=== PATIENT | male | born 1970 | race African-American/Black ===

== ENCOUNTER 2016-07-21 18:52 | Emergency (ER) | payer SELFPAY ==
[~2016-07-21] VITALS: Ht 172.7 cm; Wt 73.5 kg
[~2016-07-21 18:52] MED LIST: AGM875T PO; ALBU8.5H2 IH; CPR500T PO; INSU100I16 SQ; LISI2.5T PO; METF-380 PO
[2016-07-21] MEDS ORDERED: SERT50TA9 PO (19:06)
[2016-07-21] MEDS ORDERED: KETOROLAC 60 MG/2 ML VIAL IM ONE (19:30)
[2016-07-21] MEDS ORDERED: ORPHENADRINE 60 MG/2 ML (NORFLEX) AMP IM ONE (19:30)
--- NOTE | 2016-07-21 20:04 | Diagnostic Imaging Report ---
INDICATION: Status post fall with tailbone pain AP and lateral views of the sacrum and coccyx are obtained. Sacral foramina appear unremarkable. The SI joints appear unremarkable. There is no fracture or acute bony abnormality seen. IMPRESSION: Negative sacrum and coccyx. Dictated by: Dictated on workstation # [id number]
--- NOTE | 2016-07-21 20:05 | Diagnostic Imaging Report ---
INDICATION: Status post fall from truck with back pain AP and lateral views of the lumbar spine are obtained. The lumbar vertebrae are normal in height and alignment. There is no fracture or subluxation. There is no significant disc space narrowing. IMPRESSION: Negative lumbar spine. Dictated by: Dictated on workstation # [id number]
[2016-07-21] MEDS ORDERED: CYCL10TA9 PO (20:28)
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
[2016-07-21 20:37] VITALS: BP 110/66
== END 2016-07-21 20:33 | disposition home or self-care (01) ==
LOC: EDUNIT# 18:52 → ER 18:57
DX: S39.92XA Unspecified injury of lower back, initial encounter (principal); S19.9XXA Unspecified injury of neck, initial encounter; I10 Essential (primary) hypertension; E11.9 Type 2 diabetes mellitus without complications; F17.210 Nicotine dependence, cigarettes, uncomplicated; Z79.84 Long term (current) use of oral hypoglycemic drugs; Z79.4 Long term (current) use of insulin; W20.8XXA Other cause of strike by thrown, projected or falling object, initial encounter; W17.89XA Other fall from one level to another, initial encounter; Y99.8 Other external cause status
CPT/HCPCS: 72100; 72220; 96372; 99281

== ENCOUNTER 2017-01-05 01:44 | Emergency (ER) | payer SELFPAY ==
[~2017-01-05] VITALS: Ht 172.7 cm; Wt 68.0 kg
[~2017-01-05 01:44] MED LIST changes: +CYCL10TA9 PO; +SERT50TA9 PO
--- OUTSIDE RECORDS SUMMARY | 2017-01-05 01:51 | XMS REPORT ---
Author Author NEY MARTINEZ Organization [facility] Address [address] [place] [address] Care Team Providers Care Car Filler Name Role Phone MARTINEZNEY Greenwood Unavailable PROBLEMS Type Condition ICD9-CM Code SCK08-QL Code Onset Dates Condition Status SNOMED Code Problem Hyperlipidemia E78.5 Active 51456241 Problem Plantar wart B07.0 Active 77131549 Problem Mixed hyperlipidemia E78.2 Active 711802420 Problem Anxiety F41.9 Active 49308994 Problem Porokeratosis Q82.8 Active 285870077 Problem Osteoarthritis, unspecified osteoarthritis type, unspecified site M19.90 Active 314899322 Problem Essential hypertension I10 Active 65123505 Problem Neuropathy G62.9 Active 986956234 Problem 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 Active Problem Shoulder pain, left M25.512 Active 07171696 Problem Non compliance with medical treatment Z91.19 Active 8027467 Problem Non compliance w medication regimen Z91.14 Active 548947264 Problem Impotence N52.9 Active 103507831 Problem Type 2 diabetes mellitus with diabetic neuropathy E11.40 Active 9693745513002 ALLERGIES Unknown Allergies SOCIAL HISTORY No smoking Hx information available PLAN OF CARE VITAL SIGNS MEDICATIONS Medication Instructions Dosage Frequency Start Date End Date Duration Status Viagra 25 MG Orally Once a day 1 tablet as needed 24h Mar,Apr 30 day(s) Active RESULTS No Results PROCEDURES No Known procedures IMMUNIZATIONS No Known Immunizations
--- OUTSIDE RECORDS SUMMARY | 2017-01-05 01:51 | XMS REPORT ---
Author Author ALFREDITO MCINTYRE [facility] Address [address] [place] [address] Care Team Providers Care Radial Saw Operator Name Role Phone ALFREDITO MCINTYRE Unavailable PROBLEMS Type Condition ICD9-CM Code BRA33-XY Code Onset Dates Condition Status SNOMED Code Problem Hyperlipidemia E78.5 Active 66380521 Problem Plantar wart B07.0 Active 76950006 Problem Mixed hyperlipidemia E78.2 Active 016178813 Problem Anxiety F41.9 Active 81106378 Problem Porokeratosis Q82.8 Active 997414869 Problem Osteoarthritis, unspecified osteoarthritis type, unspecified site M19.90 Active 293718546 Problem Essential hypertension I10 Active 80677819 Problem Neuropathy G62.9 Active 637962289 Problem 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 Active Problem Shoulder pain, left M25.512 Active 10393827 Problem Non compliance with medical treatment Z91.19 Active 1895486 Problem Non compliance w medication regimen Z91.14 Active 557222989 Problem Impotence N52.9 Active 819421437 Problem Type 2 diabetes mellitus with diabetic neuropathy E11.40 Active 6718476370483 ALLERGIES Substance Reaction Event Type Date Status Lisinopril hypotension Drug Allergy Mar, Active SOCIAL HISTORY No smoking Hx information available PLAN OF CARE Activity Details Follow Up 4 Weeks Reason: VITAL SIGNS Height 68 in 2016-04-07 Weight 165.4 lbs 2016-04-07 Temperature 98.1 degrees Fahrenheit 2016-04-07 Heart Rate 80 bpm 2016-04-07 Respiratory Rate 20 2016-04-07 BMI 25.15 kg/m2 2016-04-07 Blood pressure systolic 118 mmHg 2016-04-07 Blood pressure diastolic 78 mmHg 2016-04-07 MEDICATIONS Medication Instructions Dosage Frequency Start Date End Date Duration Status Simvastatin 20 mg Orally Once a day at bedtime 1 tablet by Oral route 1 time per day Jan, Active BusPIRone HCl 10 mg Orally Twice a day 1 tablet 12Mar, Active GlipiZIDE 10 MG Orally 2 times a day 1 tablets 12h 27 Jan, 2014 Active MetFORMIN HCl ER (MOD) 500 MG Orally 2 times a day with meal 2 tablets twice day with meals May, Active Reglan 10 MG Orally 3 times a day, ac 1 Mar, Active Cozaar 25 MG Orally Once a day 0.5 tablet 24h Jan, Active RESULTS Name Result Date Reference Range CMP 2016-04-07 Glucose, Serum 131 65-99 BUN 13 6-24 Creatinine, Serum 0.92 0.76-1.27 eGFR If NonAfricn Am 100 >59 eGFR If Africn Am 116 >59 BUN/Creatinine Ratio 14 9-20 Sodium, Serum 143 134-144 Potassium, Serum 4.7 3.5-5.2 Chloride, Serum 104 96-106 Carbon Dioxide, Total 23 18-29 Calcium, Serum 9.2 8.7-10.2 Protein, Total, Serum 6.8 6.0-8.5 Albumin, Serum 4.2 3.5-5.5 Globulin, Total 2.6 1.5-4.5 A/G Ratio 1.6 1.1-2.5 Bilirubin, Total 0.4 0.0-1.2 Alkaline Phosphatase, S 63 39-117 AST (SGOT) 17 0-40 ALT (SGPT) 18 0-44 CBC 2016-04-07 WBC 3.8 3.4-10.8 RBC 3.47 4.14-5.80 Hemoglobin 12.4 12.6-17.7 Hematocrit 35.0 37.5-51.0 MCV 101 79-97 MCH 35.7 26.6-33.0 MCHC 35.4 31.5-35.7 RDW 12.5 12.3-15.4 Platelets 202 150-379 Neutrophils 35 Lymphs 53 Monocytes 11 Eos 1 Basos 0 Neutrophils (Absolute) 1.3 1.4-7.0 Lymphs (Absolute) 2.1 0.7-3.1 Monocytes(Absolute) 0.4 0.1-0.9 Eos (Absolute) 0.0 0.0-0.4 Baso (Absolute) 0.0 0.0-0.2 Immature Granulocytes 0 Immature Grans (Abs) 0.0 0.0-0.1 LIPID PANEL 2016-04-07 Cholesterol, Total 138 100-199 Triglycerides 76 0-149 HDL Cholesterol 55 >39 VLDL Cholesterol Elie 15 5-40 LDL Cholesterol Calc 68 0-99 Comment: PROCEDURES Procedure Date Ordered Related Diagnosis Body Site LIPID PANEL Apr 07, 2016 COMPLETE CBC W/AUTO DIFF WBC Apr 07, 2016 VENIPUNCT, ROUTINE* Apr 07, 2016 COMPREHEN METABOLIC PANEL Apr 07, 2016 Office Visit, Est Pt., Level 4 Apr 07, 2016 IMMUNIZATIONS No Known Immunizations
--- OUTSIDE RECORDS SUMMARY | 2017-01-05 01:51 | XMS REPORT ---
Author Author ALFREDITO MCINTYRE [facility] Address [address] [place] [address] Care Team Providers Care Lap Grinder Name Role Phone ALFREDITO MCINTYRE Unavailable PROBLEMS Type Condition ICD9-CM Code WVL96-QD Code Onset Dates Condition Status SNOMED Code Problem Hyperlipidemia E78.5 Active 82761204 Problem Plantar wart B07.0 Active 98143686 Problem Mixed hyperlipidemia E78.2 Active 445462111 Problem Anxiety F41.9 Active 66609196 Problem Porokeratosis Q82.8 Active 353230208 Problem Osteoarthritis, unspecified osteoarthritis type, unspecified site M19.90 Active 358111148 Problem Essential hypertension I10 Active 69131716 Problem Neuropathy G62.9 Active 252753052 Problem 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 Active Problem Shoulder pain, left M25.512 Active 67694287 Problem Non compliance with medical treatment Z91.19 Active 2348735 Problem Non compliance w medication regimen Z91.14 Active 913074261 Problem Impotence N52.9 Active 263494368 Problem Type 2 diabetes mellitus with diabetic neuropathy E11.40 Active 1233721167124 ALLERGIES Substance Reaction Event Type Date Status Lisinopril hypotension Drug Allergy Mar, Active SOCIAL HISTORY No smoking Hx information available PLAN OF CARE Activity Details Follow Up 1 Week Reason: VITAL SIGNS Height 68 in 2016-04-03 Weight 160.3 lbs 2016-04-03 Temperature 98.2 degrees Fahrenheit 2016-04-03 Heart Rate 82 bpm 2016-04-03 Respiratory Rate 20 2016-04-03 BMI 24.37 kg/m2 2016-04-03 Blood pressure systolic 114 mmHg 2016-04-03 Blood pressure diastolic 78 mmHg 2016-04-03 MEDICATIONS Medication Instructions Dosage Frequency Start Date End Date Duration Status Pen [place] 31G X 6 MM 1 24h Active Test strips Test Strips Contour test strips 2 times a day test blood sugar 12h 22 Sep, 2015 Active Levemir Flexpen 100 UNIT/ML Subcutaneous--per insulin sliding scale protocol 2 times a day 40 units 12h Active MetFORMIN HCl ER (MOD) 500 MG Orally 2 times a day with meal 2 tablets twice day with meals May, Active Reglan 10 MG Orally 3 times a day, ac 1 Mar, Active Simvastatin 20 mg Orally Once a day at bedtime 1 tablet by Oral route 1 time per day Jan, Active Cozaar 25 MG Orally Once a day 0.5 tablet 24h Jan, Active GlipiZIDE 10 MG Orally 2 times a day 1 tablets 12h Jan, Active RESULTS Name Result Date Reference Range A1C (IN HOUSE) 2016-04-03 A1C IN HOUSE 9.1 4.3 - 5.6 % Previous A1c 6.9 Lot [id number] Exp date 01/2018 PROCEDURES Procedure Date Ordered Related Diagnosis Body Site GLYCATED HEMOGLOBIN TEST Apr 03, 2016 Office Visit, Est Pt., Level 4 Apr 03, 2016 IMMUNIZATIONS No Known Immunizations
--- OUTSIDE RECORDS SUMMARY | 2017-01-05 01:52 | XMS REPORT ---
Author Author NEY MARTINEZ Organization [facility] Address [address] [place] [address] Care Team Providers Care Stripping Shovel Operator Name Role Phone MARTINEZNEY Greenwood Unavailable PROBLEMS Type Condition ICD9-CM Code LVL53-NA Code Onset Dates Condition Status SNOMED Code Problem Hyperlipidemia E78.5 Active 09898499 Problem Osteoarthritis, unspecified osteoarthritis type, unspecified site M19.90 Active 063001000 Problem Mixed hyperlipidemia E78.2 Active 861093757 Problem Anxiety F41.9 Active 86246693 Problem Porokeratosis Q82.8 Active 371304859 Problem Plantar wart B07.0 Active 04110427 Problem Essential hypertension I10 Active 39698833 Problem 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 Active Problem Neuropathy G62.9 Active 900614847 Problem Impotence N52.9 Active 366118459 Problem Type 2 diabetes mellitus with diabetic neuropathy E11.40 Active 0536517820073 Problem Shoulder pain, left M25.512 Active 43509560 Problem Non compliance with medical treatment Z91.19 Active 8162998 Problem Non compliance w medication regimen Z91.14 Active 665213001 ALLERGIES Substance Reaction Event Type Date Status Lisinopril hypotension Drug Allergy May, Active SOCIAL HISTORY Never Assessed PLAN OF CARE Activity Details Follow Up 3 Months Reason:[facility] VITAL SIGNS Height 68 in 2016-05-15 Weight 166.0 lbs 2016-05-15 Temperature 98.0 degrees Fahrenheit 2016-05-15 BMI 25.24 kg/m2 2016-05-15 Blood pressure systolic 144 mmHg 2016-05-15 Blood pressure diastolic 92 mmHg 2016-05-15 MEDICATIONS Medication Instructions Dosage Frequency Start Date End Date Duration Status Cozaar 25 MG Orally Once a day 0.5 tablet 24h Jan, 90 days Active Pen [place] 32G X 4 MM 1 12h 120 days Active Cialis 5 mg Orally Once a day PRN 1 tablet Dec, Jun, 90 days Active Glucocard Expression Test 1 kit In Vitro 3 times a day test 3 times per day 8h May, 12 months Active Simvastatin 20 mg Orally Once a day at bedtime 1 tablet by Oral route 1 time per day Jan, 90 days Active Reglan 10 MG Orally 3 times a day, ac 1 Mar, Active BusPIRone HCl 10 mg Orally Twice a day 1 tablet 12h Mar, 90 days Active Levemir Flexpen 100 UNIT/ML Subcutaneous--per insulin sliding scale protocol 2 times a day 40 units 12h 120 days Active Sertraline HCl 50 mg Orally Once a day 1 tablet 24h May, 90 days Active Test strips Test Strips Contour test strips 2 times a day test blood sugar 12h Sep, Jul, 25 days Active MetFORMIN HCl ER (MOD) 500 MG Orally 2 times a day with meal 2 tablets twice day with meals May, 90 days Active GlipiZIDE 10 MG Orally 2 times a day 1 tablets 12h Jan, 90 days Active RESULTS No Results PROCEDURES No Known procedures IMMUNIZATIONS No Known Immunizations MEDICAL (GENERAL) HISTORY Type Description Date Medical History DM Medical History Depression Medical History Diabetic Neuropathy Medical History Allergies Hospitalization History [facility]- dx'd w/ DM 2008 Hospitalization History WENT TO ER FOR COLD S/S 09/07/14
--- OUTSIDE RECORDS SUMMARY | 2017-01-05 01:52 | XMS REPORT ---
Author Author NEY MARTINEZ Organization [facility] Address [address] [place] [address] Care Team Providers Care Physiognomist Name Role Phone MARTINEZJAIME GreenwoodELE Unavailable PROBLEMS Type Condition ICD9-CM Code MKL84-JC Code Onset Dates Condition Status SNOMED Code Problem Hyperlipidemia E78.5 Active 42872544 Problem Osteoarthritis, unspecified osteoarthritis type, unspecified site M19.90 Active 901331436 Problem Mixed hyperlipidemia E78.2 Active 794846094 Problem Anxiety F41.9 Active 67953836 Problem Porokeratosis Q82.8 Active 453541050 Problem Plantar wart B07.0 Active 47082224 Problem Essential hypertension I10 Active 45792015 Problem 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 Active Problem Neuropathy G62.9 Active 753359537 Problem Impotence N52.9 Active 628998592 Problem Type 2 diabetes mellitus with diabetic neuropathy E11.40 Active 9667417657362 Problem Shoulder pain, left M25.512 Active 73933755 Problem Non compliance with medical treatment Z91.19 Active 4979938 Problem Non compliance w medication regimen Z91.14 Active 121513341 ALLERGIES Unknown Allergies SOCIAL HISTORY No smoking Hx information available PLAN OF CARE VITAL SIGNS MEDICATIONS Unknown Medications RESULTS No Results PROCEDURES No Known procedures IMMUNIZATIONS No Known Immunizations
--- OUTSIDE RECORDS SUMMARY | 2017-01-05 01:52 | XMS REPORT ---
Author Author NEY MARTINEZ Organization [facility] Address [address] [place] [address] Care Team Providers Care Java J2Ee Software Engineer Name Role Phone MARTINEZNEY Greenwood Unavailable PROBLEMS Type Condition ICD9-CM Code HJR55-SU Code Onset Dates Condition Status SNOMED Code Problem Hyperlipidemia E78.5 Active 89800595 Problem Osteoarthritis, unspecified osteoarthritis type, unspecified site M19.90 Active 845801519 Problem Mixed hyperlipidemia E78.2 Active 865573571 Problem Anxiety F41.9 Active 58459646 Problem Porokeratosis Q82.8 Active 687031205 Problem Plantar wart B07.0 Active 56065511 Problem Essential hypertension I10 Active 14926522 Problem 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 Active Problem Neuropathy G62.9 Active 864411199 Problem Impotence N52.9 Active 835061710 Problem Type 2 diabetes mellitus with diabetic neuropathy E11.40 Active 2374840431377 Problem Shoulder pain, left M25.512 Active 50432468 Problem Non compliance with medical treatment Z91.19 Active 2927021 Problem Non compliance w medication regimen Z91.14 Active 482493753 ALLERGIES Substance Reaction Event Type Date Status Lisinopril hypotension Drug Allergy Apr, Active SOCIAL HISTORY No smoking Hx information available PLAN OF CARE Activity Details Follow Up 4 Weeks Reason:f/u anxiety VITAL SIGNS Height 68 in 2016-04-17 Weight 165.3 lbs 2016-04-17 Temperature 97.6 degrees Fahrenheit 2016-04-17 Heart Rate 80 bpm 2016-04-17 Respiratory Rate 20 2016-04-17 BMI 25.13 kg/m2 2016-04-17 Blood pressure systolic 128 mmHg 2016-04-17 Blood pressure diastolic 84 mmHg 2016-04-17 MEDICATIONS Medication Instructions Dosage Frequency Start Date End Date Duration Status Levemir Flexpen 100 UNIT/ML Subcutaneous--per insulin sliding scale protocol 2 times a day 40 units 12h 120 days Active Reglan 10 MG Orally 3 times a day, ac 1 Mar, Active GlipiZIDE 10 MG Orally 2 times a day 1 tablets 12h Jan, 90 days Active Cozaar 25 MG Orally Once a day 0.5 tablet 24h Jan, 90 days Active Simvastatin 20 mg Orally Once a day at bedtime 1 tablet by Oral route 1 time per day Jan, 90 days Active Viagra 25 MG Orally Once a day 1 tablet as needed 24h Mar,Apr 30 day(s) Active Cialis 5 mg Orally Once a day PRN 1 tablet Dec, Jun, 90 days Active Pen [place] 32G X 4 MM 1 12h 120 days Active MetFORMIN HCl ER (MOD) 500 MG Orally 2 times a day with meal 2 tablets twice day with meals May, 90 days Active BusPIRone HCl 10 mg Orally Twice a day 1 tablet 12h Mar, 90 days Active Sertraline HCl 25 MG Orally Once a day 1 tablet 24h Apr, 30 day (s) Active RESULTS No Results PROCEDURES Procedure Date Ordered Related Diagnosis Body Site Office Visit, Est Pt., Level 4 Apr 17, 2016 IMMUNIZATIONS No Known Immunizations
--- OUTSIDE RECORDS SUMMARY | 2017-01-05 01:52 | XMS REPORT ---
Author Author ALFREDITO MCINTYRE [facility] Address [address] [place] [address] Care Team Providers Care Certified Midwife Name Role Phone ALFREDITO MCINTYRE Unavailable PROBLEMS Type Condition ICD9-CM Code APE80-RQ Code Onset Dates Condition Status SNOMED Code Problem Hyperlipidemia E78.5 Active 06742779 Problem Plantar wart B07.0 Active 88447612 Problem Mixed hyperlipidemia E78.2 Active 871391826 Problem Anxiety F41.9 Active 52118493 Problem Porokeratosis Q82.8 Active 023926185 Problem Osteoarthritis, unspecified osteoarthritis type, unspecified site M19.90 Active 119151697 Problem Essential hypertension I10 Active 35086765 Problem Neuropathy G62.9 Active 318341557 Problem 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 Active Problem Shoulder pain, left M25.512 Active 67361030 Problem Non compliance with medical treatment Z91.19 Active 7002529 Problem Non compliance w medication regimen Z91.14 Active 717937213 Problem Impotence N52.9 Active 487859661 Problem Type 2 diabetes mellitus with diabetic neuropathy E11.40 Active [id number] ALLERGIES Unknown Allergies SOCIAL HISTORY No smoking Hx information available PLAN OF CARE VITAL SIGNS MEDICATIONS Unknown Medications RESULTS No Results PROCEDURES No Known procedures IMMUNIZATIONS No Known Immunizations
--- OUTSIDE RECORDS SUMMARY | 2017-01-05 01:52 | XMS REPORT ---
Author Author NEY MARTINEZ Organization [facility] Address [address] [place] [address] Care Team Providers Care Slide Forming Machine Tender Name Role Phone MARTINEZNEY Greenwood Unavailable PROBLEMS Type Condition ICD9-CM Code PEG81-SP Code Onset Dates Condition Status SNOMED Code Problem Hyperlipidemia E78.5 Active 25599396 Problem Osteoarthritis, unspecified osteoarthritis type, unspecified site M19.90 Active 481426729 Problem Mixed hyperlipidemia E78.2 Active 795435731 Problem Anxiety F41.9 Active 15398885 Problem Porokeratosis Q82.8 Active 551210098 Problem Plantar wart B07.0 Active 53365059 Problem Essential hypertension I10 Active 11483674 Problem 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 Active Problem Neuropathy G62.9 Active 379039188 Problem Impotence N52.9 Active 840940378 Problem Type 2 diabetes mellitus with diabetic neuropathy E11.40 Active 9520291198862 Problem Shoulder pain, left M25.512 Active 66524176 Problem Non compliance with medical treatment Z91.19 Active 5958797 Problem Non compliance w medication regimen Z91.14 Active 112140588 ALLERGIES Unknown Allergies SOCIAL HISTORY No smoking Hx information available PLAN OF CARE VITAL SIGNS MEDICATIONS Medication Instructions Dosage Frequency Start Date End Date Duration Status Test strips Test Strips Contour test strips 2 times a day test blood sugar 12h Sep, Jul, 25 days Active RESULTS No Results PROCEDURES No Known procedures IMMUNIZATIONS No Known Immunizations
--- OUTSIDE RECORDS SUMMARY | 2017-01-05 01:52 | XMS REPORT ---
Author Author MICHELLE NEY Organization [facility] Address [address] [place] [address] Care Team Providers Care Journeyman Electrician Pv Installer Name Role Phone MARTINEZNEY Greenwood Unavailable PROBLEMS Type Condition ICD9-CM Code RUF62-RU Code Onset Dates Condition Status SNOMED Code Problem Hyperlipidemia E78.5 Active 61707665 Problem Plantar wart B07.0 Active 02282867 Problem Mixed hyperlipidemia E78.2 Active 177240869 Problem Anxiety F41.9 Active 61187742 Problem Porokeratosis Q82.8 Active 448127640 Problem Osteoarthritis, unspecified osteoarthritis type, unspecified site M19.90 Active 400817025 Problem Essential hypertension I10 Active 26006209 Problem Neuropathy G62.9 Active 713923448 Problem 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 Active Problem Shoulder pain, left M25.512 Active 55335761 Problem Non compliance with medical treatment Z91.19 Active 0284388 Problem Non compliance w medication regimen Z91.14 Active 770566968 Problem Impotence N52.9 Active 318233292 Problem Type 2 diabetes mellitus with diabetic neuropathy E11.40 Active [id number] ALLERGIES Unknown Allergies SOCIAL HISTORY No smoking Hx information available PLAN OF CARE VITAL SIGNS MEDICATIONS Medication Instructions Dosage Frequency Start Date End Date Duration Status Levemir Flexpen 100 UNIT/ML Subcutaneous--per insulin sliding scale protocol 2 times a day 40 units 12h 120 days Active Cialis 5 mg Orally Once a day PRN 1 tablet Dec, Jun, 90 days Active Pen [place] 32G X 4 MM 1 12h 120 days Active RESULTS No Results PROCEDURES No Known procedures IMMUNIZATIONS No Known Immunizations
--- OUTSIDE RECORDS SUMMARY | 2017-01-05 01:52 | XMS REPORT ---
Author Author NEY MARTINEZ Organization [facility] [place] Address [address] [place] [address] Care Team Providers Care House Detective Name Role Phone MARTINEZJAIME GreenwoodELE Unavailable PROBLEMS Type Condition ICD9-CM Code SVF79-JH Code Onset Dates Condition Status SNOMED Code Problem Hyperlipidemia E78.5 Active 07323970 Problem Osteoarthritis, unspecified osteoarthritis type, unspecified site M19.90 Active 554628021 Problem Mixed hyperlipidemia E78.2 Active 496055520 Problem Anxiety F41.9 Active 99113596 Problem Porokeratosis Q82.8 Active 849099240 Problem Plantar wart B07.0 Active 43265776 Problem Essential hypertension I10 Active 40155823 Problem 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 Active Problem Neuropathy G62.9 Active 740198527 Problem Impotence N52.9 Active 344877739 Problem Type 2 diabetes mellitus with diabetic neuropathy E11.40 Active 4084552911125 Problem Shoulder pain, left M25.512 Active 43967410 Problem Non compliance with medical treatment Z91.19 Active 9043022 Problem Non compliance w medication regimen Z91.14 Active 972808376 ALLERGIES Unknown Allergies SOCIAL HISTORY No smoking Hx information available PLAN OF CARE VITAL SIGNS MEDICATIONS Unknown Medications RESULTS No Results PROCEDURES No Known procedures IMMUNIZATIONS No Known Immunizations
--- NOTE | 2017-01-05 02:46 | ED Lower Extremity ---
General Chief Complaint: Lower Extremity Stated Complaint: LEFT FOOT BLISTER-PAINFUL Nursing Triage Note: PT CO OF L BOTTOM OF FOOT PAIN Nursing Sepsis Screen: No Definite Risk Source: patient Exam Limitations: no limitations History of Present Illness Time seen by provider: 02:25 Initial Comments Patient presents to ER by private conveyance with a chief complaint of pain in his left foot on the bottom. He says he saw his primary care physician earlier and was told it was a plantar wart and he should go see wound care at the hospital but was not given any referral or appointment. Patient has not done anything else for it but it got worse tonight after standing on for 10 hours for his job where he can't stand the pain anymore. He is having no fevers or chills. No nausea vomiting or diarrhea. He's never had a plantar wart before. Allergies and Home Medications Allergies Coded Allergies: No Known Drug Allergies (Unverified , 02/04/13) Home Medications Albuterol 8.5 Gm Hfa.aer.ad, 2 PUFF IH RTQ4HR PRN for SHORTNESS OF BREATH, #1 Ref 0 1 PUFFS Prescribed by: JULES MARY on 09/07/142130 Cyclobenzaprine HCl 10 Mg Tablet, 10 MG PO TID PRN for SPASMS, #10 Prescribed by: BLANQUITA DALAL on 07/21/162027 Insulin Detemir 100 Unit/1 Ml Insuln.pen, 25 UNIT SQ, (Reported) Metformin Hcl 1,000 Mg Tablet, 2 EACH PO BID WITH MEALS, (Reported) Sertraline HCl 50 Mg Tablet, 1 TAB PO UD, #30 (Reported) Constitutional: No chills, No diaphoresis, No fever EENTM: No ear discharge, No ear pain Respiratory: No cough, No short of breath Cardiovascular: No chest pain, No Hx of Intervention Gastrointestinal: No abdominal pain, No constipation, No diarrhea Genitourinary: No discharge, No dysuria Musculoskeletal: No joint pain, No joint swelling Skin: No pruritus, No rash Psychiatric/Neurological: Denies Headache, Denies Numbness, Denies Paresthesia Past Jtmnfsa-Ufxuxe-Xbbdmc Hx Patient Social History Alcohol Use: Occasionally Uses Number of Drinks Today: AA Alcohol Beverage of Choice: Beer Recreational Drug Use: No Type Used: Cigarettes 2nd Hand Smoke Exposure: Yes Recent Foreign Travel: No Contact w/Someone Who Travel: No Recent Infectious Disease Expo: No Recent Hopitalizations: No Physical Abuse: No Sexual Abuse: No Immunizations Up To Date Tetanus Booster (TDap): Unknown Seasonal Allergies Seasonal Allergies: No Surgeries History of Surgeries: No Respiratory History of Respiratory Disorde: Yes Respiratory Disorders: Asthma Cardiovascular History of Cardiac Disorders: Yes Cardiac Disorders: High Cholesterol, Hypertension Neurological History of Neurological Disord: No Reproductive System Hx Reproductive Disorders: No Sexually Transmitted Disease: No HIV/AIDS: No Gastrointestinal History of Gastrointestinal Di: No Musculoskeletal History of Musculoskeletal Dis: No Endocrine History of Endocrine Disorders: Yes Endocrine Disorders: Diabetes, Insulin dep Cancer History of Cancer: No Psychosocial History of Psychiatric Problem: No Suicide Risk Score: 0 Integumentary History of Skin or Integumenta: No Blood Transfusions History of Blood Disorders: No Adverse Reaction to a Blood Tr: No Family Medical History Significant Family History: No Pertinent Family Hx Physical Exam Vital Signs Vital Sign - Last 12Hours 01/05/17 02:10 Temp 97.2 Pulse 98 Resp 18 B/P (MAP) 149/80 Pulse Ox 98 Capillary Refill : Less Than 3 Seconds General Appearance: WD/WN, mild distress HEENT: PERRL/EOMI, pharynx normal Neck: non-tender, supple, normal inspection Cardiovascular: normal peripheral pulses, regular rate, rhythm, no edema Respiratory: chest non-tender, lungs clear, normal breath sounds Legs: bilateral leg non-tender, bilateral leg normal inspection, bilateral leg normal range of motion, bilateral leg no evidence of injury Knees: bilateral knee non-tender, bilateral knee normal inspection, bilateral knee normal range of motion, bilateral knee no evidence of injury Ankles: bilateral ankle non-tender, bilateral ankle normal inspection, bilateral ankle normal range of motion, bilateral ankle no evidence of injury Feet: right foot non-tender, right foot normal inspection, right foot normal range of motion, right foot no evidence of injury, left foot soft tissue tenderness, left foot other (lateral plantar wart that upon ultrasound examination does not demonstrate any evidence of abscess or fluid collection underneath. Fairly tender to palpation. No drainage or open pore.) Neurologic/Tendon: normal sensation, normal motor functions, normal tendon functions, responds to pain Neurologic/Psychiatric: no motor/sensory deficits, alert, oriented x 3 Skin: normal color, warm/dry Progress/Results/Core Measures Results/Orders Vital Signs/I&O Vital Sign - Last 12Hours 01/05/17 02:10 Temp 97.2 Pulse 98 Resp 18 B/P (MAP) 149/80 Pulse Ox 98 Blood Pressure Mean: 103 Progress Note : Time: 03:06 Progress Note Discussed at length that he should pick up driver some salicylic acid as well as using duct tape to smother the wound. He can also use moleskin to help support the warts a does not have as much pain when he steps down on it. He should follow- up with someone who can do cryotherapy and or other therapy for plantar warts. Departure Impression Impression: Primary Impression: Plantar wart of left foot Disposition: HOME, SELF-CARE Condition: Stable Departure-Patient Inst. Decision time for Depature: 03:08 Referrals: [facility] (PCP/Family) Primary Care Physician Patient Instructions: Plantar Warts (DC) Add. Discharge Instructions: Please pick up driver and apply a thin layer of salicylic acid over the wart twice a day and keep duct tape over the wart at night. During the day when you have to be on your feet I would suggest something like moleskin cut out so that it surrounds the wart and give you some support when you step down on your foot. Please review the handouts on warts and follow up with your primary care physician for either treatment using cryotherapy or cantharidin or referral to a office that has these therapies available. All discharge instructions reviewed with patient and/or family. Voiced understanding. Work/School Note: Work Release Form Date Seen in the Emergency Department: Jan 05, 2017 Return to Work: Jan 06, 2017 Restrictions: Need Release from Doctor Other Restrictions Listed Below: Minimize time standing/walking on left foot. Copy Copies To 1: RAD CASTRO TITUS J Jan 05, 2017 02:46
[2017-01-05 03:18] VITALS: BP 149/80
== END 2017-01-05 03:18 | disposition home or self-care (01) ==
LOC: EDUNIT# 01:44 → ER 01:48
DX: B07.0 Plantar wart (principal); J45.909 Unspecified asthma, uncomplicated; E78.00 Pure hypercholesterolemia, unspecified; I10 Essential (primary) hypertension; E11.9 Type 2 diabetes mellitus without complications; Z79.84 Long term (current) use of oral hypoglycemic drugs; Z79.4 Long term (current) use of insulin; Z77.22 Contact with and (suspected) exposure to environmental tobacco smoke (acute) (chronic)
CPT/HCPCS: 99283

== ENCOUNTER 2017-05-18 14:04 | Emergency (ER) | payer SELFPAY ==
[~2017-05-18] VITALS: Ht 172.7 cm; Wt 73.5 kg
[2017-05-18] MEDS ORDERED: ONDANSETRON 4 MG/2 ML (SDV) Z0FRAN IVP ONE (14:30)
[2017-05-18] MEDS ORDERED: ASPIRIN 81 MG CHEW (CHILDREN'S ASA) PO ONE (14:30)
[2017-05-18] MEDS ORDERED: NITROGLYCERIN 2% OINT 1 GM UNIT DOSE PACKET TOP ONE (14:30)
[2017-05-18 14:54] LABS: BASOPHILS % (AUTO) 0 % (0-10); EOSINOPHILS % (AUTO) 1 % (0-10); HEMATOCRIT 35 % (40-54); HEMOGLOBIN 12.3 G/DL (13.3-17.7); LYMPHOCYTES # (AUTO) 1.7 X 10^3 (1.0-4.0); LYMPHOCYTES % (AUTO) 56 % (12-44); MEAN CORPUSCULAR HEMOGLOBIN 38 PG (25-34); MEAN CORPUSCULAR HGB CONC 36 G/DL (32-36); MEAN CORPUSCULAR VOLUME 105 FL (80-99); MEAN PLATELET VOLUME 10.7 FL (7.4-10.4); MONOCYTES # (AUTO) 0.3 X 10^3 (0.0-1.0); MONOCYTES % (AUTO) 10 % (0-12); NEUTROPHILS % (AUTO) 33 % (42-75); PLATELET COUNT 173 10^3/uL (130-400); RED BLOOD COUNT 3.28 10^6/uL (4.35-5.85); RED CELL DISTRIBUTION WIDTH 12.6 % (10.0-14.5)
--- NOTE | 2017-05-18 14:55 | Diagnostic Imaging Report ---
INDICATION: Chest pain. FINDINGS: The lungs are clear. The heart and vessels are normal. There is no effusion or pneumothorax. Hilar and mediastinal contour is normal. IMPRESSION: Normal frontal chest. Dictated by: Dictated on workstation # [id number]
--- NOTE | 2017-05-18 15:01 | ED Chest Pain ---
General Chief Complaint: Chest Pain Stated Complaint: CP LEFT SIDE Nursing Triage Note: PT REPORTS L SIDED CP STARTING AT 2129 LAST NIGHT WHILE AT WORK. 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 PT REPROTS CP RADIATES TO HIS L ARM AND IS INTERMITTENT. Nursing Sepsis Screen: No Definite Risk Source: patient History of Present Illness Date Seen by Provider: May 18, 2017 Time Seen by Provider: 14:14 Initial Comments PT ARRIVES VIA POV FROM HOME STATES HE HAS BEEN HAVING INTERMITTENT SHARP PAINS IN LEFT CHEST SINCE AROUND 2129 LAST NIGHT AT WORK--WORKS AT [employer] AND HAS BEEN LIFTING ALOT OF HEAVY THINGS, MORE THAN USUAL NOTHING WORSENS OR IMPROVES PAIN NO SHORTNESS OF BREATH OR PAIN WITH DEEP BREATHS NO SWEATS NO SWELLING IN LEGS/ FEET OR PAIN IN CALVES + NAUSEA, NO VOMITING NO HISTORY OF SIMILAR NO COUGH, FEVER, URI SYMPTOMS OR RECENT ILLNESS PT IS BLACK MALE WITH HISTORY OF HTN AND DIABETES--TAKES BOTH INSULIN AND ORAL DIABETIC MEDICATIONS. HAS BEEN DIABETIC FOR OVER 20 YEARS, WAS DIAGNOSED IN HIS 20'S. PT ADMITS TO OCCASIONALLY MISSING DOSES OF HIS MEDICATIONS, BUT STATES HE HAS NOT MISSED ANY IN THE LAST WEEK PT RARELY CHECKS HIS BLOOD SUGAR, BUT WAS 221 THIS AM. PT NEVER CHECKS HIS BLOOD PRESSURE AND HAS NO IDEA WHAT IT NORMALLY RUNS. 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 Gillian MARTINEZ--ROUTINE APPOINTMENT ON Wednesday05/21/17 AT 1300 Allergies and Home Medications Allergies Coded Allergies: No Known Drug Allergies (Unverified , 02/04/13) Home Medications Albuterol 8.5 Gm Hfa.aer.ad, 2 PUFF IH RTQ4HR PRN for SHORTNESS OF BREATH, #1 Ref 0 1 PUFFS Prescribed by: JULES MARY on 09/07/142130 Cyclobenzaprine HCl 10 Mg Tablet, 10 MG PO TID PRN for SPASMS, #10 Prescribed by: BLANQUITA DALAL on 07/21/162027 Insulin Detemir 100 Unit/1 Ml Insuln.pen, 25 UNIT SQ, (Reported) Metformin Hcl 1,000 Mg Tablet, 2 EACH PO BID WITH MEALS, (Reported) Sertraline HCl 50 Mg Tablet, 1 TAB PO UD, #30 (Reported) Review of Systems Constitutional: no symptoms reported EENTM: No Symptoms Reported Respiratory: No Symptoms Reported Cardiovascular: See HPI, Chest Pain, Denies Edema, Denies Irregular Heart Rate , Denies Lightheadedness, Denies Palpitations, Denies Syncope Gastrointestinal: See HPI, Denies Abdominal Pain, Nausea, Denies Vomiting Genitourinary: No Symptoms Reported Musculoskeletal: no symptoms reported Skin: no symptoms reported Psychiatric/Neurological: No Symptoms Reported Endocrine: No Symptoms Reported Hematologic/Lymphatic: No Symptoms Reported Past Ulyotfp-Lsrbdk-Tiwozu Hx Patient Social History Alcohol Use: Regular Use (DRINKS A PINT OF WHISKEY ON WEEKENDS) Number of Drinks Today: AA Alcohol Beverage of Choice: Beer, Whiskey Recreational Drug Use: No Smoking Status: Current Everyday Smoker (1 PPD, MORE WHEN HE IS DRINKING) Type Used: Cigarettes (1 PPD, MORE WHEN HE IS DRINKING) 2nd Hand Smoke Exposure: Yes Recent Foreign Travel: No Contact w/Someone Who Travel: No Recent Infectious Disease Expo: No Recent Hopitalizations: No Physical Abuse: No Sexual Abuse: No Mistreated: No Fear: No Immunizations Up To Date Tetanus Booster (TDap): Unknown Seasonal Allergies Seasonal Allergies: No Surgeries History of Surgeries: No Respiratory History of Respiratory Disorde: Yes Respiratory Disorders: Asthma Cardiovascular History of Cardiac Disorders: Yes Cardiac Disorders: High Cholesterol, Hypertension Neurological History of Neurological Disord: Yes (NEUROPATHY IN HANDS AND FEET) Neurological Disorders: Neuropathy Reproductive System Hx Reproductive Disorders: No Sexually Transmitted Disease: No HIV/AIDS: No Genitourinary History of Genitourinary Disor: No Gastrointestinal History of Gastrointestinal Di: No Musculoskeletal History of Musculoskeletal Dis: No Endocrine History of Endocrine Disorders: Yes Endocrine Disorders: Diabetes, Insulin dep HEENT History of HEENT Disorders: No Cancer History of Cancer: No Psychosocial History of Psychiatric Problem: No Suicide Risk Score: 0 Integumentary History of Skin or Integumenta: No Blood Transfusions History of Blood Disorders: No Adverse Reaction to a Blood Tr: No Family Medical History Significant Family History: No Pertinent Family Hx Physical Exam Vital Signs Vital Signs - First Documented 05/18/17 14:23 Temp 97.5 Pulse 74 Resp 10 B/P (MAP) 175/106 (129) Pulse Ox 100 O2 Delivery Room Air Capillary Refill : Less Than 3 Seconds General Appearance: No Apparent Distress, WD/WN HEENT: PERRL/EOMI Neck: Full Range of Motion, Normal Inspection, Non Tender, Supple, No Carotid Bruit, No JVD Respiratory: Chest Non Tender, Normal Breath Sounds, No Accessory Muscle Use, No Respiratory Distress Cardiovascular: Regular Rate, Rhythm, No Edema, No Gallop, No JVD, No Murmur, Normal Peripheral Pulses Gastrointestinal: Normal Bowel Sounds, No Organomegaly, No Pulsatile Mass, Non Tender, Soft Extremity: Normal Capillary Refill, Normal Inspection, Normal Range of Motion, Non Tender, No Calf Tenderness, No Pedal Edema Neurologic/Psychiatric: Alert, Oriented x3, No Motor/Sensory Deficits, Normal Mood/Affect, sewer tapper II-XII Norm as Tested Skin: Normal Color, Warm/Dry, Tattoos/Piercings Progress/Results/Core Measures Results/Orders Lab Results Laboratory Tests Test 05/18/17 14:47 05/18/17 15:07 Range/Units White Blood Count 3.0 L 4.3-11.0 10^3/uL Red Blood Count 3.28 L 4.35-5.85 10^6/uL Hemoglobin 12.3 L 13.3-17.7 G/DL Hematocrit 35 L 40-54 % Mean Corpuscular Volume 105 H 80-99 FL Mean Corpuscular Hemoglobin 38 H 25-34 PG Mean Corpuscular Hemoglobin Concent 36 32-36 G/DL Red Cell Distribution Width 12.6 10.0-14.5 % Platelet Count 173 130-400 10^3/uL Mean Platelet Volume 10.7 H 7.4-10.4 FL Neutrophils (%) (Auto) 33 L 42-75 % Lymphocytes (%) (Auto) 56 H 12-44 % Monocytes (%) (Auto) 10 0-12 % Eosinophils (%) (Auto) 1 0-10 % Basophils (%) (Auto) 0 0-10 % Neutrophils # (Auto) 1.0 L 1.8-7.8 X 10^3 Lymphocytes # (Auto) 1.7 1.0-4.0 X 10^3 Monocytes # (Auto) 0.3 0.0-1.0 X 10^3 Eosinophils # (Auto) 0.0 0.0-0.3 10^3/uL Basophils # (Auto) 0.0 0.0-0.1 10^3/uL Prothrombin Time 13.1 12.2-14.7 SEC INR Comment 1.0 0.8-1.4 Activated Partial Thromboplast Time 28 24-35 SEC Sodium Level 138 135-145 MMOL/L Potassium Level 4.0 3.6-5.0 MMOL/L Chloride Level 104 98-107 MMOL/L Carbon Dioxide Level 24 21-32 MMOL/L Anion Gap 10 5-14 MMOL/L Blood Urea Nitrogen 6 L 7-18 MG/DL Creatinine 0.77 0.60-1.30 MG/DL Estimat Glomerular Filtration Rate > 60 BUN/Creatinine Ratio 8 Glucose Level 200 H 70-105 MG/DL Calcium Level 9.7 8.5-10.1 MG/DL Magnesium Level 1.7 L 1.8-2.4 MG/DL Total Bilirubin 0.8 0.1-1.0 MG/DL Aspartate Amino Transf (AST/SGOT) 25 5-34 U/L Alanine Aminotransferase (ALT/SGPT) 21 0-55 U/L Alkaline Phosphatase 70 40-136 U/L Troponin I < 0.30 <0.30 NG/ML B-Type Natriuretic Peptide 351.8 H <100.0 PG/ML Total Protein 7.5 6.4-8.2 GM/DL Albumin 4.0 3.2-4.5 GM/DL Amylase Level 64 25-125 U/L Lipase 33 8-78 U/L TSH [place] Testing 1.21 0.35-4.94 UIU/ML Serum Alcohol < 10 <10 MG/DL Urine Color YELLOW Urine Clarity CLEAR Urine pH 8 5-9 Urine Specific [place] 1.010 L 1.016-1.022 Urine Protein 2+ H NEGATIVE Urine Glucose (UA) 3+ H NEGATIVE Urine Ketones NEGATIVE NEGATIVE Urine Nitrite NEGATIVE NEGATIVE Urine Bilirubin NEGATIVE NEGATIVE Urine Urobilinogen NORMAL NORMAL MG/DL Urine Leukocyte Esterase NEGATIVE NEGATIVE Urine RBC (Auto) NEGATIVE NEGATIVE Urine RBC NONE /HPF Urine WBC NONE /HPF Urine Squamous Epithelial Cells 0-2 /HPF Urine Crystals NONE /LPF Urine Bacteria NEGATIVE /HPF Urine Casts NONE /LPF Urine Mucus NEGATIVE /LPF Urine Culture Indicated NO Urine Opiates Screen NEGATIVE NEGATIVE Urine Oxycodone Screen NEGATIVE NEGATIVE Urine Methadone Screen NEGATIVE NEGATIVE Urine Propoxyphene Screen NEGATIVE NEGATIVE Urine Barbiturates Screen NEGATIVE NEGATIVE Ur Tricyclic Antidepressants Screen NEGATIVE NEGATIVE Urine Phencyclidine Screen NEGATIVE NEGATIVE Urine Amphetamines Screen NEGATIVE NEGATIVE Urine Methamphetamines Screen NEGATIVE NEGATIVE Urine Benzodiazepines Screen NEGATIVE NEGATIVE Urine Cocaine Screen NEGATIVE NEGATIVE Urine Cannabinoids Screen NEGATIVE NEGATIVE My Orders Orders - DAMION VALLES DO Ekg Tracing (05/18/17 14:09) Saline Lock/Iv-Start (05/18/17 14:28) Monitor-Rhythm Ecg Trace Only (05/18/17 14:28) Alcohol (05/18/17 14:28) Amylase (05/18/17 14:28) BNP (05/18/17 14:28) Cbc With Automated Diff (05/18/17 14:28) Comprehensive Metabolic Panel (05/18/17 14:28) Drug Screen Stat (Urine) (05/18/17 14:28) Lipase (05/18/17 14:28) Magnesium (05/18/17 14:28) Protime With Inr (05/18/17 14:28) Partial Thromboplastin Time (05/18/17 14:28) Thyroid Analyzer (05/18/17 14:28) Troponin I (05/18/17 14:28) Ua Culture If Indicated (05/18/17 14:28) Chest 1 View, Ap/Pa Only (05/18/17 14:28) Aspirin Chewable Tablet (Baby Aspirin Ch (05/18/17 14:30) Nitroglycerin Ointment (Nitrobid Ointme (05/18/17 14:30) Ondansetron Injection (Zofran Injectio (05/18/17 14:30) Labetalol Injection (Normodyne Injection (05/18/17 16:00) Medications Given in ED Current Medications Medications Dose Ordered Sig/Sherri Route Start Time Stop Time Status Last Admin Dose Admin Aspirin 324 mg ONCE ONCE PO 05/18/17 14:30 05/18/17 14:31 DC 05/18/17 14:39 324 MG Labetalol HCl 10 mg ONCE ONCE IV 05/18/17 16:00 05/18/17 16:01 DC 05/18/17 16:20 10 MG Nitroglycerin 1 inch ONCE ONCE TOP 05/18/17 14:30 05/18/17 14:31 DC 05/18/17 14:39 1 INCH Ondansetron HCl 4 mg ONCE ONCE IVP 05/18/17 14:30 05/18/17 14:31 DC 05/18/17 14:39 4 MG Vital Signs/I&O Vital Sign - Last 12Hours 2/6/18 2/6/18 2/6/18 14:23 14:23 17:19 Temp 97.5 Pulse 74 62 Resp 10 16 B/P (MAP) 175/106 (129) Pulse Ox 100 97 O2 Delivery Room Air Blood Pressure Mean: 129 Progress Note : Progress Note BP DOWN TO 148/95 PRIOR TO DISMISSAL PT IS SYMPTOM-FREE ECG Initial ECG Impression Time: 14:14 Initial ECG Rate: 82 Initial ECG Rhythm: Normal Sinus Initial ECG Impression: Nonspecific Changes Initial ECG Comparisson: No Previous ECG Available Diagnostic Imaging Comments CXR--NO ACUTE PROCESS, PER RADIOLOGIST REPORT @ 1504 Reviewed: Reviewed by Tx Departure Communication (PCP) 2842--ATTEMPTING TO CONTACT DR. Jaun SAGE, MESSAGE LEFT ON CELL 1611--SPOKE WITH DR. Juan SAGE. SHE WILL ARRANGE FOR OUTPATIENT STRESS TEST TOMORROW OR WEDNESDAY AND THEN PT CAN KEEP REGULAR APPOINTMENT ON WEDNESDAY TO REVIEW RESULTS. THEY WILL CONTACT PT IN THE MORNING REGARDING SCHEDULING THIS. Impression Impression: Primary Impression: Chest pain Additional Impressions: HTN (hypertension) IDDM (insulin dependent diabetes mellitus) Disposition: HOME, SELF-CARE Condition: Improved Departure-Patient Inst. Referrals: [facility] (PCP/Family) Primary Care Physician Patient Instructions: Chest Pain (DC), Controlling Your Blood Pressure Through Lifestyle, Heart Healthy Diet, High Blood Pressure (DC), High Blood Pressure Emergencies, Medicines for High Blood Pressure Add. Discharge Instructions: TAKE YOUR MEDICATIONS PRESCRIBED FOLLOW UP WITH [facility] FOR OUTPATIENT STRESS TEST--THEY WILL CALL YOU IN THE MORNING TO ARRANGE RETURN TO ER IF SYMPTOMS WORSEN All discharge instructions reviewed with patient and/or family. Voiced understanding. DAMION VALLES DO May 18, 2017 15:01
[2017-05-18 15:11] LABS: PROTHROMBIN TIME PATIENT 13.1 SEC (12.2-14.7)
[2017-05-18 15:18] LABS: BILIRUBIN,URINE NEGATIVE (NEGATIVE); CLARITY,URINE CLEAR; COLOR,URINE YELLOW; GLUCOSE, URINE (UA) 3+ (NEGATIVE); KETONES,URINE NEGATIVE (NEGATIVE); LEUKOCYTE ESTERASE ,URINE NEGATIVE (NEGATIVE); NITRITE,URINE NEGATIVE (NEGATIVE); PH,URINE 8 (5-9); PROTEIN,URINE 2+ (NEGATIVE); UROBILINOGEN,URINE NORMAL (NORMAL)
[2017-05-18 15:22] LABS: ALANINE AMINOTRANSFERASE 21 U/L (0-55); ALKALINE PHOSPHATASE 70 U/L (40-136); AMYLASE 64 U/L (25-125); BILIRUBIN,TOTAL 0.8 MG/DL (0.1-1.0); BUN/CREATININE RATIO 8; CALCIUM 9.7 MG/DL (8.5-10.1); CARBON DIOXIDE 24 MMOL/L (21-32); CHLORIDE 104 MMOL/L (98-107); CREATININE SERUM 0.77 MG/DL (0.60-1.30); GFR ESTIMATED > 60; GLUCOSE 200 MG/DL (70-105); LIPASE 33 U/L (8-78); MAGNESIUM 1.7 MG/DL (1.8-2.4); SODIUM 138 MMOL/L (135-145); TOTAL PROTEIN 7.5 GM/DL (6.4-8.2)
[2017-05-18 15:33] LABS: BACTERIA,URINE NEGATIVE /HPF; SQUAMOUS EPITHELIAL CELL,UR 0-2 /HPF
[2017-05-18 15:41] LABS: AMPHETAMINE SCREEN, URINE NEGATIVE (NEGATIVE); BARBITURATE SCREEN URINE NEGATIVE (NEGATIVE); BENZODIAZEPINES SCREEN URINE NEGATIVE (NEGATIVE); CANNABINOID SCREEN, URINE NEGATIVE (NEGATIVE); COCAINE SCREEN URINE NEGATIVE (NEGATIVE); METHADONE STAT NEGATIVE (NEGATIVE); METHAMPHETAMINE SCREEN URINE S NEGATIVE (NEGATIVE); OPIATE SCREEN URINE NEGATIVE (NEGATIVE); OXYCODONE STAT NEGATIVE (NEGATIVE); PROPOXYPHENE STAT NEGATIVE (NEGATIVE); TRICYCLIC ANTIDEPRESSANTS SCRE NEGATIVE (NEGATIVE)
[2017-05-18 15:41] LABS: TSH (THYROID ANALYZER) 1.21 UIU/ML (0.35-4.94)
[2017-05-18] MEDS ORDERED: LABETALOL HCL 20 MG/4 ML VIAL IV ONE (16:00)
[2017-05-18 17:19] VITALS: BP 140/92
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
== END 2017-05-18 17:19 | disposition home or self-care (01) ==
LOC: EDUNIT# 14:04 → ER 14:06
DX: R07.9 Chest pain, unspecified (principal); I10 Essential (primary) hypertension; E11.40 Type 2 diabetes mellitus with diabetic neuropathy, unspecified; J45.909 Unspecified asthma, uncomplicated; F17.210 Nicotine dependence, cigarettes, uncomplicated; Z79.4 Long term (current) use of insulin
CPT/HCPCS: 36415; 71045; 80053; 80306; 80320; 81000; 82150; 83690; 83735; 83880; 84443; 84484; 85025; 85610; 85730; 93005; 93041; 96374; 96375

== ENCOUNTER → 2017-05-27 | Outpatient (CLI) | payer SELFPAY ==
--- NOTE | 2017-05-28 09:09 | Cardiology Stress Test Report ---
Stress Test Report Date of Procedure/Referring: Date of Procedure: May 28, 2017 PCP Amrita Saini MD Admitting Physician [place] Indications: Chest pain Baseline EKG: Baseline EKG: sinus rhythm Summary: The patient was brought to the stress lab after informed consent was taken. Stress test was performed according to the Rajinder protocol. Baseline EKG showed sinus rhythm at 87 bpm. Blood pressure was 119/71 mmHg. Patient exercised for 9 minutes and 1 second. Metabolic equal lengths 10.5. Maximum heart rate was 149 bpm which is 86 percent of maximum predicted heart rate response. Blood pressure 171/80 mmHg. Patient did not have any chest pain, ST-T wave abnormalities or arrhythmias during the stress test. Conclusion: Exercise stress test is negative for ischemia. Above average functional capacity. Normotensive response to exercise. Adelaida DOMINGUEZ MD May 28, 2017 09:09
== END ==
LOC: CARD 11:42
PROVIDERS: ATTEND Pediatrics
DX: R07.9 Chest pain, unspecified (principal)
CPT/HCPCS: 93017

== ENCOUNTER 2017-06-12 00:22 | Emergency (ER) | payer SELFPAY ==
[~2017-06-12] VITALS: Ht 172.7 cm; Wt 68.0 kg
[2017-06-12] MEDS ORDERED: LACTATED RINGERS 1,000 ML IV ONE (00:36)
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
[2017-06-12] MEDS ORDERED: ONDANSETRON 4 MG/2 ML (SDV) Z0FRAN IVP ONE (00:45)
[2017-06-12 01:00] LABS: BASOPHILS % (AUTO) 0 % (0-10); EOSINOPHILS % (AUTO) 0 % (0-10); HEMATOCRIT 31 % (40-54); HEMOGLOBIN 11.2 G/DL (13.3-17.7); LYMPHOCYTES # (AUTO) 2.4 X 10^3 (1.0-4.0); LYMPHOCYTES % (AUTO) 40 % (12-44); MEAN CORPUSCULAR HEMOGLOBIN 38 PG (25-34); MEAN CORPUSCULAR HGB CONC 36 G/DL (32-36); MEAN CORPUSCULAR VOLUME 105 FL (80-99); MEAN PLATELET VOLUME 9.5 FL (7.4-10.4); MONOCYTES # (AUTO) 0.5 X 10^3 (0.0-1.0); MONOCYTES % (AUTO) 9 % (0-12); NEUTROPHILS # (AUTO) 3.1 X 10^3 (1.8-7.8); NEUTROPHILS % (AUTO) 51 % (42-75); PLATELET COUNT 190 10^3/uL (130-400); RED BLOOD COUNT 2.96 10^6/uL (4.35-5.85)
[2017-06-12 01:19] LABS: ALANINE AMINOTRANSFERASE 20 U/L (0-55); ALBUMIN 3.9 GM/DL (3.2-4.5); ALKALINE PHOSPHATASE 57 U/L (40-136); BILIRUBIN,TOTAL 0.3 MG/DL (0.1-1.0); BUN/CREATININE RATIO 12; CALCIUM 8.9 MG/DL (8.5-10.1); CARBON DIOXIDE 18 MMOL/L (21-32); CHLORIDE 107 MMOL/L (98-107); CREATININE SERUM 0.94 MG/DL (0.60-1.30); GFR ESTIMATED > 60; POTASSIUM 3.4 MMOL/L (3.6-5.0); SODIUM 140 MMOL/L (135-145); TOTAL PROTEIN 7.1 GM/DL (6.4-8.2)
[2017-06-12] MEDS ORDERED: DEXTROSE 50% 50 ML (IMS) SYR ONE (01:23)
[2017-06-12 01:24] LABS: GLUCOSE 59 MG/DL (70-105)
[2017-06-12] MEDS ORDERED: DEXTROSE 50% 50 ML (IMS) SYR IV ONE (01:30)
[2017-06-12] MEDS ORDERED: KETOROLAC 30 MG/ML VIAL IVP ONE (01:45)
[2017-06-12 02:25] VITALS: BP 134/88
[2017-06-12] MEDS ORDERED: ACETAMINOPHEN 500 MG TAB (TYLENOL) PO ONE (02:30)
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
== END 2017-06-12 02:25 | disposition home or self-care (01) ==
LOC: EDUNIT# 00:27 → ER 00:29
DX: T14.8XXA Other injury of unspecified body region, initial encounter (principal); R07.81 Pleurodynia; E11.65 Type 2 diabetes mellitus with hyperglycemia; E11.40 Type 2 diabetes mellitus with diabetic neuropathy, unspecified; E78.00 Pure hypercholesterolemia, unspecified; I10 Essential (primary) hypertension; F10.129 Alcohol abuse with intoxication, unspecified; J45.909 Unspecified asthma, uncomplicated; F17.210 Nicotine dependence, cigarettes, uncomplicated; Z79.84 Long term (current) use of oral hypoglycemic drugs; V53.5XXA Driver of pick-up truck or van injured in collision with car, pick-up truck or van in traffic accident, initial encounter
CPT/HCPCS: 36415; 70450; 71045; 72125; 73030; 73080; 73562; 80053; 80320; 82962; 84484; 85025

== ENCOUNTER 2018-01-12 15:57 | Inpatient (IN) | payer OTHER ==
[~2018-01-12] VITALS: Ht 172.7 cm; Wt 69.4 kg
[2018-01-12] VITALS (8 sets, daily range): BP systolic 92–106; BP diastolic 52–68
--- OUTSIDE RECORDS SUMMARY | 2018-01-12 16:03 | XMS REPORT ---
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 Active Problem Essential hypertension I10 Active 38150519 Problem Acute idiopathic gout involving toe of right foot M10.071 Active 17691839 Problem Major depressive disorder, single episode, unspecified F32.9 Active 12203560 Problem Anxiety F41.9 Active 31785201 Problem Neuropathy G62.9 Active 612793024 Problem terminal gauger (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) use of insulin Z79.4 Active 289656361 Problem Acute nonseasonal allergic rhinitis due to pollen J30.1 Active 44725312 Problem Non compliance w medication regimen Z91.14 Active 603158666 Problem Non compliance with medical treatment Z91.19 Active 3312893 Problem Abnormal CBC R79.89 Active 298407379 Problem Impotence N52.9 Active 895187731 Problem Type 2 diabetes mellitus with diabetic neuropathy E11.40 Active 3474491720402 Problem Mixed hyperlipidemia E78.2 Active 613584645 ALLERGIES No Known Allergies ENCOUNTERS Encounter Location Date Diagnosis [facility] [id number] [id number] Nov, Dental caries K02.9 [facility] [id number] [id number] Nov, Dental examination Z01.20 [facility] [id number] [id number] Oct, Acute oral pain K13.79 [facility] [id number] [id number] Oct, [facility] [id number] [place] [address]15- 8769 Oct, [facility] [id number] [place] [address] 56993- 4249 Oct, Epigastric abdominal pain R10.13 ; Type 2 diabetes mellitus with diabetic neuropathy E11.40 ; Mixed hyperlipidemia E78.2 ; Essential hypertension I10 ; Major depressive disorder, single episode, unspecified F32.9 ; Neuropathy G62.9 and Non compliance w medication regimen Z91.14 [facility] [id number] [place] [address]48 -6898 Oct, [facility] [address] [address] August, [place] [id number] [place] [address] 71446- 4539 August, Type 2 diabetes mellitus with diabetic neuropathy E11.40 ; Mixed hyperlipidemia E78.2 ; Essential hypertension I10 ; Acute idiopathic gout involving toe of right foot M10.071 ; Neuropathy G62.9 and Major depressive disorder, single episode, unspecified F32.9 [place] [id number] [place] [address] 40146- 7507 August, [place] [id number] [place] [address] 77248- 8813 Jul, Essential hypertension I10 ; Neuropathy G62.9 and Musculoskeletal pain M79.1 [place] [id number] [place] [address] 46785- 0521 14 May, 2017 [place] [id number] [place] [address] 70819- 5311 09 May, 2017 Type 2 diabetes mellitus with diabetic neuropathy E11.40 ; terminal gauger (current) use of insulin Z79.4 ; Essential hypertension I10 ; Mixed hyperlipidemia E78.2 ; Non compliance w medication regimen Z91.14 ; Non compliance with medical treatment Z91.19 ; Injury of right thumb, initial encounter S69.91XA and Major depressive disorder, single episode, unspecified F32.9 [place] [id number] [place] [address] 17214- 1284 08 May, 2017 [facility] [address] 38239- 5028 May, [facility] [id number] [place] [address] 43718- 4014 May, Chest pain, unspecified type R07.9 and Type 2 diabetes mellitus with diabetic neuropathy E11.40 [place] [id number] [place] [address] 52671- 6287 May, [place] [address] 9[address]36- 6904 Feb, Abnormal CBC R79.89 [place] [address] 44001- 6236 Feb, [place] [id number] [place] [address] 71971- 2155 Jan, Type 2 diabetes mellitus with diabetic neuropathy E11.40 ; Mixed hyperlipidemia E78.2 ; Neuropathy G62.9 ; Osteoarthritis, unspecified osteoarthritis type, unspecified site M19.90 ; Acute nonseasonal allergic rhinitis due to pollen J30.1 ; Impotence N52.9 ; Anxiety F41.9 ; Essential hypertension I10 and Non compliance w medication regimen Z91.14 [place] [id number] [place] [address] 14797- 3024 Oct, [facility] [id number] [place] [address] 56891 -8962 Sep, Type 2 diabetes mellitus with diabetic neuropathy E11.40 ; Non compliance w medication regimen Z91.14 ; Non compliance with medical treatment Z91.19 and Foot pain, left M79.672 [facility] [id number] [place] [address] 81723- 4055 Jul, [facility] [id number] [place] [address] 77756- 2675 Jul, [facility] [address] [address] 9[address] May, Anxiety F41.9 ; Type 2 diabetes mellitus with diabetic neuropathy E11.40 ; Non compliance w medication regimen Z91.14 ; Mixed hyperlipidemia E78.2 and Essential hypertension I10 [facility] [address] [place] [address] 13953- 7402 Apr, Osteoarthritis, unspecified osteoarthritis type, unspecified site M19.90 [facility] [id number] [place] [address] 90308- 4856 Apr, [place] [id number] [place] [address] 78082- 5009 Apr, Type 2 diabetes mellitus with diabetic neuropathy E11.40 ; Non compliance w medication regimen Z91.14 ; Mixed hyperlipidemia E78.2 ; Essential hypertension I10 ; Plantar wart B07.0 and Anxiety F41.9 [place] [address] [place] [address] 75548- 2548 Apr, [facility] [id number] [place] [address] 58126- 8717 Apr, [facility] [id number] [place] [address] 47851- 9131 Mar, Osteoarthritis, unspecified osteoarthritis type, unspecified site M19.90 and Impotence N52.9 [place] [address] [place] [address] 21737- 2790 Mar, [facility] [id number] [place] [address] 37245- 8785 Mar, Type 2 diabetes mellitus with diabetic neuropathy E11.40 ; Anxiety F41.9 and Intractable vomiting with nausea, unspecified vomiting type R11.2 [facility] [address] [place] [address] 62775- 6861 Mar, Type 2 diabetes mellitus with diabetic neuropathy E11.40 and Intractable vomiting with nausea, unspecified vomiting type R11.2 [place] [id number] [place] [address] 29984- 9379 Feb, Porokeratosis Q82.8 and Type 2 diabetes mellitus with diabetic neuropathy E11.40 [place] [id number] [place] [address] 44165- 5011 Jan, [place] [id number] [place] [address] 36884- 6895 Dec, [place] [id number] [place] [address] 60382- 0251 Dec, Type 2 diabetes mellitus with diabetic neuropathy E11.40 ; Non compliance w medication regimen Z91.14 ; Impotence N52.9 ; Essential hypertension I10 ; Hyperlipidemia E78.5 ; Neuropathy G62.9 ; 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 and Plantar wart B07.0 [place] [address] 11759- 4246 Dec, [place] [id number] [place] [address] 04323- 1637 Nov, Dental examination Z01.20 [place] [id number] [place] [address] 48997- 1216 Oct, Osteoarthritis, unspecified osteoarthritis type, unspecified site M19.90 ; Type 2 diabetes mellitus with diabetic neuropathy E11.40 ; Impotence N52.9 ; Mixed hyperlipidemia E78.2 ; Hyperlipidemia E78.5 ; Essential hypertension I10 and Plantar wart B07.0 [place] [id number] [place] [address] 66951- 8028 Sep, [place] [address] 58203- 9780 August, Abnormal thyroid blood test R94.6 [place] [id number] [place] [address] 82860- 2723 August, Dental examination Z01.20 [place] [address] [place] [address]- 9084 August, Type 2 diabetes mellitus with diabetic neuropathy E11.40 ; Non compliance w medication regimen Z91.14 ; Impotence N52.9 ; Mixed hyperlipidemia E78.2 ; Abscessed tooth K04.7 and Shoulder pain, left M25.512 [place] [id number] [place] [address] 73209- 1207 May, Type 2 diabetes mellitus with diabetic neuropathy E11.40 ; Non compliance w medication regimen Z91.14 ; Non compliance with medical treatment Z91.19 ; Shoulder pain, left M25.512 ; General medical exam Z00.00 ; Impotence N52.9 and Hyperlipidemia E78.5 [place] [address] 13669- 2997 Jan, Type 2 diabetes mellitus with diabetic neuropathy E11.40 ; Noncompliance w/medication treatment due to intermit use of medication Z91.14 and Impotence N52.9 [place] [address] 50919- 5125 Jan, [place] [address] 81576- 2479 Dec, [place] [id number] [place] [address] 41818- 2570 Nov, [place] [id number] [place] [address] 13890- 1815 Nov, [place] [address] 09584- 8677 Nov, [place] [id number] [place] [address] 07073- 4615 Nov, Diabetes with neurological manifestations, type II or unspecified type, not stated as uncontrolled 250.60 ; Hyperlipidemia 272.4 ; Allergic rhinitis, cause unspecified 477.9 and Depression [address] [id number] [place] [address] 03913- 9756 Sep, [place] [address] [id number] [place] [address]- 7756 Sep, [facility] [address] [id number] [place] [address]- 9555 Sep, [facility] [address] [id number] [place] [address]- 3125 Sep, Depression 311 and Diabetes type 2, uncontrolled 250.02 [facility] [address] [id number] [place] [address]- 2872 August, [facility] [address] [id number] [place] [address]- 4451 Jul, [facility] [address] [id number] [place] [address]- 0424 Jul, [facility] [address] [id number] [place] [address]- 3962 Apr, [facility] [address] [id number] [place] [address]- 9765 Apr, [facility] [address] [id number] [place] [address]- 3678 Apr, [facility] [address] [id number] [place] [address]- 6339 Apr, [facility] [address] [id number] [address]- 6453 Jan, [facility] [place] [facility] [address] [id number], [place] [address]- 4090 Jan, [facility] [place] [facility] [address] [id number] [place] [address]- 1409 Nov, [facility] [address] [id number] [place] [address]- 3663 Nov, [facility] [place] [facility] [address] [id number] [place] [address]- 4507 Nov, [facility] [address] [id number] [place] [address]- 1886 Nov, [facility] [place] [facility] [address] [id number] [place] [address]- 3468 Nov, [facility] [place] [facility] [address] [id number] [place] [address]- 2485 Nov, [facility] [place] [facility] [address] [id number] [place] [address]- 9556 Nov, [facility] [place] [facility] [address] [id number] [place] [address]- 1427 Nov, [facility] [place] [facility] [address] [id number] [place] [address]- 4487 August, [facility] [place] [facility] [address] [id number] [place] [address]- 7555 August, [facility] [place] [facility] [address] [id number] [place] [address]- 4969 August, [facility] [place] [facility] [address] [id number] [place] [address]- 6011 August, [facility] [place] [facility] [address] [id number] [place] [address]- 1161 August, [facility] [place] [facility] [address] [id number] [place] [address]- 3005 May, [facility] [place] [facility] [address] [id number] [place] [address]- 3439 May, [facility] [place] [facility] [address] [id number] [place] [address]- 6962 May, [facility] [place] [facility] [address] [id number] [place] [address]- 5519 May, [facility] [place] [facility] [address] [id number] [place] [address]- 1269 Apr, [facility] [place] [facility] [address] [id number] [place] [address]- 7016 Apr, [facility] [place] [facility] [address] [id number] [place] [address]- 4800 Jan, [facility] [place] [facility] [address] [id number] [place] [address]- 3915 Jan, [facility] [place] [facility] [address] [id number] [place] [address]- 5838 Jan, [facility] [place] [facility] [address] [id number] [place] [address]- 7300 Jan, [facility] [place] [facility] [address] [id number] [place] [address]- 6855 Jan, [facility] [place] [facility] [address] [id number] [place] [address]- 7106 30 Dec, 2012 [facility] [place] [facility] [address] [id number] [place] [address]- 8669 30 Dec, 2012 [facility] [place] [facility] [address] [id number] [place] [address]- 8948 Dec, [facility] [place] [facility] [address] [id number] [place] [address]- 2632 Dec, [facility] [place] [facility] [address] [id number], [place] [address]- 0862 Dec, [facility] [place] [facility] [address] [id number], [place] [address]- 5518 Nov, [facility] [place] [facility] [address] [id number], [place] [address]- 0005 Nov, [facility] [place] [facility] [address] [id number] [place] [address]- 1227 Nov, [facility] [place] [facility] [address] [id number], [place] [address]- 4676 Nov, [facility] [place] [facility] [address] [id number], [place] [address]- 3181 Nov, [facility] [place] [facility] [address] [id number], [place] [address]- 3826 Nov, IMMUNIZATIONS No Known Immunizations SOCIAL HISTORY Never Assessed REASON FOR VISIT Facial swelling PLAN OF CARE Activity Details Follow Up 1 Week Reason:#9-te VITAL SIGNS Height 68 in 2017-11-10 Blood pressure systolic 146 mmHg 2017-11-10 Blood pressure diastolic 107 mmHg 2017-11-10 MEDICATIONS Medication Instructions Dosage Frequency Start Date End Date Duration Status GlipiZIDE XL 10 mg Orally Once a day 1 tablet 24h Oct, 90 days Active Levemir Flexpen 100 UNIT/ML Subcutaneous--per insulin sliding scale protocol 2 times a day 30 units 12h Active Pen Lapaz 32G X 4 MM 1 12h 120 days Active Cozaar 25 MG Orally Once a day 0.5 tablet 24h Jan, 90 days Active Sertraline HCl 50 mg Orally Once a day 1 tablet 24h May, 30 days Active Ondansetron 4 MG Orally every 4 hrs 1 tablet on the tongue and allow to dissolve as needed 4h Oct, 07 days Active MetFORMIN HCl ER (MOD) 500 mg Orally 2 times a day with meal 2 tablets twice day with meals May, 30 days Active Simvastatin 20 mg Orally Once a day at bedtime 1 tablet by Oral route 1 time per day Jan, 90 days Active Gabapentin 300 MG Orally Once a day 1 capsule before bedtime 24h Jul, 90 days Active Amoxicillin 500 MG Orally every 8 hrs 1 capsule 8h Oct, Nov, 10 day(s) Active Glucocard Expression Test 1 kit subcutaneously 3 times a day test 3 times per day 8h May, 12 months Active [place] 5-325 MG Orally every 6 hrs 1 tablet as needed 6h 4 days Active Pantoprazole Sodium 40 mg Orally Once a day 1 tablet 24h Oct, 30 day(s) Active RESULTS No Results PROCEDURES Procedure Date Ordered Result Body Site LTD ORAL EVALUATION - PROBLEM FOCUS Nov 10, 2017 INTRAORL-PERIAPICAL 1 FILM [id number] Nov 10, 2017 INSTRUCTIONS MEDICATIONS ADMINISTERED No Known Medications MEDICAL (GENERAL) HISTORY Type Description Date Medical History DM Medical History Depression Medical History Diabetic Neuropathy Medical History Allergies Medical History Porokeratosis Medical History Plantar wart Medical History 05/2017- Negative exercise stress test Dr Perdomo Hospitalization History [facility]- dx'd w/ DM 2008 Hospitalization History WENT TO ER FOR COLD S/S 09/07/14 Hospitalization History HTN, went to ER May 18, 2017
--- OUTSIDE RECORDS SUMMARY | 2018-01-12 16:03 | XMS REPORT ---
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 Active Problem Essential hypertension I10 Active 23698670 Problem Acute idiopathic gout involving toe of right foot M10.071 Active 86679243 Problem Major depressive disorder, single episode, unspecified F32.9 Active 69763230 Problem Anxiety F41.9 Active 14023972 Problem Neuropathy G62.9 Active 305478872 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 Active 650676323 Problem Acute nonseasonal allergic rhinitis due to pollen J30.1 Active 45527918 Problem Non compliance w medication regimen Z91.14 Active 357382084 Problem Non compliance with medical treatment Z91.19 Active 3565530 Problem Abnormal CBC R79.89 Active 025389349 Problem Impotence N52.9 Active 144147038 Problem Type 2 diabetes mellitus with diabetic neuropathy E11.40 Active 1342293020152 Problem Mixed hyperlipidemia E78.2 Active 796624603 ALLERGIES No Known Allergies ENCOUNTERS Encounter Location Date Diagnosis [facility] [place] [facility] [address] [id number] [id number] Nov, Dental caries K02.9 [facility] [place] [facility] [address] [facility] [id number] [id number] Nov, Dental examination Z01.20 [facility] [place] [facility] [address] [id number] [id number] Oct, Acute oral pain K13.79 [facility] [address] [id number] [address] Oct, [facility] [id number] [place] [address] 06830- 6772 Oct, [facility] [id number] [place] [address] 94974- 2197 Oct, Epigastric abdominal pain R10.13 ; Type 2 diabetes mellitus with diabetic neuropathy E11.40 ; Mixed hyperlipidemia E78.2 ; Essential hypertension I10 ; Major depressive disorder, single episode, unspecified F32.9 ; Neuropathy G62.9 and Non compliance w medication regimen Z91.14 [facility] [id number] [place] [address] 21233 -5347 Oct, [facility] [address] [address] August, [id number] [place] [address] 51841- 0606 August, Type 2 diabetes mellitus with diabetic neuropathy E11.40 ; Mixed hyperlipidemia E78.2 ; Essential hypertension I10 ; Acute idiopathic gout involving toe of right foot M10.071 ; Neuropathy G62.9 and Major depressive disorder, single episode, unspecified F32.9 [place] [id number] [place] [address] 12523- 3915 August, [place] [id number] [place] [address] 52944- 3549 Jul, Essential hypertension I10 ; Neuropathy G62.9 and Musculoskeletal pain M79.1 [place] [id number] [place] [address] 49806- 8344 14 May, 2017 [place] [id number] [place] [address] 13280- 6055 09 May, 2017 Type 2 diabetes mellitus with diabetic neuropathy E11.40 ; 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 ; Essential hypertension I10 ; Mixed hyperlipidemia E78.2 ; Non compliance w medication regimen Z91.14 ; Non compliance with medical treatment Z91.19 ; Injury of right thumb, initial encounter S69.91XA and Major depressive disorder, single episode, unspecified F32.9 [id number] [place] [address] 75037- 1089 08 May, 2017 [facility] [address] 89062- 5623 May, [facility] [id number] [place] [address] 18163- 3413 May, Chest pain, unspecified type R07.9 and Type 2 diabetes mellitus with diabetic neuropathy E11.40 [place] [id number] [place] [address] 17033- 6171 May, [place] [address] 05303- 7125 Feb, Abnormal CBC R79.89 [place] [address] 13650- 6447 Feb, [place] [id number] [place] [address] 06081- 5180 Jan, Type 2 diabetes mellitus with diabetic neuropathy E11.40 ; Mixed hyperlipidemia E78.2 ; Neuropathy G62.9 ; Osteoarthritis, unspecified osteoarthritis type, unspecified site M19.90 ; Acute nonseasonal allergic rhinitis due to pollen J30.1 ; Impotence N52.9 ; Anxiety F41.9 ; Essential hypertension I10 and Non compliance w medication regimen Z91.14 [place] [id number] [place] [address] 36238- 5865 Oct, [facility] [id number] [place] [address] 42114 -8421 Sep, Type 2 diabetes mellitus with diabetic neuropathy E11.40 ; Non compliance w medication regimen Z91.14 ; Non compliance with medical treatment Z91.19 and Foot pain, left M79.672 [facility] [id number] [place] [address] 97029- 7980 Jul, [facility] [id number] [place] [address] 57637- 9104 Jul, [facility] [address] [address] May, Anxiety F41.9 ; Type 2 diabetes mellitus with diabetic neuropathy E11.40 ; Non compliance w medication regimen Z91.14 ; Mixed hyperlipidemia E78.2 and Essential hypertension I10 [facility] [address] [place] [address] 46241- 8819 Apr, Osteoarthritis, unspecified osteoarthritis type, unspecified site M19.90 [facility] [id number] [place] [address] 08941- 7178 Apr, [place] [id number] [place] [address] 33521- 0476 Apr, Type 2 diabetes mellitus with diabetic neuropathy E11.40 ; Non compliance w medication regimen Z91.14 ; Mixed hyperlipidemia E78.2 ; Essential hypertension I10 ; Plantar wart B07.0 and Anxiety F41.9 [place] [place] [address] 06586- 2483 Apr, [facility] [id number] [place] [address] 66745- 6097 Apr, [facility] [id number] [place] [address] 53375- 4326 Mar, Osteoarthritis, unspecified osteoarthritis type, unspecified site M19.90 and Impotence N52.9 [place] [place] [address] 07994- 1929 Mar, [facility] [id number] [place] [address] 51732- 3429 Mar, Type 2 diabetes mellitus with diabetic neuropathy E11.40 ; Anxiety F41.9 and Intractable vomiting with nausea, unspecified vomiting type R11.2 [facility] [address] [place] [address] 07399- 2680 Mar, Type 2 diabetes mellitus with diabetic neuropathy E11.40 and Intractable vomiting with nausea, unspecified vomiting type R11.2 [place] [id number] [place] [address] 27757- 0563 Feb, Porokeratosis Q82.8 and Type 2 diabetes mellitus with diabetic neuropathy E11.40 [place] [id number] [place] [address] 98313- 2751 Jan, [place] [id number] [place] [address] 90076- 0323 Dec, [place] [id number] [place] [address] 62855- 9593 Dec, Type 2 diabetes mellitus with diabetic neuropathy E11.40 ; Non compliance w medication regimen Z91.14 ; Impotence N52.9 ; Essential hypertension I10 ; Hyperlipidemia E78.5 ; Neuropathy G62.9 ; 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 and Plantar wart B07.0 [place] [address] 64982- 5520 Dec, [place] [id number] [place] [address] 35933- 8734 Nov, Dental examination Z01.20 [place] [id number] [place] [address] 71967- 9219 Oct, Osteoarthritis, unspecified osteoarthritis type, unspecified site M19.90 ; Type 2 diabetes mellitus with diabetic neuropathy E11.40 ; Impotence N52.9 ; Mixed hyperlipidemia E78.2 ; Hyperlipidemia E78.5 ; Essential hypertension I10 and Plantar wart B07.0 [place] [id number] [place] [address] 97734- 1556 Sep, [place] [address] 18031- 3131 August, Abnormal thyroid blood test R94.6 [place] [id number] [place] [address] 16613- 4984 August, Dental examination Z01.20 [place] [place] [address]- 7128 August, Type 2 diabetes mellitus with diabetic neuropathy E11.40 ; Non compliance w medication regimen Z91.14 ; Impotence N52.9 ; Mixed hyperlipidemia E78.2 ; Abscessed tooth K04.7 and Shoulder pain, left M25.512 [place] [id number] [place] [address] 73524- 9381 May, Type 2 diabetes mellitus with diabetic neuropathy E11.40 ; Non compliance w medication regimen Z91.14 ; Non compliance with medical treatment Z91.19 ; Shoulder pain, left M25.512 ; General medical exam Z00.00 ; Impotence N52.9 and Hyperlipidemia E78.5 [address] 89040- 2998 Jan, Type 2 diabetes mellitus with diabetic neuropathy E11.40 ; Noncompliance w/medication treatment due to intermit use of medication Z91.14 and Impotence N52.9 [place] [address] 73811- 2939 Jan, [place] [address] 79490- 9229 Dec, [place] [id number] [place] [address] 81467- 4028 Nov, [place] [id number] [place] [address] 39321- 9191 Nov, [place] [address] 56401- 2113 Nov, [place] [id number] [place] [address] 12316- 1732 Nov, Diabetes with neurological manifestations, type II or unspecified type, not stated as uncontrolled 250.60 ; Hyperlipidemia 272.4 ; Allergic rhinitis, cause unspecified 477.9 and Depression [id number] [place] [address] 40200- 5858 Sep, [address] [address] [id number] [place] [address]- 2738 Sep, [facility] [address] [id number] [place] [address]- 1977 Sep, [facility] [address] [id number] [place] [address]- 6107 Sep, Depression 311 and Diabetes type 2, uncontrolled 250.02 [facility] [address] [id number] [place] [address]- 2888 August, [facility] [address] [id number] [place] [address]- 6997 Jul, [facility] [address] [id number] [place] [address]- 8253 Jul, [facility] [address] [id number] [place] [address]- 2964 Apr, [facility] [address] [id number] [place] [address]- 8814 Apr, [facility] [address] [id number] [place] [address]- 2759 Apr, [facility] [address] [id number] [place] [address]- 9215 Apr, [facility] [address] [id number] [address]- 9751 Jan, [facility] [place] [facility] [address] [id number] [address]- 1173 Jan, [facility] [place] [facility] [address] [id number] [place] [address]- 2177 Nov, [facility] [address] [id number] [place] [address]- 5400 Nov, [facility] [place] [facility] [address] [id number] [place] [address]- 7075 Nov, [facility] [address] [id number] [place] [address]- 4475 Nov, [facility] [place] [facility] [address] [id number] [place] [address]- 6238 Nov, [facility] [place] [facility] [address] [id number] [place] [address]- 1897 Nov, [facility] [place] [facility] [address] [id number] [place] [address]- 2786 Nov, [facility] [place] [facility] [address] [id number] [place] [address]- 9553 Nov, [facility] [place] [facility] [address] [id number] [place] [address]- 9592 August, [facility] [place] [facility] [address] [id number] [place] [address]- 1778 August, [facility] [place] [facility] [address] [id number] [place] [address]- 9265 August, [facility] [place] [facility] [address] [id number] [place] [address]- 8707 August, [facility] [place] [facility] [address] [id number] [place] [address]- 8186 August, [facility] [place] [facility] [address] [id number] [place] [address]- 7477 May, [facility] [place] [facility] [address] [id number] [place] [address]- 4522 May, [facility] [place] [facility] [address] [id number] [place] [address]- 7942 May, [facility] [place] [facility] [address] [id number] [place] [address]- 1947 May, [facility] [place] [facility] [address] [id number] [place] [address]- 6510 Apr, [facility] [place] [facility] [address] [id number] [place] [address]- 8512 Apr, [facility] [place] [facility] [address] [id number] [place] [address]- 2656 Jan, [facility] [place] [facility] [address] [id number] [place] [address]- 1119 Jan, [facility] [place] [facility] [address] [id number] [place] [address]- 3132 Jan, [facility] [place] [facility] [address] [id number] [place] [address]- 7462 Jan, [facility] [place] [facility] [address] [id number] [place] [address]- 5266 Jan, [facility] [place] [facility] [address] [id number] [place] [address]- 6817 30 Dec, 2012 [facility] [place] [facility] [address] [id number] [place] [address]- 6834 30 Dec, 2012 [facility] [place] [facility] [address] [id number] [place] [address]- 7634 Dec, [facility] [place] [facility] [address] [id number] [place] [address]- 3612 Dec, [facility] [place] [facility] [address] [id number], [place] [address]- 0942 Dec, [facility] [place] [facility] [address] [id number], [place] [address]- 8405 Nov, [facility] [place] [facility] [address] [id number], [place] [address]- 9753 Nov, [facility] [place] [facility] [address] [id number] [place] [address]- 8844 Nov, [facility] [place] [facility] [address] [id number], [place] [address]- 0503 Nov, [facility] [place] [facility] [address] [id number], [place] [address]- 6598 Nov, [facility] [place] [facility] [address] [id number], [place] [address]- 2546 Nov, IMMUNIZATIONS No Known Immunizations SOCIAL HISTORY Never Assessed REASON FOR VISIT TE PLAN OF CARE Activity Details Follow Up prn Reason: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 flipper VITAL SIGNS Height 68 in 2017-11-16 Blood pressure systolic 118 mmHg 2017-11-16 Blood pressure diastolic 70 mmHg 2017-11-16 MEDICATIONS Medication Instructions Dosage Frequency Start Date End Date Duration Status Cozaar 25 MG Orally Once a day 0.5 tablet 24h Jan, 90 days Active Gabapentin 300 MG Orally Once a day 1 capsule before bedtime 24h Jul, 90 days Active GlipiZIDE XL 10 mg Orally Once a day 1 tablet 24h Oct, 90 days Active Pen [place] 32G X 4 MM 1 12h 120 days Active Amoxicillin 500 MG Orally every 8 hrs 1 capsule 8h Oct, Nov, 10 day(s) Active Glucocard Expression Test 1 kit subcutaneously 3 times a day test 3 times per day 8h May, 12 months Active MetFORMIN HCl ER (MOD) 500 mg Orally 2 times a day with meal 2 tablets twice day with meals May, 30 days Active Simvastatin 20 mg Orally Once a day at bedtime 1 tablet by Oral route 1 time per day Jan, 90 days Active Pantoprazole Sodium 40 mg Orally Once a day 1 tablet 24h Oct, 30 day(s) Active Levemir Flexpen 100 UNIT/ML Subcutaneous--per insulin sliding scale protocol 2 times a day 30 units 12h Active Sertraline HCl 50 mg Orally Once a day 1 tablet 24h May, 30 days Active Ondansetron 4 MG Orally every 4 hrs 1 tablet on the tongue and allow to dissolve as needed 4h Oct, 07 days Active RESULTS No Results PROCEDURES Procedure Date Ordered Result Body Site EXTRAC ERUPTED TOOTH/EXPOSED ROOT Nov 16, 2017 INSTRUCTIONS MEDICATIONS ADMINISTERED No Known Medications MEDICAL (GENERAL) HISTORY Type Description Date Medical History DM Medical History Depression Medical History Diabetic Neuropathy Medical History Allergies Medical History Porokeratosis Medical History Plantar wart Medical History 05/2017- Negative exercise stress test Dr Perdomo Hospitalization History [facility]- dx'd w/ DM 2008 Hospitalization History WENT TO ER FOR COLD S/S 09/07/14 Hospitalization History HTN, went to ER May 18, 2017
--- OUTSIDE RECORDS SUMMARY | 2018-01-12 16:04 | XMS REPORT ---
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 Active Problem Essential hypertension I10 Active 93611607 Problem Acute idiopathic gout involving toe of right foot M10.071 Active 89960448 Problem Major depressive disorder, single episode, unspecified F32.9 Active 27159774 Problem Anxiety F41.9 Active 82986111 Problem Neuropathy G62.9 Active 720002156 Problem 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 Active 784409723 Problem Acute nonseasonal allergic rhinitis due to pollen J30.1 Active 80970245 Problem Non compliance w medication regimen Z91.14 Active 264027245 Problem Non compliance with medical treatment Z91.19 Active 4489263 Problem Abnormal CBC R79.89 Active 906052665 Problem Impotence N52.9 Active 230959453 Problem Type 2 diabetes mellitus with diabetic neuropathy E11.40 Active 4199981566823 Problem Mixed hyperlipidemia E78.2 Active 413068597 ALLERGIES No Information ENCOUNTERS Encounter Location Date Diagnosis [facility] [id number] [place] [address] [id number] Nov, Dental caries K02.9 [facility] [id number] [place] [address] [id number] Nov, Dental examination Z01.20 [facility] [id number] [place] [address] [id number] Oct, Acute oral pain K13.79 [facility] [id number] [place] [address] 01920- 0439 Oct, [facility] [id number] [place] [address] 71852- 6866 Oct, [facility] [facility] [id number] [place] [address] 87116- 1050 Oct, Epigastric abdominal pain R10.13 ; Type 2 diabetes mellitus with diabetic neuropathy E11.40 ; Mixed hyperlipidemia E78.2 ; Essential hypertension I10 ; Major depressive disorder, single episode, unspecified F32.9 ; Neuropathy G62.9 and Non compliance w medication regimen Z91.14 [facility] [id number] [place] [address] 63625 -8987 Oct, [facility] [id number] [place] [address] 39820 -6856 August, [facility] [id number] [place] [address] 88782- 8795 August, Type 2 diabetes mellitus with diabetic neuropathy E11.40 ; Mixed hyperlipidemia E78.2 ; Essential hypertension I10 ; Acute idiopathic gout involving toe of right foot M10.071 ; Neuropathy G62.9 and Major depressive disorder, single episode, unspecified F32.9 [facility] [id number] [place] [address] 98451- 3049 August, [facility] [id number] [place] [address] 15538- 7676 Jul, Essential hypertension I10 ; Neuropathy G62.9 and Musculoskeletal pain M79.1 [facility] [id number] [place] [address] 29493- 2340 14 May, 2017 [facility] [id number] [place] [address] 83659- 0609 09 May, 2017 Type 2 diabetes mellitus with diabetic neuropathy E11.40 ; FPC (current) use of insulin Z79.4 ; Essential hypertension I10 ; Mixed hyperlipidemia E78.2 ; Non compliance w medication regimen Z91.14 ; Non compliance with medical treatment Z91.19 ; Injury of right thumb, initial encounter S69.91XA and Major depressive disorder, single episode, unspecified F32.9 [facility] [id number] [address] May, [facility] [id number] [place] [address] 11688- 8418 May, [facility] [id number] [place] [address] 72957- 3254 May, Chest pain, unspecified type R07.9 and Type 2 diabetes mellitus with diabetic neuropathy E11.40 [facility] [id number] [place] [address] 56228- 7819 May, [facility] [id number] [place] [address] 86060- 9902 Feb, Abnormal CBC R79.89 [facility] [id number] [place] [address] 32380- 8909 Feb, [facility] [id number] [place] [address] 52497- 2203 Jan, Type 2 diabetes mellitus with diabetic neuropathy E11.40 ; Mixed hyperlipidemia E78.2 ; Neuropathy G62.9 ; Osteoarthritis, unspecified osteoarthritis type, unspecified site M19.90 ; Acute nonseasonal allergic rhinitis due to pollen J30.1 ; Impotence N52.9 ; Anxiety F41.9 ; Essential hypertension I10 and Non compliance w medication regimen Z91.14 [facility] [id number] [place] [address] 29440- 5769 Oct, [facility] [address] [place] [address] 65795 -0274 Sep, Type 2 diabetes mellitus with diabetic neuropathy E11.40 ; Non compliance w medication regimen Z91.14 ; Non compliance with medical treatment Z91.19 and Foot pain, left M79.672 [facility] [address] [place] [address] 17736- 5029 Jul, [facility] [id number] [place] [address] 78920- 5242 Jul, [facility] [id number] [place] [address] 40676- 0262 May, Anxiety F41.9 ; Type 2 diabetes mellitus with diabetic neuropathy E11.40 ; Non compliance w medication regimen Z91.14 ; Mixed hyperlipidemia E78.2 and Essential hypertension I10 [facility] [id number] [place] [address] 44990- 5454 Apr, Osteoarthritis, unspecified osteoarthritis type, unspecified site M19.90 [facility] [id number] [place] [address] 21917- 6430 Apr, [facility] [id number] [place] [address] 32745- 0680 Apr, Type 2 diabetes mellitus with diabetic neuropathy E11.40 ; Non compliance w medication regimen Z91.14 ; Mixed hyperlipidemia E78.2 ; Essential hypertension I10 ; Plantar wart B07.0 and Anxiety F41.9 [facility] [id number] [place] [address] 38388- 9416 Apr, [facility] [facility] [id number] [place] [address] 46872- 4535 Apr, [facility] [id number] [place] [address] 01447- 8494 Mar, Osteoarthritis, unspecified osteoarthritis type, unspecified site M19.90 and Impotence N52.9 [facility] [id number] [place] [address] 70914- 3696 Mar, [facility] [id number] [place] [address] 13036- 1099 Mar, Type 2 diabetes mellitus with diabetic neuropathy E11.40 ; Anxiety F41.9 and Intractable vomiting with nausea, unspecified vomiting type R11.2 [facility] [id number] [place] [address] 68792- 8053 Mar, Type 2 diabetes mellitus with diabetic neuropathy E11.40 and Intractable vomiting with nausea, unspecified vomiting type R11.2 [facility] [id number] [place] [address] 24794- 5500 Feb, Porokeratosis Q82.8 and Type 2 diabetes mellitus with diabetic neuropathy E11.40 [facility] [id number] [place] [address] 35780- 7780 Jan, [facility] [facility] [id number] [place] [address] 95083- 8716 Dec, [facility] [facility] [id number] [place] [address] 13117- 9185 Dec, Type 2 diabetes mellitus with diabetic neuropathy E11.40 ; Non compliance w medication regimen Z91.14 ; Impotence N52.9 ; Essential hypertension I10 ; Hyperlipidemia E78.5 ; Neuropathy G62.9 ; 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 and Plantar wart B07.0 [facility] [id number] [place] [address] 35029- 3401 Dec, [facility] [id number] [place] [address] 22694- 2039 Nov, Dental examination Z01.20 [facility] [id number] [place] [address] 05502- 8207 Oct, Osteoarthritis, unspecified osteoarthritis type, unspecified site M19.90 ; Type 2 diabetes mellitus with diabetic neuropathy E11.40 ; Impotence N52.9 ; Mixed hyperlipidemia E78.2 ; Hyperlipidemia E78.5 ; Essential hypertension I10 and Plantar wart B07.0 [place] [id number] [place] [address] 62381- 6975 Sep, [place] [id number] [place] [address] 70877- 0810 August, Abnormal thyroid blood test R94.6 [facility] [facility] [id number] [place] [address] 53893- 9152 August, Dental examination Z01.20 [facility] [id number] [place] [address] 00186- 2584 August, Type 2 diabetes mellitus with diabetic neuropathy E11.40 ; Non compliance w medication regimen Z91.14 ; Impotence N52.9 ; Mixed hyperlipidemia E78.2 ; Abscessed tooth K04.7 and Shoulder pain, left M25.512 [place] [facility] [id number] [place] [address] 62307- 5364 May, Type 2 diabetes mellitus with diabetic neuropathy E11.40 ; Non compliance w medication regimen Z91.14 ; Non compliance with medical treatment Z91.19 ; Shoulder pain, left M25.512 ; General medical exam Z00.00 ; Impotence N52.9 and Hyperlipidemia E78.5 [place] [id number] [place] [address] 54635- 5136 Jan, Type 2 diabetes mellitus with diabetic neuropathy E11.40 ; Noncompliance w/medication treatment due to intermit use of medication Z91.14 and Impotence N52.9 [facility] [facility] [id number] [place] [address] 26682- 7842 Jan, [place] [address] 27586- 9359 Dec, [place] [id number] [place] [address] 59338- 8938 Nov, [place] [id number] [place] [address] 06418- 3355 Nov, [place] [id number] [place] [address] 16645- 2660 Nov, [place] [address] 95636- 7048 Nov, Diabetes with neurological manifestations, type II or unspecified type, not stated as uncontrolled 250.60 ; Hyperlipidemia 272.4 ; Allergic rhinitis, cause unspecified 477.9 and Depression 311 [place] [id number] [place] [address] 39927- 6262 Sep, [facility] [address] [id number] [place] [address]- 2782 Sep, [facility] [address] [id number] [place] [address]- 9144 Sep, [facility] [address] [facility] [id number] [place] [address]- 1896 Sep, Depression 311 and Diabetes type 2, uncontrolled 250.02 [facility] [address] [id number] [place] [address]- 5340 August, [facility] [address] [id number] [place] [address], [place] [address]- 7595 Jul, [facility] [address] [id number] [place] [address]- 9993 Jul, [facility] [address] [id number] [place] [address]- 7694 Apr, [facility] [address] [id number] [place] [address]- 5288 Apr, [facility] [address] [id number] [place] [address]- 9693 Apr, [facility] [address] [facility] [id number] [place] [address]- 3454 Apr, [facility] [address] [id number] [place] [address]- 4181 Jan, [facility] [address] [id number] [place] [address]- 4571 Jan, [facility] [address] [id number] [place] [address]- 4536 Nov, [facility] [address] [id number] [place] [address]- 3325 Nov, [facility] [address] [id number] [place] [address]- 0841 Nov, [facility] [place] [facility] [address] [id number] [place] [address]- 8171 Nov, [facility] [place] [facility] [address] [id number] [place] [address]- 3647 Nov, [facility] [place] [facility] [address] [id number] [place] [address]- 6981 Nov, [facility] [place] [facility] [address] [id number] [place] [address]- 5638 Nov, [facility] [place] [facility] [address] [id number] [place] [address]- 3849 Nov, [facility] [place] [facility] [address] [id number] [place] [address]- 6670 August, [facility] [place] [facility] [address] [id number] [place] [address]- 1903 August, [facility] [place] [facility] [address] [id number] [place] [address]- 6532 August, [facility] [place] [facility] [address] [id number] [place] [address]- 5823 August, [facility] [place] [facility] [address] [id number] [place] [address]- 7405 August, [facility] [place] [facility] [address] [id number] [place] [address]- 7019 May, [facility] [place] [facility] [address] [id number] [place] [address]- 8631 May, [facility] [place] [facility] [address] [id number] [place] [address]- 0478 May, [facility] [place] [facility] [address] [id number] [place] [address]- 9069 May, [facility] [place] [facility] [address] [id number] [place] [address]- 0837 Apr, [facility] [place] [facility] [address] [id number] [address]- 2796 Apr, [facility] [place] [facility] [address] [id number] [place] [address]- 7861 Jan, [facility] [place] [facility] [address] [id number] [place] [address]- 3887 Jan, [facility] [place] [facility] [address] [id number] [place] [address]- 6549 Jan, [facility] [place] [facility] [address] [id number] [place] [address]- 7882 Jan, [facility] [place] [facility] [address] [id number] [place] [address]- 0032 Jan, [facility] [place] [facility] [address] [id number] [place] [address]- 7915 30 Dec, 2012 [facility] [place] [facility] [address] [id number] [place] [address]- 1122 30 Dec, 2012 [facility] [place] [facility] [address] [id number] [place] [address]- 6062 25 Dec, 2012 [facility] [place] [facility] [address] [id number] [place] [address]- 4026 Dec, [facility] [place] [facility] [address] [facility] [id number] [place] [address]- 9727 Dec, [facility] [place] [facility] [address] [id number] [place] [address]- 4103 30 Nov, 2012 [facility] [place] [facility] [address] [id number], [place] [address]- 0571 Nov, [facility] [place] [facility] [address] [id number] [place] [address]- 3271 Nov, [facility] [place] [facility] [address] [facility] [id number] [place] [address]- 2540 Nov, [facility] [place] [facility] [address] [facility] [id number] [place] [address]- 4391 16 Nov, 2012 [facility] [place] [facility] [address] [facility] [id number] [place] [address]- 4207 Nov, IMMUNIZATIONS No Known Immunizations SOCIAL HISTORY Never Assessed REASON FOR VISIT Medication refill request PLAN OF CARE VITAL SIGNS MEDICATIONS Unknown Medications RESULTS No Results PROCEDURES No Known procedures INSTRUCTIONS MEDICATIONS ADMINISTERED No Known Medications MEDICAL (GENERAL) HISTORY Type Description Date Medical History DM Medical History Depression Medical History Diabetic Neuropathy Medical History Allergies Medical History Porokeratosis Medical History Plantar wart Medical History 05/2017- Negative exercise stress test Dr Perdomo Hospitalization History [facility]- dx'd w/ DM 2008 Hospitalization History WENT TO ER FOR COLD S/S 09/07/14 Hospitalization History HTN, went to ER May 18, 2017
--- OUTSIDE RECORDS SUMMARY | 2018-01-12 16:04 | XMS REPORT ---
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 Active Problem Essential hypertension I10 Active 53947981 Problem Acute idiopathic gout involving toe of right foot M10.071 Active 35953201 Problem Major depressive disorder, single episode, unspecified F32.9 Active 54379535 Problem Anxiety F41.9 Active 66160026 Problem Neuropathy G62.9 Active 914387929 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 [id number] [place] [address] [id number] Nov, Dental caries K02.9 [facility] [id number] [place] [address] [id number] Nov, Dental examination Z01.20 [facility] [id number] [place] [address] [id number] Oct, Acute oral pain K13.79 [facility] [id number] [place] [address] 21932- 0372 Oct, [place] [address] [address] Oct, [place] [address] [place] [address]6699- 4588 Oct, Epigastric abdominal pain R10.13 ; Type 2 diabetes mellitus with diabetic neuropathy E11.40 ; Mixed hyperlipidemia E78.2 ; Essential hypertension I10 ; Major depressive disorder, single episode, unspecified F32.9 ; Neuropathy G62.9 and Non compliance w medication regimen Z91.14 [facility] [id number] [place] [address] Oct, [facility] [id number] [place] [address]92 [address]1057 August, [place] [id number] [place] [address] 36863- 8255 August, Type 2 diabetes mellitus with diabetic neuropathy E11.40 ; Mixed hyperlipidemia E78.2 ; Essential hypertension I10 ; Acute idiopathic gout involving toe of right foot M10.071 ; Neuropathy G62.9 and Major depressive disorder, single episode, unspecified F32.9 [place] [address] [place] [address] 59913- 5349 August, [place] [address] [place] [address] 49080- 4095 Jul, Essential hypertension I10 ; Neuropathy G62.9 and Musculoskeletal pain M79.1 [place] [address], [place] [address] May, [place] [id number] [place] [address] 00693- 2812 09 May, 2017 Type 2 diabetes mellitus with diabetic neuropathy E11.40 ; longterm (current) use of insulin Z79.4 ; Essential hypertension I10 ; Mixed hyperlipidemia E78.2 ; Non compliance w medication regimen Z91.14 ; Non compliance with medical treatment Z91.19 ; Injury of right thumb, initial encounter S69.91XA and Major depressive disorder, single episode, unspecified F32.9 [place] [id number] [place] [address] 30154- 3336 May, [facility] [id number] [place] [address] 08184- 9746 May, [place] [address] [address] May, Chest pain, unspecified type R07.9 and Type 2 diabetes mellitus with diabetic neuropathy E11.40 [place] [address] [address]15- 3553 May, [place] [address] 75461- 8595 Feb, Abnormal CBC R79.89 [place] [address] 93975- 6260 Feb, [place] [address] 04871- 7615 Jan, Type 2 diabetes mellitus with diabetic neuropathy E11.40 ; Mixed hyperlipidemia E78.2 ; Neuropathy G62.9 ; Osteoarthritis, unspecified osteoarthritis type, unspecified site M19.90 ; Acute nonseasonal allergic rhinitis due to pollen J30.1 ; Impotence N52.9 ; Anxiety F41.9 ; Essential hypertension I10 and Non compliance w medication regimen Z91.14 [place] [id number] [place] [address] 58837- 9239 Oct, [facility] [id number] [place] [address] 96705 -4115 Sep, Type 2 diabetes mellitus with diabetic neuropathy E11.40 ; Non compliance w medication regimen Z91.14 ; Non compliance with medical treatment Z91.19 and Foot pain, left M79.672 [place] [id number] [place] [address] 08775- 3540 Jul, [place] [address], [place] [address] Jul, [facility] [id number] [place] [address] 54398- 0731 May, Anxiety F41.9 ; Type 2 diabetes mellitus with diabetic neuropathy E11.40 ; Non compliance w medication regimen Z91.14 ; Mixed hyperlipidemia E78.2 and Essential hypertension I10 [place] [id number] [place] [address] 57033- 5435 Apr, Osteoarthritis, unspecified osteoarthritis type, unspecified site M19.90 [place] [id number] [place] [address] 87126- 7849 Apr, [place] [id number] [place] [address] 70397- 1743 Apr, Type 2 diabetes mellitus with diabetic neuropathy E11.40 ; Non compliance w medication regimen Z91.14 ; Mixed hyperlipidemia E78.2 ; Essential hypertension I10 ; Plantar wart B07.0 and Anxiety F41.9 [place] [id number] [place] [address] 42696- 6868 Apr, [place] [id number] [place] [address] 44337- 5131 Apr, [place] [id number] [place] [address] 41783- 5984 Mar, Osteoarthritis, unspecified osteoarthritis type, unspecified site M19.90 and Impotence N52.9 [place] [address] [place] [address] 37466- 2880 Mar, [place] [id number] [place] [address] 74409- 9467 Mar, Type 2 diabetes mellitus with diabetic neuropathy E11.40 ; Anxiety F41.9 and Intractable vomiting with nausea, unspecified vomiting type R11.2 [place] [id number] [place] [address] 04142- 7543 Mar, Type 2 diabetes mellitus with diabetic neuropathy E11.40 and Intractable vomiting with nausea, unspecified vomiting type R11.2 [place] [id number] [place] [address] 41168- 8478 Feb, Porokeratosis Q82.8 and Type 2 diabetes mellitus with diabetic neuropathy E11.40 [place] [id number] [place] [address] 29375- 7118 Jan, [place] [address] 66364- 1761 Dec, [place] [id number] [place] [address] 95746- 5661 Dec, Type 2 diabetes mellitus with diabetic neuropathy E11.40 ; Non compliance w medication regimen Z91.14 ; Impotence N52.9 ; Essential hypertension I10 ; Hyperlipidemia E78.5 ; Neuropathy G62.9 ; 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 and Plantar wart B07.0 [place] [id number] [place] [address] 56915- 6345 Dec, [place] [id number] [place] [address] 96833- 2118 Nov, Dental examination Z01.20 [place] [id number] [place] [address] 85970- 4239 Oct, Osteoarthritis, unspecified osteoarthritis type, unspecified site M19.90 ; Type 2 diabetes mellitus with diabetic neuropathy E11.40 ; Impotence N52.9 ; Mixed hyperlipidemia E78.2 ; Hyperlipidemia E78.5 ; Essential hypertension I10 and Plantar wart B07.0 [place] [id number] [place] [address] 05780- 3130 Sep, [place] [id number] [place] [address] 58919- 8992 August, Abnormal thyroid blood test R94.6 [place] [id number] [place] [address] 03580- 1934 August, Dental examination Z01.20 [place] [id number] [place] [address] 15951- 3429 August, Type 2 diabetes mellitus with diabetic neuropathy E11.40 ; Non compliance w medication regimen Z91.14 ; Impotence N52.9 ; Mixed hyperlipidemia E78.2 ; Abscessed tooth K04.7 and Shoulder pain, left M25.512 [place] [address] [address]62- 5420 12 May, 2015 Type 2 diabetes mellitus with diabetic neuropathy E11.40 ; Non compliance w medication regimen Z91.14 ; Non compliance with medical treatment Z91.19 ; Shoulder pain, left M25.512 ; General medical exam Z00.00 ; Impotence N52.9 and Hyperlipidemia E78.5 [place] [id number] [place] [address] 13425- 2591 Jan, Type 2 diabetes mellitus with diabetic neuropathy E11.40 ; Noncompliance w/medication treatment due to intermit use of medication Z91.14 and Impotence N52.9 [place] [id number] [place] [address] 80093- 8819 Jan, [place] [address] 76721- 4892 Dec, [place] [id number] [place] [address] 19878- 0655 Nov, [place] [id number] [place] [address] 32755- 7653 Nov, [place] [id number] [place] [address] 63062- 5217 Nov, [place] [address] 20769- 1403 Nov, Diabetes with neurological manifestations, type II or unspecified type, not stated as uncontrolled 250.60 ; Hyperlipidemia 272.4 ; Allergic rhinitis, cause unspecified 477.9 and Depression 311 [place] [address] [place] [address] Sep, [facility] [address] [id number] [place] [address]- 4605 Sep, [facility] [address] [id number] [place] [address]- 1855 Sep, [facility] [address] [id number] [place] [address]- 2023 Sep, Depression 311 and Diabetes type 2, uncontrolled 250.02 [facility] [address] [id number] [place] [address]- 9000 August, [facility] [id number] [place] [address], [place] [address]- 9568 Jul, [facility] [address] [facility] [id number] [place] [address]- 5675 Jul, [facility] [address] [id number] [place] [address]- 4412 Apr, [facility] [address] [id number] [place] [address]- 2960 Apr, [facility] [address] [facility] [id number] [place] [address]- 3628 Apr, [facility] [address] [facility] [id number] [place] [address]- 6015 Apr, [facility] [address] [id number], [place] [address]- 7075 Jan, [facility] [address] [id number] [place] [address]- 7400 Jan, [facility] [address] [id number] [place] [address]- 7255 Nov, [facility] [address] [id number] [place] [address]- 2268 Nov, [facility] [address] [id number], [place] [address]- 4784 Nov, [facility] [place] [facility] [address] [id number] [place] [address]- 9670 Nov, [facility] [place] [facility] [address] [id number] [place] [address]- 9543 Nov, [facility] [place] [facility] [address] [id number] [place] [address]- 2998 Nov, [facility] [place] [facility] [address] [id number] [place] [address]- 4762 Nov, [facility] [place] [facility] [address] [id number] [place] [address]- 4882 Nov, [facility] [place] [facility] [address] [id number] [place] [address]- 7755 August, [facility] [place] [facility] [address] [id number] [place] [address]- 5704 August, [facility] [place] [facility] [address] [id number] [place] [address]- 9557 August, [facility] [place] [facility] [address] [id number] [place] [address]- 5805 August, [facility] [place] [facility] [address] [id number] [place] [address]- 8729 August, [facility] [place] [facility] [address] [id number] [place] [address]- 0182 May, [facility] [place] [facility] [address] [id number] [place] [address]- 7466 May, [facility] [place] [facility] [address] [id number] [place] [address]- 6890 May, [facility] [place] [facility] [address] [id number] [place] [address]- 7487 May, [facility] [place] [facility] [address] [id number] [place] [address]- 6527 Apr, [facility] [place] [facility] [address] [id number] [place] [address]- 5678 Apr, [facility] [place] [facility] [address] [id number] [place] [address]- 8837 Jan, [facility] [place] [facility] [address] [id number] [place] [address]- 6346 Jan, [facility] [place] [facility] [address] [id number] [place] [address]- 5526 Jan, [facility] [place] [facility] [address] [id number] [place] [address]- 6766 Jan, [facility] [place] [facility] [address] [id number] [place] [address]- 3552 Jan, [facility] [place] [facility] [address] [id number] [place] [address]- 7958 Dec, [facility] [place] [facility] [address] [id number] [place] [address]- 5910 30 Dec, 2012 [facility] [place] [facility] [address] [id number] [place] [address]- 0884 Dec, [facility] [place] [facility] [address] [id number] [place] [address]- 0608 Dec, [facility] [place] [facility] [address] [id number] [place] [address]- 8180 Dec, [facility] [place] [facility] [address] [id number] [place] [address]- 3221 Nov, [facility] [place] [facility] [address] [id number] [place] [address]- 2548 Nov, [facility] [place] [facility] [address] [id number] [place] [address]- 2288 Nov, [facility] [place] [facility] [address] [id number] [place] [address]- 2561 Nov, [facility] [place] [facility] [address] [id number] [place] [address]- 5557 Nov, [facility] [address] [facility] [id number] [place] [address]- 7126 Nov, IMMUNIZATIONS No Known Immunizations SOCIAL HISTORY Never Assessed REASON FOR VISIT Dental Pain and Swelling PLAN OF CARE VITAL SIGNS MEDICATIONS Medication Instructions Dosage Frequency Start Date End Date Duration Status Amoxicillin 500 MG Orally every 8 hrs 1 capsule 8h Oct, Nov, 10 day(s) Active RESULTS No Results PROCEDURES No Known procedures INSTRUCTIONS MEDICATIONS ADMINISTERED No Known Medications MEDICAL (GENERAL) HISTORY Type Description Date Medical History DM Medical History Depression Medical History Diabetic Neuropathy Medical History Allergies Medical History Porokeratosis Medical History Plantar wart Medical History 05/2017- Negative exercise stress test Dr Perdomo Hospitalization History [facility]- dx'd w/ DM 2008 Hospitalization History WENT TO ER FOR COLD S/S 09/07/14 Hospitalization History HTN, went to ER May 18, 2017
--- OUTSIDE RECORDS SUMMARY | 2018-01-12 16:04 | XMS REPORT ---
Author Author EVA SIMON [facility] Address [address] [place] [address] Phone Unavailable Care Team Providers Care Manager Gift Name Role Phone EVA SIMON Unavailable Unavailable PROBLEMS Type Condition ICD9-CM Code DUA68-WT Code Onset Dates Condition Status SNOMED Code Problem Osteoarthritis, unspecified osteoarthritis type, unspecified site M19.90 Active 777264373 Problem 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 Active Problem Essential hypertension I10 Active 71430273 Problem Acute idiopathic gout involving toe of right foot M10.071 Active 53354852 Problem Major depressive disorder, single episode, unspecified F32.9 Active 36043688 Problem Anxiety F41.9 Active 81399668 Problem Neuropathy G62.9 Active 127883637 Problem [employer]orer [employer] (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) use of insulin Z79.4 Active 729887167 Problem Acute nonseasonal allergic rhinitis due to pollen J30.1 Active 43915629 Problem Non compliance w medication regimen Z91.14 Active 891233636 Problem Non compliance with medical treatment Z91.19 Active 3024955 Problem Abnormal CBC R79.89 Active 359046389 Problem Impotence N52.9 Active 171194149 Problem Type 2 diabetes mellitus with diabetic neuropathy E11.40 Active 4369933098476 Problem Mixed hyperlipidemia E78.2 Active 280528618 ALLERGIES No Known Allergies ENCOUNTERS Encounter Location Date Diagnosis [facility] [id number] [id number] Nov, Dental caries K02.9 [facility] [id number] [id number] Nov, Dental examination Z01.20 [facility] [id number] [id number] Oct, Acute oral pain K13.79 [facility] [id number] [address] Oct, [facility] [id number] [place] [address] 97403- 1141 Oct, [place] [id number] [place] [address] 42799- 8590 Oct, Epigastric abdominal pain R10.13 ; Type 2 diabetes mellitus with diabetic neuropathy E11.40 ; Mixed hyperlipidemia E78.2 ; Essential hypertension I10 ; Major depressive disorder, single episode, unspecified F32.9 ; Neuropathy G62.9 and Non compliance w medication regimen Z91.14 [facility] [id number] [place] [address] 46533 -2548 Oct, [facility] [id number] [place] [address] 98768 -2431 August, [place] [id number] [place] [address] 84606- 1767 August, Type 2 diabetes mellitus with diabetic neuropathy E11.40 ; Mixed hyperlipidemia E78.2 ; Essential hypertension I10 ; Acute idiopathic gout involving toe of right foot M10.071 ; Neuropathy G62.9 and Major depressive disorder, single episode, unspecified F32.9 [place] [id number] [place] [address] 52767- 0993 August, [place] [id number] [place] [address] 28867- 1089 Jul, Essential hypertension I10 ; Neuropathy G62.9 and Musculoskeletal pain M79.1 [place] [id number] [place] [address] 43269- 7567 14 May, 2017 [place] [id number] [place] [address] 38377- 0874 09 May, 2017 Type 2 diabetes mellitus with diabetic neuropathy E11.40 ; [employer] (current) use of insulin Z79.4 ; Essential hypertension I10 ; Mixed hyperlipidemia E78.2 ; Non compliance w medication regimen Z91.14 ; Non compliance with medical treatment Z91.19 ; Injury of right thumb, initial encounter S69.91XA and Major depressive disorder, single episode, unspecified F32.9 [place] [id number] [place] [address] 66329- 9587 08 May, 2017 [facility] [id number] [place] [address] 03582- 7048 May, [facility] [id number] [place] [address] 49304- 1100 May, Chest pain, unspecified type R07.9 and Type 2 diabetes mellitus with diabetic neuropathy E11.40 [place] [id number] [place] [address] 10841- 9508 May, [place] [address] [address]71- 4151 Feb, Abnormal CBC R79.89 [place] [address] 17123- 3656 Feb, [place] [address] 46952- 5089 Jan, Type 2 diabetes mellitus with diabetic neuropathy E11.40 ; Mixed hyperlipidemia E78.2 ; Neuropathy G62.9 ; Osteoarthritis, unspecified osteoarthritis type, unspecified site M19.90 ; Acute nonseasonal allergic rhinitis due to pollen J30.1 ; Impotence N52.9 ; Anxiety F41.9 ; Essential hypertension I10 and Non compliance w medication regimen Z91.14 [place] [id number] [place] [address] 99176- 8456 Oct, [facility] [id number] [place] [address] 50036 -4850 Sep, Type 2 diabetes mellitus with diabetic neuropathy E11.40 ; Non compliance w medication regimen Z91.14 ; Non compliance with medical treatment Z91.19 and Foot pain, left M79.672 [facility] [id number] [place] [address] 09163- 5659 Jul, [facility] [id number] [place] [address] 67203- 8164 Jul, [facility] [address] [address] 6[address] May, Anxiety F41.9 ; Type 2 diabetes mellitus with diabetic neuropathy E11.40 ; Non compliance w medication regimen Z91.14 ; Mixed hyperlipidemia E78.2 and Essential hypertension I10 [facility] [id number] [place] [address] 93209- 9925 Apr, Osteoarthritis, unspecified osteoarthritis type, unspecified site M19.90 [facility] [id number] [place] [address] 28513- 5166 Apr, [place] [id number] [place] [address] 15638- 3878 Apr, Type 2 diabetes mellitus with diabetic neuropathy E11.40 ; Non compliance w medication regimen Z91.14 ; Mixed hyperlipidemia E78.2 ; Essential hypertension I10 ; Plantar wart B07.[address] [facility] [id number] [place] [address] 74865- 7775 Apr, [facility] [id number] [place] [address] 82771- 5001 Apr, [facility] [id number] [place] [address] 56805- 8093 Mar, Osteoarthritis, unspecified osteoarthritis type, unspecified site M19.[address] [facility] [address] [place] [address] 29347- 1348 Mar, [facility] [id number] [place] [address] 11163- 2944 Mar, Type 2 diabetes mellitus with diabetic neuropathy E11.40 ; Anxiety F41.9 and Intractable vomiting with nausea, unspecified vomiting type R11.2 [facility] [address] [place] [address] 37374- 4808 Mar, Type 2 diabetes mellitus with diabetic neuropathy E11.40 and Intractable vomiting with nausea, unspecified vomiting type R11.2 [place] [id number] [place] [address] 92544- 2428 Feb, Porokeratosis Q82.8 and Type 2 diabetes mellitus with diabetic neuropathy E11.40 [place] [id number] [place] [address] 36570- 0218 Jan, [place] [id number] [place] [address] 44728- 8860 Dec, [place] [id number] [place] [address] 42948- 3656 Dec, Type 2 diabetes mellitus with diabetic neuropathy E11.40 ; Non compliance w medication regimen Z91.14 ; Impotence N52.9 ; Essential hypertension I10 ; Hyperlipidemia E78.5 ; Neuropathy G62.9 ; 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 and Plantar wart B07.0 [place] [address] 11629- 8479 Dec, [place] [id number] [place] [address] 42865- 5839 Nov, Dental examination Z01.20 [place] [id number] [place] [address] 73170- 5215 Oct, Osteoarthritis, unspecified osteoarthritis type, unspecified site M19.90 ; Type 2 diabetes mellitus with diabetic neuropathy E11.40 ; Impotence N52.9 ; Mixed hyperlipidemia E78.2 ; Hyperlipidemia E78.5 ; Essential hypertension I10 and Plantar wart B07.0 [place] [id number] [place] [address] 59027- 3541 Sep, [place] [address] 31597- 1585 August, Abnormal thyroid blood test R94.6 [place] [id number] [place] [address] 65623- 1022 August, Dental examination Z01.20 [place] [address] 56196- 0347 August, Type 2 diabetes mellitus with diabetic neuropathy E11.40 ; Non compliance w medication regimen Z91.14 ; Impotence N52.9 ; Mixed hyperlipidemia E78.2 ; Abscessed tooth K04.7 and Shoulder pain, left M25.512 [place] [id number] [place] [address] 45723- 8991 May, Type 2 diabetes mellitus with diabetic neuropathy E11.40 ; Non compliance w medication regimen Z91.14 ; Non compliance with medical treatment Z91.19 ; Shoulder pain, left M25.512 ; General medical exam Z00.00 ; Impotence N52.9 and Hyperlipidemia E78.5 [place] [id number] [place] [address] 00645- 3468 Jan, Type 2 diabetes mellitus with diabetic neuropathy E11.40 ; Noncompliance w/medication treatment due to intermit use of medication Z91.14 and Impotence N52.9 [place] [id number] [place] [address] 00872- 8964 Jan, [place] [id number] [place] [address] 00725- 4296 Dec, [place] [id number] [place] [address] 20572- 9960 Nov, [place] [id number] [place] [address] 34377- 8695 Nov, [place] [address] 34952- 2899 Nov, [place] [id number] [place] [address] 37281- 2380 Nov, Diabetes with neurological manifestations, type II or unspecified type, not stated as uncontrolled 250.60 ; Hyperlipidemia 272.4 ; Allergic rhinitis, cause unspecified 477.9 and Depression 311 [address] [id number] [place] [address] 99081- 9595 Sep, [place] [address] [id number] [place] [address]- 7000 Sep, [facility] [address] [id number] [place] [address]- 0550 Sep, [facility] [address] [id number] [place] [address]- 9024 Sep, Depression 311 and Diabetes type 2, uncontrolled 250.02 [facility] [address] [id number] [place] [address]- 7567 August, [facility] [address] [id number] [place] [address]- 2904 Jul, [facility] [address] [id number] [place] [address]- 5305 Jul, [facility] [address] [facility] [id number] [place] [address]- 4010 Apr, [facility] [address] [id number] [address]- 4663 Apr, [facility] [address] [id number] [place] [address]- 6701 Apr, [facility] [address] [facility] [id number] [place] [address]- 4462 Apr, [facility] [address] [id number] [place] [address]- 8075 Jan, [facility] [place] [facility] [address] [id number] [place] [address]- 0478 Jan, [facility] [place] [facility] [address] [id number] [place] [address]- 2597 Nov, [facility] [place] [facility] [address] [id number] [place] [address]- 9258 Nov, [facility] [place] [facility] [address] [facility] [id number] [place] [address]- 6598 Nov, [facility] [address] [id number] [place] [address]- 2617 Nov, [facility] [place] [facility] [address] [id number] [place] [address]- 6461 Nov, [facility] [place] [facility] [address] [id number] [place] [address]- 0074 Nov, [facility] [place] [facility] [address] [id number] [place] [address]- 4238 Nov, [facility] [place] [facility] [address] [id number] [place] [address]- 7544 Nov, [facility] [place] [facility] [address] [id number] [place] [address]- 6499 August, [facility] [place] [facility] [address] [id number] [place] [address]- 8741 August, [facility] [place] [facility] [address] [id number] [place] [address]- 1610 August, [facility] [place] [facility] [address] [id number] [place] [address]- 9716 August, [facility] [place] [facility] [address] [id number] [place] [address]- 8575 August, [facility] [place] [facility] [address] [id number] [place] [address]- 0964 May, [facility] [place] [facility] [address] [id number] [place] [address]- 0175 May, [facility] [place] [facility] [address] [id number] [place] [address]- 8176 May, [facility] [place] [facility] [address] [id number] [place] [address]- 5544 May, [facility] [place] [facility] [address] [id number] [place] [address]- 0807 Apr, [facility] [place] [facility] [address] [id number] [place] [address]- 1502 Apr, [facility] [place] [facility] [address] [id number] [place] [address]- 5591 Jan, [facility] [place] [facility] [address] [id number] [place] [address]- 8522 Jan, [facility] [place] [facility] [address] [id number] [place] [address]- 6565 Jan, [facility] [place] [facility] [address] [id number] [place] [address]- 0435 Jan, [facility] [place] [facility] [address] [id number] [place] [address]- 4517 Jan, [facility] [place] [facility] [address] [id number] [place] [address]- 3185 30 Dec, 2012 [facility] [place] [facility] [address] [id number] [place] [address]- 6289 30 Dec, 2012 [facility] [place] [facility] [address] [id number] [place] [address]- 4505 Dec, [facility] [place] [facility] [address] [id number] [place] [address]- 2435 Dec, [facility] [place] [facility] [address] [id number] [place] [address]- 4029 Dec, [facility] [place] [facility] [address] [id number] [address]- 5616 Nov, [facility] [place] [facility] [address] [id number] [place] [address]- 3265 Nov, [facility] [place] [facility] [address] [id number] [place] [address]- 6733 Nov, [facility] [place] [facility] [address] [id number] [place] [address]- 0763 Nov, [facility] [place] [facility] [address] [id number] [place] [address]- 4604 Nov, [facility] [place] [facility] [address] [id number] [place] [address]90 Nov, IMMUNIZATIONS No Known Immunizations SOCIAL HISTORY Never Assessed REASON FOR VISIT swelling/tooth pain PLAN OF CARE Activity Details Follow Up donita Reason:dental assessment VITAL SIGNS MEDICATIONS Medication Instructions Dosage Frequency Start Date End Date Duration Status GlipiZIDE XL 10 mg Orally Once a day 1 tablet 24h Oct, 90 days Active Sertraline HCl 50 mg Orally Once a day 1 tablet 24h May, 30 days Active Ondansetron 4 MG Orally every 4 hrs 1 tablet on the tongue and allow to dissolve as needed 4h Oct, 07 days Active Gabapentin 300 MG Orally Once a day 1 capsule before bedtime 24h Jul, 90 days Active Glucocard Expression Test 1 kit subcutaneously 3 times a day test 3 times per day 8h May, 12 months Active Simvastatin 20 mg Orally Once a day at bedtime 1 tablet by Oral route 1 time per day Jan, 90 days Active Cozaar 25 MG Orally Once a day 0.5 tablet 24h Jan, 90 days Active Pantoprazole Sodium 40 mg Orally Once a day 1 tablet 24h Oct, 30 day(s) Active Levemir Flexpen 100 UNIT/ML Subcutaneous--per insulin sliding scale protocol 2 times a day 30 units 12h Active MetFORMIN HCl ER (MOD) 500 mg Orally 2 times a day with meal 2 tablets twice day with meals May, 30 days Active Pen [place] 32G X 4 MM 1 12h 120 days Active Amoxicillin 500 MG Orally every 8 hrs 1 capsule 8h Oct, Nov, 10 day(s) Active RESULTS No Results PROCEDURES Procedure Date Ordered Result Body Site SCREENING OF A PATIENT November 09, 2017 Billing Notes on claim November 09, 2017 INSTRUCTIONS MEDICATIONS ADMINISTERED No Known Medications MEDICAL (GENERAL) HISTORY Type Description Date Medical History DM Medical History Depression Medical History Diabetic Neuropathy Medical History Allergies Medical History Porokeratosis Medical History Plantar wart Medical History 05/2017- Negative exercise stress test Dr Perdomo Hospitalization History [facility]- dx'd w/ DM 2008 Hospitalization History WENT TO ER FOR COLD S/S 09/07/14 Hospitalization History HTN, went to ER May 18, 2017
--- OUTSIDE RECORDS SUMMARY | 2018-01-12 16:05 | XMS REPORT ---
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 Active Problem Essential hypertension I10 Active 33697173 Problem Acute idiopathic gout involving toe of right foot M10.071 Active 70826385 Problem Major depressive disorder, single episode, unspecified F32.9 Active 70520348 Problem Anxiety F41.9 Active 31312841 Problem Neuropathy G62.9 Active 018306404 Problem 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 Active 716417925 Problem Acute nonseasonal allergic rhinitis due to pollen J30.1 Active 55920028 Problem Non compliance w medication regimen Z91.14 Active 301634320 Problem Non compliance with medical treatment Z91.19 Active 1028513 Problem Abnormal CBC R79.89 Active 827448285 Problem Impotence N52.9 Active 974563739 Problem Type 2 diabetes mellitus with diabetic neuropathy E11.40 Active 2270633264897 Problem Mixed hyperlipidemia E78.2 Active 027299395 ALLERGIES No Information ENCOUNTERS Encounter Location Date Diagnosis [facility] [id number] [place] [address] [id number] Nov, Dental caries K02.9 [facility] [id number] [place] [address] [id number] Nov, Dental examination Z01.20 [facility] [id number] [place] [address] [id number] Oct, Acute oral pain K13.79 [facility] [id number] [place] [address] 29971- 2793 Oct, [place] [id number] [place] [address] 60852- 1164 Oct, [place] [id number] [place] [address] 23004- 3974 Oct, Epigastric abdominal pain R10.13 ; Type 2 diabetes mellitus with diabetic neuropathy E11.40 ; Mixed hyperlipidemia E78.2 ; Essential hypertension I10 ; Major depressive disorder, single episode, unspecified F32.9 ; Neuropathy G62.9 and Non compliance w medication regimen Z91.14 [facility] [id number] [place] [address] 03879 -7382 Oct, [facility] [id number] [place] [address] 40299 -2359 August, [facility] [facility] [id number] [place] [address] 57495- 0957 August, Type 2 diabetes mellitus with diabetic neuropathy E11.40 ; Mixed hyperlipidemia E78.2 ; Essential hypertension I10 ; Acute idiopathic gout involving toe of right foot M10.071 ; Neuropathy G62.9 and Major depressive disorder, single episode, unspecified F32.9 [place] [facility] [id number] [place] [address] 91968- 3782 August, [place] [facility] [id number] [place] [address] 80038- 5842 Jul, Essential hypertension I10 ; Neuropathy G62.9 and Musculoskeletal pain M79.1 [place] [facility] [id number] [place] [address] 53211- 6256 14 May, 2017 [place] [id number] [place] [address] 94914- 2559 09 May, 2017 Type 2 diabetes mellitus with diabetic neuropathy E11.40 ; halfway (current) use of insulin Z79.4 ; Essential hypertension I10 ; Mixed hyperlipidemia E78.2 ; Non compliance w medication regimen Z91.14 ; Non compliance with medical treatment Z91.19 ; Injury of right thumb, initial encounter S69.91XA and Major depressive disorder, single episode, unspecified F32.9 [facility] [id number] [address] May, [facility] [id number] [place] [address] 48123- 8884 May, [facility] [id number] [place] [address] 68224- 4299 May, Chest pain, unspecified type R07.9 and Type 2 diabetes mellitus with diabetic neuropathy E11.40 [place] [facility] [id number] [place] [address] 85459- 1412 May, [facility] [facility] [id number] [place] [address] 73486- 6014 Feb, Abnormal CBC R79.89 [facility] [facility] [id number] [place] [address] 29558- 5704 Feb, [facility] [facility] [id number] [place] [address] 26238- 1525 Jan, Type 2 diabetes mellitus with diabetic neuropathy E11.40 ; Mixed hyperlipidemia E78.2 ; Neuropathy G62.9 ; Osteoarthritis, unspecified osteoarthritis type, unspecified site M19.90 ; Acute nonseasonal allergic rhinitis due to pollen J30.1 ; Impotence N52.9 ; Anxiety F41.9 ; Essential hypertension I10 and Non compliance w medication regimen Z91.14 [facility] [id number] [place] [address] 60787- 2124 Oct, [facility] [address] [place] [address] 75154 -4992 Sep, Type 2 diabetes mellitus with diabetic neuropathy E11.40 ; Non compliance w medication regimen Z91.14 ; Non compliance with medical treatment Z91.19 and Foot pain, left M79.672 [facility] [address] [place] [address] 14623- 8476 Jul, [facility] [id number] [place] [address] 48235- 5712 Jul, [facility] [id number] [place] [address] 01874- 9780 May, Anxiety F41.9 ; Type 2 diabetes mellitus with diabetic neuropathy E11.40 ; Non compliance w medication regimen Z91.14 ; Mixed hyperlipidemia E78.2 and Essential hypertension I10 [place] [id number] [place] [address] 26904- 0519 Apr, Osteoarthritis, unspecified osteoarthritis type, unspecified site M19.90 [place] [id number] [place] [address] 41082- 3575 Apr, [place] [id number] [place] [address] 75212- 1647 Apr, Type 2 diabetes mellitus with diabetic neuropathy E11.40 ; Non compliance w medication regimen Z91.14 ; Mixed hyperlipidemia E78.2 ; Essential hypertension I10 ; Plantar wart B07.0 and Anxiety F41.9 [place] [id number] [place] [address] 19551- 9079 Apr, [place] [id number] [place] [address] 60440- 7648 Apr, [facility] [id number] [place] [address] 72923- 6665 Mar, Osteoarthritis, unspecified osteoarthritis type, unspecified site M19.90 and Impotence N52.9 [facility] [id number] [place] [address] 85742- 6206 Mar, [facility] [id number] [place] [address] 17563- 0101 Mar, Type 2 diabetes mellitus with diabetic neuropathy E11.40 ; Anxiety F41.9 and Intractable vomiting with nausea, unspecified vomiting type R11.2 [facility] [id number] [place] [address] 41840- 7898 Mar, Type 2 diabetes mellitus with diabetic neuropathy E11.40 and Intractable vomiting with nausea, unspecified vomiting type R11.2 [facility] [facility] [id number] [place] [address] 57049- 2334 Feb, Porokeratosis Q82.8 and Type 2 diabetes mellitus with diabetic neuropathy E11.40 [place] [id number] [place] [address] 88161- 6747 Jan, [place] [id number] [place] [address] 07659- 7454 Dec, [place] [id number] [place] [address] 58956- 8577 Dec, Type 2 diabetes mellitus with diabetic neuropathy E11.40 ; Non compliance w medication regimen Z91.14 ; Impotence N52.9 ; Essential hypertension I10 ; Hyperlipidemia E78.5 ; Neuropathy G62.9 ; 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 and Plantar wart B07.0 [place] [id number] [place] [address] 92386- 4142 Dec, [place] [id number] [place] [address] 00064- 5238 Nov, Dental examination Z01.20 [facility] [facility] [id number] [place] [address] 01969- 1316 Oct, Osteoarthritis, unspecified osteoarthritis type, unspecified site M19.90 ; Type 2 diabetes mellitus with diabetic neuropathy E11.40 ; Impotence N52.9 ; Mixed hyperlipidemia E78.2 ; Hyperlipidemia E78.5 ; Essential hypertension I10 and Plantar wart B07.0 [place] [id number] [place] [address] 79302- 4626 Sep, [place] [id number] [place] [address] 24062- 5364 August, Abnormal thyroid blood test R94.6 [place] [facility] [id number] [place] [address] 35134- 9914 August, Dental examination Z01.20 [place] [id number] [place] [address] 69080- 4723 August, Type 2 diabetes mellitus with diabetic neuropathy E11.40 ; Non compliance w medication regimen Z91.14 ; Impotence N52.9 ; Mixed hyperlipidemia E78.2 ; Abscessed tooth K04.7 and Shoulder pain, left M25.512 [place] [id number] [place] [address] 98386- 1235 May, Type 2 diabetes mellitus with diabetic neuropathy E11.40 ; Non compliance w medication regimen Z91.14 ; Non compliance with medical treatment Z91.19 ; Shoulder pain, left M25.512 ; General medical exam Z00.00 ; Impotence N52.9 and Hyperlipidemia E78.5 [place] [id number] [place] [address] 43741- 3274 Jan, Type 2 diabetes mellitus with diabetic neuropathy E11.40 ; Noncompliance w/medication treatment due to intermit use of medication Z91.14 and Impotence N52.9 [place] [id number] [place] [address] 76476- 3394 Jan, [place] [address] 77824- 2334 Dec, [place] [id number] [place] [address] 72383- 4364 Nov, [place] [id number] [place] [address] 44847- 9065 Nov, [place] [id number] [place] [address] 93442- 6858 Nov, [place] [address] 36127- 0015 Nov, Diabetes with neurological manifestations, type II or unspecified type, not stated as uncontrolled 250.60 ; Hyperlipidemia 272.4 ; Allergic rhinitis, cause unspecified 477.9 and Depression 311 [place] [id number] [place] [address] 55843- 5594 Sep, [facility] [address] [id number] [place] [address]- 3591 Sep, [facility] [address] [id number] [place] [address]- 8895 Sep, [facility] [address] [facility] [id number] [place] [address]- 2440 Sep, Depression 311 and Diabetes type 2, uncontrolled 250.02 [facility] [address] [id number] [place] [address]- 1942 August, [facility] [address] [id number] [place] [address], [place] [address]- 5043 Jul, [facility] [address] [id number] [place] [address]- 8597 Jul, [facility] [address] [id number] [place] [address]- 1122 Apr, [facility] [address] [id number] [place] [address]- 1728 Apr, [facility] [address] [id number] [place] [address]- 5309 Apr, [facility] [address] [facility] [id number] [place] [address]- 0143 Apr, [facility] [address] [id number] [place] [address]- 3142 Jan, [facility] [address] [id number] [place] [address]- 0716 Jan, [facility] [address] [id number] [place] [address]- 5507 Nov, [facility] [address] [id number] [place] [address]- 7539 Nov, [facility] [address] [id number] [place] [address]- 5310 Nov, [facility] [place] [facility] [address] [id number] [place] [address]- 2037 Nov, [facility] [place] [facility] [address] [id number] [place] [address]- 2346 Nov, [facility] [place] [facility] [address] [id number] [place] [address]- 0231 Nov, [facility] [place] [facility] [address] [id number] [place] [address]- 9879 Nov, [facility] [place] [facility] [address] [id number] [place] [address]- 7904 Nov, [facility] [place] [facility] [address] [id number] [place] [address]- 5534 August, [facility] [place] [facility] [address] [id number] [place] [address]- 0647 August, [facility] [place] [facility] [address] [id number] [place] [address]- 2241 August, [facility] [place] [facility] [address] [id number] [place] [address]- 3242 August, [facility] [place] [facility] [address] [id number] [place] [address]- 2919 August, [facility] [place] [facility] [address] [id number] [place] [address]- 1477 May, [facility] [place] [facility] [address] [id number] [place] [address]- 5315 May, [facility] [place] [facility] [address] [id number] [place] [address]- 1182 May, [facility] [place] [facility] [address] [id number] [place] [address]- 6896 May, [facility] [place] [facility] [address] [id number] [place] [address]- 9467 Apr, [facility] [place] [facility] [address] [id number] [address]- 5020 Apr, [facility] [place] [facility] [address] [id number] [place] [address]- 1192 Jan, [facility] [place] [facility] [address] [id number] [place] [address]- 6750 Jan, [facility] [place] [facility] [address] [id number] [place] [address]- 0641 Jan, [facility] [place] [facility] [address] [id number] [place] [address]- 9054 Jan, [facility] [place] [facility] [address] [id number] [place] [address]- 3190 Jan, [facility] [place] [facility] [address] [id number] [place] [address]- 6124 30 Dec, 2012 [facility] [place] [facility] [address] [id number] [place] [address]- 8281 30 Dec, 2012 [facility] [place] [facility] [address] [id number] [place] [address]- 2678 25 Dec, 2012 [facility] [place] [facility] [address] [id number] [place] [address]- 0739 Dec, [facility] [place] [facility] [address] [facility] [id number] [place] [address]- 3090 Dec, [facility] [place] [facility] [address] [id number] [place] [address]- 8266 30 Nov, 2012 [facility] [place] [facility] [address] [id number] [address]- 3804 Nov, [facility] [place] [facility] [address] [id number] [place] [address]- 5552 Nov, [facility] [place] [facility] [address] [facility] [id number] [place] [address]- 3661 Nov, [facility] [place] [facility] [address] [facility] [id number] [place] [address]- 6050 16 Nov, 2012 [facility] [place] [facility] [address] [facility] [id number] [place] [address]- 6539 Nov, IMMUNIZATIONS No Known Immunizations SOCIAL HISTORY Never Assessed REASON FOR VISIT pt here for N/V. has appt with ney sancehz on ...wants to keep that appt, but needs a note for work today. reports N/V started this am. encouraged pt to keep appt with Jojo, stay hydrated with wate or gatorade, advance diet as tolerated to BRAT diet. pt verbalized understanding. yassine PLAN OF CARE VITAL SIGNS Height 68 in 2017-10-12 Weight 141.2 lbs 2017-10-12 Temperature 97.6 degrees Fahrenheit 2017-10-12 Heart Rate 90 bpm 2017-10-12 Respiratory Rate 20 2017-10-12 BMI 21.47 kg/m2 2017-10-12 Blood pressure systolic 114 mmHg 2017-10-12 Blood pressure diastolic 70 mmHg 2017-10-12 MEDICATIONS Medication Instructions Dosage Frequency Start Date End Date Duration Status Gabapentin 300 MG Orally Once a day 1 capsule before bedtime 24h Jul, 90 days Active Simvastatin 20 mg Orally Once a day at bedtime 1 tablet by Oral route 1 time per day Jan, 90 days Active Sertraline HCl 50 mg Orally Once a day 1 tablet 24h May, 90 days Active GlipiZIDE 10 mg Orally 2 times a day 1 tablets 12h Jan, 90 days Active Cozaar 25 MG Orally Once a day 0.5 tablet 24h Jan, 90 days Active Levemir Flexpen 100 UNIT/ML Subcutaneous--per insulin sliding scale protocol 2 times a day 30 units 12h Active Pen [place] 32G X 4 MM 1 12h 120 days Active MetFORMIN HCl ER (MOD) 500 mg Orally 2 times a day with meal 2 tablets twice day with meals May, 8 weeks Active Glucocard Expression Test 1 kit subcutaneously 3 times a day test 3 times per day 8h May, 12 months Active RESULTS No Results PROCEDURES No Known procedures INSTRUCTIONS MEDICATIONS ADMINISTERED No Known Medications MEDICAL (GENERAL) HISTORY Type Description Date Medical History DM Medical History Depression Medical History Diabetic Neuropathy Medical History Allergies Medical History Porokeratosis Medical History Plantar wart Medical History 05/2017- Negative exercise stress test Dr Perdomo Hospitalization History [facility]- dx'd w/ DM 2008 Hospitalization History WENT TO ER FOR COLD S/S 09/07/14 Hospitalization History HTN, went to ER May 18, 2017
--- OUTSIDE RECORDS SUMMARY | 2018-01-12 16:05 | XMS REPORT ---
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 Active Problem Essential hypertension I10 Active 73841916 Problem Acute idiopathic gout involving toe of right foot M10.071 Active 65162024 Problem Major depressive disorder, single episode, unspecified F32.9 Active 40526213 Problem Anxiety F41.9 Active 38520426 Problem Neuropathy G62.9 Active 758142829 Problem 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 [id number] [place] [address] [id number] Nov, Dental caries K02.9 [facility] [id number] [place] [address] [id number] Nov, Dental examination Z01.20 [facility] [id number] [place] [address] [id number] Oct, Acute oral pain K13.79 [facility] [address] [place] [address] 74994- 5443 Oct, [place] [id number] [place] [address] 19411- 9916 Oct, [place] [id number] [place] [address] 01616- 6909 Oct, Epigastric abdominal pain R10.13 ; Type 2 diabetes mellitus with diabetic neuropathy E11.40 ; Mixed hyperlipidemia E78.2 ; Essential hypertension I10 ; Major depressive disorder, single episode, unspecified F32.9 ; Neuropathy G62.9 and Non compliance w medication regimen Z91.14 [facility] [id number] [place] [address] 56762 -0786 Oct, [facility] [id number] [place] [address] 22500 -4763 August, [place] [id number] [place] [address] 02000- 6154 August, Type 2 diabetes mellitus with diabetic neuropathy E11.40 ; Mixed hyperlipidemia E78.2 ; Essential hypertension I10 ; Acute idiopathic gout involving toe of right foot M10.071 ; Neuropathy G62.9 and Major depressive disorder, single episode, unspecified F32.9 [facility] [facility] [id number] [place] [address] 83296- 5635 August, [facility] [id number] [place] [address] 49080- 5047 Jul, Essential hypertension I10 ; Neuropathy G62.9 and Musculoskeletal pain M79.1 [facility] [id number] [place] [address] 29229- 5248 14 May, 2017 [facility] [id number] [place] [address] 61890- 2461 09 May, 2017 Type 2 diabetes mellitus with diabetic neuropathy E11.40 ; 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 ; Essential hypertension I10 ; Mixed hyperlipidemia E78.2 ; Non compliance w medication regimen Z91.14 ; Non compliance with medical treatment Z91.19 ; Injury of right thumb, initial encounter S69.91XA and Major depressive disorder, single episode, unspecified F32.9 [facility] [id number] [address] May, [facility] [id number] [place] [address] 61336- 1846 May, [facility] [id number] [place] [address] 16882- 8959 May, Chest pain, unspecified type R07.9 and Type 2 diabetes mellitus with diabetic neuropathy E11.40 [facility] [id number] [place] [address] 28139- 4122 May, [facility] [id number] [place] [address] 04880- 1505 Feb, Abnormal CBC R79.89 [facility] [facility] [address] [address]- [address] Feb, [facility] [facility] [id number] [place] [address] 11274- 9392 Jan, Type 2 diabetes mellitus with diabetic neuropathy E11.40 ; Mixed hyperlipidemia E78.2 ; Neuropathy G62.9 ; Osteoarthritis, unspecified osteoarthritis type, unspecified site M19.90 ; Acute nonseasonal allergic rhinitis due to pollen J30.1 ; Impotence N52.9 ; Anxiety F41.9 ; Essential hypertension I10 and Non compliance w medication regimen Z91.14 [facility] [id number] [place] [address] 74329- 1920 Oct, [facility] [id number] [place] [address] 08526 -0207 Sep, Type 2 diabetes mellitus with diabetic neuropathy E11.40 ; Non compliance w medication regimen Z91.14 ; Non compliance with medical treatment Z91.19 and Foot pain, left M79.672 [facility] [id number] [place] [address] 33742- 2447 Jul, [facility] [address] [place] [address]- 95[address] Jul, [facility] [id number] [place] [address] 59759- 9658 May, Anxiety F41.9 ; Type 2 diabetes mellitus with diabetic neuropathy E11.40 ; Non compliance w medication regimen Z91.14 ; Mixed hyperlipidemia E78.2 and Essential hypertension I10 [facility] [id number] [place] [address] 31281- 9074 Apr, Osteoarthritis, unspecified osteoarthritis type, unspecified site M19.90 [facility] [id number] [place] [address] 16811- 4214 Apr, [facility] [facility] [id number] [place] [address] 83487- 3853 Apr, Type 2 diabetes mellitus with diabetic neuropathy E11.40 ; Non compliance w medication regimen Z91.14 ; Mixed hyperlipidemia E78.2 ; Essential hypertension I10 ; Plantar wart B07.0 and Anxiety F41.9 [facility] [id number] [place] [address] 50196- 9188 Apr, [place] [id number] [place] [address] 86441- 4900 Apr, [facility] [id number] [place] [address] 89795- 6744 Mar, Osteoarthritis, unspecified osteoarthritis type, unspecified site M19.90 and Impotence N52.9 [facility] [id number] [place] [address] 51231- 9086 Mar, [facility] [id number] [place] [address] 87178- 5303 Mar, Type 2 diabetes mellitus with diabetic neuropathy E11.40 ; Anxiety F41.9 and Intractable vomiting with nausea, unspecified vomiting type R11.2 [facility] [id number] [place] [address] 70740- 4520 Mar, Type 2 diabetes mellitus with diabetic neuropathy E11.40 and Intractable vomiting with nausea, unspecified vomiting type R11.2 [facility] [facility] [id number] [place] [address] 88870- 7174 Feb, Porokeratosis Q82.8 and Type 2 diabetes mellitus with diabetic neuropathy E11.40 [facility] [facility] [id number] [place] [address] 15507- 4290 Jan, [place] [id number] [place] [address] 72184- 4814 Dec, [place] [id number] [place] [address] 48464- 8938 Dec, Type 2 diabetes mellitus with diabetic neuropathy E11.40 ; Non compliance w medication regimen Z91.14 ; Impotence N52.9 ; Essential hypertension I10 ; Hyperlipidemia E78.5 ; Neuropathy G62.9 ; 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 and Plantar wart B07.0 [facility] [facility] [id number] [place] [address] 55115- 8155 Dec, [facility] [facility] [id number] [place] [address] 53890- 1265 Nov, Dental examination Z01.20 [facility] [id number] [place] [address] 85050- 6580 Oct, Osteoarthritis, unspecified osteoarthritis type, unspecified site M19.90 ; Type 2 diabetes mellitus with diabetic neuropathy E11.40 ; Impotence N52.9 ; Mixed hyperlipidemia E78.2 ; Hyperlipidemia E78.5 ; Essential hypertension I10 and Plantar wart B07.0 [facility] [id number] [place] [address] 36306- 0016 Sep, [place] [id number] [place] [address] 05739- 8606 August, Abnormal thyroid blood test R94.6 [facility] [facility] [id number] [place] [address] 29276- 2361 August, Dental examination Z01.20 [facility] [id number] [place] [address] 28767- 9511 August, Type 2 diabetes mellitus with diabetic neuropathy E11.40 ; Non compliance w medication regimen Z91.14 ; Impotence N52.9 ; Mixed hyperlipidemia E78.2 ; Abscessed tooth K04.7 and Shoulder pain, left M25.512 [facility] [id number] [place] [address] 28082- 0850 May, Type 2 diabetes mellitus with diabetic neuropathy E11.40 ; Non compliance w medication regimen Z91.14 ; Non compliance with medical treatment Z91.19 ; Shoulder pain, left M25.512 ; General medical exam Z00.00 ; Impotence N52.9 and Hyperlipidemia E78.5 [place] [id number] [place] [address] 38387- 0264 Jan, Type 2 diabetes mellitus with diabetic neuropathy E11.40 ; Noncompliance w/medication treatment due to intermit use of medication Z91.14 and Impotence N52.9 [facility] [id number] [place] [address] 22646- 1360 Jan, [place] [address] 88005- 4927 Dec, [place] [id number] [place] [address] 31999- 7028 Nov, [place] [id number] [place] [address] 87845- 3141 Nov, [place] [id number] [place] [address] 63418- 5448 Nov, [place] [address] 75063- 1743 Nov, Diabetes with neurological manifestations, type II or unspecified type, not stated as uncontrolled 250.60 ; Hyperlipidemia 272.4 ; Allergic rhinitis, cause unspecified 477.9 and Depression 311 [place] [address] 97652- 4318 Sep, [facility] [address] [id number] [place] [address]- 4201 Sep, [facility] [address] [id number] [place] [address]- 3471 Sep, [facility] [address] [id number] [place] [address]- 2455 Sep, Depression 311 and Diabetes type 2, uncontrolled 250.02 [facility] [address] [id number] [place] [address]- 2953 August, [facility] [address] [id number] [place] [address], [place] [address]- 2797 Jul, [facility] [address] [id number] [place] [address]- 8810 Jul, [facility] [address] [id number] [place] [address]- 8122 Apr, [facility] [address] [id number] [place] [address]- 5736 Apr, [facility] [address] [id number] [place] [address]- 0366 Apr, [facility] [address] [facility] [id number] [place] [address]- 7810 Apr, [facility] [address] [id number] [place] [address]- 6211 Jan, [facility] [address] [id number] [place] [address]- 3018 Jan, [facility] [address] [id number] [place] [address]- 4010 Nov, [facility] [address] [id number] [place] [address]- 8159 Nov, [facility] [address] [id number] [place] [address]- 4815 Nov, [facility] [place] [facility] [address] [id number] [place] [address]- 6592 Nov, [facility] [place] [facility] [address] [id number] [place] [address]- 4262 Nov, [facility] [place] [facility] [address] [id number] [place] [address]- 6136 Nov, [facility] [place] [facility] [address] [id number] [place] [address]- 6061 Nov, [facility] [place] [facility] [address] [id number] [place] [address]- 4850 Nov, [facility] [place] [facility] [address] [id number] [place] [address]- 5434 August, [facility] [place] [facility] [address] [id number] [place] [address]- 6140 August, [facility] [place] [facility] [address] [id number] [place] [address]- 3302 August, [facility] [place] [facility] [address] [id number] [place] [address]- 9181 August, [facility] [place] [facility] [address] [id number] [place] [address]- 8448 August, [facility] [place] [facility] [address] [id number] [place] [address]- 0369 May, [facility] [place] [facility] [address] [id number] [place] [address]- 8272 May, [facility] [place] [facility] [address] [id number] [place] [address]- 4158 May, [facility] [place] [facility] [address] [id number] [place] [address]- 7683 May, [facility] [place] [facility] [address] [id number] [place] [address]- 7300 Apr, [facility] [place] [facility] [address] [id number] [place] [address]- 2599 Apr, [facility] [place] [facility] [address] [id number] [place] [address]- 0249 Jan, [facility] [place] [facility] [address] [id number] [place] [address]- 9960 Jan, [facility] [place] [facility] [address] [id number] [place] [address]- 3354 Jan, [facility] [place] [facility] [address] [id number] [place] [address]- 4079 Jan, [facility] [place] [facility] [address] [id number] [place] [address]- 9043 Jan, [facility] [place] [facility] [address] [id number] [place] [address]- 0350 30 Dec, 2012 [facility] [place] [facility] [address] [id number] [place] [address]- 4353 30 Dec, 2012 [facility] [place] [facility] [address] [id number] [place] [address]- 2506 25 Dec, 2012 [facility] [place] [facility] [address] [id number] [place] [address]- 4997 Dec, [facility] [place] [facility] [address] [id number] [place] [address]- 8268 Dec, [facility] [place] [facility] [address] [id number] [place] [address]- 5373 30 Nov, 2012 [facility] [place] [facility] [address] [id number] [place] [address]- 2548 Nov, [facility] [place] [facility] [address] [id number] [place] [address]- 9125 Nov, [facility] [place] [facility] [address] [id number] [place] [address]- 0560 Nov, [facility] [place] [facility] [address] [id number] [place] [address]- 3644 16 Nov, 2012 [facility] [place] [facility] [address] [facility] [id number] [place] [address]- 8058 Nov, IMMUNIZATIONS No Known Immunizations SOCIAL HISTORY Never Assessed REASON FOR VISIT Abdominal pain, epigastric. BATSHEVA Mcnamara PLAN OF CARE Activity Details Follow Up 3 Months, prn Reason:CHM/DM/HTN VITAL SIGNS Height 68 in 2017-10-14 Weight 145.3 lbs 2017-10-14 Temperature 98.7 degrees Fahrenheit 2017-10-14 Heart Rate 90 bpm 2017-10-14 Respiratory Rate 18 2017-10-14 BMI 22.09 kg/m2 2017-10-14 Blood pressure systolic 126 mmHg 2017-10-14 Blood pressure diastolic 78 mmHg 2017-10-14 MEDICATIONS Medication Instructions Dosage Frequency Start Date End Date Duration Status Gabapentin 300 MG Orally Once a day 1 capsule before bedtime 24h Jul, 90 days Active MetFORMIN HCl ER (MOD) 500 mg Orally 2 times a day with meal 2 tablets twice day with meals May, 30 days Active Pen [place] 32G X 4 MM 1 12h 120 days Active Pantoprazole Sodium 40 mg Orally Once a day 1 tablet 24h Oct, 30 day(s) Active Glucocard Expression Test 1 kit subcutaneously 3 times a day test 3 times per day 8h May, 12 months Active Ondansetron 4 MG Orally every 4 hrs 1 tablet on the tongue and allow to dissolve as needed 4h Oct, 07 days Active Cozaar 25 MG Orally Once a day 0.5 tablet 24h Jan, 90 days Active GlipiZIDE XL 10 mg Orally Once a day 1 tablet 24h Oct, 90 days Active Sertraline HCl 50 mg Orally Once a day 1 tablet 24h May, 30 days Active Levemir Flexpen 100 UNIT/ML Subcutaneous--per insulin sliding scale protocol 2 times a day 30 units 12h Active Simvastatin 20 mg Orally Once a day at bedtime 1 tablet by Oral route 1 time per day Jan, 90 days Active RESULTS Name Result Date Reference Range H PYLORI (IN HOUSE) 2017-10-14 H. PYLORI Negative Control + Lot # [id number] Exp date 06/11/2018 PROCEDURES Procedure Date Ordered Result Body Site IMMUNOASSAY,INFECTIOUS AGENT October 14, 2017 INSTRUCTIONS MEDICATIONS ADMINISTERED No Known Medications MEDICAL (GENERAL) HISTORY Type Description Date Medical History DM Medical History Depression Medical History Diabetic Neuropathy Medical History Allergies Medical History Porokeratosis Medical History Plantar wart Medical History 05/2017- Negative exercise stress test Dr Perdomo Hospitalization History [facility]- dx'd w/ DM 2008 Hospitalization History WENT TO ER FOR COLD S/S 09/07/14 Hospitalization History HTN, went to ER May 18, 2017
--- OUTSIDE RECORDS SUMMARY | 2018-01-12 16:06 | XMS REPORT ---
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 Active Problem Essential hypertension I10 Active 26185133 Problem Acute idiopathic gout involving toe of right foot M10.071 Active 80053064 Problem Major depressive disorder, single episode, unspecified F32.9 Active 07972313 Problem Anxiety F41.9 Active 95393373 Problem Neuropathy G62.9 Active 476708913 Problem 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 Active 872740014 Problem Acute nonseasonal allergic rhinitis due to pollen J30.1 Active 61640182 Problem Non compliance w medication regimen Z91.14 Active 376565542 Problem Non compliance with medical treatment Z91.19 Active 7240673 Problem Abnormal CBC R79.89 Active 531688667 Problem Impotence N52.9 Active 024726347 Problem Type 2 diabetes mellitus with diabetic neuropathy E11.40 Active 8782934519404 Problem Mixed hyperlipidemia E78.2 Active 085589451 ALLERGIES No Information ENCOUNTERS Encounter Location Date Diagnosis [facility] [id number] [place] [address] [id number] Nov, Dental caries K02.9 [facility] [id number] [address] [id number] Nov, Dental examination Z01.20 [facility] [id number] [place] [address] [id number] Oct, Acute oral pain K13.79 [facility] [id number] [address] 20897- 4781 Oct, [place] [id number] [address] 53075- 6279 Oct, [place] [id number] [place] [address] 89442- 4328 Oct, Epigastric abdominal pain R10.13 ; Type 2 diabetes mellitus with diabetic neuropathy E11.40 ; Mixed hyperlipidemia E78.2 ; Essential hypertension I10 ; Major depressive disorder, single episode, unspecified F32.9 ; Neuropathy G62.9 and Non compliance w medication regimen Z91.14 [facility] [id number] [address] 97294 -1182 Oct, [facility] [id number] [place] [address] 20374 -2358 August, [place] [id number] [place] [address] 57273- 2935 August, Type 2 diabetes mellitus with diabetic neuropathy E11.40 ; Mixed hyperlipidemia E78.2 ; Essential hypertension I10 ; Acute idiopathic gout involving toe of right foot M10.071 ; Neuropathy G62.9 and Major depressive disorder, single episode, unspecified F32.9 [place] [id number] [address] 50937- 4284 August, [place] [id number] [place] [address] 03849- 9266 Jul, Essential hypertension I10 ; Neuropathy G62.9 and Musculoskeletal pain M79.1 [place] [id number] [address] 63213- 4384 14 May, 2017 [place] [id number] [place] [address] 82699- 8576 09 May, 2017 Type 2 diabetes mellitus with diabetic neuropathy E11.40 ; custodial (current) use of insulin Z79.4 ; Essential hypertension I10 ; Mixed hyperlipidemia E78.2 ; Non compliance w medication regimen Z91.14 ; Non compliance with medical treatment Z91.19 ; Injury of right thumb, initial encounter S69.91XA and Major depressive disorder, single episode, unspecified F32.9 [facility] [id number] [address] May, [facility] [id number] [address] 78351- 3329 May, [facility] [id number] [place] [address] 65068- 6342 May, Chest pain, unspecified type R07.9 and Type 2 diabetes mellitus with diabetic neuropathy E11.40 [place] [id number] [place] [address] 86062- 8273 May, [place] [id number] [place] [address] 77431- 7397 Feb, Abnormal CBC R79.89 [place] [id number] [place] [address] 74267- 8445 Feb, [place] [id number] [place] [address] 12372- 7994 Jan, Type 2 diabetes mellitus with diabetic neuropathy E11.40 ; Mixed hyperlipidemia E78.2 ; Neuropathy G62.9 ; Osteoarthritis, unspecified osteoarthritis type, unspecified site M19.90 ; Acute nonseasonal allergic rhinitis due to pollen J30.1 ; Impotence N52.9 ; Anxiety F41.9 ; Essential hypertension I10 and Non compliance w medication regimen Z91.14 [facility] [id number] [place] [address] 97027- 8072 Oct, [facility] [address] [address] 77205 -3112 Sep, Type 2 diabetes mellitus with diabetic neuropathy E11.40 ; Non compliance w medication regimen Z91.14 ; Non compliance with medical treatment Z91.19 and Foot pain, left M79.672 [facility] [id number] [address] 36506- 4628 Jul, [facility] [id number] [place] [address] 10916- 4733 Jul, [facility] [id number] [place] [address] 31334- 8914 May, Anxiety F41.9 ; Type 2 diabetes mellitus with diabetic neuropathy E11.40 ; Non compliance w medication regimen Z91.14 ; Mixed hyperlipidemia E78.2 and Essential hypertension I10 [place] [id number] [place] [address] 38101- 0844 Apr, Osteoarthritis, unspecified osteoarthritis type, unspecified site M19.90 [place] [id number] [place] [address] 20974- 4126 Apr, [place] [id number] [place] [address] 83155- 1584 Apr, Type 2 diabetes mellitus with diabetic neuropathy E11.40 ; Non compliance w medication regimen Z91.14 ; Mixed hyperlipidemia E78.2 ; Essential hypertension I10 ; Plantar wart B07.0 and Anxiety F41.9 [place] [id number] [address] 03189- 2235 Apr, [place] [id number] [address] 09016- 1427 Apr, [facility] [id number] [place] [address] 05888- 6200 Mar, Osteoarthritis, unspecified osteoarthritis type, unspecified site M19.90 and Impotence N52.9 [facility] [id number] [address] 89496- 7570 Mar, [facility] [id number] [address] 44559- 0027 Mar, Type 2 diabetes mellitus with diabetic neuropathy E11.40 ; Anxiety F41.9 and Intractable vomiting with nausea, unspecified vomiting type R11.2 [facility] [id number] [address] 32718- 7219 Mar, Type 2 diabetes mellitus with diabetic neuropathy E11.40 and Intractable vomiting with nausea, unspecified vomiting type R11.2 [place] [id number] [address] 97163- 5540 Feb, Porokeratosis Q82.8 and Type 2 diabetes mellitus with diabetic neuropathy E11.40 [place] [id number] [place] [address] 39150- 7206 Jan, [place] [id number] [place] [address] 55900- 0895 Dec, [place] [id number] [place] [address] 70985- 2091 Dec, Type 2 diabetes mellitus with diabetic neuropathy E11.40 ; Non compliance w medication regimen Z91.14 ; Impotence N52.9 ; Essential hypertension I10 ; Hyperlipidemia E78.5 ; Neuropathy G62.9 ; 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 and Plantar wart B07.0 [place] [id number] [address] 71653- 7802 Dec, [place] [id number] [place] [address] 73378- 1585 Nov, Dental examination Z01.20 [place] [id number] [address] 44816- 3535 Oct, Osteoarthritis, unspecified osteoarthritis type, unspecified site M19.90 ; Type 2 diabetes mellitus with diabetic neuropathy E11.40 ; Impotence N52.9 ; Mixed hyperlipidemia E78.2 ; Hyperlipidemia E78.5 ; Essential hypertension I10 and Plantar wart B07.0 [place] [id number] [address] 93947- 2914 Sep, [place] [id number] [place] [address] 80470- 1057 August, Abnormal thyroid blood test R94.6 [place] [id number] [place] [address] 42488- 3699 August, Dental examination Z01.20 [place] [id number] [address] 02566- 7364 August, Type 2 diabetes mellitus with diabetic neuropathy E11.40 ; Non compliance w medication regimen Z91.14 ; Impotence N52.9 ; Mixed hyperlipidemia E78.2 ; Abscessed tooth K04.7 and Shoulder pain, left M25.512 [place] [id number] [address] 18507- 0956 May, Type 2 diabetes mellitus with diabetic neuropathy E11.40 ; Non compliance w medication regimen Z91.14 ; Non compliance with medical treatment Z91.19 ; Shoulder pain, left M25.512 ; General medical exam Z00.00 ; Impotence N52.9 and Hyperlipidemia E78.5 [place] [id number] [address] 28811- 8426 Jan, Type 2 diabetes mellitus with diabetic neuropathy E11.40 ; Noncompliance w/medication treatment due to intermit use of medication Z91.14 and Impotence N52.9 [place] [id number] [address] 96970- 1667 Jan, [place] [address] 34783- 0624 Dec, [place] [id number] [place] [address] 42901- 0458 Nov, [place] [id number] [place] [address] 03034- 4691 Nov, [place] [id number] [place] [address] 35775- 2849 Nov, [place] [address] 21447- 8344 Nov, Diabetes with neurological manifestations, type II or unspecified type, not stated as uncontrolled 250.60 ; Hyperlipidemia 272.4 ; Allergic rhinitis, cause unspecified 477.9 and Depression 311 [place] [id number] [place] [address] 61906- 3067 Sep, [facility] [address] [id number] [place] [address]- 3763 Sep, [facility] [address] [id number] [place] [address]- 4026 Sep, [facility] [address] [facility] [id number] [place] [address]- 6998 Sep, Depression 311 and Diabetes type 2, uncontrolled 250.02 [facility] [address] [id number] [place] [address]- 9788 August, [facility] [id number] [place] [address], [place] [address]- 2584 Jul, [facility] [address] [id number] [place] [address]- 2231 Jul, [facility] [address] [id number] [place] [address]- 4630 Apr, [facility] [address] [id number] [place] [address]- 9859 Apr, [facility] [address] [id number] [place] [address]- 1321 Apr, [facility] [address] [facility] [id number] [place] [address]- 1525 Apr, [facility] [address] [id number] [place] [address]- 2712 Jan, [facility] [address] [id number] [place] [address]- 1412 Jan, [facility] [address] [id number] [place] [address]- 0926 Nov, [facility] [address] [id number] [place] [address]- 8139 Nov, [facility] [address] [id number] [place] [address]- 4963 Nov, [facility] [place] [facility] [address] [id number] [place] [address]- 7078 Nov, [facility] [place] [facility] [address] [id number] [place] [address]- 6551 Nov, [facility] [place] [facility] [address] [id number] [place] [address]- 0889 Nov, [facility] [place] [facility] [address] [id number] [place] [address]- 7925 Nov, [facility] [place] [facility] [address] [id number] [place] [address]- 0792 Nov, [facility] [place] [facility] [address] [id number] [place] [address]- 8896 August, [facility] [place] [facility] [address] [id number] [place] [address]- 5498 August, [facility] [place] [facility] [address] [id number] [place] [address]- 0928 August, [facility] [place] [facility] [address] [id number] [place] [address]- 0623 August, [facility] [place] [facility] [address] [id number] [place] [address]- 1849 August, [facility] [place] [facility] [address] [id number] [place] [address]- 4778 May, [facility] [place] [facility] [address] [id number] [place] [address]- 7141 May, [facility] [place] [facility] [address] [id number] [place] [address]- 4475 May, [facility] [place] [facility] [address] [id number] [place] [address]- 0205 May, [facility] [place] [facility] [address] [id number] [place] [address]- 6502 Apr, [facility] [place] [facility] [address] [id number], [place] [address]- 4706 Apr, [facility] [place] [facility] [address] [id number] [place] [address]- 0278 Jan, [facility] [place] [facility] [address] [id number] [place] [address]- 9870 Jan, [facility] [place] [facility] [address] [id number] [place] [address]- 2509 Jan, [facility] [place] [facility] [address] [id number] [place] [address]- 6341 Jan, [facility] [place] [facility] [address] [id number] [place] [address]- 7821 Jan, [facility] [place] [facility] [address] [id number] [place] [address]- 6648 30 Dec, 2012 [facility] [place] [facility] [address] [id number] [place] [address]- 0074 30 Dec, 2012 [facility] [place] [facility] [address] [id number] [place] [address]- 5117 25 Dec, 2012 [facility] [place] [facility] [address] [id number] [place] [address]- 6513 Dec, [facility] [place] [facility] [address] [facility] [id number] [place] [address]- 7087 Dec, [facility] [place] [facility] [address] [id number] [place] [address]- 4586 30 Nov, 2012 [facility] [place] [facility] [address] [id number], [place] [address]- 8917 Nov, [facility] [place] [facility] [address] [id number] [place] [address]- 4033 Nov, [facility] [place] [facility] [address] [facility] [id number] [place] [address]- 5191 Nov, [facility] [place] [facility] [address] [facility] [id number] [place] [address]- 0355 16 Nov, 2012 [facility] [place] [facility] [address] [facility] [id number] [place] [address]- 3182 Nov, IMMUNIZATIONS No Known Immunizations SOCIAL HISTORY Never Assessed REASON FOR VISIT triage JStrasserRPauly PLAN OF CARE VITAL SIGNS Height 68 in 2017-09-07 Weight 142.0 lbs 2017-09-07 Temperature 98.1 degrees Fahrenheit 2017-09-07 Heart Rate 92 bpm 2017-09-07 Respiratory Rate 20 2017-09-07 BMI 21.59 kg/m2 2017-09-07 Blood pressure systolic 110 mmHg 2017-09-07 Blood pressure diastolic 72 mmHg 2017-09-07 MEDICATIONS Unknown Medications RESULTS No Results PROCEDURES No Known procedures INSTRUCTIONS MEDICATIONS ADMINISTERED No Known Medications MEDICAL (GENERAL) HISTORY Type Description Date Medical History DM Medical History Depression Medical History Diabetic Neuropathy Medical History Allergies Medical History Porokeratosis Medical History Plantar wart Medical History 05/2017- Negative exercise stress test Dr Perdomo Hospitalization [facility]- [facility]'d w/ DM 2008 Hospitalization History WENT TO ER FOR COLD S/S 09/07/14 Hospitalization History HTN, went to ER May 18, 2017
--- OUTSIDE RECORDS SUMMARY | 2018-01-12 16:06 | XMS REPORT ---
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 Active Problem Essential hypertension I10 Active 24515292 Problem Acute idiopathic gout involving toe of right foot M10.071 Active 18471999 Problem Major depressive disorder, single episode, unspecified F32.9 Active 41450851 Problem Anxiety F41.9 Active 47360432 Problem Neuropathy G62.9 Active 243429642 Problem 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 076490275 Problem Acute nonseasonal allergic rhinitis due to pollen J30.1 Active 97855471 Problem Non compliance w medication regimen Z91.14 Active 794490509 Problem Non compliance with medical treatment Z91.19 Active 3200321 Problem Abnormal CBC R79.89 Active 655672867 Problem Impotence N52.9 Active 664771532 Problem Type 2 diabetes mellitus with diabetic neuropathy E11.40 Active 6548035375762 Problem Mixed hyperlipidemia E78.2 Active 390198005 ALLERGIES No Known Allergies ENCOUNTERS Encounter Location Date Diagnosis [facility] [id number] [place] [address] [id number] Nov, Dental caries K02.9 [facility] [id number] [place] [address] [id number] Nov, Dental examination Z01.20 [facility] [id number] [place] [address] [id number] Oct, Acute oral pain K13.79 [facility] [id number] [place] [address] 05041- 4212 Oct, [facility] [id number] [place] [address] 42827- 2976 Oct, [facility] [id number] [place] [address] 47736- 2896 Oct, Epigastric abdominal pain R10.13 ; Type 2 diabetes mellitus with diabetic neuropathy E11.40 ; Mixed hyperlipidemia E78.2 ; Essential hypertension I10 ; Major depressive disorder, single episode, unspecified F32.9 ; Neuropathy G62.9 and Non compliance w medication regimen Z91.14 [facility] [id number] [place] [address] 68219 -4558 Oct, [facility] [id number] [place] [address] 78926 -5723 August, [facility] [id number] [place] [address] 88318- 7667 August, Type 2 diabetes mellitus with diabetic neuropathy E11.40 ; Mixed hyperlipidemia E78.2 ; Essential hypertension I10 ; Acute idiopathic gout involving toe of right foot M10.071 ; Neuropathy G62.9 and Major depressive disorder, single episode, unspecified F32.9 [facility] [id number] [place] [address] 77566- 2835 August, [facility] [id number] [place] [address] 64293- 9300 Jul, Essential hypertension I10 ; Neuropathy G62.9 and Musculoskeletal pain M79.1 [facility] [id number] [place] [address] 99316- 4066 14 May, 2017 [facility] [id number] [place] [address] 82972- 4950 09 May, 2017 Type 2 diabetes mellitus with diabetic neuropathy E11.40 ; 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 ; Essential hypertension I10 ; Mixed hyperlipidemia E78.2 ; Non compliance w medication regimen Z91.14 ; Non compliance with medical treatment Z91.19 ; Injury of right thumb, initial encounter S69.91XA and Major depressive disorder, single episode, unspecified F32.9 [facility] [id number] [address] May, [facility] [id number] [place] [address] 09338- 6404 May, [facility] [id number] [place] [address] 35555- 2735 May, Chest pain, unspecified type R07.9 and Type 2 diabetes mellitus with diabetic neuropathy E11.40 [facility] [id number] [place] [address] 55934- 5923 May, [facility] [id number] [place] [address] 67353- 2774 Feb, Abnormal CBC R79.89 [facility] [address] 71841- 0942 Feb, [facility] [id number] [place] [address] 16075- 7184 Jan, Type 2 diabetes mellitus with diabetic neuropathy E11.40 ; Mixed hyperlipidemia E78.2 ; Neuropathy G62.9 ; Osteoarthritis, unspecified osteoarthritis type, unspecified site M19.90 ; Acute nonseasonal allergic rhinitis due to pollen J30.1 ; Impotence N52.9 ; Anxiety F41.9 ; Essential hypertension I10 and Non compliance w medication regimen Z91.14 [facility] [id number] [place] [address] 16956- 4853 Oct, [facility] [id number] [place] [address] 61313 -7867 Sep, Type 2 diabetes mellitus with diabetic neuropathy E11.40 ; Non compliance w medication regimen Z91.14 ; Non compliance with medical treatment Z91.19 and Foot pain, left M79.672 [facility] [id number] [place] [address] 18321- 0827 Jul, [facility] [address] [place] [address]- 8068 Jul, [facility] [id number] [place] [address] 02299- 2871 May, Anxiety F41.9 ; Type 2 diabetes mellitus with diabetic neuropathy E11.40 ; Non compliance w medication regimen Z91.14 ; Mixed hyperlipidemia E78.2 and Essential hypertension I10 [facility] [id number] [place] [address] 18342- 3077 Apr, Osteoarthritis, unspecified osteoarthritis type, unspecified site M19.90 [facility] [id number] [place] [address] 53731- 5499 Apr, [facility] [id number] [place] [address] 94967- 4947 Apr, Type 2 diabetes mellitus with diabetic neuropathy E11.40 ; Non compliance w medication regimen Z91.14 ; Mixed hyperlipidemia E78.2 ; Essential hypertension I10 ; Plantar wart B07.0 and Anxiety F41.9 [facility] [id number] [place] [address] 36544- 4567 Apr, [facility] [id number] [place] [address] 02842- 0134 Apr, [facility] [id number] [place] [address] 22217- 4022 Mar, Osteoarthritis, unspecified osteoarthritis type, unspecified site M19.90 and Impotence N52.9 [facility] [id number] [place] [address] 24383- 3525 Mar, [facility] [id number] [place] [address] 22611- 4266 Mar, Type 2 diabetes mellitus with diabetic neuropathy E11.40 ; Anxiety F41.9 and Intractable vomiting with nausea, unspecified vomiting type R11.2 [facility] [id number] [place] [address] 05340- 3644 Mar, Type 2 diabetes mellitus with diabetic neuropathy E11.40 and Intractable vomiting with nausea, unspecified vomiting type R11.2 [facility] [id number] [place] [address] 69201- 5115 Feb, Porokeratosis Q82.8 and Type 2 diabetes mellitus with diabetic neuropathy E11.40 [facility] [id number] [place] [address] 06201- 4037 Jan, [facility] [id number] [place] [address] 62406- 0019 Dec, [facility] [id number] [place] [address] 16732- 9885 Dec, Type 2 diabetes mellitus with diabetic neuropathy E11.40 ; Non compliance w medication regimen Z91.14 ; Impotence N52.9 ; Essential hypertension I10 ; Hyperlipidemia E78.5 ; Neuropathy G62.9 ; 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 and Plantar wart B07.0 [facility] [id number] [place] [address] 01203- 5975 Dec, [facility] [id number] [place] [address] 66351- 4675 Nov, Dental examination Z01.20 [facility] [id number] [place] [address] 59882- 0834 Oct, Osteoarthritis, unspecified osteoarthritis type, unspecified site M19.90 ; Type 2 diabetes mellitus with diabetic neuropathy E11.40 ; Impotence N52.9 ; Mixed hyperlipidemia E78.2 ; Hyperlipidemia E78.5 ; Essential hypertension I10 and Plantar wart B07.0 [facility] [id number] [place] [address] 73245- 4846 Sep, [facility] [id number] [place] [address] 20991- 9822 August, Abnormal thyroid blood test R94.6 [facility] [id number] [place] [address] 62668- 6549 August, Dental examination Z01.20 [facility] [id number] [place] [address] 13961- 6772 August, Type 2 diabetes mellitus with diabetic neuropathy E11.40 ; Non compliance w medication regimen Z91.14 ; Impotence N52.9 ; Mixed hyperlipidemia E78.2 ; Abscessed tooth K04.7 and Shoulder pain, left M25.512 [facility] [id number] [place] [address] 92634- 8934 May, Type 2 diabetes mellitus with diabetic neuropathy E11.40 ; Non compliance w medication regimen Z91.14 ; Non compliance with medical treatment Z91.19 ; Shoulder pain, left M25.512 ; General medical exam Z00.00 ; Impotence N52.9 and Hyperlipidemia E78.5 [facility] [id number] [place] [address] 01910- 4742 Jan, Type 2 diabetes mellitus with diabetic neuropathy E11.40 ; Noncompliance w/medication treatment due to intermit use of medication Z91.14 and Impotence N52.9 [facility] [id number] [place] [address] 02565- 3478 Jan, [facility] [address] 43503- 1270 Dec, [facility] [id number] [place] [address] 85867- 5585 Nov, [facility] [id number] [place] [address] 07860- 7749 Nov, [facility] [id number] [place] [address] 29550- 6354 Nov, [facility] [address] 12050- 4273 Nov, Diabetes with neurological manifestations, type II or unspecified type, not stated as uncontrolled 250.60 ; Hyperlipidemia 272.4 ; Allergic rhinitis, cause unspecified 477.9 and Depression 311 [facility] [address] 73199- 6747 Sep, [facility] [address] [id number] [place] [address]- 2400 Sep, [facility] [address] [id number] [place] [address]- 8604 Sep, [facility] [address] [id number] [place] [address]- 5701 Sep, Depression 311 and Diabetes type 2, uncontrolled 250.02 [facility] [address] [id number] [place] [address]- 0788 August, [facility] [id number] [place] [address], [place] [address]- 1488 Jul, [facility] [address] [id number] [place] [address]- 7222 Jul, [facility] [address] [id number] [place] [address]- 4354 Apr, [facility] [address] [id number] [place] [address]- 6715 Apr, [facility] [address] [id number] [place] [address]- 8392 Apr, [facility] [address] [facility] [id number] [place] [address]- 6452 Apr, [facility] [address] [id number] [place] [address]- 6033 Jan, [facility] [address] [id number] [place] [address]- 0558 Jan, [facility] [address] [id number] [place] [address]- 1815 Nov, [facility] [address] [id number] [place] [address]- 6645 Nov, [facility] [address] [id number] [place] [address]- 0214 Nov, [facility] [place] [facility] [address] [id number] [place] [address]- 8152 Nov, [facility] [place] [facility] [address] [id number] [place] [address]- 0109 Nov, [facility] [place] [facility] [address] [id number] [place] [address]- 3409 Nov, [facility] [place] [facility] [address] [id number] [place] [address]- 2218 Nov, [facility] [place] [facility] [address] [id number] [place] [address]- 0235 Nov, [facility] [place] [facility] [address] [id number] [place] [address]- 3437 August, [facility] [place] [facility] [address] [id number] [place] [address]- 8826 August, [facility] [place] [facility] [address] [id number] [place] [address]- 3440 August, [facility] [place] [facility] [address] [id number] [place] [address]- 2564 August, [facility] [place] [facility] [address] [id number] [place] [address]- 5225 August, [facility] [place] [facility] [address] [id number] [place] [address]- 2584 May, [facility] [place] [facility] [address] [id number] [place] [address]- 0029 May, [facility] [place] [facility] [address] [id number] [place] [address]- 7428 May, [facility] [place] [facility] [address] [id number] [place] [address]- 4889 May, [facility] [place] [facility] [address] [id number] [place] [address]- 2681 Apr, [facility] [place] [facility] [address] [id number] [place] [address]- 7186 Apr, [facility] [place] [facility] [address] [id number] [place] [address]- 6019 Jan, [facility] [place] [facility] [address] [id number] [place] [address]- 5444 Jan, [facility] [place] [facility] [address] [id number] [place] [address]- 8251 Jan, [facility] [place] [facility] [address] [id number] [place] [address]- 4929 Jan, [facility] [place] [facility] [address] [id number] [place] [address]- 7610 Jan, [facility] [place] [facility] [address] [id number] [place] [address]- 3193 30 Dec, 2012 [facility] [place] [facility] [address] [id number] [place] [address]- 4216 30 Dec, 2012 [facility] [place] [facility] [address] [id number] [place] [address]- 9482 25 Dec, 2012 [facility] [place] [facility] [address] [id number] [place] [address]- 5148 Dec, [facility] [place] [facility] [address] [id number] [place] [address]- 9794 Dec, [facility] [place] [facility] [address] [id number] [place] [address]- 7276 30 Nov, 2012 [facility] [place] [facility] [address] [id number] [place] [address]- 2548 Nov, [facility] [place] [facility] [address] [id number] [place] [address]- 1085 Nov, [facility] [place] [facility] [address] [id number] [place] [address]- 1123 Nov, [facility] [place] [facility] [address] [id number] [place] [address]- 2167 16 Nov, 2012 [facility] [place] [facility] [address] [facility] [id number] [place] [address]- 6093 Nov, IMMUNIZATIONS No Known Immunizations SOCIAL HISTORY Never Assessed REASON FOR VISIT Pain (acute)foot-wilmaroden SOPHIA, no energy, feel weak, toe on right foot is swollen , congestion PLAN OF CARE Activity Details Follow Up 3 Months, prn Reason:CHM/DM VITAL SIGNS Height 68 in 2017-08-24 Weight 146.8 lbs 2017-08-24 Temperature 98.4 degrees Fahrenheit 2017-08-24 Heart Rate 68 bpm 2017-08-24 Respiratory Rate 20 2017-08-24 BMI 22.32 kg/m2 2017-08-24 Blood pressure systolic 160 mmHg 2017-08-24 Blood pressure diastolic 98 mmHg 2017-08-24 MEDICATIONS Medication Instructions Dosage Frequency Start Date End Date Duration Status PredniSONE 20 mg Orally Once a day 1 tablet 24h August, August, 07 days Active Indomethacin 50 MG Orally Twice a day 1 capsule with food or milk 12h August, Sep, 30 day(s) Active Gabapentin 300 MG Orally Once a day 1 capsule before bedtime 24h Jul, 90 days Active Simvastatin 20 mg Orally Once a day at bedtime 1 tablet by Oral route 1 time per day Jan, 90 days Active Sertraline HCl 50 mg Orally Once a day 1 tablet 24h May, 90 days Active MetFORMIN HCl ER (MOD) 500 mg Orally 2 times a day with meal 2 tablets twice day with meals May, 8 weeks Active Glucocard Expression Test 1 kit subcutaneously 3 times a day test 3 times per day 8h May, 12 months Active GlipiZIDE 10 mg Orally 2 times a day 1 tablets 12h Jan, 90 days Active Levemir Flexpen 100 UNIT/ML Subcutaneous--per insulin sliding scale protocol 2 times a day 30 units 12h Active Cozaar 25 MG Orally Once a day 0.5 tablet 24h Jan, 90 days Active Pen Monument 32G X 4 MM 1 12h 120 days Active RESULTS No Results PROCEDURES Procedure Date Ordered Result Body Site ASSAY OF BLOOD/URIC ACID August 24, 2017 GLYCATED HEMOGLOBIN TEST August 24, 2017 MICROALBUMIN, SEMIQUANT August 24, 2017 X-RAY EXAM OF FOOT August 24, 2017 VENIPUNCT, ROUTINE* August 24, 2017 INSTRUCTIONS MEDICATIONS ADMINISTERED No Known Medications MEDICAL (GENERAL) HISTORY Type Description Date Medical History DM Medical History Depression Medical History Diabetic Neuropathy Medical History Allergies Medical History Porokeratosis Medical History Plantar wart Medical History 05/2017- Negative exercise stress test Dr Perdomo Hospitalization History [facility]- dx'd w/ DM 2008 Hospitalization History WENT TO ER FOR COLD S/S 09/07/14 Hospitalization History HTN, went to ER May 18, 2017
--- OUTSIDE RECORDS SUMMARY | 2018-01-12 16:06 | XMS REPORT ---
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 Active Problem Essential hypertension I10 Active 88672707 Problem Acute idiopathic gout involving toe of right foot M10.071 Active 97615615 Problem Major depressive disorder, single episode, unspecified F32.9 Active 62918536 Problem Anxiety F41.9 Active 51041207 Problem Neuropathy G62.9 Active 463284988 Problem 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 915746425 Problem Acute nonseasonal allergic rhinitis due to pollen J30.1 Active 14094287 Problem Non compliance w medication regimen Z91.14 Active 476581568 Problem Non compliance with medical treatment Z91.19 Active 8305946 Problem Abnormal CBC R79.89 Active 472811609 Problem Impotence N52.9 Active 492315292 Problem Type 2 diabetes mellitus with diabetic neuropathy E11.40 Active 5676311938412 Problem Mixed hyperlipidemia E78.2 Active 974985558 ALLERGIES No Information ENCOUNTERS Encounter Location Date Diagnosis [facility] [id number] [place] [address] 312406- [address] Nov, [facility] [address] [place] [address] [id number] Nov, [facility] [id number] [place] [address] [id number] Nov, Dental examination Z01.20 [facility] [address] [place] [address] [id number] Oct, Acute oral pain K13.79 [facility] [address] [address] Oct, [facility] [id number] [place] [address] 60446- 1514 Oct, [facility] [id number] [place] [address] 48206- 1726 Oct, Epigastric abdominal pain R10.13 ; Type 2 diabetes mellitus with diabetic neuropathy E11.40 ; Mixed hyperlipidemia E78.2 ; Essential hypertension I10 ; Major depressive disorder, single episode, unspecified F32.9 ; Neuropathy G62.9 and Non compliance w medication regimen Z91.14 [facility] [id number] [place] [address]07 -9406 Oct, [facility] [id number] [place] [address] 72417 -1104 August, [place] [id number] [place] [address] 99826- 4892 August, Type 2 diabetes mellitus with diabetic neuropathy E11.40 ; Mixed hyperlipidemia E78.2 ; Essential hypertension I10 ; Acute idiopathic gout involving toe of right foot M10.071 ; Neuropathy G62.9 and Major depressive disorder, single episode, unspecified F32.9 [place] [address] [address] August, [place] [id number] [place] [address] 91062- 0560 Jul, Essential hypertension I10 ; Neuropathy G62.9 and Musculoskeletal pain M79.1 [place] [address] [place] [address] 12410- 2222 May, [place] [id number] [place] [address] 05453- 3795 09 May, 2017 Type 2 diabetes mellitus with diabetic neuropathy E11.40 ; 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 ; Essential hypertension I10 ; Mixed hyperlipidemia E78.2 ; Non compliance w medication regimen Z91.14 ; Non compliance with medical treatment Z91.19 ; Injury of right thumb, initial encounter S69.91XA and Major depressive disorder, single episode, unspecified F32.9 [place] [address] [address]33- 4467 08 May, 2017 [place] [address] 87971- 1697 May, [place] [address] 09365- 2522 May, Chest pain, unspecified type R07.9 and Type 2 diabetes mellitus with diabetic neuropathy E11.40 [place] [address] 72488- 1589 May, [place] [address] 36988- 1669 Feb, Abnormal CBC R79.89 [place] [address] 30868- 4353 Feb, [place] [address] 67659- 0779 Jan, Type 2 diabetes mellitus with diabetic neuropathy E11.40 ; Mixed hyperlipidemia E78.2 ; Neuropathy G62.9 ; Osteoarthritis, unspecified osteoarthritis type, unspecified site M19.90 ; Acute nonseasonal allergic rhinitis due to pollen J30.1 ; Impotence N52.9 ; Anxiety F41.9 ; Essential hypertension I10 and Non compliance w medication regimen Z91.14 [place] [id number] [place] [address] 57226- 1859 Oct, [facility] [address] 56[address] -3160 Sep, Type 2 diabetes mellitus with diabetic neuropathy E11.40 ; Non compliance w medication regimen Z91.14 ; Non compliance with medical treatment Z91.19 and Foot pain, left M79.672 [place] [address] 91694- 9322 Jul, [place] [id number] [place] [address] 44969- 9379 Jul, [place] [address] 60037- 7254 May, Anxiety F41.9 ; Type 2 diabetes mellitus with diabetic neuropathy E11.40 ; Non compliance w medication regimen Z91.14 ; Mixed hyperlipidemia E78.2 and Essential hypertension I10 [place] [id number] [place] [address] 30248- 4365 Apr, Osteoarthritis, unspecified osteoarthritis type, unspecified site M19.90 [place] [address] 48540- 4759 Apr, [place] [address] 75156- 8048 Apr, Type 2 diabetes mellitus with diabetic neuropathy E11.40 ; Non compliance w medication regimen Z91.14 ; Mixed hyperlipidemia E78.2 ; Essential hypertension I10 ; Plantar wart B07.0 and Anxiety F41.9 [place] [id number] [place] [address] 13407- 7580 Apr, [place] [id number] [place] [address] 38895- 5785 Apr, [place] [id number] [place] [address] 93350- 2584 Mar, Osteoarthritis, unspecified osteoarthritis type, unspecified site M19.90 and Impotence N52.9 [place] [id number] [place] [address] 15922- 2749 Mar, [place] [address] 33936- 6377 Mar, Type 2 diabetes mellitus with diabetic neuropathy E11.40 ; Anxiety F41.9 and Intractable vomiting with nausea, unspecified vomiting type R11.2 [place] [id number] [place] [address] 92777- 0856 Mar, Type 2 diabetes mellitus with diabetic neuropathy E11.40 and Intractable vomiting with nausea, unspecified vomiting type R11.2 [place] [id number] [place] [address] 39053- 0338 Feb, Porokeratosis Q82.8 and Type 2 diabetes mellitus with diabetic neuropathy E11.40 [place] [address] 27327- 3684 Jan, [place] [id number] [place] [address] 84261- 4627 Dec, [place] [address] 87380- 8672 Dec, Type 2 diabetes mellitus with diabetic neuropathy E11.40 ; Non compliance w medication regimen Z91.14 ; Impotence N52.9 ; Essential hypertension I10 ; Hyperlipidemia E78.5 ; Neuropathy G62.9 ; 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 and Plantar wart B07.0 [place] [id number] [place] [address] 97682- 1730 Dec, [place] [id number] [place] [address] 38365- 3521 Nov, Dental examination Z01.20 [place] [address] 36757- 5154 Oct, Osteoarthritis, unspecified osteoarthritis type, unspecified site M19.90 ; Type 2 diabetes mellitus with diabetic neuropathy E11.40 ; Impotence N52.9 ; Mixed hyperlipidemia E78.2 ; Hyperlipidemia E78.5 ; Essential hypertension I10 and Plantar wart B07.0 [place] [id number] [place] [address] 24123- 8755 Sep, [place] [id number] [place] [address] 96916- 2361 August, Abnormal thyroid blood test R94.6 [place] [address] [place] [address]- 3269 August, Dental examination Z01.20 [place] [address] 71441- 6461 17 Aug, 2015 Type 2 diabetes mellitus with diabetic neuropathy E11.40 ; Non compliance w medication regimen Z91.14 ; Impotence N52.9 ; Mixed hyperlipidemia E78.2 ; Abscessed tooth K04.7 and Shoulder pain, left M25.512 [place] [address] 76282- 1360 12 May, 2015 Type 2 diabetes mellitus with diabetic neuropathy E11.40 ; Non compliance w medication regimen Z91.14 ; Non compliance with medical treatment Z91.19 ; Shoulder pain, left M25.512 ; General medical exam Z00.00 ; Impotence N52.9 and Hyperlipidemia E78.5 [place] [address] 62077- 8811 Jan, Type 2 diabetes mellitus with diabetic neuropathy E11.40 ; Noncompliance w/medication treatment due to intermit use of medication Z91.14 and Impotence N52.9 [place] [address] 17733- 9558 Jan, [place] [id number] [place] [address] 44517- 2980 Dec, [place] [id number] [place] [address] 32329- 4343 Nov, [place] [id number] [place] [address] 21274- 4276 Nov, [place] [address] 49537- 3824 Nov, [place] [address] 19117- 5049 Nov, Diabetes with neurological manifestations, type II or unspecified type, not stated as uncontrolled 250.60 ; Hyperlipidemia 272.4 ; Allergic rhinitis, cause unspecified 477.9 and Depression 311 [facility] [address] [id number] [place] [address]- 0015 Sep, [facility] [address] [id number] [place] [address]- 8433 Sep, [facility] [address] [id number] [place] [address]- 8034 Sep, [facility] [address] [id number] [place] [address], [place] [address]- 1879 Sep, Depression 311 and Diabetes type 2, uncontrolled 250.02 [facility] [address] [id number] [place] [address], [place] [address]- 6310 August, [facility] [address] [facility] [id number] [place] [address]- 3479 Jul, [facility] [address] [place] [address], [place] [address]- 5160 Jul, [facility] [address] [id number] [place] [address]- 6342 Apr, [facility] [address] [id number] [place] [address]- 7771 Apr, [facility] [id number] [place] [address]- 2785 Apr, [facility] [id number] [address]- 9734 Apr, [facility] [address] [facility] [id number] [place] [address]- 5979 Jan, [facility] [address] [id number] [place] [address]- 0736 Jan, [facility] [address] [facility] [id number] [place] [address]- 7849 Nov, [facility] [id number] [place] [address]- 0398 Nov, [facility] [place] [facility] [address] [id number] [place] [address]- 4281 Nov, [facility] [place] [facility] [address] [id number] [place] [address]- 8464 Nov, [facility] [place] [facility] [address] [id number] [place] [address]- 1311 Nov, [facility] [place] [facility] [address] [id number] [place] [address]- 4195 Nov, [facility] [place] [facility] [address] [id number] [place] [address]- 6908 Nov, [facility] [place] [facility] [address] [id number] [place] [address]- 1677 Nov, [facility] [place] [facility] [address] [id number] [place] [address]- 3494 August, [facility] [place] [facility] [address] [id number] [place] [address]- 3750 August, [facility] [place] [facility] [address] [id number] [place] [address]- 8667 August, [facility] [place] [facility] [address] [id number] [place] [address]- 8341 August, [facility] [place] [facility] [address] [id number] [place] [address]- 3912 August, [facility] [place] [facility] [address] [id number] [place] [address]- 3151 May, [facility] [place] [facility] [address] [id number] [place] [address]- 7017 May, [facility] [place] [facility] [address] [id number] [place] [address]- 2797 May, [facility] [place] [facility] [address] [id number] [place] [address]- 6164 May, [facility] [place] [facility] [address] [id number] [place] [address]- 0105 Apr, [facility] [place] [facility] [address] [id number] [place] [address]- 7822 Apr, [facility] [place] [facility] [address] [id number] [place] [address]- 1994 Jan, [facility] [place] [facility] [address] [id number] [place] [address]- 5826 Jan, [facility] [place] [facility] [address] [id number] [place] [address]- 3377 Jan, [facility] [place] [facility] [address] [id number] [place] [address]- 7973 Jan, [facility] [place] [facility] [address] [id number] [place] [address]- 6317 Jan, [facility] [place] [facility] [address] [id number] [place] [address]- 0436 Dec, [facility] [place] [facility] [address] [id number] [place] [address]- 2333 30 Dec, 2012 [facility] [place] [facility] [address] [id number] [place] [address]- 4298 Dec, [facility] [place] [facility] [address] [id number] [place] [address]- 1192 Dec, [facility] [place] [facility] [address] [id number] [place] [address]- 5596 Dec, [facility] [place] [facility] [address] [id number], [place] [address]- 6716 Nov, [facility] [place] [facility] [address] [id number] [place] [address]- 6455 Nov, [facility] [place] [facility] [address] [id number] [place] [address]- 9604 Nov, [facility] [place] [facility] [address] [id number] [place] [address]- 2809 Nov, [facility] [place] [facility] [address] [facility] [id number] [place] [address]- 9471 Nov, [facility] [address] [facility] [id number] [place] [address]- 9066 Nov, IMMUNIZATIONS No Known Immunizations SOCIAL HISTORY Never Assessed REASON FOR VISIT Requests return call PLAN OF CARE VITAL SIGNS MEDICATIONS Unknown Medications RESULTS No Results PROCEDURES No Known procedures INSTRUCTIONS MEDICATIONS ADMINISTERED No Known Medications MEDICAL (GENERAL) HISTORY Type Description Date Medical History DM Medical History Depression Medical History Diabetic Neuropathy Medical History Allergies Medical History Porokeratosis Medical History Plantar wart Medical History 05/2017- Negative exercise stress test Dr Perdomo Hospitalization History [facility]- dx'd w/ DM 2008 Hospitalization History WENT TO ER FOR COLD S/S 09/07/14 Hospitalization History HTN, went to ER May 18, 2017
--- OUTSIDE RECORDS SUMMARY | 2018-01-12 16:07 | XMS REPORT ---
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 Active Problem Essential hypertension I10 Active 77518218 Problem Acute idiopathic gout involving toe of right foot M10.071 Active 89002814 Problem Major depressive disorder, single episode, unspecified F32.9 Active 04564455 Problem Anxiety F41.9 Active 63358311 Problem Neuropathy G62.9 Active 773437874 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 Active 700907500 Problem Acute nonseasonal allergic rhinitis due to pollen J30.1 Active 08816995 Problem Non compliance w medication regimen Z91.14 Active 991916402 Problem Non compliance with medical treatment Z91.19 Active 3689882 Problem Abnormal CBC R79.89 Active 580692409 Problem Impotence N52.9 Active 583371937 Problem Type 2 diabetes mellitus with diabetic neuropathy E11.40 Active 5026312870449 Problem Mixed hyperlipidemia E78.2 Active 173381806 ALLERGIES Substance Reaction Event Type Date Status Lisinopril hypotension Drug Allergy Jan, Active ENCOUNTERS Encounter Location Date Diagnosis [facility] [address] [facility] [id number], [place] [address] Sep, [facility] [address] [facility] [id number], [place] [address] August, [facility] [address] [facility] [id number], [place] [address] August, Type 2 diabetes mellitus with diabetic neuropathy E11.40 ; Mixed hyperlipidemia E78.2 ; Essential hypertension I10 ; Acute idiopathic gout involving toe of right foot M10.071 ; Neuropathy G62.9 and Major depressive disorder, single episode, unspecified F32.9 [place] [id number] [place] [address] 64208- 2116 August, [place] [id number] [place] [address] 01575- 9132 Jul, Essential hypertension I10 ; Neuropathy G62.9 and Musculoskeletal pain M79.1 [place] [address] [address] 14 May, 2017 [place] [address] [address] 09 May, 2017 Type 2 diabetes mellitus with diabetic neuropathy E11.40 ; 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 ; Essential hypertension I10 ; Mixed hyperlipidemia E78.2 ; Non compliance w medication regimen Z91.14 ; Non compliance with medical treatment Z91.19 ; Injury of right thumb, initial encounter S69.91XA and Major depressive disorder, single episode, unspecified F32.9 [place] [id number] [place] [address] 69456- 6341 08 May, 2017 [place] [id number] [place] [address] 30173- 7697 May, [place] [id number] [place] [address] 36091- 6676 May, Chest pain, unspecified type R07.9 and Type 2 diabetes mellitus with diabetic neuropathy E11.40 [place] [id number] [place] [address] 64605- 1276 May, [place] [address] [address]- 295[address] Feb, Abnormal CBC R79.89 [place] [address] 8[address]19- 8648 08 Feb, 2017 [place] [address] [address]- [address] Jan, Type 2 diabetes mellitus with diabetic neuropathy E11.40 ; Mixed hyperlipidemia E78.2 ; Neuropathy G62.9 ; Osteoarthritis, unspecified osteoarthritis type, unspecified site M19.90 ; Acute nonseasonal allergic rhinitis due to pollen J30.1 ; Impotence N52.9 ; Anxiety F41.9 ; Essential hypertension I10 and Non compliance w medication regimen Z91.14 [facility] [id number] [place] [address] 51087- 4360 Oct, [facility] [id number] [place] [address] 64182 -8889 Sep, Type 2 diabetes mellitus with diabetic neuropathy E11.40 ; Non compliance w medication regimen Z91.14 ; Non compliance with medical treatment Z91.19 and Foot pain, left M79.672 [place] [id number] [place] [address] 96995- 0101 Jul, [facility] [id number] [place] [address]- 1972 Jul, [place] [id number] [place] [address] 87798- 0243 May, Anxiety F41.9 ; Type 2 diabetes mellitus with diabetic neuropathy E11.40 ; Non compliance w medication regimen Z91.14 ; Mixed hyperlipidemia E78.2 and Essential hypertension I10 [facility] [id number] [place] [address] 88064- 7373 Apr, Osteoarthritis, unspecified osteoarthritis type, unspecified site M19.90 [place] [id number] [place] [address] 28474- 0291 Apr, [place] [id number] [place] [address] 02724- 0916 Apr, Type 2 diabetes mellitus with diabetic neuropathy E11.40 ; Non compliance w medication regimen Z91.14 ; Mixed hyperlipidemia E78.2 ; Essential hypertension I10 ; Plantar wart B07.0 and Anxiety F41.9 [place] [id number] [place] [address] 64448- 8478 Apr, [place] [address] 07755- 5569 Apr, [facility] [id number] [place] [address] 90086- 4795 Mar, Osteoarthritis, unspecified osteoarthritis type, unspecified site M19.90 and Impotence N52.9 [place] [address] 72171- 8073 Mar, [place] [address] 44657- 1585 Mar, Type 2 diabetes mellitus with diabetic neuropathy E11.40 ; Anxiety F41.9 and Intractable vomiting with nausea, unspecified vomiting type R11.2 [place] [id number] [place] [address] 59454- 6760 Mar, Type 2 diabetes mellitus with diabetic neuropathy E11.40 and Intractable vomiting with nausea, unspecified vomiting type R11.2 [place] [id number] [place] [address] 05434- 5550 Feb, Porokeratosis Q82.8 and Type 2 diabetes mellitus with diabetic neuropathy E11.40 [place] [id number] [place] [address] 84138- 9542 Jan, [place] [id number] [place] [address] 38095- 5435 Dec, [place] [id number] [place] [address] 56058- 7773 Dec, Type 2 diabetes mellitus with diabetic neuropathy E11.40 ; Non compliance w medication regimen Z91.14 ; Impotence N52.9 ; Essential hypertension I10 ; Hyperlipidemia E78.5 ; Neuropathy G62.9 ; 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 and Plantar wart B07.0 [place] [id number] [place] [address] 60142- 9913 Dec, [place] [id number] [place] [address] 33812- 2967 Nov, Dental examination Z01.20 [place] [id number] [place] [address] 20048- 9004 Oct, Osteoarthritis, unspecified osteoarthritis type, unspecified site M19.90 ; Type 2 diabetes mellitus with diabetic neuropathy E11.40 ; Impotence N52.9 ; Mixed hyperlipidemia E78.2 ; Hyperlipidemia E78.5 ; Essential hypertension I10 and Plantar wart B07.[address] [address]- [address]26 Sep, [address] [address]- [address] August, Abnormal thyroid blood test R94.[address] 30661- 4561 August, Dental examination Z01.20 [place] [id number] [place] [address] 58710- 1041 August, Type 2 diabetes mellitus with diabetic neuropathy E11.40 ; Non compliance w medication regimen Z91.14 ; Impotence N52.9 ; Mixed hyperlipidemia E78.2 ; Abscessed tooth K04.7 and Shoulder pain, left M25.512 [place] [id number] [place] [address] 07345- 3845 May, Type 2 diabetes mellitus with diabetic neuropathy E11.40 ; Non compliance w medication regimen Z91.14 ; Non compliance with medical treatment Z91.19 ; Shoulder pain, left M25.512 ; General medical exam Z00.00 ; Impotence N52.9 and Hyperlipidemia E78.5 [place] [id number] [place] [address] 14377- 7004 Jan, Type 2 diabetes mellitus with diabetic neuropathy E11.40 ; Noncompliance w/medication treatment due to intermit use of medication Z91.14 and Impotence N52.[address] [id number], [place] [address] Jan, [facility] [address], [place] [address] Dec, [facility] [address], [place] [address] 4816 Nov, [facility] [id number] [place] [address] 92607- 7188 Nov, [facility] [address], [place] [address] 3063 Nov, [facility] [id number] [place] [address] 95192- 8886 Nov, Diabetes with neurological manifestations, type II or unspecified type, not stated as uncontrolled 250.60 ; Hyperlipidemia 272.4 ; Allergic rhinitis, cause unspecified 477.9 and Depression 311 [facility] [id number] [place] [address] 52153- 5753 Sep, [facility] [address], [place] [address] 6[address] Sep, [facility] [address], [place] [address]- 2476 Sep, [facility] [address], [place] [address]- 1878 Sep, Depression 311 and Diabetes type 2, uncontrolled 250.02 [facility] [address], [place] [address] 4[address] August, [facility] [address], [place] [address]- 7809 Jul, [facility] [address], [place] [address]- 1216 Jul, [facility] [address], [place] [address]- 4055 Apr, [facility] [address] [place] [address] 4266 Apr, [facility] [address] [id number] [place] [address]- 4798 Apr, [facility] [place] [facility] [address] [id number] [place] [address]- 9597 Apr, [facility] [address] [id number] [place] [address]- 6184 Jan, [facility] [place] [facility] [address] [id number] [place] [address]- 4969 Jan, [facility] [place] [facility] [address] [id number] [place] [address]- 9952 Nov, [facility] [place] [facility] [address] [id number] [place] [address]- 3908 Nov, [facility] [place] [facility] [address] [id number] [place] [address]- 6315 Nov, [facility] [address] [id number] [place] [address]- 6132 Nov, [facility] [place] [facility] [address] [id number] [place] [address]- 2746 Nov, [facility] [place] [facility] [address] [id number] [place] [address]- 2579 Nov, [facility] [place] [facility] [address] [id number] [place] [address]- 7602 Nov, [facility] [place] [facility] [address] [id number] [place] [address]- 5675 Nov, [facility] [place] [facility] [address] [id number] [place] [address]- 2307 August, [facility] [place] [facility] [address] [id number] [place] [address]- 8151 August, [facility] [place] [facility] [address] [id number] [place] [address]- 4191 August, [facility] [address] [id number] [place] [address]- 4447 August, [facility] [place] [facility] [address] [id number] [place] [address]- 0793 August, [facility] [place] [facility] [address] [id number] [place] [address]- 6975 May, [facility] [place] [facility] [address] [id number] [place] [address]- 5449 May, [facility] [place] [facility] [address] [id number] [place] [address]- 5551 May, [facility] [place] [facility] [address] [id number] [place] [address]- 8608 May, [facility] [place] [facility] [address] [id number] [place] [address]- 9593 Apr, [facility] [place] [facility] [address] [id number] [place] [address]- 7067 Apr, [facility] [place] [facility] [address] [id number] [place] [address]- 6548 Jan, [facility] [place] [facility] [address] [id number] [place] [address]- 6164 Jan, [facility] [place] [facility] [address] [id number], [place] [address]- 8750 Jan, [facility] [place] [facility] [address] [id number], [place] [address]- 6920 Jan, [facility] [place] [facility] [address] [id number] [place] [address] Jan, [facility] [place] [facility] [address] [id number] [place] [address] Dec, [facility] [place] [facility] [address] [id number] [place] [address]- 8192 Dec, [facility] [place] [facility] [address] [id number], [place] [address]- 8828 Dec, [facility] [address] [address] Dec, [facility] [address], [place] [address]- 7512 Dec, [facility] [address], [place] [address]- 4809 Nov, [facility] [address], [place] [address]- 3502 Nov, [facility] [address], [place] [address]- 5486 Nov, [facility] [address], [place] [address]- 2147 Nov, [facility] [address], [place] [address]- 8135 Nov, [facility] [address] [id number], [place] [address]- 1114 Nov, IMMUNIZATIONS No Known Immunizations SOCIAL HISTORY Never Assessed REASON FOR VISIT wart bottom left foot---FADUMO Rubio, went to ED and was told it was a plantar wart and states he went [facility] and bought some medication to freeze PLAN OF CARE Activity Details Follow Up 3 Months Reason:chm/dm VITAL SIGNS Height 68 in 2017-02-04 Weight 153.4 lbs 2017-02-04 Temperature 97.8 degrees Fahrenheit 2017-02-04 Heart Rate 66 bpm 2017-02-04 Respiratory Rate 18 2017-02-04 BMI 23.32 kg/m2 2017-02-04 Blood pressure systolic 133 mmHg 2017-02-04 Blood pressure diastolic 86 mmHg 2017-02-04 MEDICATIONS Medication Instructions Dosage Frequency Start Date End Date Duration Status Simvastatin 20 mg Orally Once a day at bedtime 1 tablet by Oral route 1 time per day Jan, 90 days Active Sertraline HCl 50 mg Orally Once a day 1 tablet 24h May, 90 days Active Cozaar 25 MG Orally Once a day 0.5 tablet 24h Jan, 90 days Active Levemir Flexpen 100 UNIT/ML Subcutaneous--per insulin sliding scale protocol 2 times a day 40 units 12h 120 days Active BusPIRone HCl 10 mg Orally Twice a day 1 tablet 12h Mar, 90 days Active MetFORMIN HCl ER (MOD) 500 MG Orally 2 times a day with meal 2 tablets twice day with meals May, 90 days Active Glucocard Expression Test 1 kit In Vitro 3 times a day test 3 times per day 8h May, 12 months Active Reglan 10 MG Orally 3 times a day, ac 1 Mar, Active Gabapentin 100 mg Orally Once a day at bedtime as directed May, Active GlipiZIDE 10 MG Orally 2 times a day 1 tablets 12h Jan, 90 days Active Cetirizine HCl 10 mg Orally Once a day 1 tablet 24h Jan, Apr, 90 days Active Pen [place] 32G X 4 MM 1 12h 120 days Active RESULTS Name Result Date Reference Range LIPID PANEL 2017-02-04 Cholesterol, Total 118 100-199 Triglycerides 73 0-149 HDL Cholesterol 70 >39 VLDL Cholesterol Elie 15 5-40 LDL Cholesterol Calc 33 0-99 CMP 2017-02-04 Glucose, Serum 299 65-99 BUN 10 6-24 Creatinine, Serum 0.69 0.76-1.27 eGFR If NonAfricn Am 114 >59 eGFR If Africn Am 132 >59 BUN/Creatinine Ratio 14 9-20 Sodium, Serum 143 134-144 Potassium, Serum 4.5 3.5-5.2 Chloride, Serum 101 96-106 Carbon Dioxide, Total 27 18-29 Calcium, Serum 9.2 8.7-10.2 Protein, Total, Serum 6.7 6.0-8.5 Albumin, Serum 4.0 3.5-5.5 Globulin, Total 2.7 1.5-4.5 A/G Ratio 1.5 1.2-2.2 Bilirubin, Total 0.5 0.0-1.2 Alkaline Phosphatase, S 84 39-117 AST (SGOT) 24 0-40 ALT (SGPT) 22 0-44 CBC 2017-02-04 WBC 3.2 3.4-10.8 RBC 3.24 4.14-5.80 Hemoglobin 11.4 12.6-17.7 Hematocrit 34.0 37.5-51.0 MCV 105 79-97 MCH 35.2 26.6-33.0 MCHC 33.5 31.5-35.7 RDW 13.0 12.3-15.4 Platelets 211 150-379 Neutrophils 48 Not Estab. Lymphs 39 Not Estab. Monocytes 11 Not Estab. Eos 2 Not Estab. Basos 0 Not Estab. Neutrophils (Absolute) 1.5 1.4-7.0 Lymphs (Absolute) 1.3 0.7-3.1 Monocytes(Absolute) 0.4 0.1-0.9 Eos (Absolute) 0.1 0.0-0.4 Baso (Absolute) 0.0 0.0-0.2 Immature Granulocytes 0 Not Estab. Immature Grans (Abs) 0.0 0.0-0.1 THYROID ANALYZER 2017-02-04 TSH 1.470 0.450-4.500 A1C 2017-02-04 Hemoglobin A1c 7.2 4.8-5.6 PROCEDURES Procedure Date Ordered Result Body Site Hemoglobin Test Send Out 0 dollar Feb 04, 2017 COMPLETE CBC W/AUTO DIFF WBC Feb 04, 2017 VENIPUNCT, ROUTINE* Feb 04, 2017 LIPID PANEL Feb 04, 2017 COMPREHEN METABOLIC PANEL Feb 04, 2017 ASSAY THYROID STIM HORMONE Feb 04, 2017 INSTRUCTIONS MEDICATIONS ADMINISTERED No Known Medications MEDICAL (GENERAL) HISTORY Type Description Date Medical History DM Medical History Depression Medical History Diabetic Neuropathy Medical History Allergies Medical History Porokeratosis Medical History Plantar wart Medical History 05/2017- Negative exercise stress test Dr Perdomo Hospitalization History [facility]- dx'd w/ DM 2008 Hospitalization History WENT TO ER FOR COLD S/S 09/07/14 Hospitalization History HTN, went to ER May 18, 2017
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
--- OUTSIDE RECORDS SUMMARY | 2018-01-12 16:08 | XMS REPORT ---
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19 Active 0270233 Problem Abnormal CBC R79.89 Active 419049551 Problem Impotence N52.9 Active 742798116 Problem Type 2 diabetes mellitus with diabetic neuropathy E11.40 Active 3895858720135 Problem Mixed hyperlipidemia E78.2 Active 042990382 ALLERGIES No Information ENCOUNTERS Encounter Location Date Diagnosis [facility], [place] [address] [address] Nov, [facility], [place] [address] [address] Oct, [facility] [address] [address] Oct, [facility] [address] [address] August, [facility], [place] [id number] [place] [address]338- [address]33 15 Aug, 2017 Type 2 diabetes mellitus with diabetic neuropathy E11.40 ; Mixed hyperlipidemia E78.2 ; Essential hypertension I10 ; Acute idiopathic gout involving toe of right foot M10.071 ; Neuropathy G62.9 and Major depressive disorder, single episode, unspecified F32.9 [place] [id number] [place] [address]69- [address]226 August, [place] [address] [address] 10 Jul, 2017 Essential hypertension I10 ; Neuropathy G62.9 and Musculoskeletal pain M79.1 [place] [address] [address]- [address] 14 May, 2017 [place] [id number] [place] [address] 20900- 8292 09 May, 2017 Type 2 diabetes mellitus with diabetic neuropathy E11.40 ; [facility] (current) use of insulin Z79.4 ; Essential hypertension I10 ; Mixed hyperlipidemia E78.2 ; Non compliance w medication regimen Z91.14 ; Non compliance with medical treatment Z91.19 ; Injury of right thumb, initial encounter S69.91XA and Major depressive disorder, single episode, unspecified F32.9 [place] [id number] [place] [address] 83963- 7023 08 May, 2017 [place] [id number] [place] [address] 96046- 6216 May, [place] [id number] [place] [address] 24916- 2557 May, Chest pain, unspecified type R07.9 and Type 2 diabetes mellitus with diabetic neuropathy E11.40 [place] [id number] [place] [address] 36391- 3066 May, [place] [id number] [place] [address] 18562- 7751 Feb, Abnormal CBC R79.89 [facility], [place] [address] [address] Feb, [facility] [place] [id number] [place] [address] 90857- 6367 Jan, Type 2 diabetes mellitus with diabetic neuropathy E11.40 ; Mixed hyperlipidemia E78.2 ; Neuropathy G62.9 ; Osteoarthritis, unspecified osteoarthritis type, unspecified site M19.90 ; Acute nonseasonal allergic rhinitis due to pollen J30.1 ; Impotence N52.9 ; Anxiety F41.9 ; Essential hypertension I10 and Non compliance w medication regimen Z91.14 [facility], [place] [id number] [place] [address] 03694- 0962 Oct, [facility] [id number] [place] [address] 62862 -6845 Sep, Type 2 diabetes mellitus with diabetic neuropathy E11.40 ; Non compliance w medication regimen Z91.14 ; Non compliance with medical treatment Z91.19 and Foot pain, left M79.672 [facility], [place] [id number] [place] [address] 18103- 5681 Jul, [facility], [place] [id number] [place] [address] 53664- 3379 Jul, [facility], [place] [id number] [place] [address] 42165- 5130 May, Anxiety F41.9 ; Type 2 diabetes mellitus with diabetic neuropathy E11.40 ; Non compliance w medication regimen Z91.14 ; Mixed hyperlipidemia E78.2 and Essential hypertension I10 [facility], [place] [address] [address] Apr, Osteoarthritis, unspecified osteoarthritis type, unspecified site M19.90 [facility], [place] [id number] [place] [address] 15855- 5476 Apr, [facility], [place] [id number] [place] [address] 46003- 1906 Apr, Type 2 diabetes mellitus with diabetic neuropathy E11.40 ; Non compliance w medication regimen Z91.14 ; Mixed hyperlipidemia E78.2 ; Essential hypertension I10 ; Plantar wart B07.0 and Anxiety F41.9 [place] [id number] [place] [address] 79443- 4576 Apr, [place] [id number] [place] [address] 96443- 7723 Apr, [place] [id number] [place] [address] 35842- 1962 Mar, Osteoarthritis, unspecified osteoarthritis type, unspecified site M19.90 and Impotence N52.9 [place] [id number] [place] [address] 98492- 1929 Mar, [place] [id number] [place] [address] 01927- 7979 Mar, Type 2 diabetes mellitus with diabetic neuropathy E11.40 ; Anxiety F41.9 and Intractable vomiting with nausea, unspecified vomiting type R11.2 [place] [id number] [place] [address] 35442- 0669 Mar, Type 2 diabetes mellitus with diabetic neuropathy E11.40 and Intractable vomiting with nausea, unspecified vomiting type R11.2 [place] [id number] [place] [address] 06966- 1634 Feb, Porokeratosis Q82.8 and Type 2 diabetes mellitus with diabetic neuropathy E11.40 [place] [id number] [place] [address] 36383- 0908 Jan, [place] [id number] [place] [address] 60449- 4030 Dec, [place] [id number] [place] [address] 31072- 3384 Dec, Type 2 diabetes mellitus with diabetic neuropathy E11.40 ; Non compliance w medication regimen Z91.14 ; Impotence N52.9 ; Essential hypertension I10 ; Hyperlipidemia E78.5 ; Neuropathy G62.9 ; 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 and Plantar wart B07.0 [place] [id number] [place] [address] 61833- 4179 Dec, [place] [id number] [place] [address] 73149- 8544 Nov, Dental examination Z01.20 [place] [address] 7[address]- 1456 Oct, Osteoarthritis, unspecified osteoarthritis type, unspecified site M19.90 ; Type 2 diabetes mellitus with diabetic neuropathy E11.40 ; Impotence N52.9 ; Mixed hyperlipidemia E78.2 ; Hyperlipidemia E78.5 ; Essential hypertension I10 and Plantar wart B07.0 [place] [address] 79356- 6042 Sep, [place] [address] 44566- 1533 August, Abnormal thyroid blood test R94.6 [place] [id number] [place] [address] 81546- 4345 August, Dental examination Z01.20 [place] [address] [address]76- 1308 17 Aug, 2015 Type 2 diabetes mellitus with diabetic neuropathy E11.40 ; Non compliance w medication regimen Z91.14 ; Impotence N52.9 ; Mixed hyperlipidemia E78.2 ; Abscessed tooth K04.7 and Shoulder pain, left M25.512 [place] [id number] [place] [address] 76236- 4729 12 May, 2015 Type 2 diabetes mellitus with diabetic neuropathy E11.40 ; Non compliance w medication regimen Z91.14 ; Non compliance with medical treatment Z91.19 ; Shoulder pain, left M25.512 ; General medical exam Z00.00 ; Impotence N52.9 and Hyperlipidemia E78.5 [place] [id number] [place] [address] 31270- 0497 Jan, Type 2 diabetes mellitus with diabetic neuropathy E11.40 ; Noncompliance w/medication treatment due to intermit use of medication Z91.14 and Impotence N52.9 [facility], [place] [id number] [place] [address] 90935- 4050 Jan, [facility], [place] [id number] [place] [address] 42651- 9455 Dec, [facility], [place] [id number] [place] [address] 68608- 7345 Nov, [facility], [place] [id number] [place] [address] 95383- 3395 Nov, [facility], [place] [id number] [place] [address] 78408- 3053 Nov, [facility] [place] [id number] [place] [address] 47441- 6677 Nov, Diabetes with neurological manifestations, type II or unspecified type, not stated as uncontrolled 250.60 ; Hyperlipidemia 272.4 ; Allergic rhinitis, cause unspecified 477.9 and Depression [address] [place] [id number] [place] [address] 09893- 2306 Sep, [facility] [place] [id number] [place] [address] 08360- 6205 Sep, [facility] [place] [id number] [place] [address] 72907- 1288 Sep, [facility] [place] [id number] [place] [address] 88393- 5834 Sep, Depression 311 and Diabetes type 2, uncontrolled 250.02 [facility], [place] [id number] [place] [address] 61034- 9931 August, [facility], [place] [id number] [place] [address] 60135- 2094 Jul, [facility], [place] [id number] [place] [address] 23147- 7643 Jul, [facility] [place] [facility] [address] [id number] [place] [address]- 9762 Apr, [facility] [place] [facility] [address] [id number] [place] [address]- 2078 Apr, [facility] [place] [facility] [address] [id number] [place] [address]- 7807 Apr, [facility] [place] [facility] [address] [id number] [place] [address]- 6003 Apr, [facility] [place] [facility] [address] [id number] [place] [address]- 3252 Jan, [facility] [place] [facility] [address] [id number] [place] [address]- 6364 Jan, [facility] [place] [facility] [address] [id number] [place] [address]- 3020 Nov, [facility] [place] [facility] [address] [id number] [place] [address]- 8861 Nov, [facility] [place] [facility] [address] [id number] [place] [address]- 3576 Nov, [facility] [place] [facility] [address] [id number] [place] [address]- 9291 Nov, [facility] [place] [facility] [address] [id number] [place] [address]- 3286 Nov, [facility] [place] [facility] [address] [id number] [address]- 7086 Nov, [facility] [place] [facility] [address] [id number] [place] [address]- 6898 Nov, [facility] [place] [facility] [address] [id number] [place] [address]- 4581 Nov, [facility] [place] [facility] [address] [id number] [place] [address]- 8550 August, [facility] [place] [facility] [address] [id number] [place] [address]- 3726 August, [facility] [place] [facility] [address] [id number] [place] August, [facility] [place] [facility] [address] [id number] [place] 8116 August, [facility] [place] [facility] [address] [id number] [place] [address]- 5092 August, [facility] [place] [facility] [address] [id number] [place] [address]- 6422 May, [facility] [place] [facility] [address] [id number] [place] [address]- 2012 May, [facility] [place] [facility] [address] [id number] [place] [address]- 0111 May, [facility] [place] [facility] [address] [id number] [place] [address]- 9307 May, [facility] [place] [facility] [address] [id number] [place] [address]- 8251 Apr, [facility] [place] [facility] [address] [id number] [place] [address]- 4254 Apr, [facility] [place] [facility] [address] [id number] [place] [address]21 Jan, [facility] [place] [facility] [address] [id number] [place] [address]- 9688 Jan, [facility] [place] [facility] [address] [id number] [place] [address]- 7581 Jan, [facility] [place] [facility] [address] [id number] [place] [address]- 4939 Jan, [facility] [place] [facility] [address] [id number] [place] [address]- 2546 Jan, [facility] [place] [facility] [address] [id number] [place] [address]- 2709 Dec, [facility] [place] [address] [facility] [id number] [address]- 5343 Dec, 2012 [facility] [place] [address] [facility] [id number] [place] [address]- 9007 Dec, [facility] [place] [address] [facility] [id number] [address]- 7875 Dec, [facility] [place] [address] [facility] [id number] [address]- 2039 Dec, [facility] [place] [address] [facility] [id number] [place] [address]- 3215 Nov, [facility] [place] [address] [facility] [id number] [place] [address]- 7310 Nov, [facility] [place] [address] [address]- 8992 Nov, [facility] [place] [address] [address]- 1006 Nov, [facility] [place] [address] [address]- 9446 Nov, [facility] [place] [id number] [address]- 1713 Nov, IMMUNIZATIONS No Known Immunizations SOCIAL HISTORY Never Assessed REASON FOR VISIT Disability Paperwork PLAN OF CARE VITAL SIGNS MEDICATIONS Unknown [...]
--- OUTSIDE RECORDS SUMMARY | 2018-01-12 16:09 | XMS REPORT ---
Author Author SARAH SAGE Organization [facility] Address [address] 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 Active Problem Essential hypertension I10 Active 43096375 Problem Acute idiopathic gout involving toe of right foot M10.071 Active 54382725 Problem Major depressive disorder, single episode, unspecified F32.9 Active 71904804 Problem Anxiety F41.9 Active 53710433 Problem Neuropathy G62.9 Active 224388001 Problem [facility]FP (current) use of insulin Z79.4 Active 884383793 Problem Acute nonseasonal allergic rhinitis due to pollen J30.1 Active 74938933 Problem Non compliance w medication regimen Z91.14 Active 565204442 Problem Non compliance with medical treatment Z91.19 Active 3417971 Problem Abnormal CBC R79.89 Active 059194531 Problem Impotence N52.9 Active 315678234 Problem Type 2 diabetes mellitus with diabetic neuropathy E11.40 Active 5895065411296 Problem Mixed hyperlipidemia E78.2 Active 061053175 ALLERGIES No Information ENCOUNTERS Encounter Location Date Diagnosis [facility] [id number] [address] Nov, [facility] [id number], [place] [address] August, [facility] [id number] [place] [address]67- [address] August, Type 2 diabetes mellitus with diabetic neuropathy E11.40 ; Mixed hyperlipidemia E78.2 ; Essential hypertension I10 ; Acute idiopathic gout involving toe of right foot M10.071 ; Neuropathy G62.9 and Major depressive disorder, single episode, unspecified F32.9 [address] [id number] [place] [address]45- 0971 August, [place] [id number] [place] [address] 10931- 8274 Jul, Essential hypertension I10 ; Neuropathy G62.9 and Musculoskeletal pain M79.1 [address] [address] [address]- [address] 14 May, 2017 [place] [id number] [place] [address] 77414- 0072 09 May, 2017 Type 2 diabetes mellitus with diabetic neuropathy E11.40 ; 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 ; Essential hypertension I10 ; Mixed hyperlipidemia E78.2 ; Non compliance w medication regimen Z91.14 ; Non compliance with medical treatment Z91.19 ; Injury of right thumb, initial encounter S69.91XA and Major depressive disorder, single episode, unspecified F32.9 [place] [id number] [place] [address]30- 3967 08 May, 2017 [address] [address] [address]- [address]65 May, [place] [id number] [place] [address] 79379- 0295 May, Chest pain, unspecified type R07.9 and Type 2 diabetes mellitus with diabetic neuropathy E11.40 [place] [id number] [place] [address] 15224- 4101 May, [place] [id number] [place] [address] 85109- 6615 Feb, Abnormal CBC R79.89 [address] [address] 96673- 3142 Feb, [place] [id number] [place] [address] 50596- 5768 Jan, Type 2 diabetes mellitus with diabetic neuropathy E11.40 ; Mixed hyperlipidemia E78.2 ; Neuropathy G62.9 ; Osteoarthritis, unspecified osteoarthritis type, unspecified site M19.90 ; Acute nonseasonal allergic rhinitis due to pollen J30.1 ; Impotence N52.9 ; Anxiety F41.9 ; Essential hypertension I10 and Non compliance w medication regimen Z91.14 [facility] [id number] [place] [address]10- 3604 Oct, [facility] [id number] [place] [address]70 [address] Sep, Type 2 diabetes mellitus with diabetic neuropathy E11.40 ; Non compliance w medication regimen Z91.14 ; Non compliance with medical treatment Z91.19 and Foot pain, left M79.672 [facility] [id number] [place] [address] 13004- 2306 Jul, [facility] [address] [address]- [address]605 Jul, [place] [id number] [place] [address] 54018- 3579 May, Anxiety F41.9 ; Type 2 diabetes mellitus with diabetic neuropathy E11.40 ; Non compliance w medication regimen Z91.14 ; Mixed hyperlipidemia E78.2 and Essential hypertension I10 [facility] [id number] [place] [address] 31595- 3515 Apr, Osteoarthritis, unspecified osteoarthritis type, unspecified site M19.90 [facility] [id number] [place] [address] 43188- 9890 Apr, [facility] [id number] [place] [address] 90141- 3931 Apr, Type 2 diabetes mellitus with diabetic neuropathy E11.40 ; Non compliance w medication regimen Z91.14 ; Mixed hyperlipidemia E78.2 ; Essential hypertension I10 ; Plantar wart B07.0 and Anxiety F41.9 [facility] [id number] [place] [address] 29820- 7832 Apr, [facility] [id number] [place] [address] 53675- 0390 Apr, [place] [id number] [place] [address] 69246- 4919 Mar, Osteoarthritis, unspecified osteoarthritis type, unspecified site M19.90 and Impotence N52.9 [place] [address] 36554- 0686 Mar, [place] [address] 7[address]34- 8847 Mar, Type 2 diabetes mellitus with diabetic neuropathy E11.40 ; Anxiety F41.9 and Intractable vomiting with nausea, unspecified vomiting type R11.2 [place] [id number] [place] [address] 12150- 3825 Mar, Type 2 diabetes mellitus with diabetic neuropathy E11.40 and Intractable vomiting with nausea, unspecified vomiting type R11.2 [place] [address] 33409- 4862 Feb, Porokeratosis Q82.8 and Type 2 diabetes mellitus with diabetic neuropathy E11.40 [place] [id number] [place] [address] 62467- 5807 Jan, [place] [id number] [place] [address] 65898- 4432 Dec, [place] [address] 70416- 7569 Dec, Type 2 diabetes mellitus with diabetic neuropathy E11.40 ; Non compliance w medication regimen Z91.14 ; Impotence N52.9 ; Essential hypertension I10 ; Hyperlipidemia E78.5 ; Neuropathy G62.9 ; 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 and Plantar wart B07.0 [place] [id number] [place] [address] 18178- 0118 Dec, [place] [id number] [place] [address] Nov, Dental examination Z01.20 [place] [address] 7[address]52- 4937 Oct, Osteoarthritis, unspecified osteoarthritis type, unspecified site M19.90 ; Type 2 diabetes mellitus with diabetic neuropathy E11.40 ; Impotence N52.9 ; Mixed hyperlipidemia E78.2 ; Hyperlipidemia E78.5 ; Essential hypertension I10 and Plantar wart B07.0 [place] [address] [address]- [address] Sep, [place] [address] 02912- [address]254 August, Abnormal thyroid blood test R94.[address] 9[address]68- [address] August, Dental examination Z01.20 [place] [address] 64105- 5528 August, Type 2 diabetes mellitus with diabetic neuropathy E11.40 ; Non compliance w medication regimen Z91.14 ; Impotence N52.9 ; Mixed hyperlipidemia E78.2 ; Abscessed tooth K04.7 and Shoulder pain, left M25.[address] 32516- 4424 May, Type 2 diabetes mellitus with diabetic neuropathy E11.40 ; Non compliance w medication regimen Z91.14 ; Non compliance with medical treatment Z91.19 ; Shoulder pain, left M25.512 ; General medical exam Z00.00 ; Impotence N52.9 and Hyperlipidemia E78.5 [place] [address] 07140- 0647 Jan, Type 2 diabetes mellitus with diabetic neuropathy E11.40 ; Noncompliance w/medication treatment due to intermit use of medication Z91.14 and Impotence N52.9 [place] [address] 10928- 4193 Jan, [facility] [address], [place] [address] Dec, [facility] [id number] [place] [address] 97656- 1825 Nov, [facility] [address], [place] [address] Nov, [facility] [id number] [place] [address] 504343- 2373 Nov, [facility] [id number] [place] [address] 09190- 6546 Nov, Diabetes with neurological manifestations, type II or unspecified type, not stated as uncontrolled 250.60 ; Hyperlipidemia 272.4 ; Allergic rhinitis, cause unspecified 477.9 and Depression 311 [facility] [id number] [place] [address] 21922- 7662 Sep, [facility] [address], [place] [address] 0659 Sep, [facility] [address] [place] [address] 74666- 9715 Sep, [facility] [address], [place] [address] 3573 Sep, Depression 311 and Diabetes type 2, uncontrolled 250.02 [facility] [address], [place] [address] August, [facility] [address], [place] [address] 5[address] Jul, [facility] [id number] [address] 3971 Jul, [facility] [address], [place] [address] 1896 Apr, [facility] [id number] [place] [address] 32367- 9693 Apr, [facility] [place] [facility] [address] [id number] [place] [address]- 5051 Apr, [facility] [place] [facility] [address] [id number] [place] [address]- 3843 Apr, [facility] [place] [facility] [address] [id number] [place] [address]- 1033 Jan, [facility] [place] [facility] [address] [id number] [place] [address]- 9300 Jan, [facility] [place] [facility] [address] [id number] [place] [address]- 0267 Nov, [facility] [place] [facility] [address] [id number] [place] [address]- 7580 Nov, [facility] [place] [facility] [address] [id number] [place] [address]- 2820 Nov, [facility] [place] [facility] [address] [id number] [place] [address]- 2923 Nov, [facility] [place] [facility] [address] [id number] [place] [address]- 2277 Nov, [facility] [place] [facility] [address] [id number] [place] [address]- 3151 Nov, [facility] [place] [facility] [address] [id number] [place] [address]- 2879 Nov, [facility] [place] [facility] [address] [id number] [place] [address]- 0354 Nov, [facility] [place] [facility] [address] [id number] [place] [address] August, [facility] [place] [facility] [address] [id number] [place] [address]- 7066 August, [facility] [place] [facility] [address] [id number] [place] [address]- 2186 August, [facility] [place] [facility] [address] [id number] [place] [address]- 3958 August, [facility] [address] [id number] [place] [address]- 6325 August, [facility] [place] [facility] [address] [id number] [place] [address] May, [facility] [place] [facility] [address] [id number] [place] [address]- 5296 May, [facility] [place] [facility] [address] [id number] [place] [address] 2542 May, [facility] [place] [facility] [address] [id number] [place] [address]- 1735 May, [facility] [place] [facility] [address] [id number] [place] [address]- 8013 Apr, [facility] [place] [facility] [address] [id number] [place] [address]- 0309 Apr, [facility] [place] [facility] [address] [id number] [place] [address]- 1317 Jan, [facility] [place] [facility] [address] [facility] [id number] [place] [address]- 6958 Jan, [facility] [place] [facility] [address] [facility] [id number] [place] [address]- 1570 Jan, [facility] [place] [facility] [address] [id number] [place] [address] 2540 Jan, [facility] [place] [facility] [address] [id number] [place] [address]- 4894 Jan, [facility] [place] [facility] [address] [id number] [place] [address]- 7466 Dec, [facility] [place] [facility] [address] [id number] [place] [address] 2546 30 Dec, 2012 [facility] [place] [facility] [address] [id number] [place] [address] Dec, [facility] [address] [facility] [id number] [address]- [address] Dec, [facility] [address] [facility] [id number] [address]- 4227 Dec, [facility] [address] [facility] [id number] [address]- [address] Nov, [facility] [address] [facility] [id number] [address]- 0058 Nov, [facility] [address] [facility] [id number] [address]- 5270 Nov, [facility] [address] [facility] [id number] [address]- 5294 Nov, [facility] [address], [place] [address]- 7039 Nov, [facility] [id number], [place] [address]- 7627 Nov, IMMUNIZATIONS No Known Immunizations SOCIAL HISTORY Never Assessed REASON FOR VISIT Chest Pain ER Visit PLAN OF CARE VITAL SIGNS MEDICATIONS Unknown Medications RESULTS Name Result Date Reference Range Exercise Treadmill Stress Test (TMST) 2017-05-27 PROCEDURES No Known procedures INSTRUCTIONS MEDICATIONS ADMINISTERED [...]
--- OUTSIDE RECORDS SUMMARY | 2018-01-12 16:09 | XMS REPORT ---
Author Author SARAH SAGE Organization [facility] Address [address] 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 Active Problem Essential hypertension I10 Active 38423971 Problem Acute idiopathic gout involving toe of right foot M10.071 Active 67565026 Problem Major depressive disorder, single episode, unspecified F32.9 Active 74183325 Problem Anxiety F41.9 Active 51790915 Problem Neuropathy G62.9 Active 032261119 Problem FPC (current) use of insulin Z79.4 Active 537433384 Problem Acute nonseasonal allergic rhinitis due to pollen J30.1 Active 59363421 Problem Non compliance w medication regimen Z91.14 Active 602760644 Problem Non compliance with medical treatment Z91.19 Active 4334182 Problem Abnormal CBC R79.89 Active 620259482 Problem Impotence N52.9 Active 404408146 Problem Type 2 diabetes mellitus with diabetic neuropathy E11.40 Active 0035993722319 Problem Mixed hyperlipidemia E78.2 Active 542946440 ALLERGIES No Information ENCOUNTERS Encounter Location Date Diagnosis [facility] [id number], [place] [address] Nov, [facility] [id number], [place] [address] August, [facility] [id number] [place] [address]348- 1553 August, Type 2 diabetes mellitus with diabetic neuropathy E11.40 ; Mixed hyperlipidemia E78.2 ; Essential hypertension I10 ; Acute idiopathic gout involving toe of right foot M10.071 ; Neuropathy G62.9 and Major depressive disorder, single episode, unspecified F32.9 [address] [facility] [id number] [place] [address] 14617- 8082 August, [facility] [id number] [place] [address] 29294- 3736 Jul, Essential hypertension I10 ; Neuropathy G62.9 and Musculoskeletal pain M79.1 [place] [address] [address]- [address]60 14 May, 2017 [facility] [id number] [place] [address] 56000- 7558 09 May, 2017 Type 2 diabetes mellitus with diabetic neuropathy E11.40 ; 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 ; Essential hypertension I10 ; Mixed hyperlipidemia E78.2 ; Non compliance w medication regimen Z91.14 ; Non compliance with medical treatment Z91.19 ; Injury of right thumb, initial encounter S69.91XA and Major depressive disorder, single episode, unspecified F32.9 [place] [facility] [id number] [place] [address] 45891- 2254 08 May, 2017 [place] [address] 7[address]67- 2175 May, [place] [facility] [id number] [place] [address] 97463- 6169 May, Chest pain, unspecified type R07.9 and Type 2 diabetes mellitus with diabetic neuropathy E11.40 [place] [facility] [id number] [place] [address] 17992- 5068 May, [facility] [facility] [id number] [place] [address] 94837- 5070 Feb, Abnormal CBC R79.89 [place] [address] 39777- 2426 Feb, [facility] [id number] [place] [address] 15256- 4565 Jan, Type 2 diabetes mellitus with diabetic neuropathy E11.40 ; Mixed hyperlipidemia E78.2 ; Neuropathy G62.9 ; Osteoarthritis, unspecified osteoarthritis type, unspecified site M19.90 ; Acute nonseasonal allergic rhinitis due to pollen J30.1 ; Impotence N52.9 ; Anxiety F41.9 ; Essential hypertension I10 and Non compliance w medication regimen Z91.14 [facility] [id number] [place] [address] 08756- 1711 Oct, [facility] [id number] [place] [address] 94357 -9967 Sep, Type 2 diabetes mellitus with diabetic neuropathy E11.40 ; Non compliance w medication regimen Z91.14 ; Non compliance with medical treatment Z91.19 and Foot pain, left M79.672 [facility] [id number] [place] [address] 48468- 4776 Jul, [facility] [address] 87392- 9955 Jul, [facility] [facility] [id number] [place] [address] 40526- 8853 May, Anxiety F41.9 ; Type 2 diabetes mellitus with diabetic neuropathy E11.40 ; Non compliance w medication regimen Z91.14 ; Mixed hyperlipidemia E78.2 and Essential hypertension I10 [facility] [id number] [place] [address] 43186- 1392 Apr, Osteoarthritis, unspecified osteoarthritis type, unspecified site M19.90 [facility] [id number] [place] [address] 95466- 6979 Apr, [facility] [id number] [place] [address] 32706- 4471 Apr, Type 2 diabetes mellitus with diabetic neuropathy E11.40 ; Non compliance w medication regimen Z91.14 ; Mixed hyperlipidemia E78.2 ; Essential hypertension I10 ; Plantar wart B07.0 and Anxiety F41.9 [facility] [id number] [place] [address] 97766- 7982 Apr, [facility] [id number] [place] [address] 57691- 4603 Apr, [place] [facility] [id number] [place] [address] 86647- 7966 Mar, Osteoarthritis, unspecified osteoarthritis type, unspecified site M19.90 and Impotence N52.9 [place] [address] 99027- 9655 Mar, [place] [address] 16364- 5499 Mar, Type 2 diabetes mellitus with diabetic neuropathy E11.40 ; Anxiety F41.9 and Intractable vomiting with nausea, unspecified vomiting type R11.2 [facility] [id number] [place] [address] 66260- 1550 Mar, Type 2 diabetes mellitus with diabetic neuropathy E11.40 and Intractable vomiting with nausea, unspecified vomiting type R11.2 [place] [address] 54888- 6782 Feb, Porokeratosis Q82.8 and Type 2 diabetes mellitus with diabetic neuropathy E11.40 [place] [facility] [id number] [place] [address] 94855- 9992 Jan, [place] [facility] [id number] [place] [address] 78324- 8957 Dec, [place] [address] 44820- 4804 Dec, Type 2 diabetes mellitus with diabetic neuropathy E11.40 ; Non compliance w medication regimen Z91.14 ; Impotence N52.9 ; Essential hypertension I10 ; Hyperlipidemia E78.5 ; Neuropathy G62.9 ; 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 and Plantar wart B07.0 [place] [facility] [id number] [place] [address] 92882- 5304 Dec, [facility] [facility] [id number] [place] [address] Nov, Dental examination Z01.20 [place] [facility] [address] 12035- 7607 Oct, Osteoarthritis, unspecified osteoarthritis type, unspecified site M19.90 ; Type 2 diabetes mellitus with diabetic neuropathy E11.40 ; Impotence N52.9 ; Mixed hyperlipidemia E78.2 ; Hyperlipidemia E78.5 ; Essential hypertension I10 and Plantar wart B07.0 [place] [address] 51683- 5720 Sep, [place] [address] 62164- 2858 August, Abnormal thyroid blood test R94.[address] 6[address]56- [address] August, Dental examination Z01.20 [place] [address] 43955- 7645 August, Type 2 diabetes mellitus with diabetic neuropathy E11.40 ; Non compliance w medication regimen Z91.14 ; Impotence N52.9 ; Mixed hyperlipidemia E78.2 ; Abscessed tooth K04.7 and Shoulder pain, left M25.[address] 91401- 5797 May, Type 2 diabetes mellitus with diabetic neuropathy E11.40 ; Non compliance w medication regimen Z91.14 ; Non compliance with medical treatment Z91.19 ; Shoulder pain, left M25.512 ; General medical exam Z00.00 ; Impotence N52.9 and Hyperlipidemia E78.5 [place] [address] 12051- 4183 Jan, Type 2 diabetes mellitus with diabetic neuropathy E11.40 ; Noncompliance w/medication treatment due to intermit use of medication Z91.14 and Impotence N52.9 [place] [address] 82023- 9893 Jan, [facility] [address] [address] Dec, [facility] [id number] [place] [address] 55655- 3798 Nov, [facility] [address], [place] [address] Nov, [facility] [id number] [place] [address] 245948- 3688 Nov, [facility] [id number] [place] [address] 33470- 9687 Nov, Diabetes with neurological manifestations, type II or unspecified type, not stated as uncontrolled 250.60 ; Hyperlipidemia 272.4 ; Allergic rhinitis, cause unspecified 477.9 and Depression 311 [facility] [id number] [place] [address] 87674- 6177 Sep, [facility] [address], [place] [address] 1341 Sep, [facility] [id number] [place] [address] 60947- 3139 Sep, [facility] [address], [place] [address] Sep, Depression 311 and Diabetes type 2, uncontrolled 250.02 [facility] [address], [place] [address] 8[address] August, [facility] [address], [place] [address] 64[address] Jul, [facility] [id number] [address] 4867 Jul, [facility] [address] [address]- 3834 Apr, [facility] [id number] [place] [address] 87524- 3316 Apr, [facility] [place] [facility] [address] [id number] [place] [address]- 7690 Apr, [facility] [place] [facility] [address] [id number] [place] [address]- 5946 Apr, [facility] [place] [facility] [address] [id number] [place] [address]- 1036 Jan, [facility] [place] [facility] [address] [id number] [place] [address]- 8164 Jan, [facility] [place] [facility] [address] [id number] [place] [address]- 3449 Nov, [facility] [place] [facility] [address] [id number] [place] [address]- 2743 Nov, [facility] [place] [facility] [address] [id number] [place] [address]- 5204 Nov, [facility] [place] [facility] [address] [id number] [place] [address]- 3225 Nov, [facility] [place] [facility] [address] [id number] [place] [address]- 9442 Nov, [facility] [place] [facility] [address] [id number] [place] [address]- 4893 Nov, [facility] [place] [facility] [address] [id number] [place] [address]- 9334 Nov, [facility] [place] [facility] [address] [id number] [place] [address]- 5987 Nov, [facility] [place] [facility] [address] [id number] [place] [address]- 9216 August, [facility] [place] [facility] [address] [id number] [place] [address]- 2653 August, [facility] [place] [facility] [address] [id number] [place] [address]- 3685 August, [facility] [place] [facility] [address] [id number] [place] [address]- 7940 August, [facility] [address] [id number] [place] [address]- 3270 August, [facility] [place] [facility] [address] [id number] [place] [address] May, [facility] [place] [facility] [address] [id number] [place] [address]- 2606 May, [facility] [place] [facility] [address] [id number] [place] [address] 2540 May, [facility] [place] [facility] [address] [id number] [place] [address]- 2773 May, [facility] [place] [facility] [address] [id number] [place] [address]- 9543 Apr, [facility] [place] [facility] [address] [id number] [place] [address]- 1055 Apr, [facility] [place] [facility] [address] [id number] [place] [address]- 2984 Jan, [facility] [place] [facility] [address] [facility] [id number] [place] [address]- 3296 Jan, [facility] [place] [facility] [address] [facility] [id number] [place] [address]- 5258 Jan, [facility] [place] [facility] [address] [id number] [place] [address] 2547 Jan, [facility] [place] [facility] [address] [id number] [place] [address]- 8841 Jan, [facility] [place] [facility] [address] [id number] [place] [address]- 3796 Dec, [facility] [place] [facility] [address] [id number] [place] [address] 2546 30 Dec, 2012 [facility] [place] [facility] [address] [id number] [place] [address]16 Dec, [facility] [id number], [place] [address]- 7121 Dec, [facility] [id number], [place] [address]- 1697 Dec, [facility] [id number], [place] [address]- 5486 Nov, [facility] [address], [place] [address]- 4887 Nov, [facility] [address], [place] [address]- 8638 Nov, [facility] [address], [place] [address]- 8318 Nov, [facility] [address], [place] [address]- 4796 Nov, [facility] [id number], [place] [address]- 5911 Nov, IMMUNIZATIONS No Known Immunizations SOCIAL HISTORY Never Assessed REASON FOR VISIT PLAN OF CARE VITAL SIGNS MEDICATIONS Unknown Medications RESULTS No Results PROCEDURES No Known procedures INSTRUCTIONS MEDICATIONS ADMINISTERED No Known Medications MEDICAL (GENERAL) HISTORY Type Description Date Medical History DM Medical History Depression Medical History Diabetic Neuropathy Medical History Allergies Medical History Porokeratosis Medical History Plantar wart Medical History 05/2017- Negative exercise stress test Dr Perdomo Hospitalization History [facility]- dx'd w/ DM 2008 Hospitalization History WENT TO ER FOR COLD S/S 09/07/14 Hospitalization History HTN, went to ER May 18, 2017
--- OUTSIDE RECORDS SUMMARY | 2018-01-12 16:09 | XMS REPORT ---
Author Author SARAH SAGE Organization [facility] Address [address] 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 Active Problem Essential hypertension I10 Active 76892686 Problem Acute idiopathic gout involving toe of right foot M10.071 Active 22426517 Problem Major depressive disorder, single episode, unspecified F32.9 Active 85124971 Problem Anxiety F41.9 Active 09159200 Problem Neuropathy G62.9 Active 456130046 Problem alf (current) use of insulin Z79.4 Active 334298909 Problem Acute nonseasonal allergic rhinitis due to pollen J30.1 Active 11540519 Problem Non compliance w medication regimen Z91.14 Active 764187020 Problem Non compliance with medical treatment Z91.19 Active 6322000 Problem Abnormal CBC R79.89 Active 396267149 Problem Impotence N52.9 Active 407108382 Problem Type 2 diabetes mellitus with diabetic neuropathy E11.40 Active 0147114226446 Problem Mixed hyperlipidemia E78.2 Active 871017750 ALLERGIES No Information ENCOUNTERS Encounter Location Date Diagnosis [facility] [id number] [address] Nov, [facility] [id number] [address] August, [facility] [id number] [place] [address]- [address] August, Type 2 diabetes mellitus with diabetic neuropathy E11.40 ; Mixed hyperlipidemia E78.2 ; Essential hypertension I10 ; Acute idiopathic gout involving toe of right foot M10.071 ; Neuropathy G62.9 and Major depressive disorder, single episode, unspecified F32.9 [id number] [place] [address] 81774- 8222 August, [address] [place] [id number] [place] [address] 17701- 0385 Jul, Essential hypertension I10 ; Neuropathy G62.9 and Musculoskeletal pain M79.1 [address] [address] 14 May, 2017 [address] [place] [id number] [place] [address] 87468- 1014 09 May, 2017 Type 2 diabetes mellitus with diabetic neuropathy E11.40 ; 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 ; Essential hypertension I10 ; Mixed hyperlipidemia E78.2 ; Non compliance w medication regimen Z91.14 ; Non compliance with medical treatment Z91.19 ; Injury of right thumb, initial encounter S69.91XA and Major depressive disorder, single episode, unspecified F32.9 [address] [place] [id number] [place] [address] 89881- 9918 08 May, 2017 [address] [address] [address] May, [address] [id number] [place] [address] 23321- 9042 May, Chest pain, unspecified type R07.9 and Type 2 diabetes mellitus with diabetic neuropathy E11.40 [address] [place] [id number] [place] [address] 37284- 0347 May, [address] [place] [id number] [place] [address] 79565- 7014 Feb, Abnormal CBC R79.89 [address] 10245- 7548 Feb, [address] [id number] [place] [address] 84390- 7486 Jan, Type 2 diabetes mellitus with diabetic neuropathy E11.40 ; Mixed hyperlipidemia E78.2 ; Neuropathy G62.9 ; Osteoarthritis, unspecified osteoarthritis type, unspecified site M19.90 ; Acute nonseasonal allergic rhinitis due to pollen J30.1 ; Impotence N52.9 ; Anxiety F41.9 ; Essential hypertension I10 and Non compliance w medication regimen Z91.14 [facility] [id number] [place] [address] 70818- 9388 Oct, [facility] [id number] [place] [address]144 [address]8990 Sep, Type 2 diabetes mellitus with diabetic neuropathy E11.40 ; Non compliance w medication regimen Z91.14 ; Non compliance with medical treatment Z91.19 and Foot pain, left M79.672 [facility] [id number] [place] [address] 25562- 4398 Jul, [facility] [address] 23970- [address] Jul, [address] [id number] [place] [address] 15461- 2517 May, Anxiety F41.9 ; Type 2 diabetes mellitus with diabetic neuropathy E11.40 ; Non compliance w medication regimen Z91.14 ; Mixed hyperlipidemia E78.2 and Essential hypertension I10 [facility] [id number] [place] [address] 55822- 0628 Apr, Osteoarthritis, unspecified osteoarthritis type, unspecified site M19.90 [facility] [id number] [place] [address] 33608- 6076 Apr, [facility] [id number] [place] [address] 81508- 0373 Apr, Type 2 diabetes mellitus with diabetic neuropathy E11.40 ; Non compliance w medication regimen Z91.14 ; Mixed hyperlipidemia E78.2 ; Essential hypertension I10 ; Plantar wart B07.[address] [facility] [id number] [place] [address] 79891- 1708 Apr, [facility] [id number] [place] [address] 73419- 2442 Apr, [address] [id number] [place] [address] 80954- 3202 Mar, Osteoarthritis, unspecified osteoarthritis type, unspecified site M19.90 and Impotence N52.9 [address] 46792- 6362 Mar, [address] [address] 66111- 5685 Mar, Type 2 diabetes mellitus with diabetic neuropathy E11.40 ; Anxiety F41.9 and Intractable vomiting with nausea, unspecified vomiting type R11.2 [address] [place] [id number] [place] [address] 04809- 3723 Mar, Type 2 diabetes mellitus with diabetic neuropathy E11.40 and Intractable vomiting with nausea, unspecified vomiting type R11.2 [address] [place] [address] 97611- 6819 Feb, Porokeratosis Q82.8 and Type 2 diabetes mellitus with diabetic neuropathy E11.40 [address] [id number] [place] [address] 81085- 6144 Jan, [address] [place] [id number] [place] [address] 70769- 8952 Dec, [address] 16283- 0587 Dec, Type 2 diabetes mellitus with diabetic neuropathy E11.40 ; Non compliance w medication regimen Z91.14 ; Impotence N52.9 ; Essential hypertension I10 ; Hyperlipidemia E78.5 ; Neuropathy G62.9 ; 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 and Plantar wart B07.0 [id number] [place] [address] 68089- 9146 Dec, [id number] [place] [address] Nov, Dental examination Z01.20 [address] 57181- 4[address] Oct, Osteoarthritis, unspecified osteoarthritis type, unspecified site M19.90 ; Type 2 diabetes mellitus with diabetic neuropathy E11.40 ; Impotence N52.9 ; Mixed hyperlipidemia E78.2 ; Hyperlipidemia E78.5 ; Essential hypertension I10 and Plantar wart B07.0 [address] 85225- 6065 Sep, [address] [address] 48383- 9531 August, Abnormal thyroid blood test R94.[address] 52193- [address] August, Dental examination Z01.20 [address] 92497- 5677 August, Type 2 diabetes mellitus with diabetic neuropathy E11.40 ; Non compliance w medication regimen Z91.14 ; Impotence N52.9 ; Mixed hyperlipidemia E78.2 ; Abscessed tooth K04.7 and Shoulder pain, left M25.[address] 27429- 1195 May, Type 2 diabetes mellitus with diabetic neuropathy E11.40 ; Non compliance w medication regimen Z91.14 ; Non compliance with medical treatment Z91.19 ; Shoulder pain, left M25.512 ; General medical exam Z00.00 ; Impotence N52.9 and Hyperlipidemia E78.5 [address] [address] 18266- 1828 Jan, Type 2 diabetes mellitus with diabetic neuropathy E11.40 ; Noncompliance w/medication treatment due to intermit use of medication Z91.14 and Impotence N52.9 [address] [address] 33999- [address]709 Jan, [facility] [address] [address] Dec, [facility] [id number] [place] [address] 63114- 0531 Nov, [facility] [address] [address] Nov, [facility] [id number] [place] [address] 247687- 6135 Nov, [facility] [id number] [place] [address] 40147- 8231 Nov, Diabetes with neurological manifestations, type II or unspecified type, not stated as uncontrolled 250.60 ; Hyperlipidemia 272.4 ; Allergic rhinitis, cause unspecified 477.[address] [facility] [id number] [place] [address] 24932- 2776 Sep, [facility] [address] [address]- 7881 Sep, [facility] [id number] [place] [address] 43038- 4722 Sep, [facility] [address] [address]- 56[address] Sep, Depression 311 and Diabetes type [address], [address] [facility] [address] [address] August, [facility] [address] [address]- 3778 Jul, [facility] [id number] [address]- 7683 Jul, [facility] [address] [address]31 Apr, [facility] [id number] [place] [address] 61538- 4986 Apr, [facility] [place] [facility] [address] [id number] [place] [address]- 0405 Apr, [facility] [place] [facility] [address] [id number] [place] [address]- 3018 Apr, [facility] [place] [facility] [address] [id number] [place] [address]- 2223 Jan, [facility] [place] [facility] [address] [id number] [place] [address]- 4368 Jan, [facility] [place] [facility] [address] [id number] [place] [address]- 4157 Nov, [facility] [place] [facility] [address] [id number] [place] [address]- 7120 Nov, [facility] [place] [facility] [address] [id number] [place] [address]- 4922 Nov, [facility] [place] [facility] [address] [id number] [place] [address]- 0638 Nov, [facility] [place] [facility] [address] [id number] [place] [address]- 5845 Nov, [facility] [place] [facility] [address] [id number] [place] [address]- 7734 Nov, [facility] [place] [facility] [address] [id number] [place] [address]- 2618 Nov, [facility] [place] [facility] [address] [id number] [place] [address]- 0327 Nov, [facility] [place] [facility] [address] [id number] [place] [address]- 4466 August, [facility] [place] [facility] [address] [id number] [place] [address]- 1615 August, [facility] [place] [facility] [address] [id number] [place] [address]- 7001 August, [facility] [place] [facility] [address] [id number] [place] [address]- 9309 August, [facility] [address] [id number] [place] [address]- 1598 August, [facility] [place] [facility] [address] [id number] [place] [address] May, [facility] [place] [facility] [address] [id number] [place] [address]- 3206 May, [facility] [place] [facility] [address] [id number] [place] [address] 2544 May, [facility] [place] [facility] [address] [id number] [place] [address]- 6945 May, [facility] [place] [facility] [address] [id number] [place] [address]- 4833 Apr, [facility] [place] [facility] [address] [id number] [place] [address]- 1058 Apr, [facility] [place] [facility] [address] [id number] [place] [address]- 6138 Jan, [facility] [place] [facility] [address] [facility] [id number] [place] [address]- 0629 Jan, [facility] [place] [facility] [address] [facility] [id number] [place] [address]- 3880 Jan, [facility] [place] [facility] [address] [id number] [place] [address] 2545 Jan, [facility] [place] [facility] [address] [id number] [place] [address]- 2783 Jan, [facility] [place] [facility] [address] [id number] [place] [address]- 4746 Dec, [facility] [place] [facility] [address] [id number] [place] [address] 2546 30 Dec, 2012 [facility] [place] [facility] [address] [id number] [place] [address] Dec, [facility] [id number] [address] Dec, [facility] [id number] [address]- 7717 Dec, [facility] [id number] [address]- 9863 Nov, [facility] [address] [address]- [address]85 Nov, [facility] [id number] [address]- 3540 Nov, [facility] [address] [address]- 3726 Nov, [facility] [address] [address] Nov, [facility] [id number] [address]- [address]26 Nov, IMMUNIZATIONS No Known Immunizations SOCIAL HISTORY [...] exercise stress test Dr Perdomo Hospitalization History [facility]- dx'd w/ DM 2008 Hospitalization History WENT TO ER FOR COLD S/S 09/07/14 Hospitalization History HTN, went to ER May 18, 2017
--- OUTSIDE RECORDS SUMMARY | 2018-01-12 16:10 | XMS REPORT ---
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 Active Problem Essential hypertension I10 Active 86217502 Problem Acute idiopathic gout involving toe of right foot M10.071 Active 91414739 Problem Major depressive disorder, single episode, unspecified F32.9 Active 90489307 Problem Anxiety F41.9 Active 15670932 Problem Neuropathy G62.9 Active 918828694 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 [id number] [address] Sep, [facility] [address] [id number] [address] August, [facility] [id number] [place] [address] 48968- 9627 August, Type 2 diabetes mellitus with diabetic neuropathy E11.40 ; Mixed hyperlipidemia E78.2 ; Essential hypertension I10 ; Acute idiopathic gout involving toe of right foot M10.071 ; Neuropathy G62.9 and Major depressive disorder, single episode, unspecified F32.9 [place] [id number] [place] [address] 35909- 8768 August, [place] [id number] [place] [address] 15072- 6019 Jul, Essential hypertension I10 ; Neuropathy G62.9 and Musculoskeletal pain M79.1 [place] [address] [address]- [address]50 14 May, 2017 [place] [id number] [place] [address] 28231- 1955 09 May, 2017 Type 2 diabetes mellitus with diabetic neuropathy E11.40 ; snf (current) use of insulin Z79.4 ; Essential hypertension I10 ; Mixed hyperlipidemia E78.2 ; Non compliance w medication regimen Z91.14 ; Non compliance with medical treatment Z91.19 ; Injury of right thumb, initial encounter S69.91XA and Major depressive disorder, single episode, unspecified F32.9 [place] [id number] [place] [address] 00155- 3660 08 May, 2017 [place] [address] [address]- [address] May, [place] [id number] [place] [address] 34736- 1560 May, Chest pain, unspecified type R07.9 and Type 2 diabetes mellitus with diabetic neuropathy E11.40 [place] [id number] [place] [address] 31601- 2409 May, [place] [id number] [place] [address] 33456- 6093 Feb, Abnormal CBC R79.89 [place] [address] [address]- [address]199 Feb, [place] [id number] [place] [address] 43473- 8036 Jan, Type 2 diabetes mellitus with diabetic neuropathy E11.40 ; Mixed hyperlipidemia E78.2 ; Neuropathy G62.9 ; Osteoarthritis, unspecified osteoarthritis type, unspecified site M19.90 ; Acute nonseasonal allergic rhinitis due to pollen J30.1 ; Impotence N52.9 ; Anxiety F41.9 ; Essential hypertension I10 and Non compliance w medication regimen Z91.14 [facility] [id number] [place] [address] 66594- 0029 Oct, [facility] [id number] [place] [address] 57676 -2956 Sep, Type 2 diabetes mellitus with diabetic neuropathy E11.40 ; Non compliance w medication regimen Z91.14 ; Non compliance with medical treatment Z91.19 and Foot pain, left M79.672 [facility] [id number] [place] [address] 75197- 4195 Jul, [facility] [address] [address]- 7904 Jul, [place] [id number] [place] [address] 01881- 7023 May, Anxiety F41.9 ; Type 2 diabetes mellitus with diabetic neuropathy E11.40 ; Non compliance w medication regimen Z91.14 ; Mixed hyperlipidemia E78.2 and Essential hypertension I10 [facility] [id number] [place] [address] 34991- 5877 Apr, Osteoarthritis, unspecified osteoarthritis type, unspecified site M19.90 [facility] [id number] [place] [address] 87652- 8007 Apr, [facility] [id number] [place] [address] 42073- 1597 Apr, Type 2 diabetes mellitus with diabetic neuropathy E11.40 ; Non compliance w medication regimen Z91.14 ; Mixed hyperlipidemia E78.2 ; Essential hypertension I10 ; Plantar wart B07.0 and Anxiety F41.9 [facility] [id number] [place] [address] 58937- 3902 Apr, [facility] [id number] [place] [address] 27307- 3420 Apr, [place] [id number] [place] [address] 99191- 5280 Mar, Osteoarthritis, unspecified osteoarthritis type, unspecified site M19.90 and Impotence N52.9 [place] [address] 32389- 6317 Mar, [place] [address] 04992- 0255 Mar, Type 2 diabetes mellitus with diabetic neuropathy E11.40 ; Anxiety F41.9 and Intractable vomiting with nausea, unspecified vomiting type R11.2 [place] [id number] [place] [address] 13493- 5556 Mar, Type 2 diabetes mellitus with diabetic neuropathy E11.40 and Intractable vomiting with nausea, unspecified vomiting type R11.2 [place] [address] 26592- 9532 Feb, Porokeratosis Q82.8 and Type 2 diabetes mellitus with diabetic neuropathy E11.40 [place] [id number] [place] [address] 07520- 3571 Jan, [place] [id number] [place] [address] 72633- 5215 Dec, [place] [address] 24572- 7115 Dec, Type 2 diabetes mellitus with diabetic neuropathy E11.40 ; Non compliance w medication regimen Z91.14 ; Impotence N52.9 ; Essential hypertension I10 ; Hyperlipidemia E78.5 ; Neuropathy G62.9 ; 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 and Plantar wart B07.0 [place] [id number] [place] [address] 15375- 0015 Dec, [place] [id number] [address]47 Nov, Dental examination Z01.20 [place] [address] 65602- 7270 Oct, Osteoarthritis, unspecified osteoarthritis type, unspecified site M19.90 ; Type 2 diabetes mellitus with diabetic neuropathy E11.40 ; Impotence N52.9 ; Mixed hyperlipidemia E78.2 ; Hyperlipidemia E78.5 ; Essential hypertension I10 and Plantar wart B07.0 [place] [address] 34204- 5739 Sep, [place] [address] 31822- 2267 August, Abnormal thyroid blood test R94.[address] 15669- 0051 August, Dental examination Z01.20 [place] [address] 20939- 6601 August, Type 2 diabetes mellitus with diabetic neuropathy E11.40 ; Non compliance w medication regimen Z91.14 ; Impotence N52.9 ; Mixed hyperlipidemia E78.2 ; Abscessed tooth K04.7 and Shoulder pain, left M25.[address] 9[address]19- 8695 May, Type 2 diabetes mellitus with diabetic neuropathy E11.40 ; Non compliance w medication regimen Z91.14 ; Non compliance with medical treatment Z91.19 ; Shoulder pain, left M25.512 ; General medical exam Z00.00 ; Impotence N52.9 and Hyperlipidemia E78.5 [place] [address] 15651- 5264 Jan, Type 2 diabetes mellitus with diabetic neuropathy E11.40 ; Noncompliance w/medication treatment due to intermit use of medication Z91.14 and Impotence N52.9 [place] [address] 68770- 1858 Jan, [facility] [address] [address] 2574 Dec, [facility] [id number] [place] [address] 59533- 4785 Nov, [facility] [address] [address] 9338 Nov, [facility] [id number] [place] [address] 708309- 2986 Nov, [facility] [address] [place] [address] 89433- 1749 Nov, Diabetes with neurological manifestations, type II or unspecified type, not stated as uncontrolled 250.60 ; Hyperlipidemia 272.4 ; Allergic rhinitis, cause unspecified 477.9 and Depression 311 [facility] [id number] [place] [address] 74289- 0545 Sep, [facility] [address] [address] 1181 Sep, [facility] [address] [place] [address] 33227- 4139 Sep, [facility] [address] [address]- 7966 Sep, Depression 311 and Diabetes type 2, uncontrolled 250.02 [facility] [address] [address]- 3630 August, [facility] [address] [address]- 5301 Jul, [facility] [address] [id number] [address]- 4871 Jul, [facility] [address] [address]- 8099 Apr, [facility] [address] [place] [address] 29017- 0324 Apr, [facility] [place] [facility] [address] [id number] [place] [address]- 4130 Apr, [facility] [place] [facility] [address] [id number] [place] [address]- 6905 Apr, [facility] [place] [facility] [address] [id number] [place] [address]- 8997 Jan, [facility] [place] [facility] [address] [id number] [place] [address]- 8407 Jan, [facility] [place] [facility] [address] [id number] [place] [address]- 3556 Nov, [facility] [place] [facility] [address] [id number] [place] [address]- 3487 Nov, [facility] [place] [facility] [address] [id number] [place] [address]- 2032 Nov, [facility] [place] [facility] [address] [id number] [place] [address]- 0374 Nov, [facility] [place] [facility] [address] [id number] [place] [address]- 8119 Nov, [facility] [place] [facility] [address] [id number] [place] [address]- 1440 Nov, [facility] [place] [facility] [address] [id number] [place] [address]- 1510 Nov, [facility] [place] [facility] [address] [id number] [place] [address]- 8656 Nov, [facility] [place] [facility] [address] [id number] [place] [address]- 5712 August, [facility] [place] [facility] [address] [id number] [place] [address]- 6216 August, [facility] [place] [facility] [address] [id number] [place] [address]- 0946 August, [facility] [place] [facility] [address] [id number] [place] [address]- 9724 August, [facility] [address] [id number] [place] [address]- 7879 August, [facility] [place] [facility] [address] [id number] [place] [address] May, [facility] [place] [facility] [address] [id number] [place] [address]- 4636 May, [facility] [place] [facility] [address] [id number] [place] [address] 2541 May, [facility] [place] [facility] [address] [id number] [place] [address]- 5158 May, [facility] [place] [facility] [address] [id number] [place] [address]- 6915 Apr, [facility] [place] [facility] [address] [id number] [place] [address]- 0892 Apr, [facility] [place] [facility] [address] [id number] [place] [address]- 8806 Jan, [facility] [place] [facility] [address] [facility] [id number] [place] [address]- 2384 Jan, [facility] [place] [facility] [address] [facility] [id number] [place] [address]- 5628 Jan, [facility] [place] [facility] [address] [id number] [place] [address] 2541 Jan, [facility] [place] [facility] [address] [id number] [place] [address]- 8171 Jan, [facility] [place] [facility] [address] [id number] [place] [address]- 7516 Dec, [facility] [place] [facility] [address] [id number] [place] [address] 2546 30 Dec, 2012 [facility] [place] [facility] [address] [id number] [place] [address] Dec, [facility] [id number] [address]- 4700 Dec, [facility] [address] [address]- 9876 Dec, [facility] [id number] [address]- 0913 Nov, [facility] [address] [address]- 3747 Nov, [facility] [address] [address]- 9007 Nov, [facility] [address] [address]- 7978 Nov, [facility] [address] [address]- 8246 Nov, [facility] [id number] [address]- 5793 Nov, IMMUNIZATIONS No Known Immunizations SOCIAL HISTORY Never Assessed REASON FOR VISIT PALS IN-[place] PLAN OF CARE VITAL SIGNS MEDICATIONS Unknown Medications RESULTS No Results PROCEDURES No Known procedures INSTRUCTIONS MEDICATIONS ADMINISTERED No Known Medications MEDICAL (GENERAL) HISTORY Type Description Date Medical History DM Medical History Depression Medical History Diabetic Neuropathy Medical History Allergies Medical History Porokeratosis Medical History Plantar wart Medical History 05/2017- Negative exercise stress test Dr Perdomo Hospitalization History [facility]- dx'd w/ DM 2008 Hospitalization History WENT TO ER FOR COLD S/S 09/07/14 Hospitalization History HTN, went to ER May 18, 2017
--- OUTSIDE RECORDS SUMMARY | 2018-01-12 16:11 | XMS REPORT ---
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 Name Role Phone NEY MARTINEZ Unavailable PROBLEMS Type Condition ICD9-CM Code RCZ02-PW Code Onset Dates Condition Status SNOMED Code Problem Mixed hyperlipidemia E78.2 Active 465283828 Problem Essential hypertension I10 Active 10734058 Problem Osteoarthritis, unspecified osteoarthritis type, unspecified site M19.90 Active 328801651 Problem Major depressive disorder, single episode, unspecified F32.9 Active 76621367 Problem FDC (current) use of insulin Z79.4 Active 870084837 Problem Neuropathy G62.9 Active 344380035 Problem 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 Active Problem Acute nonseasonal allergic rhinitis due to pollen J30.1 Active 34678811 Problem Anxiety F41.9 Active 49481592 Problem Type 2 diabetes mellitus with diabetic neuropathy E11.40 Active 5292341509573 Problem Non compliance w medication regimen Z91.14 Active 023121100 Problem Non compliance with medical treatment Z91.19 Active 5363265 Problem Abnormal CBC R79.89 Active 328685048 Problem Impotence N52.9 Active 632632357 ALLERGIES Substance Reaction Event Type Date Status Lisinopril hypotension Drug Allergy Sep, Active ENCOUNTERS Encounter Location Date Diagnosis [facility] [address] [facility] [id number] [address] May, [facility] [address] [facility] [id number] [address] May, Type 2 diabetes mellitus with diabetic neuropathy E11.40 ; 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 ; Essential hypertension I10 ; Mixed hyperlipidemia E78.2 ; Non compliance w medication regimen Z91.14 ; Non compliance with medical treatment Z91.19 ; Injury of right thumb, initial encounter S69.91XA and Major depressive disorder, single episode, unspecified F32.9 [place] [address] [place] [address]807 May, [facility] [address] [place] [id number] [place] [address] 23906- 3117 May, [facility] [address] [place] [id number] [place] [address] 20502- 0975 May, Chest pain, unspecified type R07.9 and Type 2 diabetes mellitus with diabetic neuropathy E11.40 [place] [address] [place] [id number] [place] [address] 82328- 6724 May, [place] [address] [place] [id number] [place] [address] 35619- 9833 Feb, Abnormal CBC R79.89 [place] [address] [place] [id number] [place] [address] 53297- 3670 Feb, [place] [address] [place] [id number] [place] [address] 33601- 6009 Jan, Type 2 diabetes mellitus with diabetic neuropathy E11.40 ; Mixed hyperlipidemia E78.2 ; Neuropathy G62.9 ; Osteoarthritis, unspecified osteoarthritis type, unspecified site M19.90 ; Acute nonseasonal allergic rhinitis due to pollen J30.1 ; Impotence N52.9 ; Anxiety F41.9 ; Essential hypertension I10 and Non compliance w medication regimen Z91.14 [facility] [address] [place] [id number] [place] [address] 18584- 2156 Oct, [facility] [address] [place] [address]10 [address]347 Sep, Type 2 diabetes mellitus with diabetic neuropathy E11.40 ; Non compliance w medication regimen Z91.14 ; Non compliance with medical treatment Z91.19 and Foot pain, left M79.672 [place] [address] [place] [id number] [place] [address] 41898- 6237 Jul, [facility] [address] [place] [id number] [place] [address] 24905- 9272 Jul, [facility] [address] [address] May, Anxiety F41.9 ; Type 2 diabetes mellitus with diabetic neuropathy E11.40 ; Non compliance w medication regimen Z91.14 ; Mixed hyperlipidemia E78.2 and Essential hypertension I10 [facility] [address] [place] [address] 35539- 6918 Apr, Osteoarthritis, unspecified osteoarthritis type, unspecified site M19.90 [facility] [address] [place] [address] 92596- 9604 Apr, [place] [address] [place] [id number] [place] [address] 96629- 3592 Apr, Type 2 diabetes mellitus with diabetic neuropathy E11.40 ; Non compliance w medication regimen Z91.14 ; Mixed hyperlipidemia E78.2 ; Essential hypertension I10 ; Plantar wart B07.0 and Anxiety F41.9 [place] [address] [address]698 Apr, [place] [address] [place] [id number] [place] [address] 56411- 2495 Apr, [facility] [address] [place] [address] 83437- 4019 Mar, Osteoarthritis, unspecified osteoarthritis type, unspecified site M19.90 and Impotence N52.9 [facility] [address] [address] Mar, [facility] [address] [address] Mar, Type 2 diabetes mellitus with diabetic neuropathy E11.40 ; Anxiety F41.9 and Intractable vomiting with nausea, unspecified vomiting type R11.2 [facility] [address] [address] Mar, Type 2 diabetes mellitus with diabetic neuropathy E11.40 and Intractable vomiting with nausea, unspecified vomiting type R11.2 [place] [address] [place] [id number] [place] [address] 91598- 4639 Feb, Porokeratosis Q82.8 and Type 2 diabetes mellitus with diabetic neuropathy E11.40 [place] [address] [place] [id number] [place] [address] 65698- 2523 Jan, [place] [address] [address]- [address]551 Dec, [place] [address] 31652- 6986 Dec, Type 2 diabetes mellitus with diabetic neuropathy E11.40 ; Non compliance w medication regimen Z91.14 ; Impotence N52.9 ; Essential hypertension I10 ; Hyperlipidemia E78.5 ; Neuropathy G62.9 ; 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 and Plantar wart B07.0 [place] [address] 63220- 4092 Dec, [place] [address] [place] [id number] [place] [address] 40972- 3671 Nov, Dental examination Z01.20 [place] [address] [place] [id number] [place] [address] 81884- 4022 Oct, Osteoarthritis, unspecified osteoarthritis type, unspecified site M19.90 ; Type 2 diabetes mellitus with diabetic neuropathy E11.40 ; Impotence N52.9 ; Mixed hyperlipidemia E78.2 ; Hyperlipidemia E78.5 ; Essential hypertension I10 and Plantar wart B07.0 [place] [address] [place] [id number] [place] [address] 52944- 1553 Sep, [place] [address] 44576- 9124 August, Abnormal thyroid blood test R94.6 [place] [address] [place] [id number] [place] [address] 39758- 3292 August, Dental examination Z01.20 [place] [address] [place] [id number] [place] [address] 01886- 4044 August, Type 2 diabetes mellitus with diabetic neuropathy E11.40 ; Non compliance w medication regimen Z91.14 ; Impotence N52.9 ; Mixed hyperlipidemia E78.2 ; Abscessed tooth K04.7 and Shoulder pain, left M25.512 [place] [address] [place] [id number] [place] [address] 66311- 4908 May, Type 2 diabetes mellitus with diabetic neuropathy E11.40 ; Non compliance w medication regimen Z91.14 ; Non compliance with medical treatment Z91.19 ; Shoulder pain, left M25.512 ; General medical exam Z00.00 ; Impotence N52.9 and Hyperlipidemia E78.5 [place] [address] [place] [id number] [place] [address] 19596- 7210 Jan, Type 2 diabetes mellitus with diabetic neuropathy E11.40 ; Noncompliance w/medication treatment due to intermit use of medication Z91.14 and Impotence N52.9 [place] [address] [place] [id number] [place] [address] 65746- 6875 Jan, [place] [address] 57015- 0226 Dec, [place] [address] [place] [id number] [place] [address] 08534- 9361 Nov, [place] [address] [place] [id number] [place] [address] 95566- 9357 Nov, [place] [address] [place] [id number] [place] [address] 63549- 7873 Nov, [place] [address] 33746- 0326 Nov, Diabetes with neurological manifestations, type II or unspecified type, not stated as uncontrolled 250.60 ; Hyperlipidemia 272.4 ; Allergic rhinitis, cause unspecified 477.9 and Depression 311 [place] [address] 69425- 3630 Sep, [facility] [address] [id number] [place] [address] 3[address] Sep, [facility] [address] [id number] [place] [address]- 5137 Sep, [facility] [address] [id number] [place] [address]- 7586 Sep, Depression 311 and Diabetes type 2, uncontrolled 250.02 [facility] [address] [id number] [place] [address]- 0342 August, [facility] [address] [id number] [place] [address], [place] [address]- 0459 Jul, [facility] [address] [id number] [place] [address]- 7859 Jul, [facility] [address] [id number] [place] [address]- 1809 Apr, [facility] [address] [id number] [place] [address]- 5609 Apr, [facility] [address] [id number] [place] [address]- 6571 Apr, [facility] [address] [facility] [id number] [place] [address]- 8871 Apr, [facility] [address] [id number] [place] [address]- 4120 Jan, [facility] [address] [id number] [place] [address]- 3665 Jan, [facility] [address] [id number] [place] [address]- 2151 Nov, [facility] [address] [id number] [place] [address]- 1141 Nov, [facility] [address] [facility] [id number] [place] [address]- 9326 Nov, [facility] [place] [facility] [address] [id number] [place] [address]- 3495 Nov, [facility] [place] [facility] [address] [id number] [place] [address]- 3323 Nov, [facility] [place] [facility] [address] [id number] [place] [address]- 5384 Nov, [facility] [place] [facility] [address] [id number] [place] [address]- 7799 Nov, [facility] [place] [facility] [address] [id number] [place] [address]- 1093 Nov, [facility] [place] [facility] [address] [id number] [place] [address]- 2624 August, [facility] [place] [facility] [address] [id number] [place] [address]- 3874 August, [facility] [place] [facility] [address] [id number] [place] [address]- 5968 August, [facility] [place] [facility] [address] [id number] [place] [address]- 0766 August, [facility] [place] [facility] [address] [id number] [place] [address]- 3678 August, [facility] [place] [facility] [address] [id number] [place] [address]- 5769 May, [facility] [place] [facility] [address] [id number] [place] [address]- 8743 May, [facility] [place] [facility] [address] [id number] [place] [address]- 5549 May, [facility] [place] [facility] [address] [id number] [place] [address]- 0588 May, [facility] [place] [facility] [address] [id number] [place] [address]- 4636 Apr, [facility] [place] [facility] [address] [id number] [place] [address]- 9773 Apr, [facility] [place] [facility] [address] [id number] [place] [address]- 1761 Jan, [facility] [place] [facility] [address] [id number] [place] [address]- 8995 Jan, [facility] [place] [facility] [address] [id number] [place] [address]- 2738 Jan, [facility] [place] [facility] [address] [id number] [place] [address]- 5560 Jan, [facility] [place] [facility] [address] [id number] [place] [address]- 3400 Jan, [facility] [place] [facility] [address] [id number] [place] [address]- 8596 Dec, [facility] [place] [facility] [address] [id number] [place] [address]- 3050 Dec, [facility] [place] [facility] [address] [id number] [place] [address]- 7064 Dec, [facility] [place] [facility] [address] [id number] [place] [address]- 6958 Dec, [facility] [place] [facility] [address] [id number] [place] [address]- 6611 Dec, [facility] [place] [facility] [address] [id number] [place] [address]- 1744 Nov, [facility] [place] [facility] [address] [id number] [place] [address]- 1879 Nov, [facility] [place] [facility] [address] [id number] [place] [address]- 4244 Nov, [facility] [place] [facility] [address] [id number] [place] [address]- 4934 Nov, [facility] [place] [facility] [address] [id number] [place] [address]- 9649 Nov, [facility] [place] [facility] [address] [facility] [id number] [place] [address]30 Nov, IMMUNIZATIONS No Known Immunizations SOCIAL HISTORY Never Assessed REASON FOR VISIT wart on bottom of left foot for possibly 6 months MALINAtraRosalia PLAN OF CARE Activity Details Follow Up 2 Weeks Reason:DM follow up VITAL SIGNS Height 68 in 2016-09-26 Weight 153.2 lbs 2016-09-26 Temperature 98.0 degrees Fahrenheit 2016-09-26 Heart Rate 66 bpm 2016-09-26 Respiratory Rate 20 2016-09-26 BMI 23.29 kg/m2 2016-09-26 Blood pressure systolic 100 mmHg 2016-09-26 Blood pressure diastolic 66 mmHg 2016-09-26 MEDICATIONS Medication Instructions Dosage Frequency Start Date End Date Duration Status Glucocard Expression Test 1 kit In Vitro 3 times a day test 3 times per day 8h May, 12 months Active Levemir Flexpen 100 UNIT/ML Subcutaneous--per insulin sliding scale protocol 2 times a day 40 units 12h 120 days Active BusPIRone HCl 10 mg Orally Twice a day 1 tablet 12h Mar, 90 days Active Simvastatin 20 mg Orally Once a day at bedtime 1 tablet by Oral route 1 time per day Jan, 90 days Active Reglan 10 MG Orally 3 times a day, ac 1 Mar, Active MetFORMIN HCl ER (MOD) 500 MG Orally 2 times a day with meal 2 tablets twice day with meals May, 90 days Active GlipiZIDE 10 MG Orally 2 times a day 1 tablets 12h Jan, 90 days Active Sertraline HCl 50 mg Orally Once a day 1 tablet 24h May, 90 days Active Pen Halifax 32G X 4 MM 1 12h 120 days Active Cozaar 25 MG Orally Once a day 0.5 tablet 24h Jan, 90 days Active RESULTS No Results PROCEDURES No Known procedures INSTRUCTIONS MEDICATIONS ADMINISTERED No Known Medications MEDICAL (GENERAL) HISTORY Type Description Date Medical History DM Medical History Depression Medical History Diabetic Neuropathy Medical History Allergies Medical History Porokeratosis Medical History Plantar wart Hospitalization History [facility]- dx'd w/ DM 2008 Hospitalization History WENT TO ER FOR COLD S/S 09/07/14 Hospitalization History HTN, went to ER May 18, 2017
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
--- NOTE | 2018-01-12 16:28 | ED General ---
General Stated Complaint: BODY ACHES, RUNNY NOSE, COUGH Source of Information: Patient Exam Limitations: No Limitations History of Present Illness Date Seen by Provider: Jan 12, 2018 Time Seen by Provider: 16:15 Initial Comments The patient presents to the ER by private conveyance with a chief complaint that he has been feeling poorly since Wednesday, 3 days ago. He's had a cough sometimes productive of sputum. Body aches, fatigue, off-again on-again nausea without vomiting and chills. He has not measured himself to have a fever. His most recent use of ibuprofen was about 2 hours ago for the body aches. He took yesterday off work and went to the urgent care and said that they did a swab up his nose and told him he had a cold to go home and get some rest. He is diabetic uses about 30 units of Levemir in the evening when he gets up to go work. He does not use a short acting insulin. He's been admitted for about 30 years. He does take some medicines for mood and other medications that is not sure what the name of or what they do. He does smoke about half pack per day but does not have a history of asthma or COPD. Allergies and Home Medications Allergies Coded Allergies: No Known Drug Allergies (Unverified , 02/04/13) Home Medications Albuterol 8.5 Gm Hfa.aer.ad, 2 PUFF IH RTQ4HR PRN for SHORTNESS OF BREATH 1 PUFFS Prescribed by: JULES MARY on 09/07/142130 Cyclobenzaprine HCl 10 Mg Tablet, 10 MG PO TID PRN for SPASMS Prescribed by: BLANQUITA DALAL on 07/21/162027 Metformin Hcl 1,000 Mg Tablet, 2 EACH PO BID WITH MEALS, (Reported) Sertraline HCl 50 Mg Tablet, 1 TAB PO UD, (Reported) Patient Home Medication List Home Medication List Reviewed: Yes Review of Systems Review of Systems Constitutional: chills, fever, malaise, weakness EENTM: No ear discharge, No hearing loss, No ear pain, No blurred vision Respiratory: cough, phlegm; No short of breath; wheezing Cardiovascular: No chest pain, No palpitations Gastrointestinal: No abdominal pain, No constipation Genitourinary: No discharge, No dysuria Musculoskeletal: No back pain, No joint pain Skin: No pruritus, No rash Psychiatric/Neurological: Headache; Denies Numbness Past Jutgbfh-Sbhtfz-Vadsve Hx Patient Social History Alcohol Use: Past History Alcohol Beverage of Choice: Beer, Whiskey Recreational Drug Use: No Smoking Status: Current Everyday Smoker Type Used: Cigarettes (0.5 ppd) 2nd Hand Smoke Exposure: Yes Recent Foreign Travel: No Contact w/Someone Who Travel: No Recent Hopitalizations: No Immunizations Up To Date Tetanus Booster (TDap): Unknown Seasonal Allergies Seasonal Allergies: No Past Medical History Surgeries: No Respiratory: Yes Asthma Cardiac: Yes High Cholesterol, Hypertension Neurological: Yes (NEUROPATHY IN HANDS AND FEET) Neuropathy Reproductive Disorders: No Sexually Transmitted Disease: No HIV/AIDS: No Genitourinary: No Gastrointestinal: No Musculoskeletal: No Endocrine: Yes Diabetes, Insulin dep HEENT: No Cancer: No Psychosocial: No Integumentary: No Blood Disorders: No Adverse Reaction/Blood Tranf: No Family Medical History No Pertinent Family Hx Physical Exam-Suspected Sepsis Physical Exam Vital Signs Vital Signs - First Documented 01/12/18 01/12/18 16:15 16:41 Temp 99.1 Pulse 105 Resp 18 B/P (MAP) 85/43 (57) Pulse Ox 100 O2 Delivery Room Air Capillary Refill : Height, Weight, BMI Height: 5'8.00" Weight: 150lbs. oz. 68.184680zc; BMI Method:Stated General Appearance: WD/WN, Moderate Distress Eyes: Bilateral Eye Normal Inspection, Bilateral Eye PERRL, Bilateral Eye EOMI HEENT: PERRL/EOMI, Normal ENT Inspection, Pharynx Normal; No Moist Mucous Membranes Neck: Full Range of Motion, Normal Inspection, Supple (mild bilateral), Tender Lateral Respiratory: Chest Non Tender, No Accessory Muscle Use, No Respiratory Distress , Rales (tristian) Cardiovascular: Regular Rate, Rhythm, Normal Peripheral Pulses Gastrointestinal: Normal Bowel Sounds, Non Tender, Soft Extremity: Normal Capillary Refill, No Pedal Edema Neurologic/Psychiatric: Alert, Oriented x3 Skin: normal color, warm/dry Focused Exam Sepsis Stage: Septic Shock Possible Source: Pulmonary Lactate Level 01/12/18 16:25: Lactic Acid Level 2.69*H Time of Focused Exam: 18:15 Respiratory: Chest Non Tender, No Accessory Muscle Use, No Respiratory Distress , Rales (Left) Cardiovascular: Regular Rate, Rhythm, No Edema, Normal Peripheral Pulses Capillary Refill: Less Than 3 Seconds Peripheral Pulses: 2+ Radial Pulses (R), 2+ Radial Pulses (L) Skin: normal color, warm/dry Lactic Acid Level Laboratory Tests Test 01/12/18 16:25 Lactic Acid Level 2.69 MMOL/L (0.50-2.00) *H Within 3hrs of presentation: Admin fluids, Admin 30ml/kg IBW due to BMI>30, Admin ABX, Blood cultures prior to ABX's, Focus exam, Lactate level Progress/Results/Core Measures Suspected Sepsis SIRS Temperature: Pulse: Respiratory Rate: Laboratory Tests 01/12/18 16:25: White Blood Count 12.2H Blood Pressure / Mean: 01/12/18 16:25: Lactic Acid Level 2.69*H Laboratory Tests 01/12/18 16:25: Creatinine 1.41H, INR Comment 1.4, Platelet Count 170, Total Bilirubin 0.9 Results/Orders Lab Results Laboratory Tests Test 01/12/18 16:19 01/12/18 16:25 Range/Units Glucometer 209 H 70-110 MG/DL White Blood Count 12.2 H 4.3-11.0 10^3/uL Red Blood Count 2.80 L 4.35-5.85 10^6/uL Hemoglobin 10.4 L 13.3-17.7 G/DL Hematocrit 29 L 40-54 % Mean Corpuscular Volume 105 H 80-99 FL Mean Corpuscular Hemoglobin 37 H 25-34 PG Mean Corpuscular Hemoglobin Concent 36 32-36 G/DL Red Cell Distribution Width 12.2 10.0-14.5 % Platelet Count 170 130-400 10^3/uL Mean Platelet Volume 9.6 7.4-10.4 FL Neutrophils (%) (Auto) 91 H 42-75 % Lymphocytes (%) (Auto) 7 L 12-44 % Monocytes (%) (Auto) 2 0-12 % Eosinophils (%) (Auto) 0 0-10 % Basophils (%) (Auto) 0 0-10 % Neutrophils # (Auto) 11.1 H 1.8-7.8 X 10^3 Lymphocytes # (Auto) 0.8 L 1.0-4.0 X 10^3 Monocytes # (Auto) 0.3 0.0-1.0 X 10^3 Eosinophils # (Auto) 0.0 0.0-0.3 10^3/uL Basophils # (Auto) 0.0 0.0-0.1 10^3/uL Neutrophils % (Manual) 74 % Lymphocytes % (Manual) 3 % Monocytes % (Manual) 1 % Eosinophils % (Manual) 0 % Basophils % (Manual) 0 % Metamyelocytes % 2 % Band Neutrophils 20 % Dohle Bodies SLIGHT Macrocytosis MODERATE Prothrombin Time 16.7 H 12.2-14.7 SEC INR Comment 1.4 0.8-1.4 Activated Partial Thromboplast Time 41 H 24-35 SEC Sodium Level 136 135-145 MMOL/L Potassium Level 3.7 3.6-5.0 MMOL/L Chloride Level 103 98-107 MMOL/L Carbon Dioxide Level 22 21-32 MMOL/L Anion Gap 11 5-14 MMOL/L Blood Urea Nitrogen 12 7-18 MG/DL Creatinine 1.41 H 0.60-1.30 MG/DL Estimat Glomerular Filtration Rate > 60 BUN/Creatinine Ratio 9 Glucose Level 189 H 70-105 MG/DL Lactic Acid Level 2.69 *H 0.50-2.00 MMOL/L Calcium Level 9.2 8.5-10.1 MG/DL Corrected Calcium 9.5 8.5-10.1 MG/DL Total Bilirubin 0.9 0.1-1.0 MG/DL Aspartate Amino Transf (AST/SGOT) 31 5-34 U/L Alanine Aminotransferase (ALT/SGPT) 28 0-55 U/L Alkaline Phosphatase 60 40-136 U/L Total Protein 7.3 6.4-8.2 GM/DL Albumin 3.6 3.2-4.5 GM/DL Micro Results Microbiology 01/12/18 Influenza Types A,B Antigen (MIGUEL) - Final, Complete My Orders Orders - MICHEL CHAVEZ Cbc With Automated Diff (01/12/18 16:20) Comprehensive Metabolic Panel (01/12/18 16:20) Blood Culture (01/12/18 16:20) Sputum Culture (01/12/18 16:20) Urinalysis (01/12/18 16:20) Urine Culture (01/12/18 16:20) Protime With Inr (01/12/18 16:20) Partial Thromboplastin Time (01/12/18 16:20) Chest 1 View, Ap/Pa Only (01/12/18 16:20) Acetaminophen Tablet (Tylenol Tablet) (01/12/18 16:30) Saline Lock/Iv-Start (01/12/18 16:20) Saline Lock/Iv-Start (01/12/18 16:20) Vital Signs Adult Sepsis Patie Q15M (01/12/18 16:20) Ondansetron Injection (Zofran Injectio (01/12/18 16:30) O2 (01/12/18 16:20) Remove Rings In Anticipation O (01/12/18 16:20) Lactic Acid Analyzer (01/12/18 16:20) Ns Iv 1000 Ml (Sodium Chloride 0.9%) (01/12/18 16:30) Ceftriaxone For Iv Use (Rocephin For I (01/12/18 16:30) Accucheck Stat ONCE (01/12/18 16:22) Albuterol/Ipra Inhalation Soln (Duoneb I (01/12/18 16:30) Svn Small Volume Nebulizer (01/12/18 16:28) Azithromycin Tablet (Zithromax Tablet) (01/12/18 17:00) Manual Differential (01/12/18 16:25) Ketorolac Injection (Toradol Injection) (01/12/18 17:15) Ns W/Kcl 20 Meq 1000 Ml (01/12/18 18:00) Medications Given in ED Current Medications Medications Dose Ordered Sig/Sherri Route Start Time Stop Time Status Last Admin Dose Admin Acetaminophen 1,000 mg ONCE PRN PO 01/12/18 16:30 01/12/18 16:38 DC 01/12/18 16:37 1,000 MG Albuterol/ Ipratropium 3 ml ONCE ONCE INH 01/12/18 16:30 01/12/18 16:31 DC 01/12/18 16:40 3 ML Azithromycin 500 mg ONCE ONCE PO 01/12/18 17:00 01/12/18 17:01 DC 01/12/18 17:06 500 MG Ceftriaxone Sodium 1000 mg/ Sodium Chloride 60 ml @ 100 mls/hr ONCE ONCE IV 01/12/18 16:30 01/12/18 17:05 DC 01/12/18 17:06 100 MLS/HR Ketorolac Tromethamine 15 mg ONCE ONCE IVP 01/12/18 17:15 01/12/18 17:16 DC 01/12/18 17:14 15 MG Ondansetron HCl 4 mg PRN PRN IV 01/12/18 16:30 01/12/18 16:38 DC 01/12/18 16:37 4 MG Sodium Chloride 2,000 ml @ 2,000 mls/hr ONCE ONCE IV 01/12/18 16:30 01/12/18 17:29 DC 01/12/18 16:38 2,000 MLS/HR Vital Signs/I&O 01/12/18 01/12/18 16:15 16:41 Temp 99.1 Pulse 105 Resp 18 B/P (MAP) 85/43 (57) Pulse Ox 100 96 O2 Delivery Room Air Capillary Refill : Progress Note : Time: 16:46 Progress Note 30 mL/kg bolus of fluids, suspect pneumonia versus influenza, repeat influenza swab and give Rocephin 1 g IV. We'll also give azithromycin. Breathing treatment and reassess. Blood sugar is 209 right now we'll get a urine but I doubt he is in ketoacidosis. Diagnostic Imaging Diagonstic Imaging: Xray (1v) Plain Films/CT/US/NM/MRI: chest Comments VIA [facility]. [place], [place] NAME: KEN SWANSON [facility] REC#: [id number] PT STATUS: REG ER : 1970 PHYSICIAN: MICHEL CHAVEZ MD ADMIT DATE: 01/12/18/ER Draft Date of Exam:01/12/18 CHEST 1 VIEW, AP/PA ONLY INDICATION: Cough and fever. EXAMINATION: Portable chest at 4:33 PM. FINDINGS: There appears to be infiltrate at the left lung base. The right lung is clear. There is no effusion or pneumothorax. IMPRESSION: Left basilar infiltrate, suspicious for pneumonia. Dictated on workstation # [id number] Dict: 01/12/18 1639 Trans: 01/12/18 1641 [id number] Interpreted by: JENNIFER WHITE MD Electronically signed by: Reviewed: Reviewed by Me Departure Communication (Admissions) Time/Spoke to Admitting Phy: 18:[address] Gandhi and she accepts the patient to the ICU continue fluid therapy, antibiotics. Impression Primary Impression: Pneumonia Qualified Codes: J18.1 - Lobar pneumonia, unspecified organism Additional Impression: Septic shock Disposition: ADMITTED INPATIENT Condition: Critical Admissions Decision to Admit Reason: Admit from ER (General) Decision to Admit/Date: Jan 12, 2018 Time/Decision to Admit Time: 18:09 Departure-Patient Inst. Referrals: [facility] (PCP/Family) Primary Care Physician Copy Copies To 1: RAD CASTRO TITUS J Jan 12, 2018 16:28
[2018-01-12] MEDS ORDERED: RT-ALBUTEROL/IPRATROPIUM 3 ML (DUONEB) VIAL INH ONE (16:30)
[2018-01-12] MEDS ORDERED: cefTRIAXone FOR IV USE 1,000 MG in NS (IVPB) 50 ML IV ONE (16:30)
[2018-01-12] MEDS ORDERED: NS IV 1000 ML 2,000 ML IV ONE (16:30)
[2018-01-12] MEDS ORDERED: ACETAMINOPHEN 500 MG TAB (TYLENOL) PO PRN (16:30)
[2018-01-12] MEDS ORDERED: ONDANSETRON 4 MG/2 ML (SDV) Z0FRAN IV PRN (16:30)
[2018-01-12 16:39] LABS: BASOPHILS % (AUTO) 0 % (0-10); EOSINOPHILS % (AUTO) 0 % (0-10); HEMATOCRIT 29 % (40-54); HEMOGLOBIN 10.4 G/DL (13.3-17.7); LYMPHOCYTES # (AUTO) 0.8 X 10^3 (1.0-4.0); LYMPHOCYTES % (AUTO) 7 % (12-44); MEAN CORPUSCULAR HEMOGLOBIN 37 PG (25-34); MEAN CORPUSCULAR HGB CONC 36 G/DL (32-36); MEAN CORPUSCULAR VOLUME 105 FL (80-99); MEAN PLATELET VOLUME 9.6 FL (7.4-10.4); MONOCYTES # (AUTO) 0.3 X 10^3 (0.0-1.0); MONOCYTES % (AUTO) 2 % (0-12); NEUTROPHILS # (AUTO) 11.1 X 10^3 (1.8-7.8); NEUTROPHILS % (AUTO) 91 % (42-75); PLATELET COUNT 170 10^3/uL (130-400); RED CELL DISTRIBUTION WIDTH 12.2 % (10.0-14.5); WHITE BLOOD COUNT 12.2 10^3/uL (4.3-11.0)
--- NOTE | 2018-01-12 16:41 | Diagnostic Imaging Report ---
INDICATION: Cough and fever. EXAMINATION: Portable chest at 4:33 PM. FINDINGS: There appears to be infiltrate at the left lung base. The right lung is clear. There is no effusion or pneumothorax. IMPRESSION: Left basilar infiltrate, suspicious for pneumonia. Dictated by: Dictated on workstation # [id number]
[2018-01-12 16:56] LABS: INR 1.4 (0.8-1.4); PROTHROMBIN TIME PATIENT 16.7 SEC (12.2-14.7)
[2018-01-12 16:58] LABS: ALANINE AMINOTRANSFERASE 28 U/L (0-55); ALBUMIN 3.6 GM/DL (3.2-4.5); ALKALINE PHOSPHATASE 60 U/L (40-136); BILIRUBIN,TOTAL 0.9 MG/DL (0.1-1.0); BUN/CREATININE RATIO 9; CALCIUM 9.2 MG/DL (8.5-10.1); CARBON DIOXIDE 22 MMOL/L (21-32); CHLORIDE 103 MMOL/L (98-107); CREATININE SERUM 1.41 MG/DL (0.60-1.30); GFR ESTIMATED > 60; GLUCOSE 189 MG/DL (70-105); POTASSIUM 3.7 MMOL/L (3.6-5.0); SODIUM 136 MMOL/L (135-145); TOTAL PROTEIN 7.3 GM/DL (6.4-8.2)
[2018-01-12] MEDS ORDERED: AZITHROMYCIN 250 MG TAB (ZITHROMAX) PO ONE (17:00)
[2018-01-12] MEDS ORDERED: KETOROLAC 30 MG/ML VIAL IVP ONE (17:15)
[2018-01-12 17:32] LABS: BAND NEUTROPHILS 20 %; BASOPHILS % (MANUAL) 0 %; EOSINOPHILS % (MANUAL) 0 %; LYMPHOCYTES % (MANUAL) 3 %; METAMYELOCYTES % 2 %; MONOCYTES % (MANUAL) 1 %; NEUTROPHILS % (MANUAL) 74 %
[2018-01-12] MEDS: NS W/KCL 20 MEQ/L 1,000 ML IV SCH ×2 (18:15→20:15)
[2018-01-12] MEDS ORDERED: RT-ALBUTEROL/IPRATROPIUM 3 ML (DUONEB) VIAL INH PRN (20:45)
[2018-01-12] MEDS: inSUlin ASPART (NovoLOG) 1 UNIT/0.01 ML (CHARGE PER UNIT) SC SCH (21:19)
[2018-01-13] VITALS (18 sets, daily range): BP systolic 91–132; BP diastolic 45–89
[2018-01-13 00:45] LABS: CLARITY,URINE CLEAR; COLOR,URINE YELLOW; GLUCOSE, URINE (UA) 3+ (NEGATIVE); KETONES,URINE 1+ (NEGATIVE); LEUKOCYTE ESTERASE ,URINE 1+ (NEGATIVE); NITRITE,URINE NEGATIVE (NEGATIVE); PH,URINE 5 (5-9); PROTEIN,URINE 3+ (NEGATIVE); UROBILINOGEN,URINE 4 MG/DL (NORMAL)
[2018-01-13 00:53] LABS: BILIRUBIN,URINE 1+ (NEGATIVE)
[2018-01-13 00:54] LABS: BACTERIA,URINE MODERATE /HPF
[2018-01-13 02:38] LABS: BASOPHILS % (AUTO) 0 % (0-10); EOSINOPHILS % (AUTO) 1 % (0-10); HEMATOCRIT 25 % (40-54); HEMOGLOBIN 8.9 G/DL (13.3-17.7); LYMPHOCYTES # (AUTO) 0.9 X 10^3 (1.0-4.0); LYMPHOCYTES % (AUTO) 11 % (12-44); MEAN CORPUSCULAR HEMOGLOBIN 38 PG (25-34); MEAN CORPUSCULAR HGB CONC 36 G/DL (32-36); MEAN CORPUSCULAR VOLUME 106 FL (80-99); MEAN PLATELET VOLUME 10.3 FL (7.4-10.4); MONOCYTES # (AUTO) 0.2 X 10^3 (0.0-1.0); MONOCYTES % (AUTO) 2 % (0-12); NEUTROPHILS # (AUTO) 7.3 X 10^3 (1.8-7.8); NEUTROPHILS % (AUTO) 87 % (42-75); PLATELET COUNT 130 10^3/uL (130-400); RED BLOOD COUNT 2.34 10^6/uL (4.35-5.85); RED CELL DISTRIBUTION WIDTH 12.1 % (10.0-14.5); WHITE BLOOD COUNT 8.4 10^3/uL (4.3-11.0)
[2018-01-13 02:56] LABS: BUN/CREATININE RATIO 18; CALCIUM 7.9 MG/DL (8.5-10.1); CARBON DIOXIDE 17 MMOL/L (21-32); CHLORIDE 113 MMOL/L (98-107); CREATININE SERUM 0.92 MG/DL (0.60-1.30); GFR ESTIMATED > 60; GLUCOSE 177 MG/DL (70-105); MAGNESIUM 1.8 MG/DL (1.8-2.4); PHOSPHORUS 1.9 MG/DL (2.3-4.7); POTASSIUM 3.9 MMOL/L (3.6-5.0); SODIUM 139 MMOL/L (135-145)
[2018-01-13] MEDS ORDERED: ACETAMINOPHEN 325 MG TABLET ONE (05:31)
[2018-01-13] MEDS ORDERED: KCL 20 MEQ TAB (K-DUR) PO SCH (06:00)
[2018-01-13] MEDS ORDERED: ACETAMINOPHEN 325 MG TABLET PO PRN (06:00)
[2018-01-13] MEDS ORDERED: MAGNESIUM 1 GM/100 ML IVPB 100 ML IV SCH (06:00)
[2018-01-13] MEDS ORDERED: POTASSIUM CL 10MEQ/50ML IVPB 50 ML IV SCH (06:00)
[2018-01-13] MEDS ORDERED: FLU QUADRIvalent (5+ YOA) 2018-2019 (AFLURIA) 0.5 ML IM ONE (06:45)
[2018-01-13] MEDS: inSUlin ASPART (NovoLOG) 1 UNIT/0.01 ML (CHARGE PER UNIT) SC SCH ×4 (06:58→21:55)
[2018-01-13] MEDS: RT-ALBUTEROL/IPRATROPIUM 3 ML (DUONEB) VIAL INH SCH ×4 (07:26→19:03)
[2018-01-13] MEDS ORDERED: ONDANSETRON 4 MG/2 ML (SDV) Z0FRAN IV PRN (07:45)
[2018-01-13] MEDS ORDERED: KETOROLAC 15 MG/ML VIAL IV PRN (07:45)
--- NOTE | 2018-01-13 07:52 | Diagnostic Imaging Report ---
INDICATION: Pneumonia, sepsis FINDINGS: Left lower lobed infiltrate presumed pneumonia. It is slightly more dense than on prior. The right lung and the upper lobes clear. No new abnormality. IMPRESSION: Left lower lobed pneumonia radiographically is likely at least mildly progressed in density. Dictated by: Dictated on workstation # [id number]
[2018-01-13] MEDS ORDERED: AZITHROMYCIN 500 MG/NS 250 ML IVPB IV SCH ×2 (08:00)
[2018-01-13] MEDS: NS W/KCL 20 MEQ/L 1,000 ML IV SCH ×4 (08:10→21:55)
[2018-01-13] MEDS: CEFEPIME 2 GM/NS 50 ML IVPB IV SCH ×6 (08:11→21:55)
--- NOTE | 2018-01-13 08:29 | History & Physicial (CHS) ---
HPI History of Present Illness: Patient presented to the ED yesterday with complaint of malaise, cough, shortness, of breath, fatigue. He was found to have PNA per CXR, low blood pressure, tachypnea and tachycardia. He was given a fluid bolus with improvement in his blood pressure, and he was admitted to the ICU with severe sepsis. The patient reports that he has been unwell since ~01/09 with no improvement in symptoms. He was seen at the walk in clinic on 01/11 with complaint of cough, sneezing, runny nose x3 days. He presented to the ED on the night of 01/12 after he had no improvement in his symptoms. Source: patient, RN/MD, RN notes reviewed, old records Exam Limitations: no limitations Date seen by provider: Jan 13, 2018 Time Seen by Provider: 14:23 Attending Physician Ana Choi DO [facility] [place] Consult Date of Admission Jan 12, 2018 at 18:28 Home Medications Home Medications Reviewed patient Home Medication Reconciliation performed by pharmacy medication reconciliations graphics edit technician and/or nursing. Patients Allergies have been reviewed. Allergies Coded Allergies: No Known Drug Allergies (Unverified , 02/04/13) RVA-Zdvtvf-Rqyokf Hx Patient Social History Marrital Status: single, cohabiting Number of Children: 0 Number of living children: 0 Living Status: lives with girlfriend Employed/Student: employed (works at [employer]) Alcohol Use: Past History Recreational Drug Use: No Smoking Status: Current Everyday Smoker Type Used: Cigarettes 2nd Hand Smoke Exposure: Yes Recent Foreign Travel: No Contact w/other who traveled: No Recent Hopitalizations: No Recent Infectious Disease Expo: No Physical Abuse Screen: No Sexual Abuse: No Immunizations Up To Date Tetanus Booster (TDap): Unknown Past Medical History Type II Diabetes with Neuropathy Medical Non-compliance Erectile Dysfunction Mixex Hyperlipidemia Osteoarthritis Hypertension Anxiety and Depression Gout Seasonal Allergies Tobacco Abuse Porokeratosis Past Surgical History: None Family Medical History Significant Family History: No Pertinent Family Hx Review of Systems (CHC) Constitutional: see HPI EENTM: nose congestion, throat pain Respiratory: cough, dyspnea on exertion, short of breath Cardiovascular: no symptoms reported Gastrointestinal: no symptoms reported Genitourinary: no symptoms reported Musculoskeletal: no symptoms reported Skin: no symptoms reported Psychiatric/Neurological: No Symptoms Reported Reviewed Test Results Reviewed Test Results Radiology Date of Exam: 01/12/18 CHEST 1 VIEW, AP/PA ONLY INDICATION: Cough and fever. EXAMINATION: Portable chest at 4:33 PM. FINDINGS: There appears to be infiltrate at the left lung base. The right lung is clear. There is no effusion or pneumothorax. Date of Exam: 01/13/18 CHEST 1 VIEW, AP/PA ONLY INDICATION: Pneumonia, sepsis FINDINGS: Left lower lobed infiltrate presumed pneumonia. It is slightly more dense than on prior. The right lung and the upper lobes clear. No new abnormality. IMPRESSION: Left lower lobed pneumonia radiographically is likely at least mildly progressed in density. IMPRESSION: Left basilar infiltrate, suspicious for pneumonia. Physical Exam-([facility]) Physical Exam Vital Signs Capillary Refill : Less Than 3 Seconds General Appearance: WD/WN, mild distress Eyes: Bilateral Eye Normal Inspection, Bilateral Eye EOMI HEENT: PERRL/EOMI, normal ENT inspection; No scleral icterus (R), No scleral icterus (L), No photophobia Neck: non-tender, full range of motion, supple, normal inspection Respiratory: chest non-tender, no respiratory distress, no accessory muscle use , decreased breath sounds, wheezing Cardiovascular: normal peripheral pulses, regular rate, rhythm, no edema, no gallop; No bradycardia Peripheral Pulses: 2+ Radial Pulses (R), 2+ Radial Pulses (L) Gastrointestinal: normal bowel sounds, non tender, soft, no organomegaly, no pulsatile mass; No guarding, No rebound Rectal: deferred Back: normal inspection, no CVA tenderness, no vertebral tenderness, muscle spasm Extremities: normal range of motion, non-tender, normal inspection, no pedal edema, no calf tenderness, normal capillary refill Neurologic/Psychiatric: aerial lineman II-XII nml as tested, no motor/sensory deficits, alert, normal mood/affect, oriented x 3 Skin: normal color, warm/dry Assessment/Plan Assessment/Plan Admission Dx Severe Sepsis Bilateral PNA Acute Renal Insufficiency Type II Diabetes Tobacco Abuse Medical Non-Compliance Admission Status: Inpatient Order (span 2 midnights) Reason for Inpatient Admission: antibiotics, fluid resuscitation (1) Severe sepsis Status: Acute Assessment & Plan: 01/13 -WBC 12.2 --> 8.4 -LLL PNA -hypotensive in ED, improved after fluid bolus -Cr elevated on admission -lactic acidosis on admission, now resolved (2) Type 2 diabetes mellitus Status: Chronic Qualifiers: (3) Medical non-compliance Status: Chronic (4) Tobacco abuse Status: Chronic Assessment & Plan: -cessation encouraged (5) Anxiety and depression Status: Chronic Assessment & Plan: 01/13 -resume home Zoloft (6) DVT prophylaxis Status: Acute Assessment & Plan: Lovenox daily (7) Anemia Status: Chronic Assessment & Plan: 01/13 -baseline Hgb 11.4 per clinic records -10.4 --> 8.9 Qualifiers: Qualified Codes: D64.9 - Anemia, unspecified (8) Acute renal insufficiency Status: Resolved Assessment & Plan: 01/13 -Cr 1.41 on admission --> 0.92 -RESOLVED (9) Lactic acidosis Status: Resolved Assessment & Plan: 2.69 --> 2.35 --> 2.3 --> 1.66 --> 1.73 --> 1.46 --> 0.92 -- > 0.89 (10) Hypophosphatemia Status: Acute Assessment & Plan: 01/13 -1.9, replace per protocol (11) Left lower lobe pneumonia Status: Acute Assessment & Plan: 01/13 -s/p rocephin x1 in ED -Azithromycin Day 2 -Cefepime Day 1 -start prednisone 40 mg PO daily x5 days Qualifiers: Qualified Codes: J18.1 - Lobar pneumonia, unspecified organism Clinical Quality Measures DVT/VTE Risk/Contraindication: Risk Factor Score Per Nursin RFS Level Per Nursing on Admit: 4+=Very High Copy Copies To 1: [facility]/ANA PALACIOS DO Jan 13, 2018 08:29
[2018-01-13] MEDS ORDERED: SERT50TA2 PO (10:19)
[2018-01-13] MEDS ORDERED: LOSA25TA6 PO (10:19)
[2018-01-13] MEDS ORDERED: INSU100I29 SQ (10:30)
[2018-01-13] MEDS ORDERED: METF500T8 PO (10:30)
[2018-01-13] MEDS ORDERED: PANT40TA2 PO (10:30)
[2018-01-13] MEDS ORDERED: SIMV20TA3 PO (10:40)
[2018-01-13] MEDS ORDERED: GABA-488 PO (10:40)
[2018-01-13] MEDS ORDERED: GLIP-173 PO (10:40)
[2018-01-13] MEDS ORDERED: CYCLOBENZAPRINE 10 MG (FLEXERIL) TAB PO PRN (14:45)
[2018-01-13] MEDS ORDERED: predniSONE 20 MG TAB PO NR (14:45)
[2018-01-13] MEDS ORDERED: RAMELTEON 8 MG (ROZEREM) TAB PO PRN (15:00)
[2018-01-13] MEDS ORDERED: ENOXAPARIN 40 MG/0.4 ML (LOVENOX) SYR SC SCH (15:00)
[2018-01-13] MEDS: HYDROcodone/APAP 5 MG/325 MG (LORTAB) TAB PO PRN (17:35)
[2018-01-13] MEDS ORDERED: GABAPENTIN 300 MG (NEURONTIN) CAP PO SCH (21:00)
[2018-01-13] MEDS ORDERED: inSUlin DETERMIR 1 UNIT/0.01 ML (LEVEMIR) CHARGE PER UNIT SQ SCH (21:00)
[2018-01-13] MEDS ORDERED: SIMvastatin 20 MG (ZOCOR) TAB PO SCH (21:00)
[2018-01-14] VITALS: BP 128/66
[2018-01-14] MEDS: HYDROcodone/APAP 5 MG/325 MG (LORTAB) TAB PO PRN (02:07)
[2018-01-14 04:00] VITALS: BP 136/78
[2018-01-14 04:39] LABS: BASOPHILS % (AUTO) 0 % (0-10); EOSINOPHILS % (AUTO) 0 % (0-10); HEMATOCRIT 25 % (40-54); HEMOGLOBIN 8.6 G/DL (13.3-17.7); LYMPHOCYTES # (AUTO) 0.6 X 10^3 (1.0-4.0); LYMPHOCYTES % (AUTO) 9 % (12-44); MEAN CORPUSCULAR HEMOGLOBIN 37 PG (25-34); MEAN CORPUSCULAR HGB CONC 35 G/DL (32-36); MEAN CORPUSCULAR VOLUME 107 FL (80-99); MEAN PLATELET VOLUME 9.9 FL (7.4-10.4); MONOCYTES # (AUTO) 0.3 X 10^3 (0.0-1.0); MONOCYTES % (AUTO) 4 % (0-12); NEUTROPHILS # (AUTO) 5.6 X 10^3 (1.8-7.8); NEUTROPHILS % (AUTO) 87 % (42-75); PLATELET COUNT 130 10^3/uL (130-400); RED BLOOD COUNT 2.31 10^6/uL (4.35-5.85); RED CELL DISTRIBUTION WIDTH 12.4 % (10.0-14.5); WHITE BLOOD COUNT 6.5 10^3/uL (4.3-11.0)
[2018-01-14 04:57] LABS: BUN/CREATININE RATIO 17; CALCIUM 8.5 MG/DL (8.5-10.1); CARBON DIOXIDE 16 MMOL/L (21-32); CHLORIDE 112 MMOL/L (98-107); CREATININE SERUM 0.82 MG/DL (0.60-1.30); GFR ESTIMATED > 60; GLUCOSE 307 MG/DL (70-105); MAGNESIUM 1.7 MG/DL (1.8-2.4); POTASSIUM 4.7 MMOL/L (3.6-5.0); SODIUM 136 MMOL/L (135-145)
[2018-01-14] MEDS: inSUlin ASPART (NovoLOG) 1 UNIT/0.01 ML (CHARGE PER UNIT) SC SCH ×2 (06:04→12:47)
[2018-01-14] MEDS: NS W/KCL 20 MEQ/L 1,000 ML IV SCH (06:04)
--- NOTE | 2018-01-14 06:58 | Diagnostic Imaging Report ---
INDICATION: Pneumonia. Followup COMPARISON: 01/13/2018 FINDINGS: Single frontal radiographic view of the chest was obtained and continues to show consolidative opacity within left lung base. Overall, aeration may be slightly improved. Right lung remains clear. There is no large effusion or pneumothorax on either side. Cardiac silhouette and pulmonary vasculature within normal limits. Bony structures show no gross acute abnormalities. IMPRESSION: 1. Persistent infiltrate within the left lung base, but with perhaps some slight interval improved aeration. Dictated by: Dictated on workstation # [id number]
[2018-01-14] MEDS ORDERED: predniSONE 20 MG TAB PO SCH (07:00)
[2018-01-14] MEDS: RT-ALBUTEROL/IPRATROPIUM 3 ML (DUONEB) VIAL INH SCH ×3 (07:20→15:13)
[2018-01-14 08:00] VITALS: BP 151/83
[2018-01-14] MEDS: CEFEPIME 2 GM/NS 50 ML IVPB IV SCH ×2 (08:54)
[2018-01-14] MEDS ORDERED: SERTRALINE 50 MG (ZOLOFT) TABLET PO SCH (09:00)
[2018-01-14] MEDS ORDERED: AZITHROMYCIN 250 MG TAB (ZITHROMAX) PO SCH (09:00)
[2018-01-14] MEDS: MAGNESIUM 1 GM/100 ML IVPB 100 ML IV SCH ×2 (09:34→10:47)
[2018-01-14 12:00] VITALS: BP 149/86
[2018-01-14] MEDS ORDERED: FLU QUADRIvalent (5+ YOA) 2018-2019 (AFLURIA) 0.5 ML IM ONE (13:50)
--- NOTE | 2018-01-14 14:59 | Discharge Summary ---
Diagnosis/Chief Complaint Date of Admission Jan 12, 2018 at 18:28 Date of Discharge 01/14/18 Admission Diagnosis Admission Diagnosis Severe Sepsis Bilateral PNA Acute Renal Insufficiency Type II Diabetes Tobacco Abuse Medical Non-Compliance Discharge Diagnosis (1) Severe sepsis Status: Acute Assessment & Plan: 01/13 -WBC 12.2 --> 8.4 -LLL PNA -hypotensive in ED, improved after fluid bolus -Cr elevated on admission -lactic acidosis on admission, now resolved 01/14 -WBC 12.2 --> 8.4 --> 6.5 -CXR with improvement -blood pressure maintained without further intervention (2) Type 2 diabetes mellitus Status: Chronic Qualifiers: -last HgbA1C in August 5.7 -pt noncompliant with home medications -resume home medications on discharge and follow up with PCP. (3) Medical non-compliance Status: Chronic (4) Tobacco abuse Status: Chronic Assessment & Plan: -cessation encouraged (5) Anxiety and depression Status: Chronic Assessment & Plan: 01/13 -resume home Zoloft (6) DVT prophylaxis Status: Acute Assessment & Plan: Lovenox daily (7) Anemia Status: Chronic Assessment & Plan: 01/13 -baseline Hgb 11.4 per clinic records -10.4 --> 8.9 01/14 -10.4 --> 8.9 --8.6 -asymptomatic Qualifiers: Qualified Codes: D64.9 - Anemia, unspecified (8) Acute renal insufficiency Status: Resolved Assessment & Plan: 01/13 -Cr 1.41 on admission --> 0.92 -RESOLVED (9) Lactic acidosis Status: Resolved Assessment & Plan: 2.69 --> 2.35 --> 2.3 --> 1.66 --> 1.73 --> 1.46 --> 0.92 -- > 0.89 (10) Hypophosphatemia Status: Acute Assessment & Plan: 01/13 -1.9, replace per protocol (11) Left lower lobe pneumonia Status: Acute Assessment & Plan: 01/13 -s/p rocephin x1 in ED -Azithromycin Day 2 -Cefepime Day 1 -start prednisone 40 mg PO daily x5 days 01/14 -Azithromycin Day 3 -Cefepime Day 2 -Prednisone Day 2 -CXR with improvement -blood cultures with NGTD -pt requesting discharge, tolerating PO, afebrile and VSS -will discharge on PO abx and remainder of prednisone burst, follow up in clinic as scheduled Qualifiers: Qualified Codes: J18.1 - Lobar pneumonia, unspecified organism (12) Back Pain Status: Acute Assessment & Plan: -Yeaddiss PRN -will discharge with short supply -2 doses in 22 hours -likely secondary to coughing (13) Hypomagnesemia Status: Acute Assessment & Plan: -replaced Chief Complaint/HPI Chief Complaint/HPI Patient presented to the ED yesterday with complaint of malaise, cough, shortness, of breath, fatigue. He was found to have PNA per CXR, low blood pressure, tachypnea and tachycardia. He was given a fluid bolus with improvement in his blood pressure, and he was admitted to the ICU with severe sepsis. The patient reports that he has been unwell since ~01/09 with no improvement in symptoms. He was seen at the walk in clinic on 01/11 with complaint of cough, sneezing, runny nose x3 days. He presented to the ED on the night of 01/12 after he had no improvement in his symptoms. Discharge Summary-Simple/Stand Consultations Discharge Physical Examination Allergies: Coded Allergies: No Known Drug Allergies (Unverified , 02/04/13) Vitals & I&Os Vital Sign - Last 12Hours Date Time Temp Pulse Resp B/P (MAP) Pulse Ox O2 Delivery O2 Flow Rate FiO2 01/14/18 10:29 97 Room Air 01/14/18 08:00 97.7 91 16 151/83 (105) 01/12/18 20:15 21 Intake and Output 01/14/18 00:00 Intake Total 1590 ml Output Total 400 ml Balance 1190 ml General Appearance: Alert, Oriented X3, Cooperative, No Acute Distress HEENT: Atraumatic, EOMI, Mucous Memb Moist/Lamar Respiratory: Other (diminished in bases, L>R) Cardiovascular: Regular Rate, Normal S1, Normal S2 Abdominal: Normal Bowel Sounds, Soft, No Tenderness Extremities: No Cyanosis, Normal Pulses, No Tenderness/Swelling Neuro: Normal Speech, Normal Tone, Sensation Intact, Cranial Nerves 3-12 NL Psych/Mental Status: Mental Status NL, Mood NL Hospital Course See final discharge diagnosis. Labs Microbiology 01/12/18 Blood Culture - Preliminary, Resulted No growth 01/12/18 Blood Culture - Preliminary, Resulted No growth 01/12/18 MRSA Screen - Final, Complete MRSA not isolated 01/12/18 Influenza Types A,B Antigen (MIGUEL) - Final, Complete 01/13/18 Urine Culture - Final, Complete NO GROWTH Laboratory Tests Test 01/12/18 16:19 01/12/18 16:25 01/12/18 18:40 01/12/18 20:51 Range/Units Glucometer 209 H 70-110 MG/DL White Blood Count 12.2 H 4.3-11.0 10^3/uL Red Blood Count 2.80 L 4.35-5.85 10^6/uL Hemoglobin 10.4 L 13.3-17.7 G/DL Hematocrit 29 L 40-54 % Mean Corpuscular Volume 105 H 80-99 FL Mean Corpuscular Hemoglobin 37 H 25-34 PG Mean Corpuscular Hemoglobin Concent 36 32-36 G/DL Red Cell Distribution Width 12.2 10.0-14.5 % Platelet Count 170 130-400 10^3/uL Mean Platelet Volume 9.6 7.4-10.4 FL Neutrophils (%) (Auto) 91 H 42-75 % Lymphocytes (%) (Auto) 7 L 12-44 % Monocytes (%) (Auto) 2 0-12 % Eosinophils (%) (Auto) 0 0-10 % Basophils (%) (Auto) 0 0-10 % Neutrophils # (Auto) 11.1 H 1.8-7.8 X 10^3 Lymphocytes # (Auto) 0.8 L 1.0-4.0 X 10^3 Monocytes # (Auto) 0.3 0.0-1.0 X 10^3 Eosinophils # (Auto) 0.0 0.0-0.3 10^3/uL Basophils # (Auto) 0.0 0.0-0.1 10^3/uL Neutrophils % (Manual) 74 % Lymphocytes % (Manual) 3 % Monocytes % (Manual) 1 % Eosinophils % (Manual) 0 % Basophils % (Manual) 0 % Metamyelocytes % 2 % Band Neutrophils 20 % Dohle Bodies SLIGHT Macrocytosis MODERATE Prothrombin Time 16.7 H 12.2-14.7 SEC INR Comment 1.4 0.8-1.4 Activated Partial Thromboplast Time 41 H 24-35 SEC Sodium Level 136 135-145 MMOL/L Potassium Level 3.7 3.6-5.0 MMOL/L Chloride Level 103 98-107 MMOL/L Carbon Dioxide Level 22 21-32 MMOL/L Anion Gap 11 5-14 MMOL/L Blood Urea Nitrogen 12 7-18 MG/DL Creatinine 1.41 H 0.60-1.30 MG/DL Estimat Glomerular Filtration Rate > 60 BUN/Creatinine Ratio 9 Glucose Level 189 H 70-105 MG/DL Lactic Acid Level 2.69 *H 2.35 *H 2.30 *H 0.50-2.00 MMOL/L Calcium Level 9.2 8.5-10.1 MG/DL Corrected Calcium 9.5 8.5-10.1 MG/DL Total Bilirubin 0.9 0.1-1.0 MG/DL Aspartate Amino Transf (AST/SGOT) 31 5-34 U/L Alanine Aminotransferase (ALT/SGPT) 28 0-55 U/L Alkaline Phosphatase 60 40-136 U/L Total Protein 7.3 6.4-8.2 GM/DL Albumin 3.6 3.2-4.5 GM/DL Test 01/12/18 21:15 01/12/18 22:40 01/13/18 00:35 01/13/18 02:30 Range/Units Glucometer 196 H 70-110 MG/DL Lactic Acid Level 1.66 1.73 1.46 0.50-2.00 MMOL/L Urine Color YELLOW Urine Clarity CLEAR Urine pH 5 5-9 Urine Specific [place] 1.030 H 1.016-1.022 Urine Protein 3+ H NEGATIVE Urine Glucose (UA) 3+ H NEGATIVE Urine Ketones 1+ H NEGATIVE Urine Nitrite NEGATIVE NEGATIVE Urine Bilirubin 1+ H NEGATIVE Urine Urobilinogen 4 H NORMAL MG/DL Urine Leukocyte Esterase 1+ H NEGATIVE Urine RBC (Auto) NEGATIVE NEGATIVE Urine RBC NONE /HPF Urine WBC 5-10 H /HPF Urine Squamous Epithelial Cells 2-5 /HPF Urine Crystals NONE /LPF Urine Bacteria MODERATE H /HPF Urine Casts PRESENT /LPF Urine Hyaline Casts 5-10 H /LPF Urine Mucus MODERATE H /LPF Urine Culture Indicated NO White Blood Count 8.4 4.3-11.0 10^3/uL Red Blood Count 2.34 L 4.35-5.85 10^6/uL Hemoglobin 8.9 L 13.3-17.7 G/DL Hematocrit 25 L 40-54 % Mean Corpuscular Volume 106 H 80-99 FL Mean Corpuscular Hemoglobin 38 H 25-34 PG Mean Corpuscular Hemoglobin Concent 36 32-36 G/DL Red Cell Distribution Width 12.1 10.0-14.5 % Platelet Count 130 130-400 10^3/uL Mean Platelet Volume 10.3 7.4-10.4 FL Neutrophils (%) (Auto) 87 H 42-75 % Lymphocytes (%) (Auto) 11 L 12-44 % Monocytes (%) (Auto) 2 0-12 % Eosinophils (%) (Auto) 1 0-10 % Basophils (%) (Auto) 0 0-10 % Neutrophils # (Auto) 7.3 1.8-7.8 X 10^3 Lymphocytes # (Auto) 0.9 L 1.0-4.0 X 10^3 Monocytes # (Auto) 0.2 0.0-1.0 X 10^3 Eosinophils # (Auto) 0.0 0.0-0.3 10^3/uL Basophils # (Auto) 0.0 0.0-0.1 10^3/uL Sodium Level 139 135-145 MMOL/L Potassium Level 3.9 3.6-5.0 MMOL/L Chloride Level 113 #H 98-107 MMOL/L Carbon Dioxide Level 17 L 21-32 MMOL/L Anion Gap 9 5-14 MMOL/L Blood Urea Nitrogen 17 7-18 MG/DL Creatinine 0.92 0.60-1.30 MG/DL Estimat Glomerular Filtration Rate > 60 BUN/Creatinine Ratio 18 Glucose Level 177 H 70-105 MG/DL Calcium Level 7.9 L 8.5-10.1 MG/DL Phosphorus Level 1.9 L 2.3-4.7 MG/DL Magnesium Level 1.8 1.8-2.4 MG/DL Test 01/13/18 04:39 01/13/18 07:15 01/13/18 11:40 01/13/18 15:31 Range/Units Lactic Acid Level 0.92 0.89 0.50-2.00 MMOL/L Glucometer 281 H 122 H 70-110 MG/DL Test 01/13/18 21:39 01/14/18 04:05 01/14/18 05:50 01/14/18 11:55 Range/Units Glucometer 340 H 297 H 461 *H 70-110 MG/DL White Blood Count 6.5 4.3-11.0 10^3/uL Red Blood Count 2.31 L 4.35-5.85 10^6/uL Hemoglobin 8.6 L 13.3-17.7 G/DL Hematocrit 25 L 40-54 % Mean Corpuscular Volume 107 H 80-99 FL Mean Corpuscular Hemoglobin 37 H 25-34 PG Mean Corpuscular Hemoglobin Concent 35 32-36 G/DL Red Cell Distribution Width 12.4 10.0-14.5 % Platelet Count 130 130-400 10^3/uL Mean Platelet Volume 9.9 7.4-10.4 FL Neutrophils (%) (Auto) 87 H 42-75 % Lymphocytes (%) (Auto) 9 L 12-44 % Monocytes (%) (Auto) 4 0-12 % Eosinophils (%) (Auto) 0 0-10 % Basophils (%) (Auto) 0 0-10 % Neutrophils # (Auto) 5.6 1.8-7.8 X 10^3 Lymphocytes # (Auto) 0.6 L 1.0-4.0 X 10^3 Monocytes # (Auto) 0.3 0.0-1.0 X 10^3 Eosinophils # (Auto) 0.0 0.0-0.3 10^3/uL Basophils # (Auto) 0.0 0.0-0.1 10^3/uL Sodium Level 136 135-145 MMOL/L Potassium Level 4.7 3.6-5.0 MMOL/L Chloride Level 112 H 98-107 MMOL/L Carbon Dioxide Level 16 L 21-32 MMOL/L Anion Gap 8 5-14 MMOL/L Blood Urea Nitrogen 14 7-18 MG/DL Creatinine 0.82 0.60-1.30 MG/DL Estimat Glomerular Filtration Rate > 60 BUN/Creatinine Ratio 17 Glucose Level 307 H 70-105 MG/DL Calcium Level 8.5 8.5-10.1 MG/DL Magnesium Level 1.7 L 1.8-2.4 MG/DL Radiology Reviewed Date of Exam: 01/12/18 CHEST 1 VIEW, AP/PA ONLY INDICATION: Cough and fever. EXAMINATION: Portable chest at 4:33 PM. FINDINGS: There appears to be infiltrate at the left lung base. The right lung is clear. There is no effusion or pneumothorax. Date of Exam: 01/13/18 CHEST 1 VIEW, AP/PA ONLY INDICATION: Pneumonia, sepsis FINDINGS: Left lower lobed infiltrate presumed pneumonia. It is slightly more dense than on prior. The right lung and the upper lobes clear. No new abnormality. IMPRESSION: Left lower lobed pneumonia radiographically is likely at least mildly progressed in density. Date of Exam: 01/14/18 CHEST 1 VIEW, AP/PA ONLY INDICATION: Pneumonia. Followup COMPARISON: 01/13/2018 FINDINGS: Single frontal radiographic view of the chest was obtained and continues to show consolidative opacity within left lung base. Overall, aeration may be slightly improved. Right lung remains clear. There is no large effusion or pneumothorax on either side. Cardiac silhouette and pulmonary vasculature within normal limits. Bony structures show no gross acute abnormalities. IMPRESSION: 1. Persistent infiltrate within the left lung base, but with perhaps some slight interval improved aeration. Discharge Instructions to patient/family Please see electronic discharge instructions given to patient. Discharge Medications Reviewed and agree with Discharge Medication list on patient's Discharge Instruction sheet Clinical Quality Measures DVT/VTE Risk/Contraindication: Risk Factor Score Per Nursin RFS Level Per Nursing on Admit: 4+=Very High Copy Copies To 1: [facility]/RAQUEL PALACIOS DO Jan 14, 2018 14:58
[2018-01-14] MEDS ORDERED: PRD20T PO (15:03)
[2018-01-14] MEDS ORDERED: RT-ALBUINH IH (15:03)
[2018-01-14] MEDS ORDERED: ACHD5005 PO (15:03)
[2018-01-14] MEDS ORDERED: CYCL10TA9 PO (15:03)
[2018-01-14] MEDS ORDERED: LEVO750T9 PO (15:12)
[2018-01-14] MEDS ORDERED: AZIT250T12 PO (15:12)
[2018-01-14] MEDS ORDERED: CODE118S4 PO (15:12)
[2018-01-14] MEDS ORDERED: BENZ100C18 PO (15:12)
--- NOTE | 2018-01-14 15:12 | Discharge Instructions ---
Discharge [facility] Discharge Medications New, Converted or Re-Newed RX: Transmitted to Pharmacy (Hydrocodone rx on chart ) New Medications: Albuterol Sulfate (Proair Hfa) 1 Puff Puff 2 PUFF IH Q4H PRN for SHORTNESS OF BREATH for 30 Days, #1 INHALER 0 Refills 1 PUFF = 90 MCG Azithromycin (Azithromycin) 250 Mg Tablet 500 MG PO DAILY for 3 Days, #6 TAB Benzonatate (Tessalon Perles) 100 Mg Capsule 100 MG PO TID PRN for cough for 10 Days, #30 CAP 0 Refills Levofloxacin (Levaquin) 750 Mg Tablet 750 MG PO DAILY for 5 Days, #5 TAB Promethazine HCl/Codeine (Promethazine-Codeine Syrup) 118 Ml Syrup 5 ML PO Q6H PRN for cough for 10 Days, #200 ML 0 Refills Cyclobenzaprine HCl (Cyclobenzaprine HCl) 10 Mg Tablet 10 MG PO TID PRN for MUSCLE SPASM OR BACK PAIN for 10 Days, #30 TAB Hydrocodone Bit/Acetaminophen (Hydrocodone/Acetaminophen 5/325mg Tablet) 1 Tab Tab 1-2 TAB PO Q6HR PRN for PAIN-MODERATE for 5 Days, #30 TAB Prednisone (Prednisone) 20 Mg Tab 40 MG PO DAILY@0700 for 3 Days, #6 TAB Continued Medications: Gabapentin (Gabapentin) 300 Mg Capsule 300 MG PO HS, CAP Glipizide (Glipizide Xl) 10 Mg Tab.er.24 10 MG PO DAILY, TAB Insulin Detemir (Levemir Flextouch) 100 Unit/1 Ml Insuln.pen 30 UNIT SQ DAILY PRN for BLOOD SUGAR, EA Losartan Potassium (Losartan Potassium) 25 Mg Tablet 12.5 MG PO DAILY, TAB TAKES 1/2 (25MG) TABLET Metformin HCl (Metformin HCl ER) 500 Mg Tab.er.24h 500 MG PO DAILY, TAB Pantoprazole Sodium (Protonix) 40 Mg Tablet.dr 40 MG PO DAILY PRN for HEARTBURN, TAB Sertraline HCl (Zoloft) 50 Mg Tablet 50 MG PO DAILY, TAB Simvastatin (Simvastatin) 20 Mg Tablet 20 MG PO DAILY, TAB Patient Instructions Patient Instructions -take medications as prescribed -FINISH ALL ANTIBIOTICS -keep follow up appointment as scheduled -avoid tobacco or exposure to second hand smoke Goal/Follow Up Appt: Dr. Mcintyre 01/21 at 1:20 pm Return to The Hospital For: chest pain or pressure, shortness of breath unrelieved by medications, nausea or vomiting that makes you unable to keep down medications or clear liquids for more than 12-24 hours, severe pain uncontrolled by medication, if directed by director of laboratory operations provider, or with any other emergent complaints or concerns Activity & Diet Discharge Diet: Low Sodium Diet, ADA Diet Activity as Tolerated: Yes Orders-Post D/C & Referrals Pneu Vac Indicated: Yes Copy Copies To 1: ALFREDITO MCINTYRE MD, MARGARET E DO Jan 14, 2018 15:08
--- NOTE | 2018-01-19 11:44 | Physician Query-Final Dx ---
JIMI GEORGES 01/19/18 1144: Final Diagnosis Give Final Diagnosis Please give Final Diagnosis RAQUEL LARSEN DO 01/23/18 1509: Final Diagnosis Give Final Diagnosis (1) Severe sepsis Status: Acute Assessment & Plan: 01/13 -WBC 12.2 --> 8.4 -LLL PNA -hypotensive in ED, improved after fluid bolus -Cr elevated on admission -lactic acidosis on admission, now resolved 01/14 -WBC 12.2 --> 8.4 --> 6.5 -CXR with improvement -blood pressure maintained without further intervention (2) Type 2 diabetes mellitus Status: Chronic Qualifiers: -last HgbA1C in August 5.7 -pt noncompliant with home medications -resume home medications on discharge and follow up with PCP. (3) Medical non-compliance Status: Chronic (4) Tobacco abuse Status: Chronic Assessment & Plan: -cessation encouraged (5) Anxiety and depression Status: Chronic Assessment & Plan: 01/13 -resume home Zoloft (6) DVT prophylaxis Status: Acute Assessment & Plan: Lovenox daily (7) Anemia Status: Chronic Assessment & Plan: 01/13 -baseline Hgb 11.4 per clinic records -10.4 --> 8.9 01/14 -10.4 --> 8.9 --8.6 -asymptomatic Qualifiers: Qualified Codes: D64.9 - Anemia, unspecified (8) Acute renal insufficiency Status: Resolved Assessment & Plan: 01/13 -Cr 1.41 on admission --> 0.92 -RESOLVED (9) Lactic acidosis Status: Resolved Assessment & Plan: 2.69 --> 2.35 --> 2.3 --> 1.66 --> 1.73 --> 1.46 --> 0.92 -- > 0.89 (10) Hypophosphatemia Status: Acute Assessment & Plan: 01/13 -1.9, replace per protocol (11) Left lower lobe pneumonia Status: Acute Assessment & Plan: 01/13 -s/p rocephin x1 in ED -Azithromycin Day 2 -Cefepime Day 1 -start prednisone 40 mg PO daily x5 days 01/14 -Azithromycin Day 3 -Cefepime Day 2 -Prednisone Day 2 -CXR with improvement -blood cultures with NGTD -pt requesting discharge, tolerating PO, afebrile and VSS -will discharge on PO abx and remainder of prednisone burst, follow up in clinic as scheduled Qualifiers: Qualified Codes: J18.1 - Lobar pneumonia, unspecified organism (12) Back Pain Status: Acute Assessment & Plan: -Enigma PRN -will discharge with short supply -2 doses in 22 hours -likely secondary to coughing (13) Hypomagnesemia Status: Acute Assessment & Plan: -JIMI Almeida Jan 19, 2018 11:44 RAQUEL LARSEN DO Jan 23, 2018 15:09
== END 2018-01-14 15:40 | disposition home or self-care (01) | DRG 871 ==
LOC: EDUNIT# 15:57 → ER 15:58 → ICU 18:28 → 4TH 01-13 15:08
PROVIDERS: ADMIT Family Medicine; ATTEND Family Medicine
DX: A41.9 Sepsis, unspecified organism (principal); R65.21 Severe sepsis with septic shock; J18.1 Lobar pneumonia, unspecified organism; E87.2 Acidosis; J45.909 Unspecified asthma, uncomplicated; F17.210 Nicotine dependence, cigarettes, uncomplicated; I10 Essential (primary) hypertension; E11.42 Type 2 diabetes mellitus with diabetic polyneuropathy; E78.00 Pure hypercholesterolemia, unspecified; F41.9 Anxiety disorder, unspecified; F32.9 Major depressive disorder, single episode, unspecified; D64.9 Anemia, unspecified; N28.9 Disorder of kidney and ureter, unspecified; E83.39 Other disorders of phosphorus metabolism; E83.42 Hypomagnesemia; Z91.19 Patient's noncompliance with other medical treatment and regimen; Z23 Encounter for immunization
CPT/HCPCS: 36415; 71045; 80048; 80053; 81000; 82962; 83605; 83735; 84100; 85007; 85025; 85027; 85610; 85730; 87040; 87081; 87088; 87804; 90686; 94640; 94760; 96361; 96374; 96375

== ENCOUNTER 2019-01-15 20:12 | Emergency (ER) | payer BC, OTHER ==
[~2019-01-15] VITALS: Ht 172.2 cm; Wt 65.9 kg
[~2019-01-15 20:12] MED LIST changes: +ACHD5005 PO; +AZIT250T12 PO; +BENZ100C18 PO; +CODE118S4 PO; +GABA-488 PO; +GLIP-173 PO; +INSU100I29 SQ; +LEVO750T9 PO; +LOSA25TA41 PO; +METF500T8 PO; +PANT40TA2 PO; +PRD20T PO; +RT-ALBUINH IH; +SERT50TA2 PO; +SIMV20TA3 PO
--- NOTE | 2019-01-15 20:57 | ED Cough/URI ---
General Chief Complaint: Cough/Cold/Flu Symptoms Stated Complaint: CONGESTION Nursing Triage Note: PT AMB TO TRIAGE WITH COMPLAINT OF COUGH AND CONGESTION FOR THE LAST FEW WEEKS. Sepsis Screen: No Definite Risk History of Present Illness Date Seen by Provider: Jan 15, 2019 Time Seen by Provider: 20:30 Initial Comments 48-year-old -[place] male reports approximately 2 week history of cough and congestion. He believes it started with allergy symptoms and has progressed. He has not been taking any [id number] medications. He denies any fevers. Timing/Duration: intermittent Severity/Quality: productive cough Prior Episodes/Possible Cause: occasional episodes Associated Symptoms: cough Allergies and Home Medications Allergies Coded Allergies: No Known Drug Allergies (Unverified , 02/04/13) Home Medications Albuterol Sulfate 1 Puff Puff, 2 PUFF IH Q4H PRN for SHORTNESS OF BREATH 1 PUFF = 90 MCG Prescribed by: RAQUEL LARSEN on 01/14/18 150 Azithromycin 250 Mg Tablet, 500 MG PO DAILY Prescribed by: RAQUEL LARSEN on 01/14/18 151 Benzonatate 100 Mg Capsule, 100 MG PO TID PRN for cough Prescribed by: RAQUEL LARSEN on 01/14/18 151 Cyclobenzaprine HCl 10 Mg Tablet, 10 MG PO TID PRN for MUSCLE SPASM OR BACK PAIN Prescribed by: RAQUEL LARSEN on 01/14/18 150 Gabapentin 300 Mg Capsule, 300 MG PO HS, (Reported) Glipizide 10 Mg Tab.er.24, 10 MG PO DAILY, (Reported) Hydrocodone Bit/Acetaminophen 1 Tab Tab, 1-2 TAB PO Q6HR PRN for PAIN-MODERATE Prescribed by: RAQUEL LARSEN on 01/14/18 150 Insulin Detemir 100 Unit/1 Ml Insuln.pen, 30 UNIT SQ DAILY PRN for BLOOD SUGAR, (Reported) Levofloxacin 750 Mg Tablet, 750 MG PO DAILY Prescribed by: RAQUEL LARSEN on 01/14/181511 Losartan Potassium 25 Mg Tablet, 12.5 MG PO DAILY, (Reported) TAKES 1/2 (25MG) TABLET Metformin HCl 500 Mg Tab.er.24h, 500 MG PO DAILY, (Reported) Pantoprazole Sodium 40 Mg Tablet.dr, 40 MG PO DAILY PRN for HEARTBURN, (Reported) Prednisone 20 Mg Tab, 40 MG PO DAILY@0700 Prescribed by: RAQUEL LARSEN on 01/14/18 1503 Promethazine HCl/Codeine 118 Ml Syrup, 5 ML PO Q6H PRN for cough Prescribed by: RAQUEL LARSEN on 01/14/18 1512 Sertraline HCl 50 Mg Tablet, 50 MG PO DAILY, (Reported) Simvastatin 20 Mg Tablet, 20 MG PO DAILY, (Reported) Patient Home Medication List Home Medication List Reviewed: Yes Review of Systems Review of Systems Constitutional: no symptoms reported, see HPI Respiratory: see HPI, cough All Other Systems Reviewed Negative Unless Noted: Yes Past Ttempif-Rqwmjc-Deanhx Hx Past Med/Social Hx: Reviewed Nursing Past Med/Soc Hx Patient Social History Alcohol Use: Occasionally Uses Number of Drinks Today: GG Alcohol Beverage of Choice: Beer, Whiskey Recreational Drug Use: No Smoking Status: Current Everyday Smoker Type Used: Cigarettes 2nd Hand Smoke Exposure: Yes Recent Foreign Travel: No Contact w/Someone Who Travel: No Recent Infectious Disease Expo: No Recent Hopitalizations: No Physical Abuse: No Sexual Abuse: No Mistreated: No Fear: No Immunizations Up To Date Tetanus Booster (TDap): Unknown Seasonal Allergies Seasonal Allergies: No Past Medical History Surgeries: No Respiratory: Yes Asthma Cardiac: No High Cholesterol, Hypertension Neurological: Yes (NEUROPATHY IN HANDS AND FEET) Neuropathy Reproductive Disorders: No Sexually Transmitted Disease: No HIV/AIDS: No Genitourinary: No Gastrointestinal: No Musculoskeletal: No Endocrine: Yes Diabetes, Insulin dep HEENT: No Cancer: No Psychosocial: No Integumentary: No Blood Disorders: No Adverse Reaction/Blood Tranf: No Family Medical History No Pertinent Family Hx Physical Exam Vital Signs - First Documented 01/15/19 20:18 Temp 37.2 Pulse 81 Resp 20 B/P (MAP) 139/83 (101) Pulse Ox 100 O2 Delivery Room Air Capillary Refill : Less Than 3 Seconds Height: 5'8.00" Weight: 153lbs. 1.0oz. [id number]; 22.00 BMI Method:Stated General Appearance: WD/WN, no apparent distress HEENT: PERRL/EOMI, normal ENT inspection, TMs normal, pharynx normal, other (clear postnasal drainage) Neck: non-tender, full range of motion, supple, normal inspection Respiratory: chest non-tender, lungs clear, normal breath sounds Cardiovascular: normal peripheral pulses, regular rate, rhythm Gastrointestinal: normal bowel sounds, non tender, soft Neurologic/Psychiatric: no motor/sensory deficits, alert, normal mood/affect, oriented x 3 Skin: normal color, warm/dry Progress/Results/Core Measures Suspected Sepsis Recent Fever Within 48 Hours: No Infection Criteria Present: None New/Unexplained Altered Menta: No Sepsis Screen: No Definite Risk SIRS Temperature: Pulse: 81 Respiratory Rate: 20 Blood Pressure 139 /83 Mean: 101 Results/Orders Vital Signs/I&O 01/15/19 01/15/19 20:18 21:03 Temp 37.2 37.2 Pulse 81 81 Resp 20 20 B/P (MAP) 139/83 (101) 139/83 (101) Pulse Ox 100 100 O2 Delivery Room Air Capillary Refill : Less Than 3 Seconds Blood Pressure Mean: 101 Departure Impression Primary Impression: Upper respiratory infection Qualified Codes: J06.9 - Acute upper respiratory infection, unspecified Disposition: HOME, SELF-CARE Condition: Improved Departure-Patient Inst. Decision time for Depature: 20:50 Referrals: [facility] (PCP/Family) Primary Care Physician Patient Instructions: Cough, Adult (DC), Viral Upper Respiratory Infection, Adult (DC) Add. Discharge Instructions: Take Mucinex one tablet twice daily with full glass of water. If your symptoms are not improving or worsen over the next 2-3 days she may begin taking the Z-Moisés per the prescription. Follow-up with your primary care provider if symptoms are not improving or worsen. You may alternate between Tylenol 650 mg and ibuprofen 600 mg for pain or fever. Return to the emergency department for fever greater than 101, difficulty breathing, or new complaints. All discharge instructions reviewed with patient and/or family. Voiced understanding. WES[address] L[address] Jan 15, 2019 20:57
[2019-01-15 21:03] VITALS: BP 139/83
== END 2019-01-15 21:03 | disposition home or self-care (01) ==
LOC: EDUNIT# 20:12 → ER 20:15
DX: J06.9 Acute upper respiratory infection, unspecified (principal); J45.909 Unspecified asthma, uncomplicated; I10 Essential (primary) hypertension; E78.00 Pure hypercholesterolemia, unspecified; F17.210 Nicotine dependence, cigarettes, uncomplicated; Z79.4 Long term (current) use of insulin; Z79.52 Long term (current) use of systemic steroids
CPT/HCPCS: 99282

== ENCOUNTER 2019-03-29 11:48 | Emergency (ER) | payer BC ==
[~2019-03-29] VITALS: Ht 172.7 cm; Wt 66.2 kg
--- NOTE | 2019-03-29 12:14 | ED Lower Extremity ---
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 Pt reports unloading glass from a machine for ten hours last night and then the hip pain began. Pt denies prior injury or surgery to R hip. Pt denies numbness/tingling. Pt reports IBU has done nothing for the pain. Nursing Sepsis Screen: No Definite Risk ([place]) Source: patient Exam Limitations: no limitations (ALISIA BINGHAM) History of Present Illness Date Seen by Provider: Mar 29, 2019 Initial Comments Patient seen and evaluated by [facility], re-assessed by this provider. Pain/Injury Location: right hip (DOMING[place] LEES) Time Seen by Provider: 12:32 Initial Comments This is a 48 y/o male who presents to the ED w/ R hip pain which onset last night following unloading glass from a machine for 8 hrs. The pain was described as a constant deep ache, w/ no radiation, which exacerbates w/ movement. States he too Ibuprofen last night w/ minimal relief but states he has "ran out of it now". Denies any trauma or fall that may have caused the pain. Denies any prior surgeries or injuries to R hip or lower back. Denies any other sx including neurologic sx, bowel or bladder incontinence. Onset: yesterday Method of Injury: other (heavy lifting) Modifying Factors: Improves With Immobilization; Worse With Movement; Improves With Pain Medication (ALISIA BINGHAM STUDEN) Allergies and Home Medications Allergies Coded Allergies: No Known Drug Allergies (Unverified , 02/04/13) Home Medications Albuterol Sulfate 1 Puff Puff, 2 PUFF IH Q4H PRN for SHORTNESS OF BREATH 1 PUFF = 90 MCG Prescribed by: RAQUEL LARSEN on 01/14/18 1503 Azithromycin 250 Mg Tablet, 500 MG PO DAILY Prescribed by: RAQUEL LARSEN on 01/14/18 1512 Benzonatate 100 Mg Capsule, 100 MG PO TID PRN for cough Prescribed by: RAQUEL LARSEN on 01/14/18 151 Cyclobenzaprine HCl 10 Mg Tablet, 10 MG PO TID PRN for MUSCLE SPASM OR BACK PAIN Prescribed by: RAQUEL LARSEN on 01/14/18 1503 Gabapentin 300 Mg Capsule, 300 MG PO HS, (Reported) Glipizide 10 Mg Tab.er.24, 10 MG PO DAILY, (Reported) Hydrocodone Bit/Acetaminophen 1 Tab Tab, 1-2 TAB PO Q6HR PRN for PAIN-MODERATE Prescribed by: RAQUEL LARSEN on 01/14/18 1503 Insulin Detemir 100 Unit/1 Ml Insuln.pen, 30 UNIT SQ DAILY PRN for BLOOD SUGAR, (Reported) Levofloxacin 750 Mg Tablet, 750 MG PO DAILY Prescribed by: RAQUEL LARSEN on 01/14/18 1512 Losartan Potassium 25 Mg Tablet, 12.5 MG PO DAILY, (Reported) TAKES 1/2 (25MG) TABLET Metformin HCl 500 Mg Tab.er.24h, 500 MG PO DAILY, (Reported) Pantoprazole Sodium 40 Mg Tablet.dr, 40 MG PO DAILY PRN for HEARTBURN, (Reported) Prednisone 20 Mg Tab, 40 MG PO DAILY@0700 Prescribed by: RAQUEL LARSEN on 01/14/18 1503 Promethazine HCl/Codeine 118 Ml Syrup, 5 ML PO Q6H PRN for cough Prescribed by: RAQUEL LARSEN on 01/14/18 1512 Sertraline HCl 50 Mg Tablet, 50 MG PO DAILY, (Reported) Simvastatin 20 Mg Tablet, 20 MG PO DAILY, (Reported) Patient Home Medication List Home Medication List Reviewed: Yes ([facility] [address]) Review of Systems Constitutional: no symptoms reported Cardiovascular: no symptoms reported Genitourinary: no symptoms reported Musculoskeletal: No back pain; other (R hip pain) Skin: No pruritus, No rash (ALISIA BINGHAM) Past Muqddjc-Sagwag-Msobsb Hx Past Med/Social Hx: Reviewed Nursing Past Med/Soc Hx ([facility]) Patient Social History Alcohol Use: Denies Use Number of Drinks Today: GG Alcohol Beverage of Choice: Beer, Whiskey Recreational Drug Use: No Smoking Status: Current Everyday Smoker Type Used: Cigarettes 2nd Hand Smoke Exposure: Yes Recent Foreign Travel: No Contact w/Someone Who Travel: No Recent Infectious Disease Expo: No Recent Hopitalizations: No ([facility] [address]) Immunizations Up To Date Tetanus Booster (TDap): Unknown ([address]) Seasonal Allergies Seasonal Allergies: No ([facility] [address]) Past Medical History Surgeries: No Respiratory: Yes Asthma Cardiac: No High Cholesterol, Hypertension Neurological: Yes (NEUROPATHY IN HANDS AND FEET) Neuropathy Reproductive Disorders: No Sexually Transmitted Disease: No HIV/AIDS: No Genitourinary: No Gastrointestinal: No Musculoskeletal: Yes (R knee) Arthritis Endocrine: Yes Diabetes, Insulin dep HEENT: No Cancer: No Psychosocial: No Integumentary: No Blood Disorders: No Adverse Reaction/Blood Tranf: No ([facility] [address]) Family Medical History No Pertinent Family Hx ([facility]) Physical Exam Vital Signs Vital Signs - First Documented 03/29/19 11:55 Temp 37.0 Pulse 82 Resp 14 B/P (MAP) 132/79 (96) Pulse Ox 100 O2 Delivery Room Air ([email or web address]) Vital Signs Capillary Refill : Less Than 3 Seconds ([address]) Height, Weight, BMI Height: 5'8.00" Weight: 153lbs. 1.0oz. [id number]; 22.00 BMI Method:Stated Tender over the right greater trochanter. LOM right hip secondary to pain. Resisted flex/ext V/V. ([address]) General Appearance: WD/WN, no apparent distress Cardiovascular: normal peripheral pulses, regular rate, rhythm, no edema, no gallop, no JVD, no murmur Respiratory: chest non-tender, lungs clear, normal breath sounds, no respirato ry distress, no accessory muscle use Back: normal inspection, no vertebral tenderness Hips: bilateral hip no evidence of injury; right hip limited range of motion (due to pain), right hip pain, right hip soft tissue tenderness Legs: bilateral leg non-tender, bilateral leg normal inspection, bilateral leg normal range of motion Reflexes: 2+ knee (R), 2+ knee (L) Neurologic/Tendon: normal sensation, normal motor functions, normal tendon functions, responds to pain, other (Mildly Antalgic gait) Neurologic/Psychiatric: alert, normal mood/affect, oriented x 3 Skin: normal color, warm/dry ([email or web address]) Progress/Results/Core Measures Results/Orders Vital Signs/I&O 03/29/19 11:55 Temp 37.0 Pulse 82 Resp 14 B/P (MAP) 132/79 (96) Pulse Ox 100 O2 Delivery Room Air (ALISIA BINGHAM [employer]) Blood Pressure Mean: 96 Progress Progress Note : Time: 12:32 Progress Note Seen and Evaluated. Ddx includes strain, sprain, trochanteric bursitis, and Fracture. Will order XR of R hip. Pt states his shift will start in a few hours and asks if he could have a work note. (ALISIA BINGHAM [employer] [facility]) Diagnostic Imaging Diagonstic Imaging: Xray Plain Films/CT/US/NM/MRI: pelvis, hip Comments NAME: KEN SWANSON [facility] REC#: [id number] PT STATUS: REG ER : 1970 PHYSICIAN: [address] ADMIT DATE: 03/29/19/ER Draft Date of Exam:03/29/19 PELVIS WITH RIGHT HIP 2-3VIEWS INDICATION: Right hip pain AP view pelvis and 2 views the right hip were obtained. Joint spaces are well-maintained in both hips. There is no fracture or dislocation. There is calcific arteriosclerosis. IMPRESSION: Negative pelvis and right hip. Dictated on workstation # [id number] Dict: 03/29/19 1244 Trans: 03/29/19 1246 CVB [id number] Interpreted by: JENNIFER WHITE MD Electronically signed by: Reviewed: Reviewed by Me ([facility] [address]) Departure Impression Primary Impression: Bursitis of right hip Qualified Codes: M70.61 - Trochanteric bursitis, right hip Disposition: 01 HOME, SELF-CARE Condition: Improved Departure-Patient Inst. Decision time for Depature: 13:10 (WESLY LNAE) Referrals: [facility] (PCP/Family) Primary Care Physician Patient Instructions: Hip Bursitis (DC) Add. Discharge Instructions: Ice to right hand 20 minutes every 2 hours while awake. Alternate between ibuprofen 600 mg and Tylenol 650 mg every 4 hours for pain. Advance activity as tolerated. Follow-up with your primary care provider if symptoms are not improving or worsen. Return to the emergency department for new, emergent health care problems. All discharge instructions reviewed with patient and/or family. Voiced understanding. Work/School Note: Work Release Form Date Seen in the Emergency Department: Mar 29, 2019 Return to Work: Mar 31, 2019 Restrictions: No Restrictions Patient evaluated by this provider and medical student, reviewed documentation and made additional remarks ([address]ANE) [address] Mar 29, 2019 12:14 ALISIA BINGHAM [facility] Mar 29, 2019 13:07
--- NOTE | 2019-03-29 12:46 | Diagnostic Imaging Report ---
INDICATION: Right hip pain AP view pelvis and 2 views the right hip were obtained. Joint spaces are well-maintained in both hips. There is no fracture or dislocation. There is calcific arteriosclerosis. IMPRESSION: Negative pelvis and right hip. Dictated by: Dictated on workstation # [id number]
[2019-03-29] MEDS ORDERED: IBUPROFEN 600 MG (MOTRIN) TAB PO ONE (13:00)
[2019-03-29 13:38] VITALS: BP 132/79
== END 2019-03-29 13:38 | disposition home or self-care (01) ==
LOC: EDUNIT# 11:48 → ER 11:50
DX: M70.61 Trochanteric bursitis, right hip (principal); J45.909 Unspecified asthma, uncomplicated; I10 Essential (primary) hypertension; E78.00 Pure hypercholesterolemia, unspecified; E11.40 Type 2 diabetes mellitus with diabetic neuropathy, unspecified; F17.210 Nicotine dependence, cigarettes, uncomplicated; Z79.4 Long term (current) use of insulin; Z79.52 Long term (current) use of systemic steroids; X50.0XXA Overexertion from strenuous movement or load, initial encounter

== ENCOUNTER 2019-09-16 14:57 | Emergency (ER) | payer SELFPAY ==
[~2019-09-16] VITALS: Ht 172 cm; Wt 65.0 kg
[~2019-09-16 14:57] MED LIST changes: +METF-865 PO; -METF500T8 PO; +SIMV20TA26 PO; -SIMV20TA3 PO
--- OUTSIDE RECORDS SUMMARY | 2019-09-16 15:02 | XMS REPORT ---
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 g/dL (L) 12.1 - 17.2 g/dL Via [facility] (d) [facility] () serum or plasma urea nitrogen/creatin ine mass ratio on 2018-01-14 Urea 17 mg/mg (no code) 6 - 22 mg/mg Via [facility] nitrogen/Creatin Hospital ine mass ratio [place] () serum or plasma urea nitrogen measurement (mass/volume) on 2018-01-14 Urea nitrogen 14 mg/dL (no code) 7 - 20 mg/dL Via [facility] () serum or plasma sodium measurement (moles/volume) on 2018-01-14 Sodium molar 136 mmol/L (no code) 135 - 145 mmol/L Via [facility] () serum or plasma potassium measurement (moles/volume) on 2018-01-14 Potassium molar 4.7 mmol/L (no code) 3.7 - 5.2 mmol/L Via [facility] () serum or plasma glucose measurement (mass/volume) on 2018-01-14 Glucose mass 307 mg/dL (H) 60 - 125 mg/dL Via [facility] () serum or plasma creatinine measurement with calculation of estimated glomerular filtration rate on 2018-01-14 GFR/1.73 sq M no information (no code) Via [facility] non-blacks [facility] vol rate/area () (S/P/Bld) serum or plasma creatinine measurement (mass/volume) on 2018-01-14 Creatinine mass 0.82 mg/dL (no code) Via [facility] () serum or plasma chloride measurement (moles/volume) on 2018-01-14 Chloride molar 112 mmol/L (H) 95 - 106 mmol/L [facility] (59578) serum or plasma calcium measurement (mass/volume) on 2018-01-14 Calcium mass 8.5 mg/dL (no code) 8.5 - 10.2 mg/dL Via [facility] () serum or plasma anion gap determination (moles/volume) on 2018-01-14 Anion gap 3 8 mmol/L (no code) 3 - 11 mmol/L Via [facility] [address] () magnesium on 2018-01-14 Magnesium mass 1.7 mg/dL (L) 1.7 - 2.2 mg/dL [facility] (86136) carbon dioxide on 2018-01-14 CO2 molar conc 16 mmol/L (L) 23 - 29 mmol/L Via [facility] () capillary blood glucose measurement by glucometer (mass/volume) on 2018-01-14 Glucose mass 461 mg/dL () 60 - 125 mg/dL Via [facility] (15220) blood neutrophils automated count (number/volume) on 2018-01-14 Neutrophils Auto 5.6 10*3/uL (no code) 1.7 - 7 10*3/uL Via [facility] #/vol (Bld) [facility] (42461) blood monocytes/100 leukocytes on 2018-01-14 Monocytes/100 4 % (no code) 2 - 8 % Via [facility] WBC Auto (Bld) [facility] (74518) blood monocytes automated count (number/volume) on 2018-01-14 Monocytes Auto 0.3 10*3/uL (no code) 0.3 - 0.9 Via [facility] #/vol (Bld) 10*3/uL [facility] (56005) blood lymphocytes automated count (number/volume) on 2018-01-14 Lymphocytes Auto 0.6 10*3/uL (L) 0.9 - 2.9 Via [facility] #/vol (Bld) 10*3/uL [facility] (43416) blood leukocytes automated count (number/volume) on 2018-01-14 WBC Auto #/vol 6.5 10*3/uL (no code) 3.5 - 10.5 Via [facility] (Bld) 10*3/uL [facility] (29918) blood hematocrit (volume fraction) on 2018-01-14 Hematocrit Auto 25 % (L) 36.1 - 50.3 % Via [facility] ([facility] (26013) blood erythrocytes automated count (number/volume) on 2018-01-14 RBC Auto #/vol 2.31 10*6/uL (L) 4.2 - 6.1 Via [facility] i (Bld) 10*6/uL [facility] (11787) automated erythrocyte mean corpuscular volume on 2018-01-14 MCV Auto Entitic 107 fL (H) 80 - 100 fL Via Chri sti volume (RBC) [facility] (09622) automated erythrocyte mean corpuscular hemoglobin concentration measurement (mass/volume) on 2018-01-14 MCHC Auto mass 35 g/dL (no code) 32 - 36 g/dL Via [facility] conc (RBC) [facility] (73653) automated erythrocyte mean corpuscular hemoglobin (mass per erythrocyte) on 2018-01-14 MCH Auto Entitic 37 pg (H) 27 - 31 pg Via [facility] mass (RBC) [facility] (75498) automated erythrocyte distribution width ratio on 2018-01-14 Erythrocyte 12.4 % (no code) 11.6 - 14.6 % Via [facility] distribution Hospital width Auto Ratio [place] (RBC) () automated eosinophil count on 2018-01-14 Eosinophils Auto 0.0 10*3/uL (no code) 0.05 - 0.5 Via [facility] #/vol (Bld) 10*3/uL [facility] (58773) automated blood platelet mean volume measurement on 2018-01-14 Platelet mean 9.9 fL (no code) 7.2 - 11.7 fL Via [facility] ti volume Auto Hospital Entitic volume [place] (Bld) (43704) automated blood platelet count (count/volume) on 2018-01-14 Platelets Auto 130 10*3/uL (no code) 150 - 450 Via [facility] #/vol (Bld) 10*3/uL [facility] (74361) automated blood neutrophils/100 leukocytes on 2018-01-14 Neutrophils/100 87 % (H) 40 - 60 % Via [facility] i WBC Auto (Bld) [facility] (36241) automated blood lymphocytes/100 leukocytes on 2018-01-14 Lymphocytes/100 9 % (L) 20 - 40 % Via [facility] i WBC Auto (Bld) [facility] (61365) automated blood eosinophils/100 leukocytes on 2018-01-14 Eosinophils/100 0 % (no code) 1 - 4 % Via [facility] i WBC Auto (Bld) [facility] (07523) automated blood basophils/100 leukocytes on 2018-01-14 Basophils/100 0 % (no code) 0.5 - 1 % Via [facility] WBC Auto (Bld) [facility] (92833) automated blood basophil count (count/volume) on 2018-01-14 Basophils Auto 0.0 10*3/uL (no code) 0 - 0.3 10*3/uL Via risti #/vol (Bld) [facility] () urine urobilinogen measurement by automated test strip (mass/volume) on 2018-01-13 Urobilinogen 4 (*) Via [facility] Test strip Qn [facility] ([facility] () urine total bilirubin detection by test strip on 2018-01-13 Bilirubin Ql (U) 1+ (*) Via [facility] () urine protein assay by test strip, semi-quantitativ e on 2018-01-13 Protein Test 3+ (*) Via [facility] strip ([facility] () urine ph measurement by test strip on 2018-01-13 pH Test strip 5 [pH] (no code) 4.6 - 8 [pH] Via [facility] i ([facility] () urine nitrite detection by test strip on 2018-01-13 Nitrite Test Negative (no code) Via [facility] strip () [facility] () urine ketones detection by automated test strip on 2018-01-13 Ketones 1+ (*) Via [facility] Automated test Hospital strip Ql () [place] () urine glucose detection by automated test strip on 2018-01-13 Glucose 3+ (*) Via [facility] Automated test Hospital strip Ql () [place] () urine color determination on 2018-01-13 Color Nom (U) YELLOW (no code) Via [facility] (94678) urine clarity determination on 2018-01-13 Clarity Nom (U) CLEAR (no code) Via [facility] (79317) squamous epithelial cells detection in urine sediment by light microscopy on 2018-01-13 Epithelial no information (no code) Via [facility] cells.squamous [facility] LM Ql (Urine [place] sed) () specific gravity of urine by test strip on 2018-01-13 Specific gravity 1.030 (*) Via [facility] Relative Density [facility] ([facility] () serum or plasma phosphate measurement (mass/volume) on 2018-01-13 Phosphate mass 1.9 mg/dL (L) 2.4 - 4.1 mg/dL Via [facility] () mucus detection in urine sediment by light microscopy on 2018-01-13 Mucus LM Ql MODERATE (*) Via [facility] (Urine sed) [facility] (56407) leukocyte esterase on 2018-01-13 Leukocyte 1+ (*) Via [facility] esterase Test Hospital strip Ql (U) [place] (73190) hyaline casts detection in urine sediment by light microscopy on 2018-01-13 Hyaline casts LM no information (*) Via [facility] (Urine sed) [facility] (15332) erythrocytes detection in urine sediment by light microscopy on 2018-01-13 RBC LM Ql (Urine Negative (no code) Via [facility]) [facility] () crystals detection in urine sediment by light microscopy on 2018-01-13 Crystals LM Ql NONE (no code) Via [facility] (Urine sed) [facility] (40601) complete urinalysis with reflex to culture on 2018-01-13 Urinalysis NO (no code) Via [facility] Reflex Culture [place] panel - Urine () casts detection in urine sediment by light microscopy on 2018-01-13 Casts LM Ql PRESENT (no code) Via [facility] (Urine sed) [facility] (70351) blood lactic acid measurement (moles/volume) on 2018-01-13 Lactate molar 0.89 mmol/L (no code) 0.5 - 2.2 mmol/L Via [facility] () bacterial urine culture on 2018-01-13 Bacteria NO GROWTH (no code) Via [facility] Nom (U) [place] () bacteria detection in urine sediment by light microscopy on 2018-01-13 Bacteria LM Ql MODERATE (*) Via [facility] (Urine sed) [facility] (02778) automated urine sediment leukocyte count by microscopy (number/high power field) on 2018-01-13 WBC LM.HPF no information (*) Via [facility] #/area (Urine Hospital sed) [place] () automated urine sediment erythrocyte count by microscopy (number/high power field) on 2018-01-13 RBC LM.HPF NONE (no code) Via [facility] #/area (Urine Hospital sed) [place] (08443) serum or plasma total bilirubin measurement (mass/volume) on 2018-01-12 Bilirubin mass 0.9 mg/dL (no code) 0.1 - 1.2 mg/dL Via [facility] (76723) serum or plasma protein measurement (mass/volume) on 2018-01-12 Protein mass 7.3 g/dL (no code) 6.4 - 8.3 g/dL Via [facility] (49391) serum or plasma lactate measurement (moles/volume) on 2018-01-12 Lactate molar 2.35 mmol/L () 0.5 - 2.2 mmol/L Via [facility] (33128) serum or plasma aspartate aminotransferase measurement (enzymatic activity/volume) on 2018-01-12 AST enzyme 31 U/L (no code) 10 - 34 U/L Via [facility] (01370) serum or plasma alkaline phosphatase measurement (enzymatic activity/volume) on 2018-01-12 ALP enzyme 60 U/L (no code) 44 - 147 U/L Via [facility] (48045) serum or plasma albumin measurement (mass/volume) on 2018-01-12 Albumin mass 3.6 g/dL (no code) 3.4 - 5.4 g/dL Via [facility] (67996) serum or plasma alanine aminotransferase measurement (enzymatic activity/volume) on 2018-01-12 ALT enzyme 28 U/L (no code) 4 - 40 U/L Via [facility] (67690) prothrombin time (pt) in platelet poor plasma by coagulation assay on 2018-01-12 Prothrombin time 16.7 s (H) 9.4 - 12.5 s Via [facility] is (PT) Coag time [facility] ([facility]) [place] (86119) methicillin resistant staphylococcus aureus (mrsa) screening culture on 2018-01-12 MRSA DNA MRSA not (no code) Via [facility] JIGNA+probe Ql isolated [facility] (Unsp spec) [place] (29668) manual eosinophils/100 leukocytes in nose on 2018-01-12 Eosinophils/100 0 (no code) Via [facility] WBC Manual [facility] (Nose) [place] (66208) manual blood segmented neutrophils/100 leukocytes on 2018-01-12 Segmented 74 % (no code) 35 - 80 % Via [facility] neutrophils/100 Hospital WBC Manual [facility] (Bld) (19489) manual blood metamyelocytes/1 00 leukocytes on 2018-01-12 Metamyelocytes/1 2 % (no code) 0 - 0 % Via [facility] 00 WBC Manual Hospital cnt (d) [place] (44691) manual blood lymphocytes/100 leukocytes on 2018-01-12 Lymphocytes/100 3 % (no code) 20 - 40 % Via [facility] i WBC Auto (Bld) [facility] (74388) manual blood basophils/100 leukocytes on 2018-01-12 Basophils/100 0 % (no code) 0.5 - 1 % Via [facility] WBC Auto (Bld) [facility] (95374) inr in platelet poor plasma or blood by coagulation assay on 2018-01-12 INR Coag RelTime 1.4 (no code) Via [facility] (Platelet poor Hospital plasma or blood) [place] (45878) calcium measurement corrected for albumin on 2018-01-12 Calcium mass 9.5 mg/dL (no code) 8.5 - 10.2 mg/dL Via [facility] isti conc [facility] (90315) blood monocytes/100 leukocytes on 2018-01-12 Monocytes/100 1 % (no code) 2 - 8 % Via [facility] WBC Auto (Bld) [facility] (17080) blood macrocytes detection by light microscopy on 2018-01-12 Macrocytes Auto MODERATE (no code) Via [facility] Ql (d) [facility] (97983) blood dohle body detection by light microscopy on 2018-01-12 Dohle body LM Ql SLIGHT (no code) Via [facility] (Bld) [facility] (10634) blood band neutrophils/100 leukocytes on 2018-01-12 Band form 20 % (no code) 0 - 3 % Via [facility] neutrophils/100 Hospital WBC Manual cnt [place] ([facility]) (11218) bacterial blood culture on 2018-01-12 Bacteria No growth (no code) Via [facility] identified Cx Hospital Nom (Bld) [place] (34580) activated partial thromboplastin time (aptt) in platelet poor plasma bycoagulation assay on 2018-01-12 aPTT Coag time 41 s (H) 25 - 35 s Via [facility] (Bld) [facility] (79719) other on 2017-10-14 Control Negative (no code) no information Exp date 06/11/2018 (no code) no information Lot # [id number] (no code) no information other on 2017-08-24 A:C (IN HOUSE) yellow~clear~80 (no code) [facility] mg/L~50 [facility] mg/dL~>300 mg/g [facility] (26122) Exp date 05/2019 (no code) no information Lot 5.7~6.8~[id number] (no code) no information MICROALBUMIN High Abnormal (no code) [facility] (40302) Urate mass conc 2.1 mg/dL (L) 3.5 - 7.2 mg/dL [facility] (80291) other on 2017-05-21 Exp date 03/09 (no code) [facility] (58723) Lot 6.8~7.2~0797 (no code) [facility] (79389) Vital Signs Vital Sign Value Interpretation Reference Date Time Care [facility] (Normalized) (Normalized) Range BMI (Body Mass 23.67 kg/m2 (no code) 15 - 25 kg/m2 01-21-2018 [facility] Community Index) 14:20-[address] [place] [address] (75836) BMI (Body Mass 22.09 kg/m2 (no code) 15 - 25 kg/m2 10-14-2017 [facility] Community Index) 10:40-[address] [place] [address] (44378) BMI (Body Mass 21.47 kg/m2 (no code) 15 - 25 kg/m2 10-12-2017 [facility] Community Index) 15:25-[address] [place] [address] ([id number]) BMI (Body Mass 21.59 kg/m2 (no code) 15 - 25 kg/m2 09-07-2017 [facility] Community Index) 19:00-[address] [place] [address] (36452) BMI (Body Mass 22.32 kg/m2 (no code) 15 - 25 kg/m2 08-24-2017 [facility] Community Index) 15:40-[address] [place] [address] (13005) Body 98 [degF] (no code) 97.8 - 99.0 01-21-2018 ALFREDITO HADLEY Community Temperature [degF] 14:20-0400 70288 [facility] (18830) Body 98.7 [degF] (no code) 97.8 - 99.0 10-14-2017 [facility] Temperature [degF] 10:40-0400 46904 [facility] (04279) Body 97.6 [degF] (no code) 97.8 - 99.0 10-12-2017 [facility] Temperature [degF] 15:25-0400 28109 [facility] (52870) Body 98.1 [degF] (no code) 97.8 - 99.0 09-07-2017 [facility] Temperature [degF] 19:00-[address] [facility] (01926) Body 98.4 [degF] (no code) 97.8 - 99.0 08-24-2017 [facility] Temperature [degF] 15:40-[address] [facility] (43251) Body 97.6 [degF] (no code) 97.8 - 99.0 05-04-2014 Doctor [facility] Temperature [degF] 10:16-0500 [facility] (15695) Body 97.9 [degF] (no code) 97.8 - 99.0 02-05-2014 Doctor Community Temperature [degF] 12:44-0400 [facility] (30299) Body 97.1 [degF] (no code) 97.8 - 99.0 12-05-2013 Doctor Community Temperature [degF] 15:33-0400 [facility] (23449) Body weight 73.03 kg (no code) kg 05-04-2014 Doctor Com munity 10:16-0500 [facility] (07972) Body weight 72.98 kg (no code) kg 02-05-2014 Doctor Com munity 12:44-0400 [facility] (46450) Body weight 70.77 kg (no code) kg 12-05-2013 Doctor Com [facility]unity 15:33-0400 [facility] (15521) Height 172.72 cm (no code) cm 01-21-2018 ALFREDITO MCINTYRE [facility] 14:20-[address] [place] [address] ([id number]) Height 172.72 cm (no code) cm 11-16-2017 [facility] 15:00-0400 [facility] (93539) Height 172.72 cm (no code) cm 11-10-2017 [facility] 09:30-0400 [facility] (44626) Height 172.72 cm (no code) cm 10-14-2017 [facility] 10:40-[address] [place] [address] (43099) Height 172.72 cm (no code) cm 10-12-2017 [facility] 15:25-[address] [place] [address] (08978) Height 172.72 cm (no code) cm 09-07-2017 [facility] 19:00-[address] [place] [address] (26729) Height 172.72 cm (no code) cm 08-24-2017 [facility] 15:40-[address] [place] [address] (03500) Height 172.72 cm (no code) cm 05-04-2014 Doctor Commu nity 10:16-0500 [facility] (96038) Height 172.72 cm (no code) cm 02-05-2014 Doctor Commu nity 12:44-0400 [facility] (89544) Height 172.72 cm (no code) cm 12-05-2013 Doctor Commu nity 15:33-0400 [facility] ([id number]) Weight 70.63 kg (no code) kg 01-21-2018 ALFREDITO Nunez [facility] 14:200400 [address] [place] [address] (42238) Weight 65.91 kg (no code) kg 10-14-2017 WOOD KLINEY Mayra [facility] 10:40-[address] [place] [address] ([id number]) Weight 64.05 kg (no code) kg 10-12-2017 [facility] 15:25-0400 41082 [facility] (58379) Weight 64.41 kg (no code) kg 09-07-2017 WO[facility] 19:00-0400 34166 [facility] (70102) Weight 66.59 kg (no code) kg 08-24-2017 WOOD Nune[facility] 15:40-0400 48299 [facility] (56762) Interventions No Information Plan of Treatment Normalized Care Care Detail Care Activity Date Care Provider F acility Activity (CHM) Chronic Health [facility] 03-21-2018 RAD CASTRO [id number] [phone] [facility] ([id number]) Patient Education no information no information [facility] [place] Via [id number] [place] [address] ([id number]) Patient referral no information no information [facility] [place] Via [address] [place] [address] ([id number]) Goals Patient Goal Desired Goal no information no information Social History Normalized Code Original Code Date Value Tobacco smoking status Tobacco smoking status 01-15-2019 - Smokes tobacco daily NHIS NHIS (finding) no information no information 09-23-2014 Denies Use no information no information 09-23-2014 No no information no information 01-15-2019 Denies no information no information 01-15-2019 Current Everyda y Smoker no information no information 01-15-2019 Cigarettes Sex Assigned At Sex Assigned At 1970 - Male Functional Status The data below is from unstructured sources Query Response Date Teo rded Comprehension Ability Understands Co ncepts January 13, 2018 9:00pm Mental Status The data below is from unstructured sourcesNo Mental Status Information AvailableNo Mental Status Information AvailableNo Mental Status Information Available Encounters Encounter Normalized Encounter Encounter Diagnosis Care Provi jennifer Organization Date Type 03-29-2019 Emergency department no information (no phone) [facility] [place] patient visit Hospital (no phone) 03-29-2019 Emergency department no information no name no organization name - patient visit 03-29-2019 01-15-2019 Emergency department no information (no phone) [facility] - patient visit Hospital (no phone) 01-16-2019 01-15-2019 Emergency department no information no name no organization name - patient visit 01-15-2019 01-15-2019 Emergency department no information no name no organization name - patient visit 01-15-2019 01-12-2018 Emergency department no information no name no organization name patient visit 06-11-2017 Emergency department no information no name no organization name - patient visit 06-11-2017 05-18-2017 Emergency department no information no name no organization name - patient visit 05-18-2017 01-05-2017 Emergency department no information no name no organization name - patient visit 01-05-2017 01-04-2017 Emergency department no information no name no organization name - patient visit 01-04-2017 07-21-2016 Emergency department no information no name no organization name - patient visit 07-21-2016 07-21-2016 Emergency department no information no name no organization name - patient visit 07-21-2016 09-23-2014 Emergency department no information no name no organization name - patient visit 09-23-2014 09-07-2014 Emergency department no information no name no organization name - patient visit 09-07-2014 01-12-2018 Evaluation and Septic shock RAQUELRowdy LARSEN no organization name - management of Work Phone: 01-14-2018 inpatient 01-12-2018 Evaluation and no information no name no organ ization name - management of 01-14-2018 inpatient 11-10-2017 Limit oral eval problm no information no name no organization name focus 01-12-2018 Patient encounter no information no name no or ganization name - 01-14-2018 11-16-2017 Patient encounter no information no name no or ganization name 11-10-2017 Patient encounter no information no name no or ganization name 11-09-2017 Patient encounter no information no name no or ganization name 10-14-2017 Patient encounter no information no name no or ganization name 10-12-2017 Patient encounter no information no name no or ganization name 09-07-2017 Patient encounter no information no name no or ganization name 08-24-2017 Patient encounter no information no name no or ganization name 07-20-2017 Patient encounter no information no name no or ganization name NEGATED Patient encounter no information no name no or ganization name 06-12-2017 05-21-2017 Patient encounter no information no name no or ganization name 05-18-2017 Patient encounter no information no name no or ganization name 05-18-2017 Patient encounter no information no name no or ganization name Patient encounter no information no name no organizat ion name 09-05-2019 Patient encounter no information (no phone) [facility] procedure [facility] (no phone) 09-01-2019 Patient encounter no information ALFREDITO MCINTYRE (n o [facility] procedure phone) (no phone) [facility] (no phone) 05-17-2019 Patient encounter no information no name no or ganization name procedure 03-31-2019 Patient encounter no information no name no or ganization name procedure 02-10-2019 Patient encounter no information no name no or ganization name procedure 01-15-2019 Patient encounter no information no name no or ganization name procedure 10-21-2018 Patient encounter no information no name no or ganization name procedure 06-27-2018 Patient encounter no information no name no or ganization name procedure 05-27-2017 Patient encounter no information no name no or ganization name procedure no information Encounter for dental no name no organi zation name examination and cleaning without abnormal findings Medical Equipment Equipment Code (if Equipment Original Equipment Identifier P rocedure Code (if Dates provided) Text (if provided) (if provided) provided) no information 1 no information (no no information n o information named assigning authority) Payers Normalized Payer Value [facility] no information ([id number]) Evaluation note Note Type Note Facility Evaluation No Assessments Information Available [facility] note [facility] ([id number]) Summary Purpose eClinicalWorks SubmissioneClinicalWorks SubmissioneClinicalWorks SubmissioneClinicalWorks SubmissioneClinicalWorks SubmissioneClinicalWorks SubmissioneClinicalWorks Submission Advance Directives Directive Response Recor ded Date/Time Advance Directives No 8:29pm Resuscitation Status Full Code 04/06/16 8:29pm Directive Response Recor ded Date/Time Advance Directives No 8:34pm Resuscitation Status Full Code 09/23/14 8:34pm Directive Response Recor ded Date/Time Advance Directives No 7:58pm Resuscitation Status Full Code 09/07/14 7:58pm Directive Response Recor ded Date Advance Directives N 10:52pm Directive Response Recor ded Date/Time Advance Directives No 2:23pm Resuscitation Status Full Code 05/18/17 2:23pm Directive Response Recor ded Date/Time Advance Directives No 12:22am Resuscitation Status Full Code 06/12/17 12:22am Directive Response Recor ded Date/Time Advance Directives No 7:18pm Organ Donor Yes 01/12/18 7:18pm Resuscitation Status Full Code 01/12/18 7:18pm Advance Directive Response Recorded Date/Time Advance Directives No Oc er 2018 8:18pm Organ Donor Yes January 15, 2019 8:18pm Resuscitation Status Full Code January 15, 2019 8:18pm Advance Directive Response Recorded Date/Time Advance Directives No De cember 2018 11:55am Organ Donor Yes March 29, 2019 11:55am Resuscitation Status Full Code March 29, 2019 11:55am Discharge Instructions No hospital discharge instructions.No hospital discharge instructions.No hospital discharge instructions.No hospital discharge instruction information available.No hospital discharge instruction information available.No hospital discharge instruction information available. Chief Complaint and Reason for Visit Chief Complaint PNA, SEPTIC SHOCK Reason for Visit Septic shock Pneumonia Severe sepsis Type 2 diabetes mellitus Medical non-compliance Tobacco abuse Anxiety and depression DVT prophylaxis Anemia Acute renal insufficiency Lactic acidosis Hypophosphatemia Left lower lobe pneumonia Chief Complaint Cough/Cold/Flu Sympt oms Reason for Visit [id number] Chief Complaint Lower Extremity Reason for Visit [id number] Assessments No Assessments Information Available Additional Source Comments This clinical document has been generated using [employer] software that has been certified by the Office of the National Coordinator for Health Information Technology (ONC 15.99.04.3023.Diam.[id number]) and the National Committee for Signal Maintainer (NCQA, as an eMeasure certified technology). FOR RECORDS PERTAINING TO PATIENTS WHO ARE OR HAVE BEEN ENROLLED IN A CHEMICAL D EPENDENCY/SUBSTANCE ABUSE PROGRAM, SOME INFORMATION MAY BE OMITTED. This clinica l summary was aggregated from multiple sources. Caution should be exercised in using it in the provision of clinical care. This summary normalizes information from multiple sources, and as a consequence, information in this document may ma terially change the coding, format and clinical context of patient data. In ines tion, data may be omitted in some cases. CLINICAL DECISIONS SHOULD BE BASED ON T HE PRIMARY CLINICAL RECORDS. [facility] [employer] provides no warranty or guara ntee of the accuracy or completeness of information in this document.The followi ng information is based on time limited clinical information UNRECOGNIZED CONTENT PROVIDED BELOW FOR UNRECOGNIZED SECTION MEDICAL (GENERAL) HISTORY Type Description Date Medical History DM Medical History Depression Medical History Diabetic Neuropathy Medical History Allergies Hospitalization History General acute hospital- dx'd w/ DM 2008 Hospital[facility] History [facility] 09/07/14 Type Description Date Medical History DM Medical History Depression Medical History Diabetic Neuropathy Medical History Allergies Medical History Porokeratosis Medical History Plantar wart Medical History 05/2017- Negative exe rcise stress test Dr Perdomo Hospitalization History General acute hospital- dx'd w/ DM 2008 Hospitalization History [facility] 09/07/14 Hospitalization History HTN, [facility], 2017 Type Description Date Medical History DM Medical History Depression Medical History Diabetic Neuropathy Medical History Allergies Medical History Porokeratosis Medical History Plantar wart Medical History 05/2017- Negative exe rcise stress test Dr Perdomo Medical History pneumonia/sepsis Surgical History No Surgical history information Hospitalization History General acute hospital- dx'd w/ DM 2008 Hospitalization History [facility] 09/07/14 Hospitalization History HTN, [facility], 2017 Hospitalization History pneumonia/sepsis Type Description Date Medical History DM Medical History Depression Medical History Diabetic Neuropathy Medical History Allergies Medical History Porokeratosis Medical History Plantar wart Medical History 05/2017- Negative exe rcise stress test Dr Perdomo Medical History pneumonia/sepsis Surgical History No know Surgical history Hospitalization History General acute hospital- dx'd w/ DM 2008 Hospitalization History [facility] 09/07/14 Hospitalization History HTN, [facility], 2017 Hospitalization History pneumonia/sepsis 01/11-08/2017 UNRECOGNIZED CONTENT PROVIDED BELOW FOR UNRECOGNIZED SECTION REASON FOR VISIT Medication refill requestpt here for N/V. has appt with wood martinez on thursda y...wants to keep that appt, but needs a note for work today. reports N/V starte d this am. encouraged pt to keep appt with Jojo, stay hydrated with wate or ga torade, advance diet as tolerated to BRAT diet. pt verbalized understanding. kbu llardrnAbdominal pain, epigastric. KLaird, RNFacial swellingDental Pain and Swel lingswelling/tooth painTEHospital f/u, was in ICU for pneumonia and septic shock . Still has some chest congestion. Ran out of cough syrup. CBrumbackRNWork relea seMedication refill requestMedication refill requestEMR-David
--- OUTSIDE RECORDS SUMMARY | 2019-09-16 15:03 | XMS REPORT ---
Author Author Tony Roblero Doctor Organization [facility] Address Unknown Phone Unavailable Care Team Providers Care Police Judge Name Role Phone Migration, Doctor Unavailable Unavailable PROBLEMS Type Condition ICD9-CM Code BUI06-MN Code Onset Dates Condition S tatus SNOMED Code Problem Type 2 diabetes mellitus with diabetic neuropathy E11.40 Active 0499865965040 Problem Abnormal CBC R79.89 Active 1948746 06 Problem Mixed hyperlipidemia E78.2 Active 047428512 Problem Osteoarthritis, unspecified osteoarthritis type, unspecified site M19.90 Active 236966871 Problem Essential hypertension I10 Active 67119003 Problem Acute idiopathic gout involving toe of right foot M10.071 Active 14552991 Problem Impotence N52.9 Active 819437763 Problem Type 2 diabetes mellitus wit h diabetic neuropathy, without long-term current use of insulin E11.40 Active 79301 006 Problem Non compliance with medical treatment Z91.19 Active 9817750 Problem Neuropathy G62.9 Active 575458211 Problem Anxiety F41.9 Active 61001363 Problem Acute nonseasonal allergic rhinitis due to pollen J30.1 Active 74769493 Problem Major depressive disorder, single episode, unspecified F32.9 Active 50335670 ALLERGIES No Information ENCOUNTERS Encounter Location Date Diagnosis [place] [id number] [facility] [id number] [address] [place] [phone] 07 Jul, 2019 [facility] [address] [facility] [id number] [address] [place] [phone] Jul, [facility] [address] [facility] [id number] [address] [place] [phone] Jun, Type 2 diabetes mellitus wit h diabetic neuropathy, without long- term current use of insulin E11.40 [facility] [address] [facility] [id number] [address] [place] [phone] 30 Jun, 2019 [facility] [address] [facility] [id number] [address] [place] [phone] Jun, [facility] [address] [facility] [id number] [address] [place] [phone] May, [facility] [address] [facility] [id number] [address] [place] [phone] May, Type 2 diabetes mellitus wit h diabetic neuropathy E11.40 [facility] [address] [facility] [id number] [address] [place] [phone] May, Bronchitis J40 [address] [id number] [address] May, [facility] [address] [facility] [id number] [address] [place] [phone] May, Increased urinary frequency R35.0 and Type 2 diabetes mellitus with diabetic neuropathy E11.40 [facility] [address] [facility] [id number] [address] [place] [phone] Apr, [facility] [address] [facility] [id number] [address] [place] [phone] Mar, Trochanteric bursitis of rig ht hip M70.61 and Type 2 diabetes mellitus with diabetic neuropathy E11.40 [facility] [address] [facility] [id number] [address] [place] [phone] Feb, Right knee pain, unspecified chronicity M25.561 [facility] [address] [facility] [id number] [address] [place] [phone] Jan, Bronchitis J40 [facility] [address] [facility] [id number] [address] [place] [phone] Oct, Type 2 diabetes mellitus wit h diabetic neuropathy E11.40 ; Essential hypertension I10 and Major depressive disorder, single episode, unspecified F32.9 [facility] [address] [facility] [id number] [address] [place] [phone] Sep, Type 2 diabetes mellitus wit h diabetic neuropathy E11.40 [facility] [address] [facility] [id number] [address] [place] [phone] August, Essential hypertension I10 [facility] [address] [facility] [id number] [address] [place] [phone] Jul, Major depressive disorder, s kobe episode, unspecified F32.9 [facility] [address] [id number] [address] [place] [phone] Jun, Bronchitis J40 [facility] [address] [facility] [id number] [address] [place] [phone] May, Mixed hyperlipidemia E78.2 [facility] [address] [facility] [id number] [address] [place] [phone] Feb, Major depressive disorder, s kobe episode, unspecified F32.9 [facility] [address] [facility] [id number] [address] [place] [phone] Feb, Major depressive disorder, s kobe episode, unspecified F32.9 [facility] [address] [facility] [id number] [address] [place] [phone] Jan, History of pneumonia Z87.01 and Type 2 diabetes mellitus with hyperglycemia E11.65 [facility] [address] [facility] [id number] [address] [place] [phone] Jan, [facility] [address] [facility] [id number] [address] [place] [phone] Jan, Congestion of respiratory tr act J98.8 [facility] [address] [id number] [address] [place] [address] [id number] Nov, Dental caries K02.9 [facility] [address] [id number] [address] [place] [address] [id number] Nov, Dental examination Z01.20 [facility] [address] [id number] [address] [place] [address] [id number] Oct, Acute oral pain K13.79 [facility] [address] [facility] [id number] [address] [place] [phone] Oct, [facility] [address] [place] [id number] [place] [phone] Oct, [facility] [address] [address] Oct, Epigastric abdominal pain R1 0.13 ; Type 2 diabetes mellitus with diabetic neuropathy E11.40 ; Mixed hyperlipidemia E78.2 ; Essential hypertension I10 ; Major depressive disorder, single episode, unspecified F32.9 ; Neuropathy G62.9 and Non compliance w medication regimen Z91.14 [facility] [address] [address] Oct, [facility] [address] [address] August, [place] [address] [address] August, Type 2 diabetes mellitus wit h diabetic neuropathy E11.40 ; Mixed hyperlipidemia E78.2 ; Essential hypertension I10 ; Acute idiopathic gout involving toe of right foot M10.071 ; Neuropathy G62.9 and Major depressive disorder, single episode, unspecified F32.9 [place] [address] [address] August, [place] [address] [address] Jul, Essential hypertension I10 ; Neuropathy G62.9 and Musculoskeletal pain M79.1 [place] [address] [address] 14 May, 2017 [place] [address] [address] 09 May, 2017 Type 2 diabetes mellitus wit h diabetic neuropathy E11.40 ; [employer] (current) use of insulin Z79.4 ; Essential hypertension I10 ; Mixed hyperlipidemia E78.2 ; Non compliance w medication regimen Z91.14 ; Non compliance with medical treatment Z91.19 ; Injury of right thumb, initial encounter S69.91XA and Major depressive disorder, single episode, unspecified F32.9 [facility] [address] [facility] [id number] [address] [place] [phone] 08 May, 2017 [facility] [address] [address] May, [facility] [address] [place] [id number] [address] [place] [phone] May, Chest pain, unspecified type R07.9 and Type 2 diabetes mellitus with diabetic neuropathy E11.40 [facility] [address] [address] May, [place] [address] [address] Feb, Abnormal CBC R79.89 [place] [address] [address] Feb, [place] [address] [address] Jan, Type 2 diabetes mellitus wit h diabetic neuropathy E11.40 ; Mixed hyperlipidemia E78.2 ; Neuropathy G62.9 ; Osteoarthritis, unspecified osteoarthritis type, unspecified site M19.90 ; Acute nonseasonal allergic rhinitis due to pollen J30.1 ; Impotence N52.9 ; Anxiety F41.9 ; Essential hypertension I10 and Non compliance w medication regimen Z91.14 [facility] [address] [place] [id number] [address] [place] [phone] Oct, [facility] [address] [place] [id number] [address] [place] [phone] Sep, Type 2 diabetes mellitus wit h diabetic neuropathy E11.40 ; Non compliance w medication regimen Z91.14 ; Non compliance with medical treatment Z91.19 and Foot pain, left M79.672 [facility] [address] [place] [id number] [address] [place] [phone] Jul, [facility] [address] [id number] Jul, [facility] [address] [facility] [id number] [address] [place] [phone] May, Anxiety F41.9 ; Type 2 diabe kang mellitus with diabetic neuropathy E11.40 ; Non compliance w medication regimen Z91.14 ; Mixed hyperlipidemia E78.2 and Essential hypertension I10 [facility] [address] [facility] [id number] [address] [place] [phone] Apr, Osteoarthritis, unspecified osteoarthritis type, unspecified site M19.90 [facility] [address] [facility] [id number] [address] [place] [phone] Apr, [place] [address] [place] [id number] [address] [place] [phone] Apr, Type 2 diabetes mellitus wit h diabetic neuropathy E11.40 ; Non compliance w medication regimen Z91.14 ; Mixed hyperlipidemia E78.2 ; Essential hypertension I10 ; Plantar wart B07.0 and Anxiety F41.9 [facility] [address] [facility] [id number] [address] [place] [phone] Apr, [facility] [address] [facility] [id number] [address] [place] [phone] Apr, [facility] [address] [facility] [id number] [address] [place] [phone] Mar, Osteoarthritis, unspecified osteoarthritis type, unspecified site M19.90 and Impotence N52.9 [facility] [address] [facility] [id number] [address] [place] [phone] Mar, [facility] [address] [facility] [id number] [address] [place] [address] Mar, Type 2 diabetes mellitus wit h diabetic neuropathy E11.40 ; Anxiety F41.9 and Intractable vomiting with nausea, unspecified vomiting type R11.2 [facility] [address] [facility] [id number] [address] [place] [phone] Mar, Type 2 diabetes mellitus wit h diabetic neuropathy E11.40 and Intractable vomiting with nausea, unspecified vomiting type R11.2 [place] [address] [address] Feb, Porokeratosis Q82.8 and Type 2 diabetes mellitus with diabetic neuropathy E11.40 [place] [address] [address] Jan, [place] [address] [address] Dec, [place] [address] [address] Dec, Type 2 diabetes mellitus wit h diabetic neuropathy E11.40 ; Non compliance w medication regimen Z91.14 ; Impotence N52.9 ; Essential hypertension I10 ; Hyperlipidemia E78.5 ; Neuropathy G62.9 ; 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 and Plantar wart B07.0 [place] [address] [address] Dec, [place] [address] [address] Nov, Dental examination Z01.20 [place] [address] [address] Oct, Osteoarthritis, unspecified osteoarthritis type, unspecified site M19.90 ; Type 2 diabetes mellitus with diabetic neuropathy E11.40 ; Impotence N52.9 ; Mixed hyperlipidemia E78.2 ; Hyperlipidemia E78.5 ; Essential hypertension I10 and Plantar wart B07.0 [place] [address] [place] [id number] [address] [place] [phone] Sep, [place] [address] [address] August, Abnormal thyroid blood test R94.6 [place] [address] [address] August, Dental examination Z01.20 [place] [address] [place] [id number] [address] [place] [phone] August, Type 2 diabetes mellitus wit h diabetic neuropathy E11.40 ; Non compliance w medication regimen Z91.14 ; Impotence N52.9 ; Mixed hyperlipidemia E78.2 ; Abscessed tooth K04.7 and Shoulder pain, left M25.512 [place] [address] [place] [id number] [address] [place] [address] May, Type 2 diabetes mellitus wit h diabetic neuropathy E11.40 ; Non compliance w medication regimen Z91.14 ; Non compliance with medical treatment Z91.19 ; Shoulder pain, left M25.512 ; General medical exam Z00.00 ; Impotence N52.9 and Hyperlipidemia E78.5 [place] [address] [place] [id number] [address] [place] [phone] Jan, Type 2 diabetes mellitus wit h diabetic neuropathy E11.40 ; Noncompliance w/medication treatment due to intermit use of medication Z91.14 and Impotence N52.9 [place] [id number] [place] [phone] Jan, [place] [address] [place] [id number] [address] [place] [phone] Dec, [place] [address] [place] [id number] [address] [place] [phone] Nov, [place] [address] [place] [id number] [address] [place] [phone] Nov, [place] [address] [place] [id number] [address] [place] [phone] Nov, [place] [address] [place] [id number] [address] [place] [phone] Nov, Diabetes with neurological m anifestations, type II or unspecified type, not stated as uncontrolled 250.60 ; Hyperlipidemia 272.4 ; Allergic rhinitis, cause unspecified 477.9 and Depression 311 [place] [address] [place] [id number] [address] [place] [phone] Sep, [facility] [address] [id number] [address] [place] [address], [place] [address] Sep, [facility] [address] [id number] [address] [place] [address], [place] [address] Sep, [facility] [address] [id number] [address] [place] [address], [place] [address] Sep, Depression 311 and Diabetes type 2, uncontrolled 250.02 [facility] [address] [id number] [address] [place] [address], [place] [address] August, [facility] [address] [id number] [address] [place] [address], [place] [address] Jul, [facility] [address] [id number] [address] [place] [address], [place] [address] Jul, [facility] [address] [id number] [address] [place] [address], [place] [address] Apr, [facility] [address] [id number] [address] [place] [address], [place] [address] Apr, [facility] [address] [id number] [address] [place] [address], [place] [address] Apr, [facility] [address] [id number] [address] [place] [address], [place] [address] Apr, [facility] [address] [id number] [address] [place] [address], [place] [address] Jan, [facility] [address] [id number] [address] [place] [address], [place] [address] Jan, [facility] [address] [id number] [address] [place] [address], [place] [address] Nov, [facility] [address] [id number] [address] [place] [address], [place] [address] Nov, [facility] [address] [id number] [address] [place] [address], [place] [address] Nov, [facility] [address] [id number] [facility] [place] [address] Nov, [facility] [address] [id number] [address] [place] [address], [place] [address] Nov, [facility] [address] [id number] [facility] [place] [address] Nov, [facility] [address] [id number] [address] [place] [address], [place] [address] Nov, [facility] [address] [id number] [address] [place] [address], [place] [address] Nov, [facility] [address] [id number] [address] [place] [address], [place] [address] August, [facility] [address] [id number] [address] [place] [address], [place] [address] August, [facility] [address] [id number] [address] [place] [address], [place] [address] August, [facility] [address] [id number] [address] [place] [address], [place] [address] August, [facility] [address] [id number] [address] [place] [address], [place] [address] August, [facility] [address] [id number] [address] [place] [address], [place] [address] May, [facility] [address] [id number] [address] [place] [address], [place] [address] May, [facility] [address] [id number] [address] [place] [address], [place] [address] May, [facility] [address] [id number] [address] [place] [address], [place] [address] May, [facility] [address] [id number] [address] [place] [address], [place] [address] Apr, [facility] [address] [id number] [address] [place] [address], [place] [address] Apr, [facility] [address] [id number] [address] [place] [address], [place] [address] Jan, [facility] [address] [id number] [address] [place] [address], [place] [address] Jan, [facility] [address] [id number] [address] [place] [address], [place] [address] Jan, [facility] [address] [id number] [address] [place] [address], [place] [address] Jan, [facility] [address] [id number] [address] [place] [address], [place] [address] Jan, [facility] [address] [id number] [address] [place] [address], [place] [address] 30 Dec, 2012 [facility] [address] [id number] [address] [place] [address], [place] [address] 30 Dec, 2012 [facility] [address] [id number] [address] [place] [address], [place] [address] 25 Dec, 2012 [facility] [address] [id number] [address] [place] [address], [place] [address] Dec, [facility] [address] [id number] [address] [place] [address], [place] [address] Dec, [facility] [address] [id number] [address] [place] [address], [place] [address] 30 Nov, 2012 [facility] [address] [id number] [address] [place] [address], [place] [address] Nov, [facility] [address] [id number] [address] [place] [address], [place] [address] Nov, [facility] [address] [id number] [address] [place] [address], [place] [address] Nov, [facility] [address] [id number] [address] [place] [address], [place] [address] Nov, [facility] [address] [facility] [id number] [address] [place] [address] Nov, IMMUNIZATIONS No Known Immunizations SOCIAL HISTORY [...] 05/2017- Negative exercise stress test Dr Perdomo Medical History pneumonia/sepsis Surgical History No Surgical history information Hospitalization History [facility]- dx'd w/ D M 2008 Hospitalization History WENT TO ER FOR COLD S/S 09/07/14 Hospitalization History HTN, went to ER May 18, 2017 Hospitalization History pneumonia/sepsis 01/11-08/2017
--- OUTSIDE RECORDS SUMMARY | 2019-09-16 15:03 | XMS REPORT ---
Author Author Tony Roblero Doctor Organization [facility] Address Unknown Phone Unavailable Care Team Providers Care Banking Officer Name Role Phone Migration, Doctor Unavailable Unavailable PROBLEMS Type Condition ICD9-CM Code ONE79-CX Code Onset Dates Condition S tatus SNOMED Code Problem Type 2 diabetes mellitus with diabetic neuropathy E11.40 Active 2346374930474 Problem Abnormal CBC R79.89 Active 8065268 06 Problem Mixed hyperlipidemia E78.2 Active 773249955 Problem Osteoarthritis, unspecified osteoarthritis type, unspecified site M19.90 Active 085602490 Problem Essential hypertension I10 Active 87465882 Problem Acute idiopathic gout involving toe of right foot M10.071 Active 50845173 Problem Impotence N52.9 Active 053241321 Problem Type 2 diabetes mellitus wit h diabetic neuropathy, without long-term current use of insulin E11.40 Active 18711 006 Problem Non compliance with medical treatment Z91.19 Active 4218617 Problem Neuropathy G62.9 Active 569623848 Problem Anxiety F41.9 Active 68625002 Problem Acute nonseasonal allergic rhinitis due to pollen J30.1 Active 35728664 Problem Major depressive disorder, single episode, unspecified F32.9 Active 31903838 ALLERGIES No Information ENCOUNTERS Encounter Location Date Diagnosis [place] [id number] [facility] [place] [id number] [address] [place] [address] Nov, [place] [address] [address] [facility] [place] [id number] [address] [place] [address] August, [facility] [address] [facility] [place] [id number] [address] [place] [address] August, Major depressive disorder, s kobe episode, unspecified F32.9 [facility] [address] [facility] [place] [id number] [address] [place] [address] August, Type 2 diabetes mellitus wit h diabetic neuropathy, without long- term current use of insulin E11.40 and Major depressive disorder, single episode, unspecified F32.9 [facility] [address] [facility] [place] [id number] [address] [place] [address] August, Hematemesis, presence of francisco sea not specified K92.0 [facility] [address] [facility] [place] [id number] [address] [place] [address] August, [facility] [address] [facility] [place] [id number] [address] [place] [address] August, Exercise counseling Z71.82 [facility] [address] [facility] [place] [id number] [address] [place] [address] Jul, [facility] [address] [facility] [place] [id number] [address] [place] [phone] Jul, [facility] [address] [facility] [place] [id number] [address] [place] [address] Jun, Type 2 diabetes mellitus wit h diabetic neuropathy, without long- term current use of insulin E11.40 [facility] [address] [facility] [place] [id number] [address] [place] [address] Jun, [facility] [address] [facility] [place] [id number] [address] [place] [address] Jun, [facility] [address] [facility] [place] [id number] [address] [place] [address] May, [facility] [address] [facility] [place] [id number] [address] [place] [address] May, Type 2 diabetes mellitus wit h diabetic neuropathy E11.40 [facility] [address] [facility] [place] [id number] [address] [place] [address] 17 May, 2019 [address] [place] [address] [id number] [address] May, [facility] [address] [facility] [place] [id number] [address] [place] [address] 05 May, 2019 Increased urinary frequency R35.0 and Type 2 diabetes mellitus with diabetic neuropathy E11.40 [facility] [address] [facility] [place] [id number] [address] [place] [address] Apr, [facility] [address] [facility] [place] [id number] [address] [place] [address] Mar, Trochanteric bursitis of rig ht hip M70.61 and Type 2 diabetes mellitus with diabetic neuropathy E11.40 [facility] [address] [facility] [place] [id number] [address] [place] [address] Feb, Right knee pain, unspecified chronicity M25.561 [facility] [address] [facility] [place] [id number] [address] [place] [address] Jan, Bronchitis J40 [facility] [address] [facility] [place] [id number] [address] [place] [address] Oct, Type 2 diabetes mellitus wit h diabetic neuropathy E11.40 ; Essential hypertension I10 and Major depressive disorder, single episode, unspecified F32.9 [place] [address] [address] [place] [id number] [address] [place] [address] Sep, Type 2 diabetes mellitus wit h diabetic neuropathy E11.40 [facility] [address] [facility] [place] [id number] [address] [place] [address] August, Essential hypertension I10 [facility] [address] [facility] [place] [id number] [address] [place] [address] Jul, Major depressive disorder, s kobe episode, unspecified F32.9 [facility] [address] [facility] [place] [id number] [address] [place] [address] Jun, Bronchitis J40 [facility] [address] [facility] [place] [id number] [address] [place] [address] May, Mixed hyperlipidemia E78.2 [facility] [address] [facility] [place] [id number] [address] [place] [address] Feb, Major depressive disorder, s kobe episode, unspecified F32.9 [facility] [address] [facility] [place] [id number] [address] [place] [address] Feb, Major depressive disorder, s kobe episode, unspecified F32.9 [facility] [address] [id number] [address] [place] [address] Jan, History of pneumonia Z87.01 and Type 2 diabetes mellitus with hyperglycemia E11.65 [facility] [address] [id number] [address] [place] [address] Jan, [facility] [address] [facility] [place] [id number] [address] [place] [address] Jan, Congestion of respiratory tr act J98.8 [facility] [address] [id number] [place] [id number] Nov, Dental caries K02.9 [facility] [address] [id number] [place] [id number] Nov, Dental examination Z01.20 [facility] [address] [id number] Oct, Acute oral pain K13.79 [facility] [address] [facility] [place] [id number] [address] [place] [address] Oct, [facility] [address] [facility] [place] [id number] [address] [place] [address] Oct, [facility] [address] [facility] [place] [id number] [address] [place] [address] Oct, Epigastric abdominal pain R1 0.13 ; Type 2 diabetes mellitus with diabetic neuropathy E11.40 ; Mixed hyperlipidemia E78.2 ; Essential hypertension I10 ; Major depressive disorder, single episode, unspecified F32.9 ; Neuropathy G62.9 and Non compliance w medication regimen Z91.14 [facility] [address] [facility] [place] [id number] [address] [place] [address] Oct, [facility] [address] [facility] [place] [id number] [address] [place] [address] August, [facility] [address] [facility] [place] [id number] [address] [place] [address] August, Type 2 diabetes mellitus wit h diabetic neuropathy E11.40 ; Mixed hyperlipidemia E78.2 ; Essential hypertension I10 ; Acute idiopathic gout involving toe of right foot M10.071 ; Neuropathy G62.9 and Major depressive disorder, single episode, unspecified F32.9 [place] [address] [address] August, [place] [address] [address] Jul, Essential hypertension I10 ; Neuropathy G62.9 and Musculoskeletal pain M79.1 [place] [address] [address] 14 May, 2017 [place] [address] [address] 09 May, 2017 Type 2 diabetes mellitus wit h diabetic neuropathy E11.40 ; [facility] (current) use of insulin Z79.4 ; Essential hypertension I10 ; Mixed hyperlipidemia E78.2 ; Non compliance w medication regimen Z91.14 ; Non compliance with medical treatment Z91.19 ; Injury of right thumb, initial encounter S69.91XA and Major depressive disorder, single episode, unspecified F32.9 [place] [address] [address] 08 May, 2017 [place] [address] [address] May, [place] [address] [address] May, Chest pain, unspecified type R07.9 and Type 2 diabetes mellitus with diabetic neuropathy E11.40 [place] [address] [address] May, [place] [address] [address] Feb, Abnormal CBC R79.89 [place] [address] [place] [address] Feb, [facility] [address] [facility] [place] [id number] [address] [place] [address] Jan, Type 2 diabetes mellitus wit h diabetic neuropathy E11.40 ; Mixed hyperlipidemia E78.2 ; Neuropathy G62.9 ; Osteoarthritis, unspecified osteoarthritis type, unspecified site M19.90 ; Acute nonseasonal allergic rhinitis due to pollen J30.1 ; Impotence N52.9 ; Anxiety F41.9 ; Essential hypertension I10 and Non compliance w medication regimen Z91.14 [facility] [address] [facility] [id number] [address] [place] [address] Oct, [facility] [address] [facility] [id number] [address] [place] [address] Sep, Type 2 diabetes mellitus wit h diabetic neuropathy E11.40 ; Non compliance w medication regimen Z91.14 ; Non compliance with medical treatment Z91.19 and Foot pain, left M79.672 [facility] [address] [place] [id number] [address] [place] [address] Jul, [facility] [address] [place] [id number] [place] [address] Jul, [facility] [address] [place] [id number] [address] [place] [address] May, Anxiety F41.9 ; Type 2 diabe kang mellitus with diabetic neuropathy E11.40 ; Non compliance w medication regimen Z91.14 ; Mixed hyperlipidemia E78.2 and Essential hypertension I10 [facility] [address] [facility] [id number] [address] [place] [address] Apr, Osteoarthritis, unspecified osteoarthritis type, unspecified site M19.90 [facility] [address] [place] [id number] [address] [place] [address] Apr, [facility] [address] [place] [id number] [address] [place] [address] Apr, Type 2 diabetes mellitus wit h diabetic neuropathy E11.40 ; Non compliance w medication regimen Z91.14 ; Mixed hyperlipidemia E78.2 ; Essential hypertension I10 ; Plantar wart B07.0 and Anxiety F41.9 [place] [address] [place] [id number] [address] [place] [address] Apr, [facility] [address] [place] [id number] [address] [place] [address] Apr, [place] [address] [address] Mar, Osteoarthritis, unspecified osteoarthritis type, unspecified site M19.90 and Impotence N52.9 [place] [address] [place] [id number] [address] [place] [address] Mar, [place] [address] [place] [id number] [address] [place] [address] Mar, Type 2 diabetes mellitus wit h diabetic neuropathy E11.40 ; Anxiety F41.9 and Intractable vomiting with nausea, unspecified vomiting type R11.2 [place] [address] [place] [id number] [address] [place] [address] Mar, Type 2 diabetes mellitus wit h diabetic neuropathy E11.40 and Intractable vomiting with nausea, unspecified vomiting type R11.2 [place] [address] [place] [id number] [address] [place] [address] Feb, Porokeratosis Q82.8 and Type 2 diabetes mellitus with diabetic neuropathy E11.40 [place] [address] [place] [id number] [address] [place] [address] Jan, [place] [address] [place] [id number] [address] [place] [address] Dec, [place] [address] [place] [id number] [address] [place] [address] Dec, Type 2 diabetes mellitus wit h diabetic neuropathy E11.40 ; Non compliance w medication regimen Z91.14 ; Impotence N52.9 ; Essential hypertension I10 ; Hyperlipidemia E78.5 ; Neuropathy G62.9 ; 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 and Plantar wart B07.0 [place] [address] [address] Dec, [place] [address] [address] Nov, Dental examination Z01.20 [place] [address] [address] Oct, Osteoarthritis, unspecified osteoarthritis type, unspecified site M19.90 ; Type 2 diabetes mellitus with diabetic neuropathy E11.40 ; Impotence N52.9 ; Mixed hyperlipidemia E78.2 ; Hyperlipidemia E78.5 ; Essential hypertension I10 and Plantar wart B07.0 [place] [address] [address] Sep, [place] [address] [address] August, Abnormal thyroid blood test R94.6 [place] [address] [address] August, Dental examination Z01.20 [place] [address] [address] 17 Aug, 2015 Type 2 diabetes mellitus wit h diabetic neuropathy E11.40 ; Non compliance w medication regimen Z91.14 ; Impotence N52.9 ; Mixed hyperlipidemia E78.2 ; Abscessed tooth K04.7 and Shoulder pain, left M25.512 [place] [address] [address] 12 May, 2015 Type 2 diabetes mellitus wit h diabetic neuropathy E11.40 ; Non compliance w medication regimen Z91.14 ; Non compliance with medical treatment Z91.19 ; Shoulder pain, left M25.512 ; General medical exam Z00.00 ; Impotence N52.9 and Hyperlipidemia E78.5 [place] [address] [address] Jan, Type 2 diabetes mellitus wit h diabetic neuropathy E11.40 ; Noncompliance w/medication treatment due to intermit use of medication Z91.14 and Impotence N52.9 [facility] [address] [address] Jan, [facility] [address] [address] Dec, [facility] [address] [address] Nov, [facility] [address] [address] Nov, [facility] [address] [address] Nov, [facility] [address] [address] Nov, Diabetes with neurological m anifestations, type II or unspecified type, not stated as uncontrolled 250.60 ; Hyperlipidemia 272.4 ; Allergic rhinitis, cause unspecified 477.9 and Depression 311 [facility] [address] [address] Sep, [facility] [address] [address] Sep, [facility] [address] [address] Sep, [facility] [address] [address] Sep, Depression 311 and Diabetes type 2, uncontrolled 250.02 [facility] [address] [place] [id number] [place] [address] August, [facility] [address] [place] [id number] [address] [place] [address] Jul, [facility] [address] [address] Jul, [facility] [address] [id number] [address] [place] [address], [place] [address] Apr, [facility] [address] [id number] [address] [place] [address], [place] [address] Apr, [facility] [address] [id number] [address] [place] [address], [place] [address] Apr, [facility] [address] [id number] [address] [place] [address], [place] [address] Apr, [facility] [address] [id number] [address] [place] [address], [place] [address] Jan, [facility] [address] [id number] [address] [place] [address], [place] [address] Jan, [facility] [address] [id number] [address] [place] [address], [place] [address] Nov, [facility] [address] [id number] [address] [place] [address], [place] [address] Nov, [facility] [address] [id number] [address] [place] [address], [place] [address] Nov, [facility] [address] [id number] [address] [place] [address], [place] [address] Nov, [facility] [address] [id number] [address] [place] [address], [place] [address] Nov, [facility] [address] [id number] [address] [place] [address], [place] [address] Nov, [facility] [address] [id number] [address] [place] [address], [place] [address] Nov, [facility] [address] [id number] [address] [place] [address], [place] [address] Nov, [facility] [address] [id number] [address] [place] [address], [place] [address] August, [facility] [address] [id number] [address] [place] [address], [place] [address] August, [facility] [address] [id number] [address] [place] [address], [place] [address] August, [facility] [address] [id number] [address] [place] [address], [place] [address] August, [facility] [address] [id number] [address] [place] [address], [place] [address] August, [facility] [address] [id number] [address] [place] [address], [place] [address] May, [facility] [address] [id number] [address] [place] [address], [place] [address] May, [facility] [address] [id number] [address] [place] [address], [place] [address] May, [facility] [address] [id number] [address] [place] [address], [place] [address] May, [facility] [address] [id number] [address] [place] [address], [place] [address] Apr, [facility] [address] [id number] [address] [place] [address], [place] [address] Apr, [facility] [address] [id number] [address] [place] [address], [place] [address] Jan, [facility] [address] [id number] [address] [place] [address], [place] [address] Jan, [facility] [address] [id number] [address] [place] [address], [place] [address] Jan, [facility] [address] [id number] [address] [place] [address], [place] [address] Jan, [facility] [address] [id number] [address] [place] [address], [place] [address] Jan, [facility] [address] [id number] [address] [place] [address], [place] [address] Dec, [facility] [address] [id number] [address] [place] [address] Dec, [facility] [address] [id number] [address] [place] [address] Dec, [facility] [address] [id number] [address] [place] [address] Dec, [facility] [address] [id number] [address] [place] [address] Dec, [facility] [address] [id number] [address] [place] [address] Nov, [facility] [address] [id number] [address] [place] [address] Nov, [facility] [address] [id number] [address] [place] [address] Nov, [facility] [address] [id number] [address] [place] [address] Nov, [facility] [address] [id number] [address] [place] [address] Nov, [facility] [address] [id number] [address] [place] [address] Nov, IMMUNIZATIONS No Known Immunizations SOCIAL HISTORY Never Assessed REASON FOR VISIT PLAN OF CARE VITAL SIGNS Height 68 in 2012-12-08 Weight 165.74 lbs 2012-12-08 Temperature 97.7 degrees Fahrenheit 2012-12-08 Heart Rate 76 bpm 2012-12-08 Respiratory Rate 18 2012-12-08 Blood pressure systolic 98 mmHg 2012-12-08 Blood pressure diastolic 60 mmHg 2012-12-08 MEDICATIONS Unknown Medications RESULTS No Results PROCEDURES Procedure Date Ordered Result Body Site LIPID PANEL Dec 08, 2012 VENIPUNCT, ROUTINE* Dec 08, 2012 INSTRUCTIONS MEDICATIONS ADMINISTERED No Known Medications MEDICAL (GENERAL) HISTORY Type Description Date Medical History DM Medical History Depression Medical History Diabetic Neuropathy Medical History Allergies Medical History Porokeratosis Medical History Plantar wart Medical History 05/2017- Negative exercise stress test Dr Khalid Medical History pneumonia/sepsis Surgical History No Surgical history information Hospitalization History [facility]- dx'd w/ D M 2008 Hospitalization History WENT TO ER FOR COLD S/S 09/07/14 Hospitalization History HTN, went to ER May 18, 2017 Hospitalization History pneumonia/sepsis 01/11-08/2017
--- OUTSIDE RECORDS SUMMARY | 2019-09-16 15:03 | XMS REPORT ---
Author Author Tony Roblero Doctor Organization [facility] Address Unknown Phone Unavailable Care Team Providers Care Nurse School Name Role Phone Migration, Doctor Unavailable Unavailable PROBLEMS Type Condition ICD9-CM Code ENG43-XP Code Onset Dates Condition S tatus SNOMED Code Problem Type 2 diabetes mellitus with diabetic neuropathy E11.40 Active [id number] Problem Abnormal CBC R79.89 Active 0626708 06 Problem Mixed hyperlipidemia E78.2 Active 959443223 Problem Osteoarthritis, unspecified osteoarthritis type, unspecified site M19.90 Active 351098437 Problem Essential hypertension I10 Active 33024992 Problem Acute idiopathic gout involving toe of right foot M10.071 Active 23917400 Problem Impotence N52.9 Active 253471468 Problem Type 2 diabetes mellitus wit h diabetic neuropathy, without long-term current use of insulin E11.40 Active 34168 006 Problem Non compliance with medical treatment Z91.19 Active 8761440 Problem Neuropathy G62.9 Active 464576968 Problem Anxiety F41.9 Active 29881005 Problem Acute nonseasonal allergic rhinitis due to pollen J30.1 Active 16922555 Problem Major depressive disorder, single episode, unspecified F32.9 Active 53148889 ALLERGIES No Information ENCOUNTERS Encounter Location Date Diagnosis [facility] [address] [facility] [id number] [address] [place] [address] August, [facility] [address] [facility] [id number] [address] [place] [address] August, Hematemesis, presence of francisco sea not specified K92.0 [facility] [address] [facility] [id number] [address] [place] [address] August, [facility] [address] [place] [id number] [address] [place] [address] August, Exercise counseling Z71.82 [facility] [address] [place] [id number] [address] [place] [address] Jul, [facility] [address] [facility] [id number] [address] [place] [id number] Jul, [facility] [address] [facility] [id number] [address] [place] [address] Jun, Type 2 diabetes mellitus wit h diabetic neuropathy, without long- term current use of insulin E11.40 [facility] [address] [facility] [id number] [address] [place] [address] Jun, [facility] [address] [facility] [id number] [address] [place] [address] Jun, [facility] [address] [facility] [id number] [address] [place] [address] May, [facility] [address] [facility] [id number] [address] [place] [address] May, Type 2 diabetes mellitus wit h diabetic neuropathy E11.40 [facility] [address] [facility] [id number] [address] [place] [address] May, Bronchitis J40 [address] [id number] [address] May, [facility] [address] [facility] [id number] [address] [place] [address] May, Increased urinary frequency R35.0 and Type 2 diabetes mellitus with diabetic neuropathy E11.40 [facility] [address] [facility] [id number] [address] [place] [address] Apr, [facility] [address] [facility] [id number] [address] [place] [address] Mar, Trochanteric bursitis of rig ht hip M70.61 and Type 2 diabetes mellitus with diabetic neuropathy E11.40 [facility] [address] [facility] [id number] [address] [place] [address] Feb, Right knee pain, unspecified chronicity M25.561 [facility] [address] [facility] [id number] [address] [place] [address] Jan, Bronchitis J40 [facility] [address] [id number] [address] [place] [address] Oct, Type 2 diabetes mellitus wit h diabetic neuropathy E11.40 ; Essential hypertension I10 and Major depressive disorder, single episode, unspecified F32.9 [facility] [address] [facility] [id number] [address] [place] [address] Sep, Type 2 diabetes mellitus wit h diabetic neuropathy E11.40 [facility] [address] [id number] [address] [place] [address] August, Essential hypertension I10 [place] [address] [facility] [id number] [address] [place] [address] Jul, Major depressive disorder, s kobe episode, unspecified F32.9 [facility] [address] [facility] [id number] [address] [place] [address] Jun, Bronchitis J40 [facility] [address] [facility] [id number] [address] [place] [address] May, Mixed hyperlipidemia E78.2 [facility] [address] [facility] [id number] [address] [place] [address] Feb, Major depressive disorder, s kobe episode, unspecified F32.9 [facility] [address] [facility] [id number] [address] [place] [address] Feb, Major depressive disorder, s kobe episode, unspecified F32.9 [facility] [address] [facility] [id number] [address] [place] [address] Jan, History of pneumonia Z87.01 and Type 2 diabetes mellitus with hyperglycemia E11.65 [facility] [address] [facility] [id number] [address] [place] [address] Jan, [facility] [address] [facility] [id number] [address] [place] [address] Jan, Congestion of respiratory tr act J98.8 [facility] [address] [id number] [address] [place] [id number] Nov, Dental caries K02.9 [facility] [address] [id number] [address] [place] [address] [id number] Nov, Dental examination Z01.20 [facility] [address] [id number] [address] [place] [id number] Oct, Acute oral pain K13.79 [facility] [address] [facility] [id number] [address] [place] [address] Oct, [facility] [address] [facility] [id number] [address] [place] [address] Oct, [facility] [address] [place] [id number] [address] [place] [address] Oct, Epigastric abdominal pain R1 0.13 ; Type 2 diabetes mellitus with diabetic neuropathy E11.40 ; Mixed hyperlipidemia E78.2 ; Essential hypertension I10 ; Major depressive disorder, single episode, unspecified F32.9 ; Neuropathy G62.9 and Non compliance w medication regimen Z91.14 [facility] [id number] [place] [address] Oct, [facility] [address] [place] [id number] [address] [place] [address] August, [facility] [address] [place] [id number] [address] [place] [address] August, Type 2 diabetes mellitus wit h diabetic neuropathy E11.40 ; Mixed hyperlipidemia E78.2 ; Essential hypertension I10 ; Acute idiopathic gout involving toe of right foot M10.071 ; Neuropathy G62.9 and Major depressive disorder, single episode, unspecified F32.9 [facility] [address] [place] [id number] [address] [place] [address] August, [facility] [address] [place] [id number] [address] [place] [phone] Jul, Essential hypertension I10 ; Neuropathy G62.9 and Musculoskeletal pain M79.1 [place] [address] [place] [id number] [address] [place] [id number] 14 May, 2017 [place] [address] [address] 09 May, 2017 Type 2 diabetes mellitus wit h diabetic neuropathy E11.40 ; prison (current) use of insulin Z79.4 ; Essential hypertension I10 ; Mixed hyperlipidemia E78.2 ; Non compliance w medication regimen Z91.14 ; Non compliance with medical treatment Z91.19 ; Injury of right thumb, initial encounter S69.91XA and Major depressive disorder, single episode, unspecified F32.9 [place] [address] [id number] 08 May, 2017 [place] [address] [id number] 07 May, 2017 [place] [address] [address] May, Chest pain, unspecified type R07.9 and Type 2 diabetes mellitus with diabetic neuropathy E11.40 [place] [address] [address] May, [place] [address] [address] Feb, Abnormal CBC R79.[address] [address] Feb, [place] [address] [address] Jan, Type 2 diabetes mellitus wit h diabetic neuropathy E11.40 ; Mixed hyperlipidemia E78.2 ; Neuropathy G62.9 ; Osteoarthritis, unspecified osteoarthritis type, unspecified site M19.90 ; Acute nonseasonal allergic rhinitis due to pollen J30.1 ; Impotence N52.9 ; Anxiety F41.9 ; Essential hypertension I10 and Non compliance w medication regimen Z91.14 [place] [address] [place] [address] Oct, [facility] [address] [facility] [id number] [address] [place] [address] Sep, Type 2 diabetes mellitus wit h diabetic neuropathy E11.40 ; Non compliance w medication regimen Z91.14 ; Non compliance with medical treatment Z91.19 and Foot pain, left M79.672 [facility] [address] [place] [id number] [address] [place] [address] Jul, [facility] [address] [facility] [id number] [address] [place] [address] Jul, [facility] [address] [place] [id number] [address] [place] [address] May, Anxiety F41.9 ; Type 2 diabe kang mellitus with diabetic neuropathy E11.40 ; Non compliance w medication regimen Z91.14 ; Mixed hyperlipidemia E78.2 and Essential hypertension I10 [facility] [address] [place] [id number] [address] [place] [address] Apr, Osteoarthritis, unspecified osteoarthritis type, unspecified site M19.90 [facility] [address] [place] [id number] [address] [place] [address] Apr, [facility] [address] [place] [id number] [address] [place] [address] Apr, Type 2 diabetes mellitus wit h diabetic neuropathy E11.40 ; Non compliance w medication regimen Z91.14 ; Mixed hyperlipidemia E78.2 ; Essential hypertension I10 ; Plantar wart B07.[address] [facility] [address] [facility] [id number] [address] [place] [address] Apr, [facility] [address] [place] [id number] [address] [place] [address] Apr, [facility] [address] [place] [id number] [address] [place] [address] Mar, Osteoarthritis, unspecified osteoarthritis type, unspecified site M19.90 and Impotence N52.9 [place] [address] [address] Mar, [place] [address] [address] Mar, Type 2 diabetes mellitus wit h diabetic neuropathy E11.40 ; Anxiety F41.9 and Intractable vomiting with nausea, unspecified vomiting type R11.2 [place] [address] [address] Mar, Type 2 diabetes mellitus wit h diabetic neuropathy E11.40 and Intractable vomiting with nausea, unspecified vomiting type R11.2 [place] [address] [address] Feb, Porokeratosis Q82.8 and Type 2 diabetes mellitus with diabetic neuropathy E11.40 [place] [address] [address] Jan, [place] [address] [address] Dec, [place] [address] [address] Dec, Type 2 diabetes mellitus wit h diabetic neuropathy E11.40 ; Non compliance w medication regimen Z91.14 ; Impotence N52.9 ; Essential hypertension I10 ; Hyperlipidemia E78.5 ; Neuropathy G62.9 ; 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 and Plantar wart B07.0 [place] [address] [place] [id number] [address] [place] [address] Dec, [place] [address] [address] Nov, Dental examination Z01.20 [place] [address] [place] [id number] [address] [place] [address] Oct, Osteoarthritis, unspecified osteoarthritis type, unspecified site M19.90 ; Type 2 diabetes mellitus with diabetic neuropathy E11.40 ; Impotence N52.9 ; Mixed hyperlipidemia E78.2 ; Hyperlipidemia E78.5 ; Essential hypertension I10 and Plantar wart B07.0 [place] [address] [address] Sep, [place] [address] [address] August, Abnormal thyroid blood test R94.[address] [address] 18 Aug, 2015 Dental examination Z01.[address] [address] 17 Aug, 2015 Type 2 diabetes mellitus wit h diabetic neuropathy E11.40 ; Non compliance w medication regimen Z91.14 ; Impotence N52.9 ; Mixed hyperlipidemia E78.2 ; Abscessed tooth K04.7 and Shoulder pain, left M25.[address] [address] 12 May, 2015 Type 2 diabetes mellitus wit h diabetic neuropathy E11.40 ; Non compliance w medication regimen Z91.14 ; Non compliance with medical treatment Z91.19 ; Shoulder pain, left M25.512 ; General medical exam Z00.00 ; Impotence N52.9 and Hyperlipidemia E78.[address] [address] Jan, Type 2 diabetes mellitus wit h diabetic neuropathy E11.40 ; Noncompliance w/medication treatment due to intermit use of medication Z91.14 and Impotence N52.[address] [address] Jan, [address] [address] Dec, [address] [address] Nov, [place] [id number] [address] [place] [address] Nov, [facility] [address] [id number] [address] [place] [address] Nov, [facility] [address] [id number] [address] [place] [id number] Nov, Diabetes with neurological m anifestations, type II or unspecified type, not stated as uncontrolled 250.60 ; Hyperlipidemia 272.4 ; Allergic rhinitis, cause unspecified 477.[address] [facility] [address] [id number] [address] [place] [address] Sep, [facility] [address] [id number] [address] [place] [address] Sep, [facility] [address] [facility] [id number] [address] [place] [address] Sep, [facility] [address] [facility] [id number] [address] [place] [address] Sep, Depression 311 and Diabetes type 2, uncontrolled 250.02 [facility] [address] [id number] [address] [place] [id number] August, [facility] [address] [facility] [id number] [address] [place] [address] Jul, [facility] [address] [facility] [id number] [address] [place] [address] Jul, [facility] [address] [id number] [address] [place] [address] Apr, [facility] [address] [id number] [address] [place] [address] Apr, [facility] [address] [facility] [id number] [address] [place] [address] Apr, [facility] [address] [facility] [id number] [address] [place] [address] Apr, [facility] [place] [facility] [address] [id number] [facility] [place] [address] Jan, [facility] [address] [id number] [facility] [place] [address] Jan, [facility] [address] [id number] [facility] [place] [address] Nov, [facility] [address] [id number] [address] [place] [address], [place] [address] Nov, [facility] [address] [id number] [address] [place] [address], [place] [address] Nov, [facility] [address] [id number] [address] [place] [address], [place] [address] Nov, [facility] [address] [id number] [address] [place] [address], [place] [address] Nov, [facility] [address] [id number] [address] [place] [address], [place] [address] Nov, [facility] [address] [id number] [address] [place] [address], [place] [address] Nov, [facility] [address] [id number] [address] [place] [address], [place] [address] Nov, [facility] [address] [id number] [address] [place] [address], [place] [address] August, [facility] [address] [id number] [address] [place] [address], [place] [address] August, [facility] [address] [id number] [address] [place] [address], [place] [address] August, [facility] [address] [id number] [address] [place] [address], [place] [address] August, [facility] [address] [id number] [address] [place] [address], [place] [address] August, [facility] [address] [id number] [address] [place] [address], [place] [address] May, [facility] [address] [id number] [address] [place] [address], [place] [address] May, [facility] [place] [facility] [address] [id number] [address] [place] [address], [place] [address] May, [facility] [place] [facility] [address] [id number] [address] [place] [address], [place] [address] May, [facility] [place] [facility] [address] [id number] [address] [place] [address], [place] [address] Apr, [facility] [address] [id number] [address] [place] [address], [place] [address] Apr, [facility] [address] [id number] [address] [place] [address], [place] [address] Jan, [facility] [address] [id number] [address] [place] [address], [place] [address] Jan, [facility] [place] [facility] [address] [id number] [address] [place] [address], [place] [address] Jan, [facility] [address] [id number] [address] [place] [address], [place] [address] Jan, [facility] [place] [facility] [address] [id number] [address] [place] [address], [place] [address] Jan, [facility] [address] [id number] [address] [place] [address], [place] [address] 30 Dec, 2012 [facility] [place] [facility] [address] [id number] [address] [place] [address], [place] [address] 30 Dec, 2012 [facility] [place] [facility] [address] [id number] [address] [place] [address], [place] [address] 25 Dec, 2012 [facility] [place] [facility] [address] [id number] [address] [place] [address], [place] [address] Dec, 2012 [facility] [place] [facility] [address] [id number] [address] [place] [address], [place] [address] Dec, 2012 [facility] [place] [facility] [address] [id number] [address] [place] [id number] Nov, [facility] [address] [id number] [address] [place] [address] Nov, [facility] [address] [id number] [address] [place] [address] Nov, [facility] [address] [id number] [address] [place] [address] Nov, [facility] [address] [id number] [address] [place] [address] Nov, [facility] [address] [facility] [id number] [address] [place] [id number] Nov, IMMUNIZATIONS No Known Immunizations SOCIAL HISTORY Never Assessed REASON FOR VISIT PLAN OF CARE VITAL SIGNS Height 68 in 2013-02-06 Weight 163.56 lbs 2013-02-06 Temperature 97.5 degrees Fahrenheit 2013-02-06 Heart Rate 76 bpm 2013-02-06 Respiratory Rate 16 2013-02-06 Blood pressure systolic 114 mmHg 2013-02-06 Blood pressure diastolic 80 mmHg 2013-02-06 MEDICATIONS Unknown Medications RESULTS No Results PROCEDURES No Known procedures INSTRUCTIONS MEDICATIONS ADMINISTERED No Known Medications MEDICAL (GENERAL) HISTORY Type Description Date Medical History DM Medical History Depression Medical History Diabetic Neuropathy Medical History Allergies Medical History Porokeratosis Medical History Plantar wart Medical History 05/2017- Negative exercise stress test Dr Perdomo Medical History pneumonia/sepsis Surgical History No Surgical history information Hospitalization History [facility]- dx'd w/ D M 2008 Hospitalization History WENT TO ER FOR COLD S/S 09/07/14 Hospitalization History HTN, went to ER May 18, 2017 Hospitalization History pneumonia/sepsis 01/11-08/2017
--- OUTSIDE RECORDS SUMMARY | 2019-09-16 15:03 | XMS REPORT ---
Author Author Tony Roblero Doctor Organization [facility] Address Unknown Phone Unavailable Care Team Providers Care Systems Test Engineer Name Role Phone Migration, Doctor Unavailable Unavailable PROBLEMS Type Condition ICD9-CM Code [id number] Code Onset Dates Condition S tatus SNOMED Code Problem Type 2 diabetes mellitus with diabetic neuropathy E11.40 Active 8516872851057 Problem Abnormal CBC R79.89 Active 5002583 06 Problem Mixed hyperlipidemia E78.2 Active 165545915 Problem Osteoarthritis, unspecified osteoarthritis type, unspecified site M19.90 Active 822871343 Problem Essential hypertension I10 Active 07701282 Problem Acute idiopathic gout involving toe of right foot M10.071 Active 45603377 Problem Impotence N52.9 Active 171932074 Problem Type 2 diabetes mellitus wit h diabetic neuropathy, without long-term current use of insulin E11.40 Active 63174 006 Problem Non compliance with medical treatment Z91.19 Active 2686977 Problem Neuropathy G62.9 Active 091650633 Problem Anxiety F41.9 Active 59043941 Problem Acute nonseasonal allergic rhinitis due to pollen J30.1 Active 51271350 Problem Major depressive disorder, single episode, unspecified F32.9 Active 86533983 ALLERGIES No Information ENCOUNTERS Encounter Location Date Diagnosis [place] [address] [facility] [id number] [address] [place] [address] August, Exercise counseling Z71.82 [place] [address] [facility] [id number] [address] [place] [address] Jul, [place] [address] [facility] [id number] [address] [place] [address] Jul, [place] [address] [facility] [id number] [address] [place] [address] Jun, Type 2 diabetes mellitus wit h diabetic neuropathy, without long- term current use of insulin E11.40 [place] [address] [facility] [id number] [address] [place] [address] Jun, [facility] [address] [facility] [id number] [address] [place] [address] Jun, [facility] [address] [facility] [id number] [address] [place] [address] May, [facility] [address] [facility] [id number] [address] [place] [address] May, Type 2 diabetes mellitus wit h diabetic neuropathy E11.40 [facility] [address] [facility] [id number] [address] [place] [address] May, Bronchitis J40 [id number] [place] [address] May, [facility] [address] [facility] [id number] [address] [place] [address] May, Increased urinary frequency R35.0 and Type 2 diabetes mellitus with diabetic neuropathy E11.40 [facility] [address] [facility] [id number] [address] [place] [id number] Apr, [facility] [address] [facility] [id number] [address] [place] [address] Mar, Trochanteric bursitis of rig ht hip M70.61 and Type 2 diabetes mellitus with diabetic neuropathy E11.40 [facility] [address] [facility] [id number] [address] [place] [address] Feb, Right knee pain, unspecified chronicity M25.561 [facility] [address] [facility] [id number] [address] [place] [address] Jan, Bronchitis J40 [facility] [address] [facility] [id number] [address] [place] [address] Oct, Type 2 diabetes mellitus wit h diabetic neuropathy E11.40 ; Essential hypertension I10 and Major depressive disorder, single episode, unspecified F32.9 [facility] [address] [facility] [id number] [address] [place] [id number] Sep, Type 2 diabetes mellitus wit h diabetic neuropathy E11.40 [facility] [address] [facility] [id number] [address] [place] [address] August, Essential hypertension I10 [facility] [address] [facility] [id number] [address] [place] [phone] Jul, Major depressive disorder, s kobe episode, unspecified F32.9 [facility] [address] [facility] [id number] [address] [place] [id number] Jun, Bronchitis J40 [facility] [address] [facility] [id number] [address] [place] [address] May, Mixed hyperlipidemia E78.2 [facility] [address] [facility] [id number] [address] [place] [id number] Feb, Major depressive disorder, s kobe episode, unspecified F32.9 [facility] [address] [facility] [id number] [address] [place] [phone] Feb, Major depressive disorder, s kobe episode, unspecified F32.9 [facility] [address] [facility] [id number] [address] [place] [address] Jan, History of pneumonia Z87.01 and Type 2 diabetes mellitus with hyperglycemia E11.65 [facility] [address] [facility] [id number] [address] [place] [phone] 08 Jan, 2018 [facility] [address] [facility] [id number] [address] [place] [address] Jan, Congestion of respiratory tr act J98.8 [facility] [address] [id number] [address] [place] [id number] Nov, Dental caries K02.9 [facility] [address] [id number] [address] [place] [id number] Nov, Dental examination Z01.20 [facility] [address] [id number] [address] [place] [id number] Oct, Acute oral pain K13.79 [facility] [address] [facility] [id number] [address] [place] [address] Oct, [facility] [address] [facility] [id number] [address] [place] [address] Oct, [facility] [address] [facility] [id number] [address] [place] [address] Oct, Epigastric abdominal pain R1 0.13 ; Type 2 diabetes mellitus with diabetic neuropathy E11.40 ; Mixed hyperlipidemia E78.2 ; Essential hypertension I10 ; Major depressive disorder, single episode, unspecified F32.9 ; Neuropathy G62.9 and Non compliance w medication regimen Z91.14 [facility] [address] [phone] Oct, [facility] [address] [place] [id number] [address] [place] [address] August, [place] [address] [address] August, Type 2 diabetes mellitus wit h diabetic neuropathy E11.40 ; Mixed hyperlipidemia E78.2 ; Essential hypertension I10 ; Acute idiopathic gout involving toe of right foot M10.071 ; Neuropathy G62.9 and Major depressive disorder, single episode, unspecified F32.9 [place] [address] [place] [id number] [address] [place] [address] August, [place] [address] [place] [id number] [address] [place] [id number] Jul, Essential hypertension I10 ; Neuropathy G62.9 and Musculoskeletal pain M79.1 [place] [address] [facility] [id number] [address] [place] [address] May, [place] [address] [place] [id number] [address] [place] [id number] 09 May, 2017 Type 2 diabetes mellitus wit h diabetic neuropathy E11.40 ; 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 ; Essential hypertension I10 ; Mixed hyperlipidemia E78.2 ; Non compliance w medication regimen Z91.14 ; Non compliance with medical treatment Z91.19 ; Injury of right thumb, initial encounter S69.91XA and Major depressive disorder, single episode, unspecified F32.9 [place] [address] [id number] 08 May, 2017 [facility] [address] [address] May, [place] [address] [address] May, Chest pain, unspecified type R07.9 and Type 2 diabetes mellitus with diabetic neuropathy E11.40 [place] [address] [address] May, [place] [address] [address] Feb, Abnormal CBC R79.89 [place] [address] [address] Feb, [place] [address] [address] Jan, Type 2 diabetes mellitus wit h diabetic neuropathy E11.40 ; Mixed hyperlipidemia E78.2 ; Neuropathy G62.9 ; Osteoarthritis, unspecified osteoarthritis type, unspecified site M19.90 ; Acute nonseasonal allergic rhinitis due to pollen J30.1 ; Impotence N52.9 ; Anxiety F41.9 ; Essential hypertension I10 and Non compliance w medication regimen Z91.14 [place] [address] [place] [id number] [address] [place] [address] Oct, [facility] [address] [address] Sep, Type 2 diabetes mellitus wit h diabetic neuropathy E11.40 ; Non compliance w medication regimen Z91.14 ; Non compliance with medical treatment Z91.19 and Foot pain, left M79.672 [place] [address] [place] [id number] [place] [address] Jul, [facility] [address] [facility] [id number] [address] [place] [address] Jul, [facility] [address] [place] [id number] [address] [place] [address] May, Anxiety F41.9 ; Type 2 diabe kang mellitus with diabetic neuropathy E11.40 ; Non compliance w medication regimen Z91.14 ; Mixed hyperlipidemia E78.2 and Essential hypertension I10 [facility] [address] [place] [id number] [address] [place] [address] Apr, Osteoarthritis, unspecified osteoarthritis type, unspecified site M19.90 [place] [address] [place] [id number] [address] [place] [address] Apr, [place] [address] [place] [id number] [place] [address] Apr, Type 2 diabetes mellitus wit h diabetic neuropathy E11.40 ; Non compliance w medication regimen Z91.14 ; Mixed hyperlipidemia E78.2 ; Essential hypertension I10 ; Plantar wart B07.0 and Anxiety F41.9 [place] [address] [place] [id number] [address] [place] [address] Apr, [facility] [address] [place] [id number] [address] [place] [address] Apr, [facility] [address] [place] [id number] [address] [place] [id number] Mar, Osteoarthritis, unspecified osteoarthritis type, unspecified site M19.90 and Impotence N52.9 [facility] [address] [facility] [id number] [address] [place] [address] Mar, [place] [address] [place] [id number] [address] [place] [phone] Mar, Type 2 diabetes mellitus wit h diabetic neuropathy E11.40 ; Anxiety F41.9 and Intractable vomiting with nausea, unspecified vomiting type R11.2 [place] [address] [address] Mar, Type 2 diabetes mellitus wit h diabetic neuropathy E11.40 and Intractable vomiting with nausea, unspecified vomiting type R11.2 [place] [address] [address] Feb, Porokeratosis Q82.8 and Type 2 diabetes mellitus with diabetic neuropathy E11.40 [place] [address] [address] Jan, [place] [address] [address] Dec, [place] [address] [address] Dec, Type 2 diabetes mellitus wit h diabetic neuropathy E11.40 ; Non compliance w medication regimen Z91.14 ; Impotence N52.9 ; Essential hypertension I10 ; Hyperlipidemia E78.5 ; Neuropathy G62.9 ; 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 and Plantar wart B07.0 [place] [address] [address] Dec, [place] [address] [address] Nov, Dental examination Z01.20 [place] [address] [address] Oct, Osteoarthritis, unspecified osteoarthritis type, unspecified site M19.90 ; Type 2 diabetes mellitus with diabetic neuropathy E11.40 ; Impotence N52.9 ; Mixed hyperlipidemia E78.2 ; Hyperlipidemia E78.5 ; Essential hypertension I10 and Plantar wart B07.0 [place] [address] [address] Sep, [place] [address] [address] August, Abnormal thyroid blood test R94.6 [place] [address] [place] [id number] [address] [place] [address] 18 Aug, 2015 Dental examination Z01.20 [place] [address] [address] 17 Aug, 2015 Type 2 diabetes mellitus wit h diabetic neuropathy E11.40 ; Non compliance w medication regimen Z91.14 ; Impotence N52.9 ; Mixed hyperlipidemia E78.2 ; Abscessed tooth K04.7 and Shoulder pain, left M25.512 [place] [address] [place] [id number] [address] [place] [address] 12 May, 2015 Type 2 diabetes mellitus wit h diabetic neuropathy E11.40 ; Non compliance w medication regimen Z91.14 ; Non compliance with medical treatment Z91.19 ; Shoulder pain, left M25.512 ; General medical exam Z00.00 ; Impotence N52.9 and Hyperlipidemia E78.5 [place] [address] [address] Jan, Type 2 diabetes mellitus wit h diabetic neuropathy E11.40 ; Noncompliance w/medication treatment due to intermit use of medication Z91.14 and Impotence N52.9 [place] [address] [place] [id number] [address] [place] [id number] Jan, [place] [address] [place] [id number] [address] [place] [phone] Dec, [place] [id number] [place] [address] Nov, [place] [address] [place] [id number] [address] [place] [address] Nov, [place] [address] [address] Nov, [place] [address] [place] [id number] [address] [place] [address] Nov, Diabetes with neurological m anifestations, type II or unspecified type, not stated as uncontrolled 250.60 ; Hyperlipidemia 272.4 ; Allergic rhinitis, cause unspecified 477.9 and Depression 311 [facility] [address] [id number] [address] [place] [id number] Sep, [facility] [address] [id number] [address] [place] [address] Sep, [facility] [address] [id number] [address] [place] [id number] Sep, [facility] [address] [id number] [address] [place] [address] Sep, Depression 311 and Diabetes type 2, uncontrolled 250.02 [facility] [address] [id number] [address] [place] [address] August, [facility] [address] [id number] [address] [place] [phone] Jul, [facility] [address] [id number] [address] [place] [address] Jul, [facility] [address] [id number] [address] [place] [address] Apr, [facility] [address] [id number] [address] [place] [address] Apr, [facility] [address] [id number] [address] [place] [phone] Apr, [facility] [address] [id number] [address] [place] [id number] Apr, [facility] [address] [id number] [address] [place] [phone] Jan, [facility] [address] [id number] [address] [place] [id number] Jan, [facility] [address] [id number] [address] [place] [address] Nov, [facility] [address] [id number] [address] [place] [address] Nov, [facility] [address] [id number] [facility] [place] [address] Nov, [facility] [address] [id number] [address] [place] [address], [place] [address] Nov, [facility] [address] [id number] [address] [place] [address], [place] [address] Nov, [facility] [address] [id number] [address] [place] [address], [place] [address] Nov, [facility] [address] [id number] [address] [place] [address], [place] [address] Nov, [facility] [address] [id number] [address] [place] [address], [place] [address] Nov, [facility] [address] [id number] [address] [place] [address], [place] [address] August, [facility] [address] [id number] [address] [place] [address], [place] [address] August, [facility] [address] [id number] [address] [place] [address], [place] [address] August, [facility] [address] [id number] [address] [place] [address], [place] [address] August, [facility] [address] [id number] [address] [place] [address], [place] [address] August, [facility] [address] [id number] [address] [place] [address], [place] [address] May, [facility] [address] [id number] [address] [place] [address], [place] [address] May, [facility] [address] [id number] [address] [place] [address], [place] [address] May, [facility] [address] [id number] [address] [place] [address], [place] [address] May, [facility] [address] [id number] [address] [place] [address], [place] [address] Apr, [facility] [address] [id number] [address] [place] [address], [place] [address] Apr, [facility] [address] [id number] [address] [place] [address], [place] [address] Jan, [facility] [address] [id number] [address] [place] [address], [place] [address] Jan, [facility] [address] [id number] [address] [place] [address], [place] [address] Jan, [facility] [address] [id number] [address] [place] [address], [place] [address] Jan, [facility] [address] [id number] [address] [place] [address], [place] [address] Jan, [facility] [address] [id number] [address] [place] [address], [place] [address] Dec, [facility] [address] [id number] [address] [place] [address], [place] [address] Dec, [facility] [address] [id number] [address] [place] [address], [place] [address] Dec, [facility] [address] [id number] [address] [place] [address], [place] [address] Dec, [facility] [address] [id number] [address] [place] [address], [place] [address] Dec, [facility] [address] [id number] [address] [place] [address], [place] [address] Nov, [facility] [address] [id number] [address] [place] [address], [place] [address] Nov, [facility] [address] [id number] [address] [place] [address], [place] [address] Nov, [facility] [address] [id number] [address] [place] [address], [place] [address] Nov, [facility] [address] [facility] [id number] [address] [place] [address] Nov, [facility] [address] [facility] [id number] [address] [place] [address] Nov, IMMUNIZATIONS No Known Immunizations SOCIAL HISTORY [...] History No Surgical history information Hospitalization History [facility]- dx'd w/ D M 2008 Hospitalization History WENT TO ER FOR COLD S/S 09/07/14 Hospitalization History HTN, went to ER May 18, 2017 Hospitalization History pneumonia/sepsis 01/11-08/2017
--- OUTSIDE RECORDS SUMMARY | 2019-09-16 15:04 | XMS REPORT ---
Author Author Tony Roblero Doctor Organization [facility] Address Unknown Phone Unavailable Care Team Providers Care Lathe Scalper Operator Name Role Phone Migration, Doctor Unavailable Unavailable PROBLEMS Type Condition ICD9-CM Code [id number] Code Onset Dates Condition S tatus SNOMED Code Problem Impotence N52.9 Active 198266143 Problem Mixed hyperlipidemia E78.2 Active 703886320 Problem Osteoarthritis, unspecified osteoarthritis type, unspecified site M19.90 Active 214130166 Problem Abnormal CBC R79.89 Active 7376475 06 Problem Major depressive disorder, single episode, unspecified F32.9 Active 73709945 Problem Non compliance with medical treatment Z91.19 Active 8214463 Problem Acute idiopathic gout involving toe of right foot M10.071 Active 88589004 Problem Type 2 diabetes mellitus with diabetic neuropathy E11.40 Active 4740455923484 Problem Essential hypertension I10 Active 79456408 Problem Neuropathy G62.9 Active 001230770 Problem Anxiety F41.9 Active 41193483 Problem Acute nonseasonal allergic rhinitis due to pollen J30.1 Active 42738087 ALLERGIES No Information ENCOUNTERS Encounter Location Date Diagnosis [place] [id number] [place] [address] May, [facility] [address] [address] May, Type 2 diabetes mellitus with diabetic n europathy E11.40 [facility] [id number] [place] [address] May, Bronchitis [address] [place] [address] [place] [address] May, [facility] [address] [address] May, Increased urinary frequency R35.0 and Ty pe 2 diabetes mellitus with diabetic neuropathy E11.40 [place] [address] [place] [address] Apr, [facility] [address] [address] Mar, Trochanteric bursitis of right hip M70.6 1 and Type 2 diabetes mellitus with diabetic neuropathy E11.40 [facility] [address] [facility] [id number] [place] [address] Feb, Right knee pain, unspecified chronicity M25.561 [facility] [address] [address] Jan, Bronchitis J40 [facility] [address] [address] Oct, Type 2 diabetes mellitus with diabetic n europathy E11.40 ; Essential hypertension I10 and Major depressive disorder, single episode, unspecified F32.9 [place] [address] [address] Sep, Type 2 diabetes mellitus with diabetic n europathy E11.40 [facility] [address] [address] August, Essential hypertension I10 [facility] [address] [address] Jul, Major depressive disorder, single episod e, unspecified F32.9 [facility] [address] [address] Jun, Bronchitis J40 [facility] [address] [address] May, Mixed hyperlipidemia E78.2 [facility] [address] [address] Feb, Major depressive disorder, single episod e, unspecified F32.9 [facility] [address] [address] Feb, Major depressive disorder, single episod e, unspecified F32.9 [facility] [address] [address] 12 Jan, 2018 History of pneumonia Z87.01 and Type 2 d iabetes mellitus with hyperglycemia E11.65 [place] [address] [address] 08 Jan, 2018 [facility] [place] [id number] [place] [address] 02 Jan, 2018 Congestion of respiratory tr act J98.8 [facility] [address] [id number] Nov, Dental caries K02.9 [facility] [address] [place] [id number] Nov, Dental examination Z01.20 [facility] [address] [place] [id number] Oct, Acute oral pain K13.[address] [address] Oct, [place] [address] [address] Oct, [address] [address] Oct, Epigastric abdominal pain R10.13 ; Type 2 diabetes mellitus with diabetic neuropathy E11.40 ; Mixed hyperlipidemia E78.2 ; Essential hypertension I10 ; Major depressive disorder, single episode, unspecified F32.9 ; Neuropathy G62.9 and Non compliance w medication regimen Z91.14 [facility] [address] [place] [id number] [address] [place] [address] Oct, [facility] [address] [address] August, [address] [address] August, Type 2 diabetes mellitus with diabetic n europathy E11.40 ; Mixed hyperlipidemia E78.2 ; Essential hypertension I10 ; Acute idiopathic gout involving toe of right foot M10.071 ; Neuropathy G62.9 and Major depressive disorder, single episode, unspecified F32.9 [place] [address] [address] August, [place] [address] [address] Jul, Essential hypertension I10 ; Neuropathy G62.9 and Musculoskeletal pain M79.1 [place] [address] [address] 14 May, 2017 [place] [address] [address] 09 May, 2017 Type 2 diabetes mellitus with diabetic n europathy E11.40 ; retirement (current) use of insulin Z79.4 ; Essential hypertension I10 ; Mixed hyperlipidemia E78.2 ; Non compliance w medication regimen Z91.14 ; Non compliance with medical treatment Z91.19 ; Injury of right thumb, initial encounter S69.91XA and Major depressive disorder, single episode, unspecified F32.9 [place] [address] [address] 08 May, 2017 [place] [address] [address] May, [place] [address] [address] 06 May, 2017 Chest pain, unspecified type R07.9 and T ype 2 diabetes mellitus with diabetic neuropathy E11.40 [place] [address] [address] May, [place] [address] [address] Feb, Abnormal CBC R79.89 [place] [address] [address] Feb, [place] [address] [address] Jan, Type 2 diabetes mellitus with diabetic n europathy E11.40 ; Mixed hyperlipidemia E78.2 ; Neuropathy G62.9 ; Osteoarthritis, unspecified osteoarthritis type, unspecified site M19.90 ; Acute nonseasonal allergic rhinitis due to pollen J30.1 ; Impotence N52.9 ; Anxiety F41.9 ; Essential hypertension I10 and Non compliance w medication regimen Z91.14 [facility] [address] [address] Oct, [facility] [address] [facility] [id number] [address] [place] [address] Sep, Type 2 diabetes mellitus wit h diabetic neuropathy E11.40 ; Non compliance w medication regimen Z91.14 ; Non compliance with medical treatment Z91.19 and Foot pain, left M79.672 [place] [address] [address] Jul, [place] [address] [address] Jul, [place] [address] [address] May, Anxiety F41.9 ; Type 2 diabetes mellitus with diabetic neuropathy E11.40 ; Non compliance w medication regimen Z91.14 ; Mixed hyperlipidemia E78.2 and Essential hypertension I10 [place] [address] [address] Apr, Osteoarthritis, unspecified osteoarthrit is type, unspecified site M19.90 [place] [address] [address] Apr, [place] [address] [address] Apr, Type 2 diabetes mellitus with diabetic n europathy E11.40 ; Non compliance w medication regimen Z91.14 ; Mixed hyperlipidemia E78.2 ; Essential hypertension I10 ; Plantar wart B07.0 and Anxiety F41.9 [place] [address] [address] Apr, [place] [address] [address] Apr, [place] [address] [address] Mar, Osteoarthritis, unspecified osteoarthrit is type, unspecified site M19.90 and Impotence N52.9 [place] [address] [address] Mar, [place] [address] [address] Mar, Type 2 diabetes mellitus with diabetic n europathy E11.40 ; Anxiety F41.9 and Intractable vomiting with nausea, unspecified vomiting type R11.2 [place] [address] [address] Mar, Type 2 diabetes mellitus with diabetic n europathy E11.40 and Intractable vomiting with nausea, unspecified vomiting type R11.2 [place] [address] [address] Feb, Porokeratosis Q82.8 and Type 2 diabetes mellitus with diabetic neuropathy E11.40 [place] [address] [address] Jan, [place] [address] [address] Dec, [place] [address] [address] Dec, Type 2 diabetes mellitus with diabetic n europathy E11.40 ; Non compliance w medication regimen Z91.14 ; Impotence N52.9 ; Essential hypertension I10 ; Hyperlipidemia E78.5 ; Neuropathy G62.9 ; 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 and Plantar wart B07.0 [place] [address] [address] Dec, [place] [address] [address] Nov, Dental examination Z01.[address] [address] Oct, Osteoarthritis, unspecified osteoarthrit is type, unspecified site M19.90 ; Type 2 diabetes mellitus with diabetic neuropathy E11.40 ; Impotence N52.9 ; Mixed hyperlipidemia E78.2 ; Hyperlipidemia E78.5 ; Essential hypertension I10 and Plantar wart B07.[address] [address] Sep, [address] [address] August, Abnormal thyroid blood test R94.[address] [address] August, Dental examination Z01.[address] [address] 17 Aug, 2015 Type 2 diabetes mellitus with diabetic n europathy E11.40 ; Non compliance w medication regimen Z91.14 ; Impotence N52.9 ; Mixed hyperlipidemia E78.2 ; Abscessed tooth K04.7 and Shoulder pain, left M25.[address] [address] May, Type 2 diabetes mellitus with diabetic n europathy E11.40 ; Non compliance w medication regimen Z91.14 ; Non compliance with medical treatment Z91.19 ; Shoulder pain, left M25.512 ; General medical exam Z00.00 ; Impotence N52.9 and Hyperlipidemia E78.[address] [address] Jan, Type 2 diabetes mellitus with diabetic n europathy E11.40 ; Noncompliance w/medication treatment due to intermit use of medication Z91.14 and Impotence N52.[address] [address] Jan, [address] [address] Dec, [facility] [address] [address] Nov, [facility] [address] [address] Nov, [facility] [address] [address] Nov, [facility] [address] [address] Nov, Diabetes with neurological manifestation s, type II or unspecified type, not stated as uncontrolled 250.60 ; Hyperlipidemia 272.4 ; Allergic rhinitis, cause unspecified 477.9 and Depression 311 [facility] [address] [address] Sep, [facility] [address] [address] Sep, [facility] [address] [address] Sep, [facility] [address] [address] Sep, Depression 311 and Diabetes type 2, unco ntrolled 250.02 [facility] [address] [address] August, [facility] [address] [address] Jul, [facility] [address] [address] Jul, [facility] [address] [address] Apr, [facility] [address] [address] Apr, [facility] [address] [address] Apr, [facility] [address] [address] Apr, [facility] [address] [facility] [id number] [place] [address] Jan, [facility] [address] [facility] [id number] [place] [address] Jan, [facility] [address] [id number] [place] [address] Nov, [facility] [address] [id number] [place] [address] Nov, [facility] [address] [facility] [id number] [place] [address] Nov, [facility] [address] [id number] [place] [address] Nov, [facility] [address] [id number] [place] [address] Nov, [facility] [address] [id number] [place] [address] Nov, [facility] [address] [id number] [place] [address] Nov, [facility] [address] [id number] [place] [address] Nov, [facility] [address] [id number] [place] [address] August, [facility] [address] [id number] [place] [address] August, [facility] [address] [id number] [place] [address] August, [facility] [address] [id number] [place] [address] August, [facility] [address] [id number] [place] [address] August, [facility] [address] [id number] [place] [address] May, [facility] [address] [id number] [place] [address] May, [facility] [address] [id number] [place] [address] May, [facility] [address] [id number] [place] [address] May, [facility] [address] [id number] [place] [address] Apr, [facility] [address] [id number] [place] [address] Apr, [facility] [address] [id number] [place] [address] Jan, [facility] [address] [id number] [place] [address] Jan, [facility] [address] [id number] [place] [address] Jan, [facility] [address] [id number] [place] [address] Jan, [facility] [address] [id number] [place] [address] Jan, [facility] [address] [id number] [place] [address] Dec, [facility] [address] [id number] [place] [address] Dec, [facility] [address] [id number] [place] [address] Dec, [facility] [address] [id number] [place] [address] Dec, 2012 [facility] [address] [id number] [place] [address] Dec, 2012 [facility] [address] [id number] [place] [address] Nov, [facility] [address] [id number] [place] [address] Nov, [facility] [address] [id number] [place] [address] Nov, [facility] [address] [id number] [place] [address] Nov, [facility] [address] [id number] [place] [address] Nov, [facility] [address] [id number] [place] [address] Nov, IMMUNIZATIONS No Known Immunizations SOCIAL HISTORY [...] History No Surgical history information Hospitalization History [facility]- dx'd w/ D M 2008 Hospitalization History WENT TO ER FOR COLD S/S 09/07/14 Hospitalization History HTN, went to ER May 18, 2017 Hospitalization History pneumonia/sepsis 01/11-08/2017
--- OUTSIDE RECORDS SUMMARY | 2019-09-16 15:04 | XMS REPORT ---
Author Author Tony Roblero Doctor Organization [facility] Address Unknown Phone Unavailable Care Team Providers Care Senior Nurse Manager Name Role Phone Migration, Doctor Unavailable Unavailable PROBLEMS Type Condition ICD9-CM Code [id number] Code Onset Dates Condition S tatus SNOMED Code Problem Impotence N52.9 Active 043548590 Problem Mixed hyperlipidemia E78.2 Active 333711000 Problem Osteoarthritis, unspecified osteoarthritis type, unspecified site M19.90 Active 624517968 Problem Abnormal CBC R79.89 Active 8689820 06 Problem Major depressive disorder, single episode, unspecified F32.9 Active 72496335 Problem Non compliance with medical treatment Z91.19 Active 2599582 Problem Acute idiopathic gout involving toe of right foot M10.071 Active 70161388 Problem Type 2 diabetes mellitus with diabetic neuropathy E11.40 Active 7895643836141 Problem Essential hypertension I10 Active 78627166 Problem Neuropathy G62.9 Active 750729103 Problem Anxiety F41.9 Active 27184620 Problem Acute nonseasonal allergic rhinitis due to pollen J30.1 Active 98209818 ALLERGIES No Information ENCOUNTERS Encounter Location Date Diagnosis [place] [id number] [place] [address] Jun, [place] [address] [address] May, [place] [address] [address] May, Type 2 diabetes mellitus with diabetic n europathy E11.40 [place] [address] [address] May, Bronchitis J40 [address] [address] [place] [address] May, [facility] [id number] [place] [address] May, Increased urinary frequency R35.0 and Ty pe 2 diabetes mellitus with diabetic neuropathy E11.40 [facility] [address] [address] Apr, [place] [address] [address] Mar, Trochanteric bursitis of right hip M70.6 1 and Type 2 diabetes mellitus with diabetic neuropathy E11.40 [facility] [address] [facility] [id number] [place] [address] Feb, Right knee pain, unspecified chronicity M25.561 [place] [address] [address] Jan, Bronchitis J40 [place] [address] [address] Oct, Type 2 diabetes mellitus with diabetic n europathy E11.40 ; Essential hypertension I10 and Major depressive disorder, single episode, unspecified F32.9 [place] [address] [address] Sep, Type 2 diabetes mellitus with diabetic n europathy E11.40 [place] [address] [address] August, Essential hypertension I10 [place] [address] [address] Jul, Major depressive disorder, single episod e, unspecified F32.9 [place] [address] [address] Jun, Bronchitis J40 [place] [address] [address] May, Mixed hyperlipidemia E78.2 [place] [address] [address] Feb, Major depressive disorder, single episod e, unspecified F32.9 [place] [address] [address] Feb, Major depressive disorder, single episod e, unspecified F32.9 [facility] [address] [address] Jan, History of pneumonia Z87.01 and Type 2 d iabetes mellitus with hyperglycemia E11.65 [place] [address] [address] Jan, [facility] [address] [place] [address] Jan, Congestion of respiratory tr act J98.8 [facility] [address] [id number] Nov, Dental caries K02.9 [facility] [address] [id number] Nov, Dental examination Z01.20 [facility] [address] [id number] Oct, Acute oral pain K13.79 [place] [address] [address] Oct, [place] [address] [address] Oct, [place] [address] [address] Oct, Epigastric abdominal pain R10.13 ; Type 2 diabetes mellitus with diabetic neuropathy E11.40 ; Mixed hyperlipidemia E78.2 ; Essential hypertension I10 ; Major depressive disorder, single episode, unspecified F32.9 ; Neuropathy G62.9 and Non compliance w medication regimen Z91.14 [facility] [address] [place] [id number] [place] [address] Oct, [facility] [address] [place] [id number] [place] [address] August, [place] [address] [address] August, Type 2 diabetes mellitus with diabetic n europathy E11.40 ; Mixed hyperlipidemia E78.2 ; Essential hypertension I10 ; Acute idiopathic gout involving toe of right foot M10.071 ; Neuropathy G62.9 and Major depressive disorder, single episode, unspecified F32.9 [place] [address] [address] August, [place] [address] [address] Jul, Essential hypertension I10 ; Neuropathy G62.9 and Musculoskeletal pain M79.1 [place] [address] [address] 14 May, 2017 [place] [address] [address] 09 May, 2017 Type 2 diabetes mellitus with diabetic n europathy E11.40 ; [facility] (current) use of insulin Z79.4 ; Essential hypertension I10 ; Mixed hyperlipidemia E78.2 ; Non compliance w medication regimen Z91.14 ; Non compliance with medical treatment Z91.19 ; Injury of right thumb, initial encounter S69.91XA and Major depressive disorder, single episode, unspecified F32.9 [place] [address] [address] 08 May, 2017 [place] [address] [address] 07 May, 2017 [place] [address] [address] May, Chest pain, unspecified type R07.9 and T ype 2 diabetes mellitus with diabetic neuropathy E11.40 [place] [address] [address] May, [place] [address] [address] Feb, Abnormal CBC R79.89 [place] [address] [address] Feb, [place] [address] [address] Jan, Type 2 diabetes mellitus with diabetic n europathy E11.40 ; Mixed hyperlipidemia E78.2 ; Neuropathy G62.9 ; Osteoarthritis, unspecified osteoarthritis type, unspecified site M19.90 ; Acute nonseasonal allergic rhinitis due to pollen J30.1 ; Impotence N52.9 ; Anxiety F41.9 ; Essential hypertension I10 and Non compliance w medication regimen Z91.14 [facility] [address] [address] Oct, [facility] [address] [facility] [id number] [address] [place] [address] Sep, Type 2 diabetes mellitus wit h diabetic neuropathy E11.40 ; Non compliance w medication regimen Z91.14 ; Non compliance with medical treatment Z91.19 and Foot pain, left M79.672 [place] [address] [address] Jul, [facility] [address] [address] Jul, [place] [address] [address] May, Anxiety F41.9 ; Type 2 diabetes mellitus with diabetic neuropathy E11.40 ; Non compliance w medication regimen Z91.14 ; Mixed hyperlipidemia E78.2 and Essential hypertension I10 [facility] [address] [address] Apr, Osteoarthritis, unspecified osteoarthrit is type, unspecified site M19.90 [place] [address] [address] Apr, [place] [address] [address] Apr, Type 2 diabetes mellitus with diabetic n europathy E11.40 ; Non compliance w medication regimen Z91.14 ; Mixed hyperlipidemia E78.2 ; Essential hypertension I10 ; Plantar wart B07.0 and Anxiety F41.9 [place] [address] [address] Apr, [place] [address] [address] Apr, [place] [address] [address] Mar, Osteoarthritis, unspecified osteoarthrit is type, unspecified site M19.90 and Impotence N52.9 [place] [address] [address] Mar, [place] [address] [address] Mar, Type 2 diabetes mellitus with diabetic n europathy E11.40 ; Anxiety F41.9 and Intractable vomiting with nausea, unspecified vomiting type R11.2 [place] [address] [address] Mar, Type 2 diabetes mellitus with diabetic n europathy E11.40 and Intractable vomiting with nausea, unspecified vomiting type R11.2 [place] [address] [address] Feb, Porokeratosis Q82.8 and Type 2 diabetes mellitus with diabetic neuropathy E11.40 [place] [address] [address] Jan, [place] [address] [address] Dec, [place] [address] [address] Dec, Type 2 diabetes mellitus with diabetic n europathy E11.40 ; Non compliance w medication regimen Z91.14 ; Impotence N52.9 ; Essential hypertension I10 ; Hyperlipidemia E78.5 ; Neuropathy G62.9 ; 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 and Plantar wart B07.0 [place] [address] [address] Dec, [place] [address] [address] Nov, Dental examination Z01.20 [place] [address] [address] Oct, Osteoarthritis, unspecified osteoarthrit is type, unspecified site M19.90 ; Type 2 diabetes mellitus with diabetic neuropathy E11.40 ; Impotence N52.9 ; Mixed hyperlipidemia E78.2 ; Hyperlipidemia E78.5 ; Essential hypertension I10 and Plantar wart B07.0 [place] [address] [address] Sep, [address] [address] August, Abnormal thyroid blood test R94.[address] [address] August, Dental examination Z01.20 [place] [address] [address] August, Type 2 diabetes mellitus with diabetic n europathy E11.40 ; Non compliance w medication regimen Z91.14 ; Impotence N52.9 ; Mixed hyperlipidemia E78.2 ; Abscessed tooth K04.7 and Shoulder pain, left M25.[address] [address] May, Type 2 diabetes mellitus with diabetic n europathy E11.40 ; Non compliance w medication regimen Z91.14 ; Non compliance with medical treatment Z91.19 ; Shoulder pain, left M25.512 ; General medical exam Z00.00 ; Impotence N52.9 and Hyperlipidemia E78.[address] [address] Jan, Type 2 diabetes mellitus with diabetic n europathy E11.40 ; Noncompliance w/medication treatment due to intermit use of medication Z91.14 and Impotence N52.[address] [address] Jan, [facility] [id number] [place] [address] Dec, [facility] [address] [address] Nov, [facility] [address] [address] Nov, [facility] [address] [address] Nov, [facility] [address] [address] Nov, Diabetes with neurological manifestation s, type II or unspecified type, not stated as uncontrolled 250.60 ; Hyperlipidemia 272.4 ; Allergic rhinitis, cause unspecified 477.9 and Depression 311 [facility] [address] [address] Sep, [facility] [address] [address] Sep, [facility] [address] [address] Sep, [facility] [address] [address] Sep, Depression 311 and Diabetes type 2, unco ntrolled 250.02 [facility] [address] [address] August, [facility] [address] [address] Jul, [facility] [address] [address] Jul, [facility] [address] [address] Apr, [facility] [address] [address] Apr, [facility] [address] [address] Apr, [facility] [address] [facility] [id number] [place] [address] Apr, [facility] [address] [facility] [id number] [place] [address] Jan, [facility] [address] [facility] [id number] [place] [address] Jan, [facility] [address] [id number] [place] [address] Nov, [facility] [address] [facility] [id number] [place] [address] Nov, [facility] [address] [id number] [place] [address] Nov, [facility] [address] [id number] [place] [address] Nov, [facility] [address] [id number] [place] [address] Nov, [facility] [address] [id number] [place] [address] Nov, [facility] [address] [id number] [place] [address] Nov, [facility] [address] [id number] [place] [address] Nov, [facility] [address] [id number] [place] [address] August, [facility] [address] [facility] [id number] [place] [address] August, [facility] [address] [id number] [place] [address] August, [facility] [address] [id number] [place] [address] August, [facility] [address] [id number] [place] [address] August, [facility] [address] [id number] [place] [address] May, [facility] [address] [id number] [place] [address] May, [facility] [address] [id number] [place] [address] May, [facility] [address] [id number] [place] [address] May, [facility] [address] [id number] [place] [address] Apr, [facility] [address] [id number] [place] [address] Apr, [facility] [address] [id number] [place] [address] Jan, [facility] [address] [id number] [place] [address] Jan, [facility] [address] [id number] [place] [address] Jan, [facility] [address] [id number] [place] [address] Jan, [facility] [address] [id number] [place] [address] Jan, [facility] [address] [id number] [place] [address] Dec, [facility] [address] [id number] [place] [address] 30 Dec, 2012 [facility] [address] [id number] [place] [address] Dec, 2012 [facility] [id number] [place] [address] Dec, 2012 [facility] [address] [id number] [place] [address] Dec, 2012 [facility] [address] [id number] [place] [address] Nov, [facility] [address] [id number] [place] [address] Nov, [facility] [address] [id number] [place] [address] Nov, [facility] [address] [id number] [place] [address] Nov, [facility] [address] [id number] [place] [address] Nov, [facility] [address] [id number] [place] [address] Nov, IMMUNIZATIONS No Known Immunizations SOCIAL HISTORY [...] History No Surgical history information Hospitalization History [facility]- dx'd w/ D M 2008 Hospitalization History WENT TO ER FOR COLD S/S 09/07/14 Hospitalization History HTN, went to ER May 18, 2017 Hospitalization History pneumonia/sepsis 01/11-08/2017
--- OUTSIDE RECORDS SUMMARY | 2019-09-16 15:04 | XMS REPORT ---
Author Author Tony Roblero Doctor Organization [facility] Address Unknown Phone Unavailable Care Team Providers Care Platform Man Name Role Phone Migration, Doctor Unavailable Unavailable PROBLEMS Type Condition ICD9-CM Code LHM12-KC Code Onset Dates Condition S tatus SNOMED Code Problem Impotence N52.9 Active 727981709 Problem Mixed hyperlipidemia E78.2 Active 152654952 Problem Osteoarthritis, unspecified osteoarthritis type, unspecified site M19.90 Active 681110254 Problem Abnormal CBC R79.89 Active 0733549 06 Problem Major depressive disorder, single episode, unspecified F32.9 Active 48346063 Problem Non compliance with medical treatment Z91.19 Active 0795673 Problem Acute idiopathic gout involving toe of right foot M10.071 Active 28277367 Problem Type 2 diabetes mellitus with diabetic neuropathy E11.40 Active 1885398374587 Problem Essential hypertension I10 Active 70398948 Problem Neuropathy G62.9 Active 663528865 Problem Anxiety F41.9 Active 94215401 Problem Acute nonseasonal allergic rhinitis due to pollen J30.1 Active 86282116 ALLERGIES No Information ENCOUNTERS Encounter Location Date Diagnosis [facility] [address] [address] Apr, [facility] [address] [address] Mar, Trochanteric bursitis of right hip M70.6 1 and Type 2 diabetes mellitus with diabetic neuropathy E11.40 [facility] [address] [facility] [id number] [address] [place] [address] Feb, Right knee pain, unspecified chronicity M25.561 [facility] [address] [id number] [place] [address] Jan, Bronchitis J40 [facility] [address] [address] Oct, Type 2 diabetes mellitus with diabetic n europathy E11.40 ; Essential hypertension I10 and Major depressive disorder, single episode, unspecified F32.9 [facility] [address] [address] Sep, Type 2 diabetes mellitus with diabetic n europathy E11.40 [facility] [address] [address] August, Essential hypertension I10 [facility] [address] [address] Jul, Major depressive disorder, single episod e, unspecified F32.9 [facility] [address] [address] Jun, Bronchitis J40 [facility] [address] [address] May, Mixed hyperlipidemia E78.2 [facility] [address] [address] Feb, Major depressive disorder, single episod e, unspecified F32.9 [facility] [address] [address] Feb, Major depressive disorder, single episod e, unspecified F32.9 [facility] [address] [address] Jan, History of pneumonia Z87.01 and Type 2 d iabetes mellitus with hyperglycemia E11.65 [facility] [id number] [place] [address] Jan, [facility] [address] [facility] [id number] [address] [place] [address] Jan, Congestion of respiratory tr act J98.8 [facility] [address] [id number] [place] [id number] Nov, Dental caries K02.9 [facility] [id number] [place] [id number] Nov, Dental examination Z01.20 [facility] [id number] [place] [id number] Oct, Acute oral pain K13.79 [place] [id number] [place] [address] Oct, [place] [address] [address] Oct, [place] [address] [address] Oct, Epigastric abdominal pain R10.13 ; Type 2 diabetes mellitus with diabetic neuropathy E11.40 ; Mixed hyperlipidemia E78.2 ; Essential hypertension I10 ; Major depressive disorder, single episode, unspecified F32.9 ; Neuropathy G62.9 and Non compliance w medication regimen Z91.14 [facility] [address] [place] [id number] [place] [address] Oct, [facility] [address] [address] August, [place] [address] [address] August, Type 2 diabetes mellitus with diabetic n europathy E11.40 ; Mixed hyperlipidemia E78.2 ; Essential hypertension I10 ; Acute idiopathic gout involving toe of right foot M10.071 ; Neuropathy G62.9 and Major depressive disorder, single episode, unspecified F32.9 [place] [address] [address] August, [place] [address] [address] Jul, Essential hypertension I10 ; Neuropathy G62.9 and Musculoskeletal pain M79.1 [place] [address] [address] May, [place] [address] [address] 09 May, 2017 Type 2 diabetes mellitus with diabetic n europathy E11.40 ; 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 ; Essential hypertension I10 ; Mixed hyperlipidemia E78.2 ; Non compliance w medication regimen Z91.14 ; Non compliance with medical treatment Z91.19 ; Injury of right thumb, initial encounter S69.91XA and Major depressive disorder, single episode, unspecified F32.9 [facility] [address] [address] 08 May, 2017 [place] [address] [address] May, [place] [address] [address] May, Chest pain, unspecified type R07.9 and T ype 2 diabetes mellitus with diabetic neuropathy E11.40 [place] [address] [address] May, [place] [address] [address] Feb, Abnormal CBC R79.89 [place] [address] [address] Feb, [place] [address] [address] Jan, Type 2 diabetes mellitus with diabetic n europathy E11.40 ; Mixed hyperlipidemia E78.2 ; Neuropathy G62.9 ; Osteoarthritis, unspecified osteoarthritis type, unspecified site M19.90 ; Acute nonseasonal allergic rhinitis due to pollen J30.1 ; Impotence N52.9 ; Anxiety F41.9 ; Essential hypertension I10 and Non compliance w medication regimen Z91.14 [place] [address] [address] Oct, [facility] [address] [facility] [id number] [address] [place] [address] Sep, Type 2 diabetes mellitus wit h diabetic neuropathy E11.40 ; Non compliance w medication regimen Z91.14 ; Non compliance with medical treatment Z91.19 and Foot pain, left M79.672 [place] [address] [address] Jul, [place] [address] [address] Jul, [place] [address] [address] May, Anxiety F41.9 ; Type 2 diabetes mellitus with diabetic neuropathy E11.40 ; Non compliance w medication regimen Z91.14 ; Mixed hyperlipidemia E78.2 and Essential hypertension I10 [place] [address] [address] Apr, Osteoarthritis, unspecified osteoarthrit is type, unspecified site M19.90 [place] [address] [address] Apr, [place] [address] [address] Apr, Type 2 diabetes mellitus with diabetic n europathy E11.40 ; Non compliance w medication regimen Z91.14 ; Mixed hyperlipidemia E78.2 ; Essential hypertension I10 ; Plantar wart B07.0 and Anxiety F41.9 [place] [address] [address] Apr, [place] [address] [address] Apr, [place] [address] [address] Mar, Osteoarthritis, unspecified osteoarthrit is type, unspecified site M19.90 and Impotence N52.9 [place] [address] [address] Mar, [place] [address] [address] Mar, Type 2 diabetes mellitus with diabetic n europathy E11.40 ; Anxiety F41.9 and Intractable vomiting with nausea, unspecified vomiting type R11.2 [place] [address] [address] Mar, Type 2 diabetes mellitus with diabetic n europathy E11.40 and Intractable vomiting with nausea, unspecified vomiting type R11.2 [place] [address] [address] Feb, Porokeratosis Q82.8 and Type 2 diabetes mellitus with diabetic neuropathy E11.40 [place] [address] [address] Jan, [place] [address] [address] Dec, [place] [address] [address] Dec, Type 2 diabetes mellitus with diabetic n europathy E11.40 ; Non compliance w medication regimen Z91.14 ; Impotence N52.9 ; Essential hypertension I10 ; Hyperlipidemia E78.5 ; Neuropathy G62.9 ; 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 and Plantar wart B07.0 [place] [address] [address] Dec, [place] [address] [address] Nov, Dental examination Z01.20 [place] [address] [address] Oct, Osteoarthritis, unspecified osteoarthrit is type, unspecified site M19.90 ; Type 2 diabetes mellitus with diabetic neuropathy E11.40 ; Impotence N52.9 ; Mixed hyperlipidemia E78.2 ; Hyperlipidemia E78.5 ; Essential hypertension I10 and Plantar wart B07.0 [place] [address] [address] Sep, [address] [address] August, Abnormal thyroid blood test R94.[address] [address] August, Dental examination Z01.20 [place] [address] [address] 17 Aug, 2015 Type 2 diabetes mellitus with diabetic n europathy E11.40 ; Non compliance w medication regimen Z91.14 ; Impotence N52.9 ; Mixed hyperlipidemia E78.2 ; Abscessed tooth K04.7 and Shoulder pain, left M25.512 [place] [address] [address] 12 May, 2015 Type 2 diabetes mellitus with diabetic n europathy E11.40 ; Non compliance w medication regimen Z91.14 ; Non compliance with medical treatment Z91.19 ; Shoulder pain, left M25.512 ; General medical exam Z00.00 ; Impotence N52.9 and Hyperlipidemia E78.5 [place] [address] [address] 22 Jan, 2015 Type 2 diabetes mellitus with diabetic n europathy E11.40 ; Noncompliance w/medication treatment due to intermit use of medication Z91.14 and Impotence N52.9 [place] [address] [address] Jan, [place] [address] [address] Dec, [place] [address] [address] Nov, [place] [address] [address] Nov, [place] [address] [address] Nov, [place] [address] [address] Nov, Diabetes with neurological manifestation s, type II or unspecified type, not stated as uncontrolled 250.60 ; Hyperlipidemia 272.4 ; Allergic rhinitis, cause unspecified 477.9 and Depression 311 [place] [address] [address] Sep, [facility] [address] [id number] [place] [address] Sep, [facility] [address] [id number] [place] [address] Sep, [facility] [address] [id number] [place] [address] Sep, Depression 311 and Diabetes type 2, unco ntrolled 250.02 [facility] [address] [id number] [place] [address] August, [facility] [address] [id number] [place] [address] Jul, [facility] [address] [id number] [place] [address] Jul, [facility] [address] [id number] [place] [address] Apr, [facility] [address] [id number] [place] [address] Apr, [facility] [address] [id number] [place] [address] Apr, [facility] [address] [id number] [place] [address] Apr, [facility] [address] [id number] [place] [address] Jan, [facility] [address] [id number] [place] [id number] Jan, [facility] [address] [id number] [place] [address] Nov, [facility] [address] [id number] [place] [address] Nov, [facility] [address] [id number] [place] [address] Nov, [facility] [address] [id number] [place] [address] Nov, [facility] [address] [id number] [place] [address] Nov, [facility] [address] [id number] [place] [address] Nov, [facility] [address] [id number] [place] [address] Nov, [facility] [address] [id number] [place] [address] Nov, [facility] [address] [id number] [place] [address] August, [facility] [address] [id number] [place] [address] August, [facility] [address] [id number] [place] [address] August, [facility] [address] [id number] [place] [id number] August, [facility] [address] [id number] [place] [address] August, [facility] [address] [id number] [place] [address] May, [facility] [address] [id number] [place] [address] May, [facility] [address] [id number] [place] [address] May, [facility] [address] [id number] [place] [address] May, [facility] [address] [id number] [place] [address] Apr, [facility] [address] [id number] [place] [address] Apr, [facility] [address] [id number] [place] [address] Jan, [facility] [address] [id number] [place] [address] Jan, [facility] [id number] [place] [address] Jan, [facility] [id number] [place] [address] Jan, [facility] [id number] [place] [address] Jan, [facility] [id number] [place] [address] Dec, [facility] [id number] [place] [address] Dec, [facility] [id number] [place] [address] Dec, [facility] [id number] [place] [address] Dec, [facility] [id number] [place] [address] Dec, [facility] [id number] [place] [address] Nov, [facility] [id number] [place] [address] Nov, [facility] [id number] [place] [address] Nov, [facility] [id number] [place] [address] Nov, [facility] [id number] [place] [address] Nov, [facility] [id number] [place] [address] Nov, IMMUNIZATIONS No Known Immunizations SOCIAL HISTORY [...] History No Surgical history information Hospitalization History [facility]- dx'd w/ D M 2008 Hospitalization History WENT TO ER FOR COLD S/S 09/07/14 Hospitalization History HTN, went to ER May 18, 2017 Hospitalization History pneumonia/sepsis 01/11-08/2017
--- OUTSIDE RECORDS SUMMARY | 2019-09-16 15:04 | XMS REPORT ---
Author Author Tony Roblero Doctor Organization [facility] Address Unknown Phone Unavailable Care Team Providers Care Vehicle Glass Technician Name Role Phone Migration, Doctor Unavailable Unavailable PROBLEMS Type Condition ICD9-CM Code XGM12-GP Code Onset Dates Condition S tatus SNOMED Code Problem Impotence N52.9 Active 920379855 Problem Mixed hyperlipidemia E78.2 Active 266606735 Problem Osteoarthritis, unspecified osteoarthritis type, unspecified site M19.90 Active 104069812 Problem Abnormal CBC R79.89 Active 0801374 06 Problem Major depressive disorder, single episode, unspecified F32.9 Active 60632004 Problem Non compliance with medical treatment Z91.19 Active 4515828 Problem Acute idiopathic gout involving toe of right foot M10.071 Active 89618512 Problem Type 2 diabetes mellitus with diabetic neuropathy E11.40 Active 0012082019875 Problem Essential hypertension I10 Active 21885605 Problem Neuropathy G62.9 Active 978180692 Problem Anxiety F41.9 Active 55837200 Problem Acute nonseasonal allergic rhinitis due to pollen J30.1 Active 78913070 ALLERGIES No Information ENCOUNTERS Encounter Location Date Diagnosis [facility] [id number] [place] [address] May, [facility] [id number] [place] [address] Apr, [facility] [id number] [place] [address] Mar, Trochanteric bursitis of right hip M70.6 1 and Type 2 diabetes mellitus with diabetic neuropathy E11.40 [facility] [address] [facility] [id number] [place] [address] Feb, Right knee pain, unspecified chronicity M25.561 [facility] [id number] [place] [address] Jan, Bronchitis J40 [facility] [address] [address] Oct, Type 2 diabetes mellitus with diabetic n europathy E11.40 ; Essential hypertension I10 and Major depressive disorder, single episode, unspecified F32.9 [place] [address] [address] Sep, Type 2 diabetes mellitus with diabetic n europathy E11.40 [place] [address] [address] August, Essential hypertension I10 [place] [address] [address] Jul, Major depressive disorder, single episod e, unspecified F32.9 [place] [address] [address] Jun, Bronchitis J40 [place] [address] [address] May, Mixed hyperlipidemia E78.2 [place] [address] [address] Feb, Major depressive disorder, single episod e, unspecified F32.9 [place] [address] [address] Feb, Major depressive disorder, single episod e, unspecified F32.9 [place] [address] [address] Jan, History of pneumonia Z87.01 and Type 2 d iabetes mellitus with hyperglycemia E11.65 [place] [address] [address] Jan, [facility] [address] [facility] [id number] [address] [place] [address] Jan, Congestion of respiratory tr act J98.8 [facility] [address] [id number] [place] [id number] Nov, Dental caries K02.9 [facility] [address] , [place] [id number] Nov, Dental examination Z01.20 [facility] [address] [id number] Oct, Acute oral pain K13.79 [facility] [address] [address] Oct, [facility] [address] [address] Oct, [place] [address] [address] Oct, Epigastric abdominal pain R10.13 ; Type 2 diabetes mellitus with diabetic neuropathy E11.40 ; Mixed hyperlipidemia E78.2 ; Essential hypertension I10 ; Major depressive disorder, single episode, unspecified F32.9 ; Neuropathy G62.9 and Non compliance w medication regimen Z91.14 [facility] [id number] [place] [address] Oct, [facility] [id number] [place] [address] August, [place] [address] [address] August, Type 2 diabetes mellitus with diabetic n europathy E11.40 ; Mixed hyperlipidemia E78.2 ; Essential hypertension I10 ; Acute idiopathic gout involving toe of right foot M10.071 ; Neuropathy G62.9 and Major depressive disorder, single episode, unspecified F32.9 [place] [address] [address] August, [place] [address] [address] Jul, Essential hypertension I10 ; Neuropathy G62.9 and Musculoskeletal pain M79.1 [facility] [address] [address] May, [place] [address] [address] May, Type 2 diabetes mellitus with diabetic n europathy E11.40 ; skilled nursing (current) use of insulin Z79.4 ; Essential hypertension I10 ; Mixed hyperlipidemia E78.2 ; Non compliance w medication regimen Z91.14 ; Non compliance with medical treatment Z91.19 ; Injury of right thumb, initial encounter S69.91XA and Major depressive disorder, single episode, unspecified F32.9 [place] [address] [address] May, [facility] [address] [address] May, [place] [address] [address] May, Chest pain, unspecified type R07.9 and T ype 2 diabetes mellitus with diabetic neuropathy E11.40 [place] [address] [address] May, [facility] [address] [address] Feb, Abnormal CBC R79.89 [place] [address] [address] Feb, [place] [address] [address] Jan, Type 2 diabetes mellitus with diabetic n europathy E11.40 ; Mixed hyperlipidemia E78.2 ; Neuropathy G62.9 ; Osteoarthritis, unspecified osteoarthritis type, unspecified site M19.90 ; Acute nonseasonal allergic rhinitis due to pollen J30.1 ; Impotence N52.9 ; Anxiety F41.9 ; Essential hypertension I10 and Non compliance w medication regimen Z91.14 [facility] [address] [address] Oct, [facility] [address] [facility] [id number] [address] [place] [address] Sep, Type 2 diabetes mellitus wit h diabetic neuropathy E11.40 ; Non compliance w medication regimen Z91.14 ; Non compliance with medical treatment Z91.19 and Foot pain, left M79.672 [place] [address] [address] Jul, [place] [address] [address] Jul, [place] [address] [address] May, Anxiety F41.9 ; Type 2 diabetes mellitus with diabetic neuropathy E11.40 ; Non compliance w medication regimen Z91.14 ; Mixed hyperlipidemia E78.2 and Essential hypertension I10 [place] [address] [address] Apr, Osteoarthritis, unspecified osteoarthrit is type, unspecified site M19.90 [place] [address] [address] Apr, [place] [address] [address] Apr, Type 2 diabetes mellitus with diabetic n europathy E11.40 ; Non compliance w medication regimen Z91.14 ; Mixed hyperlipidemia E78.2 ; Essential hypertension I10 ; Plantar wart B07.0 and Anxiety F41.9 [place] [address] [address] Apr, [place] [address] [address] Apr, [place] [address] [address] Mar, Osteoarthritis, unspecified osteoarthrit is type, unspecified site M19.90 and Impotence N52.9 [place] [address] [address] Mar, [place] [address] [address] Mar, Type 2 diabetes mellitus with diabetic n europathy E11.40 ; Anxiety F41.9 and Intractable vomiting with nausea, unspecified vomiting type R11.2 [place] [address] [address] Mar, Type 2 diabetes mellitus with diabetic n europathy E11.40 and Intractable vomiting with nausea, unspecified vomiting type R11.2 [place] [address] [address] Feb, Porokeratosis Q82.8 and Type 2 diabetes mellitus with diabetic neuropathy E11.40 [place] [address] [address] Jan, [place] [address] [address] Dec, [place] [address] [address] Dec, Type 2 diabetes mellitus with diabetic n europathy E11.40 ; Non compliance w medication regimen Z91.14 ; Impotence N52.9 ; Essential hypertension I10 ; Hyperlipidemia E78.5 ; Neuropathy G62.9 ; 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6 [place] [address] [address] 18 Aug, 2015 Dental examination Z01.20 [place] [address] [address] 17 Aug, 2015 Type 2 diabetes mellitus with diabetic n europathy E11.40 ; Non compliance w medication regimen Z91.14 ; Impotence N52.9 ; Mixed hyperlipidemia E78.2 ; Abscessed tooth K04.7 and Shoulder pain, left M25.512 [place] [address] [address] 12 May, 2015 Type 2 diabetes mellitus with diabetic n europathy E11.40 ; Non compliance w medication regimen Z91.14 ; Non compliance with medical treatment Z91.19 ; Shoulder pain, left M25.512 ; General medical exam Z00.00 ; Impotence N52.9 and Hyperlipidemia E78.[address] [address] Jan, Type 2 diabetes mellitus with diabetic n europathy E11.40 ; Noncompliance w/medication treatment due to intermit use of medication Z91.14 and Impotence N52.9 [place] [address] [address] Jan, [address] [address] Dec, [place] [address] [address] Nov, [place] [address] [address] Nov, [place] [address] [address] Nov, [address] [address] Nov, Diabetes with neurological manifestation s, type II or unspecified type, not stated as uncontrolled 250.60 ; Hyperlipidemia 272.4 ; Allergic rhinitis, cause unspecified 477.9 and Depression 311 [facility] [id number] [place] [address] Sep, [facility] [id number] [place] [address] Sep, [facility] [address] [id number] [place] [address] Sep, [facility] [id number] [place] [address] Sep, Depression 311 and Diabetes type 2, unco ntrolled 250.02 [facility] [id number] [place] [address] August, [facility] [id number] [place] [address] Jul, [facility] [id number] [place] [address] Jul, [facility] [id number] [place] [address] Apr, [facility] [id number] [place] [address] Apr, [facility] [id number] [place] [address] Apr, [facility] [id number] [place] [address] Apr, [facility] [id number] [place] [address] Jan, [facility] [id number] [place] [address] Jan, [facility] [id number] [place] [address] Nov, [facility] [id number] [place] [address] Nov, [facility] [id number] [place] [address] Nov, [facility] [address] [id number] [place] [address] Nov, [facility] [address] [id number] [place] [address] Nov, [facility] [address] [id number] [place] [address] Nov, [facility] [address] [id number] [place] [address] Nov, [facility] [address] [id number] [place] [address] Nov, [facility] [address] [id number] [place] [address] August, [facility] [address] [id number] [place] [address] August, [facility] [address] [id number] [place] [address] August, [facility] [address] [id number] [place] [address] August, [facility] [address] [id number] [place] [address] August, [facility] [address] [id number] [place] [address] May, [facility] [address] [id number] [place] [address] May, [facility] [address] [id number] [place] [address] May, [facility] [address] [id number] [place] [address] May, [facility] [address] [id number] [place] [address] Apr, [facility] [address] [id number] [place] [address] Apr, [facility] [address] [id number] [place] [address] Jan, [facility] [address] [id number] [place] [address] Jan, [facility] [address] [id number] [place] [address] Jan, [facility] [address] [id number] [place] [address] Jan, [facility] [id number] [place] [address] Jan, [facility] [address] [id number] [place] [address] Dec, [facility] [id number] [place] [address] Dec, [facility] [id number] [place] [address] Dec, [facility] [id number] [place] [address] Dec, [facility] [id number] [place] [address] Dec, [facility] [id number] [place] [address] Nov, [facility] [id number] [place] [address] Nov, [facility] [id number] [place] [address] Nov, [facility] [id number] [place] [address] Nov, [facility] [id number] [place] [address] Nov, [facility] [id number] [place] [address] Nov, IMMUNIZATIONS No Known Immunizations SOCIAL HISTORY Never Assessed REASON FOR VISIT PLAN OF CARE VITAL SIGNS Height 68 in 2013-08-28 Weight 156.5 lbs 2013-08-28 Temperature 98.6 degrees Fahrenheit 2013-08-28 Heart Rate 84 bpm 2013-08-28 Respiratory Rate 16 2013-08-28 Blood pressure systolic 118 mmHg 2013-08-28 Blood pressure diastolic 82 mmHg 2013-08-28 MEDICATIONS Unknown Medications RESULTS No Results PROCEDURES Procedure Date Ordered Result Body Site FOOT EXAM PERFORMED August 28, 2013 GLYCATED HEMOGLOBIN TEST August 28, 2013 INSTRUCTIONS MEDICATIONS ADMINISTERED No Known Medications MEDICAL (GENERAL) HISTORY Type Description Date Medical History DM Medical History Depression Medical History Diabetic Neuropathy Medical History Allergies Medical History Porokeratosis Medical History Plantar wart Medical History 05/2017- Negative exercise stress test Dr Perdomo Medical History pneumonia/sepsis Surgical History No Surgical history information Hospitalization History [facility]- dx'd w/ D M 2008 Hospitalization History WENT TO ER FOR COLD S/S 09/07/14 Hospitalization History HTN, went to ER May 18, 2017 Hospitalization History pneumonia/sepsis 01/11-08/2017
--- OUTSIDE RECORDS SUMMARY | 2019-09-16 15:04 | XMS REPORT ---
Author Author Tony Roblero Doctor Organization [facility] Address Unknown Phone Unavailable Care Team Providers Care Hammersmith Helper Name Role Phone Migration, Doctor Unavailable Unavailable PROBLEMS Type Condition ICD9-CM Code QGB86-AG Code Onset Dates Condition S tatus SNOMED Code Problem Impotence N52.9 Active 252546494 Problem Mixed hyperlipidemia E78.2 Active 147826498 Problem Osteoarthritis, unspecified osteoarthritis type, unspecified site M19.90 Active 307638283 Problem Abnormal CBC R79.89 Active 5650488 06 Problem Major depressive disorder, single episode, unspecified F32.9 Active 83890121 Problem Non compliance with medical treatment Z91.19 Active 9854483 Problem Acute idiopathic gout involving toe of right foot M10.071 Active 66244235 Problem Type 2 diabetes mellitus with diabetic neuropathy E11.40 Active 6727927876202 Problem Essential hypertension I10 Active 55969760 Problem Neuropathy G62.9 Active 413628521 Problem Anxiety F41.9 Active 69448737 Problem Acute nonseasonal allergic rhinitis due to pollen J30.1 Active 14462673 ALLERGIES No Information ENCOUNTERS Encounter Location Date Diagnosis [place] [id number] [place] [address] Jun, [place] [address] [address] May, [place] [address] [address] May, Type 2 diabetes mellitus with diabetic n europathy E11.40 [place] [address] [address] May, Bronchitis [address] [address] [place] [address] May, [facility] [id number] [place] [address] May, Increased urinary frequency R35.0 and Ty pe 2 diabetes mellitus with diabetic neuropathy E11.40 [facility] [address] [address] Apr, [place] [address] [address] Mar, Trochanteric bursitis of right hip M70.6 1 and Type 2 diabetes mellitus with diabetic neuropathy E11.40 [facility] [address] [facility] [id number] [address] [place] [address] Feb, Right knee pain, unspecified chronicity M25.561 [place] [address] [address] Jan, Bronchitis J40 [place] [address] [address] Oct, Type 2 diabetes mellitus with diabetic n europathy E11.40 ; Essential hypertension I10 and Major depressive disorder, single episode, unspecified F32.9 [place] [address] [address] Sep, Type 2 diabetes mellitus with diabetic n europathy E11.40 [place] [address] [address] August, Essential hypertension I10 [place] [address] [address] Jul, Major depressive disorder, single episod e, unspecified F32.9 [place] [address] [address] Jun, Bronchitis J40 [place] [address] [address] May, Mixed hyperlipidemia E78.2 [place] [address] [address] Feb, Major depressive disorder, single episod e, unspecified F32.9 [place] [address] [address] Feb, Major depressive disorder, single episod e, unspecified F32.9 [facility] [address] [address] Jan, History of pneumonia Z87.01 and Type 2 d iabetes mellitus with hyperglycemia E11.65 [place] [address] [address] Jan, [facility] [address] [place] [address] Jan, Congestion of respiratory tr act J98.8 [facility] [address] [id number] Nov, Dental caries K02.9 [facility] [address] [id number] Nov, Dental examination Z01.20 [facility] [address] [id number] Oct, Acute oral pain K13.79 [place] [address] [address] Oct, [place] [address] [address] Oct, [place] [address] [address] Oct, Epigastric abdominal pain R10.13 ; Type 2 diabetes mellitus with diabetic neuropathy E11.40 ; Mixed hyperlipidemia E78.2 ; Essential hypertension I10 ; Major depressive disorder, single episode, unspecified F32.9 ; Neuropathy G62.9 and Non compliance w medication regimen Z91.14 [facility] [id number] [place] [address] Oct, [facility] [id number] [place] [address] August, [place] [address] [address] August, Type 2 diabetes mellitus with diabetic n europathy E11.40 ; Mixed hyperlipidemia E78.2 ; Essential hypertension I10 ; Acute idiopathic gout involving toe of right foot M10.071 ; Neuropathy G62.9 and Major depressive disorder, single episode, unspecified F32.9 [place] [address] [address] August, [place] [address] [address] Jul, Essential hypertension I10 ; Neuropathy G62.9 and Musculoskeletal pain M79.1 [place] [address] [address] 14 May, 2017 [place] [address] [address] 09 May, 2017 Type 2 diabetes mellitus with diabetic n europathy E11.40 ; alf (current) use of insulin Z79.4 ; Essential hypertension I10 ; Mixed hyperlipidemia E78.2 ; Non compliance w medication regimen Z91.14 ; Non compliance with medical treatment Z91.19 ; Injury of right thumb, initial encounter S69.91XA and Major depressive disorder, single episode, unspecified F32.9 [place] [address] [address] 08 May, 2017 [place] [address] [address] 07 May, 2017 [place] [address] [address] May, Chest pain, unspecified type R07.9 and T ype 2 diabetes mellitus with diabetic neuropathy E11.40 [place] [address] [address] May, [place] [address] [address] Feb, Abnormal CBC R79.89 [place] [address] [address] Feb, [place] [address] [address] Jan, Type 2 diabetes mellitus with diabetic n europathy E11.40 ; Mixed hyperlipidemia E78.2 ; Neuropathy G62.9 ; Osteoarthritis, unspecified osteoarthritis type, unspecified site M19.90 ; Acute nonseasonal allergic rhinitis due to pollen J30.1 ; Impotence N52.9 ; Anxiety F41.9 ; Essential hypertension I10 and Non compliance w medication regimen Z91.14 [facility] [address] [address] Oct, [facility] [address] [facility] [id number] [address] [place] [address] Sep, Type 2 diabetes mellitus wit h diabetic neuropathy E11.40 ; Non compliance w medication regimen Z91.14 ; Non compliance with medical treatment Z91.19 and Foot pain, left M79.672 [place] [address] [address] Jul, [facility] [address] [address] Jul, [place] [address] [address] May, Anxiety F41.9 ; Type 2 diabetes mellitus with diabetic neuropathy E11.40 ; Non compliance w medication regimen Z91.14 ; Mixed hyperlipidemia E78.2 and Essential hypertension I10 [facility] [address] [address] Apr, Osteoarthritis, unspecified osteoarthrit is type, unspecified site M19.90 [place] [address] [address] Apr, [place] [address] [address] Apr, Type 2 diabetes mellitus with diabetic n europathy E11.40 ; Non compliance w medication regimen Z91.14 ; Mixed hyperlipidemia E78.2 ; Essential hypertension I10 ; Plantar wart B07.0 and Anxiety F41.9 [place] [address] [address] Apr, [place] [address] [address] Apr, [place] [address] [address] Mar, Osteoarthritis, unspecified osteoarthrit is type, unspecified site M19.90 and Impotence N52.9 [place] [address] [address] Mar, [place] [address] [address] Mar, Type 2 diabetes mellitus with diabetic n europathy E11.40 ; Anxiety F41.9 and Intractable vomiting with nausea, unspecified vomiting type R11.2 [place] [address] [address] Mar, Type 2 diabetes mellitus with diabetic n europathy E11.40 and Intractable vomiting with nausea, unspecified vomiting type R11.2 [place] [address] [address] Feb, Porokeratosis Q82.8 and Type 2 diabetes mellitus with diabetic neuropathy E11.40 [place] [address] [address] Jan, [place] [address] [address] Dec, [place] [address] [address] Dec, Type 2 diabetes mellitus with diabetic n europathy E11.40 ; Non compliance w medication regimen Z91.14 ; Impotence N52.9 ; Essential hypertension I10 ; Hyperlipidemia E78.5 ; Neuropathy G62.9 ; 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 and Plantar wart B07.0 [place] [address] [address] Dec, [place] [address] [address] Nov, Dental examination Z01.20 [place] [address] [address] Oct, Osteoarthritis, unspecified osteoarthrit is type, unspecified site M19.90 ; Type 2 diabetes mellitus with diabetic neuropathy E11.40 ; Impotence N52.9 ; Mixed hyperlipidemia E78.2 ; Hyperlipidemia E78.5 ; Essential hypertension I10 and Plantar wart B07.0 [place] [address] [address] Sep, [address] [address] August, Abnormal thyroid blood test R94.[address] [address] August, Dental examination Z01.20 [place] [address] [address] August, Type 2 diabetes mellitus with diabetic n europathy E11.40 ; Non compliance w medication regimen Z91.14 ; Impotence N52.9 ; Mixed hyperlipidemia E78.2 ; Abscessed tooth K04.7 and Shoulder pain, left M25.[address] [address] May, Type 2 diabetes mellitus with diabetic n europathy E11.40 ; Non compliance w medication regimen Z91.14 ; Non compliance with medical treatment Z91.19 ; Shoulder pain, left M25.512 ; General medical exam Z00.00 ; Impotence N52.9 and Hyperlipidemia E78.[address] [address] Jan, Type 2 diabetes mellitus with diabetic n europathy E11.40 ; Noncompliance w/medication treatment due to intermit use of medication Z91.14 and Impotence N52.[address] [address] Jan, [facility] [id number] [place] [address] Dec, [facility] [address] [address] Nov, [facility] [address] [address] Nov, [facility] [address] [address] Nov, [facility] [address] [address] Nov, Diabetes with neurological manifestation s, type II or unspecified type, not stated as uncontrolled 250.60 ; Hyperlipidemia 272.4 ; Allergic rhinitis, cause unspecified 477.9 and Depression 311 [facility] [address] [address] Sep, [facility] [address] [address] Sep, [facility] [address] [address] Sep, [facility] [address] [address] Sep, Depression 311 and Diabetes type 2, unco ntrolled 250.02 [facility] [address] [address] August, [facility] [address] [address] Jul, [facility] [address] [address] Jul, [facility] [address] [address] Apr, [facility] [address] [address] Apr, [facility] [address] [address] Apr, [facility] [address] [facility] [id number] [place] [address] Apr, [facility] [address] [facility] [id number] [place] [address] Jan, [facility] [address] [facility] [id number] [place] [address] Jan, [facility] [address] [id number] [place] [address] Nov, [facility] [address] [facility] [id number] [place] [address] Nov, [facility] [address] [id number] [place] [address] Nov, [facility] [address] [id number] [place] [address] Nov, [facility] [address] [id number] [place] [address] Nov, [facility] [address] [id number] [place] [address] Nov, [facility] [address] [id number] [place] [address] Nov, [facility] [address] [id number] [place] [address] Nov, [facility] [address] [id number] [place] [address] August, [facility] [address] [facility] [id number] [place] [address] August, [facility] [address] [id number] [place] [address] August, [facility] [address] [id number] [place] [address] August, [facility] [address] [id number] [place] [address] August, [facility] [address] [id number] [place] [address] May, [facility] [address] [id number] [place] [address] May, [facility] [address] [id number] [place] [address] May, [facility] [address] [id number] [place] [address] May, [facility] [address] [id number] [place] [address] Apr, [facility] [address] [id number] [place] [address] Apr, [facility] [address] [id number] [place] [address] Jan, [facility] [address] [id number] [place] [address] Jan, [facility] [address] [id number] [place] [address] Jan, [facility] [address] [id number] [place] [address] Jan, [facility] [address] [id number] [place] [address] Jan, [facility] [address] [id number] [place] [address] Dec, [facility] [address] [id number] [place] [address] 30 Dec, 2012 [facility] [address] [id number] [place] [address] Dec, 2012 [facility] [id number] [place] [address] Dec, 2012 [facility] [address] [id number] [place] [address] Dec, 2012 [facility] [address] [id number] [place] [address] Nov, [facility] [address] [id number] [place] [address] Nov, [facility] [address] [id number] [place] [address] Nov, [facility] [address] [id number] [place] [address] Nov, [facility] [address] [id number] [place] [address] Nov, [facility] [address] [id number] [place] [address] Nov, IMMUNIZATIONS No Known Immunizations SOCIAL HISTORY [...] History No Surgical history information Hospitalization History [facility]- dx'd w/ D M 2008 Hospitalization History WENT TO ER FOR COLD S/S 09/07/14 Hospitalization History HTN, went to ER May 18, 2017 Hospitalization History pneumonia/sepsis 01/11-08/2017
--- OUTSIDE RECORDS SUMMARY | 2019-09-16 15:08 | XMS REPORT | Continuity of Care Document ---
Author Organization Unknown Address Unknown Phone Unavailable Allergies Active Description Code Type Severity Reaction Onset Reported/Identified Relationship to Patient Clinical Status Yes lisinopril 5 mg tablet Drug Allergy N/A N/A 01/09/2013 Yes No Known Drug Allergies [id number] Drug Allergy Unknown N/A 02/04/2013 Medications There is no data. Problems Date Dx Coded Attending Type Code Diagnosis Diagnosed By 11/23/2012 250.02 FRAN BETES MELLITUS WITHOUT MENTION OF COMPLICATION TYPE II OR UNSPECIFIED TYPE UNCONTROLLED 11/23/2012 719.41 OLVIN N IN JOINT INVOLVING SHOULDER REGION 11/23/2012 RAD [...] PAIN IN JOINT INVOLVING SHOULDER REGION 11/23/2012 ELA COLESJULI 250.02 DIABETES MELLITUS WITHOUT MENTION OF COM PLICATION TYPE II OR UNSPECIFIED TYPE UNCONTROLLED 11/23/2012 [...] INVOLVING SHOULDER REGION 02/04/2013 GUSTAVO SUAREZ, ANABEL Perales Ot 787. 02 NAUSEA ALONE 02/04/2013 GUSTAVO SUAREZ, ANABEL Perales Ot 789. 00 ABDOMINAL PAIN, UNSPECIFIED SITE 02/06/2013 CASTRO DO, [...] 787.01 NAUSEA WITH VOMITING 02/06/2013 CASTRO DO, RDA K 787.91 DIARRHEA 02/06/2013 CASTRO DO, RAD [...] DDS, JULI D 250.60 DIABETES WITH NEUROLOGICAL MANIFESTATION S TYPE II OR UNSPECIFIED TYPE NOT STATED UNCONTROLLED 08/28/2013 WHITE DDS, JULI D 36 8.8 OTHER SPECIFIED VISUAL DISTURBANCES 08/28/2013 WHITE DDS, JULI D 47 7.9 RHINITIS 08/28/2013 WHITE DDS, JULI D 783.21 LOSS OF WEIGHT 08/28/2013 CASTRO DO, RAD K 250.60 DIABETES WITH NEUROLOGICAL MANIFESTATIONS TYPE II OR UNSPECIFIED TYPE NOT STATED UNCONTROLLED 08/28/2013 CASTRO DO, RAD K 368.8 OTHER SPECIFIED VISUAL DISTURBANCES 08/28/2013 CASTRO DO, RAD K 477.9 RHINITIS 08/28/2013 CASTRO DO, RAD K 783.21 LOSS OF WEIGHT 08/28/2013 ACSTRO DO, RAD K 250.60 DIABETES WITH NEUROLOGICAL [...] RAD K 477.9 RHINITIS 08/28/2013 CASTRO DO, RDA K 783.21 LOSS OF WEIGHT 08/28/2013 CASTRO DO, RAD K 250.60 DIABETES WITH NEUROLOGICAL MANIFESTATIONS TYPE II OR UNSPECIFIED TYPE NOT STATED UNCONTROLLED 08/28/2013 CASTRO DO, RAD K 368.8 OTHER SPECIFIED VISUAL DISTURBANCES 08/28/2013 CASTRO DO, RAD K 477.9 RHINITIS 08/28/2013 CASTRO DO, RAD K 783.21 LOSS OF WEIGHT 12/05/2013 RAD CASTRO DO V58.69 HIGH RISK MEDICATION 12/05/2013 CASTRO RAD GUERIN V58.69 HIGH RISK MEDICATION 12/05/2013 CASTRO RAD GUERIN V58.69 HIGH RISK MEDICATION 12/05/2013 CASTRO RAD GUERIN V58.69 HIGH RISK MEDICATION 02/05/2014 RAD CASTRO DO 709.9 UNSPECIFIED DISORDER OF SKIN AND SUBCUTANEOUS TISSUE 02/05/2014 RAD CASTRO DO V15.81 PERSONAL HISTORY OF NONCOMPLIANCE WITH MEDICAL TREATMENT PRESENTING HAZARDS TO HEALTH 02/05/2014 RAD CASTRO DO 709.9 UNSPECIFIED DISORDER OF SKIN AND SUBCUTANEOUS TISSUE 02/05/2014 RAD CASTRO DO V15.81 PERSONAL HISTORY OF NONCOMPLIANCE WITH MEDICAL TREATMENT PRESENTING HAZARDS TO HEALTH 02/05/2014 RAD CASTRO DO 709.9 UNSPECIFIED DISORDER OF SKIN AND SUBCUTANEOUS TISSUE 02/05/2014 RAD CASTRO DO V15.81 PERSONAL HISTORY OF NONCOMPLIANCE WITH MEDICAL TREATMENT PRESENTING HAZARDS TO HEALTH 05/04/2014 RAD CASTRO DO 007.0 BALANTIDIASIS 05/04/2014 RAD CASTRO DO 007.0 BALANTIDIASIS 09/07/2014 JULES TORRES Ot 250.02 DIAB MIRACLE WO COMPL, TYPE II OR UNSPEC TY 09/07/2014 JULES TORRES Ot 4 62 ACUTE PHARYNGITIS 09/07/2014 JULES TORRES Ot 465.9 ACUTE URI NOS 09/23/2014 KATHY CRAIN APRN Ot 250.00 DIAB MIRACLE WO COMPL, TYPE II OR UNSPEC TY 09/23/2014 KATHY CRAIN APRN Ot 272 .0 PURE HYPERCHOLESTEROLEM 09/23/2014 KATHY CRAIN APRN Ot 401 .9 HYPERTENSION NOS 09/23/2014 KATHY CRAIN APRN Ot 883 .0 OPEN WOUND OF FINGER 09/23/2014 KATHY CRAIN APRN Ot E000.8 OTHER EXTERNAL CAUSE STATUS 09/23/2014 KATHY CRAIN APRN Ot E906.0 DOG BITE 09/23/2014 KATHY CRAIN APRN Ot V06 .1 [id number], COMBINED [ 09/23/2014 KATHY CRAIN APRN Ot V58.67 LONG-TERM (CURRENT) USE OF INSULIN 04/06/2016 JENNIFER GRAJEDA MD Ot E11.65 TYPE 2 DIABETES MELLITUS WITH HYPERGLYCE 04/06/2016 JENNIFER GRAJEDA MD, Ot F17.210 NICOTINE DEPENDENCE, CIGARETTES, UNCOMPL 04/06/2016 JENNIFER GRAJEDA MD Ot I10 ESSENTIAL (PRIMARY) HYPERTENSION 04/06/2016 JENNIFER GRAJEDA MD Ot R10.12 LEFT UPPER QUADRANT PAIN 04/06/2016 JENNIFER GRAJEDA MD, Ot Z79.4 POWDER BLENDER AND POURER (CURRENT) USE OF INSULIN 04/06/2016 JENNIFER GRAJEDA MD, Ot Z79.84 POWDER BLENDER AND POURER (CURRENT) USE OF ORAL HYPOGLYC 04/06/2016 JENNIFER GRAJEDA MD, Ot Z79.899 OTHER POWDER BLENDER AND POURER (CURRENT) DRUG THERAPY 07/21/2016 BLANQUITA HEMPHILL MD Ot E11.9 TYPE 2 DIABETES MELLITUS WITHOUT COMPLIC 07/21/2016 BLANQUITA HEMPHILL MD Ot F17.210 NICOTINE DEPENDENCE, CIGARETTES, UNCOMPL 07/21/2016 [...] STATUS 07/21/2016 BLANQUITA HEMPHILL MD Ot Z79.4 FPC (CURRENT) USE OF INSULIN 07/21/2016 BLANQUITA HEMPHILL MD Ot Z79.84 FPC (CURRENT) USE OF ORAL HYPOGLYC 07/22/2016 BLANQUITA HEMPHILL MD Ot E11.9 TYPE 2 DIABETES MELLITUS WITHOUT COMPLIC 07/22/2016 BLANQUITA HEMPHILL MD Ot F17.210 NICOTINE DEPENDENCE, CIGARETTES, UNCOMPL 07/22/2016 BLANQUITA HEMPHILL MD Ot I10 ESSENTIAL (PRIMARY) HYPERTENSION 07/22/2016 BLANQUITA HEMPHILL MD Ot S19.9XXA UNSPECIFIED INJURY OF NECK, INITIAL ENCO 07/22/2016 BLANQUITA HEMPHILL MD Ot S39.92XA UNSPECIFIED INJURY OF LOWER BACK, INITIA 07/22/2016 BLANQUITA HEMPHILL MD Ot W17.89XA OTHER FALL FROM ONE LEVEL TO ANOTHER, IN 07/22/2016 BLANQUITA HEMPHILL MD, Ot W20.8XXA OTH CAUSE OF STRIKE BY THROWN, PROJECTED 07/22/2016 BLANQUITA HEMPHILL MD Ot Y99.8 OTHER EXTERNAL CAUSE STATUS 07/22/2016 BLANQUITA HEMPHILL MD Ot Z79.4 POWDER BLENDER AND POURER (CURRENT) USE OF INSULIN 07/22/2016 BLANQUITA HEMPHILL MD Ot Z79.84 FPC (CURRENT) USE OF ORAL HYPOGLYC 01/05/2017 MICHEL CHAVEZ MD Ot B07. 0 PLANTAR WART 01/05/2017 MICHEL CHAVEZ MD Ot E11. 9 TYPE 2 DIABETES MELLITUS WITHOUT COMPLIC 01/05/2017 MICHEL CHAVEZ MD Ot E78. 00 PURE HYPERCHOLESTEROLEMIA, UNSPECIFIED 01/05/2017 MICHEL CHAVEZ MD Ot I10 ESSENTIAL (PRIMARY) HYPERTENSION 01/05/2017 MICHEL CHAVEZ MD Ot J45.909 UNSPECIFIED ASTHMA, UNCOMPLICATED 01/05/2017 MICHEL CHAVEZ MD Ot M79.672 PAIN IN LEFT FOOT 01/05/2017 MICHEL CHAVEZ MD Ot Z77. 22 CNTCT W AND EXPSR TO ENVIRON TOBACCO SMO 01/05/2017 MICHEL CHAVEZ MD Ot Z79. 4 POWDER BLENDER AND POURER (CURRENT) USE OF INSULIN 01/05/2017 MICHEL CHAVEZ MD Ot Z79. 84 FPC (CURRENT) USE OF ORAL HYPOGLYC 05/18/2017 REENA GUERIN DAMION K Ot E11.40 TYPE 2 DIABETES MELLITUS WITH DIABETIC N 05/18/2017 LANIE VALLES DOA K Ot F17.210 NICOTINE DEPENDENCE, CIGARETTES, UNCOMPL 05/18/2017 REENA DO, DAMION K Ot I10 ESSENTIAL (PRIMARY) HYPERTENSION 05/18/2017 REENA DO, DAMION K Ot J45.909 UNSPECIFIED ASTHMA, UNCOMPLICATED 05/18/2017 REENA DO, DAMION K Ot R07.9 CHEST PAIN, UNSPECIFIED 05/18/2017 REENA DO, DAMION K Ot Z79.4 FPC (CURRENT) USE OF INSULIN 05/20/2017 REENA DO, [...] 05/20/2017 REENA DO, DAMION K Ot Z79.4 FPC (CURRENT) USE OF INSULIN 05/28/2017 PATSY SUAREZ, SARAH Perales Ot R07 .9 CHEST PAIN, UNSPECIFIED 06/12/2017 SARAH GARNER MD Ot R07 .9 CHEST PAIN, UNSPECIFIED 06/12/2017 SCOTT SUAREZ, MICHEL Solis Ot E11. 40 TYPE 2 DIABETES MELLITUS WITH DIABETIC N 06/12/2017 MICHEL CHAVEZ MD Ot E11. 65 TYPE 2 DIABETES MELLITUS WITH HYPERGLYCE 06/12/2017 SCOTT SUAREZ, MICHEL Solis Ot E78. 00 PURE HYPERCHOLESTEROLEMIA, UNSPECIFIED 06/12/2017 SCOTT SUAREZ, MICHEL Solis Ot F10.129 ALCOHOL ABUSE WITH INTOXICATION, UNSPECI 06/12/2017 SCOTT SUAREZ, MICHEL Solis Ot F17.210 NICOTINE DEPENDENCE, CIGARETTES, UNCOMPL 06/12/2017 SCOTT SUAREZ, MICHEL Solis Ot I10 ESSENTIAL (PRIMARY) HYPERTENSION 06/12/2017 SCOTT SUAREZ, MICHEL Solis Ot J45.909 UNSPECIFIED ASTHMA, UNCOMPLICATED 06/12/2017 SCOTT SUAREZ, MICHEL Solis Ot M25.512 PAIN IN LEFT SHOULDER 06/12/2017 MICHEL CHAVEZ MD Ot R07. 81 PLEURODYNIA 06/12/2017 MICHEL CHAVEZ MD Ot T14.8XXA OTHER INJURY OF UNSPECIFIED BODY REGION, 06/12/2017 MICHEL CHAVEZ MD Ot V53.5XXA MERCHANDISE PRESENTATION MANAGER OF PK-UP/VAN INJ PK-UP TRUCK, PK- 06/12/2017 MICHEL CHAVEZ MD Ot Z79. 84 FPC (CURRENT) USE OF ORAL HYPOGLYC 06/12/2017 SARAH GARNER MD Ot R07 .9 CHEST PAIN, UNSPECIFIED 06/14/2017 MICHEL CHAVEZ MD Ot E11. 40 TYPE 2 DIABETES MELLITUS WITH DIABETIC N 06/14/2017 MICHEL CHAVEZ MD Ot E11. 65 TYPE 2 DIABETES MELLITUS WITH HYPERGLYCE 06/14/2017 MICHEL CHAVEZ MD Ot E78. 00 PURE HYPERCHOLESTEROLEMIA, UNSPECIFIED 06/14/2017 MICHEL CHAVEZ MD Ot F10.129 ALCOHOL ABUSE WITH INTOXICATION, UNSPECI 06/14/2017 MICHEL CHAVEZ MD Ot F17.210 NICOTINE DEPENDENCE, CIGARETTES, UNCOMPL 06/14/2017 MICHEL CHAVEZ MD Ot I10 ESSENTIAL (PRIMARY) HYPERTENSION 06/14/2017 MICHEL CHAVEZ MD Ot J45.909 UNSPECIFIED ASTHMA, UNCOMPLICATED 06/14/2017 MICHEL CHAVEZ MD Ot M25.512 PAIN IN LEFT SHOULDER 06/14/2017 MICHEL CHAVEZ MD Ot R07. 81 PLEURODYNIA 06/14/2017 MICHEL CHAVEZ MD Ot T14.8XXA OTHER INJURY OF UNSPECIFIED BODY REGION, 06/14/2017 MICHEL CHAVEZ MD Ot V53.5XXA MERCHANDISE PRESENTATION MANAGER OF PK-UP/VAN INJ PK-UP TRUCK, PK- 06/14/2017 MICHEL CHAVEZ MD Ot Z79. 84 POWDER BLENDER AND POURER (CURRENT) USE OF ORAL HYPOGLYC 06/19/2017 MICHEL CHAVEZ MD Ot E11. 40 TYPE 2 DIABETES MELLITUS WITH DIABETIC N 06/19/2017 MICHEL CHAVEZ MD Ot E11. 65 TYPE 2 DIABETES MELLITUS WITH HYPERGLYCE 06/19/2017 MICHEL CHAVEZ MD Ot E78. 00 PURE HYPERCHOLESTEROLEMIA, UNSPECIFIED 06/19/2017 MICHEL CHAVEZ MD Ot F10.129 ALCOHOL ABUSE WITH INTOXICATION, UNSPECI 06/19/2017 MICHEL CHAVEZ MD Ot F17.210 NICOTINE DEPENDENCE, CIGARETTES, UNCOMPL 06/19/2017 MICHEL CHAVEZ MD Ot I10 ESSENTIAL (PRIMARY) HYPERTENSION 06/19/2017 SCOTT SUAREZ, MICHEL Solis Ot J45.909 UNSPECIFIED ASTHMA, UNCOMPLICATED 06/19/2017 SCOTT SUAREZ, MICHEL Solis Ot M25.512 PAIN IN LEFT SHOULDER 06/19/2017 SCOTT SUAREZ, MICHEL Solis Ot R07. 81 PLEURODYNIA 06/19/2017 SCOTT SUAREZ, MICHEL Solis Ot T14.8XXA OTHER INJURY OF UNSPECIFIED BODY REGION, 06/19/2017 SCOTT SUAREZ, MICHEL Solis Ot V53.5XXA MERCHANDISE PRESENTATION MANAGER OF PK-UP/VAN INJ PK-UP TRUCK, PK- 06/19/2017 SCOTT SUAREZ, MICHEL Solis Ot Z79. 84 FPC (CURRENT) USE OF ORAL HYPOGLYC 01/14/2018 RAQUEL LARSEN DO Ot A41.9 SEPSIS, UNSPECIFIED ORGANISM 01/14/2018 RAQUEL LARSEN DO Ot E11.42 TYPE 2 DIABETES MELLITUS WITH DIABETIC P 01/14/2018 RAQUEL LARSEN DO Ot E78.00 PURE HYPERCHOLESTEROLEMIA, UNSPECIFIED 01/14/2018 RAQUEL LARSEN DO Ot F17.210 NICOTINE DEPENDENCE, CIGARETTES, UNCOMPL 01/14/2018 RAQUEL LARSEN DO Ot I10 ESSENTIAL (PRIMARY) HYPERTENSION 01/14/2018 RAQUEL LARSEN DO Ot J18.9 PNEUMONIA, UNSPECIFIED ORGANISM 01/14/2018 RAQUEL LARSEN DO Ot J45.909 UNSPECIFIED ASTHMA, UNCOMPLICATED 01/14/2018 RAQUEL LARSEN DO Ot R65.21 SEVERE SEPSIS WITH SEPTIC SHOCK 01/14/2018 RAQUEL LARSEN DO Ot A41.9 SEPSIS, UNSPECIFIED ORGANISM 01/14/2018 RAQUEL LARSEN DO Ot D64.9 ANEMIA, UNSPECIFIED 01/14/2018 RAQUEL LARSEN DO Ot E11.42 TYPE 2 DIABETES MELLITUS WITH DIABETIC P 01/14/2018 RAQUEL LARSEN DO Ot E78.00 PURE HYPERCHOLESTEROLEMIA, UNSPECIFIED 01/14/2018 RAQUEL LARSEN DO Ot E83.39 OTHER DISORDERS OF PHOSPHORUS METABOLISM 01/14/2018 RAQUEL LARSEN DO Ot E83.42 HYPOMAGNESEMIA 01/14/2018 [facility] DO RAQUEL E Ot E87.2 ACIDOSIS 01/14/2018 [facility] [place] [facility] Ot F17.210 NICOTINE DEPENDENCE, CIGARETTES, UNCOMPL 01/14/2018 [facility] GUERIN RAQUEL E Ot F32.9 MAJOR DEPRESSIVE DISORDER, SINGLE EPISOD 01/14/2018 TGOmar GUERINRAQUEL Ot F41.9 ANXIETY DISORDER, UNSPECIFIED 01/14/2018 [facility] RAQUEL E Ot I10 ESSENTIAL (PRIMARY) HYPERTENSION 01/14/2018 [facility] RAQUEL E Ot J18.1 LOBAR PNEUMONIA, UNSPECIFIED ORGANISM 01/14/2018 [facility] DO RAQUEL E Ot J45.909 UNSPECIFIED ASTHMA, UNCOMPLICATED 01/14/2018 [facility] RAQUEL E Ot N28.9 DISORDER OF KIDNEY AND URETER, UNSPECIFI 01/14/2018 TGOmar GUERIN RAQUEL E Ot R65.21 SEVERE SEPSIS WITH SEPTIC SHOCK 01/14/2018 [facility] RAQUEL E Ot Z23 ENCOUNTER FOR IMMUNIZATION 01/14/2018 TGOmar GUERIN RAQUEL E Ot Z91.19 PATIENT'S NONCOMPLIANCE W OT MEDICAL TR 01/31/2018 PATSY SUAREZ, SARAH Perales Ot R07 .9 CHEST PAIN, UNSPECIFIED 01/31/2018 PATSY SUAREZ, SARAH Perales Ot R07 .9 CHEST PAIN, UNSPECIFIED 01/15/[address] Ot E78.00 PURE HYPERCHOLESTEROLEMIA, UNSPECIFIED 01/15/2019 [facility] ALNE Ot F17.210 NICOTINE DEPENDENCE, CIGARETTES, UNCOMPL 01/15/2019 [facility] LANEP Ot I10 ESSENTIAL (PRIMARY) HYPERTENSION 01/15/2019 [facility] LNAE Ot J06.9 ACUTE UPPER RESPIRATORY INFECTION, UNSPE 01/15/[address] Ot J45.909 UNSPECIFIED ASTHMA, UNCOMPLICATED 01/15/[address] Ot R09.89 [facility] SYMPTOMS AND SIGNS INVOLVING THE CIR 01/15/[address] Ot Z79.4 POWDER BLENDER AND POURER (CURRENT) USE OF INSULIN 01/15/2019 DOMINGO, WESLY AUTOMOTIVE MANAGER Ot Z79.52 POWDER BLENDER AND POURER (CURRENT) USE OF SYSTEMIC STER 01/16/2019 PATSY SUAREZ, SARAH Perales Ot R07 .9 CHEST PAIN, UNSPECIFIED 01/20/2019 DOMINGO, WESLY AUTOMOTIVE MANAGER Ot E78.00 PURE HYPERCHOLESTEROLEMIA, UNSPECIFIED 01/20/2019 DOMINGO, WESLY AUTOMOTIVE MANAGER Ot F17.210 NICOTINE DEPENDENCE, CIGARETTES, UNCOMPL 01/20/2019 DOMINGO, WESLY AUTOMOTIVE MANAGER Ot I10 ESSENTIAL (PRIMARY) HYPERTENSION 01/20/2019 DOMINGO, WESLY AUTOMOTIVE MANAGER Ot J06.9 ACUTE UPPER RESPIRATORY INFECTION, UNSPE 01/20/2019 DOMINGO, WESLY AUTOMOTIVE MANAGER Ot J45.909 UNSPECIFIED ASTHMA, UNCOMPLICATED 01/20/2019 DOMINGO, WESLY AUTOMOTIVE MANAGER Ot R09.89 OTH SYMPTOMS AND SIGNS INVOLVING THE CIR 01/20/2019 DOMINGO, WESLY AUTOMOTIVE MANAGER Ot Z79.4 POWDER BLENDER AND POURER (CURRENT) USE OF INSULIN 01/20/2019 DOMINGO, WESLY AUTOMOTIVE MANAGER Ot Z79.52 FPC (CURRENT) USE OF SYSTEMIC STER 01/21/2019 SARAH GARNER MD Ot R07 .9 CHEST PAIN, UNSPECIFIED 03/29/2019 DOMINGO, WESLY AUTOMOTIVE MANAGER Ot E11.40 TYPE 2 DIABETES MELLITUS WITH DIABETIC N 03/29/2019 DOMINGO, WESLY AUTOMOTIVE MANAGER Ot E78.00 PURE HYPERCHOLESTEROLEMIA, UNSPECIFIED 03/29/2019 DOMINGO, WESLY AUTOMOTIVE MANAGER Ot F17.210 NICOTINE DEPENDENCE, CIGARETTES, UNCOMPL 03/29/2019 DOMINGO, WESLY AUTOMOTIVE MANAGER Ot I10 ESSENTIAL (PRIMARY) HYPERTENSION 03/29/2019 DOMINGO, WESLY AUTOMOTIVE MANAGER Ot J45.909 UNSPECIFIED ASTHMA, UNCOMPLICATED 03/29/2019 DOMINGO, WESLY AUTOMOTIVE MANAGER Ot M25.551 PAIN IN RIGHT HIP 03/29/2019 DOMINGO, WESLY AUTOMOTIVE MANAGER Ot M70.61 TROCHANTERIC BURSITIS, RIGHT HIP 03/29/2019 DOMINGO, WESLY AUTOMOTIVE MANAGER Ot X50.0XXA OVEREXERTION FROM STRENUOUS MOVEMENT OR 03/29/2019 DOMINGO, WESLY AUTOMOTIVE MANAGER Ot Z79.4 FPC (CURRENT) USE OF INSULIN 03/29/2019 DOMINGO, WESLY AUTOMOTIVE MANAGER Ot Z79.52 POWDER BLENDER AND POURER (CURRENT) USE OF SYSTEMIC STER Procedures Code Description [place] [address] ROUT INE VENIPUNCTURE 11/23/2012 87756 A1C (IN-HOUSE) 11/23/2012 62156 CMP 11/23/[id number] GF R CALC (RESULT ONLY) 11/23/2012 79204 ROUT INE VENIPUNCTURE 12/08/2012 74052 LIPI D PANEL 12/08/201223126 JOIN T INJECTION- LARGE JOINT (SPECIFY MEDCIN DESCRIPTION) 01/09 OPHTHALMDANIELLE ROSENBERG 01/09/2013 90690 MICR O ALBUMIN-IN HOUSE 01/09/2013 33412 MICR OALBUMIN 01/09/2013 ORTHOPEDI TAMMI CABRERA 02/06/2013 18905 EYE EXAM PERFORMED 08/28/2013 37520 A1C (IN-HOUSE) 08/28/2013 FOOT EXAM PERFORMED 08/31/2013 01725 A1C (IN-HOUSE) 12/05/2013 55309 WART DESTRUCT 1-14 (CRYO) 02/05/2014 FOOT EXAM PERFORMED 02/05/2014 OPHTHALMDANIELLE ROSENBERG 07/26/2014 76159 A1C (IN-HOUSE) 07/26/2014 65852 MICR O ALBUMIN-IN HOUSE 07/26/2014 02343 MICR OALBUMIN 07/26/2014 Results Test Result Range Complete blood count (CBC) with automate d white blood cell (WBC) differential - 04/06/16 20:22 Blood leukocytes automated count (number/volume) 5.2 10*3/uL 4.3-11.0 Blood erythrocytes automated count (number/volume) 3.63 10*6/uL 4.35-5.85 Venous blood hemoglobin measurement (mass/volume) 13.3 g/dL 13.3-17.7 Blood hematocrit (volume fraction) 37 % 40-54 Automated erythrocyte mean corpuscular volume 102 [foz_us] 80-99 Automated erythrocyte mean corpuscular h emoglobin (mass per erythrocyte) 37 pg 25-34 Automated erythrocyte mean corpuscular h emoglobin concentration measurement (mass/volume) 36 g/dL 32-36 Automated erythrocyte distribution width ratio 11. 5 % 10.0- 14.5 Automated blood platelet count (count/volume) 199 10*3/uL [...] 10*3 1.0-4.0 Blood monocytes automated count (number/volume) 0. 4 10*3 0.0-1.0 Automated eosinophil count 0.0 10*3/uL 0 .0-0.3 Automated blood basophil count (count/volume) 0.0 10*3/uL 0.0-0.1 Comprehensive metabolic panel - 04/06/16 20:22 Serum or plasma sodium measurement (moles/volume) 134 mmol/L 135-145 Serum or plasma potassium measurement (moles/volume) 4.0 mmol/L 3.6-5.0 Serum or plasma chloride measurement (moles/volume) 97 mmol/L 98-107 Carbon dioxide 19 mmol/L 21-32 Serum or plasma anion gap determination (moles/volume) 18 mmol/L 5-14 Serum or plasma urea nitrogen measurement (mass/volume ) 21 mg/dL 7-18 Serum or plasma creatinine measurement (mass/volume) 1.51 mg/dL 0.60-1.30 Serum or plasma urea nitrogen/creatinine mass ratio 14 NRG Serum or plasma creatinine measurement w ith calculation of estimated glomerular filtration rate > NRG Serum or plasma glucose measurement (mass/volume) 314 mg/dL 70-105 Serum or plasma calcium measurement (mass/volume) 9.5 mg/dL 8.5-10.1 Serum or plasma total bilirubin measurement (mass/volu me) 0.4 mg/dL 0.1-1.0 Serum or plasma alkaline phosphatase kaylah surement (enzymatic activity/volume) 84 U/L 40-136 Serum or plasma aspartate aminotransfera se measurement (enzymatic activity/volume) 18 U/L 5-34 Serum or plasma alanine aminotransferase measurement (enzymatic activity/volume) 25 U/L 0-55 Serum or plasma protein measurement (mass/volume) 7.4 g/dL 6.4-8.2 Serum or plasma albumin measurement (mass/volume) 4.2 g/dL 3.2-4.5 Magnesium - 04/06/16 20:22 Magnesium 2.1 mg/dL 1.8-2.4 Lipase - 04/06/16 20:22 Lipase 78 U/L 8-78 Capillary blood glucose measurement by g lucometer (mass/volume) - 04/06/16 22:05 Capillary blood glucose measurement by glucometer (mas s/volume) 282 mg/dL 70-110 CBC With Differential/Platelet - 6 17:28 WBC 3.8 x10E3/uL 3.4-10.8 RBC 3.47 x10E6/uL 4.14-5.80 Hemoglobin 12.4 g/dL 12.6-17.7 Hematocrit 35.0 % 37.5-51.0 MCV 101 fL 79-97 MCH 35.7 pg 26.6-33.0 MCHC 35.4 g/dL 31.5-35.7 RDW 12.5 % 12.3-15.4 Platelets 202 x10E3/uL 150-379 Neutrophils 35 % Lymphs 53 % Monocytes 11 % Eos 1 % Basos 0 % Neutrophils (Absolute) 1.3 x10E3/uL 1.4- 7.0 Lymphs (Absolute) 2.1 x10E3/uL 0.7-3.1 Monocytes(Absolute) 0.4 x10E3/uL 0.1-0.9 Eos (Absolute) 0.0 x10E3/uL 0.0-0.4 Baso (Absolute) 0.0 x10E3/uL 0.0-0.2 Immature Granulocytes 0 % Immature Grans (Abs) 0.0 x10E3/uL 0.0-0. 1 Comp. Metabolic Panel (14) - 04/07/16 17 :28 Glucose, Serum 131 mg/dL 65-99 BUN 13 mg/dL 6-24 Creatinine, Serum 0.92 mg/dL 0.76-1.27 eGFR If NonAfricn Am 100 mL/min/1.73 >59 eGFR If Africn Am 116 mL/min/1.73 >5 9 BUN/Creatinine Ratio 14 9-20 Sodium, Serum 143 [...] 7.2 % 4.8-5.6 CBC With Differential/Platelet - 7 11:29 WBC 3.2 x10E3/uL 3.4-10.8 RBC 3.24 [...] % Not Estab. Neutrophils (Absolute) 1.5 x10E3/uL 1.4- 7.0 Lymphs (Absolute) 1.3 x10E3/uL 0.7-3.1 Monocytes(Absolute) 0.4 x10E3/uL 0.1-0.9 Eos (Absolute) 0.1 x10E3/uL 0.0-0.4 Baso (Absolute) 0.0 x10E3/uL 0.0-0.2 Immature Granulocytes 0 % Not Esta b. Immature Grans (Abs) 0.0 x10E3/uL 0.0-0. 1 Comp. Metabolic Panel (14) - 02/04/17 11 :29 Glucose, Serum 299 mg/dL 65-99 BUN 10 mg/dL 6-24 Creatinine, Serum 0.69 mg/dL 0.76-1.27 eGFR If NonAfricn Am 114 mL/min/1.73 >59 eGFR If Africn Am 132 mL/min/1.73 >5 9 BUN/Creatinine Ratio 14 9-20 Sodium, Serum 143 [...] 11:29 Hemoglobin A1c 7.2 % 4.8-5.6 Thyroid [place] Profile - 02/04/17 11:29 TSH 1.470 uIU/mL 0.450-4.500 Complete blood count (CBC) with automate d white blood cell (WBC) differential - 05/18/17 14:47 Blood leukocytes automated count (number/volume) 3.0 10*3/uL 4.3-11.0 Blood erythrocytes automated count (number/volume) 3.28 10*6/uL 4.35-5.85 Venous blood hemoglobin measurement (mass/volume) 12.3 g/dL 13.3-17.7 Blood hematocrit (volume fraction) 35 % 40-54 Automated erythrocyte mean corpuscular volume 105 [foz_us] 80-99 Automated erythrocyte mean corpuscular h emoglobin (mass per erythrocyte) 38 pg 25-34 Automated erythrocyte mean corpuscular h emoglobin concentration measurement (mass/volume) 36 g/dL 32-36 Automated erythrocyte distribution width ratio 12. 6 % 10.0- 14.5 Automated blood platelet count (count/volume) 173 10*3/uL 130-400 Automated blood platelet mean volume measurement 10.7 [chi [facility]] 7.4-10.4 Automated blood neutrophils/100 leukocytes 33 % 42-75 Automated blood lymphocytes/100 leukocytes 56 % 12-44 Blood monocytes/100 leukocytes 10 % 0-12 Automated blood eosinophils/100 leukocytes 1 % 0-10 Automated blood basophils/100 leukocytes 0 % 0-10 Blood neutrophils automated count (number/volume) 1.0 10*3 1.8-7.8 Blood lymphocytes automated count (number/volume) 1.7 10*3 1.0-4.0 Blood monocytes automated count (number/volume) 0. 3 10*3 0.0-1.0 Automated eosinophil count 0.0 10*3/uL 0 .0-0.3 Automated blood basophil count (count/volume) 0.0 10*3/uL 0.0-0.1 PT panel in platelet poor plasma by coag ulation assay - 05/18/17 14:47 Prothrombin time (PT) in platelet poor plasma by coagu lation assay 13.1 s 12.2-14.7 INR in platelet poor plasma or blood by coagulation as say 1.0 0.8-1.4 Activated partial thromboplastin time (a PTT) in platelet poor plasma bycoagulation assay - 05/18/17 14:47 Activated partial thromboplastin time (a PTT) in platelet poor plasma bycoagulation assay 28 s 24-35 Comprehensive metabolic panel - 05/18/17 14:47 Serum or plasma sodium measurement (moles/volume) 138 mmol/L 135-145 Serum or plasma potassium measurement (moles/volume) 4.0 mmol/L 3.6-5.0 Serum or plasma chloride measurement (moles/volume) 104 mmol/L 98-107 Carbon dioxide 24 mmol/L 21-32 Serum or plasma anion gap determination (moles/volume) 10 mmol/L 5-14 Serum or plasma urea nitrogen measurement (mass/volume ) 6 mg/dL 7-18 Serum or plasma creatinine measurement (mass/volume) 0.77 mg/dL 0.60-1.30 Serum or plasma urea nitrogen/creatinine mass ratio 8 NRG Serum or plasma creatinine measurement w ith calculation of estimated glomerular filtration rate > NRG Serum or plasma glucose measurement (mass/volume) 200 mg/dL 70-105 Serum or plasma calcium measurement (mass/volume) 9.7 mg/dL 8.5-10.1 Serum or plasma total bilirubin measurement (mass/volu me) 0.8 mg/dL 0.1-1.0 Serum or plasma alkaline phosphatase kaylah surement (enzymatic activity/volume) 70 U/L 40-136 Serum or plasma aspartate aminotransfera se measurement (enzymatic activity/volume) 25 U/L 5-34 Serum or plasma alanine aminotransferase measurement (enzymatic activity/volume) 21 U/L 0-55 Serum or plasma protein measurement (mass/volume) 7.5 g/dL 6.4-8.2 Serum or plasma albumin measurement (mass/volume) 4.0 g/dL 3.2-4.5 Magnesium - 05/18/17 14:47 Magnesium 1.7 mg/dL 1.8-2.4 Serum or plasma troponin i.cardiac measu rement (mass/volume) - 05/18/17 14:47 Serum or plasma troponin i.cardiac measurement (mass/v olume) < ng/mL <0.30 Serum or plasma amylase measurement (enz ymatic activity/volume) - 05/18/17 14:47 Serum or plasma amylase measurement (enzymatic activit y/volume) 64 U/L 25-125 Lipase - 05/18/17 14:47 Lipase 33 U/L 8-78 Serum or plasma lithium measurement (mol es/volume) - 05/18/17 14:47 BNP level 351.8 pg/mL <100.0 Serum or plasma thyrotropin measurement by detection limit <=0.05 miu/l (units/volume) - 05/18/17 14:47 Serum or plasma thyrotropin measurement by detection limit <=0.05 miu/l (units/volume) 1.21 u[iU]/mL 0.35-4.94 Serum or plasma ethanol measurement (mas s/volume) - 05/18/17 14:47 Serum or plasma ethanol measurement (mass/volume) < mg/dL <10 Complete urinalysis with reflex to cultu re - 05/18/17 15:07 Urine color determination YELLOW NRG Urine clarity determination CLEAR NR G Urine pH measurement by test strip 8 5-9 Specific gravity of urine by test strip 1.010 1.016-1.022 Urine protein assay by test strip, semi-quantitative 2+ NEGATIVE Urine glucose detection by automated test strip 3+ NEGATIVE Erythrocytes detection in urine sediment by light micr oscopy NEGATIVE NEGATIVE Urine ketones detection by automated test strip NE GATIVE NEGATIVE Urine nitrite detection by test strip NEGATIVE NEGATIVE Urine total bilirubin detection by test strip NEGA TIVE NEGATIVE Urine urobilinogen measurement by automated test strip (mass/volume) NORMAL NORMAL Urine leukocyte esterase detection by dipstick NEG ATIVE NEGATIVE Automated urine sediment erythrocyte cou nt by microscopy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
[2019-09-16] MEDS ORDERED: fentaNYL INJECTION 100 MCG/2 ML AMP IVP ONE (16:15)
[2019-09-16 16:18] LABS: BASOPHILS % (AUTO) 0 % (0-10); EOSINOPHILS % (AUTO) 0 % (0-10); HEMATOCRIT 34 % (40-54); HEMOGLOBIN 11.9 G/DL (13.3-17.7); LYMPHOCYTES # (AUTO) 1.5 X 10^3 (1.0-4.0); LYMPHOCYTES % (AUTO) 30 % (12-44); MEAN CORPUSCULAR HEMOGLOBIN 38 PG (25-34); MEAN CORPUSCULAR HGB CONC 35 G/DL (32-36); MEAN CORPUSCULAR VOLUME 108 FL (80-99); MEAN PLATELET VOLUME 9.4 FL (7.4-10.4); MONOCYTES # (AUTO) 0.5 X 10^3 (0.0-1.0); MONOCYTES % (AUTO) 10 % (0-12); NEUTROPHILS # (AUTO) 3.1 X 10^3 (1.8-7.8); NEUTROPHILS % (AUTO) 60 % (42-75); PLATELET COUNT 189 10^3/uL (130-400); RED CELL DISTRIBUTION WIDTH 12.9 % (10.0-14.5); WHITE BLOOD COUNT 5.1 10^3/uL (4.3-11.0)
[2019-09-16 16:27] LABS: CHLORIDE 104 MMOL/L (98-107); POTASSIUM 5.7 MMOL/L (3.6-5.0); SODIUM 135 MMOL/L (135-145)
[2019-09-16 16:28] LABS: CALCIUM 9.6 MG/DL (8.5-10.1)
[2019-09-16 16:29] LABS: GLUCOSE 248 MG/DL (70-105)
[2019-09-16 16:30] LABS: CARBON DIOXIDE 20 MMOL/L (21-32)
[2019-09-16 16:33] LABS: BUN/CREATININE RATIO 21; CREATININE SERUM 1.17 MG/DL (0.60-1.30); GFR ESTIMATED > 60
[2019-09-16] MEDS ORDERED: IOHEXOL 350 MG/ML 100 ML (OMNIPAQUE 350) VIAL IV ONE (17:00)
[2019-09-16] MEDS ORDERED: NS 100 ML (IVPB) BAG IV ONE (17:00)
[2019-09-16] MEDS ORDERED: HOLD METFORMIN - RECEIVED CONTRAST 20 ML VIAL IV SCH (17:00)
[2019-09-16] MEDS ORDERED: CATHETER FLUSH 10 ML SYR IV PRN (17:00)
--- NOTE | 2019-09-16 17:01 | ED Chest Pain ---
General Chief Complaint: Chest Wall Stated Complaint: FALL - RIB PAIN Nursing Triage Note: PT CO OF L RIB PAIN, PT STATES FELL LAST NITE BETWEEN 1-2. PT STATES WAS INTOXICATED, STATES ALSO HIT L SIDE OF HEAD. DENIES LOC Nursing Sepsis Screen: No Definite Risk Source: patient Exam Limitations: no limitations History of Present Illness Date Seen by Provider: Sep 16, 2019 Time Seen by Provider: 16:00 Initial Comments To ER with reports of fall last night at about 1 AM and subsequent left upper quadrant abdominal and left lower chest wall pain worsened by movement and deep breathing and palpation. He also hit the back of his head on the left side. Timing/Duration: 1-2 days Severity/Quality: moderate Location: other Radiation: no radiation Activities at Onset: none Prior CP/Workup: no prior chest pain ASA po CHEMICAL MAKER: No NTG SL CHEMICAL MAKER: No Allergies and Home Medications Allergies Coded Allergies: No Known Drug Allergies (Unverified , 02/04/13) Home Medications Albuterol Sulfate 1 Puff Puff, 2 PUFF IH Q4H PRN for SHORTNESS OF BREATH 1 PUFF = 90 MCG Prescribed by: RAQUEL LARSEN on 01/14/18 1503 Azithromycin 250 Mg Tablet, 500 MG PO DAILY Prescribed by: RAQUEL LARSEN on 01/14/18 151 Benzonatate 100 Mg Capsule, 100 MG PO TID PRN for cough Prescribed by: RAQUEL LARSEN on 01/14/18 151 Cyclobenzaprine HCl 10 Mg Tablet, 10 MG PO TID PRN for MUSCLE SPASM OR BACK PAIN Prescribed by: RAQUEL LARSEN on 01/14/18 1503 Gabapentin 300 Mg Capsule, 300 MG PO HS, (Reported) Glipizide 10 Mg Tab.er.24, 10 MG PO DAILY, (Reported) Hydrocodone Bit/Acetaminophen 1 Tab Tab, 1-2 TAB PO Q6HR PRN for PAIN-MODERATE Prescribed by: RAQUEL LARSEN on 01/14/18 1503 Insulin Detemir 100 Unit/1 Ml Insuln.pen, 30 UNIT SQ DAILY PRN for BLOOD SUGAR, (Reported) Levofloxacin 750 Mg Tablet, 750 MG PO DAILY Prescribed by: RAQUEL LARSEN on 01/14/18 151 Losartan Potassium 25 Mg Tablet, 12.5 MG PO DAILY, (Reported) TAKES 1/2 (25MG) TABLET Metformin HCl 500 Mg Tab.er.24h, 500 MG PO DAILY, (Reported) Pantoprazole Sodium 40 Mg Tablet.dr, 40 MG PO DAILY PRN for HEARTBURN, (Reported) Prednisone 20 Mg Tab, 40 MG PO DAILY@0700 Prescribed by: RAQUEL LARSEN on 01/14/18 1503 Promethazine HCl/Codeine 118 Ml Syrup, 5 ML PO Q6H PRN for cough Prescribed by: RAQUEL LARSEN on 01/14/18 1512 Sertraline HCl 50 Mg Tablet, 50 MG PO DAILY, (Reported) Simvastatin 20 Mg Tablet, 20 MG PO DAILY, (Reported) Patient Home Medication List Home Medication List Reviewed: Yes Review of Systems Review of Systems Constitutional: see HPI EENTM: No Symptoms Reported Respiratory: No Symptoms Reported Cardiovascular: No Symptoms Reported Gastrointestinal: See HPI Genitourinary: No Symptoms Reported Musculoskeletal: no symptoms reported Skin: no symptoms reported Psychiatric/Neurological: No Symptoms Reported Endocrine: No Symptoms Reported Hematologic/Lymphatic: No Symptoms Reported Past Daiquzh-Idetij-Qnohjm Hx Patient Social History Alcohol Use: Regular Use Number of Drinks Today: 2 Alcohol Beverage of Choice: Beer Recreational Drug Use: No Smoking Status: Current Everyday Smoker Type Used: Cigarettes 2nd Hand Smoke Exposure: Yes Recent Foreign Travel: No Contact w/Someone Who Travel: No Recent Infectious Disease Expo: No Recent Hopitalizations: No Physical Abuse: No Sexual Abuse: No Immunizations Up To Date Tetanus Booster (TDap): Unknown Seasonal Allergies Seasonal Allergies: No Past Medical History Surgeries: No Respiratory: Yes Asthma Cardiac: No High Cholesterol, Hypertension Neurological: Yes (NEUROPATHY IN HANDS AND FEET) Neuropathy Reproductive Disorders: No Sexually Transmitted Disease: No HIV/AIDS: No Genitourinary: No Gastrointestinal: No Musculoskeletal: Yes (R knee) Arthritis Endocrine: Yes Diabetes, Insulin dep HEENT: No Cancer: No Psychosocial: No Integumentary: No Blood Disorders: No Adverse Reaction/Blood Tranf: No Family Medical History No Pertinent Family Hx Physical Exam Vital Signs Vital Signs - First Documented 09/16/19 15:55 Temp 36.7 Pulse 76 Resp 18 B/P (MAP) 145/90 (108) Pulse Ox 100 Capillary Refill : Less Than 3 Seconds Height, Weight, BMI Height: 5'8.00" Weight: 153lbs. 1.0oz. [id number]; 21.00 BMI Method:Stated General Appearance: No Apparent Distress, WD/WN Respiratory: No Accessory Muscle Use, No Respiratory Distress, Other (left [address] wall is tender to palpation) Cardiovascular: Regular Rate, Rhythm, Normal Peripheral Pulses Gastrointestinal: Normal Bowel Sounds, Non Tender, Soft Extremity: Normal Capillary Refill, Normal Inspection Neurologic/Psychiatric: Alert, Oriented x3 Skin: Normal Color, Warm/Dry Progress/Results/Core Measures Results/Orders Lab Results Laboratory Tests Test 09/16/19 16:09 Range/Units White Blood Count 5.1 4.3-11.0 10^3/uL Red Blood Count 3.13 L 4.35-5.85 10^6/uL Hemoglobin 11.9 L 13.3-17.7 G/DL Hematocrit 34 L 40-54 % Mean Corpuscular Volume 108 H 80-99 FL Mean Corpuscular Hemoglobin 38 H 25-34 PG Mean Corpuscular Hemoglobin Concent 35 32-36 G/DL Red Cell Distribution Width 12.9 10.0-14.5 % Platelet Count 189 130-400 10^3/uL Mean Platelet Volume 9.4 7.4-10.4 FL Neutrophils (%) (Auto) 60 42-75 % Lymphocytes (%) (Auto) 30 12-44 % Monocytes (%) (Auto) 10 0-12 % Eosinophils (%) (Auto) 0 0-10 % Basophils (%) (Auto) 0 0-10 % Neutrophils # (Auto) 3.1 1.8-7.8 X 10^3 Lymphocytes # (Auto) 1.5 1.0-4.0 X 10^3 Monocytes # (Auto) 0.5 0.0-1.0 X 10^3 Eosinophils # (Auto) 0.0 0.0-0.3 10^3/uL Basophils # (Auto) 0.0 0.0-0.1 10^3/uL Sodium Level 135 135-145 MMOL/L Potassium Level 5.7 H 3.6-5.0 MMOL/L Chloride Level 104 98-107 MMOL/L Carbon Dioxide Level 20 L 21-32 MMOL/L Anion Gap 11 5-14 MMOL/L Blood Urea Nitrogen 24 H 7-18 MG/DL Creatinine 1.17 0.60-1.30 MG/DL Estimat Glomerular Filtration Rate > 60 BUN/Creatinine Ratio 21 Glucose Level 248 H 70-105 MG/DL Calcium Level 9.6 8.5-10.1 MG/DL Serum Alcohol < 10 <10 MG/DL My Orders Orders - KATHY CRAIN TYPING OFFICE WORKER Cbc With Automated Diff (09/16/19 16:11) Basic Metabolic Panel (09/16/19 16:11) Ct Abdomen/Pelvis W (09/16/19 16:11) Alcohol (09/16/19 16:11) Ed Iv/Invasive Line Start (09/16/19 16:11) Fentanyl Injection (Sublimaze Injection (09/16/19 16:15) Ct Head Wo (09/16/19 16:26) Iohexol Injection (Omnipaque 350 Mg/Ml 1 (09/16/19 17:00) Received Contrast (Hold Metformin- Contr (09/16/19 17:00) Sodium Chloride Flush (Catheter Flush Sy (09/16/19 17:00) Ns (Ivpb) (Sodium Chloride 0.9% Ivpb Bag (09/16/19 17:00) Medications Given in ED Current Medications Medications Dose Ordered Sig/Sherri Route Start Time Stop Time Status Last Admin Dose Admin Fentanyl Citrate 50 mcg ONCE ONCE IVP 09/16/19 16:15 09/16/19 16:16 DC 09/16/19 16:56 50 MCG Iohexol 100 ml ONCE ONCE IV 09/16/19 17:00 09/16/19 17:01 DC 09/16/19 17:29 82 ML Sodium Chloride 10 ml NEEDED PRN IV 09/16/19 17:00 09/16/19 17:30 10 ML Sodium Chloride 100 ml ONCE ONCE IV 09/16/19 17:00 09/16/19 17:01 DC 09/16/19 17:30 80 ML Vital Signs/I&O 09/16/19 15:55 Temp 36.7 Pulse 76 Resp 18 B/P (MAP) 145/90 (108) Pulse Ox 100 Blood Pressure Mean: 108 Departure Impression Primary Impression: Rib pain Disposition: 01 HOME, SELF-CARE Condition: Stable Departure-Patient Inst. Decision time for Depature: 17:32 Referrals: [facility] (PCP/Family) Primary Care Physician Patient Instructions: Bruised Rib (DC) KATHY CRAIN TYPING OFFICE WORKER Sep 16, 2019 17:00
--- NOTE | 2019-09-16 17:36 | Diagnostic Imaging Report ---
PROCEDURE: CT head without contrast. TECHNIQUE: Multiple contiguous axial images were obtained through the brain without the use of intravenous contrast. Auto Exposure Controls were utilized during the CT exam to meet ALARA standards for radiation dose reduction. INDICATION: Hit left side of head. FINDINGS: The ventricles are normal in size, shape and position. There is no acute parenchymal hemorrhage, edema or mass. There is no extra-axial mass or hemorrhage. There is no skull fracture. IMPRESSION: Normal CT of the head. Dictated by: Dictated on workstation # [id number]
--- NOTE | 2019-09-16 17:40 | Diagnostic Imaging Report ---
PROCEDURE: CT abdomen and pelvis with contrast. TECHNIQUE: Multiple contiguous axial images were obtained through the abdomen and pelvis after administration of intravenous contrast. Auto Exposure Controls were utilized during the CT exam to meet ALARA standards for radiation dose reduction. INDICATION: Fall. Left-sided pain. FINDINGS: The lung bases are clear. The lower ribs appear normal. There is no effusion. The liver, gallbladder and bile ducts are normal. There are granulomatous calcifications in the spleen. Pancreas and adrenals are normal. Kidneys, ureters and bladder are normal. No acute bowel abnormality is seen. No hemorrhage is evident. There is no bony abnormality. IMPRESSION: No acute abnormality is seen. Dictated by: Dictated on workstation # [id number]
[2019-09-16] MEDS ORDERED: RX-HYDROCODONE/APAP 5/325 MG #4 TAB PK PO PRN (17:45)
[2019-09-16 18:01] VITALS: BP 140/88
== END 2019-09-16 18:04 | disposition home or self-care (01) ==
LOC: EDUNIT# 14:57 → ER 14:58
DX: R07.81 Pleurodynia (principal); I10 Essential (primary) hypertension; J45.909 Unspecified asthma, uncomplicated; E78.00 Pure hypercholesterolemia, unspecified; E11.40 Type 2 diabetes mellitus with diabetic neuropathy, unspecified; F17.210 Nicotine dependence, cigarettes, uncomplicated; Z79.4 Long term (current) use of insulin; Z79.52 Long term (current) use of systemic steroids; W19.XXXA Unspecified fall, initial encounter
CPT/HCPCS: 36415; 70450; 74177; 80048; 80320; 85025

== ENCOUNTER 2020-04-13 16:18 | Emergency (ER) | payer SELFPAY ==
[~2020-04-13] VITALS: Ht 172 cm; Wt 72.5 kg
--- NOTE | 2020-04-13 18:09 | ED Upper Extremity ---
General Chief Complaint: Upper Extremity Stated Complaint: L HAND NUMBNESS Nursing Triage Note: pt presents to ed via pov from home with complaints of l arm numbness/weakness and feeling cold x 2 weeks. pt also reports blurred vision x 2 weeks. pt states he has seen his dr for the stated complaints and has an appointment with [facility] in May. Pt reports his Dr. [place] investigate his arm weakness. Nursing Sepsis Screen: No Definite Risk Source: patient Exam Limitations: no limitations History of Present Illness Date Seen by Provider: Apr 13, 2020 Time Seen by Provider: 18:07 Initial Comments To ER with a 3 to 4-week history of left arm weakness, a cool sensation and blurred vision. He is a diabetic but does not check his blood sugars. Onset: other Severity: moderate Pain/Injury Location: left arm Method of Injury: unknown Modifying Factors: Worse With Movement Allergies and Home Medications Allergies Coded Allergies: No Known Drug Allergies (Unverified , 02/04/13) Home Medications Albuterol Sulfate 1 Puff Puff, 2 PUFF IH Q4H PRN for SHORTNESS OF BREATH 1 PUFF = 90 MCG Prescribed by: RAQUEL LARSEN on 01/14/18 1503 Azithromycin 250 Mg Tablet, 500 MG PO DAILY Prescribed by: RAQUEL LARSEN on 01/14/18 151 Benzonatate 100 Mg Capsule, 100 MG PO TID PRN for cough Prescribed by: RAQUEL LARSEN on 01/14/18 151 Cyclobenzaprine HCl 10 Mg Tablet, 10 MG PO TID PRN for MUSCLE SPASM OR BACK PAIN Prescribed by: RAQUEL LARSEN on 01/14/18 1503 Gabapentin 300 Mg Capsule, 300 MG PO HS, (Reported) Glipizide 10 Mg Tab.er.24, 10 MG PO DAILY, (Reported) Hydrocodone Bit/Acetaminophen 1 Tab Tab, 1-2 TAB PO Q6HR PRN for PAIN-MODERATE Prescribed by: RAQUEL LARSEN on 01/14/18 1503 Insulin Detemir 100 Unit/1 Ml Insuln.pen, 30 UNIT SQ DAILY PRN for BLOOD SUGAR, (Reported) Levofloxacin 750 Mg Tablet, 750 MG PO DAILY Prescribed by: RAQUEL LARSEN on 01/14/18 1512 Losartan Potassium 25 Mg Tablet, 12.5 MG PO DAILY, (Reported) TAKES 1/2 (25MG) TABLET Metformin HCl 500 Mg Tab.er.24h, 500 MG PO DAILY, (Reported) Pantoprazole Sodium 40 Mg Tablet.dr, 40 MG PO DAILY PRN for HEARTBURN, (Reported) Prednisone 20 Mg Tab, 40 MG PO DAILY@0700 Prescribed by: RAQUEL LARSEN on 01/14/18 1503 Promethazine HCl/Codeine 118 Ml Syrup, 5 ML PO Q6H PRN for cough Prescribed by: RAQUEL LARSEN on 01/14/18 1512 Sertraline HCl 50 Mg Tablet, 50 MG PO DAILY, (Reported) Simvastatin 20 Mg Tablet, 20 MG PO DAILY, (Reported) Patient Home Medication List Home Medication List Reviewed: Yes Review of Systems Constitutional: see HPI EENTM: see HPI Respiratory: no symptoms reported Cardiovascular: no symptoms reported Genitourinary: no symptoms reported Musculoskeletal: no symptoms reported Skin: no symptoms reported Psychiatric/Neurological: No Symptoms Reported Past Xhyenwo-Rcztbl-Hqkttg Hx Patient Social History Alcohol Use: Occasionally Uses Number of Drinks Today: AA Alcohol Beverage of Choice: Beer Recreational Drug Use: No Smoking Status: Current Everyday Smoker Type Used: Cigarettes 2nd Hand Smoke Exposure: Yes Recent Foreign Travel: No Contact w/Someone Who Travel: No Recent Infectious Disease Expo: No Recent Hopitalizations: No Physical Abuse: No Sexual Abuse: No Mistreated: No Fear: No Immunizations Up To Date Tetanus Booster (TDap): Unknown Seasonal Allergies Seasonal Allergies: No Past Medical History Surgeries: No Respiratory: Yes Asthma Cardiac: No High Cholesterol, Hypertension Neurological: Yes (NEUROPATHY IN HANDS AND FEET) Neuropathy Reproductive Disorders: No Sexually Transmitted Disease: No HIV/AIDS: No Genitourinary: No Gastrointestinal: No Musculoskeletal: Yes (R knee) Arthritis Endocrine: Yes Diabetes, Insulin dep HEENT: No Cancer: No Psychosocial: No Integumentary: No Blood Disorders: No Adverse Reaction/Blood Tranf: No Family Medical History No Pertinent Family Hx Physical Exam Vital Signs Vital Signs - First Documented 04/13/20 16:39 Temp 36.7 Pulse 92 Resp 18 B/P (MAP) 121/83 (96) Pulse Ox 93 Capillary Refill : Less Than 3 Seconds Height, Weight, BMI Height: 5'8.00" Weight: 153lbs. 1.0oz. [id number]; 24.00 BMI Method:Stated General Appearance: WD/WN, no apparent distress Neck: non-tender, full range of motion Respiratory: lungs clear, normal breath sounds, no respiratory distress, no accessory muscle use Shoulder: normal inspection, non-tender Elbow/Forearm: normal inspection, non-tender Wrist: Yes normal inspection, Yes non-tender Hand: normal inspection, non-tender Neurologic/Tendon: normal sensation, normal motor functions, normal tendon functions Neurologic/Psychiatric: alert, normal mood/affect, oriented x 3 Skin: normal color, warm/dry The radial pulse is bilaterally 1+ and equal. Strength is 5 out of 5 flexion and extension of the forearms. Strength is 5 out of 5 lower extremities. Progress/Results/Core Measures Results/Orders Lab Results Laboratory Tests Test 04/13/20 18:05 04/13/20 19:18 Range/Units White Blood Count 4.7 4.3-11.0 10^3/uL Red Blood Count 3.01 L 4.30-5.52 10^6/uL Hemoglobin 11.0 L 13.3-17.7 g/dL Hematocrit 32 L 40-54 % Mean Corpuscular Volume 107 H 80-99 fL Mean Corpuscular Hemoglobin 37 H 25-34 pg Mean Corpuscular Hemoglobin Concent 34 32-36 g/dL Red Cell Distribution Width 12.9 10.0-14.5 % Platelet Count 182 130-400 10^3/uL Mean Platelet Volume 9.9 9.0-12.2 fL Immature Granulocyte % (Auto) 0 % Neutrophils (%) (Auto) 59 42-75 % Lymphocytes (%) (Auto) 32 12-44 % Monocytes (%) (Auto) 8 0-12 % Eosinophils (%) (Auto) 0 0-10 % Basophils (%) (Auto) 0 0-10 % Neutrophils # (Auto) 2.8 1.8-7.8 10^3/uL Lymphocytes # (Auto) 1.5 1.0-4.0 10^3/uL Monocytes # (Auto) 0.4 0.0-1.0 10^3/uL Eosinophils # (Auto) 0.0 0.0-0.3 10^3/uL Basophils # (Auto) 0.0 0.0-0.1 10^3/uL Immature Granulocyte # (Auto) 0.0 0.0-0.1 10^3/uL Erythrocyte Sedimentation Rate 53 H 0-15 MM/HR Sodium Level 128 L 135-145 MMOL/L Potassium Level 6.2 H 3.6-5.0 MMOL/L Chloride Level 96 L 98-107 MMOL/L Carbon Dioxide Level 20 L 21-32 MMOL/L Anion Gap 12 5-14 MMOL/L Blood Urea Nitrogen 23 H 7-18 MG/DL Creatinine 1.79 H 0.60-1.30 MG/DL Estimat Glomerular Filtration Rate 49 BUN/Creatinine Ratio 13 Glucose Level 633 *H 70-105 MG/DL Calcium Level 8.9 8.5-10.1 MG/DL Corrected Calcium 8.7 8.5-10.1 MG/DL Total Bilirubin 0.4 0.1-1.0 MG/DL Aspartate Amino Transf (AST/SGOT) 26 5-34 U/L Alanine Aminotransferase (ALT/SGPT) 48 0-55 U/L Alkaline Phosphatase 147 H 40-136 U/L Total Protein 7.8 6.4-8.2 GM/DL Albumin 4.3 3.2-4.5 GM/DL Beta-Hydroxybutyrate (Chem panel) 0.74 H 0.00-0.27 MMOL/L Glucometer 348 H 70-110 MG/DL My Orders Orders - KATHY CRAIN APRN Cbc With Automated Diff (04/13/20 17:53) Comprehensive Metabolic Panel (04/13/20 17:53) Hemoglobin A1c (04/13/20 17:53) Beta Hydroxybutyrate (04/13/20 17:53) Ct Head Wo (04/13/20 17:53) Erythrocyte Sedimentation Rate (04/13/20 17:53) Ns Iv 1000 Ml (Sodium Chloride 0.9%) (04/13/20 18:15) Insulin (Regular) Human (Novolin R (Per (04/13/20 18:45) Ekg Tracing (04/13/20 18:54) Insulin Determir (Per Unit) (Levemir (Pe (04/13/20 19:30) Medications Given in ED Current Medications Medications Dose Ordered Sig/Sherri Route Start Time Stop Time Status Last Admin Dose Admin Insulin Human Regular 10 unit ONCE ONCE IV 04/13/20 18:45 04/13/20 18:46 DC 04/13/20 18:39 10 UNIT Vital Signs/I&O 04/13/20 16:39 Temp 36.7 Pulse 92 Resp 18 B/P (MAP) 121/83 (96) Pulse Ox 93 Blood Pressure Mean: 96 Departure Impression Primary Impression: Type 2 diabetes mellitus Disposition: ADMITTED INPATIENT Condition: Stable Departure-Patient Inst. Decision time for Depature: 19:30 Referrals: ALFREDITO MCINTYRE MD (PCP/Family) Primary Care Physician Patient Instructions: Hyperglycemia, Adult Add. Discharge Instructions: 1. Please call [facility] on Wednesday to make an appointment to be seen for follow-up. Getting your blood sugar under better control will help improve your symptoms. Emergency department focuses on treating and ruling out life-threatening diseases. Whenever possible, a diagnosis is given. However, most patients are given an impression based on their history, physical exam, and workup during your brief time in the ER. Information about probable diagnosis and other educational material has been provided. Please take the time to read and understand this information. It is very important that you follow up with a physician as discussed during the visit today. Failure to adhere to your follow-up instructions may lead to severe disability, injury, or so please make sure to keep your appointments or obtain one as requested. All discharge instructions reviewed with patient and/or family. Voiced understanding. KATHY CRAIN APRN Apr 13, 2020 18:09
[2020-04-13 18:12] LABS: BASOPHILS % (AUTO) 0 % (0-10); EOSINOPHILS % (AUTO) 0 % (0-10); HEMATOCRIT 32 % (40-54); LYMPHOCYTES # (AUTO) 1.5 10^3/uL (1.0-4.0); LYMPHOCYTES % (AUTO) 32 % (12-44); MEAN CORPUSCULAR HEMOGLOBIN 37 pg (25-34); MEAN CORPUSCULAR HGB CONC 34 g/dL (32-36); MEAN CORPUSCULAR VOLUME 107 fL (80-99); MEAN PLATELET VOLUME 9.9 fL (9.0-12.2); MONOCYTES # (AUTO) 0.4 10^3/uL (0.0-1.0); MONOCYTES % (AUTO) 8 % (0-12); NEUTROPHILS # (AUTO) 2.8 10^3/uL (1.8-7.8); NEUTROPHILS % (AUTO) 59 % (42-75); PLATELET COUNT 182 10^3/uL (130-400); WHITE BLOOD COUNT 4.7 10^3/uL (4.3-11.0)
[2020-04-13] MEDS ORDERED: NS IV 1000 ML 1,000 ML IV SCH (18:15)
--- NOTE | 2020-04-13 18:20 | Diagnostic Imaging Report ---
PROCEDURE: CT head without contrast. TECHNIQUE: Multiple contiguous axial images were obtained through the brain without the use of intravenous contrast. Auto Exposure Controls were utilized during the CT exam to meet ALARA standards for radiation dose reduction. INDICATION: Left arm weakness and blurred vision. COMPARISON: CT head from 09/16/2019 FINDINGS: No hyperdense hemorrhage or space-occupying mass. No hydrocephalus or midline shift. The basilar cisterns are normal. Soliz-white matter differentiation is well preserved. The mastoid air cells are clear. Paranasal sinuses are normal. No focal osseous abnormality of the calvarium. IMPRESSION: 1. No acute intracranial process. Dictated by: Dictated on workstation # [id number]
[2020-04-13 18:22] LABS: ALBUMIN 4.3 GM/DL (3.2-4.5)
[2020-04-13 18:24] LABS: CALCIUM 8.9 MG/DL (8.5-10.1)
[2020-04-13 18:25] LABS: TOTAL PROTEIN 7.8 GM/DL (6.4-8.2)
[2020-04-13 18:27] LABS: BILIRUBIN,TOTAL 0.4 MG/DL (0.1-1.0)
[2020-04-13 18:29] LABS: CREATININE SERUM 1.79 MG/DL (0.60-1.30)
[2020-04-13 18:33] LABS: ERYTHROCYTE SEDIMENTATION RATE 53 MM/HR (0-15)
[2020-04-13 18:39] LABS: POTASSIUM 6.2 MMOL/L (3.6-5.0)
[2020-04-13] MEDS ORDERED: inSUlin (REGULAR) HUMAN 1 UNIT/0.01 ML (CHARGE PER UNIT) IV ONE (18:45)
[2020-04-13 19:35] VITALS: BP 132/80
== END 2020-04-13 19:35 | disposition other institution (70) ==
LOC: EDUNIT# 16:18 → ER 16:20
DX: E11.9 Type 2 diabetes mellitus without complications (principal); I10 Essential (primary) hypertension; E78.00 Pure hypercholesterolemia, unspecified; F17.210 Nicotine dependence, cigarettes, uncomplicated; Z79.4 Long term (current) use of insulin; Z79.52 Long term (current) use of systemic steroids
CPT/HCPCS: 36415; 70450; 80053; 82010; 82962; 83036; 85025; 85652; 93005

== ENCOUNTER → 2020-09-06 | Outpatient (CLI) | payer SELFPAY ==
[~2020-09-06] MED LIST changes: +SERT-413 PO; -SERT50TA9 PO
== END ==
LOC: CARD 13:30
PROVIDERS: ATTEND Internal Medicine Cardiovascular Disease
DX: I51.7 Cardiomegaly (principal)
CPT/HCPCS: 93306

== ENCOUNTER 2020-12-06 18:37 | Inpatient (IN) | payer MEDICAID, OTHER ==
[~2020-12-06] VITALS: Ht 172.7 cm; Wt 73.5 kg
--- NOTE | 2020-12-06 19:08 | ED General ---
General Stated Complaint: VOMITING, SOB Source of Information: Patient Exam Limitations: No Limitations History of Present Illness Date Seen by Provider: Dec 06, 2020 Time Seen by Provider: 20:56 Initial Comments To ER with vomiting and shortness of breath as well as cough and general weakness for 2 days. He has not taken his insulin in a couple of days. Timing/Duration: 1-2 Days Severity: Moderate Associated Systoms: Cough, Nausea/Vomiting Allergies and Home Medications Allergies Coded Allergies: No Known Drug Allergies (Unverified , 02/04/13) Home Medications Albuterol Sulfate 1 Puff Puff, 2 PUFF IH Q4H PRN for SHORTNESS OF BREATH 1 PUFF = 90 MCG Prescribed by: RAQUEL LARSEN on 01/14/18 150 Azithromycin 250 Mg Tablet, 500 MG PO DAILY Prescribed by: RAQUEL LARSEN on 01/14/18 151 Benzonatate 100 Mg Capsule, 100 MG PO TID PRN for cough Prescribed by: RAQUEL LARSEN on 01/14/18 151 Cyclobenzaprine HCl 10 Mg Tablet, 10 MG PO TID PRN for MUSCLE SPASM OR BACK PAIN Prescribed by: RAQUEL LARSEN on 01/14/18 150 Gabapentin 300 Mg Capsule, 300 MG PO HS, (Reported) Glipizide 10 Mg Tab.er.24, 10 MG PO DAILY, (Reported) Hydrocodone Bit/Acetaminophen 1 Tab Tab, 1-2 TAB PO Q6HR PRN for PAIN-MODERATE Prescribed by: RAQUEL LARSEN on 01/14/18 150 Insulin Detemir 100 Unit/1 Ml Insuln.pen, 30 UNIT SQ DAILY PRN for BLOOD SUGAR, (Reported) Levofloxacin 750 Mg Tablet, 750 MG PO DAILY Prescribed by: RAQUEL LARSEN on 01/14/18 151 Losartan Potassium 25 Mg Tablet, 12.5 MG PO DAILY, (Reported) TAKES 1/2 (25MG) TABLET Metformin HCl 500 Mg Tab.er.24h, 500 MG PO DAILY, (Reported) Pantoprazole Sodium 40 Mg Tablet.dr, 40 MG PO DAILY PRN for HEARTBURN, (Reported) Prednisone 20 Mg Tab, 40 MG PO DAILY@0700 Prescribed by: RAQUEL LARSEN on 01/14/18 150 Promethazine HCl/Codeine 118 Ml Syrup, 5 ML PO Q6H PRN for cough Prescribed by: RAQUEL LARSEN on 01/14/18 1512 Sertraline HCl 50 Mg Tablet, 50 MG PO DAILY, (Reported) Simvastatin 20 Mg Tablet, 20 MG PO DAILY, (Reported) Patient Home Medication List Home Medication List Reviewed: Yes Review of Systems Review of Systems Constitutional: see HPI, malaise, weakness EENTM: see HPI Respiratory: see HPI, cough Cardiovascular: no symptoms reported Genitourinary: no symptoms reported Musculoskeletal: no symptoms reported Skin: no symptoms reported Psychiatric/Neurological: No Symptoms Reported Hematologic/Lymphatic: No Symptoms Reported Immunological/Allergic: no symptoms reported Past Hnuevkm-Yxsrcr-Iiszjl Hx Immunizations Up To Date Tetanus Booster (TDap): Unknown Seasonal Allergies Seasonal Allergies: No Past Medical History Surgeries: No Respiratory: Yes Asthma Cardiac: No High Cholesterol, Hypertension Neurological: Yes (NEUROPATHY IN HANDS AND FEET) Neuropathy Reproductive Disorders: No Sexually Transmitted Disease: No HIV/AIDS: No Genitourinary: No Gastrointestinal: No Musculoskeletal: Yes (R knee) Arthritis Endocrine: Yes Diabetes, Insulin dep HEENT: No Cancer: No Psychosocial: No Integumentary: No Blood Disorders: No Adverse Reaction/Blood Tranf: No Family Medical History No Pertinent Family Hx Physical Exam Vital Signs Vital Signs - First Documented 12/06/20 18:55 Temp 36.8 Pulse 89 Resp 16 B/P (MAP) 98/63 (75) Pulse Ox 99 O2 Delivery Room Air Capillary Refill : Height, Weight, BMI Height: 5'8.00" Weight: 153lbs. 1.0oz. 69.310370zc; 24.00 BMI Method:Stated General Appearance: No Apparent Distress, WD/WN Eyes: Bilateral Eye Normal Inspection, Bilateral Eye PERRL, Bilateral Eye EOMI HEENT: PERRL/EOMI, TMs Normal Neck: Full Range of Motion, Normal Inspection Respiratory: No Accessory Muscle Use, No Respiratory Distress, Other (Lower lung collado are clear but during initial exam he has some intermittent inspiratory stridor which is forced and goes away during conversation ) Cardiovascular: Regular Rate, Rhythm, Normal Peripheral Pulses Gastrointestinal: Normal Bowel Sounds, Non Tender, Soft Extremity: Normal Capillary Refill, Normal Inspection Neurologic/Psychiatric: Alert, Oriented x3 Skin: Normal Color, Warm/Dry Progress/Results/Core Measures Suspected Sepsis SIRS Temperature: Pulse: Respiratory Rate: Laboratory Tests 12/06/20 19:17: White Blood Count 5.2 Blood Pressure / Mean: Laboratory Tests 12/06/20 19:17: Creatinine 3.74H, Platelet Count 217, Total Bilirubin 0.7 Results/Orders Lab Results Laboratory Tests Test 12/06/20 19:14 12/06/20 19:17 Range/Units Glucometer 250 H 70-110 MG/DL White Blood Count 5.2 4.3-11.0 10^3/uL Red Blood Count 3.44 L 4.30-5.52 10^6/uL Hemoglobin 12.8 L 13.3-17.7 g/dL Hematocrit 37 L 40-54 % Mean Corpuscular Volume 108 H 80-99 fL Mean Corpuscular Hemoglobin 37 H 25-34 pg Mean Corpuscular Hemoglobin Concent 34 32-36 g/dL Red Cell Distribution Width 12.7 10.0-14.5 % Platelet Count 217 130-400 10^3/uL Mean Platelet Volume 10.4 9.0-12.2 fL Immature Granulocyte % (Auto) 0 % Neutrophils (%) (Auto) 57 42-75 % Lymphocytes (%) (Auto) 33 12-44 % Monocytes (%) (Auto) 10 0-12 % Eosinophils (%) (Auto) 0 0-10 % Basophils (%) (Auto) 0 0-10 % Neutrophils # (Auto) 3.0 1.8-7.8 10^3/uL Lymphocytes # (Auto) 1.7 1.0-4.0 10^3/uL Monocytes # (Auto) 0.5 0.0-1.0 10^3/uL Eosinophils # (Auto) 0.0 0.0-0.3 10^3/uL Basophils # (Auto) 0.0 0.0-0.1 10^3/uL Immature Granulocyte # (Auto) 0.0 0.0-0.1 10^3/uL Sodium Level 131 L 135-145 MMOL/L Potassium Level 5.7 H 3.6-5.0 MMOL/L Chloride Level 96 L 98-107 MMOL/L Carbon Dioxide Level 18 L 21-32 MMOL/L Anion Gap 17 H 5-14 MMOL/L Blood Urea Nitrogen 48 H 7-18 MG/DL Creatinine 3.74 H 0.60-1.30 MG/DL Estimat Glomerular Filtration Rate 21 BUN/Creatinine Ratio 13 Glucose Level 248 H 70-105 MG/DL Calcium Level 10.1 8.5-10.1 MG/DL Corrected Calcium 8.5-10.1 MG/DL Total Bilirubin 0.7 0.1-1.0 MG/DL Aspartate Amino Transf (AST/SGOT) 19 5-34 U/L Alanine Aminotransferase (ALT/SGPT) 24 0-55 U/L Alkaline Phosphatase 65 40-136 U/L Total Protein 8.6 H 6.4-8.2 GM/DL Albumin 4.7 H 3.2-4.5 GM/DL Beta-Hydroxybutyrate (Chem panel) 0.69 H 0.00-0.27 MMOL/L SARS-CoV-2 RNA (RT-PCR) Not Detected Not Detecte My Orders Orders - KATHY CRAIN BOILER/CHILLER 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 Cbc With Automated Diff (12/06/20 19:07) Covid 19 Inhouse Test (12/06/20 19:07) Comprehensive Metabolic Panel (12/06/20 19:07) Ua Culture If Indicated (12/06/20 19:07) Ed Iv/Invasive Line Start (12/06/20 19:07) Chest 1 View, Ap/Pa Only (12/06/20 19:07) Lactated Ringers (Lr 1000 Ml Iv Solution (12/06/20 19:15) Beta Hydroxybutyrate (12/06/20 19:30) Lactated Ringers (Lr 1000 Ml Iv Solution (12/06/20 20:45) Vital Signs/I&O 12/06/20 18:55 Temp 36.8 Pulse 89 Resp 16 B/P (MAP) 98/63 (75) Pulse Ox 99 O2 Delivery Room Air Capillary Refill : Departure Communication (Admissions) 2108-The initial aspiratory stridor which was forced is now gone. He is received 1 L of IV fluids. He agrees to stay in the hospital for ongoing IV fluids. Impression Primary Impression: RUDI (acute kidney injury) Disposition: ADMITTED INPATIENT Condition: Stable Admissions Decision to Admit Reason: Admit from ER (General) Decision to Admit/Date: Dec 06, 2020 Time/Decision to Admit Time: 21:11 Departure-Patient Inst. Referrals: ALFREDITO MCINTYRE MD (PCP/Family) Primary Care Physician KATHY CRAIN APRN Dec 06, 2020 19:08
[2020-12-06] MEDS ORDERED: LACTATED RINGERS 1,000 ML IV SCH ×2 (19:15→20:45)
[2020-12-06 19:31] LABS: BASOPHILS % (AUTO) 0 % (0-10); EOSINOPHILS % (AUTO) 0 % (0-10); HEMATOCRIT 37 % (40-54); HEMOGLOBIN 12.8 g/dL (13.3-17.7); LYMPHOCYTES # (AUTO) 1.7 10^3/uL (1.0-4.0); LYMPHOCYTES % (AUTO) 33 % (12-44); MEAN CORPUSCULAR HEMOGLOBIN 37 pg (25-34); MEAN CORPUSCULAR HGB CONC 34 g/dL (32-36); MEAN CORPUSCULAR VOLUME 108 fL (80-99); MEAN PLATELET VOLUME 10.4 fL (9.0-12.2); MONOCYTES # (AUTO) 0.5 10^3/uL (0.0-1.0); MONOCYTES % (AUTO) 10 % (0-12); NEUTROPHILS % (AUTO) 57 % (42-75); PLATELET COUNT 217 10^3/uL (130-400); WHITE BLOOD COUNT 5.2 10^3/uL (4.3-11.0)
[2020-12-06 20:13] LABS: ALBUMIN 4.7 GM/DL (3.2-4.5)
[2020-12-06 20:14] LABS: CHLORIDE 96 MMOL/L (98-107); POTASSIUM 5.7 MMOL/L (3.6-5.0); SODIUM 131 MMOL/L (135-145)
[2020-12-06 20:15] LABS: CALCIUM 10.1 MG/DL (8.5-10.1)
[2020-12-06 20:16] LABS: GLUCOSE 248 MG/DL (70-105); TOTAL PROTEIN 8.6 GM/DL (6.4-8.2)
[2020-12-06 20:17] LABS: CARBON DIOXIDE 18 MMOL/L (21-32)
[2020-12-06 20:18] LABS: BILIRUBIN,TOTAL 0.7 MG/DL (0.1-1.0)
[2020-12-06 20:19] LABS: ALKALINE PHOSPHATASE 65 U/L (40-136)
[2020-12-06 20:20] LABS: CREATININE SERUM 3.74 MG/DL (0.60-1.30); GFR ESTIMATED 21
[2020-12-06 20:21] LABS: BUN/CREATININE RATIO 13
[2020-12-06 20:23] LABS: ALANINE AMINOTRANSFERASE 24 U/L (0-55)
--- NOTE | 2020-12-06 20:50 | Diagnostic Imaging Report ---
INDICATION: cough. TECHNIQUE: Single view chest 8:15 PM. CORRELATION STUDY: 01/14/2018 FINDINGS: The heart size, mediastinal configuration and pulmonary vascularity are within normal limits. The lungs are clear with no consolidating infiltrate. There is no significant effusion or pneumothorax. IMPRESSION: 1. Negative for acute abnormality of the chest. Dictated by: Dictated on workstation # [id number]
[2020-12-06 22:07] LABS: BILIRUBIN,URINE NEGATIVE (NEGATIVE); CLARITY,URINE SL CLOUDY; COLOR,URINE YELLOW; GLUCOSE, URINE (UA) 3+ (NEGATIVE); KETONES,URINE NEGATIVE (NEGATIVE); LEUKOCYTE ESTERASE ,URINE NEGATIVE (NEGATIVE); NITRITE,URINE NEGATIVE (NEGATIVE); PROTEIN,URINE TRACE (NEGATIVE)
[2020-12-06 22:14] LABS: BACTERIA,URINE FEW /HPF; SQUAMOUS EPITHELIAL CELL,UR RARE /HPF; WBC,URINE 0-2 /HPF
[2020-12-06 22:15] LABS: AMORPHOUS SEDIMENT,UR FEW AMOR URATES /LPF; GRANULAR CASTS,URINE RARE /LPF; HYALINE CASTS, URINE 25-50 /LPF
[2020-12-06] MEDS ORDERED: ONDANSETRON 4 MG/2 ML (SDV) Z0FRAN IVP PRN (22:45)
[2020-12-06] MEDS ORDERED: RT-epiNEPHrine (RACEMIC) 2.25% 0.5 ML VIAL INH PRN (22:45)
[2020-12-06] MEDS ORDERED: LORazepam INJ 2 MG/ML (ATIVAN) VIAL IVP PRN (22:45)
[2020-12-06] MEDS: LACTATED RINGERS 1,000 ML IV SCH (23:42)
[2020-12-07] VITALS (7 sets, daily range): BP systolic 114–145; BP diastolic 58–85
[2020-12-07 05:58] LABS: BASOPHILS % (AUTO) 0 % (0-10); EOSINOPHILS % (AUTO) 1 % (0-10); HEMATOCRIT 30 % (40-54); HEMOGLOBIN 10.6 g/dL (13.3-17.7); LYMPHOCYTES # (AUTO) 1.5 10^3/uL (1.0-4.0); LYMPHOCYTES % (AUTO) 40 % (12-44); MEAN CORPUSCULAR HEMOGLOBIN 38 pg (25-34); MEAN CORPUSCULAR HGB CONC 35 g/dL (32-36); MEAN CORPUSCULAR VOLUME 108 fL (80-99); MEAN PLATELET VOLUME 10.1 fL (9.0-12.2); MONOCYTES # (AUTO) 0.4 10^3/uL (0.0-1.0); MONOCYTES % (AUTO) 9 % (0-12); NEUTROPHILS # (AUTO) 1.9 10^3/uL (1.8-7.8); NEUTROPHILS % (AUTO) 50 % (42-75); PLATELET COUNT 173 10^3/uL (130-400); WHITE BLOOD COUNT 3.7 10^3/uL (4.3-11.0)
[2020-12-07 06:13] LABS: POTASSIUM 5.3 MMOL/L (3.6-5.0)
[2020-12-07 06:14] LABS: CALCIUM 9.1 MG/DL (8.5-10.1)
[2020-12-07 06:18] LABS: CREATININE SERUM 2.21 MG/DL (0.60-1.30)
[2020-12-07] MEDS ORDERED: inSUlin (REGULAR) HUMAN 1 UNIT/0.01 ML (CHARGE PER UNIT) SC ONE (06:30)
[2020-12-07] MEDS ORDERED: inSUlin (REGULAR) HUMAN 1 UNIT/0.01 ML (CHARGE PER UNIT) SC PRN (06:30)
[2020-12-07 06:38] LABS: ALBUMIN 3.6 GM/DL (3.2-4.5)
[2020-12-07 06:40] LABS: TOTAL PROTEIN 6.4 GM/DL (6.4-8.2)
--- NOTE | 2020-12-07 06:41 | Short Stay Summary-Hospitalist ---
History of Present Illness HPI/Chief Complaint Chief complaint: Acute kidney injury with kjf-rs-oftghio diabetes History of present illness: This is a 50-year-old -French male who has a past medical history of insulin dependence who has not taken his insulin for several days who presented to the ER with weakness found to have acute kidney injury and severely high glucose levels. Decision was made to place on IV fluids and insulin and supportive care. Currently he denies any nausea or vomiting and is eating lunch. His urinary output is good. We will plan on discharging tomorrow as long as creatinine is improved. Source: patient Exam Limitations: no limitations Date Seen 12/07/20 Time Seen by a Provider: 11:30 Attending Physician Neelam Lopez David F MD Referring Physician Date of Admission Dec 06, 2020 at 20:23 Home Medications & Allergies Home Medications Reviewed patient Home Medication Reconciliation performed by pharmacy medication reconciliations senior engineering technician and/or nursing. Patients Allergies have been reviewed. Allergies Allergies Coded Allergies No Known Drug Allergies (Daslgeacwt29/26/13) Past Zefybls-Ylocom-Upwnuz Hx Patient Social History Marrital Status: single Employed/Student: unemployed Tobacco Use?: Yes Tobacco type used: Cigarettes Smoking Status: Current Everyday Smoker Use of E-Cig and/or Vaping dev: No Substance use?: No Alcohol Use?: Yes Alcohol type: Beer Alcohol Frequency: Daily Pt feels they are or have been: No Immunizations Up To Date First/Initial COVID19 Vaccinat: September 2020 Second COVID19 Vaccination Ted: September 2020 Tetanus Booster (TDap): Unknown Hepatitis A: Yes Hepatitis B: Yes Seasonal Allergies Seasonal Allergies: No Current Status Advance Directives: No Communicates: Verbally Primary Language: [place] Preferred Spoken Language: [place] Is interpretation needed?: No Implanted or Applied Medical D: None Past Medical History Asthma High Cholesterol, Hypertension Neuropathy Sexually Transmitted Disease: No HIV/AIDS: No Arthritis Diabetes, Insulin dep Blood Disorders: No Adverse Reaction/Blood Tranf: No Type II Diabetes with Neuropathy Medical Non-compliance Erectile Dysfunction Mixex Hyperlipidemia Osteoarthritis Hypertension Anxiety and Depression Gout Seasonal Allergies Tobacco Abuse Porokeratosis Past Surgical History: None Family Medical History No Pertinent Family Hx Review of Systems Constitutional: see HPI, malaise, weakness Physical Exam Physical Exam Vital Signs Vital Signs - First Documented 12/06/20 18:55 Temp 36.8 Pulse 89 Resp 16 B/P (MAP) 98/63 (75) Pulse Ox 99 O2 Delivery Room Air Capillary Refill : Less Than 3 Seconds Height, Weight, BMI Height: 5'8.00" Weight: 153lbs. 1.0oz. 69.754408he; 24.64 BMI Method:Stated General Appearance: No Apparent Distress, WD/WN, Chronically ill Eyes: Bilateral Eye Normal Inspection, Bilateral Eye PERRL, Bilateral Eye EOMI HEENT: PERRL/EOMI, TMs Normal Neck: Full Range of Motion, Normal Inspection Respiratory: Lungs Clear, Normal Breath Sounds, No Accessory Muscle Use, No Respiratory Distress, Other (Lower lung collado are clear but during initial exam he has some intermittent inspiratory stridor which is forced and goes away during conversation ) Cardiovascular: Regular Rate, Rhythm, Normal Peripheral Pulses Gastrointestinal: Normal Bowel Sounds, Non Tender, Soft Back: Normal Inspection, No CVA Tenderness, No Vertebral Tenderness Extremity: Normal Capillary Refill, Normal Inspection Neurologic/Psychiatric: Alert, Oriented x3 Skin: Normal Color, Warm/Dry Lymphatic: No Adenopathy Results Results/Procedures Labs Laboratory Tests 12/06/20 19:17 12/07/20 05:19 12/08/20 04:30 Patient resulted labs reviewed. Short Stay Diagnosis Discharge Diagnosis-Short Stay Admission Diagnosis Assessment: Acute kidney injury Severe hyperglycemia due to noncompliance with insulin Hypertension Hyperlipidemia Asthma Current smoker Final Discharge Diagnosis Assessment: Acute kidney injury Severe hyperglycemia due to noncompliance with insulin Hypertension Hyperlipidemia Asthma Current smoker Conclusion Plan Supportive care IV fluids Insulin Diagnosis/Problems Diagnosis/Problems (1) RUDI (acute kidney injury) Status: Acute (2) Type 2 diabetes mellitus Status: Chronic NEELAM LOPEZ DO Dec 07, 2020 06:41
[2020-12-07 06:42] LABS: BILIRUBIN,TOTAL 0.3 MG/DL (0.1-1.0)
[2020-12-07 06:46] LABS: BILIRUBIN,DIRECT 0.1 MG/DL (0.0-0.3); BILIRUBIN,INDIRECT 0.2 MG/DL
[2020-12-07] MEDS: LACTATED RINGERS 1,000 ML IV SCH ×3 (06:51→17:16)
[2020-12-07] MEDS: inSUlin ASPART (NovoLOG) 1 UNIT/0.01 ML (CHARGE PER UNIT) SC SCH ×4 (06:52→21:35)
[2020-12-07] MEDS: SOD POLYSTERENE 15 GM/60 ML (KAYEXALATE) UNIT DOSE PO SCH ×2 (07:42→21:34)
[2020-12-08] MEDS: LACTATED RINGERS 1,000 ML IV SCH ×2 (00:48→10:10)
[2020-12-08 03:45] VITALS: BP 137/80
[2020-12-08 05:19] LABS: BASOPHILS % (AUTO) 0 % (0-10); EOSINOPHILS % (AUTO) 1 % (0-10); HEMATOCRIT 30 % (40-54); HEMOGLOBIN 10.1 g/dL (13.3-17.7); LYMPHOCYTES # (AUTO) 1.7 10^3/uL (1.0-4.0); LYMPHOCYTES % (AUTO) 50 % (12-44); MEAN CORPUSCULAR HEMOGLOBIN 37 pg (25-34); MEAN CORPUSCULAR HGB CONC 33 g/dL (32-36); MEAN CORPUSCULAR VOLUME 111 fL (80-99); MEAN PLATELET VOLUME 10.3 fL (9.0-12.2); MONOCYTES # (AUTO) 0.3 10^3/uL (0.0-1.0); MONOCYTES % (AUTO) 9 % (0-12); NEUTROPHILS # (AUTO) 1.4 10^3/uL (1.8-7.8); NEUTROPHILS % (AUTO) 40 % (42-75); PLATELET COUNT 176 10^3/uL (130-400); WHITE BLOOD COUNT 3.4 10^3/uL (4.3-11.0)
[2020-12-08 05:46] LABS: ALBUMIN 3.8 GM/DL (3.2-4.5)
[2020-12-08 05:47] LABS: POTASSIUM 5.8 MMOL/L (3.6-5.0)
[2020-12-08 05:48] LABS: CALCIUM 9.3 MG/DL (8.5-10.1)
[2020-12-08 05:49] LABS: TOTAL PROTEIN 6.8 GM/DL (6.4-8.2)
[2020-12-08 05:51] LABS: BILIRUBIN,TOTAL 0.3 MG/DL (0.1-1.0)
[2020-12-08] MEDS: inSUlin ASPART (NovoLOG) 1 UNIT/0.01 ML (CHARGE PER UNIT) SC SCH ×2 (05:51→11:16)
[2020-12-08 05:53] LABS: CREATININE SERUM 1.21 MG/DL (0.60-1.30)
[2020-12-08] MEDS ORDERED: SOD POLYSTERENE 15 GM/60 ML (KAYEXALATE) UNIT DOSE PO NR (07:15)
[2020-12-08 08:00] VITALS: BP 129/76
[2020-12-08] MEDS: SOD POLYSTERENE 15 GM/60 ML (KAYEXALATE) UNIT DOSE PO SCH (10:00)
[2020-12-08 11:09] VITALS: BP 134/81
[2020-12-08] MEDS ORDERED: INSU100I29 SQ (11:17)
[2020-12-08] MEDS ORDERED: INSU500I SQ (11:17)
--- NOTE | 2020-12-08 11:18 | Discharge Summary ---
Discharge Summary Hospital Course Was the Problem List Reviewed?: Yes Problems/Dx: (1) RUDI (acute kidney injury) Status: Acute (2) Type 2 diabetes mellitus Status: Chronic Hospital Course Date of Admission: Dec 06, 2020 at 20:23 Admission Diagnosis : Family Physician/Provider: Russell Friedman MD Date of Discharge: 12/08/20 Discharge Diagnosis: Acute kidney injury, diabetes mellitus insulin requiring, noncompliance, smoker, hypertension, hyperlipidemia Hospital Course: Patient short hospital course he was admitted for IV fluids and insulin regimen his kidneys ultimately returned back to 1.2 diabetes was much more controlled patient was assessed to be stable for discharge. Labs and Pending Lab Test: Laboratory Tests 12/07/20 12:47: Glucometer 134H 12/07/20 15:18: Glucometer 250H 12/07/20 20:37: Glucometer 353H 12/08/20 04:30: White Blood Count 3.4L, Red Blood Count 2.73L, Hemoglobin 10.1L, Hematocrit 30L, Mean Corpuscular Volume 111H, Mean Corpuscular Hemoglobin 37H, Mean Corpuscular Hemoglobin Concent 33, Red Cell Distribution Width 12.6, Platelet Count 176, Mean Platelet Volume 10.3, Immature Granulocyte % (Auto) 0, Neutrophils (%) (Auto) 40L, Lymphocytes (%) (Auto) 50H, Monocytes (%) (Auto) 9, Eosinophils (%) (Auto) 1, Basophils (%) (Auto) 0, Neutrophils # (Auto) 1.4L, Lymphocytes # (Auto) 1.7, Monocytes # (Auto) 0.3, Eosinophils # (Auto) 0.0, Basophils # (Auto) 0.0, Immature Granulocyte # (Auto) 0.0, Sodium Level 136, Potassium Level 5.8H, Chloride Level 105, Carbon Dioxide Level 24, Anion Gap 7, Blood Urea Nitrogen 25H, Creatinine 1.21, Estimat Glomerular Filtration Rate 77, BUN/Creatinine Ratio 21, Glucose Level 280H, Calcium Level 9.3, Corrected Calcium 9.5, Total Bilirubin 0.3, Aspartate Amino Transf (AST/SGOT) 18, Alanine Aminotransferase (ALT/SGPT) 18, Alkaline Phosphatase 84, Total Protein 6.8, Albumin 3.8 12/08/20 05:33: Glucometer 255H 12/08/20 11:08: Glucometer 262H Home Meds Active Reported Gabapentin 300 Mg Capsule 300 Mg PO HS Simvastatin 20 Mg Tablet 20 Mg PO DAILY Glipizide Xl (Glipizide) 10 Mg Tab.er.24 10 Mg PO DAILY Protonix (Pantoprazole Sodium) 40 Mg Tablet.dr 40 Mg PO DAILY PRN Metformin HCl ER (Metformin HCl) 500 Mg Tab.er.24h 500 Mg PO DAILY Levemir Flextouch (Insulin Detemir) 100 Unit/1 Ml Insuln.pen 30 Unit SQ DAILY PRN Zoloft (Sertraline HCl) 50 Mg Tablet 50 Mg PO DAILY Losartan Potassium 25 Mg Tablet 12.5 Mg PO DAILY TAKES 1/2 (25MG) TABLET Assessment/Pt Instructions [facility] in 1 week Discharge Planning: <30 minutes discharge planning Discharge Physical Examination Vital Signs Vital Signs Date Time Temp Pulse Resp B/P (MAP) Pulse Ox O2 Delivery O2 Flow Rate FiO2 12/08/20 11:09 35.9 63 20 134/81 (98) 97 Room Air General Appearance: No Apparent Distress, WD/WN, Chronically ill Allergies: Coded Allergies: No Known Drug Allergies (Unverified , 02/04/13) Discharge Summary Date of Admission Dec 06, 2020 at 20:23 Date of Discharge Discharge Date: Dec 08, 2020 Admission Diagnosis Assessment: Acute kidney injury Severe hyperglycemia due to noncompliance with insulin Hypertension Hyperlipidemia Asthma Current smoker Discharge Diagnosis Supportive care IV fluids Insulin (1) RUDI (acute kidney injury) Status: Acute (2) Type 2 diabetes mellitus Status: Chronic LUIS VELEZ DO Dec 08, 2020 11:18
[2020-12-08 13:00] VITALS: BP 134/81
== END 2020-12-08 13:30 | disposition home or self-care (01) | DRG 684 ==
LOC: ER 18:37 → EDUNIT# 18:37 → 4TH 20:23
PROVIDERS: ADMIT Internal Medicine; ATTEND Internal Medicine
DX: N17.9 Acute kidney failure, unspecified (principal); E11.65 Type 2 diabetes mellitus with hyperglycemia; E11.40 Type 2 diabetes mellitus with diabetic neuropathy, unspecified; E78.2 Mixed hyperlipidemia; I10 Essential (primary) hypertension; J45.909 Unspecified asthma, uncomplicated; F41.9 Anxiety disorder, unspecified; F32.9 Major depressive disorder, single episode, unspecified; F17.210 Nicotine dependence, cigarettes, uncomplicated; Z79.899 Other long term (current) drug therapy; Z79.4 Long term (current) use of insulin; Z91.14 Patient's other noncompliance with medication regimen; Z20.822 Contact with and (suspected) exposure to COVID-19
CPT/HCPCS: 36415; 71045; 80048; 80053; 80076; 81000; 82010; 82947; 85025; 87636

== ENCOUNTER 2021-05-12 19:00 | Emergency (ER) | payer MEDICAID, OTHER ==
[~2021-05-12] VITALS: Ht 173 cm; Wt 73.0 kg
[~2021-05-12 19:00] MED LIST changes: +CYCL10TA25 PO; -CYCL10TA9 PO; +INSU500I SQ
[2021-05-12 20:05] VITALS: BP 163/99
--- NOTE | 2021-05-12 20:29 | ED Lower Extremity ---
General Chief Complaint: Lower Extremity Stated Complaint: R FOOT PAIN Nursing Triage Note: PT AMB TO ED BY POV FROM WORK WITH C/O R FOOT PAIN. PT REPORTS PAIN IN BOTTOM LATERAL PORTION OF R FOOT THAT BEGAN THIS MORNING WHEN HE WOKE UP, DENIES INJURY. NO SWELLING, SORES, EDEMA NOTED. CAP REFIL <3 SEC, NO MOTOR/SENSORY DEFICITS NOTED. Source: patient Exam Limitations: no limitations History of Present Illness Date Seen by Provider: May 12, 2021 Time Seen by Provider: 20:03 Initial Comments Patient to the ER by private conveyance from home with chief complaint that the past couple days it has progressively worsening pain after waking up in his right foot and the base of his foot. Worse with stretching. No trauma or falls. 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 Is never had problems with his foot before. He is diabetic. He follows [facility]. Allergies and Home Medications Allergies Coded Allergies: No Known Drug Allergies (Unverified , 02/04/13) Patient Home Medication List Home Medication List Reviewed: Yes Gabapentin (Gabapentin) 300 Mg Capsule, 300 MG PO HS, (Reported) Entered as Reported by: JAEL LOPEZ on 01/13/18 1040 Glipizide (Glipizide Xl) 10 Mg Tab.er.24, 10 MG PO DAILY, (Reported) Entered as Reported by: JAEL LOPEZ on 01/13/18 1040 Insulin Detemir (Levemir Flextouch) 100 Unit/1 Ml Insuln.pen, 25 UNIT SQ BID PRN for BLOOD SUGAR Prescribed by: LUIS VELEZ on 12/08/20 1117 Insulin Regular, Human (Humulin R U-500 Kwikpen) 500 Unit/1 Ml Insuln.pen, 12 UNIT SQ AC Prescribed by: LUIS VELEZ on 12/08/20 1117 Pantoprazole Sodium (Protonix) 40 Mg Tablet.dr, 40 MG PO DAILY PRN for HEARTBURN, (Reported) Entered as Reported by: JAEL LOPEZ on 01/13/18 1030 Sertraline HCl (Zoloft) 50 Mg Tablet, 50 MG PO DAILY, (Reported) Entered as Reported by: JAEL LOPEZ on 01/13/18 1019 Simvastatin (Simvastatin) 20 Mg Tablet, 20 MG PO DAILY, (Reported) Entered as Reported by: JAEL LOPEZ on 01/13/18 1040 Review of Systems Constitutional: No chills, No diaphoresis EENTM: No ear discharge, No ear pain, No blurred vision Respiratory: No cough, No short of breath All Other Systems Reviewed Negative Unless Noted: Yes Past Qimwsgp-Qebldm-Igccka Hx Patient Social History Tobacco Use?: Yes Tobacco type used: Cigarettes Smoking Status: Current Everyday Smoker Use of E-Cig and/or Vaping dev: No Substance use?: No Alcohol Use?: Yes Alcohol type: Beer Alcohol Frequency: Daily Pt feels they are or have been: No Immunizations Up To Date Tetanus Booster (TDap): Unknown Influenza Vaccine Up-to-Date: No; Not Current First/Initial COVID19 Vaccinat: September 2020 Second COVID19 Vaccination Ted: September 2020 Third COVID19 Vaccination Date: 2020 COVID19 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: [employer] Seasonal Allergies Seasonal Allergies: No Past Medical History Surgery/Hospitalization HX: DM 2 Surgeries: No Respiratory: Yes Asthma Cardiac: No High Cholesterol, Hypertension Neurological: Yes (NEUROPATHY IN HANDS AND FEET) Neuropathy Reproductive Disorders: No Sexually Transmitted Disease: No HIV/AIDS: No Genitourinary: No Gastrointestinal: No Musculoskeletal: Yes (R knee) Arthritis Endocrine: Yes Diabetes, Insulin dep HEENT: No Cancer: No Psychosocial: No Integumentary: No Blood Disorders: No Adverse Reaction/Blood Tranf: No Family Medical History No Pertinent Family Hx Physical Exam Vital Signs Vital Signs - First Documented 05/12/21 20:05 Temp 36.8 Pulse 82 Resp 18 B/P (MAP) 163/99 (120) Pulse Ox 100 O2 Delivery Room Air Capillary Refill : Less Than 3 Seconds Height, Weight, BMI Height: 5'8.00" Weight: 153lbs. 1.0oz. 69.485517yk; 24.00 BMI Method:Stated General Appearance: WD/WN, no apparent distress HEENT: PERRL/EOMI, pharynx normal Cardiovascular: normal peripheral pulses, regular rate, rhythm Respiratory: no respiratory distress, no accessory muscle use Feet: left foot non-tender; bilateral foot normal inspection, bilateral foot normal range of motion; left foot no evidence of injury; right foot soft tissue tenderness (Plantar fascia tender to palpation and stretching) Neurologic/Psychiatric: no motor/sensory deficits, alert, normal mood/affect, oriented x 3 Progress/Results/Core Measures Results/Orders Vital Signs/I&O 05/12/21 20:05 Temp 36.8 Pulse 82 Resp 18 B/P (MAP) 163/99 (120) Pulse Ox 100 O2 Delivery Room Air Blood Pressure Mean: 120 Progress Progress Note : Time: 20:26 Progress Note Plantar fasciitis recommendations. 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 Decision time for Depature: 20:27 Referrals: ALFREDITO MCINTYRE MD (PCP/Family) Primary Care Physician CORTNEY VASQUEZ DPM Patient Instructions: Plantar Fasciitis Exercises, Plantar Fasciotomy (DC) Add. Discharge Instructions: Roll a tennis ball or a can of soup under your foot multiple times a day to help stretch out your foot. Review the handout on exercises for your foot. Naproxen 500 mg twice a day for the next 1 to 2 weeks to reduce inflammation and pain in your foot. Tylenol 1000 mg every 8 hours as necessary for breakthrough pain. If you not seeing improvement in 1 to 2 weeks then follow-up with Dr. Vasquez, podiatry for continued management. All discharge instructions reviewed with patient and/or family. Voiced understanding. Scripts Naproxen (Naprosyn) 500 Mg Tablet 500 MG PO BID for 14 Days, #30 TAB 0 Refills Prov: MICHEL CHAVEZ 05/12/21 Work/School Note: Work Release Form Date Seen in the Emergency Department: May 12, 2021 Return to Work: May 13, 2021 Restrictions: No Restrictions Other Restrictions Listed Below: none Copy Copies To 1: CORTNEY VASQUEZ DPM, TITUS J May 12, 2021 20:29
[2021-05-12] MEDS ORDERED: NAPR-1071 PO (20:30)
== END 2021-05-12 20:46 | disposition home or self-care (01) ==
LOC: EDUNIT# 19:00 → ER 19:07
DX: M72.2 Plantar fascial fibromatosis (principal); J45.909 Unspecified asthma, uncomplicated; I10 Essential (primary) hypertension; E78.00 Pure hypercholesterolemia, unspecified; E11.9 Type 2 diabetes mellitus without complications; F17.210 Nicotine dependence, cigarettes, uncomplicated; Z79.4 Long term (current) use of insulin; Z79.899 Other long term (current) drug therapy
CPT/HCPCS: 99281

== ENCOUNTER 2021-09-11 18:01 | Inpatient (IN) | payer SELFPAY ==
[~2021-09-11] VITALS: Ht 172.7 cm; Wt 73.5 kg
[~2021-09-11 18:01] MED LIST changes: +NAPR-1071 PO
[2021-09-11] MEDS ORDERED: NS IV 1000 ML 1,000 ML IV SCH ×3 (18:30→21:15)
[2021-09-11] MEDS ORDERED: inSUlin (REGULAR) HUMAN 1 UNIT/0.01 ML (CHARGE PER UNIT) IV ONE (18:30)
[2021-09-11 18:38] LABS: BASOPHILS % (AUTO) 0 % (0-10); EOSINOPHILS % (AUTO) 0 % (0-10); HEMATOCRIT 36 % (40-54); HEMOGLOBIN 12.3 g/dL (13.3-17.7); LYMPHOCYTES # (AUTO) 2.3 10^3/uL (1.0-4.0); LYMPHOCYTES % (AUTO) 44 % (12-44); MEAN CORPUSCULAR HEMOGLOBIN 38 pg (25-34); MEAN CORPUSCULAR HGB CONC 35 g/dL (32-36); MEAN CORPUSCULAR VOLUME 110 fL (80-99); MEAN PLATELET VOLUME 10.2 fL (9.0-12.2); MONOCYTES # (AUTO) 0.6 10^3/uL (0.0-1.0); MONOCYTES % (AUTO) 11 % (0-12); NEUTROPHILS # (AUTO) 2.3 10^3/uL (1.8-7.8); NEUTROPHILS % (AUTO) 45 % (42-75); PLATELET COUNT 195 10^3/uL (130-400); WHITE BLOOD COUNT 5.2 10^3/uL (4.3-11.0)
[2021-09-11 18:38] LABS: ABG BASE EXCESS 7.5 MMOL/L (-2.5-2.5); ABG OXYGEN SATURATION 87 % (94-100); ABG PCO2 55 MMHG (35-45); ABG PH 7.39 (7.37-7.43); ABG PO2 58 MMHG (79-93); ABG TCO2 33.9 MMOL/L (21.0-31.0)
[2021-09-11 18:39] LABS: PATIENT TEMP 37.7; VENTILATOR NO
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
[2021-09-11 18:45] LABS: ALBUMIN 4.2 GM/DL (3.2-4.5)
[2021-09-11 18:46] LABS: POTASSIUM 4.5 MMOL/L (3.6-5.0)
[2021-09-11 18:47] LABS: CALCIUM 9.5 MG/DL (8.5-10.1)
[2021-09-11 18:48] LABS: INR 0.9 (0.8-1.4); PROTHROMBIN TIME PATIENT 12.7 SEC (12.2-14.7); TOTAL PROTEIN 7.6 GM/DL (6.4-8.2)
[2021-09-11 18:50] LABS: BILIRUBIN,TOTAL 0.8 MG/DL (0.1-1.0)
[2021-09-11 18:52] LABS: CREATININE SERUM 3.08 MG/DL (0.60-1.30)
--- NOTE | 2021-09-11 19:09 | Diagnostic Imaging Report ---
INDICATION: Shortness of air FINDINGS: The lungs are clear. No failure, effusion or pneumothorax. IMPRESSION: Normal frontal chest Dictated by: Dictated on workstation # [id number]
[2021-09-11] MEDS ORDERED: ACETAMINOPHEN 500 MG TAB (TYLENOL) PO ONE (19:45)
[2021-09-11] MEDS ORDERED: diphenhydrAMINE 25 MG TAB (BENADRYL) PO PRN (21:15)
[2021-09-11] MEDS ORDERED: POTASSIUM CL 10MEQ/50ML IVPB 50 ML IV SCH (21:15)
[2021-09-11] MEDS ORDERED: ONDANSETRON 4 MG/2 ML (SDV) Z0FRAN IV PRN (21:15)
[2021-09-11] MEDS ORDERED: ONDANSETRON 4 MG (ZOFRAN) ORAL DISSOLVE TAB PO PRN (21:15)
[2021-09-11] MEDS ORDERED: MELATONIN 3 MG TABLET PO PRN (21:15)
[2021-09-11] MEDS ORDERED: LACTULOSE SYRUP 10GM/15ML (ENULOSE) 30ML UDC PO PRN (21:15)
[2021-09-11] MEDS ORDERED: morphine INJ 4 MG/ML 1 ML (VIAL/SYRINGE) IV PRN (21:15)
[2021-09-11] MEDS ORDERED: CALCIUM CARBONATE 500 MG (TUMS) TAB.CHEW PO PRN (21:15)
[2021-09-11] MEDS ORDERED: BISACODYL 10 MG SUPP (DULCOLAX) PR PRN (21:15)
[2021-09-11] MEDS ORDERED: diphenhydrAMINE 50 MG/ML INJ (BENADRYL) IVP PRN (21:15)
[2021-09-11] MEDS ORDERED: ACETAMINOPHEN 325 MG TABLET PO PRN (21:15)
[2021-09-11] MEDS ORDERED: ANTACID SUSP 30 ML UDC (MYLANTA) PO PRN (21:15)
[2021-09-11] MEDS ORDERED: MILK OF MAGNESIA 400 MG/5 ML 30 ML UDC PO PRN (21:15)
[2021-09-11] MEDS ORDERED: POTASSIUM CL 10MEQ/50ML IVPB 50 ML IV ONE (21:23)
[2021-09-11] MEDS ORDERED: NS IV 1000 ML 1,000 ML ONE (21:23)
[2021-09-11 21:28] LABS: BILIRUBIN,URINE NEGATIVE (NEGATIVE); CLARITY,URINE SL CLOUDY; COLOR,URINE YELLOW; GLUCOSE, URINE (UA) 3+ (NEGATIVE); KETONES,URINE NEGATIVE (NEGATIVE); LEUKOCYTE ESTERASE ,URINE NEGATIVE (NEGATIVE); NITRITE,URINE NEGATIVE (NEGATIVE); PH,URINE 5.5 (5-9); PROTEIN,URINE NEGATIVE (NEGATIVE)
[2021-09-11 21:44] LABS: BACTERIA,URINE MODERATE /HPF; RBC,URINE RARE /HPF; SQUAMOUS EPITHELIAL CELL,UR RARE /HPF; WBC,URINE 0-2 /HPF
[2021-09-11 22:11] LABS: POTASSIUM 4.2 MMOL/L (3.6-5.0)
[2021-09-11 22:12] LABS: CALCIUM 8.4 MG/DL (8.5-10.1)
[2021-09-11 22:16] LABS: CREATININE SERUM 2.38 MG/DL (0.60-1.30)
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
[2021-09-11] MEDS: 1/2 NS IV SOLUTION 1,000 ML IV SCH (22:30)
[2021-09-11 23:28] LABS: POTASSIUM 3.9 MMOL/L (3.6-5.0)
[2021-09-11 23:29] LABS: CALCIUM 8.2 MG/DL (8.5-10.1)
[2021-09-11 23:33] LABS: CREATININE SERUM 2.1 MG/DL (0.60-1.30)
[2021-09-11] MEDS: POTASSIUM CL 10MEQ/50ML IVPB 50 ML IV SCH (23:45)
[2021-09-12] MEDS ORDERED: LORazepam 1 MG (ATIVAN) TAB PO PRN ×2 (00:30→07:45)
[2021-09-12] MEDS ORDERED: ONDANSETRON 4 MG/2 ML (SDV) Z0FRAN IV PRN (00:30)
[2021-09-12] MEDS ORDERED: SENNA W/DOCUSATE (SENOKOT S) TABLET PO PRN ×2 (00:30→07:45)
[2021-09-12] MEDS ORDERED: ONDANSETRON 4 MG (ZOFRAN) ORAL DISSOLVE TAB SL PRN (00:30)
[2021-09-12] MEDS ORDERED: ANTACID SUSP 30 ML UDC (MYLANTA) PO PRN ×2 (00:30→07:45)
[2021-09-12] MEDS ORDERED: LORazepam INJ 2 MG/ML (ATIVAN) VIAL IM/IV PRN ×2 (00:30→07:45)
[2021-09-12] MEDS ORDERED: CEFEPIME INJECTION 1,000 MG in NS (IVPB) 50 ML IV SCH (00:30)
[2021-09-12] MEDS ORDERED: LORazepam INJ 2 MG/ML (ATIVAN) VIAL IV PRN ×2 (00:30→07:45)
[2021-09-12] MEDS ORDERED: NS (IVPB) 50 ML ONE (00:37)
[2021-09-12] MEDS ORDERED: CEFEPIME 1 GM/10 ML (MAXIPIME) VIAL ONE (00:37)
[2021-09-12] MEDS: CEFEPIME INJECTION 1,000 MG in NS (IVPB) 50 ML IV SCH ×3 (01:00→17:50)
[2021-09-12] MEDS: D5 1/2 NS 1000 ML IV SOLUTION 1,000 ML IV SCH ×2 (01:12→04:19)
[2021-09-12] MEDS: POTASSIUM CL 10MEQ/50ML IVPB 50 ML IV SCH ×4 (01:14→06:28)
[2021-09-12] MEDS: 1/2 NS IV SOLUTION 1,000 ML IV SCH ×2 (01:15→02:54)
[2021-09-12 03:17] LABS: BASOPHILS % (AUTO) 0 % (0-10); EOSINOPHILS % (AUTO) 1 % (0-10); HEMATOCRIT 30 % (40-54); HEMOGLOBIN 10.4 g/dL (13.3-17.7); LYMPHOCYTES # (AUTO) 1.7 10^3/uL (1.0-4.0); LYMPHOCYTES % (AUTO) 43 % (12-44); MEAN CORPUSCULAR HEMOGLOBIN 39 pg (25-34); MEAN CORPUSCULAR HGB CONC 35 g/dL (32-36); MEAN CORPUSCULAR VOLUME 112 fL (80-99); MEAN PLATELET VOLUME 9.9 fL (9.0-12.2); MONOCYTES # (AUTO) 0.5 10^3/uL (0.0-1.0); MONOCYTES % (AUTO) 11 % (0-12); NEUTROPHILS # (AUTO) 1.8 10^3/uL (1.8-7.8); NEUTROPHILS % (AUTO) 45 % (42-75); PLATELET COUNT 144 10^3/uL (130-400); WHITE BLOOD COUNT 4.1 10^3/uL (4.3-11.0)
[2021-09-12 03:34] LABS: CALCIUM 8.3 MG/DL (8.5-10.1)
[2021-09-12 03:39] LABS: CREATININE SERUM 1.46 MG/DL (0.60-1.30); PHOSPHORUS 3.8 MG/DL (2.3-4.7)
[2021-09-12 03:41] LABS: MAGNESIUM 2.5 MG/DL (1.6-2.4)
[2021-09-12 04:13] LABS: ELLIPT/OVALOCYTES SLIGHT; LYMPHOCYTES % (MANUAL) 46 %; MONOCYTES % (MANUAL) 6 %; NEUTROPHILS % (MANUAL) 48 %; POLYCHROMASIA SLIGHT
[2021-09-12] MEDS ORDERED: KCL 20 MEQ TAB (K-DUR) PO SCH (06:00)
[2021-09-12] MEDS ORDERED: POTASSIUM CL 10MEQ/50ML IVPB 50 ML IV SCH (06:00)
[2021-09-12] MEDS ORDERED: MAGNESIUM 1 GM/100 ML IVPB 100 ML IV SCH (06:00)
--- NOTE | 2021-09-12 06:15 | History & Physical-Hospitalist ---
History of Present Illness HPI/Chief Complaint CC: DKA HPI: This is a 51 yr old male. He has a past medical history of type 2 diabetes. He came in with SOB and was found to be in DKA as a type 2 diabetic. He was placed on an insulin drip that has been discontinued. IV antibiotics started. Cefepime was started for tooth infection. He will be moved to the 4th floor. Ultram 100 mg q6 hours ordered. Source: patient Exam Limitations: no limitations Date Seen 09/12/21 Time Seen by a Provider: 10:30 Attending Physician Russell Friedman MD PCP Admitting Physician: Neelam Lopez DO Attending Physician: Neelam Lopez DO Referring Physician Date of Admission Sep 11, 2021 at 19:38 Home Medications & Allergies Home Medications Reviewed patient Home Medication Reconciliation performed by pharmacy medication reconciliations agronomy technician and/or nursing. Patients Allergies have been reviewed. Allergies Allergies Coded Allergies No Known Drug Allergies (Imxftgcges40/26/13) Past Erwuyqy-Apeszk-Kofsbu Hx Patient Social History Marrital Status: single Employed/Student: unemployed Tobacco Use?: Yes Tobacco type used: Cigarettes Smoking Status: Current Everyday Smoker Smokeless Tobacco Frequency: Current Everyday User Use of E-Cig and/or Vaping dev: No Substance use?: No Alcohol Use?: Yes Alcohol type: Beer Alcohol Frequency: Daily Pt feels they are or have been: No Immunizations Up To Date First/Initial COVID19 Vaccinat: 2020 Second COVID19 Vaccination Ted: September 2020 Tetanus Booster (TDap): Less Than 5 Years Hepatitis A: Yes Hepatitis B: Yes Seasonal Allergies Seasonal Allergies: No Current Status Advance Directives: No Communicates: Verbally Primary Language: Swedish Preferred Spoken Language: Swedish Is interpretation needed?: No Sensory deficits: Vision impairment, Hearing impairment Implanted or Applied Medical D: None Past Medical History Asthma High Cholesterol, Hypertension Neuropathy Sexually Transmitted Disease: No HIV/AIDS: No Arthritis Diabetes, Insulin dep Blood Disorders: No Adverse Reaction/Blood Tranf: No Type II Diabetes with Neuropathy Medical Non-compliance Erectile Dysfunction Mixex Hyperlipidemia Osteoarthritis Hypertension Anxiety and Depression Gout Seasonal Allergies Tobacco Abuse Porokeratosis Past Surgical History: None Family Medical History No Pertinent Family Hx Review of Systems Constitutional: see HPI, malaise, weakness EENTM: no symptoms reported Respiratory: no symptoms reported Cardiovascular: no symptoms reported Gastrointestinal: no symptoms reported Genitourinary: no symptoms reported Musculoskeletal: no symptoms reported Skin: no symptoms reported Psychiatric/Neurological: No Symptoms Reported All Other Systems Reviewed Negative Unless Noted: Yes Physical Exam Physical Exam Vital Signs Vital Signs - First Documented 09/11/21 09/11/21 18:05 18:12 Temp 36.3 Pulse 96 Resp 12 B/P (MAP) 105/69 (81) Pulse Ox 99 O2 Delivery Room Air Capillary Refill : Height, Weight, BMI Height: 5'8.00" Weight: 153lbs. 1.0oz. 69.029792sq; 25.64 BMI Method:Stated General Appearance: No Apparent Distress Eyes: Right Eye Normal Inspection, Right Eye PERRL HEENT: PERRL/EOMI, Pharynx Normal, Moist Mucous Membranes, Other (left facial edema ) Neck: Full Range of Motion, Normal Inspection, Non Tender Respiratory: Chest Non Tender, Lungs Clear, Normal Breath Sounds, No Accessory Muscle Use, No Respiratory Distress Cardiovascular: Regular Rate, Rhythm, No Edema, No Gallop, No JVD, No Murmur, Normal Peripheral Pulses Gastrointestinal: Normal Bowel Sounds, No Organomegaly, No Pulsatile Mass, Non Tender, Soft Back: Normal Inspection, No CVA Tenderness, No Vertebral Tenderness Extremity: Normal Capillary Refill, Normal Inspection, Normal Range of Motion, Non Tender, No Calf Tenderness, No Pedal Edema Neurologic/Psychiatric: Alert, Oriented x3, No Motor/Sensory Deficits, Normal Mood/Affect Skin: Normal Color, Warm/Dry Lymphatic: No Adenopathy Results Results/Procedures Labs Laboratory Tests 09/11/21 18:20 09/11/21 21:25 09/11/21 22:54 09/12/21 03:09 09/12/21 07:10 Patient resulted labs reviewed. Assessment/Plan Admission Diagnosis Assessment: DKA Left tooth abscess HTN HLP RUDI Plan: Move to 4th Insulin SQ IV abx Admission Status: Inpatient Order (span 2 midnights) Reason for Inpatient Admission: dka Diagnosis/Problems Diagnosis/Problems (1) DKA, type 2 Status: Acute Qualifiers: Diabetes mellitus complication detail: without coma Qualified Codes: E11.10 - Type 2 diabetes mellitus with ketoacidosis without coma NEELAM LOPEZ DO Sep 12, 2021 06:15
[2021-09-12] MEDS: THIAMINE 100 MG (VITAMIN B-1) TAB PO SCH (06:21)
[2021-09-12] MEDS: MULTIVIT W/MINERALS TAB (THERAGRAN M) PO SCH (06:21)
[2021-09-12 07:37] LABS: CALCIUM 8.5 MG/DL (8.5-10.1); CREATININE SERUM 1.11 MG/DL (0.60-1.30); POTASSIUM 4.2 MMOL/L (3.6-5.0)
[2021-09-12] MEDS ORDERED: D5 1/2 NS 1000 ML IV SOLUTION 1,000 ML IV PRN (07:45)
[2021-09-12] MEDS ORDERED: 1/2 NS IV SOLUTION 1,000 ML IV PRN (07:45)
--- NOTE | 2021-09-12 08:12 | Tele-ICU Progress Note ---
Subjective Date Seen by a Provider: Sep 12, 2021 Subjective/Events-last exam (Tele-ICU Physician , Progress Note ) Available chart/ vitals / labs / Images reviewed Video assessment done using teleICU camera, rest of exam as per RN Discussed with RN , EXAM PER RN Events overnight : Afebrile FiO2 - ra I/O = ++ Drips: d51/2 250 Pressors: , hemodynamically stable Hospital course: (09/11) 51yM Admit DKA, RUDI, elev trop A/P DKA ( , recent med change from trulicity to victoza 3 days ago due to cost , po ssible infection ) -insulin drip stopped this am continue to monitor decrease hydration rate. RUDI -resolved Leukocytosis - empiric ABX given , sourse ?/ - as per bedside Elv trop - stable , no CP Nutrition: to start today Analgesia: Anxiety/ delirium VTE Prophylaxis: hepp sq Stress Ulcer Prophylaxis: Plans in collaoration with bedside consultants and IM MDs. Discussed with RN to reach out if any questions or concerns A total of 20minutes of critical care time was devoted to this patient today, required to treat and/or prevent further deterioration of critical care condition ( as above) . Sepsis Event Evaluation Height, Weight, BMI Height: 5'8.00" Weight: 153lbs. 1.0oz. 69.357768vq; 25.64 BMI Method:Stated Focused Exam Lactate Level 09/11/21 18:20: Lactic Acid Level 3.14*H 09/11/21 22:54: Lactic Acid Level 1.48 Exam Exam Patient acknowledged, consented, and participated in this virtual visit which was conducted using real time audio/video Vital Signs Date Time Temp Pulse Resp B/P (MAP) Pulse Ox O2 Delivery O2 Flow Rate FiO2 09/12/21 08:00 74 10 136/90 99 Nasal Cannula 2.00 09/12/21 07:00 76 10 132/82 100 Nasal Cannula 2.00 09/12/21 07:00 79 09/12/21 06:47 Nasal Cannula 2.00 09/12/21 06:15 67 10 100/60 100 Nasal Cannula 2.00 09/12/21 05:00 76 13 108/64 100 Nasal Cannula 2.00 09/12/21 04:00 75 16 105/66 99 Nasal Cannula 2.00 09/12/21 04:00 96 Nasal Cannula 2.00 09/12/21 04:00 36.6 Nasal Cannula 2.00 09/12/21 03:00 78 15 109/75 95 Nasal Cannula 2.00 09/12/21 02:00 80 11 110/74 96 Nasal Cannula 2.00 09/12/21 01:05 98 Nasal Cannula 1.00 09/12/21 01:03 78 13 99/54 98 Nasal Cannula 2.00 09/12/21 01:00 Nasal Cannula 2.00 09/12/21 01:00 78 09/12/21 00:00 81 13 110/66 97 Nasal Cannula 2.00 09/12/21 00:00 36.2 Nasal Cannula 2.00 09/11/21 23:04 96 Room Air 09/11/21 23:00 87 15 103/61 96 Room Air 09/11/21 22:00 86 14 101/57 95 Room Air 09/11/21 21:45 83 15 108/68 94 Room Air 09/11/21 21:30 86 12 110/74 97 Room Air 09/11/21 21:15 85 95/58 Room Air 09/11/21 21:00 80 114/69 Room Air 09/11/21 20:54 88 19 115/71 98 Room Air 09/11/21 20:54 88 09/11/21 20:49 84 14 107/61 96 Room Air 09/11/21 20:45 36.4 Room Air 09/11/21 20:45 96 Room Air 09/11/21 20:45 36.4 09/11/21 18:12 36.3 96 12 105/69 (81) 99 09/11/21 18:05 Room Air I & O 09/12/21 07:00 Intake Total 5650 ml Output Total 1900 ml Balance 3750 ml Height & Weight Height: 5'8.00" Weight: 153lbs. 1.0oz. 69.224054rg; 25.64 BMI Method:Stated General Appearance: No Apparent Distress Gastrointestinal: normal bowel sounds, non tender, soft Results Lab Laboratory Tests 09/11/21 18:20 09/11/21 21:25 09/11/21 22:54 09/12/21 03:09 09/12/21 07:10 Assessment/Plan Assessment/Plan 1 ERIKA HARRELL MD Sep 12, 2021 08:12
[2021-09-12] MEDS ORDERED: D5 1/2 NS 1000 ML IV SOLUTION 1,000 ML IV SCH (08:15)
[2021-09-12] MEDS: PANTOPRAZOLE 40 MG (PROTONIX) VIAL IV SCH (08:56)
[2021-09-12] MEDS: THIAMINE INJECTION 100 MG, FOLIC ACID INJECTION 1 MG, MAGNESIUM SULFATE 2 GM, VITAMIN M... IV SCH ×5 (08:56)
[2021-09-12] MEDS: DOCUSATE SODIUM 100 MG (COLACE) CAP PO SCH ×2 (08:57→21:26)
[2021-09-12] MEDS: FOLIC ACID 1 MG TAB PO SCH (08:57)
[2021-09-12] MEDS: ASPIRIN 81 MG CHEW (CHILDREN'S ASA) PO SCH (08:57)
[2021-09-12] MEDS: MAGNESIUM OXIDE (MAG-OX)400 MG TAB PO SCH ×2 (08:57→21:26)
[2021-09-12] MEDS: SENNOSIDES 8.6 MG (SENOKOT) TAB PO SCH ×2 (08:58→21:26)
--- NOTE | 2021-09-12 10:38 | Consultation-Cardiology ---
HPI-Cardiology Cardiology Consultation: Date of Consultation 09/12/21 Time Seen by a Provider: 08:10 Date of Admission Attending Physician Russell Friedman MD Admitting Physician Admitting Physician: Neelam Velez DO Attending Physician: Neelam Velez DO Consulting Physician TAQUERIA ERIC MD, MA, FACP, FACC, [facility], CCDS Physician requesting consult: Dr Velez HPI: Chief Complaint: Reason for Card consult: Elevated troponin 51 yo man who had been noncompliant with his diabetes meds presented with nausea and vomiting and shortness of breath on 09/11/21. Diagnosed with DKA and admitted to Dr Velez's service. Was also in acu renal failure. Was also mildly hypoxic. Feels better now. No cp or palp or syncope. No swelling. Gen weakness and malaise are present Review of Systems-Cardiology Review of Systems Constitutional: As described under HPI Eyes: No vision change Ears/Nose/Throat: No nasal drainage, No recent hearing loss Respiratory: As described under HPI Cardiovascular: As described under HPI Gastrointestinal: As described under HPI Genitourinary: No dysuria, No hematuria Musculoskeletal: No back pain, No joint pain Skin: No rash, No ulcerations Psychiatric/Neurological: No seizure, No focal weakness, No syncope Hematologic: No bleeding abnormalities All Other Systems Reviewed Negative Unless Noted: Yes OVJ-Hwwvck-[place] Hx Patient Social History Smoking Status: Current Everyday Smoker 2nd Hand Smoke Exposure: Yes Have you traveled recently?: No Alcohol Use?: Yes Pt feels they are or have been: No Tobacco type used: Cigarettes Immunizations Up To Date Tetanus Booster (TDap): Unknown Past Medical History PMH As described under Assessment. Family Medical History Family Medical History: Reports h/o heart disease in mother (details not known) and h/o CVA in father Allergies and Home Medications Allergies Coded Allergies: No Known Drug Allergies (Unverified , 02/04/13) Patient Home Medication List Home Medication List Reviewed: Yes Gabapentin (Gabapentin) 300 Mg Capsule, 300 MG PO HS, (Reported) Entered as Reported by: JAEL LOPEZ on 01/13/18 1040 Glipizide (Glipizide Xl) 10 Mg Tab.er.24, 10 MG PO DAILY, (Reported) Entered as Reported by: JAEL LOPEZ on 01/13/18 1040 Insulin Detemir (Levemir Flextouch) 100 Unit/1 Ml Insuln.pen, 25 UNIT SQ BID PRN for BLOOD SUGAR Prescribed by: NEELAM VELEZ on 12/08/20 1117 Insulin Regular, Human (Humulin R U-500 Kwikpen) 500 Unit/1 Ml Insuln.pen, 12 UNIT SQ AC Prescribed by: NEELAM VELEZ on 12/08/20 1117 Naproxen (Naprosyn) 500 Mg Tablet, 500 MG PO BID Prescribed by: MICHEL CHAVEZ on 05/12/21 2030 Pantoprazole Sodium (Protonix) 40 Mg Tablet.dr, 40 MG PO DAILY PRN for HEARTBURN, (Reported) Entered as Reported by: JAEL LOPEZ on 01/13/18 1030 Sertraline HCl (Zoloft) 50 Mg Tablet, 50 MG PO DAILY, (Reported) Entered as Reported by: JAEL LOPEZ on 01/13/18 1019 Simvastatin (Simvastatin) 20 Mg Tablet, 20 MG PO DAILY, (Reported) Entered as Reported by: JAEL LOPEZ on 01/13/18 1040 Physical Exam-Cardiology Physical Exam Vital Signs/I&O 09/11/21 09/11/21 09/12/21 09/12/21 23:00 23:04 00:00 00:00 Temp 36.2 Pulse 87 81 Resp 15 13 B/P (MAP) 103/61 110/66 Pulse Ox 96 96 97 O2 Delivery Room Air Room Air Nasal Cannula Nasal Cannula O2 Flow Rate 2.00 2.00 09/12/21 09/12/21 09/12/21 09/12/21 01:00 01:00 01:03 01:05 Pulse 78 78 Resp 13 B/P (MAP) 99/54 Pulse Ox 98 98 O2 Delivery Nasal Cannula Nasal Cannula Nasal Cannula O2 Flow Rate 2.00 2.00 1.00 09/12/21 09/12/21 09/12/21 09/12/21 02:00 03:00 04:00 04:00 Temp 36.6 Pulse 80 78 Resp 11 15 B/P (MAP) 110/74 109/75 Pulse Ox 96 95 96 O2 Delivery Nasal Cannula Nasal Cannula Nasal Cannula Nasal Cannula O2 Flow Rate 2.00 2.00 2.00 2.00 09/12/21 09/12/21 09/12/21 09/12/21 04:00 05:00 06:15 06:47 Pulse 75 76 67 Resp 16 13 10 B/P (MAP) 105/66 108/64 100/60 Pulse Ox 99 100 100 O2 Delivery Nasal Cannula Nasal Cannula Nasal Cannula Nasal Cannula O2 Flow Rate 2.00 2.00 2.00 2.00 09/12/21 09/12/21 09/12/21 09/12/21 07:00 07:00 08:00 08:00 Temp 36.4 Pulse 79 76 74 Resp 10 10 B/P (MAP) 132/82 136/90 Pulse Ox 100 99 O2 Delivery Nasal Cannula Nasal Cannula O2 Flow Rate 2.00 2.00 09/12/21 09/12/21 09/12/21 08:00 09:00 10:00 Pulse 90 81 Resp 11 14 B/P (MAP) 116/73 122/73 Pulse Ox 100 100 100 O2 Delivery Room Air Nasal Cannula Nasal Cannula O2 Flow Rate 2.00 2.00 09/12/21 00:00 Intake Total 3200 ml Output Total 600 ml Balance 2600 ml Capillary Refill : Constitutional: AAO x 3, well-nourished HEENT: EOMI, hearing is well preserved; No xanthelasmas are seen Neck: carotid pulses are 2 + bilaterally, with good upstrokes Respiratory: No accessory muscle use; other (fair to good, bilateral air entry) Cardiovascular: regular rate-rhythm, S1 and S2, systolic murmur (soft CONSTANTINO at card base) Gastrointestinal: No tender; soft; No guarding, No rebound; audible bowel sounds Extremities: No clubbing, No cyanosis, No significant edema Neurologic/Psychiatric: oriented x 3, other (moves all limbs equally) Skin: No rash on exposed areas, No ulcerations on exposed areas Data Review Labs Laboratory Tests 09/11/21 18:09: Procalcitonin 0.08 09/11/21 18:12: Influenza Type A (RT-PCR) Not Detected, Influenza Type B (RT-PCR) Not Detected, SARS-CoV-2 RNA (RT-PCR) Not Detected 09/11/21 18:18: Glucometer 483*H 09/11/21 18:20: White Blood Count 5.2, Red Blood Count 3.24L, Hemoglobin 12.3L, Hematocrit 36L, Mean Corpuscular Volume 110H, Mean Corpuscular Hemoglobin 38H, Mean Corpuscular Hemoglobin Concent 35, Red Cell Distribution Width 12.0, Platelet Count 195, Mean Platelet Volume 10.2, Immature Granulocyte % (Auto) 0, Neutrophils (%) (Auto) 45, Lymphocytes (%) (Auto) 44, Monocytes (%) (Auto) 11, Eosinophils (%) (Auto) 0, Basophils (%) (Auto) 0, Neutrophils # (Auto) 2.3, Lymphocytes # (Auto) 2.3, Monocytes # (Auto) 0.6, Eosinophils # (Auto) 0.0, Basophils # (Auto) 0.0, Immature Granulocyte # (Auto) 0.0, Prothrombin Time 12.7, INR Comment 0.9, Activated Partial Thromboplast Time 27, Sodium Level 133L, Potassium Level 4.5, Chloride Level 86L, Carbon Dioxide Level 30, Anion Gap 17H, Blood Urea Nitrogen 39H, Creatinine 3.08H, Estimat Glomerular Filtration Rate 24, BUN/Creatinine Ratio 13, Glucose Level 490*H, Lactic Acid Level 3.14*H, Calcium Level 9.5, Corrected Calcium 9.3, Total Bilirubin 0.8, Aspartate Amino Transf (AST/SGOT) 22, Alanine Aminotransferase (ALT/SGPT) 18, Alkaline Phosphatase 69, Troponin I 0.046H, C-Reactive Protein High Sensitivity 2.13H, B-Type Natriuretic Peptide 58.5, Total Protein 7.6, Albumin 4.2, Beta-Hydroxybutyrate (Chem panel) 0.33H 09/11/21 18:30: Blood Gas Puncture Site UNK, Blood Gas Patient Temperature 37.7, Arterial Blood pH 7.39, Arterial Blood Partial Pressure CO2 55H, Arterial Blood Partial Pressure O2 58L, Arterial Blood HCO3 32H, Arterial Blood Total CO2 33.9H, Arterial Blood Oxygen Saturation 87L, Arterial Blood Base Excess 7.5H, Matteo Test UNK, Blood Gas Ventilator Setting NO, Blood Gas Inspired Oxygen N/A 09/11/21 19:25: Glucometer 387H 09/11/21 20:45: Urine Color YELLOW, Urine Clarity SL CLOUDY, Urine pH 5.5, Urine Specific [place] <=1.005, Urine Protein NEGATIVE, Urine Glucose (UA) 3+H, Urine Ketones NEGATIVE, Urine Nitrite NEGATIVE, Urine Bilirubin NEGATIVE, Urine Urobilinogen 1.0, Urine Leukocyte Esterase NEGATIVE, Urine RBC (Auto) NEGATIVE, Urine RBC RARE, Urine WBC 0-2, Urine Squamous Epithelial Cells RARE, Urine Crystals NONE, Urine Bacteria MODERATEH, Urine Casts PRESENT, Urine Hyaline Casts 10-25H, Urine Mucus SMALLH, Urine Culture Indicated CULTURE PENDING 09/11/21 21:25: Sodium Level 134L, Potassium Level 4.2, Chloride Level 94L, Carbon Dioxide Level 25, Anion Gap 15H, Blood Urea Nitrogen 37H, Creatinine 2.38H, Estimat Glomerular Filtration Rate 32, BUN/Creatinine Ratio 16, Glucose Level 374H, Calcium Level 8.4L, Beta-Hydroxybutyrate (Chem panel) 0.60H 09/11/21 22:36: Glucometer 284H 09/11/21 22:54: Sodium Level 137, Potassium Level 3.9, Chloride Level 97L, Carbon Dioxide Level 25, Anion Gap 15H, Blood Urea Nitrogen 34H, Creatinine 2.10H, Estimat Glomerular Filtration Rate 37, BUN/Creatinine Ratio 16, Glucose Level 267H, Lactic Acid Level 1.48, Calcium Level 8.2L 09/11/21 23:52: Glucometer 253H 09/12/21 00:48: Glucometer 225H 09/12/21 01:50: Glucometer 196H 09/12/21 02:45: Glucometer 184H 09/12/21 03:09: White Blood Count 4.1L, Red Blood Count 2.67L, Hemoglobin 10.4L, Hematocrit 30L, Mean Corpuscular Volume 112H, Mean Corpuscular Hemoglobin 39H, Mean Corpuscular Hemoglobin Concent 35, Red Cell Distribution Width 12.3, Platelet Count 144, M venkatesh Platelet Volume 9.9, Immature Granulocyte % (Auto) 0, Neutrophils (%) (Auto) 45, Lymphocytes (%) (Auto) 43, Monocytes (%) (Auto) 11, Eosinophils (%) (Auto) 1, Basophils (%) (Auto) 0, Neutrophils # (Auto) 1.8, Lymphocytes # (Auto) 1.7, Monocytes # (Auto) 0.5, Eosinophils # (Auto) 0.0, Basophils # (Auto) 0.0, Immature Granulocyte # (Auto) 0.0, Neutrophils % (Manual) 48, Lymphocytes % (Manual) 46, Monocytes % (Manual) 6, Polychromasia SLIGHT, Macrocytosis MODERATE, Elliptocytes SLIGHT, Sodium Level 139, Potassium Level 4.0, Chloride Level 102, Carbon Dioxide Level 25, Anion Gap 12, Blood Urea Nitrogen 27H, Creatinine 1.46H, Estimat Glomerular Filtration Rate 58, BUN/Creatinine Ratio 18, Glucose Level 192H, Calcium Level 8.3L, Phosphorus Level 3.8, Magnesium Level 2.5H 09/12/21 05:02: Glucometer 113H 09/12/21 07:10: Sodium Level 142, Potassium Level 4.2, Chloride Level 105, Carbon Dioxide Level 25, Anion Gap 12, Blood Urea Nitrogen 22H, Creatinine 1.11, Estimat Glomerular Filtration Rate 80, BUN/Creatinine Ratio 20, Glucose Level 80, Calcium Level 8.5, Troponin I 0.050H 09/12/21 10:00: Glucometer 278H Laboratory Tests 09/11/21 18:20 09/11/21 21:25 09/11/21 22:54 09/12/21 03:09 09/12/21 07:10 A/P-Cardiology Assessment/Admission Diagnosis DKA - h/o DM II or GUILLERMO, insulin-requiring RUDI - 3 CAD - Card cath by Dr winn at [place], [place] on 05/10/20 reported to have shown diffuse, 50% CAD, LVEF 60%, LVEDP 15 mmHg - Echo 09/06/20: LVEF 60-65%, PASP 25-30 mmHg HTN Tobaccoism COPD Carotid u/s of 05-10-20 at [facility] showed no significant stenosis Discussion and Recomendations * Dr Velez managing DKA and ac renal failure * Minimal troponin elevation likely type 2 WA due to ac renal failure and some h ypoxia at presentation * Repeat ECG and echo * Add ASA to the regimen, given h/o mod CAD on card cath of 2020 * Advised immediate and complete cessation of tobacco use TAQUERIA ERIC MD FACP FAC CCDS Sep 12, 2021 10:38
[2021-09-12] MEDS: inSUlin ASPART (NovoLOG) 1 UNIT/0.01 ML (CHARGE PER UNIT) SC SCH ×3 (11:02→21:38)
[2021-09-12] MEDS ORDERED: SERT-414 PO (13:22)
[2021-09-12] MEDS ORDERED: INSU100I14 SQ (13:23)
[2021-09-12] MEDS ORDERED: INSU100I29 SQ (13:24)
[2021-09-12] MEDS ORDERED: GLIP5TAB13 PO (13:25)
[2021-09-12] MEDS ORDERED: METF-397 PO (13:25)
[2021-09-12] MEDS ORDERED: GBPN600T PO (13:26)
[2021-09-12] MEDS ORDERED: TRAM50TA3 PO (13:27)
[2021-09-12] MEDS ORDERED: SILD50TA PO (13:28)
[2021-09-12] MEDS ORDERED: SILD100T PO (13:28)
[2021-09-12] MEDS ORDERED: LISI5TAB20 PO (13:28)
[2021-09-12] MEDS ORDERED: MULT400T5 PO (13:29)
[2021-09-12] MEDS ORDERED: VITS1TAB2 PO (13:30)
[2021-09-12] MEDS ORDERED: DIPH25TA26 PO (13:30)
[2021-09-12] MEDS ORDERED: CALC-697 PO (13:31)
[2021-09-12] MEDS ORDERED: SILD100T67 PO (13:34)
[2021-09-12] MEDS ORDERED: SILD50TA48 PO (13:37)
[2021-09-12] MEDS: GABAPENTIN 600 MG (NEURONTIN) TAB PO SCH (21:25)
[2021-09-12] MEDS: AtorvaSTATin TABLET 10 MG TABLET PO SCH (21:26)
[2021-09-13] MEDS: CEFEPIME INJECTION 1,000 MG in NS (IVPB) 50 ML IV SCH ×4 (01:31→21:23)
[2021-09-13] MEDS: inSUlin ASPART (NovoLOG) 1 UNIT/0.01 ML (CHARGE PER UNIT) SC SCH ×4 (06:05→21:22)
[2021-09-13] MEDS: MULTIVIT W/MINERALS TAB (THERAGRAN M) PO SCH (06:06)
[2021-09-13] MEDS: THIAMINE 100 MG (VITAMIN B-1) TAB PO SCH (06:06)
[2021-09-13 06:10] LABS: BASOPHILS % (AUTO) 0 % (0-10); EOSINOPHILS % (AUTO) 1 % (0-10); HEMATOCRIT 30 % (40-54); HEMOGLOBIN 10.2 g/dL (13.3-17.7); LYMPHOCYTES # (AUTO) 1.7 10^3/uL (1.0-4.0); LYMPHOCYTES % (AUTO) 47 % (12-44); MEAN CORPUSCULAR HEMOGLOBIN 38 pg (25-34); MEAN CORPUSCULAR HGB CONC 34 g/dL (32-36); MEAN CORPUSCULAR VOLUME 112 fL (80-99); MEAN PLATELET VOLUME 10.5 fL (9.0-12.2); MONOCYTES # (AUTO) 0.4 10^3/uL (0.0-1.0); MONOCYTES % (AUTO) 12 % (0-12); NEUTROPHILS # (AUTO) 1.5 10^3/uL (1.8-7.8); NEUTROPHILS % (AUTO) 41 % (42-75); PLATELET COUNT 150 10^3/uL (130-400); WHITE BLOOD COUNT 3.7 10^3/uL (4.3-11.0)
[2021-09-13 06:29] LABS: ALBUMIN 3.4 GM/DL (3.2-4.5); POTASSIUM 4.6 MMOL/L (3.6-5.0)
[2021-09-13 06:31] LABS: TOTAL PROTEIN 6.3 GM/DL (6.4-8.2)
[2021-09-13 06:33] LABS: BILIRUBIN,TOTAL 0.3 MG/DL (0.1-1.0)
[2021-09-13 06:35] LABS: CREATININE SERUM 0.82 MG/DL (0.60-1.30)
[2021-09-13] MEDS: GABAPENTIN 600 MG (NEURONTIN) TAB PO SCH ×2 (08:25→21:21)
[2021-09-13] MEDS: SENNOSIDES 8.6 MG (SENOKOT) TAB PO SCH ×2 (08:25→21:21)
[2021-09-13] MEDS: SERTRALINE 100 MG (ZOLOFT) TAB PO SCH (08:25)
[2021-09-13] MEDS: ASPIRIN 81 MG CHEW (CHILDREN'S ASA) PO SCH (08:25)
[2021-09-13] MEDS: MAGNESIUM OXIDE (MAG-OX)400 MG TAB PO SCH ×2 (08:25→21:21)
[2021-09-13] MEDS: DOCUSATE SODIUM 100 MG (COLACE) CAP PO SCH ×2 (08:25→21:21)
[2021-09-13] MEDS: FOLIC ACID 1 MG TAB PO SCH (08:25)
[2021-09-13] MEDS: PANTOPRAZOLE 40 MG (PROTONIX) VIAL IV SCH (08:25)
[2021-09-13] MEDS: THIAMINE INJECTION 100 MG, FOLIC ACID INJECTION 1 MG, MAGNESIUM SULFATE 2 GM, VITAMIN M... IV SCH ×5 (09:57)
[2021-09-13] MEDS: polyethylene glycoL POWDER 17 GM (MIRALAX) PACK PO PRN ×2 (10:00→21:24)
--- NOTE | 2021-09-13 10:57 | Progress Note - Hospitalist ---
Subjective HPI/CC On Admission Date Seen by Provider: Sep 13, 2021 Time Seen by Provider: 09:30 CC: DKA HPI: This is a 51 yr old male. He has a past medical history of type 2 diabetes. He came in with SOB and was found to be in DKA as a type 2 diabetic. He was placed on an insulin drip that has been discontinued. IV antibiotics started. Cefepime was started for tooth infection. He will be moved to the 4th floor. Ultram 100 mg q6 hours ordered. Subjective/Events-last exam Patient reports he is feeling better and asked about solid food. No nausea this morning. Does not appear to be in acute distress. Focused Exam Lactate Level 09/11/21 18:20: Lactic Acid Level 3.14*H 09/11/21 22:54: Lactic Acid Level 1.48 Objective Exam Vital Signs Vital Signs Date Time Temp Pulse Resp B/P (MAP) Pulse Ox O2 Delivery O2 Flow Rate FiO2 09/13/21 08:55 97 Room Air 09/13/21 07:53 36.6 81 18 150/84 09/12/21 10:00 2.00 Capillary Refill : General Appearance: No Apparent Distress Respiratory: Chest Non Tender, Lungs Clear, Normal Breath Sounds, No Accessory Muscle Use, No Respiratory Distress Cardiovascular: Regular Rate, Rhythm, No Edema, No Gallop, No JVD, No Murmur, Normal Peripheral Pulses Gastrointestinal: Other (Prominent left hepatic lobe mild tenderness left upper quadrant tenderness no evidence for splenomegaly abdomen soft bowel sounds positive.) Results/Procedures Lab Laboratory Tests 09/13/21 05:55 Patient resulted labs reviewed. Assessment/Plan Assessment and Plan Assess & Plan/Chief Complaint 1. DKA resolved continue current insulin and will advance diet as tolerated to 1400-calorie ADA. 2. Acute kidney injury secondary #1 resolved. 3. Alcoholism no evidence for withdrawal. 4. Pancytopenia likely due to alcoholism significant macrocytosis more so than what is seen with alcohol toxicity alone raises folate and B12 deficiency issues too late to obtain a level as the patient has been on replacement continue IV replacement possible discharge tomorrow. REGI GUY MD Sep 13, 2021 10:57
--- NOTE | 2021-09-13 13:01 | Cardiology Progress Note ---
Subjective Date Seen by Provider: Sep 13, 2021 Time Seen by Provider: 12:57 Subjective/Events-last exam Patient was seen at bedside, laying down comfortably Complaining of fatigue and loss of energy. Review of Systems General: No Chills, No Night Sweats; Fatigue, Malaise; No Appetite, No Other HEENT: No Head Aches, No Visual Changes, No Eye Pain, No Ear Pain, No Dysp hasia, No Sinus Congestion, No Post Nasal Drip, No Sore Throat, No Other Pulmonary: No Cough, No Pleuritic Chest Pain, No Other Cardiovascular: No: Chest Pain, Palpitations, Orthopnea, Paroxysmal Noc. Dyspnea, Edema, Lt Headedness, Other Focused Exam Lactate Level 09/11/21 18:20: Lactic Acid Level 3.14*H 09/11/21 22:54: Lactic Acid Level 1.48 Objective-Cardiology Exam Last Set of Vital Signs Vital Signs 09/12/21 09/13/21 10:00 11:38 Temp 36.8 Pulse 84 Resp 20 B/P (MAP) 156/86 Pulse Ox 95 O2 Delivery Room Air O2 Flow Rate 2.00 I&O Intake and Output 09/13/21 00:00 Intake Total 4550 ml Output Total 1675 ml Balance 2875 ml Intake Oral 1500 ml IV Total 3050 ml Output Urine Total 1675 ml # Voids 4 General: Alert, Oriented X3, Cooperative HEENT: Atraumatic, PERRLA Neck: Supple, No JVD, No Thyromegaly Lungs: Clear to Auscultation, Normal Air Movement Heart: Regular Rate, Normal S1, Normal S2, No Murmurs Abdomen: Normal Bowel Sounds, Soft, No Tenderness, No Hepatosplenomegaly, No Masses Extremities: No Clubbing, No Cyanosis, No Edema, Normal Pulses, No Tenderness/Swelling Skin: No Rashes, No Breakdown, No Significant Lesion Neuro: Normal Gait, Normal Speech, Strength at 5/5 X4 Ext, Normal Tone, Sensation Intact Psych/Mental Status: Mental Status NL, Mood NL Results Lab Laboratory Tests 09/13/21 05:55 A/P-Cardiology Admission Diagnosis Diabetic ketoacidosis Acute renal insufficiency Coronary artery disease Hypertension Assessment/Plan Diabetic ketoacidosis, followed and managed by primary care physician. Improving Mild elevation in troponin level, has been minimally elevated. Probably secondary to hypertension and diabetic ketoacidosis. Patient does not have any acute myocardial infarction, known to have mild coronary artery disease. Recommending aspirin 81 mg daily Coronary artery disease, history of cardiac catheterization done in April [address] Little reported to have 50% diffuse coronary artery disease nonobstruct [place] disease. Clinically stable. Continue to monitor Last echocardiogram done in August 2020 reported ejection fraction 60 to 65% with normal PA pressure. Acute renal insufficiency, chronic kidney disease stage III. Receiving IV fluid. Continue to monitor Hypertension, better controlled. Monitor blood pressure COPD. Followed and managed by primary care physician Dione, educated on smoking cessation Mild bilateral carotid stenosis, ultrasound was done in April 2020. Continue to monitor CARLA SLATER MD Sep 13, 2021 13:01
[2021-09-13] MEDS: AtorvaSTATin TABLET 10 MG TABLET PO SCH (21:21)
[2021-09-14] MEDS: CEFEPIME INJECTION 1,000 MG in NS (IVPB) 50 ML IV SCH ×2 (03:52→08:17)
[2021-09-14] MEDS: inSUlin ASPART (NovoLOG) 1 UNIT/0.01 ML (CHARGE PER UNIT) SC SCH ×2 (05:48→12:09)
[2021-09-14] MEDS: MULTIVIT W/MINERALS TAB (THERAGRAN M) PO SCH (05:51)
[2021-09-14] MEDS: THIAMINE 100 MG (VITAMIN B-1) TAB PO SCH (05:51)
[2021-09-14 06:23] LABS: BASOPHILS % (AUTO) 0 % (0-10); EOSINOPHILS % (AUTO) 1 % (0-10); HEMATOCRIT 32 % (40-54); HEMOGLOBIN 11.2 g/dL (13.3-17.7); LYMPHOCYTES # (AUTO) 1.9 10^3/uL (1.0-4.0); LYMPHOCYTES % (AUTO) 51 % (12-44); MEAN CORPUSCULAR HEMOGLOBIN 38 pg (25-34); MEAN CORPUSCULAR HGB CONC 35 g/dL (32-36); MEAN CORPUSCULAR VOLUME 111 fL (80-99); MEAN PLATELET VOLUME 10.3 fL (9.0-12.2); MONOCYTES # (AUTO) 0.4 10^3/uL (0.0-1.0); MONOCYTES % (AUTO) 11 % (0-12); NEUTROPHILS # (AUTO) 1.4 10^3/uL (1.8-7.8); NEUTROPHILS % (AUTO) 38 % (42-75); PLATELET COUNT 161 10^3/uL (130-400); WHITE BLOOD COUNT 3.8 10^3/uL (4.3-11.0)
[2021-09-14 06:31] LABS: ALBUMIN 3.5 GM/DL (3.2-4.5); POTASSIUM 4.7 MMOL/L (3.6-5.0)
[2021-09-14 06:33] LABS: CALCIUM 9.4 MG/DL (8.5-10.1)
[2021-09-14 06:34] LABS: TOTAL PROTEIN 6.6 GM/DL (6.4-8.2)
[2021-09-14 06:36] LABS: BILIRUBIN,TOTAL 0.4 MG/DL (0.1-1.0)
[2021-09-14 06:37] LABS: CREATININE SERUM 0.82 MG/DL (0.60-1.30)
[2021-09-14] MEDS: FOLIC ACID 1 MG TAB PO SCH (08:16)
[2021-09-14] MEDS: DOCUSATE SODIUM 100 MG (COLACE) CAP PO SCH (08:16)
[2021-09-14] MEDS: MAGNESIUM OXIDE (MAG-OX)400 MG TAB PO SCH (08:16)
[2021-09-14] MEDS: SENNOSIDES 8.6 MG (SENOKOT) TAB PO SCH (08:16)
[2021-09-14] MEDS: GABAPENTIN 600 MG (NEURONTIN) TAB PO SCH (08:16)
[2021-09-14] MEDS: SERTRALINE 100 MG (ZOLOFT) TAB PO SCH (08:16)
[2021-09-14] MEDS: ASPIRIN 81 MG CHEW (CHILDREN'S ASA) PO SCH (08:17)
[2021-09-14] MEDS: PANTOPRAZOLE 40 MG (PROTONIX) VIAL IV SCH (08:17)
[2021-09-14] MEDS: THIAMINE INJECTION 100 MG, FOLIC ACID INJECTION 1 MG, MAGNESIUM SULFATE 2 GM, VITAMIN M... IV SCH ×5 (08:53)
--- NOTE | 2021-09-14 12:16 | Cardiology Progress Note ---
Subjective Date Seen by Provider: Sep 14, 2021 Time Seen by Provider: 12:15 Subjective/Events-last exam Patient is laying down in bed, feeling better. Still sleepy and tired Review of Systems General: No Chills, No Night Sweats; Fatigue; No Malaise, No Appetite, No Other HEENT: No Head Aches, No Visual Changes, No Eye Pain, No Ear Pain, No Dysphasia, No Sinus Congestion, No Post Nasal Drip, No Sore Throat, No Other Pulmonary: No Dyspnea, No Cough, No Pleuritic Chest Pain, No Other Cardiovascular: No: Chest Pain, Palpitations, Orthopnea, Paroxysmal Noc. Dyspnea, Edema, Lt Headedness, Other Focused Exam Lactate Level 09/11/21 18:20: Lactic Acid Level 3.14*H 09/11/21 22:54: Lactic Acid Level 1.48 Objective-Cardiology Exam Last Set of Vital Signs Vital Signs 09/12/21 09/14/21 10:00 11:17 Temp 36.8 Pulse 71 Resp 18 B/P (MAP) 141/82 Pulse Ox 96 O2 Delivery Room Air O2 Flow Rate 2.00 I&O Intake and Output 09/14/21 00:00 Intake Total 1862 ml Balance 1862 ml Intake Oral 1812 ml IV Total 50 ml # Voids 10 # Bowel Movements 1 General: Alert, Oriented X3, Cooperative HEENT: Atraumatic, PERRLA Neck: Supple, No JVD, No Thyromegaly Lungs: Clear to Auscultation, Normal Air Movement Heart: Regular Rate, Normal S1, Normal S2, No Murmurs Abdomen: Normal Bowel Sounds, Soft, No Tenderness, No Hepatosplenomegaly, No Masses Extremities: No Clubbing, No Cyanosis, No Edema, Normal Pulses, No Tenderness/Swelling Skin: No Rashes, No Breakdown, No Significant Lesion Neuro: Normal Gait, Normal Speech, Strength at 5/5 X4 Ext, Normal Tone, Sensation Intact Psych/Mental Status: Mental Status NL, Mood NL Results Lab Laboratory Tests 09/14/21 05:30 A/P-Cardiology Admission Diagnosis Diabetic ketoacidosis Acute renal insufficiency Coronary artery disease Hypertension Assessment/Plan Diabetic ketoacidosis, followed and managed by primary care physician. Improving Mild elevation in troponin level, has been minimally elevated. Probably secondary to hypertension and diabetic ketoacidosis. Patient does not have any acute myocardial infarction, known to have mild coronary artery disease. Recommending aspirin 81 mg daily Coronary artery disease, history of cardiac catheterization done in [place] [address] Little reported to have 50% diffuse coronary artery disease nonobstructive disease. Clinically stable. Continue to monitor Last echocardiogram done in August 2020 reported ejection fraction 60 to 65% with normal PA pressure. Acute renal insufficiency, chronic kidney disease stage III. Receiving IV fluid. Continue to monitor Hypertension, better controlled. Monitor blood pressure COPD. Followed and managed by primary care physician Tobaccoism, educated on smoking cessation Mild bilateral carotid stenosis, ultrasound was done in April 2020. Continue to monitor CARLA SLATER MD Sep 14, 2021 12:16
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
[2021-09-14 14:39] VITALS: BP 141/82
== END 2021-09-14 14:35 | disposition home or self-care (01) | DRG 638 ==
LOC: EDUNIT# 18:01 → ER 18:04 → ICU 19:38 → 4TH 09-12 12:19
PROVIDERS: ADMIT Internal Medicine; ATTEND Internal Medicine
DX: E11.10 Type 2 diabetes mellitus with ketoacidosis without coma (principal); N17.9 Acute kidney failure, unspecified; D61.818 Other pancytopenia; Z79.4 Long term (current) use of insulin; Z79.84 Long term (current) use of oral hypoglycemic drugs; F17.210 Nicotine dependence, cigarettes, uncomplicated; J45.909 Unspecified asthma, uncomplicated; E78.00 Pure hypercholesterolemia, unspecified; E11.40 Type 2 diabetes mellitus with diabetic neuropathy, unspecified; M19.90 Unspecified osteoarthritis, unspecified site; Z91.14 Patient's other noncompliance with medication regimen; E78.2 Mixed hyperlipidemia; F41.9 Anxiety disorder, unspecified; F32.A Depression, unspecified; M10.9 Gout, unspecified; N52.9 Male erectile dysfunction, unspecified; K04.7 Periapical abscess without sinus; D72.829 Elevated white blood cell count, unspecified; R77.8 Other specified abnormalities of plasma proteins; F10.20 Alcohol dependence, uncomplicated; D75.89 Other specified diseases of blood and blood-forming organs; R09.02 Hypoxemia; I25.10 Atherosclerotic heart disease of native coronary artery without angina pectoris; J44.9 Chronic obstructive pulmonary disease, unspecified; N18.30 Chronic kidney disease, stage 3 unspecified; I12.9 Hypertensive chronic kidney disease with stage 1 through stage 4 chronic kidney disease, or unspecified chronic kidney disease; E11.22 Type 2 diabetes mellitus with diabetic chronic kidney disease; I65.23 Occlusion and stenosis of bilateral carotid arteries; Z20.822 Contact with and (suspected) exposure to COVID-19
CPT/HCPCS: 36415; 71045; 80048; 80053; 81000; 82010; 82805; 82947; 83036; 83605; 83735; 83880; 84100; 84145; 84484; 85007; 85025; 85027; 85610; 85730; 86141; 87040; 87081; 87088; 87636; 93005; 93306; 94760; 99291

== ENCOUNTER 2021-09-25 19:26 | Inpatient (IN) | payer SELFPAY ==
[~2021-09-25] VITALS: Ht 172.7 cm; Wt 73.9 kg
[~2021-09-25 19:26] MED LIST changes: +CALC-697 PO; +DIPH25TA26 PO; +GBPN600T PO; +GLIP5TAB13 PO; +INSU100I14 SQ; +LISI5TAB20 PO; +METF-397 PO; +MULT400T5 PO; +SERT-414 PO; +SILD100T PO; +SILD100T67 PO; +SILD50TA PO; +SILD50TA48 PO; +TRAM50TA3 PO; +VITS1TAB2 PO
[2021-09-25] MEDS ORDERED: NS IV 1000 ML 1,000 ML IV STA ×2 (19:41→20:10)
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
[2021-09-25 19:57] LABS: BASOPHILS % (AUTO) 0 % (0-10); EOSINOPHILS % (AUTO) 1 % (0-10); HEMATOCRIT 35 % (40-54); HEMOGLOBIN 12.3 g/dL (13.3-17.7); LYMPHOCYTES # (AUTO) 2.2 10^3/uL (1.0-4.0); LYMPHOCYTES % (AUTO) 43 % (12-44); MEAN CORPUSCULAR HEMOGLOBIN 38 pg (25-34); MEAN CORPUSCULAR HGB CONC 35 g/dL (32-36); MEAN CORPUSCULAR VOLUME 108 fL (80-99); MEAN PLATELET VOLUME 9.7 fL (9.0-12.2); MONOCYTES # (AUTO) 0.6 10^3/uL (0.0-1.0); MONOCYTES % (AUTO) 12 % (0-12); NEUTROPHILS # (AUTO) 2.2 10^3/uL (1.8-7.8); NEUTROPHILS % (AUTO) 44 % (42-75); PLATELET COUNT 238 10^3/uL (130-400); WHITE BLOOD COUNT 5.1 10^3/uL (4.3-11.0)
[2021-09-25 20:21] LABS: ALBUMIN 4.4 GM/DL (3.2-4.5); BILIRUBIN,TOTAL 0.5 MG/DL (0.1-1.0); CALCIUM 10.3 MG/DL (8.5-10.1); CREATININE SERUM 3.41 MG/DL (0.60-1.30); MAGNESIUM 2.9 MG/DL (1.6-2.4); POTASSIUM 5.9 MMOL/L (3.6-5.0); TOTAL PROTEIN 8.3 GM/DL (6.4-8.2)
[2021-09-25] MEDS ORDERED: CALC GLUC 1 GM/100 ML IVPB 100 ML IV STA (20:23)
[2021-09-25] MEDS ORDERED: inSUlin (REGULAR) HUMAN 1 UNIT/0.01 ML (CHARGE PER UNIT) IV ONE (20:30)
[2021-09-25] MEDS ORDERED: DEXTROSE 50% 50 ML (IMS) SYR IV ONE (20:30)
--- NOTE | 2021-09-25 20:39 | Diagnostic Imaging Report ---
EXAM: CHEST 1 VIEW, AP/PA ONLY INDICATION: Cough. COMPARISON: 09/11/2021. FINDINGS: Normal heart size and pulmonary vascularity. No dense consolidation, pleural effusion or pneumothorax. No acute osseous findings. No acute cardiopulmonary findings. IMPRESSION: Negative chest. Dictated by: Dictated on workstation # [id number]
--- NOTE | 2021-09-25 22:35 | Tele-ICU Consult ---
History of Present Illness History of Present Illness Date Seen by Provider: Sep 25, 2021 Time Seen by Provider: 22:30 History of Present Illness 51 M with known DM, also CAD, CKD, HTN, previous episodes of DKA Has glu 100 HCO3 23 started on DKA protocol Allergies and Home Medications Allergies Coded Allergies: No Known Drug Allergies (Unverified , 02/04/13) Home Medications Calcium Carbonate/Vitamin D3 1,000 Mg-20 Tablet, 1 EACH PO DAILY, (Reported) Diphenhydramine HCl 25 Mg Tablet, 25 MG PO HS PRN for SLEEP, (Reported) Gabapentin 600 Mg Tablet, 600 MG PO BID, (Reported) Glipizide 5 Mg Tablet, 5 MG PO DAILY, (Reported) Insulin Aspart 100 Unit/Ml (3 Ml) Solution, 12 UNITS SQ DAILY, (Reported) Insulin Detemir 100 Unit/Ml (3 Ml) Insuln.pen, 20 UNIT SQ HS, (Reported) Lisinopril 5 Mg Tablet, 5 MG PO DAILY, (Reported) Metformin HCl 500 Mg Tablet, 500 MG PO BID, (Reported) Multivitamin with Folic Acid 400 Mcg Tablet, 400 MCG PO DAILY, (Reported) Pantoprazole Sodium 40 Mg Tablet.dr, 40 MG PO DAILY PRN for HEARTBURN, (Re ported) Sertraline HCl 100 Mg Tablet, 100 MG PO DAILY, (Reported) Sildenafil Citrate 50 Mg Tablet, 50 MG PO DAILY PRN for ERECTILE DYSFUNCTION, (Reported) Simvastatin 20 Mg Tablet, 20 MG PO DAILY, (Reported) Tramadol HCl 50 Mg Tablet, 50 MG PO TID, (Reported) Vit A,C & E/Lutein/Minerals 300MCG-200 Tablet, 1 EACH PO DAILY, (Reported) Past Medical/Social/Family Hx Patient Social History Tobacco Use?: Yes Tobacco type used: Cigarettes Smoking Status: Current Everyday Smoker Use of E-Cig and/or Vaping dev: No Substance use?: No Alcohol Use?: Yes Alcohol type: Beer Alcohol Frequency: Daily Pt stated abuse/neglect: No Immunizations Up To Date Influenza Vaccine Up-to-Date: No; Not Current First/Initial COVID19 Vaccinat: 2020 Second COVID19 Vaccination Ted: September 2020 Tetanus Booster (TDap): Less Than 5 Years Hepatitis A: Yes Hepatitis B: Yes TB Skin Test: None Current Status Advance Directives: No Communicates: Verbally Primary Language: Syrian Preferred Spoken Language: Syrian Is interpretation needed?: No Past Medical History Type II Diabetes with Neuropathy Medical Non-compliance Erectile Dysfunction Mixex Hyperlipidemia Osteoarthritis Hypertension Anxiety and Depression Gout Seasonal Allergies Tobacco Abuse Porokeratosis Past Surgical History: None Review of Systems Constitutional: see HPI EENTM: see HPI Respiratory: see HPI Cardiovascular: see HPI Gastrointestinal: see HPI Genitourinary: see HPI Musculoskeletal: see HPI Skin: see HPI Psychiatric/Neurological: See HPI Focused Exam Lactate Level 09/25/21 19:50: Lactic Acid Level 1.08 Height, Weight, BMI Height: 5'8.00" Weight: 153lbs. 1.0oz. 69.479290ll; 24.00 BMI Method:Stated Lactic Acid Level Laboratory Tests Test 09/25/21 19:50 Lactic Acid Level 1.08 MMOL/L (0.50-2.00) Exam Exam Patient acknowledged, consented, and participated in this virtual visit which was conducted using real time audio/video Vital Signs Date Time Temp Pulse Resp B/P (MAP) Pulse Ox O2 Delivery O2 Flow Rate FiO2 09/25/21 22:14 36.7 82 16 118/66 97 Room Air 09/25/21 19:37 36.4 93 14 81/67 (72) 99 Height & Weight Height: 5'8.00" Weight: 153lbs. 1.0oz. 69.533125bs; 24.00 BMI Method:Stated General Appearance: No Apparent Distress, WD/WN Respiratory: Lungs Clear Cardiovascular: Regular Rate, Rhythm, No Edema Capillary Refill: Less Than 3 Seconds Gastrointestinal: normal bowel sounds, non tender Results Lab Laboratory Tests 09/25/21 19:50 Assessment/Plan Assessment/Plan DKA, continue on protocol Critical Care: Critically Ill Patient Time spent with patient (mins): 25 NADINE MATIAS MD Sep 25, 2021 22:35
[2021-09-25] MEDS ORDERED: LORazepam INJ 2 MG/ML (ATIVAN) VIAL IVP ONE (22:45)
--- NOTE | 2021-09-25 22:58 | Diagnostic Imaging Report ---
EXAM: ABDOMEN/KUB 1VIEW INDICATION: Lower abdominal pain. COMPARISON: CT abdomen and pelvis with IV contrast 09/16/2019. FINDINGS: Left femoral CVC tip at the level of S1. Vascular calcifications. Nonspecific bowel gas pattern. Lung bases are clear. Large amount of stool throughout the colon and rectum. No acute osseous findings. IMPRESSION: 1. Nonspecific small bowel gas pattern. 2. Large amount of stool throughout the colon and rectum suggesting constipation. 2. Left femoral CVC tip at the level of S1. Dictated by: Dictated on workstation # [id number]
[2021-09-25] MEDS ORDERED: diphenhydrAMINE 50 MG/ML INJ (BENADRYL) IVP PRN (23:00)
[2021-09-25] MEDS ORDERED: NALOXONE 0.4 MG/ML 1 ML (NARCAN) VIAL IV PRN (23:00)
[2021-09-25] MEDS ORDERED: diphenhydrAMINE 25 MG TAB (BENADRYL) PO PRN (23:00)
[2021-09-25] MEDS ORDERED: MELATONIN 3 MG TABLET PO PRN (23:00)
[2021-09-25] MEDS ORDERED: BISACODYL 10 MG SUPP (DULCOLAX) PR PRN (23:00)
[2021-09-25] MEDS ORDERED: NOREPINEPHRINE 8 MG/250 ML 250 ML IV SCH (23:00)
[2021-09-25] MEDS ORDERED: MILK OF MAGNESIA 400 MG/5 ML 30 ML UDC PO PRN (23:00)
[2021-09-25] MEDS ORDERED: LORazepam INJ 2 MG/ML (ATIVAN) VIAL IVP PRN (23:00)
[2021-09-25] MEDS ORDERED: ACETAMINOPHEN 325 MG TABLET PO PRN (23:00)
[2021-09-25] MEDS ORDERED: ANTACID SUSP 30 ML UDC (MYLANTA) PO PRN (23:00)
[2021-09-25] MEDS ORDERED: LIDOCAINE UROJET 2% GEL 10 ML PKG TOP ONE (23:00)
[2021-09-25] MEDS ORDERED: polyethylene glycoL POWDER 17 GM (MIRALAX) PACK PO PRN (23:00)
[2021-09-25] MEDS ORDERED: CALCIUM CARBONATE 500 MG (TUMS) TAB.CHEW PO PRN (23:00)
[2021-09-25] MEDS ORDERED: HYDROmorphone 2 MG/ML VIAL (DILAUDID) IVP PRN (23:00)
[2021-09-25] MEDS ORDERED: ONDANSETRON 4 MG (ZOFRAN) ORAL DISSOLVE TAB PO PRN (23:00)
[2021-09-25] MEDS ORDERED: ONDANSETRON 4 MG/2 ML (SDV) Z0FRAN IV PRN (23:00)
[2021-09-25] MEDS ORDERED: LACTULOSE SYRUP 10GM/15ML (ENULOSE) 30ML UDC PO PRN (23:00)
[2021-09-25 23:41] VITALS: BP 118/66
[2021-09-26] MEDS ORDERED: RT-ALBUTEROL/IPRATROPIUM 3 ML (DUONEB) VIAL INH PRN
[2021-09-26] MEDS: NS IV 1000 ML 1,000 ML IV SCH ×11 (00:09→17:14)
[2021-09-26 03:39] LABS: BASOPHILS % (AUTO) 0 % (0-10); EOSINOPHILS % (AUTO) 0 % (0-10); HEMATOCRIT 29 % (40-54); HEMOGLOBIN 10.3 g/dL (13.3-17.7); LYMPHOCYTES # (AUTO) 1.8 10^3/uL (1.0-4.0); LYMPHOCYTES % (AUTO) 29 % (12-44); MEAN CORPUSCULAR HEMOGLOBIN 38 pg (25-34); MEAN CORPUSCULAR HGB CONC 35 g/dL (32-36); MEAN CORPUSCULAR VOLUME 109 fL (80-99); MEAN PLATELET VOLUME 9.8 fL (9.0-12.2); MONOCYTES # (AUTO) 0.5 10^3/uL (0.0-1.0); MONOCYTES % (AUTO) 9 % (0-12); NEUTROPHILS # (AUTO) 3.8 10^3/uL (1.8-7.8); NEUTROPHILS % (AUTO) 62 % (42-75); PLATELET COUNT 176 10^3/uL (130-400); WHITE BLOOD COUNT 6.1 10^3/uL (4.3-11.0)
[2021-09-26 03:52] LABS: ALBUMIN 3.5 GM/DL (3.2-4.5); POTASSIUM 5.4 MMOL/L (3.6-5.0)
[2021-09-26 03:53] LABS: CALCIUM 8.3 MG/DL (8.5-10.1)
[2021-09-26 03:55] LABS: TOTAL PROTEIN 6.2 GM/DL (6.4-8.2)
[2021-09-26 03:56] LABS: BILIRUBIN,TOTAL 0.3 MG/DL (0.1-1.0)
[2021-09-26 03:58] LABS: CREATININE SERUM 1.88 MG/DL (0.60-1.30); PHOSPHORUS 4.3 MG/DL (2.3-4.7)
[2021-09-26 04:01] LABS: MAGNESIUM 2.4 MG/DL (1.6-2.4)
[2021-09-26] MEDS ORDERED: MAGNESIUM 1 GM/100 ML IVPB 100 ML IV SCH (06:00)
[2021-09-26] MEDS ORDERED: POTASSIUM CL 10MEQ/50ML IVPB 50 ML IV SCH (06:00)
[2021-09-26] MEDS ORDERED: KCL 20 MEQ TAB (K-DUR) PO SCH (06:00)
--- NOTE | 2021-09-26 06:16 | History & Physical-Hospitalist ---
History of Present Illness HPI/Chief Complaint CC: Hypotension with acute kidney injury HPI: This is a 51yoM who works at [employer] history of out of control Diabe kang who presents to the ICU after work-up in the ER showed Hypotension and Acute Kidney Injury of 3.4. He received aggressive IV fluids; Hypotension resolved. Creatinine much improved at 1.88. Pt was deemed stable to transfer to 4th floor and restart home medication and activity. Source: patient Exam Limitations: no limitations Date Seen 09/26/21 Time Seen by a Provider: 10:30 Attending Physician Russell Friedman MD PCP Admitting Physician: Neelam Lopez DO Attending Physician: Neelam Lopez DO Referring Physician Date of Admission Sep 25, 2021 at 21:34 Home Medications & Allergies Home Medications Reviewed patient Home Medication Reconciliation performed by pharmacy medication reconciliations veterinary technician assistant and/or nursing. Patients Allergies have been reviewed. Allergies Allergies Coded Allergies No Known Drug Allergies (Rpgbnphhvf82/26/13) Past Ohcskkp-Gcctkz-Izycbs Hx Patient Social History Marrital Status: single Employed/Student: employed Tobacco Use?: Yes Tobacco type used: Cigarettes Smoking Status: Current Everyday Smoker Use of E-Cig and/or Vaping dev: No Substance use?: No Alcohol Use?: No Alcohol type: Beer Alcohol Frequency: Daily Pt feels they are or have been: No Immunizations Up To Date First/Initial COVID19 Vaccinat: 2020 Second COVID19 Vaccination Ted: September 2020 Tetanus Booster (TDap): Less Than 5 Years Hepatitis A: Yes Hepatitis B: Yes Seasonal Allergies Seasonal Allergies: No Current Status Advance Directives: No Communicates: Verbally Primary Language: Uzbek Preferred Spoken Language: Uzbek Is interpretation needed?: No Implanted or Applied Medical D: None Past Medical History Asthma High Cholesterol, Hypertension Neuropathy Sexually Transmitted Disease: No HIV/AIDS: No Arthritis Diabetes, Insulin dep Blood Disorders: No Adverse Reaction/Blood Tranf: No Type II Diabetes with Neuropathy Medical Non-compliance Erectile Dysfunction Mixex Hyperlipidemia Osteoarthritis Hypertension Anxiety and Depression Gout Seasonal Allergies Tobacco Abuse Porokeratosis Past Surgical History: None Family Medical History No Pertinent Family Hx Review of Systems Constitutional: see HPI, malaise, weakness EENTM: no symptoms reported Respiratory: no symptoms reported Cardiovascular: no symptoms reported Gastrointestinal: no symptoms reported Genitourinary: no symptoms reported Musculoskeletal: no symptoms reported Skin: no symptoms reported Psychiatric/Neurological: No Symptoms Reported All Other Systems Reviewed Negative Unless Noted: Yes Physical Exam Physical Exam Vital Signs Vital Signs - First Documented 09/25/21 09/25/21 09/25/21 19:37 22:14 23:41 Temp 36.4 Pulse 93 Resp 14 B/P (MAP) 81/67 (72) Pulse Ox 99 O2 Delivery Room Air FiO2 21 Capillary Refill : Less Than 3 Seconds Height, Weight, BMI Height: 5'8.00" Weight: 153lbs. 1.0oz. 69.564123qa; 24.64 BMI Method:Stated General Appearance: No Apparent Distress, Chronically ill Eyes: Right Eye Normal Inspection, Right Eye PERRL HEENT: PERRL/EOMI, Normal ENT Inspection, Pharynx Normal, Moist Mucous Membranes Neck: Full Range of Motion, Normal Inspection, Non Tender Respiratory: Chest Non Tender, Lungs Clear, Normal Breath Sounds, No Accessory Muscle Use, No Respiratory Distress Cardiovascular: Regular Rate, Rhythm, No Edema, No Gallop, No JVD, No Murmur, Normal Peripheral Pulses Gastrointestinal: Normal Bowel Sounds, No Organomegaly, No Pulsatile Mass, Non Tender, Soft Back: Normal Inspection, No CVA Tenderness, No Vertebral Tenderness Extremity: Normal Capillary Refill, Normal Inspection, Normal Range of Motion, Non Tender, No Calf Tenderness, No Pedal Edema Neurologic/Psychiatric: Alert, Oriented x3, No Motor/Sensory Deficits, Normal Mood/Affect Skin: Normal Color, Warm/Dry Lymphatic: No Adenopathy Results Results/Procedures Labs Laboratory Tests 09/25/21 19:50 09/26/21 03:33 Patient resulted labs reviewed. Assessment/Plan Admission Diagnosis Assessment: RUDI Hypotension not due to sepsis Dehydration DM on insulin Smoker Elevated troponin Plan: IVF Move to [facility] Supportive care Cardiology consult Admission Status: Inpatient Order (span 2 midnights) Reason for Inpatient Admission: RUDI Diagnosis/Problems Diagnosis/Problems (1) RUDI (acute kidney injury) Status: Acute (2) Hypotension Status: Acute (3) Elevated troponin Status: Acute NEELAM LOPEZ DO Sep 26, 2021 06:16
[2021-09-26] MEDS: inSUlin ASPART (NovoLOG) 1 UNIT/0.01 ML (CHARGE PER UNIT) SC SCH ×4 (06:29→20:33)
[2021-09-26] MEDS: DOCUSATE SODIUM 100 MG (COLACE) CAP PO SCH ×2 (07:51→20:22)
[2021-09-26] MEDS: SENNOSIDES 8.6 MG (SENOKOT) TAB PO SCH ×2 (07:51→20:22)
[2021-09-26] MEDS ORDERED: NS IV 1000 ML 1,000 ML IV PRN (08:00)
[2021-09-26] MEDS: ASPIRIN E.C. 81 MG (ECOTRIN) TAB PO SCH (08:45)
[2021-09-26] MEDS: PANTOPRAZOLE 40 MG (PROTONIX) VIAL IV SCH (08:45)
--- NOTE | 2021-09-26 09:32 | Physical Therapy Evaluation ---
PT Evaluation-General Medical Diagnosis Admission Date Sep 25, 2021 at 21:34 Medical Diagnosis: acute kidney injury Onset Date: Sep 25, 2021 Therapy Diagnosis Therapy Diagnosis: impaired mobility, strength, balance Height/Weight Height (Feet): 5 Height (Inches): 8.00 Weight (Pounds): 153 Weight (Ounces): 1.0 Precautions Precautions/Isolations: Standard Precautions Weight Bear Status Right Lower Extremity: Right Weight Bearing/Tolerated Left Lower Extremity: Left Weight Bearing/Tolerated Referral Physician: Neelam Lopez DO Reason for Referral: Evaluation/Treatment Medical History Additional Medical History Type II Diabetes with Neuropathy Medical Non-compliance Erectile Dysfunction Mixex Hyperlipidemia Osteoarthritis Hypertension Anxiety and Depression Gout Seasonal Allergies Tobacco Abuse Porokeratosis Reviewed History: Yes Social History Home: Single Level Current Living Status: Alone Entry Into Home: Stairs Without Railing PT Steps Into Home: 4 Prior Prior Level of Function SCALE: Activities may be completed with or without assistive devices. 9-Vjfecobszj-qldfglf completes the activity by him/herself with no assistance from a helper. 5-Set-up or Clean-up Assistance-helper sets up or cleans up; patient completes activity. Morton assists only prior to or following the activity. 4-Supervision or Touching Assistance-helper provides verbal cues and/or touching/steadying and/or contact guard assistance as patient completes activity. Assistance may be provided throughout the activity or intermittently. 3-Partial/Moderate Assistance-helper does LESS THAN HALF the effort. Morton lifts, holds or supports trunk or limbs, but provides less than half the effort. 2-Substantial/Maximal Assistance-helper does MORE THAN HALF the effort. Morton lifts or holds trunk or limbs and provides more than half the effort. 0-Ixxzvhayg-agvrxx does ALL the effort. Patient does none of the effort to complete the activity. Or, the assistance of 2 or more helpers is required for the patient to complete the activity. If activity was not attempted, code reason: 7-Patient Refused. 9-Not Applicable-not attempted and the patient did not perform the activity before the current illness, exacerbation or injury. 10-Not Attempted due to Environmental Limitations-(lack of equipment, weather restraints, etc.). 88-Not Attempted due to Medical Conditions or Safety Concerns. Bed Mobility: 6 Transfers (B,C,W/C): 6 Gait: 6 Indoor Mobility (Ambulation): Independent Stairs: Independent Patient uses a SPC PT Evaluation-Current Subjective Patient in bed pre tx, agrees to PT, has no complaints of pain at rest. Pt/Family Goals to be independent at home Objective Patient Orientation: Person, Place, Situation Attachments: IV ROM/Strength ROM Lower Extremities WNL Strength Lower Extremities LLE (hip flexion 3-/5, knee flexion 3+/5, knee extension 3+/5, dorsiflexion 5/5), RLE (hip flexion 3-/5, knee flexion 3+/5, knee extension 3+/5, dorsiflexion 5/5) Sensory Vision: Functional Hearing: Functional Sensation Right Lower Extremit: Impaired Sensation Left Lower Extremity: Impaired Transfers Roll Left to Right (QC): 6 Sit to Lying (QC): 4 Lying to Sitting/Side of Bed(Q: 4 Sit to Stand (QC): 4 Chair/Fkc-mr-Ipirb Xfer(QC): 4 Gait Does the Patient Walk?: Yes Mode of Locomotion: Walk Anticipated Mode of Locomotion: Walk Walk 10 feet (QC): 4 Distance: 30' Gait Assistive Device: FWW Comments/Gait Description slow ambulation, slightly unsteady, CGA Balance Sitting Static: Normal Sitting Dynamic: Normal Standing Static: Poor Standing Dynamic: Poor Treatment BLE supine exercises x20 (AP, HS) Assessment/Needs Patient in bed post tx with nurse call, phone, tray, bed alarm on. Patient has impaired mobility, strength, balance. He needs somebody with him when up due to unsteadiness. Rehab Potential: Fair PT Voting Machine Mechanic Goals Voting Machine Mechanic Goals PT Voting Machine Mechanic Goals Time Frame: Oct 03, 2021 Roll Left & Right (QC): 6 Sit to Lying (QC): 6 Lying-Sitting on Side/Bed(QC): 6 Sit to Stand (QC): 6 Chair/Rie-ev-Agklh Xfer(QC): 6 Walk 10 feet (QC): 6 Walk 50ft with 2 Turns (QC): 6 PT Plan Problem List Problem List: Activity Tolerance, Functional Strength, Safety, Balance, Gait, Transfer, Bed Mobility, ROM Treatment/Plan Treatment Plan: Continue Plan of Care Treatment Plan: Bed Mobility, Education, Functional Activity Makayla, Functional Strength, Gait, Safety, Therapeutic Exercise, Transfers Treatment Duration: Oct 03, 2021 Frequency: 6 times per week Estimated Hrs Per Day: .25 hour per day Patient and/or Family Agrees t: Yes Safety Risks/Education Patient Education: Gait Training, Transfer Techniques, Correct Positioning, Safety Issues Teaching Recipient: Patient Teaching Methods: Demonstration, Discussion Response to Teaching: Reinforcement Needed Discharge Recommendations Plan Patient will perform bed mobility and transfer training, balance and endurance training, functional strengthening, stair training, gait training, and education, to improve functional mobility and independence at home. Therapy Discharge Recommendati: Home & Family, Post Acute PT Time/GCodes Time In: 854 Time Out: 905 Total Billed Treatment Time: 11 Total Billed Treatment 1 visit EV 11' PATTI RICHARD PT Sep 26, 2021 09:32
--- NOTE | 2021-09-26 09:35 | Consultation-Cardiology ---
HPI-Cardiology Cardiology Consultation: Date of Consultation 09/26/21 Date of Admission Attending Physician Russell Friedman MD Admitting Physician Admitting Physician: Neelam Lopez DO Attending Physician: Neelam Lopez DO Consulting Physician YUMIKO LEES Review of Systems-Cardiology All Other Systems Reviewed Negative Unless Noted: Yes JQG-Wtxroj-Flgdzn Hx Patient Social History Smoking Status: Current Everyday Smoker 2nd Hand Smoke Exposure: Yes Have you traveled recently?: No Alcohol Use?: No Pt feels they are or have been: No Tobacco type used: Cigarettes Immunizations Up To Date Tetanus Booster (TDap): Unknown Past Medical History PMH As described under Assessment. Family Medical History Family Medical History: Reports h/o heart disease in mother (details not known) and h/o CVA in father Allergies and Home Medications Allergies Coded Allergies: No Known Drug Allergies (Unverified , 02/04/13) Patient Home Medication List Calcium Carbonate/Vitamin D3 (Calcium 1,000 + D3 Caplet) 1,000 Mg-20 Tablet, 1 EACH PO DAILY, (Reported) Entered as Reported by: MARI VAZQUEZ on 09/12/21 1331 Diphenhydramine HCl (Sleep Tabs) 25 Mg Tablet, 25 MG PO HS PRN for SLEEP, (Reported) Entered as Reported by: MARI VAZQUEZ on 09/12/21 1330 Gabapentin (Gabapentin) 600 Mg Tablet, 600 MG PO BID, (Reported) Entered as Reported by: MARI VAZQUEZ on 09/12/21 1326 Glipizide (Glipizide) 5 Mg Tablet, 5 MG PO DAILY, (Reported) Entered as Reported by: MARI VAZQUEZ on 09/12/21 1325 Insulin Aspart (Novolog Flexpen) 100 Unit/Ml (3 Ml) Solution, 12 UNITS SQ DAILY, (Reported) Entered as Reported by: MARI VAZQUEZ on 09/12/21 1323 Insulin Detemir (Levemir Flextouch) 100 Unit/Ml (3 Ml) Insuln.pen, 20 UNIT SQ HS, (Reported) Entered as Reported by: MARI VAZQUEZ on 09/12/21 1324 Lisinopril (Lisinopril) 5 Mg Tablet, 5 MG PO DAILY, (Reported) Entered as Reported by: MARI VAZQUEZ on 09/12/21 1328 Metformin HCl (Metformin HCl) 500 Mg Tablet, 500 MG PO BID, (Reported) Entered as Reported by: MARI VAZQUEZ on 09/12/21 1325 Multivitamin with Folic Acid (One Daily Multivitamin Tablet) 400 Mcg Tablet, 400 MCG PO DAILY, (Reported) Entered as Reported by: MARI VAZQUEZ on 09/12/21 1329 Pantoprazole Sodium (Protonix) 40 Mg Tablet.dr, 40 MG PO DAILY PRN for HEARTBUR N, (Reported) Entered as Reported by: JAEL LOPEZ on 01/13/18 1030 Sertraline HCl (Sertraline HCl) 100 Mg Tablet, 100 MG PO DAILY, (Reported) Entered as Reported by: MARI VAZQUEZ on 09/12/21 1322 Sildenafil Citrate (Sildenafil Citrate) 50 Mg Tablet, 50 MG PO DAILY PRN for ERECTILE DYSFUNCTION, (Reported) Entered as Reported by: MARI VAZQUEZ on 09/12/21 1337 Simvastatin (Simvastatin) 20 Mg Tablet, 20 MG PO DAILY, (Reported) Entered as Reported by: JAEL LOPEZ on 01/13/18 1040 Tramadol HCl (Tramadol HCl) 50 Mg Tablet, 50 MG PO TID, (Reported) Entered as Reported by: MARI VAZQUEZ on 09/12/21 1327 Vit A,C & E/Lutein/Minerals (Healthy Eyes Tablet) 300MCG-200 Tablet, 1 EACH PO DAILY, (Reported) Entered as Reported by: MARI VAZQUEZ on 09/12/21 1330 Physical Exam-Cardiology Physical Exam Vital Signs/I&O 09/25/21 09/25/21 09/25/21 09/25/21 22:14 22:40 22:40 22:45 Temp 36.7 36.4 Pulse 82 86 Resp 16 18 B/P (MAP) 118/66 132/69 Pulse Ox 97 99 96 O2 Delivery Room Air Room Air Room Air 09/25/21 09/25/21 09/25/21 09/25/21 22:48 23:00 23:15 23:30 Pulse 86 87 82 83 Resp 15 B/P (MAP) 128/54 113/56 113/58 Pulse Ox 95 99 99 O2 Delivery Room Air Room Air Room Air 09/25/21 09/26/21 09/26/21 09/26/21 23:41 00:00 01:00 01:00 Temp 36.7 Pulse 82 83 86 86 Resp 17 17 B/P (MAP) 137/72 125/67 Pulse Ox 97 100 97 O2 Delivery Room Air Room Air FiO2 21 09/26/21 09/26/21 09/26/21 09/26/21 02:00 03:00 03:42 04:00 Temp 36.0 Pulse 77 75 73 Resp 15 14 16 B/P (MAP) 133/64 105/55 102/50 Pulse Ox 98 97 95 O2 Delivery Room Air Room Air Room Air 09/26/21 09/26/21 09/26/21 09/26/21 04:00 05:00 06:00 07:00 Pulse 65 73 66 Resp 16 8 B/P (MAP) 92/47 87/38 124/63 Pulse Ox 100 96 95 100 O2 Delivery Room Air Room Air Room Air Room Air 09/26/21 09/26/21 09/26/21 09/26/21 07:00 08:00 08:00 09:00 Temp 36.6 Pulse 65 69 76 Resp 10 14 B/P (MAP) 107/62 Pulse Ox 98 100 O2 Delivery Room Air Room Air 09/26/21 00:00 Intake Total 2000 ml Balance 2000 ml Capillary Refill : Less Than 3 Seconds Data Review Labs Laboratory Tests 09/25/21 19:40: Glucometer 105 09/25/21 19:50: White Blood Count 5.1, Red Blood Count 3.23L, Hemoglobin 12.3L, Hematocrit 35L, Mean Corpuscular Volume 108H, Mean Corpuscular Hemoglobin 38H, Mean Corpuscular Hemoglobin Concent 35, Red Cell Distribution Width 12.0, Platelet Count 238, Mean Platelet Volume 9.7, Immature Granulocyte % (Auto) 0, Neutrophils (%) (Auto) 44, Lymphocytes (%) (Auto) 43, Monocytes (%) (Auto) 12, Eosinophils (%) (Auto) 1, Basophils (%) (Auto) 0, Neutrophils # (Auto) 2.2, Lymphocytes # (Auto) 2.2, Monocytes # (Auto) 0.6, Eosinophils # (Auto) 0.0, Basophils # (Auto) 0.0, Immature Granulocyte # (Auto) 0.0, Sodium Level 138, Potassium Level 5.9H, Chloride Level 99, Carbon Dioxide Level 23, Anion Gap 16H, Blood Urea Nitrogen 57H, Creatinine 3.41H, Estimat Glomerular Filtration Rate 21, BUN/Creatinine Rat io 17, Glucose Level 100, Lactic Acid Level 1.08, Calcium Level 10.3H, Corrected Calcium 10.0, Magnesium Level 2.9H, Total Bilirubin 0.5, Aspartate Amino Transf (AST/SGOT) 23, Alanine Aminotransferase (ALT/SGPT) 28, Alkaline Phosphatase 79, Troponin I 0.054H, Total Protein 8.3H, Albumin 4.4, Lipase 85H, Beta- Hydroxybutyrate (Chem panel) 0.37H, Serum Alcohol < 10 09/25/21 19:54: Influenza Type A (RT-PCR) Not Detected, Influenza Type B (RT-PCR) Not Detected, SARS-CoV-2 RNA (RT-PCR) Not Detected 09/26/21 03:33: White Blood Count 6.1, Red Blood Count 2.69L, Hemoglobin 10.3L, Hematocrit 29L, Mean Corpuscular Volume 109H, Mean Corpuscular Hemoglobin 38H, Mean Corpuscular Hemoglobin Concent 35, Red Cell Distribution Width 12.1, Platelet Count 176, Mean Platelet Volume 9.8, Immature Granulocyte % (Auto) 0, Neutrophils (%) ( Auto) 62, Lymphocytes (%) (Auto) 29, Monocytes (%) (Auto) 9, Eosinophils (%) (Auto) 0, Basophils (%) (Auto) 0, Neutrophils # (Auto) 3.8, Lymphocytes # (Auto) 1.8, Monocytes # (Auto) 0.5, Eosinophils # (Auto) 0.0, Basophils # (Auto) 0.0, Immature Granulocyte # (Auto) 0.0, Sodium Level 135, Potassium Level 5.4H, Chloride Level 103, Carbon Dioxide Level 21, Anion Gap 11, Blood Urea Nitrogen 44H, Creatinine 1.88H, Estimat Glomerular Filtration Rate 43, BUN/Creatinine Ratio 23, Glucose Level 256H, Calcium Level 8.3L, Corrected Calcium 8.7, Magnesium Level 2.4, Total Bilirubin 0.3, Aspartate Amino Transf (AST/SGOT) 19, Alanine Aminotransferase (ALT/SGPT) 23, Alkaline Phosphatase 67, Troponin I 0.068H, Total Protein 6.2L, Albumin 3.5, Phosphorus Level 4.3 Laboratory Tests 09/25/21 19:50 09/26/21 03:33 Radiology NAME: KEN SWANSON REC#: [id number] PT STATUS: ADM IN : 1970 PHYSICIAN: FREIDA OLVERA ADMIT DATE: 09/25/21/ICU Signed Date of Exam:09/25/21 CHEST 1 VIEW, AP/PA ONLY EXAM: CHEST 1 VIEW, AP/PA ONLY INDICATION: Cough. COMPARISON: 09/11/2021. FINDINGS: Normal heart size and pulmonary vascularity. No dense consolidation, pleural effusion or pneumothorax. No acute osseous findings. No acute cardiopulmonary findings. IMPRESSION: Negative chest. Dictated by: Dictated on workstation # [id number] Dict: 09/25/[id number] Trans: 09/25/212143 CVB [id number] Interpreted by: ALLI CABRERA MD Electronically signed by: ALLI CABRERA MD 09/25/212143 NAME: KEN SWANSON [facility] REC#: [id number] PT STATUS: ADM IN : 1970 PHYSICIAN: FREIDA OLVERA ADMIT DATE: 09/25/21/ICU Signed Date of Exam:09/25/21 ABDOMEN/KUB 1VIEW EXAM: ABDOMEN/KUB 1VIEW INDICATION: Lower abdominal pain. COMPARISON: CT abdomen and pelvis with IV contrast 09/16/2019. FINDINGS: Left femoral CVC tip at the level of S1. Vascular calcifications. Nonspecific bowel gas pattern. Lung bases are clear. Large amount of stool throughout the colon and rectum. No acute osseous findings. IMPRESSION: 1. Nonspecific small bowel gas pattern. 2. Large amount of stool throughout the colon and rectum suggesting constipation. 2. Left femoral CVC tip at the level of S1. Dictated by: Dictated on workstation # [id number] Dict: 09/25/212254 Trans: 09/25/212337 CVB [id number] Interpreted by: ALLI CABRERA MD Electronically signed by: ALLI CABRERA MD 09/25/21 2338 A/P-Cardiology Assessment/Admission Diagnosis Elevated troponin - Likely Type 2 [place] secondary to hypotension and RUDI RUDI - likely secondary to hypotension Hyperkalemia CAD - 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
--- NOTE | 2021-09-26 09:45 | Consultation-Cardiology ---
HPI-Cardiology Cardiology Consultation: Date of Consultation 09/26/21 Time Seen by a Provider: 09:30 Date of Admission Attending Physician Russell Friedman MD Admitting Physician Admitting Physician: Neelam Lopez DO Attending Physician: Neelam Lopez DO Consulting Physician TAQUERIA ERIC MD, MA, FACP, FACC, [facility], CCDS Physician requesting consult: Dr Lopez HPI: Chief Complaint: Reason for Card consult: Elevated troponin 51 yo man admitted to Dr Lopez on 09/25/21 after he had presented with profound dizziness, gen weakness, shortness of breath, episodes of vomiting w/o diarrhea; found to have hypotension and acute renal failure. Has been receiving iv fluids. Now feels better. Denies cp or palp or syncope or swelling Review of Systems-Cardiology Review of Systems Constitutional: As described under HPI Eyes: No vision change Ears/Nose/Throat: No ear discharge, No nasal drainage Respiratory: As described under HPI Cardiovascular: As described under HPI Gastrointestinal: As described under HPI Genitourinary: No dysuria, No hematuria, No urine frequency changes Skin: No rash, No ulcerations Psychiatric/Neurological: No seizure, No focal weakness, No syncope Hematologic: No bleeding abnormalities All Other Systems Reviewed Negative Unless Noted: Yes ZVE-[id number]-[id number] Hx Patient Social History Smoking Status: Current Everyday Smoker 2nd Hand Smoke Exposure: Yes Have you traveled recently?: No Alcohol Use?: No Pt feels they are or have been: No Tobacco type used: Cigarettes Immunizations Up To Date Tetanus Booster (TDap): Unknown Past Medical History PMH As described under Assessment. Family Medical History Family Medical History: Reports h/o heart disease in mother (details not known) and h/o CVA in father Allergies and Home Medications Allergies Coded Allergies: No Known Drug Allergies (Unverified , 02/04/13) Patient Home Medication List Home Medication List Reviewed: Yes Calcium Carbonate/Vitamin D3 (Calcium 1,000 + D3 Caplet) 1,000 Mg-20 Tablet, 1 EACH PO DAILY, (Reported) Entered as Reported by: MARI VAZQUEZ on 09/12/21 1331 Diphenhydramine HCl (Sleep Tabs) 25 Mg Tablet, 25 MG PO HS PRN for SLEEP, (Reported) Entered as Reported by: MARI VAZQUEZ on 09/12/21 1330 Gabapentin (Gabapentin) 600 Mg Tablet, 600 MG PO BID, (Reported) Entered as Reported by: MARI VAZQUEZ on 09/12/21 1326 Glipizide (Glipizide) 5 Mg Tablet, 5 MG PO DAILY, (Reported) Entered as Reported by: MARI VAZQUEZ on 09/12/21 1325 Insulin Aspart (Novolog Flexpen) 100 Unit/Ml (3 Ml) Solution, 12 UNITS SQ DAILY, (Reported) Entered as Reported by: MARI VAZQUEZ on 09/12/21 1323 Insulin Detemir (Levemir Flextouch) 100 Unit/Ml (3 Ml) Insuln.pen, 20 UNIT SQ HS, (Reported) Entered as Reported by: MARI VAZQUEZ on 09/12/21 1324 Lisinopril (Lisinopril) 5 Mg Tablet, 5 MG PO DAILY, (Reported) Entered as Reported by: MARI VAZQUEZ on 09/12/21 1328 Metformin HCl (Metformin HCl) 500 Mg Tablet, 500 MG PO BID, (Reported) Entered as Reported by: MARI VAZQUEZ on 09/12/21 1325 Multivitamin with Folic Acid (One Daily Multivitamin Tablet) 400 Mcg Tablet, 400 MCG PO DAILY, (Reported) Entered as Reported by: MARI VAZQUEZ on 09/12/21 1329 Pantoprazole Sodium (Protonix) 40 Mg Tablet.dr, 40 MG PO DAILY PRN for HEARTBURN, (Reported) Entered as Reported by: JAEL LOPEZ on 01/13/18 1030 Sertraline HCl (Sertraline HCl) 100 Mg Tablet, 100 MG PO DAILY, (Reported) Entered as Reported by: MARI VAZQUEZ on 09/12/21 1322 Sildenafil Citrate (Sildenafil Citrate) 50 Mg Tablet, 50 MG PO DAILY PRN for ERECTILE DYSFUNCTION, (Reported) Entered as Reported by: MARI VAZQUEZ on 09/12/21 1337 Simvastatin (Simvastatin) 20 Mg Tablet, 20 MG PO DAILY, (Reported) Entered as Reported by: JAEL LOPEZ on 01/13/18 1040 Tramadol HCl (Tramadol HCl) 50 Mg Tablet, 50 MG PO TID, (Reported) Entered as Reported by: MARI VAZQUEZ on 09/12/21 1327 Vit A,C & E/Lutein/Minerals (Healthy Eyes Tablet) 300MCG-200 Tablet, 1 EACH PO DAILY, (Reported) Entered as Reported by: MARI VAZQUEZ on 09/12/21 1330 Physical Exam-Cardiology Physical Exam Vital Signs/I&O 09/25/21 09/25/21 09/25/21 09/25/21 22:14 22:40 22:40 22:45 Temp 36.7 36.4 Pulse 82 86 Resp 16 18 B/P (MAP) 118/66 132/69 Pulse Ox 97 99 96 O2 Delivery Room Air Room Air Room Air 09/25/21 09/25/21 09/25/21 09/25/21 22:48 23:00 23:15 23:30 Pulse 86 87 82 83 Resp 15 17 15 B/P (MAP) 128/54 113/56 113/58 Pulse Ox 95 99 99 O2 Delivery Room Air Room Air Room Air 09/25/21 09/26/21 09/26/21 09/26/21 23:41 00:00 01:00 01:00 Temp 36.7 Pulse 82 83 86 86 Resp 17 17 B/P (MAP) 137/72 125/67 Pulse Ox 97 100 97 O2 Delivery Room Air Room Air FiO2 21 09/26/21 09/26/21 09/26/21 09/26/21 02:00 03:00 03:42 04:00 Temp 36.0 Pulse 77 75 73 Resp 15 14 16 B/P (MAP) 133/64 105/55 102/50 Pulse Ox 98 97 95 O2 Delivery Room Air Room Air Room Air 09/26/21 09/26/21 09/26/21 09/26/21 04:00 05:00 06:00 07:00 Pulse 65 73 66 Resp 16 8 B/P (MAP) 92/47 87/38 124/63 Pulse Ox 100 96 95 100 O2 Delivery Room Air Room Air Room Air Room Air 09/26/21 09/26/21 09/26/21 09/26/21 07:00 08:00 08:00 08:00 Temp 36.6 Pulse 65 69 Resp 10 B/P (MAP) 107/62 Pulse Ox 98 100 O2 Delivery Room Air Room Air 09/26/21 09:00 Pulse 76 Resp 14 B/P (MAP) Pulse Ox 100 O2 Delivery Room Air 09/26/21 00:00 Intake Total 2000 ml Balance 2000 ml Capillary Refill : Less Than 3 Seconds Constitutional: AAO x 3, well-developed, well-nourished HEENT: EOMI, hearing is well preserved Neck: carotid pulses are 2 + bilaterally, with good upstrokes Respiratory: No accessory muscle use; other (fair to good, bilateral air entry) Cardiovascular: regular rate-rhythm, S1 and S2, systolic murmur (soft CONSTANTINO at card base) Gastrointestinal: No tender; soft; No guarding, No rebound; audible bowel sounds Extremities: No clubbing, No cyanosis Neurologic/Psychiatric: oriented x 3, other (moves all limbs equally) Skin: No rash on exposed areas, No ulcerations on exposed areas Data Review Labs Laboratory Tests 09/25/21 19:40: Glucometer 105 09/25/21 19:50: White Blood Count 5.1, Red Blood Count 3.23L, Hemoglobin 12.3L, Hematocrit 35L, Mean Corpuscular Volume 108H, Mean Corpuscular Hemoglobin 38H, Mean Corpuscular Hemoglobin Concent 35, Red Cell Distribution Width 12.0, Platelet Count 238, Mean Platelet Volume 9.7, Immature Granulocyte % (Auto) 0, Neutrophils (%) (Auto) 44, Lymphocytes (%) (Auto) 43, Monocytes (%) (Auto) 12, Eosinophils (%) (Auto) 1, Basophils (%) (Auto) 0, Neutrophils # (Auto) 2.2, Lymphocytes # (Auto) 2.2, Monocytes # (Auto) 0.6, Eosinophils # (Auto) 0.0, Basophils # (Auto) 0.0, Immature Granulocyte # (Auto) 0.0, Sodium Level 138, Potassium Level 5.9H, Chloride Level 99, Carbon Dioxide Level 23, Anion Gap 16H, Blood Urea Nitrogen 57H, Creatinine 3.41H, Estimat Glomerular Filtration Rate 21, BUN/Creatinine Ratio 17, Glucose Level 100, Lactic Acid Level 1.08, Calcium Level 10.3H, Corrected Calcium 10.0, Magnesium Level 2.9H, Total Bilirubin 0.5, Aspartate Amino Transf (AST/SGOT) 23, Alanine Aminotransferase (ALT/SGPT) 28, Alkaline Phosphatase 79, Troponin I 0.054H, Total Protein 8.3H, Albumin 4.4, Lipase 85H, Beta-Hydroxybutyrate (Chem panel) 0.37H, Serum Alcohol < 10 09/25/21 19:54: Influenza Type A (RT-PCR) Not Detected, Influenza Type B (RT-PCR) Not Detected, SARS-CoV-2 RNA (RT-PCR) Not Detected 09/26/21 03:33: White Blood Count 6.1, Red Blood Count 2.69L, Hemoglobin 10.3L, Hematocrit 29L, Mean Corpuscular Volume 109H, Mean Corpuscular Hemoglobin 38H, Mean Corpuscular Hemoglobin Concent 35, Red Cell Distribution Width 12.1, Platelet Count 176, Mean Platelet Volume 9.8, Immature Granulocyte % (Auto) 0, Neutrophils (%) (Auto) 62, Lymphocytes (%) (Auto) 29, Monocytes (%) (Auto) 9, Eosinophils (%) (Auto) 0, Basophils (%) (Auto) 0, Neutrophils # (Auto) 3.8, Lymphocytes # (Auto) 1.8, Monocytes # (Auto) 0.5, Eosinophils # (Auto) 0.0, Basophils # (Auto) 0.0, Immature Granulocyte # (Auto) 0.0, Sodium Level 135, Potassium Level 5.4H, Chloride Level 103, Carbon Dioxide Level 21, Anion Gap 11, Blood Urea Nitrogen 44H, Creatinine 1.88H, Estimat Glomerular Filtration Rate 43, BUN/Creatinine Ratio 23, Glucose Level 256H, Calcium Level 8.3L, Corrected Calcium 8.7, Mag nesium Level 2.4, Total Bilirubin 0.3, Aspartate Amino Transf (AST/SGOT) 19, Alanine Aminotransferase (ALT/SGPT) 23, Alkaline Phosphatase 67, Troponin I 0.068H, Total Protein 6.2L, Albumin 3.5, Phosphorus Level 4.3 Laboratory Tests 09/25/21 19:50 09/26/21 03:33 A/P-Cardiology Assessment/Admission Diagnosis Ac renal failure (RUDI 3) - Likely ATN due to hypotension Elevated troponin - Likely Type 2 [place] secondary to hypotension and RUDI CAD - Card cath by Dr Winters at [place], [place] on 05/10/20 reported to have shown diffuse, 50% CAD, LVEF 60%, LVEDP 15 mmHg - Echocardiogram of 09-12-21 showed LVEF 55-60%; Grade 2 diastolic dysfunction; Mild MR; PASP 30-35 mmHg DM II or GUILLERMO, insulin-requiring HTN Tobaccoism - repeatedly advised to quit COPD Carotid u/s of 05-10-[address] [facility] showed no significant stenosis Discussion and Recomendations * Complex management due to multiple comorbidities (see above) * Treatment of renal failure and hyperkalemia is by the Hospitalist svce (Dr Lopez) * Continue ASA due to h/o moderate CAD * Monitor labs closely TAQUERIA ERIC MD FACP [facility] Sep 26, 2021 09:45
[2021-09-26] MEDS ORDERED: NABU500T8 PO (11:45)
[2021-09-26] MEDS ORDERED: NON-FORMULARY MEDICATION 1 EA EA (Nabumetone 500 MG) PO PRN (12:00)
[2021-09-26] MEDS ORDERED: PANTOPRAZOLE 40 MG (PROTONIX) TAB PO PRN (12:00)
[2021-09-26] MEDS: inSUlin ASPART (NovoLOG) 1 UNIT/0.01 ML (CHARGE PER UNIT) SQ SCH (12:08)
--- NOTE | 2021-09-26 13:29 | Occupational Therapy Eval ---
OT Evaluation-General/PLF Medical Diagnosis Admission Date Sep 25, 2021 at 21:34 Medical Diagnosis: acute kidney injury Onset Date: Sep 25, 2021 Therapy Diagnosis Therapy Diagnosis: decreased ADL status Height/Weight Height (Feet): 5 Height (Inches): 8.00 Weight (Pounds): 153 Weight (Ounces): 1.0 Precautions Precautions/Isolations: Standard Precautions Referral Physician: Neelam Lopez DO Referral Reason: Evaluation/Treatment Medical History Additional Medical History asthma, hypercholesterol, HTN, neuropathy (hands and feet), arthritis, DM, OA, anxiety/depression, gout, porokeratosis, CAD, CKD Current History ED 09/25 with generalized weakness, fatigue, SOB, dizziness and nonbilious vomiting Social History Home: Single Level Current Living Status: Alone Entry Into Home: Stairs Without Railing Steps Into Home: 4 ADL-Prior Level of Function SCALE: Activities may be completed with or without assistive devices. 5-Qjspafhnph-nwzehbd completes the activity by him/herself with no assistance from a helper. 5-Set-up or Clean-up Assistance-helper sets up or cleans up; patient completes activity. [place] assists only prior to or following the activity. 4-Supervision or Touching Assistance-helper provides verbal cues and/or touching/steadying and/or contact guard assistance as patient completes activity. Assistance may be provided throughout the activity or intermittently. 3-Partial/Moderate Assistance-helper does LESS THAN HALF the effort. [place] lifts, holds or supports trunk or limbs, but provides less than half the effort. 2-Substantial/Maximal Assistance-helper does MORE THAN HALF the effort. [place] lifts or holds trunk or limbs and provides more than half the effort. 6-Zyhimsdke-iuaiqk does ALL the effort. Patient does none of the effort to complete the activity. Or, the assistance of 2 or more helpers is required for the patient to complete the activity. If activity was not attempted, code reason: 7-Patient Refused. 9-Not Applicable-not attempted and the patient did not perform the activity before the current illness, exacerbation or injury. 10-Not Attempted due to Environmental Limitations-(lack of equipment, weather restraints, etc.). 88-Not Attempted due to Medical Conditions or Safety Concerns. ADL PLOF Comments Per pt report, he lives alone but had difficulty managing ADLs. He is able to doff/don slip on shoes, difficulty with socks. He reports difficulty donning pants due to difficulty bending forward, and unable to complete belt due to limited shoulder ROM on R side. He has a tub/shower, no SC, and only completes showering standing up. He has a hard time managing IADLs, often leaving dishes in the sink for a week until he feels up to doing them. 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 Mental Status/Objective Patient Orientation: Person, Place, Situation Attachments: IV Current Glasses/Contacts: No Hearing Aids: No Dentures/Partials: No Hand Dominance: Left Upper Extremity ROM RUE shoulder flexion to approx 90 degrees, WFL at elbow/wrist/hand. LUE WFL, shoulder flexion ~150 degrees. Upper Extremity Coordination slightly decreased, neuropathy in hands. Upper Extremity Sensation slightly decreased, neuropathy in hands. Upper Extremity Strength grossly 3+/5 ADL-Treatment Eating (QC): 5 (assistance opening containers. Pt then able to eat without difficulty.) Oral Hygiene (QC): 5 (set up per clinical judgment. ) Upper Body Dressing (QC): 3 (min A with changing hospital gown due to IV.) Toileting Hygiene (QC): 6 (IND with urinal.) Other Treatments Pt in bed, agreeable to OT tx. Pt's hospital gown was dirty, min A required to don clean gown due to IV in R arm. Pt participated in UE screen, and provided information about PLOF/home set up. Pt declines ADLs at this time, has recently used the urinal without difficulty. He declined getting up to recliner at this time. OT educated pt on OT POC and benefits of continued OT tx in order to increase independence at home, he verbalized agreement. Per PT report, pt able to perform functional mobility 30' with FWW, CGA. Post tx, pt in bed, call light in reach and all needs met. Education OT Patient Education: Correct positioning, Energy conservation, Modified ADL techniques, Progress toward Goal/Update tx plan, Purpose of tx/functional activities, Rehab process Teaching Recipient: Patient Teaching Methods: Discussion Response to Teaching: Verbalize Understanding OT Skilled Nursing Goals Contour Band Saw Operator Vertical Goals Time Frame: Oct 03, 2021 Eating (QC): 6 Oral Hygiene (QC): 6 Toileting Hygiene (QC): 6 Shower/Bathe Self (QC): 4 Upper Body Dressing (QC): 6 Lower Body Dressing (QC): 4 On/Off Footwear (QC): 4 Additional Goals: 1-Demonstrate ADL Tasks, 2-Verbalize Understanding, 3- ImproveStrength/Makayla 1=Demonstrate adherence to instructed precautions during ADL tasks. 2=Patient will verbalize/demonstrate understanding of assistive de vices/modifications for ADL. 3=Patient will improve strength/tolerance for activity to enable patient to perform ADL's. OT Education/Plan Problem List/Assessment Assessment: Decreased Activ Tolerance, Decreased UE Strength, Impaired Coordination, Impaired Funct Balance, Impaired I ADL's, Impaired Self-Care Skills, Restricted Funct UE ROM Discharge Recommendations Plan/Recommendations: Continue POC Treatment Plan/Plan of Care Patient would benefit from OT for education, treatment and training to promote independence in ADL's, mobility, safety and/or upper extremity function for ADL's. Plan of Care: ADL Retraining, Functional Mobility, UE Funct Exercise/Act Treatment Duration: Oct 03, 2021 Frequency: 3 times per week (3-5 times per week) Agreement: Yes Rehab Potential: Fair Time/GCodes Start Time: 13:05 Stop Time: 13:16 Total Time Billed (hr/min): 11 Billed Treatment Time 1, OTIS LOERA OT Sep 26, 2021 13:29
[2021-09-26] MEDS: AtorvaSTATin TABLET 10 MG TABLET PO SCH (20:22)
[2021-09-26] MEDS: GABAPENTIN 600 MG (NEURONTIN) TAB PO SCH (20:22)
[2021-09-27] MEDS: NS IV 1000 ML 1,000 ML IV SCH ×2 (02:55→07:49)
[2021-09-27 05:56] LABS: BASOPHILS % (AUTO) 0 % (0-10); EOSINOPHILS # (AUTO) 0.1 10^3/uL (0.0-0.3); EOSINOPHILS % (AUTO) 2 % (0-10); HEMATOCRIT 29 % (40-54); HEMOGLOBIN 10.1 g/dL (13.3-17.7); LYMPHOCYTES # (AUTO) 1.7 10^3/uL (1.0-4.0); LYMPHOCYTES % (AUTO) 44 % (12-44); MEAN CORPUSCULAR HEMOGLOBIN 39 pg (25-34); MEAN CORPUSCULAR HGB CONC 35 g/dL (32-36); MEAN CORPUSCULAR VOLUME 110 fL (80-99); MEAN PLATELET VOLUME 10.2 fL (9.0-12.2); MONOCYTES # (AUTO) 0.4 10^3/uL (0.0-1.0); MONOCYTES % (AUTO) 11 % (0-12); NEUTROPHILS # (AUTO) 1.6 10^3/uL (1.8-7.8); NEUTROPHILS % (AUTO) 42 % (42-75); PLATELET COUNT 161 10^3/uL (130-400); WHITE BLOOD COUNT 3.9 10^3/uL (4.3-11.0)
--- NOTE | 2021-09-27 06:02 | Progress Note - Hospitalist ---
Subjective HPI/CC On Admission Date Seen by Provider: Sep 27, 2021 Time Seen by Provider: 09:00 CC: Hypotension with acute kidney injury HPI: This is a 51yoM who works at [employer] history of out of control Diabetes who presents to the ICU after work-up in the ER showed Hypotension and Acute Kidney Injury of 3.4. He received aggressive IV fluids; Hypotension resolved. Creatinine much improved at 1.88. Pt was deemed stable to transfer to 4th floor and restart home medication and activity. Subjective/Events-last exam Patient doing a lot better Very weak using a walker to walk with PT Blood sugars are elevated so we will increase insulin Hep-Lock IV fluid Overall much better Review of Systems General: Fatigue, Malaise Focused Exam Lactate Level 09/25/21 19:50: Lactic Acid Level 1.08 Objective Exam Vital Signs Vital Signs Date Time Temp Pulse Resp B/P (MAP) Pulse Ox O2 Delivery O2 Flow Rate FiO2 09/27/21 08:00 Room Air 09/27/21 07:25 37.1 77 18 130/62 96 09/25/21 23:41 21 Capillary Refill : Less Than 3 Seconds General Appearance: No Apparent Distress, WD/WN Respiratory: Chest Non Tender, Lungs Clear, Normal Breath Sounds, No Accessory Muscle Use, No Respiratory Distress Cardiovascular: Regular Rate, Rhythm, No Edema, No Gallop, No JVD, No Murmur, Normal Peripheral Pulses Neurologic/Psychiatric: Alert, Oriented x3, No Motor/Sensory Deficits, Normal Mood/Affect Results/Procedures Lab Laboratory Tests 09/27/21 05:35 Patient resulted labs reviewed. Assessment/Plan Assessment and Plan Assess & Plan/Chief Complaint Assessment: RUDI Hypotension not due to sepsis Dehydration DM on insulin Smoker Elevated troponin Plan: IVF Move to [facility] Supportive care Cardiology consult 09/27/2021: Supportive care PT and OT Hep-Lock IV fluid Increase insulin Critical Care Critically Ill Patient Diagnosis/Problems Diagnosis/Problems (1) RUDI (acute kidney injury) Status: Acute (2) Hypotension Status: Acute (3) Elevated troponin Status: Acute LUIS VELEZ DO Sep 27, 2021 06:02
[2021-09-27] MEDS: inSUlin ASPART (NovoLOG) 1 UNIT/0.01 ML (CHARGE PER UNIT) SC SCH ×4 (06:09→21:02)
[2021-09-27] MEDS: MULTIVIT W/MINERALS TAB (THERAGRAN M) PO SCH (06:09)
[2021-09-27 06:15] LABS: ALBUMIN 3.3 GM/DL (3.2-4.5); POTASSIUM 5.3 MMOL/L (3.6-5.0)
[2021-09-27 06:16] LABS: CALCIUM 8.5 MG/DL (8.5-10.1)
[2021-09-27 06:19] LABS: BILIRUBIN,TOTAL 0.3 MG/DL (0.1-1.0)
[2021-09-27 06:21] LABS: CREATININE SERUM 0.93 MG/DL (0.60-1.30)
[2021-09-27 06:24] LABS: MAGNESIUM 1.9 MG/DL (1.6-2.4)
[2021-09-27] MEDS: SENNOSIDES 8.6 MG (SENOKOT) TAB PO SCH ×2 (09:07→21:01)
[2021-09-27] MEDS: inSUlin ASPART (NovoLOG) 1 UNIT/0.01 ML (CHARGE PER UNIT) SQ SCH (09:07)
[2021-09-27] MEDS: GABAPENTIN 600 MG (NEURONTIN) TAB PO SCH ×2 (09:07→21:01)
[2021-09-27] MEDS: ASPIRIN E.C. 81 MG (ECOTRIN) TAB PO SCH (09:07)
[2021-09-27] MEDS: PANTOPRAZOLE 40 MG (PROTONIX) VIAL IV SCH (09:07)
[2021-09-27] MEDS: SERTRALINE 100 MG (ZOLOFT) TAB PO SCH (09:07)
[2021-09-27] MEDS: DOCUSATE SODIUM 100 MG (COLACE) CAP PO SCH ×2 (09:07→21:01)
--- NOTE | 2021-09-27 10:22 | Physical Therapy Daily Note ---
PT Daily Note-Current Subjective States that he is doing well and ready to walk. Transfers SCALE: Activities may be completed with or without assistive devices. 8-Phihispzkn-jvvdzhc completes the activity by him/herself with no assistance from a helper. 5-Set-up or Clean-up Assistance-helper sets up or cleans up; patient completes activity. [place] assists only prior to or following the activity. 4-Supervision or Touching Assistance-helper provides verbal cues and/or touching/steadying and/or contact guard assistance as patient completes activity. Assistance may be provided throughout the activity or intermittently. 3-Partial/Moderate Assistance-helper does LESS THAN HALF the effort. [place] lifts, holds or supports trunk or limbs, but provides less than half the effort. 2-Substantial/Maximal Assistance-helper does MORE THAN HALF the effort. [place] lifts or holds trunk or limbs and provides more than half the effort. 5-Mjzzoklmm-pdbjle does ALL the effort. Patient does none of the effort to complete the activity. Or, the assistance of 2 or more helpers is required for the patient to complete the activity. If activity was not attempted, code reason: 7-Patient Refused. 9-Not Applicable-not attempted and the patient did not perform the activity before the current illness, exacerbation or injury. 10-Not Attempted due to Environmental Limitations-(lack of equipment, weather restraints, etc.). 88-Not Attempted due to Medical Conditions or Safety Concerns. Sit to Stand (QC): 5 Weight Bearing Right Lower Extremity: Right Weight Bearing/Tolerated Left Lower Extremity: Left Weight Bearing/Tolerated Gait Training Does the Patient Walk?: Yes Distance: 300 Walk 10 feet (QC): 5 Walk 50 ft with 2 Turns(QC): 5 Walk 150 ft (QC): 5 Gait Persons Needed: 1 Gait Assistive Device: FWW Assessment Current Status: Excellent Progress Patient did well with gait. PT Nursing Home Goals Nursing Home Goals PT [place] Goals Time Frame: Oct 03, 2021 Roll Left & Right (QC): 6 Sit to Lying (QC): 6 Lying-Sitting on Side/Bed(QC): 6 Sit to Stand (QC): 6 Chair/Qun-tz-Jmbar Xfer(QC): 6 Walk 10 feet (QC): 6 Walk 50ft with 2 Turns (QC): 6 PT Plan Treatment/Plan Treatment Plan: Continue Plan of Care Treatment Plan: Bed Mobility, Education, Functional Activity Makayla, Functional Strength, Gait, Safety, Therapeutic Exercise, Transfers Treatment Duration: Oct 03, 2021 Frequency: 6 times per week Estimated Hrs Per Day: .25 hour per day Patient and/or Family Agrees t: Yes Time/GCodes Time In: 1005 Time Out: 1015 Total Billed Treatment Time: 10 Total Billed Treatment 1, GT x 10' MARY ALICE WILSON PT Sep 27, 2021 10:22
--- NOTE | 2021-09-27 15:58 | Cardiology Progress Note ---
Progress Note-Cardiology Events since last exam Date Seen by Provider: Sep 27, 2021 Time Seen by Provider: 15:57 Events since last exam We are following him due to elevated troponin level in the setting of hypote nsion and acute kidney injury. He denies chest discomfort, dyspnea, palpitations, syncope, or lower extremity edema. He wants to know when he can go home. Certain portions of this document may have been dictated utilizing voice recognition technology. Inherent to this technology, typographical and grammatical errors may exist. As much as I am diligent to identify and correct these mistakes, some errors may remain in the document. Vitals Last set of Vitals Signs Vital Signs 09/25/21 09/27/21 09/27/21 23:41 07:25 08:00 Temp 37.1 Pulse 77 Resp 18 B/P (MAP) 130/62 Pulse Ox 96 O2 Delivery Room Air FiO2 21 Labs Labs Laboratory Tests 09/27/21 05:35 Exam Vital Signs Vital Signs Date Time Temp Pulse Resp B/P (MAP) Pulse Ox O2 Delivery O2 Flow Rate FiO2 09/27/21 08:00 Room Air 09/27/21 07:25 37.1 77 18 130/62 96 09/25/21 23:41 21 Physical Exam General: Alert. No acute distress. Eye: No xanthelasma. HENT: Normocephalic. Neck: Jugular venous pressure does not appear elevated. Respiratory: Lungs are clear to auscultation. Respirations are non-labored. Breath sounds are equal. Symmetrical chest wall expansion. Cardiovascular: Normal rate. Regular rhythm. No murmur. No gallop. No edema. Gastrointestinal: Soft. Normal bowel sounds. Skin: Warm. Dry. Neurologic: Alert and oriented to person, place, time. Cranial nerves 3-11 grossly intact. Psychiatric: Cooperative. Appropriate mood & affect. Labs Laboratory Tests Test 09/26/21 20:09 09/27/21 05:35 09/27/21 06:02 09/27/21 11:21 Range/Units Glucometer 350 H 255 H 59 *L 70-110 MG/DL White Blood Count 3.9 L 4.3-11.0 10^3/uL Red Blood Count 2.59 L 4.30-5.52 10^6/uL Hemoglobin 10.1 L 13.3-17.7 g/dL Hematocrit 29 L 40-54 % Mean Corpuscular Volume 110 H 80-99 fL Mean Corpuscular Hemoglobin 39 H 25-34 pg Mean Corpuscular Hemoglobin Concent 35 32-36 g/dL Red Cell Distribution Width 11.9 10.0-14.5 % Platelet Count 161 130-400 10^3/uL Mean Platelet Volume 10.2 9.0-12.2 fL Immature Granulocyte % (Auto) 1 % Neutrophils (%) (Auto) 42 42-75 % Lymphocytes (%) (Auto) 44 12-44 % Monocytes (%) (Auto) 11 0-12 % Eosinophils (%) (Auto) 2 0-10 % Basophils (%) (Auto) 0 0-10 % Neutrophils # (Auto) 1.6 L 1.8-7.8 10^3/uL Lymphocytes # (Auto) 1.7 1.0-4.0 10^3/uL Monocytes # (Auto) 0.4 0.0-1.0 10^3/uL Eosinophils # (Auto) 0.1 0.0-0.3 10^3/uL Basophils # (Auto) 0.0 0.0-0.1 10^3/uL Immature Granulocyte # (Auto) 0.0 0.0-0.1 10^3/uL Sodium Level 140 135-145 MMOL/L Potassium Level 5.3 H 3.6-5.0 MMOL/L Chloride Level 110 H 98-107 MMOL/L Carbon Dioxide Level 23 21-32 MMOL/L Anion Gap 7 5-14 MMOL/L Blood Urea Nitrogen 17 7-18 MG/DL Creatinine 0.93 0.60-1.30 MG/DL Estimat Glomerular Filtration Rate 99 BUN/Creatinine Ratio 18 Glucose Level 263 H 70-105 MG/DL Calcium Level 8.5 8.5-10.1 MG/DL Corrected Calcium 9.1 8.5-10.1 MG/DL Magnesium Level 1.9 1.6-2.4 MG/DL Total Bilirubin 0.3 0.1-1.0 MG/DL Aspartate Amino Transf (AST/SGOT) 18 5-34 U/L Alanine Aminotransferase (ALT/SGPT) 17 0-55 U/L Alkaline Phosphatase 71 40-136 U/L Total Protein 6.0 L 6.4-8.2 GM/DL Albumin 3.3 3.2-4.5 GM/DL Test 09/27/21 11:23 09/27/21 11:27 09/27/21 12:17 09/27/21 15:42 Range/Units Glucometer 57 *L 45 *L 89 305 H 70-110 MG/DL Diagnosis/Problems Diagnosis/Problems (1) Elevated troponin Status: Acute Assessment & Plan: This was in the setting of hypotension and acute kidney injury. He may have suffered a small type II non-ST elevation myocardial infarction. He is not having any angina. We will continue guideline directed medical therapy. He is not currently on beta-eugenio due to the low blood pressure at the time of presentation. (2) Coronary artery disease without angina pectoris Assessment & Plan: As noted by Dr. Garcia, the patient had a previous cardiac catheterization showing moderate coronary artery disease. We will continue with aspirin and statin medication and consider adding low-dose beta-eugenio if his blood pressure will tolerate. (3) Primary hypertension Assessment & Plan: His blood pressure improved with intravenous fluid. I will restart lisinopril but at a lower dose than what he was taking at home. We will need to monitor his blood pressures closely. (4) Mixed hyperlipidemia Assessment & Plan: Continue statin medication. I added a lipid panel to previous blood work. (5) Type 2 diabetes mellitus with complication Assessment & Plan: This is being managed by the hospitalist. (6) Cigarette smoker Assessment & Plan: He has been encouraged to quit smoking and counseled in this regard. ALFREDITO POSADA JR, MD Sep 27, 2021 15:58
[2021-09-27 16:10] LABS: TRIGLYCERIDES 100 MG/DL (<150); VLDL CHOLESTEROL 20 MG/DL (5-40)
[2021-09-27 16:15] LABS: CHOLESTEROL 152 MG/DL (< 200)
[2021-09-27] MEDS ORDERED: lisINopril 5 MG (PRINIVIL) TABLET PO NR (16:15)
[2021-09-27 16:16] LABS: HDL CHOLESTEROL 53 MG/DL (40-60)
[2021-09-27] MEDS: AtorvaSTATin TABLET 10 MG TABLET PO SCH (21:01)
[2021-09-28 05:27] LABS: BASOPHILS % (AUTO) 0 % (0-10); EOSINOPHILS # (AUTO) 0.1 10^3/uL (0.0-0.3); EOSINOPHILS % (AUTO) 2 % (0-10); HEMATOCRIT 31 % (40-54); HEMOGLOBIN 10.9 g/dL (13.3-17.7); LYMPHOCYTES # (AUTO) 2.4 10^3/uL (1.0-4.0); LYMPHOCYTES % (AUTO) 53 % (12-44); MEAN CORPUSCULAR HEMOGLOBIN 39 pg (25-34); MEAN CORPUSCULAR HGB CONC 36 g/dL (32-36); MEAN CORPUSCULAR VOLUME 110 fL (80-99); MEAN PLATELET VOLUME 10.4 fL (9.0-12.2); MONOCYTES # (AUTO) 0.4 10^3/uL (0.0-1.0); MONOCYTES % (AUTO) 9 % (0-12); NEUTROPHILS # (AUTO) 1.6 10^3/uL (1.8-7.8); NEUTROPHILS % (AUTO) 35 % (42-75); PLATELET COUNT 196 10^3/uL (130-400); WHITE BLOOD COUNT 4.5 10^3/uL (4.3-11.0)
[2021-09-28 05:47] LABS: ALBUMIN 3.7 GM/DL (3.2-4.5); POTASSIUM 4.9 MMOL/L (3.6-5.0)
[2021-09-28 05:48] LABS: CALCIUM 9.2 MG/DL (8.5-10.1)
[2021-09-28 05:49] LABS: TOTAL PROTEIN 6.9 GM/DL (6.4-8.2)
[2021-09-28 05:51] LABS: BILIRUBIN,TOTAL 0.3 MG/DL (0.1-1.0)
[2021-09-28 05:53] LABS: CREATININE SERUM 1.02 MG/DL (0.60-1.30)
[2021-09-28 05:56] LABS: MAGNESIUM 1.9 MG/DL (1.6-2.4)
[2021-09-28] MEDS: MULTIVIT W/MINERALS TAB (THERAGRAN M) PO SCH (06:12)
[2021-09-28] MEDS: inSUlin ASPART (NovoLOG) 1 UNIT/0.01 ML (CHARGE PER UNIT) SC SCH ×2 (06:12→11:24)
--- NOTE | 2021-09-28 06:58 | Progress Note - Hospitalist ---
Subjective HPI/CC On Admission Date Seen by Provider: Sep 28, 2021 Time Seen by Provider: 10:00 CC: Hypotension with acute kidney injury HPI: This is a 51yoM who works at [employer] history of out of control Diabetes who presents to the ICU after work-up in the ER showed Hypotension and Acute Kidney Injury of 3.4. He received aggressive IV fluids; Hypotension resolved. Creatinine much improved at 1.88. Pt was deemed stable to transfer to 4th floor and restart home medication and activity. Focused Exam Lactate Level 09/25/21 19:50: Lactic Acid Level 1.08 Objective Exam Vital Signs Vital Signs Date Time Temp Pulse Resp B/P (MAP) Pulse Ox O2 Delivery O2 Flow Rate FiO2 09/28/21 08:18 36.4 64 18 130/69 95 Room Air 09/25/21 23:41 21 Capillary Refill : Less Than 3 Seconds Results/Procedures Lab Laboratory Tests 09/28/21 05:11 Patient resulted labs reviewed. Assessment/Plan Assessment and Plan Assess & Plan/Chief Complaint Assessment: RUDI Hypotension not due to sepsis Dehydration DM on insulin Smoker Elevated troponin Plan: IVF Move to 4th Supportive care Cardiology consult 09/27/2021: Supportive care PT and OT Hep-Lock IV fluid Increase insulin Critical Care Critically Ill Patient Diagnosis/Problems Diagnosis/Problems (1) RUDI (acute kidney injury) Status: Acute (2) Hypotension Status: Acute (3) Elevated troponin Status: Acute LUIS VELEZ DO Sep 28, 2021 06:57
[2021-09-28] MEDS ORDERED: lisINopril 5 MG (PRINIVIL) TABLET PO SCH (09:00)
[2021-09-28] MEDS: GABAPENTIN 600 MG (NEURONTIN) TAB PO SCH (09:48)
[2021-09-28] MEDS: SENNOSIDES 8.6 MG (SENOKOT) TAB PO SCH (09:48)
[2021-09-28] MEDS: ASPIRIN E.C. 81 MG (ECOTRIN) TAB PO SCH (09:48)
[2021-09-28] MEDS: DOCUSATE SODIUM 100 MG (COLACE) CAP PO SCH (09:48)
[2021-09-28] MEDS: PANTOPRAZOLE 40 MG (PROTONIX) VIAL IV SCH (09:49)
[2021-09-28] MEDS: inSUlin ASPART (NovoLOG) 1 UNIT/0.01 ML (CHARGE PER UNIT) SQ SCH (09:49)
[2021-09-28] MEDS: SERTRALINE 100 MG (ZOLOFT) TAB PO SCH (09:52)
[2021-09-28] MEDS ORDERED: PANTOPRAZOLE 40 MG (PROTONIX) TAB PO ONE (10:00)
[2021-09-28] MEDS ORDERED: PANTOPRAZOLE 40 MG (PROTONIX) TAB PO SCH (10:00)
--- NOTE | 2021-09-28 10:54 | Cardiology Progress Note ---
Progress Note-Cardiology Events since last exam Date Seen by Provider: Sep 28, 2021 Time Seen by Provider: 10:49 Events since last exam We are following him due to an abnormal troponin level. He denies chest pain, dyspnea, palpitations, syncope, or ankle edema. He wants to go home today. Certain portions of this document may have been dictated utilizing voice recognition technology. Inherent to this technology, typographical and grammatical errors may exist. As much as I am diligent to identify and correct these mistakes, some errors may remain in the document. Vitals Last set of Vitals Signs Vital Signs 09/25/21 09/28/21 23:41 08:18 Temp 36.4 Pulse 64 Resp 18 B/P (MAP) 130/69 Pulse Ox 95 O2 Delivery Room Air FiO2 21 Labs Labs Laboratory Tests 09/28/21 05:11 Exam Vital Signs Vital Signs Date Time Temp Pulse Resp B/P (MAP) Pulse Ox O2 Delivery O2 Flow Rate FiO2 09/28/21 08:18 36.4 64 18 130/69 95 Room Air 09/25/21 23:41 21 Physical Exam General: Alert. No acute distress. Eye: No xanthelasma. HENT: Normocephalic. Neck: Jugular venous pressure does not appear elevated. Respiratory: Lungs are clear to auscultation. Respirations are non-labored. Breath sounds are equal. Symmetrical chest wall expansion. Cardiovascular: Normal rate. Regular rhythm. No murmur. No gallop. No edema. Gastrointestinal: Soft. Normal bowel sounds. Skin: Warm. Dry. Neurologic: Alert and oriented to person, place, time. Cranial nerves 3-11 grossly intact. Psychiatric: Cooperative. Appropriate mood & affect. Labs Laboratory Tests Test 09/27/21 11:21 09/27/21 11:23 09/27/21 11:27 09/27/21 12:17 Range/Units Glucometer 59 *L 57 *L 45 *L 89 70-110 MG/DL Test 09/27/21 15:42 09/27/21 20:10 09/28/21 05:11 09/28/21 05:23 Range/Units Glucometer 305 H 295 H 207 H 70-110 MG/DL White Blood Count 4.5 4.3-11.0 10^3/uL Red Blood Count 2.77 L 4.30-5.52 10^6/uL Hemoglobin 10.9 L 13.3-17.7 g/dL Hematocrit 31 L 40-54 % Mean Corpuscular Volume 110 H 80-99 fL Mean Corpuscular Hemoglobin 39 H 25-34 pg Mean Corpuscular Hemoglobin Concent 36 32-36 g/dL Red Cell Distribution Width 11.8 10.0-14.5 % Platelet Count 196 130-400 10^3/uL Mean Platelet Volume 10.4 9.0-12.2 fL Immature Granulocyte % (Auto) 0 % Neutrophils (%) (Auto) 35 L 42-75 % Lymphocytes (%) (Auto) 53 H 12-44 % Monocytes (%) (Auto) 9 0-12 % Eosinophils (%) (Auto) 2 0-10 % Basophils (%) (Auto) 0 0-10 % Neutrophils # (Auto) 1.6 L 1.8-7.8 10^3/uL Lymphocytes # (Auto) 2.4 1.0-4.0 10^3/uL Monocytes # (Auto) 0.4 0.0-1.0 10^3/uL Eosinophils # (Auto) 0.1 0.0-0.3 10^3/uL Basophils # (Auto) 0.0 0.0-0.1 10^3/uL Immature Granulocyte # (Auto) 0.0 0.0-0.1 10^3/uL Sodium Level 139 135-145 MMOL/L Potassium Level 4.9 3.6-5.0 MMOL/L Chloride Level 107 98-107 MMOL/L Carbon Dioxide Level 22 21-32 MMOL/L Anion Gap 10 5-14 MMOL/L Blood Urea Nitrogen 19 H 7-18 MG/DL Creatinine 1.02 0.60-1.30 MG/DL Estimat Glomerular Filtration Rate 89 BUN/Creatinine Ratio 19 Glucose Level 239 H 70-105 MG/DL Calcium Level 9.2 8.5-10.1 MG/DL Corrected Calcium 9.4 8.5-10.1 MG/DL Magnesium Level 1.9 1.6-2.4 MG/DL Total Bilirubin 0.3 0.1-1.0 MG/DL Aspartate Amino Transf (AST/SGOT) 19 5-34 U/L Alanine Aminotransferase (ALT/SGPT) 19 0-55 U/L Alkaline Phosphatase 91 40-136 U/L Total Protein 6.9 6.4-8.2 GM/DL Albumin 3.7 3.2-4.5 GM/DL Diagnosis/Problems Diagnosis/Problems (1) Elevated troponin Status: Acute Assessment & Plan: This was in the setting of hypotension and acute kidney injury. He may have suffered a small type II non-ST elevation myocardial infarction. He is not having any angina. We will continue guideline directed medical therapy. He is not currently on beta-eugenio due to the low blood press ure at the time of presentation. From a cardiac standpoint, he can be discharged home today. I placed an order for the hospital staff to get him a follow-up appointment with Dr. Garcia in the office in 1 month. When he is discharged, he should be discharged on the cardiac medications as he is taking here in the hospital at the current time. This includes a reduced dose of lisinopril, the addition of metoprolol succinate and a higher dose of atorvastatin. (2) Coronary artery disease without angina pectoris Assessment & Plan: As noted by Dr. Garcia, the patient had a previous cardiac catheterization showing moderate coronary artery disease. We will continue with aspirin and statin medication. I have ordered low-dose metoprolol succinate and he should be discharged with this. (3) Primary hypertension Assessment & Plan: His blood pressure improved with intravenous fluid at the time of admission. I restarted lisinopril but at a lower dose than what he was taking at home. I have also ordered low-dose beta-eugenio in light of his coronary artery disease. (4) Mixed hyperlipidemia Assessment & Plan: His LDL level is slightly above goal given his known history of coronary artery disease with coexisting diabetes mellitus. I will double his dose of atorvastatin. (5) Type 2 diabetes mellitus with complication Assessment & Plan: This is being managed by the hospitalist. (6) Cigarette smoker Assessment & Plan: He has been encouraged to quit smoking and counseled in this regard. He reports that he is not sure if he will be able to quit smoking. ALFREDITO POSADA JR, MD Sep 28, 2021 10:54
--- NOTE | 2021-09-28 11:16 | Discharge Summary ---
Discharge Summary Hospital Course Was the Problem List Reviewed?: Yes Problems/Dx: (1) Elevated troponin Status: Acute (2) Coronary artery disease without angina pectoris (3) Primary hypertension (4) Mixed hyperlipidemia (5) Type 2 diabetes mellitus with complication (6) Cigarette smoker Hospital Course Date of Admission: Sep 25, 2021 at 21:34 Admission Diagnosis : Family Physician/Provider: Russell Friedman MD Date of Discharge: 09/28/21 Discharge Diagnosis: Hypotension due to hypovolemia, acute kidney injury, dehydration, diabetes [id number], elevated troponin without ACS Hospital Course: Patient had an uneventful hospital course after he was admitted to the ICU for hypotension given IV fluids for creatinine of 3.4 which resolved with aggressive IV fluid resuscitation. Hypotension resolved. Diabetes was managed with insulin. PT and OT ordered patient was very weak a walker was ordered at discharge. Patient will have close follow-up with PCP. Labs and Pending Lab Test: Laboratory Tests 09/27/21 11:21: Glucometer 59*L 09/27/21 11:23: Glucometer 57*L 09/27/21 11:27: Glucometer 45*L 09/27/21 12:17: Glucometer 89 09/27/21 15:42: Glucometer 305H 09/27/21 20:10: Glucometer 295H 09/28/21 05:11: White Blood Count 4.5, Red Blood Count 2.77L, Hemoglobin 10.9L, Hematocrit 31L, Mean Corpuscular Volume 110H, Mean Corpuscular Hemoglobin 39H, Mean Corpuscular Hemoglobin Concent 36, Red Cell Distribution Width 11.8, Platelet Count 196, Mean Platelet Volume 10.4, Immature Granulocyte % (Auto) 0, Neutrophils (%) (Auto) 35L, Lymphocytes (%) (Auto) 53H, Monocytes (%) (Auto) 9, Eosinophils (%) (Auto) 2, Basophils (%) (Auto) 0, Neutrophils # (Auto) 1.6L, Lymphocytes # (Auto) 2.4, Monocytes # (Auto) 0.4, Eosinophils # (Auto) 0.1, Basophils # (Auto) 0.0, Immature Granulocyte # (Auto) 0.0, Sodium Level 139, Potassium Level 4.9, Chloride Level 107, Carbon Dioxide Level 22, Anion Gap 10, Blood Urea Nitrogen 19H, Creatinine 1.02, Estimat Glomerular Filtration Rate 89, BUN/Creatinine Ratio 19, Glucose Level 239H, Calcium Level 9.2, Corrected Calcium 9.4, Magnesium Level 1.9, Total Bilirubin 0.3, Aspartate Amino Transf (AST/SGOT) 19, Alanine Aminotransferase (ALT/SGPT) 19, Alkaline Phosphatase 91, Total Protein 6.9, Albumin 3.7 09/28/21 05:23: Glucometer 207H 09/28/21 11:01: Glucometer 198H Microbiology 09/25/21 MRSA Screen - Final, Complete MRSA not isolated Home Meds Active Reported Nabumetone 500 Mg Tablet 500 Mg PO BID PRN Sildenafil Citrate 50 Mg Tablet 50 Mg PO DAILY PRN Calcium 1,000 + D3 Caplet (Calcium Carbonate/Vitamin D3) 1,000 Mg-20 Tablet 1 Each PO DAILY Healthy Eyes Tablet (Vit A,C & E/Lutein/Minerals) 300MCG-200 Tablet 1 Each PO DAILY One Daily Multivitamin Tablet (Multivitamin with Folic Acid) 400 Mcg Tablet 400 Mcg PO DAILY Lisinopril 5 Mg Tablet 5 Mg PO DAILY Tramadol HCl 50 Mg Tablet 50 Mg PO TID PRN Gabapentin 600 Mg Tablet 600 Mg PO BID Glipizide 5 Mg Tablet 5 Mg PO BID Levemir Flextouch (Insulin Detemir) 100 Unit/Ml (3 Ml) Insuln.pen 20 Unit SQ HS LAST FILLED 12-08-2020 #5 PENS/75 DAY SUPPLY Novolog Flexpen (Insulin Aspart) 100 Unit/Ml (3 Ml) Solution 12 Units SQ DAILY LAST FILLED 05-09-2021 #5 PENS/125 DAY SUPPLY Sertraline HCl 100 Mg Tablet 100 Mg PO DAILY Simvastatin 20 Mg Tablet 20 Mg PO DAILY Protonix (Pantoprazole Sodium) 40 Mg Tablet.dr 40 Mg PO DAILY PRN Assessment/Pt Instructions PCP in 1 week Discharge Planning: <30 minutes discharge planning Discharge Instructions Discharge Diet: ADA Diet Activity as Tolerated: Yes Discharge Physical Examination Vital Signs Vital Signs Date Time Temp Pulse Resp B/P (MAP) Pulse Ox O2 Delivery O2 Flow Rate FiO2 09/28/21 08:18 36.4 64 18 130/69 95 Room Air 09/25/21 23:41 21 General Appearance: No Apparent Distress, WD/WN, Chronically ill Allergies: Coded Allergies: No Known Drug Allergies (Unverified , 10/26/13) Discharge Summary Date of Admission Sep 25, 2021 at 21:34 Date of Discharge Discharge Date: Sep 28, 2021 Admission Diagnosis Assessment: RUDI Hypotension not due to sepsis Dehydration DM on insulin Smoker Elevated troponin Plan: IVF Move to 4th Supportive care Cardiology consult Discharge Diagnosis Assessment: RUDI Hypotension not due to sepsis Dehydration DM on insulin Smoker Elevated troponin Plan: IVF Move to 4th Supportive care Cardiology consult 09/27/2021: Supportive care PT and OT Hep-Lock IV fluid Increase insulin (1) Elevated troponin Status: Acute Assessment & Plan: This was in the setting of hypotension and acute kidney injury. He may have suffered a small type II non-ST elevation myocardial infarction. He is not having any angina. We will continue guideline directed medical therapy. He is not currently on beta-eugenio due to the low blood pressure at the time of presentation. From a cardiac standpoint, he can be discharged home today. I placed an order for the hospital staff to get him a follow-up appointment with Dr. Garcia in the office in 1 month. When he is discharged, he should be discharged on the cardiac medications as he is taking here in the hospital at the current time. This includes a reduced dose of lisinopril, the addition of metoprolol succinate and a higher dose of atorvastatin. (2) Coronary artery disease without angina pectoris Assessment & Plan: As noted by Dr. Garcia, the patient had a previous cardiac catheterization showing moderate coronary artery disease. We will continue with aspirin and statin medication. I have ordered low-dose metoprolol succinate and he should be discharged with this. (3) Primary hypertension Assessment & Plan: His blood pressure improved with intravenous fluid at the time of admission. I restarted lisinopril but at a lower dose than what he was taking at home. I have also ordered low-dose beta-eugenio in light of his coronary artery disease. (4) Mixed hyperlipidemia Assessment & Plan: His LDL level is slightly above goal given his known history of coronary artery disease with coexisting diabetes mellitus. I will double his dose of atorvastatin. (5) Type 2 diabetes mellitus with complication Assessment & Plan: This is being managed by the hospitalist. (6) Cigarette smoker Assessment & Plan: He has been encouraged to quit smoking and counseled in this regard. He reports that he is not sure if he will be able to quit smoking. LUIS VELEZ DO Sep 28, 2021 11:16
[2021-09-28 12:00] VITALS: BP 130/69
[2021-09-28] MEDS ORDERED: AtorvaSTATin TABLET 10 MG TABLET PO SCH (21:00)
[2021-09-29] MEDS ORDERED: PANTOPRAZOLE 40 MG (PROTONIX) TAB PO SCH (09:00)
== END 2021-09-28 12:15 | disposition home or self-care (01) | DRG 682 ==
LOC: EDUNIT# 19:26 → ER 19:28 → ICU 21:34 → 4TH 09-26 15:47
PROVIDERS: ADMIT Internal Medicine; ATTEND Internal Medicine
PROC: 05HS33Z Insertion of Infusion Device into Left Vertebral Vein, Percutaneous Approach (ICD-10-PCS; principal; 2021-09-25)
DX: N17.9 Acute kidney failure, unspecified (principal); I21.A1 Myocardial infarction type 2; I95.9 Hypotension, unspecified; I12.9 Hypertensive chronic kidney disease with stage 1 through stage 4 chronic kidney disease, or unspecified chronic kidney disease; E11.22 Type 2 diabetes mellitus with diabetic chronic kidney disease; E11.65 Type 2 diabetes mellitus with hyperglycemia; N18.30 Chronic kidney disease, stage 3 unspecified; E11.40 Type 2 diabetes mellitus with diabetic neuropathy, unspecified; Z20.822 Contact with and (suspected) exposure to COVID-19; I25.10 Atherosclerotic heart disease of native coronary artery without angina pectoris; E78.2 Mixed hyperlipidemia; J45.909 Unspecified asthma, uncomplicated; E86.0 Dehydration; E87.5 Hyperkalemia; F17.210 Nicotine dependence, cigarettes, uncomplicated; M19.91 Primary osteoarthritis, unspecified site; Z79.4 Long term (current) use of insulin; Z79.84 Long term (current) use of oral hypoglycemic drugs
CPT/HCPCS: 36415; 71045; 74018; 80053; 80061; 80320; 82010; 82947; 83036; 83605; 83690; 83735; 84100; 84484; 85025; 87081; 87636; 93005

== ENCOUNTER 2022-05-21 17:24 | Emergency (ER) | payer SELFPAY ==
[~2022-05-21] VITALS: Ht 172.7 cm; Wt 77.0 kg
[~2022-05-21 17:24] MED LIST changes: +ALBU8.5H6 IH; +NABU500T8 PO; -RT-ALBUINH IH
[2022-05-21] MEDS ORDERED: IBUPROFEN 800 MG (MOTRIN) TAB PO STA (18:11)
--- NOTE | 2022-05-21 18:11 | ED Lower Extremity ---
General Chief Complaint: Lower Extremity Stated Complaint: SWOLLEN LEG Nursing Triage Note: PT AMB TO ED BY POV WITH C/O LLE SWELLING. PT REPORTS PAIN AND SWELLING FROM L KNEE DOWN X 2 DAYS. DENIES INJURY. ([address]) History of Present Illness Date Seen by Provider: May 21, 2022 Time Seen by Provider: 17:30 Initial Comments 52 year old male presents with left knee pain. It has been symptomatic for the last 2-3 days. He stands at work and this causes more swelling in his left leg. No history of injuries. Complains of popliteal pain and swelling in left knee. No history of DVTs. Onset: yesterday Pain/Injury Location: left leg, left knee Method of Injury: unknown ([address]) Allergies and Home Medications Allergies Coded Allergies: No Known Drug Allergies (Unverified , 02/04/13) Patient Home Medication List Home Medication List Reviewed: Yes ([address]) Calcium Carbonate/Vitamin D3 (Calcium 1,000 + D3 Caplet) 1,000 Mg-20 Tablet, 1 EACH PO DAILY, (Reported) Entered as Reported by: MARI VAZQUEZ on 09/12/21 1331 Gabapentin (Gabapentin) 600 Mg Tablet, 600 MG PO BID, (Reported) Entered as Reported by: MARI VAZQUEZ on 09/12/21 1326 Glipizide (Glipizide) 5 Mg Tablet, 5 MG PO BID, (Reported) Entered as Reported by: MARI VAZQUEZ on 09/12/21 1325 Insulin Aspart (Novolog Flexpen) 100 Unit/Ml (3 Ml) Solution, 12 UNITS SQ DAILY, (Reported) Entered as Reported by: MARI VAZQUEZ on 09/12/21 1323 Insulin Detemir (Levemir Flextouch) 100 Unit/Ml (3 Ml) Insuln.pen, 20 UNIT SQ HS, (Reported) Entered as Reported by: MARI VAZQUEZ on 09/12/21 1324 Lisinopril (Lisinopril) 5 Mg Tablet, 5 MG PO DAILY, (Reported) Entered as Reported by: MARI VAZQUEZ on 09/12/21 1328 Multivitamin with Folic Acid (One Daily Multivitamin Tablet) 400 Mcg Tablet, 400 MCG PO DAILY, (Reported) Entered as Reported by: MARI VAZQUEZ on 09/12/21 1329 Nabumetone (Nabumetone) 500 Mg Tablet, 500 MG PO BID PRN for PAIN-MILD (1-4), (Reported) Entered as Reported by: ELIEZER MOSS on 09/26/21 1145 Pantoprazole Sodium (Protonix) 40 Mg Tablet.dr, 40 MG PO DAILY PRN for HEARTBURN, (Reported) Entered as Reported by: JAEL LOPEZ on 01/13/18 1030 Sertraline HCl (Sertraline HCl) 100 Mg Tablet, 100 MG PO DAILY, (Reported) Entered as Reported by: MARI VAZQUEZ on 09/12/21 1322 Sildenafil Citrate (Sildenafil Citrate) 50 Mg Tablet, 50 MG PO DAILY PRN for ERECTILE DYSFUNCTION, (Reported) Entered as Reported by: MARI VAZQUEZ on 09/12/21 1337 Simvastatin (Simvastatin) 20 Mg Tablet, 20 MG PO DAILY, (Reported) Entered as Reported by: JAEL LOPEZ on 01/13/18 1040 Tramadol HCl (Tramadol HCl) 50 Mg Tablet, 50 MG PO TID PRN for PAIN-MODERATE (5- 7), (Reported) Entered as Reported by: MARI VAZQUEZ on 09/12/21 1327 Vit A,C & E/Lutein/Minerals (Healthy Eyes Tablet) 300MCG-200 Tablet, 1 EACH PO DAILY, (Reported) Entered as Reported by: MARI VAZQUEZ on 09/12/21 1330 Review of Systems Constitutional: no symptoms reported, see HPI Musculoskeletal: see HPI, joint pain (left knee), joint swelling ([address]) All Other Systems Reviewed Negative Unless Noted: Yes ([address]) Past Ldzhwyg-Wqkxin-Ogwuas Hx Patient Social History Tobacco Use?: Yes Tobacco type used: Cigarettes Smoking Status: Current Everyday Smoker Use of E-Cig and/or Vaping dev: No Substance use?: No Alcohol Use?: Yes Alcohol type: Beer Alcohol Frequency: Daily Pt feels they are or have been: No ([address]) Immunizations Up To Date Tetanus Booster (TDap): Unknown Influenza Vaccine Up-to-Date: No; Not Current First/Initial COVID19 Vaccinat: X3 Second COVID19 Vaccination Ted: X3 Third COVID19 Vaccination Date: X3 ([address]) Seasonal Allergies Seasonal Allergies: No ([address]) Past Medical History Surgery/Hospitalization HX: DM2 Surgeries: No Respiratory: Yes Asthma Cardiac: No High Cholesterol, Hypertension Neurological: Yes (NEUROPATHY IN HANDS AND FEET) Neuropathy Reproductive Disorders: No Sexually Transmitted Disease: No HIV/AIDS: No Genitourinary: No Gastrointestinal: No Musculoskeletal: Yes (R knee) Arthritis Endocrine: Yes Diabetes, Insulin dep HEENT: No Cancer: No Psychosocial: No Integumentary: No Blood Disorders: No Adverse Reaction/Blood Tranf: No ([address]) Family Medical History Reviewed Nursing Family Hx ([address]) No Pertinent Family Hx ([address]) Physical Exam Vital Signs Vital Signs - First Documented 05/21/22 17:29 Temp 36.8 Pulse 92 Resp 18 B/P (MAP) 129/84 (99) Pulse Ox 98 O2 Delivery Room Air (REENA,DAMION K DO) Vital Signs Capillary Refill : Less Than 3 Seconds ([address]) Height, Weight, BMI Height: 5'8.00" Weight: 153lbs. 1.0oz. [id number]; 25.00 BMI Method:Stated General Appearance: WD/WN, no apparent distress Cardiovascular: normal peripheral pulses, regular rate, rhythm Respiratory: chest non-tender, lungs clear, normal breath sounds Knees: left knee normal range of motion, left knee joint effusion, left knee pain (popliteal), left knee swelling, left knee other (neg Eric's. Popliteal cyst present. ) Neurologic/Psychiatric: no motor/sensory deficits, alert, normal mood/affect, oriented x 3 Skin: normal color, warm/dry ([address]) Progress/Results/Core Measures Results/Orders Vital Signs/I&O 05/21/22 05/21/22 17:29 18:46 Temp 36.8 36.8 Pulse 92 90 Resp 18 18 B/P (MAP) 129/84 (99) 122/78 Pulse Ox 98 99 O2 Delivery Room Air Room Air (REENA,DAMION K DO) Blood Pressure Mean: 99 Diagnostic Imaging Diagonstic Imaging: Xray Plain Films/CT/US/NM/MRI: knee Comments NAME: KEN SWANSON REC#: [id number] PT STATUS: REG ER : 1970 PHYSICIAN: [address] ADMIT DATE: 05/21/22/ER Draft Date of Exam:05/21/22 KNEE, LEFT, 3 VIEWS HISTORY: Left knee pain. TECHNIQUE: 3 views of the left knee. COMPARISON: None. FINDINGS: No acute fracture or dislocation is seen in the left knee. Alignment is normal. Joint spaces are preserved. No significant joint effusion is seen. There is calcific atherosclerosis, greater than expected for age. IMPRESSION: No acute osseous abnormality is seen in the left knee. Dictated on workstation # [id number] Dict: 05/21/228 Trans: 05/21/22 182 MERGED WITH [facility] [id number] Interpreted by: FREDERICK ROBERT MD Electronically signed by: Reviewed: Reviewed by Me ([address]) Departure Impression Primary Impression: Popliteal cyst Qualified Codes: M71.22 - Synovial cyst of popliteal space [River], left knee Additional Impression: Left knee pain Qualified Codes: M25.562 - Pain in left knee Disposition: 01 HOME, SELF-CARE Condition: Improved Departure-Patient Inst. Decision time for Depature: 18:00 ([address]) Referrals: ALFREDITO MCINTYRE MD (PCP/Family) Primary Care Physician Patient Instructions: River's (Popliteal) Cyst, Knee Pain (DC) Add. Discharge Instructions: Alternate heat and ice to left knee. Jorge wrap to left knee Ibuprofen 600 mg every 8 hours for left knee. Follow up with primary care provider, if symptoms are not improving or worsen. All discharge instructions reviewed with patient and/or family. Voiced understanding. ATTENDING PHYSICIAN NOTE: I WAS PHYSICALLY PRESENT ER PHYSICIAN, BUT I WAS NOT INVOLVED IN ANY DECISION MAKING OR ANY CARE OF THIS PATIENT, AND I AM NOT COLLABORATING PHYSICIAN. (DAMION VALLES DO) [address] May 21, 2022 18:11 DAMION VALLES DO May 22, 2022 01:56
--- NOTE | 2022-05-21 18:24 | Diagnostic Imaging Report ---
HISTORY: Left knee pain. TECHNIQUE: 3 views of the left knee. COMPARISON: None. FINDINGS: No acute fracture or dislocation is seen in the left knee. Alignment is normal. Joint spaces are preserved. No significant joint effusion is seen. There is calcific atherosclerosis, greater than expected for age. IMPRESSION: No acute osseous abnormality is seen in the left knee. Dictated by: Dictated on workstation # [id number]
[2022-05-21 18:46] VITALS: BP 122/78
== END 2022-05-21 18:46 | disposition home or self-care (01) ==
LOC: EDUNIT# 17:24 → ER 17:25
DX: M71.22 Synovial cyst of popliteal space [Baker], left knee (principal); F17.210 Nicotine dependence, cigarettes, uncomplicated
CPT/HCPCS: 73562

== ENCOUNTER 2022-06-01 16:31 | Emergency (ER) | payer SELFPAY ==
[~2022-06-01] VITALS: Ht 172 cm; Wt 80.7 kg
--- NOTE | 2022-06-01 16:47 | ED Dyspnea ---
General Chief Complaint: Respiratory Problems Stated Complaint: SWELLING ALL OVER - SOA History of Present Illness Date Seen by Provider: Jun 01, 2022 Time Seen by Provider: 16:47 Initial Comments 52-year-old male presents with shortness of breath this been going on for about 10 days. He feels like he is having hard time catching his breath that he is "swollen all over" patient denies legs. Patient reports that started after he got his flu and COVID shot at the same time. Patient denies any fever, chills, cough. Patient reports that he was recently started on lisinopril but does not believe he is on a water pill. Allergies and Home Medications Allergies Coded Allergies: No Known Drug Allergies (Unverified , 02/04/13) Patient Home Medication List Home Medication List Reviewed: Yes Calcium Carbonate/Vitamin D3 (Calcium 1,000 + D3 Caplet) 1,000 Mg-20 Tablet, 1 EACH PO DAILY, (Reported) Entered as Reported by: MARI VAZQUEZ on 09/12/21 1331 Furosemide (Lasix) 20 Mg Tablet, 20 MG PO DAILY Prescribed by: WILL RUIZ on 06/01/22 1752 Gabapentin (Gabapentin) 600 Mg Tablet, 600 MG PO BID, (Reported) Entered as Reported by: MARI VAZQUEZ on 09/12/21 1326 Glipizide (Glipizide) 5 Mg Tablet, 5 MG PO BID, (Reported) Entered as Reported by: MARI VAZQUEZ on 09/12/21 1325 Insulin Aspart (Novolog Flexpen) 100 Unit/Ml (3 Ml) Solution, 12 UNITS SQ DAILY, (Reported) Entered as Reported by: MARI VAZQUEZ on 09/12/21 1323 Insulin Detemir (Levemir Flextouch) 100 Unit/Ml (3 Ml) Insuln.pen, 20 UNIT SQ HS, (Reported) Entered as Reported by: MARI VAZQUEZ on 09/12/21 1324 Lisinopril (Lisinopril) 5 Mg Tablet, 5 MG PO DAILY, (Reported) Entered as Reported by: MARI VAZQUEZ on 09/12/21 1328 Multivitamin with Folic Acid (One Daily Multivitamin Tablet) 400 Mcg Tablet, 400 MCG PO DAILY, (Reported) Entered as Reported by: MARI VAZQUEZ on 09/12/21 1329 Nabumetone (Nabumetone) 500 Mg Tablet, 500 MG PO BID PRN for PAIN-MILD (1-4), (Reported) Entered as Reported by: ELIEZER MOSS on 09/26/21 1145 Pantoprazole Sodium (Protonix) 40 Mg Tablet.dr, 40 MG PO DAILY PRN for HEARTBURN, (Reported) Entered as Reported by: JAEL LOPEZ on 01/13/18 1030 Sertraline HCl (Sertraline HCl) 100 Mg Tablet, 100 MG PO DAILY, (Reported) Entered as Reported by: MARI VAZQUEZ on 09/12/21 1322 Sildenafil Citrate (Sildenafil Citrate) 50 Mg Tablet, 50 MG PO DAILY PRN for ERECTILE DYSFUNCTION, (Reported) Entered as Reported by: MARI VAZQUEZ on 09/12/21 1337 Simvastatin (Simvastatin) 20 Mg Tablet, 20 MG PO DAILY, (Reported) Entered as Reported by: JAEL LOPEZ on 01/13/18 1040 Tramadol HCl (Tramadol HCl) 50 Mg Tablet, 50 MG PO TID PRN for PAIN-MODERATE (5- 7), (Reported) Entered as Reported by: MARI VAZQUEZ on 09/12/21 1327 Vit A,C & E/Lutein/Minerals (Healthy Eyes Tablet) 300MCG-200 Tablet, 1 EACH PO DAILY, (Reported) Entered as Reported by: MARI VAZQUEZ on 09/12/21 1330 Review of Systems Review of Systems Constitutional: No chills, No fever, No malaise EENTM: no symptoms reported Respiratory: No cough, No orthopnea; short of breath Cardiovascular: No chest pain; edema; No palpitations Gastrointestinal: no symptoms reported Genitourinary: no symptoms reported Musculoskeletal: no symptoms reported Skin: no symptoms reported Psychiatric/Neurological: No Symptoms Reported Past Ctvaedf-Sodgzz-Xdxlog Hx Immunizations Up To Date Tetanus Booster (TDap): Unknown First/Initial COVID19 Vaccinat: X3 Second COVID19 Vaccination Ted: X3 Third COVID19 Vaccination Date: X3 Seasonal Allergies Seasonal Allergies: No Past Medical History Surgery/Hospitalization HX: DM2 Surgeries: No Respiratory: Yes Asthma Cardiac: No High Cholesterol, Hypertension Neurological: Yes (NEUROPATHY IN HANDS AND FEET) Neuropathy Reproductive Disorders: No Sexually Transmitted Disease: No HIV/AIDS: No Genitourinary: No Gastrointestinal: No Musculoskeletal: Yes (R knee) Arthritis Endocrine: Yes Diabetes, Insulin dep HEENT: No Cancer: No Psychosocial: No Integumentary: No Blood Disorders: No Adverse Reaction/Blood Tranf: No Family Medical History No Pertinent Family Hx Physical Exam Vital Signs Vital Signs - First Documented 06/01/22 16:47 Temp 36.9 Pulse 94 Resp 16 B/P (MAP) 156/97 (116) Pulse Ox 16 Capillary Refill : Height, Weight, BMI Height: 5'8.00" Weight: 153lbs. 1.0oz. 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 Norm as Tested Skin: Normal Color, Warm/Dry Progress/Results/Core Measures Results/Orders Lab Results Laboratory Tests Test 06/01/22 16:56 Range/Units White Blood Count 3.8 L 4.3-11.0 10^3/uL Red Blood Count 2.71 L 4.30-5.52 10^6/uL Hemoglobin 10.6 L 13.3-17.7 g/dL Hematocrit 33 L 40-54 % Mean Corpuscular Volume 120 H 80-99 fL Mean Corpuscular Hemoglobin 39 H 25-34 pg Mean Corpuscular Hemoglobin Concent 33 32-36 g/dL Red Cell Distribution Width 13.7 10.0-14.5 % Platelet Count 144 130-400 10^3/uL Mean Platelet Volume 10.9 9.0-12.2 fL Immature Granulocyte % (Auto) 0 % Neutrophils (%) (Auto) 57 42-75 % Lymphocytes (%) (Auto) 32 12-44 % Monocytes (%) (Auto) 10 0-12 % Eosinophils (%) (Auto) 0 0-10 % Basophils (%) (Auto) 0 0-10 % Neutrophils # (Auto) 2.1 1.8-7.8 10^3/uL Lymphocytes # (Auto) 1.2 1.0-4.0 10^3/uL Monocytes # (Auto) 0.4 0.0-1.0 10^3/uL Eosinophils # (Auto) 0.0 0.0-0.3 10^3/uL Basophils # (Auto) 0.0 0.0-0.1 10^3/uL Immature Granulocyte # (Auto) 0.0 0.0-0.1 10^3/uL Sodium Level 141 135-145 MMOL/L Potassium Level 5.4 H 3.6-5.0 MMOL/L Chloride Level 107 98-107 MMOL/L Carbon Dioxide Level 24 21-32 MMOL/L Anion Gap 10 5-14 MMOL/L Blood Urea Nitrogen 10 7-18 MG/DL Creatinine 1.09 0.60-1.30 MG/DL Estimat Glomerular Filtration Rate 82 BUN/Creatinine Ratio 9 Glucose Level 374 H 70-105 MG/DL Calcium Level 8.7 8.5-10.1 MG/DL Troponin I 0.339 *H <0.028 NG/ML B-Type Natriuretic Peptide 2437.5 H <100.0 PG/ML My Orders Orders - RUIZ,WILL L DO Basic Metabolic Panel (06/01/22 16:47) Bnp [place] (06/01/22 16:47) Cbc With Automated Diff (06/01/22 16:47) Troponin I [place] (06/01/22 16:47) Chest Pa/Lat (2 View) (06/01/22 16:47) Ekg Tracing (06/01/22 16:47) Monitor-Rhythm Ecg Trace Only (06/01/22 16:47) Vital Signs/I&O 06/01/22 06/01/22 16:47 18:02 Temp 36.9 Pulse 94 92 Resp 16 16 B/P (MAP) 156/97 (116) 138/99 Pulse Ox 16 98 Progress Progress Note : Progress Note Patient with mild bilateral pedal edema with dyspnea. His chest x-ray is normal. Patient's oxygen on room air is in the upper 90s throughout his stay. He does have a slight elevation of his BNP from previous. Patient has elevated troponin however this was reviewed along with previous cardiology notes x2 which he had been admitted and evaluated due to elevated troponin. Both times following evaluation-medical management was recommended. At this time we will treat him with 20 mg Lasix since he currently not on a diuretic. I did discuss with him the need to follow-up with his primary care provider in a couple days for repeat of his labs and to recheck his symptoms. Patient should continue his medical management of his elevated troponin with his current medications. Patient was stable and discharged Initial ECG Impression Date: Jun 01, 2022 Initial ECG Impression Time: 16:55 Initial ECG Rate: 91 Initial ECG Rhythm: Normal Sinus Comment sinus rhythm, no acute st changes. RBBB Diagnostic Imaging Diagonstic Imaging: Xray Plain Films/CT/US/NM/MRI: chest Comments Date of Exam:06/01/22 CHEST PA/LAT (2 VIEW) INDICATION: Weight gain and shortness of air. FINDINGS: Heart size is within normal limits. There is no overt failure pattern. There is some flattening of the diaphragms. This may be air trapping or an aggressive inspiratory volume. IMPRESSION: No acute-appearing abnormality. Reviewed: [facility] Impression Primary Impression: Edema Qualified Codes: R60.9 - Edema, unspecified Additional Impression: Dyspnea Qualified Codes: R06.00 - Dyspnea, unspecified Disposition: HOME, SELF-CARE Condition: Stable Departure-Patient Inst. Referrals: ALFREDITO MCINTYRE MD (PCP/Family) Primary Care Physician Patient Instructions: Dependent Edema (DC), Shortness of Breath (Dyspnea) Add. Discharge Instructions: Lease follow-up with your primary care provider within the week for recheck of your symptoms and ensure you are improving All discharge instructions reviewed with patient and/or family. Voiced understanding. Scripts Furosemide (Lasix) 20 Mg Tablet 20 MG PO DAILY, #10 TAB Prov: WILL RUIZ DO 06/01/22 WILL RUIZ DO Jun 01, 2022 16:47
[2022-06-01 17:02] LABS: BASOPHILS % (AUTO) 0 % (0-10); EOSINOPHILS % (AUTO) 0 % (0-10); HEMATOCRIT 33 % (40-54); HEMOGLOBIN 10.6 g/dL (13.3-17.7); LYMPHOCYTES # (AUTO) 1.2 10^3/uL (1.0-4.0); LYMPHOCYTES % (AUTO) 32 % (12-44); MEAN CORPUSCULAR HEMOGLOBIN 39 pg (25-34); MEAN CORPUSCULAR HGB CONC 33 g/dL (32-36); MEAN CORPUSCULAR VOLUME 120 fL (80-99); MEAN PLATELET VOLUME 10.9 fL (9.0-12.2); MONOCYTES # (AUTO) 0.4 10^3/uL (0.0-1.0); MONOCYTES % (AUTO) 10 % (0-12); NEUTROPHILS # (AUTO) 2.1 10^3/uL (1.8-7.8); NEUTROPHILS % (AUTO) 57 % (42-75); PLATELET COUNT 144 10^3/uL (130-400); WHITE BLOOD COUNT 3.8 10^3/uL (4.3-11.0)
[2022-06-01 17:12] LABS: POTASSIUM 5.4 MMOL/L (3.6-5.0)
[2022-06-01 17:13] LABS: CALCIUM 8.7 MG/DL (8.5-10.1)
[2022-06-01 17:17] LABS: CREATININE SERUM 1.09 MG/DL (0.60-1.30)
--- NOTE | 2022-06-01 17:27 | Diagnostic Imaging Report ---
INDICATION: Weight gain and shortness of air. FINDINGS: Heart size is within normal limits. There is no overt failure pattern. There is some flattening of the diaphragms. This may be air trapping or an aggressive inspiratory volume. IMPRESSION: No acute-appearing abnormality. Dictated by: Dictated on workstation # [id number]
[2022-06-01] MEDS ORDERED: FURO-125 PO (17:52)
[2022-06-01 18:02] VITALS: BP 138/99
== END 2022-06-01 18:02 | disposition home or self-care (01) ==
LOC: EDUNIT# 16:31 → ER 16:32
DX: R06.00 Dyspnea, unspecified (principal); R60.0 Localized edema; R77.8 Other specified abnormalities of plasma proteins; I10 Essential (primary) hypertension; Z79.811 Long term (current) use of aromatase inhibitors
CPT/HCPCS: 36415; 71046; 80048; 83880; 84484; 85025; 93005; 93041

== ENCOUNTER 2022-07-27 14:35 | Emergency (ER) | payer SELFPAY ==
[~2022-07-27 14:35] MED LIST changes: +FURO-125 PO; -INSU100I29 SQ; +INSU100I30 SQ
[2022-07-27] MEDS ORDERED: fentaNYL INJ 100 MCG/2 ML AMP IVP STA (15:04)
--- NOTE | 2022-07-27 15:11 | ED Abdominal Pain ---
General Chief Complaint: Abdominal/GI Problems Stated Complaint: PAIN ON LEFT SIDE Source of Information: Patient Exam Limitations: No Limitations History of Present Illness Date Seen by Provider: Jul 27, 2022 Time Seen by Provider: 15:08 Initial Comments Patient is a 52-year-old male who presents to the ED with multiple complaints. History of CHF, type 2 diabetes, alcohol use who presents ED left-sided abdominal pain. Abdominal pain since . Sharp acute constant. Rates pain 9 out of 10 without radiation. Patient reports few episodes of diarrhea without vomiting. No history of previous abdominal surgery. Pain radiates up to his chest. He states his legs appear to be swelling in his neck swollen just swollen. Some shortness of breath and cough every day smoker. Patient denies any diuretic use. Noncompliant with his medication. Patient denies of any visual changes, headache, unilateral muscle weakness or sensory changes, current chest pain. Denies of any fever. He reports drinking alcohol beers daily. Denies of any drug use. Patient reports a decreased urination as he is having difficulty getting urine out. Denies any testicle pain, testicle swelling, or history of BPH Allergies and Home Medications Allergies Coded Allergies: No Known Drug Allergies (Unverified , 02/04/13) Patient Home Medication List Home Medication List Reviewed: Yes Amoxicillin/Potassium Clav (Amox Tr-K Clv 875-125 mg Tab) 875 Mg-125 Mg Tablet, 1 EACH PO BID Prescribed by: AGATHA AVILA on 07/27/221940 Calcium Carbonate/Vitamin D3 (Calcium 1,000 + D3 Caplet) 1,000 Mg-20 Tablet, 1 EACH PO DAILY, (Reported) Entered as Reported by: MARI VAZQUEZ on 09/12/21 1331 Furosemide (Lasix) 20 Mg Tablet, 20 MG PO DAILY Prescribed by: WILL RUIZ on 06/01/22 175 Furosemide (Lasix) 20 Mg Tablet, 20 MG PO DAILY Prescribed by: AGATHA AVILA on 07/27/221940 Gabapentin (Gabapentin) 600 Mg Tablet, 600 MG PO BID, (Reported) Entered as Reported by: MARI VAZQUEZ on 09/12/21 1326 Glipizide (Glipizide) 5 Mg Tablet, 5 MG PO BID, (Reported) Entered as Reported by: MARI VAZQUEZ on 09/12/21 1325 Insulin Aspart (Novolog Flexpen) 100 Unit/Ml (3 Ml) Solution, 12 UNITS SQ DAILY, (Reported) Entered as Reported by: MARI VAZQUEZ on 09/12/21 1323 Insulin Detemir (Levemir Flextouch) 100 Unit/Ml (3 Ml) Insuln.pen, 20 UNIT SQ HS, (Reported) Entered as Reported by: MARI VAZQUEZ on 09/12/21 1324 Lisinopril (Lisinopril) 5 Mg Tablet, 5 MG PO DAILY, (Reported) Entered as Reported by: MARI VAZQUEZ on 09/12/21 1328 Multivitamin with Folic Acid (One Daily Multivitamin Tablet) 400 Mcg Tablet, 400 MCG PO DAILY, (Reported) Entered as Reported by: MARI VAZQUEZ on 09/12/21 1329 Nabumetone (Nabumetone) 500 Mg Tablet, 500 MG PO BID PRN for PAIN-MILD (1-4), (Reported) Entered as Reported by: ELIEZER MOSS on 09/26/21 1145 Pantoprazole Sodium (Protonix) 40 Mg Tablet.dr, 40 MG PO DAILY PRN for HEARTBURN, (Reported) Entered as Reported by: JAEL LOPEZ on 01/13/18 1030 Sertraline HCl (Sertraline HCl) 100 Mg Tablet, 100 MG PO DAILY, (Reported) Entered as Reported by: MARI VAZQUEZ on 09/12/21 1322 Sildenafil Citrate (Sildenafil Citrate) 50 Mg Tablet, 50 MG PO DAILY PRN for ERECTILE DYSFUNCTION, (Reported) Entered as Reported by: MARI VAZQUEZ on 09/12/21 1337 Simvastatin (Simvastatin) 20 Mg Tablet, 20 MG PO DAILY, (Reported) Entered as Reported by: JAEL LOPEZ on 01/13/18 1040 Tramadol HCl (Tramadol HCl) 50 Mg Tablet, 50 MG PO TID PRN for PAIN-MODERATE (5- 7), (Reported) Entered as Reported by: MARI VAZQUEZ on 09/12/21 1327 Vit A,C & E/Lutein/Minerals (Healthy Eyes Tablet) 300MCG-200 Tablet, 1 EACH PO DAILY, (Reported) Entered as Reported by: MARI VAZQUEZ on 09/12/21 1330 Review of Systems Review of Systems Constitutional: No chills, No diaphoresis, No malaise EENTM: No Double Vision, No Eye Pain Respiratory: Cough; Denies Orthopnea; Shortness of Air Cardiovascular: Denies Chest Pain; Edema Gastrointestinal: Denies Abdomen Distended, Denies Abdominal Pain, Denies Diarrhea, Denies Nausea, Denies Vomiting Genitourinary: Denies Burning, Denies Discharge, Denies Drainage, Denies Frequency Musculoskeletal: No back pain, No joint pain, No joint swelling, No muscle pain, No muscle stiffness Skin: No change in color, No change in hair/nails All Other Systems Reviewed Negative Unless Noted: Yes Past Difraez-Aauloc-Kygnpc Hx Patient Social History Tobacco Use?: Yes Tobacco type used: Cigarettes Smoking Status: Current Everyday Smoker Substance use?: No Alcohol Use?: Yes Alcohol type: Beer Alcohol Frequency: Couple times a week Pt feels they are or have been: No Immunizations Up To Date Tetanus Booster (TDap): Unknown First/Initial COVID19 Vaccinat: X3 Second COVID19 Vaccination Ted: X3 Third COVID19 Vaccination Date: X3 Seasonal Allergies Seasonal Allergies: No Past Medical History Surgery/Hospitalization HX: DM2, htn Surgeries: No Respiratory: Yes Asthma Cardiac: No High Cholesterol, Hypertension Neurological: Yes (NEUROPATHY IN HANDS AND FEET) Neuropathy Reproductive Disorders: No Sexually Transmitted Disease: No HIV/AIDS: No Genitourinary: No Gastrointestinal: No Musculoskeletal: Yes (R knee) Arthritis Endocrine: Yes Diabetes, Insulin dep HEENT: No Cancer: No Psychosocial: No Integumentary: No Blood Disorders: No Adverse Reaction/Blood Tranf: No Family Medical History No Pertinent Family Hx Physical Exam Vital Signs Vital Signs - First Documented 07/27/22 14:58 Pulse 101 Resp 18 B/P (MAP) 145/108 (120) Pulse Ox 99 O2 Delivery Room Air Capillary Refill : Height/Weight/BMI Height: 5'8.00" Weight: 153lbs. 1.0oz. [id number]; 27.00 BMI Method:Stated General Appearance: WD/WN, no apparent distress HEENT: PERRL/EOMI, normal ENT inspection, TMs normal, pharynx normal Neck: non-tender, full range of motion, supple, normal inspection Respiratory: chest non-tender, lungs clear, normal breath sounds Cardiovascular: regular rate, rhythm, no edema, no gallop, no JVD Gastrointestinal: normal bowel sounds, soft, no organomegaly, no pulsatile mass, tenderness (Left-sided upper abdominal tenderness), other Extremities: normal range of motion, non-tender, normal inspection, no pedal edema Back: normal inspection, no CVA tenderness, no vertebral tenderness Skin: normal color, warm/dry Progress/Results/Core Measures Results/Orders Lab Results Laboratory Tests Test 07/27/22 15:13 07/27/22 16:23 Range/Units White Blood Count 3.6 L 4.3-11.0 10^3/uL Red Blood Count 3.01 L 4.30-5.52 10^6/uL Hemoglobin 11.5 L 13.3-17.7 g/dL Hematocrit 35 L 40-54 % Mean Corpuscular Volume 117 H 80-99 fL Mean Corpuscular Hemoglobin 38 H 25-34 pg Mean Corpuscular Hemoglobin Concent 33 32-36 g/dL Red Cell Distribution Width 12.6 10.0-14.5 % Platelet Count 171 130-400 10^3/uL Mean Platelet Volume 11.2 9.0-12.2 fL Immature Granulocyte % (Auto) 0 % Neutrophils (%) (Auto) 57 42-75 % Lymphocytes (%) (Auto) 32 12-44 % Monocytes (%) (Auto) 10 0-12 % Eosinophils (%) (Auto) 0 0-10 % Basophils (%) (Auto) 0 0-10 % Neutrophils # (Auto) 2.1 1.8-7.8 10^3/uL Lymphocytes # (Auto) 1.2 1.0-4.0 10^3/uL Monocytes # (Auto) 0.4 0.0-1.0 10^3/uL Eosinophils # (Auto) 0.0 0.0-0.3 10^3/uL Basophils # (Auto) 0.0 0.0-0.1 10^3/uL Immature Granulocyte # (Auto) 0.0 0.0-0.1 10^3/uL Sodium Level 140 135-145 MMOL/L Potassium Level 4.8 3.6-5.0 MMOL/L Chloride Level 106 98-107 MMOL/L Carbon Dioxide Level 22 21-32 MMOL/L Anion Gap 12 5-14 MMOL/L Blood Urea Nitrogen 13 7-18 MG/DL Creatinine 0.88 0.60-1.30 MG/DL Estimat Glomerular Filtration Rate 103 BUN/Creatinine Ratio 15 Glucose Level 213 H 70-105 MG/DL Calcium Level 8.9 8.5-10.1 MG/DL Corrected Calcium 9.0 8.5-10.1 MG/DL Total Bilirubin 0.9 0.1-1.0 MG/DL Aspartate Amino Transf (AST/SGOT) 29 5-34 U/L Alanine Aminotransferase (ALT/SGPT) 27 0-55 U/L Alkaline Phosphatase 149 H 40-136 U/L Troponin I 0.101 H <0.028 NG/ML B-Type Natriuretic Peptide 1718.4 H <100.0 PG/ML Total Protein 7.4 6.4-8.2 GM/DL Albumin 3.9 3.2-4.5 GM/DL Lipase 61 8-78 U/L Serum Alcohol < 10 <10 MG/DL Urine Color YELLOW Urine Clarity CLEAR Urine pH 6.0 5-9 Urine Specific [place] 1.020 1.016-1.022 Urine Protein 2+ H NEGATIVE Urine Glucose (UA) 1+ H NEGATIVE Urine Ketones NEGATIVE NEGATIVE Urine Nitrite NEGATIVE NEGATIVE Urine Bilirubin NEGATIVE NEGATIVE Urine Urobilinogen >=8.0 < = 1.0 MG/DL Urine Leukocyte Esterase NEGATIVE NEGATIVE Urine RBC (Auto) NEGATIVE NEGATIVE Urine RBC NONE /HPF Urine WBC NONE /HPF Urine Squamous Epithelial Cells RARE /HPF Urine Crystals NONE /LPF Urine Bacteria TRACE /HPF Urine Casts NONE /LPF Urine Mucus NEGATIVE /LPF Urine Culture Indicated NO My Orders Orders - FREIDA OLVERA PA Ua Culture If Indicated (07/27/22 14:58) Cbc With Automated Diff (07/27/22 15:04) Comprehensive Metabolic Panel (07/27/22 15:04) Lipase (07/27/22 15:04) Bnp Lilly (07/27/22 15:04) Troponin I Lilly (07/27/22 15:04) Ekg Tracing (07/27/22 15:04) Chest 1 View, Ap/Pa Only (07/27/22 15:04) Ct Abd/Pelvis Wo(Kidney Stone) (07/27/22 15:04) Alcohol (07/27/22 15:04) Fentanyl Inj (Sublimaze Injection) (07/27/22 15:04) Ct Chest W (07/27/22 16:22) Iohexol Injection (Omnipaque 350 Mg/Ml 1 (07/27/22 16:45) Ns (Ivpb) (Sodium Chloride 0.9% Ivpb Bag (07/27/22 16:45) Aspirin Chewable Tablet (Baby Aspirin Ch (07/27/22 18:00) Furosemide Injection (Lasix Injection) (07/27/22 19:45) Medications Given in ED Vital Signs/I&O 07/27/22 07/27/22 14:58 20:05 Pulse 101 97 Resp 18 18 B/P (MAP) 145/108 (120) 135/106 Pulse Ox 99 99 O2 Delivery Room Air Room Air Comment Sinus rhythm, short VA interval, right bundle branch block, 96 bpm, QRS duration 128 MS, QTc 476 MS. Departure Communication (PCP) Reviewed previous ER visits, H&P, lab testing, cardiology H&P. History of type 2 diabetes, CHF, coronary artery disease, hypertension. Noncompliant with medication. patient with multiple complaints. Left-sided abdominal pain sharp constant since radiating to the left-sided lower chest. Reports some watery stools without vomiting. Denies history of previous abdominal surgery. Drinks 2 to 3 25 ounce beers daily. Denies history of liver disease. States he has had bilateral leg swelling with shortness of breath and cough over the past month. Patient had a cardiac catheterization in 2020 at [facility] which showed moderate coronary artery disease no obstructive disease treated conservatively. Patient had a echocardiogram in 2020 showed ejection fraction of 60 to 65%. It was recommend taking baby aspirin and statin. Patient was seen here in May with evidence of CHF. Patient Was given Lasix at discharge. He states he is not currently taking any Lasix. History of smoking. Due to patient's complaints cardiac work-up, CBC, CMP, chest ray, CT abdomen and pelvis was ordered. CBC showed white blood count of 3.6, 11.5. Chemistry showed blood sugar 217, troponin 0.101, BNP 1718. EKG right bundle branch block without any new acute new findings. Reviewed previous EKG in May 2022 with no changes. Patient was given full aspirin 324. Chest x-ray did not show any evidence of pneumonia, mediastinal widening, pneumothorax. CT abdomen and pelvis shows mild pleural and pericardial fluid with a 1 cm spiculated nodule in the right lower lobe. There is mild peritoneal free fluid and pericholecystic fluid. Patient has no right upper quadrant suggesting acute cholecystitis. Nonspecific finding. Normal liver enzymes and bilirubin. Do not suspect acute cholecystitis as he has no tenderness to this location. Mild focal inflammation within the fat surrounding the proximal descending colon which may represent colitis. No evidence obstruction. Due to the spiculated nodule, pleural effusion CT scan of the chest was ordered which did note a small right pleural effusion with scattered nodular foci of primary groundglass density in both lungs suggesting multifocal pneumonitis. No evidence of lung mass. No evidence of large pulmonary embolism. Mediastinal adenopathy which could be reactive. Inflammation of the left upper quadrant appears to be centered at the splenic flexure. Patient does have tenderness to this area. Nonspecific but could be a form of colitis. Suggest getting a lactic acid to check for any ischemic bowel. However his presentation does not present like ischemic bowel as he does not appear in acute pain He refused testing. Patient was requesting to leave. Did contact cardiology Dr. Belcher regarding the elevated troponin and BNP. Trending troponins since September 2021 has showed slightly elevated troponin which appear to be baseline. BNP in May. Concerning for component of CHF with underlying pneumonitis and colitis. Dr. Belcher felt comfortable patient to be discharged and to follow-up with him at [facility]. He was scheduled for a an echocardiogram in June but was not able to get the exam. I recommend out patient echocardiogram. He recommended 40 mg of Lasix here. He was given a dose here. We will provide a few days of Lasix 20 mg. States he does have his blood pressure medication which I recommend continue. Continue with the statin and baby aspirin. Patient was eager to leave and no further work-up. Recommend further evaluation of the colitis with her primary care physician. If worsening pain he needs to return back to ED. he reported a few loose stools since but denies diarrhea daily. Denies vomiting. Patient was started on Augmentin. Impression Primary Impression: CHF (congestive heart failure) Additional Impressions: Elevated troponin Pneumonitis Disposition: HOME, SELF-CARE Condition: Stable Departure-Patient Inst. Decision time for Depature: 19:40 Referrals: ALFREDITO MCINTYRE MD (PCP/Family) Primary Care Physician CARLA BELCHER MD Patient Instructions: Heart Failure ED Add. Discharge Instructions: Need to follow-up with Dr. Belcher at [facility] for further evaluation. Continue with your baby aspirin. Continue monitoring her blood sugar. Provided Lasix to help with the swelling. Continue monitoring her diet. Return back to ED if symptoms worsen All discharge instructions reviewed with patient and/or family. Voiced understanding. Scripts Amoxicillin/Potassium Clav (Amox Tr-K Clv 875-125 mg Tab) 875 Mg-125 Mg Tablet 1 EACH PO BID for 7 Days, #4 TAB Prov: FREIDA OLVERA 07/27/22 Furosemide (Lasix) 20 Mg Tablet 20 MG PO DAILY, #8 TAB Prov: FREIDA OLVERA 07/27/22 FREIDA OLVERA Jul 27, 2022 15:11
[2022-07-27 15:22] LABS: BASOPHILS % (AUTO) 0 % (0-10); EOSINOPHILS % (AUTO) 0 % (0-10); HEMATOCRIT 35 % (40-54); HEMOGLOBIN 11.5 g/dL (13.3-17.7); LYMPHOCYTES # (AUTO) 1.2 10^3/uL (1.0-4.0); LYMPHOCYTES % (AUTO) 32 % (12-44); MEAN CORPUSCULAR HEMOGLOBIN 38 pg (25-34); MEAN CORPUSCULAR HGB CONC 33 g/dL (32-36); MEAN CORPUSCULAR VOLUME 117 fL (80-99); MEAN PLATELET VOLUME 11.2 fL (9.0-12.2); MONOCYTES # (AUTO) 0.4 10^3/uL (0.0-1.0); MONOCYTES % (AUTO) 10 % (0-12); NEUTROPHILS # (AUTO) 2.1 10^3/uL (1.8-7.8); NEUTROPHILS % (AUTO) 57 % (42-75); PLATELET COUNT 171 10^3/uL (130-400); WHITE BLOOD COUNT 3.6 10^3/uL (4.3-11.0)
--- NOTE | 2022-07-27 15:31 | Diagnostic Imaging Report ---
INDICATION: Dyspnea. TECHNIQUE: AP view of chest is obtained with comparison made to study of 09/25/2021. FINDINGS: Overall heart size and pulmonary vascularity are within normal limits. There is no pneumothorax or consolidation. No significant pleural fluid is seen. IMPRESSION: No definite acute abnormality. Dictated by: Dictated on workstation # [id number]
[2022-07-27 15:37] LABS: ALBUMIN 3.9 GM/DL (3.2-4.5)
[2022-07-27 15:38] LABS: CHLORIDE 106 MMOL/L (98-107); POTASSIUM 4.8 MMOL/L (3.6-5.0); SODIUM 140 MMOL/L (135-145)
[2022-07-27 15:39] LABS: CALCIUM 8.9 MG/DL (8.5-10.1)
[2022-07-27 15:40] LABS: GLUCOSE 213 MG/DL (70-105); TOTAL PROTEIN 7.4 GM/DL (6.4-8.2)
[2022-07-27 15:41] LABS: CARBON DIOXIDE 22 MMOL/L (21-32)
[2022-07-27 15:42] LABS: BILIRUBIN,TOTAL 0.9 MG/DL (0.1-1.0)
[2022-07-27 15:43] LABS: ALKALINE PHOSPHATASE 149 U/L (40-136)
[2022-07-27 15:44] LABS: CREATININE SERUM 0.88 MG/DL (0.60-1.30); GFR ESTIMATED 103
[2022-07-27 15:45] LABS: BUN/CREATININE RATIO 15
[2022-07-27 15:47] LABS: ALANINE AMINOTRANSFERASE 27 U/L (0-55); LIPASE 61 U/L (8-78)
--- NOTE | 2022-07-27 16:07 | Diagnostic Imaging Report ---
PROCEDURE: CT urinary tract, rule out kidney stone. TECHNIQUE: Multiple contiguous axial images were obtained through the abdomen and pelvis without the use of intravenous contrast. Auto Exposure Controls were utilized during the CT exam to meet ALARA standards for radiation dose reduction. INDICATION: Abdominal pain. COMPARISON: 09/16/2019. FINDINGS: There has been development of mild right pleural fluid with groundglass density in the lung bases, greater on the right. In addition, there is an approximately 1 cm spiculated nodule in the anterior basal aspect of the right lower lobe. There is a small amount of pericardial fluid. Unenhanced images of the liver reveal no focal abnormality. There are numerous calcified granulomas again seen within the spleen. There is a small amount of perihepatic free fluid. There is pericholecystic fluid as well. There is mild peripancreatic density without focal fluid collection. There is inflammation surrounding the proximal descending colon. Mild pelvic peritoneal fluid is noted. No adrenal gland lesion is identified. There is no evidence of renal calculus or hydronephrosis. There is calcification of vas deferens bilaterally. The unopacified bladder is unremarkable in appearance. IMPRESSION: Mild pleural and pericardial fluid with a 1 cm spiculated nodule in the right lower lobe. This could be inflammatory in nature although the possibility of primary or metastatic neoplasm in the lung is not fully excluded and clinical correlation and possible short-term followup CT of the lung would be useful. There is mild peritoneal free fluid and pericholecystic fluid. Clinical correlation with regard to signs of acute cholecystitis would be useful. There is focal inflammation within the fat surrounding the proximal descending colon which may represent colitis. No bowel obstruction is noted. Early atherosclerotic disease and vas deferens calcification can be seen with diabetes and clinical correlation would be useful. Dictated by: Dictated on workstation # [id number]
[2022-07-27 16:31] LABS: BILIRUBIN,URINE NEGATIVE (NEGATIVE); CLARITY,URINE CLEAR; COLOR,URINE YELLOW; GLUCOSE, URINE (UA) 1+ (NEGATIVE); KETONES,URINE NEGATIVE (NEGATIVE); LEUKOCYTE ESTERASE ,URINE NEGATIVE (NEGATIVE); NITRITE,URINE NEGATIVE (NEGATIVE); PROTEIN,URINE 2+ (NEGATIVE)
[2022-07-27 16:43] LABS: BACTERIA,URINE TRACE /HPF; SQUAMOUS EPITHELIAL CELL,UR RARE /HPF
[2022-07-27] MEDS ORDERED: IOHEXOL 350 MG/ML 100 ML (OMNIPAQUE 350) VIAL IV ONE (16:45)
[2022-07-27] MEDS ORDERED: NS 100 ML (IVPB) BAG IV ONE (16:45)
--- NOTE | 2022-07-27 17:17 | Diagnostic Imaging Report ---
PROCEDURE: CT chest with contrast only. TECHNIQUE: Multiple contiguous axial images were obtained through the chest after administration of intravenous contrast. Auto Exposure Controls were utilized during the CT exam to meet ALARA standards for radiation dose reduction. INDICATION: Chest pain and cough. FINDINGS: There is good opacification of the thoracic aorta which has a normal appearance. There is minimal atherosclerotic calcification within the coronary arteries. There is a small right pleural effusion with mild subjacent atelectasis and/or pneumonitis in the right lower lobe. There are numerous patchy scattered nodular foci which appear to be sub-solid and primarily groundglass in density. There are prominent mediastinal lymph nodes measuring up to 2.4 cm long axis in the precarinal region. Calcified lymph nodes are seen in the subcarinal region. Upper abdominal sections reveal hepatic steatosis and patchy enhancement of the spleen. There is also edema and/or inflammation adjacent to the splenic flexure in the colon. Small amount of free fluid is also noted. IMPRESSION: Small right pleural effusion with scattered nodular foci of primarily groundglass density in both lungs. This is likely on the basis of multifocal pneumonitis. Possibility of septic emboli is not excluded. No large pulmonary embolism is seen. There is also mild mediastinal adenopathy which could be reactive. Component of previous granulomatous infection could also contribute. Inflammation in the left upper quadrant appears to be centered at the splenic flexure. The heterogeneous splenic enhancement pattern could be related to bolus timing, although correlation to possible pain in this region would be useful. Dictated by: Dictated on workstation # [id number]
[2022-07-27] MEDS ORDERED: ASPIRIN 81 MG CHEW (CHILDREN'S ASA) PO ONE (18:00)
[2022-07-27] MEDS ORDERED: AMOX1TAB12 PO (19:41)
[2022-07-27] MEDS ORDERED: FURO-125 PO (19:41)
[2022-07-27] MEDS ORDERED: FUROSEMIDE 40 MG/4 ML INJ (LASIX) IVP ONE (19:45)
[2022-07-27 20:05] VITALS: BP 135/106
== END 2022-07-27 20:05 | disposition home or self-care (01) ==
LOC: EDUNIT# 14:35 → ER 14:41
DX: J18.9 Pneumonia, unspecified organism (principal); I11.0 Hypertensive heart disease with heart failure; I50.9 Heart failure, unspecified; R74.8 Abnormal levels of other serum enzymes; E78.00 Pure hypercholesterolemia, unspecified; E11.40 Type 2 diabetes mellitus with diabetic neuropathy, unspecified; F17.210 Nicotine dependence, cigarettes, uncomplicated; Z91.148 Patient's other noncompliance with medication regimen for other reason; Z79.82 Long term (current) use of aspirin; Z79.4 Long term (current) use of insulin; Z79.899 Other long term (current) drug therapy
CPT/HCPCS: 71045; 71260; 74176; 80053; 81000; 83690; 83880; 84484; 85025; 93005; 99284; G0480; 36415; 80320

== ENCOUNTER 2022-09-04 13:24 | Emergency (ER) | payer MEDICARE, OTHER ==
[~2022-09-04] VITALS: Ht 172.7 cm; Wt 73.4 kg
[~2022-09-04 13:24] MED LIST changes: +AMOX1TAB12 PO
--- NOTE | 2022-09-04 14:06 | ED GI ---
General Chief Complaint: Abdominal/GI Problems Stated Complaint: ABD PAIN | DIARRHEA | Nursing Triage Note: PT AMB TO RM 8 WITH C/O LOWER ABD PAIN AND DIARRHEA X2 WEEKS. PT TOOK PEPTO-BISMOL AND HAD NO RELIEF. PT STATES THAT HE STOPPED DRINKING AND SMOKING X3 DAYS AGO. Source of Information: Patient Exam Limitations: No Limitations History of Present Illness Date Seen by Provider: September 04, 2022 Time Seen by Provider: 13:42 Initial Comments 52-year-old male presents to the ER with complaints of diarrhea for the 2 weeks. He states that his stools are watery. Denies abdominal pain, just states that his stomach feels upset. He reports soreness in his bottom from wiping. He reports 1-2 episodes of vomiting. Denies fevers, chest pain, dysuria. He reports some shortness of air, states it is worse when lying down, denies shortness of air with exertion. Patient has a history of congestive heart failure. Patient also has diabetes, hypertension, coronary artery disease. Patient was seen here on July 27 and started on Augmentin. Patient thinks that the diarrhea possibly started shortly after ending his antibiotic. Allergies and Home Medications Allergies Coded Allergies: No Known Drug Allergies (Unverified , 02/04/13) Patient Home Medication List Home Medication List Reviewed: Yes Amoxicillin/Potassium Clav (Amox Tr-K Clv 875-125 mg Tab) 875 Mg-125 Mg Tablet, 1 EACH PO BID Prescribed by: AGATHA AVILA on 07/27/221940 Calcium Carbonate/Vitamin D3 (Calcium 1,000 + D3 Caplet) 1,000 Mg-20 Tablet, 1 EACH PO DAILY, (Reported) Entered as Reported by: MARI VAZQUEZ on 09/12/21 1331 Furosemide (Lasix) 20 Mg Tablet, 20 MG PO DAILY Prescribed by: WILL RUIZ on 06/01/22 175 Furosemide (Lasix) 20 Mg Tablet, 20 MG PO DAILY Prescribed by: AGATHA AVILA on 07/27/221940 Gabapentin (Gabapentin) 600 Mg Tablet, 600 MG PO BID, (Reported) Entered as Reported by: MARI VAZQUEZ on 09/12/21 1326 Glipizide (Glipizide) 5 Mg Tablet, 5 MG PO BID, (Reported) Entered as Reported by: MARI VAZQUEZ on 09/12/21 1325 Insulin Aspart (Novolog Flexpen) 100 Unit/Ml (3 Ml) Solution, 12 UNITS SQ DAILY, (Reported) Entered as Reported by: MARI VAZQUEZ on 09/12/21 1323 Insulin Detemir (Levemir Flextouch) 100 Unit/Ml (3 Ml) Insuln.pen, 20 UNIT SQ H S, (Reported) Entered as Reported by: MARI VAZQUEZ on 09/12/21 1324 Lisinopril (Lisinopril) 5 Mg Tablet, 5 MG PO DAILY, (Reported) Entered as Reported by: MARI VAZQUEZ on 09/12/21 1328 Multivitamin with Folic Acid (One Daily Multivitamin Tablet) 400 Mcg Tablet, 400 MCG PO DAILY, (Reported) Entered as Reported by: MARI VAZQUEZ on 09/12/21 1329 Nabumetone (Nabumetone) 500 Mg Tablet, 500 MG PO BID PRN for PAIN-MILD (1-4), (Reported) Entered as Reported by: ELIEZER MOSS on 09/26/21 1145 Pantoprazole Sodium (Protonix) 40 Mg Tablet.dr, 40 MG PO DAILY PRN for HEARTBURN, (Reported) Entered as Reported by: AJEL LOPEZ on 01/13/18 1030 Sertraline HCl (Sertraline HCl) 100 Mg Tablet, 100 MG PO DAILY, (Reported) Entered as Reported by: MARI VAZQUEZ on 09/12/21 1322 Sildenafil Citrate (Sildenafil Citrate) 50 Mg Tablet, 50 MG PO DAILY PRN for ERECTILE DYSFUNCTION, (Reported) Entered as Reported by: MARI VAZQUEZ on 09/12/21 1337 Simvastatin (Simvastatin) 20 Mg Tablet, 20 MG PO DAILY, (Reported) Entered as Reported by: JAEL LOPEZ on 01/13/18 1040 Tramadol HCl (Tramadol HCl) 50 Mg Tablet, 50 MG PO TID PRN for PAIN-MODERATE (5- 7), (Reported) Entered as Reported by: MARI VAZQUEZ on 09/12/21 1327 Vit A,C & E/Lutein/Minerals (Healthy Eyes Tablet) 300MCG-200 Tablet, 1 EACH PO DAILY, (Reported) Entered as Reported by: MARI VAZQUEZ on 09/12/21 1330 Review of Systems Review of Systems Constitutional: see HPI Past Qodakdv-Udoizv-Yrcufx Hx Patient Social History Tobacco Use?: Yes Tobacco type used: Cigarettes Substance use?: No Alcohol Use?: Yes Immunizations Up To Date Tetanus Booster (TDap): Unknown First/Initial COVID19 Vaccinat: X3 Second COVID19 Vaccination Ted: X3 Third COVID19 Vaccination Date: X3 Seasonal Allergies Seasonal Allergies: No Past Medical History Surgery/Hospitalization HX: DM2, htn Surgeries: No Respiratory: Yes Asthma Cardiac: No High Cholesterol, Hypertension Neurological: Yes (NEUROPATHY IN HANDS AND FEET) Neuropathy Reproductive Disorders: No Sexually Transmitted Disease: No HIV/AIDS: No Genitourinary: No Gastrointestinal: No Musculoskeletal: Yes (R knee) Arthritis Endocrine: Yes Diabetes, Insulin dep HEENT: No Cancer: No Psychosocial: No Integumentary: No Blood Disorders: No Adverse Reaction/Blood Tranf: No Family Medical History No Pertinent Family Hx Physical Exam Vital Signs Vital Signs - First Documented 09/04/22 09/04/22 13:30 16:00 Pulse 92 Resp 16 B/P (MAP) 127/95 (106) Pulse Ox 97 O2 Delivery Room Air Capillary Refill : Height/Weight/BMI Height: 5'8.00" Weight: 153lbs. 1.0oz. 69.639101um; 24.00 BMI Method:Stated General Appearance: WD/WN, no apparent distress Neck: supple, normal inspection Respiratory: lungs clear, normal breath sounds, no respiratory distress, no accessory muscle use Cardiovascular: regular rate, rhythm, no edema Gastrointestinal: normal bowel sounds, non tender, soft Extremities: normal range of motion, normal inspection, no pedal edema Neurologic/Psychiatric: alert, normal mood/affect Skin: normal color, warm/dry Progress/Results/Core Measures Results/Orders Lab Results Laboratory Tests Test 09/04/22 14:05 09/04/22 14:28 Range/Units White Blood Count 3.2 L 4.3-11.0 10^3/uL Red Blood Count 2.80 L 4.30-5.52 10^6/uL Hemoglobin 10.6 L 13.3-17.7 g/dL Hematocrit 31 L 40-54 % Mean Corpuscular Volume 111 H 80-99 fL Mean Corpuscular Hemoglobin 38 H 25-34 pg Mean Corpuscular Hemoglobin Concent 34 32-36 g/dL Red Cell Distribution Width 13.0 10.0-14.5 % Platelet Count 119 L 130-400 10^3/uL Mean Platelet Volume 11.5 9.0-12.2 fL Immature Granulocyte % (Auto) 0 % Neutrophils (%) (Auto) 62 42-75 % Lymphocytes (%) (Auto) 29 12-44 % Monocytes (%) (Auto) 8 0-12 % Eosinophils (%) (Auto) 1 0-10 % Basophils (%) (Auto) 0 0-10 % Neutrophils # (Auto) 2.0 1.8-7.8 10^3/uL Lymphocytes # (Auto) 0.9 L 1.0-4.0 10^3/uL Monocytes # (Auto) 0.3 0.0-1.0 10^3/uL Eosinophils # (Auto) 0.0 0.0-0.3 10^3/uL Basophils # (Auto) 0.0 0.0-0.1 10^3/uL Immature Granulocyte # (Auto) 0.0 0.0-0.1 10^3/uL Percent Immature Platelet Fraction 3.4 0.0-7.6 % Sodium Level 140 135-145 MMOL/L Potassium Level 4.5 3.6-5.0 MMOL/L Chloride Level 107 98-107 MMOL/L Carbon Dioxide Level 25 21-32 MMOL/L Anion Gap 8 5-14 MMOL/L Blood Urea Nitrogen 11 7-18 MG/DL Creatinine 0.88 0.60-1.30 MG/DL Estimat Glomerular Filtration Rate 103 BUN/Creatinine Ratio 13 Glucose Level 269 H 70-105 MG/DL Calcium Level 8.7 8.5-10.1 MG/DL Corrected Calcium 8.9 8.5-10.1 MG/DL Total Bilirubin 0.7 0.1-1.0 MG/DL Aspartate Amino Transf (AST/SGOT) 21 5-34 U/L Alanine Aminotransferase (ALT/SGPT) 26 0-55 U/L Alkaline Phosphatase 123 40-136 U/L Total Protein 6.7 6.4-8.2 GM/DL Albumin 3.7 3.2-4.5 GM/DL Amylase Level 55 25-125 U/L Lipase 53 8-78 U/L Urine Color YELLOW Urine Clarity CLEAR Urine pH 6.0 5-9 Urine Specific [place] 1.020 1.016-1.022 Urine Protein 1+ H NEGATIVE Urine Glucose (UA) 3+ H NEGATIVE Urine Ketones NEGATIVE NEGATIVE Urine Nitrite NEGATIVE NEGATIVE Urine Bilirubin NEGATIVE NEGATIVE Urine Urobilinogen 1.0 < = 1.0 MG/DL Urine Leukocyte Esterase NEGATIVE NEGATIVE Urine RBC (Auto) TRACE-I H NEGATIVE Urine RBC RARE /HPF Urine WBC RARE /HPF Urine Crystals NONE /LPF Urine Bacteria NEGATIVE /HPF Urine Casts NONE /LPF Urine Mucus NEGATIVE /LPF Urine Culture Indicated NO My Orders Orders - PETE BENÍTEZ APRN Comprehensive Metabolic Panel (09/04/22 13:41) Lipase (09/04/22 13:41) Amylase (09/04/22 13:41) Ua Culture If Indicated (09/04/22 13:41) Ed Iv/Invasive Line Start (09/04/22 13:41) Cbc With Automated Diff (09/04/22 13:41) Ns Iv 500 Ml (Sodium Chloride 0.9%) (09/04/22 14:15) Medications Given in ED Vital Signs/I&O 09/04/22 09/04/22 13:30 16:00 Pulse 92 92 Resp 16 B/P (MAP) 127/95 (106) 123/88 Pulse Ox 97 97 O2 Delivery Room Air Room Air Blood Pressure Mean: 106 Progress Progress Note : Progress Note Patient seen and evaluated, resting comfortably in bed, no acute distress. Based on exam and symptoms, work-up initially including CBC, CMP, amylase, lipase, UA, stool culture. 500 mL of IV fluids ordered. Stool culture and C. difficile ordered. Labs reviewed. CBC shows decreased hemoglobin 10.6, decreased hematocrit 31, patient reports history of anemia. These are similar to levels obtained in May, but are less than labs drawn in July. CMP grossly normal, glucose elevated to 69. Urinalysis shows 3+ ketones, trace RBCs. Negative for infection. Patient states he is ready to go home. Patient was unable to provide stool sample here. Will discharge with order for outpatient stool studies. Results discussed with patient. Discharge instructions and return precautions provided. Departure Impression Primary Impression: Diarrhea Qualified Codes: R19.7 - Diarrhea, unspecified Disposition: 01 HOME, SELF-CARE Condition: Stable Departure-Patient Inst. Decision time for Depature: 15:46 Referrals: ALFREDITO MCINTYRE MD (PCP/Family) Primary Care Physician Patient Instructions: Diarrhea in Adolescents and Adults Add. Discharge Instructions: You can get jhij-xyj-uhohtqy Imodium to help with your diarrhea. You can get hjlq-kwc-qvrogmt Preparation H to help with your rectal pain. Make sure you are drinking water while you are having this diarrhea, but be careful not to drink too much due to your heart failure. Follow-up with your primary care provider. Collect a stool sample at home and return specimen to the hospital. Results will be sent to [facility]. Return for recurrent diarrhea, recurrent vomiting, weakness, or any other new, concerning, or worsening symptoms. All discharge instructions reviewed with patient and/or family. Voiced understanding. PETE BENÍTEZ APRN September 04, 2022 14:05
[2022-09-04 14:13] LABS: BASOPHILS % (AUTO) 0 % (0-10); EOSINOPHILS % (AUTO) 1 % (0-10); HEMATOCRIT 31 % (40-54); MEAN CORPUSCULAR VOLUME 111 fL (80-99)
[2022-09-04] MEDS ORDERED: NS IV 500 ML 500 ML IV ONE (14:15)
[2022-09-04 14:20] LABS: HEMOGLOBIN 10.6 g/dL (13.3-17.7); LYMPHOCYTES # (AUTO) 0.9 10^3/uL (1.0-4.0); LYMPHOCYTES % (AUTO) 29 % (12-44); MEAN CORPUSCULAR HEMOGLOBIN 38 pg (25-34); MEAN CORPUSCULAR HGB CONC 34 g/dL (32-36); MEAN PLATELET VOLUME 11.5 fL (9.0-12.2); MONOCYTES # (AUTO) 0.3 10^3/uL (0.0-1.0); MONOCYTES % (AUTO) 8 % (0-12); NEUTROPHILS % (AUTO) 62 % (42-75); PLATELET COUNT 119 10^3/uL (130-400); WHITE BLOOD COUNT 3.2 10^3/uL (4.3-11.0)
[2022-09-04 14:33] LABS: BILIRUBIN,URINE NEGATIVE (NEGATIVE); CLARITY,URINE CLEAR; COLOR,URINE YELLOW; GLUCOSE, URINE (UA) 3+ (NEGATIVE); KETONES,URINE NEGATIVE (NEGATIVE); LEUKOCYTE ESTERASE ,URINE NEGATIVE (NEGATIVE); NITRITE,URINE NEGATIVE (NEGATIVE); PROTEIN,URINE 1+ (NEGATIVE)
[2022-09-04 14:39] LABS: ALBUMIN 3.7 GM/DL (3.2-4.5)
[2022-09-04 14:40] LABS: POTASSIUM 4.5 MMOL/L (3.6-5.0)
[2022-09-04 14:41] LABS: BACTERIA,URINE NEGATIVE /HPF; RBC,URINE RARE /HPF; WBC,URINE RARE /HPF
[2022-09-04 14:41] LABS: CALCIUM 8.7 MG/DL (8.5-10.1)
[2022-09-04 14:42] LABS: TOTAL PROTEIN 6.7 GM/DL (6.4-8.2)
[2022-09-04 14:44] LABS: BILIRUBIN,TOTAL 0.7 MG/DL (0.1-1.0)
[2022-09-04 14:46] LABS: CREATININE SERUM 0.88 MG/DL (0.60-1.30)
[2022-09-04 16:00] VITALS: BP 123/88
== END 2022-09-04 16:00 | disposition home or self-care (01) ==
LOC: EDUNIT# 13:24 → ER 13:26
DX: R19.7 Diarrhea, unspecified (principal); R71.0 Precipitous drop in hematocrit; F17.210 Nicotine dependence, cigarettes, uncomplicated; E11.40 Type 2 diabetes mellitus with diabetic neuropathy, unspecified; Z79.4 Long term (current) use of insulin
CPT/HCPCS: 36415; 80053; 81000; 82150; 83690; 85025

== ENCOUNTER → 2022-09-05 | Outpatient (CLI) | payer OTHER | LOC: LAB 12:35 | PROVIDERS: ATTEND Internal Medicine | DX: R19.7 Diarrhea, unspecified (principal) | CPT/HCPCS: 82274; 87015; 87045; 87046; 87324; 87328; 87329; 87449; 87899 ==

== ENCOUNTER 2022-09-29 15:49 | Emergency (ER) | payer OTHER ==
[~2022-09-29] VITALS: Ht 172 cm; Wt 73.4 kg
[2022-09-29 16:15] LABS: BASOPHILS % (AUTO) 0 % (0-10); EOSINOPHILS % (AUTO) 0 % (0-10); HEMATOCRIT 37 % (40-54); LYMPHOCYTES # (AUTO) 1.4 10^3/uL (1.0-4.0); LYMPHOCYTES % (AUTO) 42 % (12-44); MEAN CORPUSCULAR HEMOGLOBIN 37 pg (25-34); MEAN CORPUSCULAR HGB CONC 32 g/dL (32-36); MEAN CORPUSCULAR VOLUME 115 fL (80-99); MEAN PLATELET VOLUME 11.4 fL (9.0-12.2); MONOCYTES # (AUTO) 0.4 10^3/uL (0.0-1.0); MONOCYTES % (AUTO) 12 % (0-12); NEUTROPHILS # (AUTO) 1.5 10^3/uL (1.8-7.8); NEUTROPHILS % (AUTO) 46 % (42-75); PLATELET COUNT 175 10^3/uL (130-400); WHITE BLOOD COUNT 3.2 10^3/uL (4.3-11.0)
[2022-09-29 16:21] LABS: POTASSIUM 4.1 MMOL/L (3.6-5.0)
[2022-09-29 16:22] LABS: CALCIUM 8.5 MG/DL (8.5-10.1)
[2022-09-29 16:24] LABS: TOTAL PROTEIN 7.2 GM/DL (6.4-8.2)
[2022-09-29 16:27] LABS: CREATININE SERUM 1.01 MG/DL (0.60-1.30)
--- NOTE | 2022-09-29 16:30 | ED Respiratory ---
General Chief Complaint: Respiratory Problems Stated Complaint: SOA - L LEG SWELLING Nursing Triage Note: PT PRESENTS TO ED VIA POV FROM HOME WITH COMPLAINTS OF SOA SINCE LAST NIGHT-WORSE WITH EXERTION, L SIDED CP STARTINGA T 1300 TODAY, LEG SWELLING FOR SEVERAL MONTHS. PT ALSO REPORTS HIS BS TODAY WAS 500. Source: patient Exam Limitations: no limitations (FREIDA OLVERA) History of Present Illness Date Seen by Provider: Sep 29, 2022 Time Seen by Provider: 16:28 Initial Comments Patient Is a 52-year-old male who presents to the ED complaints of shortness of breath. Shortness of breath started last night. Shortness of breath appears be worse with exertion as well as when he lays down. Mild cough. History of smoking but denies history of COPD. History of CHF. Patient states he started developing pain in the right side his neck when he woke up. Pain is worse with movement. May have slept wrong. Denies of any specific chest pain, abdominal pain vomiting or diarrhea. Complaining of left leg swelling and pain for the past 2 weeks. Denies of any recent travels or surgeries. Denies of any blood thinner use or history of known DVT. He also reports swelling to the right leg as well but worse on the left. Denies fever, chills, body aches, headache, dizziness. 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 Type II diabetic currently on insulin. Does take lisinopril. (FREIDA OLVERA) Allergies and Home Medications Allergies Coded Allergies: No Known Drug Allergies (Unverified , 02/04/13) Patient Home Medication List Home Medication List Reviewed: Yes (FREIDA OLVERA) Amoxicillin/Potassium Clav (Amox Tr-K Clv 875-125 mg Tab) 875 Mg-125 Mg Tablet, 1 EACH PO BID Prescribed by: AGATHA AVILA on 07/27/22 194 Calcium Carbonate/Vitamin D3 (Calcium 1,000 + D3 Caplet) 1,000 Mg-20 Tablet, 1 EACH PO DAILY, (Reported) Entered as Reported by: MARI VAZQUEZ on 09/12/21 1331 Furosemide (Lasix) 20 Mg Tablet, 20 MG PO DAILY Prescribed by: WILL RUIZ on 06/01/22 1752 Furosemide (Lasix) 20 Mg Tablet, 20 MG PO DAILY Prescribed by: AGATHA AVILA on 07/27/221940 Furosemide (Lasix) 20 Mg Tablet, 20 MG PO DAILY Prescribed by: AGATHA AVILA on 09/29/221944 Gabapentin (Gabapentin) 600 Mg Tablet, 600 MG PO BID, (Reported) Entered as Reported by: MARI VAZQUEZ on 09/12/21 132 Glipizide (Glipizide) 5 Mg Tablet, 5 MG PO BID, (Reported) Entered as Reported by: MARI VAZQUEZ on 09/12/21 1325 Insulin Aspart (Novolog Flexpen) 100 Unit/Ml (3 Ml) Solution, 12 UNITS SQ DAILY, (Reported) Entered as Reported by: MARI VAZQUEZ on 09/12/21 1323 Insulin Detemir (Levemir Flextouch) 100 Unit/Ml (3 Ml) Insuln.pen, 20 UNIT SQ HS, (Reported) Entered as Reported by: MARI VAZQUEZ on 09/12/21 1324 Lisinopril (Lisinopril) 5 Mg Tablet, 5 MG PO DAILY, (Reported) Entered as Reported by: MARI VAZQUEZ on 09/12/21 1328 Multivitamin with Folic Acid (One Daily Multivitamin Tablet) 400 Mcg Tablet, 400 MCG PO DAILY, (Reported) Entered as Reported by: MARI VAZQUEZ on 09/12/21 1329 Nabumetone (Nabumetone) 500 Mg Tablet, 500 MG PO BID PRN for PAIN-MILD (1-4), (Reported) Entered as Reported by: ELIEZER MOSS on 09/26/21 1145 Pantoprazole Sodium (Protonix) 40 Mg Tablet.dr, 40 MG PO DAILY PRN for HEARTBURN, (Reported) Entered as Reported by: JAEL LOPEZ on 01/13/18 1030 Sertraline HCl (Sertraline HCl) 100 Mg Tablet, 100 MG PO DAILY, (Reported) Entered as Reported by: MARI VAZQUEZ on 09/12/21 1322 Sildenafil Citrate (Sildenafil Citrate) 50 Mg Tablet, 50 MG PO DAILY PRN for ERECTILE DYSFUNCTION, (Reported) Entered as Reported by: MARI VAZQUEZ on 09/12/21 1337 Simvastatin (Simvastatin) 20 Mg Tablet, 20 MG PO DAILY, (Reported) Entered as Reported by: JAEL LOPEZ on 01/13/18 1040 Tramadol HCl (Tramadol HCl) 50 Mg Tablet, 50 MG PO TID PRN for PAIN-MODERATE (5- 7), (Reported) Entered as Reported by: MARI VAZQUEZ on 09/12/21 1327 Vit A,C & E/Lutein/Minerals (Healthy Eyes Tablet) 300MCG-200 Tablet, 1 EACH PO DAILY, (Reported) Entered as Reported by: MARI VAZQUEZ on 09/12/21 1330 Review of Systems Review of Systems Constitutional: No chills, No diaphoresis EENTM: No hearing loss, No blurred vision, No double vision Respiratory: cough; No dyspnea on exertion; short of breath Cardiovascular: No chest pain Gastrointestinal: No abdominal pain, No constipation, No diarrhea, No nausea, No vomiting Genitourinary: No decreased output, No discharge Musculoskeletal: No back pain, No joint pain; other (leg swelling) Skin: No change in color, No change in hair/nails (FREIDA OLVERA) All Other Systems Reviewed Negative Unless Noted: Yes (FREIDA OLVERA) Past Jbmstwk-Pikari-Ahznnt Hx Patient Social History Tobacco Use?: Yes Tobacco type used: Cigarettes Smoking Status: Current Everyday Smoker Use of E-Cig and/or Vaping dev: No Substance use?: No Alcohol Use?: Yes Alcohol type: Beer Alcohol Frequency: Several times a month Pt feels they are or have been: No (FREIDA OLVERA) Immunizations Up To Date Tetanus Booster (TDap): Unknown First/Initial COVID19 Vaccinat: X3 Second COVID19 Vaccination Ted: X3 Third COVID19 Vaccination Date: X3 (FREIDA OLVERA) Seasonal Allergies Seasonal Allergies: No (FREIDA OLVERA) Past Medical History Surgery/Hospitalization HX: DM2, htn, CHF Surgeries: No Respiratory: Yes Asthma Cardiac: No High Cholesterol, Hypertension Neurological: Yes (NEUROPATHY IN HANDS AND FEET) Neuropathy Reproductive Disorders: No Sexually Transmitted Disease: No HIV/AIDS: No Genitourinary: No Gastrointestinal: No Musculoskeletal: Yes (R knee) Arthritis Endocrine: Yes Diabetes, Insulin dep HEENT: No Cancer: No Psychosocial: No Integumentary: No Blood Disorders: No Adverse Reaction/Blood Tranf: No (FREIDA OLVERA) Family Medical History No Pertinent Family Hx (FREIDA OLVERA) Physical Exam Vital Signs - First Documented 09/29/22 16:00 Temp 37.0 Pulse 97 Resp 20 B/P (MAP) 126/88 (101) Pulse Ox 98 (BLANQUITA HEMPHILL MD) Capillary Refill : Less Than 3 Seconds (FREIDA OLVERA) Height: 5'8.00" Weight: 153lbs. 1.0oz. 69.595323vd; 24.00 BMI Method:Stated General Appearance: WD/WN, no apparent distress Eyes: Bilateral Eye Normal Inspection, Bilateral Eye PERRL, Bilateral Eye EOMI HEENT: PERRL/EOMI, normal ENT inspection, TMs normal, pharynx normal Neck: non-tender, full range of motion, supple, normal inspection Respiratory: chest non-tender, lungs clear, normal breath sounds, no respiratory distress, no accessory muscle use Cardiovascular: regular rate, rhythm, no edema, no gallop, no JVD Gastrointestinal: normal bowel sounds, non tender, soft, no organomegaly Extremities: normal range of motion, other (Left leg +2 pitting edema with discomfort and tenderness. 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, no motor/sensory deficits, normal mood/affect, oriented x 3 (FREIDA OLVERA) Progress/Results/Core Measures Suspected Sepsis SIRS Temperature: Pulse: 97 Respiratory Rate: 20 Laboratory Tests 09/29/22 16:06: White Blood Count 3.2L Blood Pressure 126 /88 Mean: 101 Laboratory Tests 09/29/22 16:06: Creatinine 1.01, Platelet Count 175, Total Bilirubin 1.0 (FREIDA OLVERA) Results/Orders Lab Results Laboratory Tests Test 09/29/22 16:04 09/29/22 16:06 09/29/22 17:07 09/29/22 19:14 Range/Units D-Dimer 4.26 H 0.00-0.49 UG/ML White Blood Count 3.2 L 4.3-11.0 10^3/uL Red Blood Count 3.23 L 4.30-5.52 10^6/uL Hemoglobin 12.0 L 13.3-17.7 g/dL Hematocrit 37 L 40-54 % Mean Corpuscular Volume 115 H 80-99 fL Mean Corpuscular Hemoglobin 37 H 25-34 pg Mean Corpuscular Hemoglobin Concent 32 32-36 g/dL Red Cell Distribution Width 14.1 10.0-14.5 % Platelet Count 175 130-400 10^3/uL Mean Platelet Volume 11.4 9.0-12.2 fL Immature Granulocyte % (Auto) 0 % Neutrophils (%) (Auto) 46 42-75 % Lymphocytes (%) (Auto) 42 12-44 % Monocytes (%) (Auto) 12 0-12 % Eosinophils (%) (Auto) 0 0-10 % Basophils (%) (Auto) 0 0-10 % Neutrophils # (Auto) 1.5 L 1.8-7.8 10^3/uL Lymphocytes # (Auto) 1.4 1.0-4.0 10^3/uL Monocytes # (Auto) 0.4 0.0-1.0 10^3/uL Eosinophils # (Auto) 0.0 0.0-0.3 10^3/uL Basophils # (Auto) 0.0 0.0-0.1 10^3/uL Immature Granulocyte # (Auto) 0.0 0.0-0.1 10^3/uL Sodium Level 140 135-145 MMOL/L Potassium Level 4.1 3.6-5.0 MMOL/L Chloride Level 106 98-107 MMOL/L Carbon Dioxide Level 25 21-32 MMOL/L Anion Gap 9 5-14 MMOL/L Blood Urea Nitrogen 14 7-18 MG/DL Creatinine 1.01 0.60-1.30 MG/DL Estimat Glomerular Filtration Rate 89 BUN/Creatinine Ratio 14 Glucose Level 296 H 70-105 MG/DL Calcium Level 8.5 8.5-10.1 MG/DL Corrected Calcium 8.5 8.5-10.1 MG/DL Magnesium Level 2.0 1.6-2.4 MG/DL Total Bilirubin 1.0 0.1-1.0 MG/DL Aspartate Amino Transf (AST/SGOT) 26 5-34 U/L Alanine Aminotransferase (ALT/SGPT) 29 0-55 U/L Alkaline Phosphatase 184 H 40-136 U/L Troponin I 0.146 H 0.168 H <0.028 NG/ML C-Reactive Protein High Sensitivity 0.28 0.00-0.50 MG/DL B-Type Natriuretic Peptide 1939.0 H <100.0 PG/ML Total Protein 7.2 6.4-8.2 GM/DL Albumin 4.0 3.2-4.5 GM/DL Smear Scan SARS-CoV-2 RNA (RT-PCR) Not Detected Not Detecte (BLANQUITA HEMPHILL MD) My Orders Orders - BLANQUITA HEMPHILL MD Ekg Tracing (09/29/22 15:59) Bnp Ashley (09/29/22 16:08) Cbc With Automated Diff (09/29/22 16:08) Comprehensive Metabolic Panel (09/29/22 16:08) Hs C Reactive Protein (09/29/22 16:08) Magnesium (09/29/22 16:08) Ed Iv/Invasive Line Start (09/29/22 16:08) Covid 19 Inhouse Test (09/29/22 16:08) (BLANQUITA HEMPHILL MD) Vital Signs/I&O 09/29/22 09/29/22 16:00 19:50 Temp 37.0 Pulse 97 84 Resp 20 20 B/P (MAP) 126/88 (101) 133/98 Pulse Ox 98 100 (BLANQUITA HEMPHILL MD) Vital Signs/I&O Capillary Refill : Less Than 3 Seconds (FREIDA OLVERA) Blood Pressure Mean: 101 ECG Comment This rhythm with short MS interval, left atrial enlargement, right ventricular hypertrophy. 94 bpm, QRS duration 115 MS, QTc 424 MS (FREIDA OLVERA) Departure Communication (PCP) Previous ER visits, H&P, lab testing. Reviewed previous cardiology notes. Patient presents ED with shortness of breath started last night. Right-sided neck pain when he woke up around 1 PM worse with movement. Pain in the left leg with swelling over the past 2 weeks. On exam +2 pitting edema bilateral lower extremity worse to the left. Neurovascular intact. Patient was not hypoxic or tachycardic. Stable blood pressure. Poor historian. Unclear what medication he is currently taking. Denies Lasix. Patient did receive a full aspirin here. Right-sided neck tenderness worse with movement. Denies any specific chest pain or abdominal pain. No vomiting or diarrhea. EKG cardio work-up chest x- ray ultrasound left leg was ordered. Ultrasound the left leg was negative for DVT. Chest x-ray cardiomegaly without evidence of pneumonia, pleural effusion, pneumothorax. CBC showed white blood count 3.2, hemoglobin 12. Chronically low. Normal platelet count. Chemistry glucose 296. Type II diabetic. States he takes insulin. Initial troponin 0.146. BNP 1900. Slight worse from 17,000 on July. Chronically elevated troponin near normal baseline. Denies of any specific chest pain. Due to the shortness of breath and elevated troponin recommended delta troponin at 3 hours. He did have an elevated D-dimer at 4. CT angio of the chest showed no evidence of PE. Cardiac enlargement. Small to moderate right pleural effusion. Patient received 40 mg IV Lasix. Concerning for worsening CHF over the past 3-4 months. Not currently on Lasix but has been prescribed when seen in the ED. 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 Patient requesting to be discharged. Did discuss admission for worsening CHF and further cardiac evaluation. Patient refused. He states he will follow-up outpatient. Patient vital signs stable. Does not require oxygen. provided cardilogy Dr. Belcher follow up. Will discharge with Lasix at this time. Patient states he is on blood pressure medication. Cannot recall the medication. Discussed importance of taking aspirin and his medications. History of coronary disease. Further evaluation for the elevated troponin is needed and better management of his CHF. Discussed statin. Patient Was admitted last year with a full cardiac work-up for NSTEMI and elevated troponin. Near stable troponin. Thought it was more secondary to acute kidney injury, hypotension or hypoxia. Patient had a cardiac cath at [facility] in 2020 that showed diffuse 50% CAD, LVEF 60%. Echo September 06, 2020 showed LVEF 60 to 65%. Discussed the importance of follow-up with cardiology. Return precautions were discussed such as developing chest pain or worsening shortness of breath. Patient currently asymptomatic. EKG today comparable from EKG on July 27, 2022. EKG today showed no evidence of ST elevation or depression. (FREIDA OLVERA) Impression Primary Impression: CHF (congestive heart failure) Additional Impression: Elevated troponin Disposition: 01 HOME, SELF-CARE Condition: Stable Departure-Patient Inst. Decision time for Depature: 19:44 (FREIDA OLVERA) [place] [facility] [place] Primary Care Physician CARLA BELCHER MD Patient Instructions: CHF Add. Discharge Instructions: Need to take Lasix for CHF exacerbation. Follow-up with Dr. Belcher on . If any worsening symptoms return back to ED All discharge instructions reviewed with patient and/or family. Voiced understanding. Scripts Furosemide (Lasix) 20 Mg Tablet 20 MG PO DAILY for 10 Days, #10 TAB Prov: FREIDA OLVERA 09/29/22 ATTENDING PHYSICIAN NOTE: I was physically present in the Emergency Department during the evaluation and care of this patient as attending physician, and I was available for consultation and assistance. I did not personally interview or examine this patient, nor was I otherwise directly involved in the care or decision making for this patient. (BLANQUITA HEMPHILL MD) FREIDA OLVERA Sep 29, 2022 16:30 BLANQUITA HEMPHILL MD Sep 30, 2022 08:44
--- NOTE | 2022-09-29 16:40 | Diagnostic Imaging Report ---
INDICATION: Chest pain. Frontal chest obtained at 4:32 p.m. and compared to 07/27/2022. FINDINGS: There is cardiomegaly. There is poor inspiration with mild bibasilar atelectasis. There is no pneumothorax or pleural fluid. IMPRESSION: Cardiomegaly with poor inspiration and mild bibasilar atelectasis. No overt pleural fluid or pneumothorax. Dictated by: Dictated on workstation # [id number]
[2022-09-29] MEDS ORDERED: ASPIRIN 81 MG CHEW (CHILDREN'S ASA) PO ONE (16:45)
--- NOTE | 2022-09-29 17:32 | Diagnostic Imaging Report ---
INDICATION: leg pain, swelling TECHNIQUE: Multiple real-time grayscale images were obtained over the left lower extremity in various projections. Additional duplex Doppler and color Doppler images were also obtained. CORRELATION STUDY: None FINDINGS: Color and grayscale sonographic images demonstrate no intraluminal defect within the visualized portion of the common femoral, superficial femoral and/or popliteal veins to suggest thrombus formation. These vessels demonstrate normal response to compression and augmentation. No soft tissue fluid collection. IMPRESSION: 1. Negative for deep venous thrombosis of the left leg. Dictated by: Dictated on workstation # [id number]
[2022-09-29] MEDS ORDERED: NS 100 ML (IVPB) BAG IV ONE (17:45)
[2022-09-29] MEDS ORDERED: IOHEXOL 350 MG/ML 100 ML (OMNIPAQUE 350) VIAL IV ONE (17:45)
[2022-09-29] MEDS ORDERED: HOLD METFORMIN - RECEIVED CONTRAST 20 ML VIAL IV SCH (17:45)
[2022-09-29] MEDS ORDERED: FUROSEMIDE 40 MG/4 ML INJ (LASIX) IVP ONE (18:00)
--- NOTE | 2022-09-29 18:25 | Diagnostic Imaging Report ---
INDICATION: 52-year-old male, shortness of breath, chest pain, leg pain. TECHNIQUE: CT imaging of the chest following the administration of intravenous contrast. Multiplanar reformatted including MIP images. Auto Exposure Controls were utilized during the CT exam to meet ALARA standards for radiation dose reduction. CORRELATION STUDY: CT chest 07/27/2022 FINDINGS: Heart size is enlarged. However, no disproportionate right heart enlargement. There is, however, reflux of contrast into the inferior vena cava and hepatic vein. No pulmonary artery filling defect to suggest pulmonary embolism. Thoracic aortic contour appearing unremarkable. No pathologically enlarged mediastinal lymph nodes. Slight interval enlargement of a small to moderate right pleural effusion which layers dependently. No significant left pleural effusion. Minimal groundglass opacities in the lung collado. No consolidating infiltrate. Azygos vein is mildly prominent. Visualized portion of the upper abdomen demonstrates calcified granulomas in the spleen. There is slight nodularity of the mesentery left upper quadrant. Small volume upper abdominal ascites. Stent superior mesenteric artery. IMPRESSION: 1. No CTA evidence for pulmonary embolism. 2. Cardiac enlargement. There is reflux of contrast into the inferior vena cava and hepatic veins as well as interval enlargement of small to moderate right pleural effusion. Mild distention of the azygos vein. May be reflective of heart failure. If not previously performed, echocardiography would be recommended. 3. Small volume upper abdominal ascites. Also slight mesenteric nodularity left upper quadrant. Dictated by: Dictated on workstation # [id number]
[2022-09-29] MEDS ORDERED: FURO-125 PO (19:45)
[2022-09-29 19:50] VITALS: BP 133/98
[2022-09-30] MEDS ORDERED: FUROSEMIDE 40 MG/4 ML INJ (LASIX) IVP SCH (09:00)
== END 2022-09-29 19:53 | disposition home or self-care (01) ==
LOC: EDUNIT# 15:49 → ER 15:50
DX: I11.0 Hypertensive heart disease with heart failure (principal); I50.9 Heart failure, unspecified; E11.40 Type 2 diabetes mellitus with diabetic neuropathy, unspecified; M54.2 Cervicalgia; R77.8 Other specified abnormalities of plasma proteins; F17.210 Nicotine dependence, cigarettes, uncomplicated; Z79.4 Long term (current) use of insulin; Z79.899 Other long term (current) drug therapy; Z20.822 Contact with and (suspected) exposure to COVID-19
CPT/HCPCS: 36415; 71045; 71275; 80053; 83735; 83880; 84484; 85025; 85379; 86141; 87636; 93005

== ENCOUNTER → 2022-11-09 | Outpatient (CLI) | payer MEDICARE | LOC: CARD 13:48 | PROVIDERS: ATTEND Pediatrics | DX: M25.561 Pain in right knee (principal) | CPT/HCPCS: 93306 ==

== ENCOUNTER 2023-01-11 21:00 | Emergency (ER) | payer MEDICARE ==
[~2023-01-11] VITALS: Ht 172 cm; Wt 73.4 kg
--- NOTE | 2023-01-11 21:55 | Diagnostic Imaging Report ---
PROCEDURE: CT head and CT cervical spine without contrast. TECHNIQUE: Multiple contiguous axial images were obtained through the brain and cervical spine without the use of intravenous contrast. Sagittal and coronal reformations through the cervical spine were then performed. Auto Exposure Controls were utilized during the CT exam to meet ALARA standards for radiation dose reduction. INDICATION: Trauma COMPARISON: None available. FINDINGS: Head: No hyperdense hemorrhage or space-occupying mass. No hydrocephalus or midline shift. No evidence of territorial infarct. Basilar cisterns are patent. No focal scalp swelling. No skull fracture. The paranasal sinuses and mastoid air cells are clear. Cervical spine: No acute fracture or traumatic malalignment. No high-grade spinal canal narrowing. Airway is patent. No cervical lymphadenopathy. Visualized thyroid is normal. IMPRESSION: 1. No acute intracranial process or skull fracture. 2. No acute fracture or traumatic malalignment of the cervical spine. Dictated by: Dictated on workstation # [id number]
[2023-01-11 22:05] LABS: POTASSIUM 4.1 MMOL/L (3.6-5.0)
[2023-01-11 22:06] LABS: CALCIUM 9.2 MG/DL (8.5-10.1)
[2023-01-11 22:11] LABS: CREATININE SERUM 1.23 MG/DL (0.60-1.30)
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
[2023-01-12 00:24] VITALS: BP 136/89
== END 2023-01-12 00:24 | disposition home or self-care (01) ==
LOC: EDUNIT# 21:00 → ER 21:01
DX: E11.649 Type 2 diabetes mellitus with hypoglycemia without coma (principal); M54.2 Cervicalgia; E11.40 Type 2 diabetes mellitus with diabetic neuropathy, unspecified; F17.210 Nicotine dependence, cigarettes, uncomplicated; Z79.4 Long term (current) use of insulin; V47.5XXA Car driver injured in collision with fixed or stationary object in traffic accident, initial encounter; Y92.410 Unspecified street and highway as the place of occurrence of the external cause
CPT/HCPCS: 36415; 70450; 72125; 80048; 82947

== ENCOUNTER 2023-01-19 07:09 | Day surgery (SDC) | payer MEDICARE ==
[~2023-01-19] VITALS: Ht 172.7 cm; Wt 74.0 kg
[2023-01-19] VITALS (23 sets, daily range): BP systolic 88–128; BP diastolic 63–87
[2023-01-19] MEDS ORDERED: NS IV 1000 ML 1,000 ML IV SCH (07:15)
[2023-01-19] MEDS ORDERED: LIDOCAINE 1% INJ 20 ML VIAL ONE (07:17)
[2023-01-19] MEDS ORDERED: HEParin (CATH LAB) 2,000 ML IV ONE ×2 (07:17→13:58)
[2023-01-19] MEDS ORDERED: NS IV 1000 ML 1,000 ML ONE ×2 (07:17→13:58)
[2023-01-19 07:57] LABS: HEMATOCRIT 35 % (40-54); HEMOGLOBIN 12.2 g/dL (13.3-17.7); MEAN CORPUSCULAR HEMOGLOBIN 38 pg (25-34); MEAN CORPUSCULAR HGB CONC 35 g/dL (32-36); MEAN CORPUSCULAR VOLUME 111 fL (80-99); MEAN PLATELET VOLUME 10.2 fL (9.0-12.2); PLATELET COUNT 207 10^3/uL (130-400); WHITE BLOOD COUNT 4.7 10^3/uL (4.3-11.0)
[2023-01-19 08:19] LABS: ALBUMIN 4.1 GM/DL (3.2-4.5); BILIRUBIN,TOTAL 0.5 MG/DL (0.1-1.0); CALCIUM 9.1 MG/DL (8.5-10.1); CREATININE SERUM 0.96 MG/DL (0.60-1.30); TOTAL PROTEIN 7.7 GM/DL (6.4-8.2)
[2023-01-19 08:36] LABS: PROTHROMBIN TIME PATIENT 12.9 SEC (12.2-14.7)
[2023-01-19] MEDS ORDERED: FURO20TA4 PO (08:50)
[2023-01-19] MEDS ORDERED: INSU100I88 SQ (08:50)
[2023-01-19] MEDS ORDERED: FURO40TA4 PO (08:50)
[2023-01-19] MEDS ORDERED: DULA1.5P2 SQ (08:50)
[2023-01-19] MEDS ORDERED: TRZ50T PO (08:50)
[2023-01-19] MEDS ORDERED: ASPI-999 PO (08:50)
[2023-01-19] MEDS ORDERED: RT-ALBUINH INH (08:50)
[2023-01-19] MEDS ORDERED: MIDAZOLAM INJ 5 MG/5 ML VIAL ONE ×2 (10:28→13:58)
[2023-01-19] MEDS ORDERED: VERAPAMIL 5 MG/2 ML (CALAN) VIAL IV ONE (10:28)
[2023-01-19] MEDS ORDERED: fentaNYL INJECTION 100 MCG/2 ML VIAL ONE ×2 (10:28→13:58)
[2023-01-19] MEDS ORDERED: NITRO DRIP 25000 MCG/D5W 250 ML IV ONE (10:29)
[2023-01-19] MEDS ORDERED: HEParin 1000 UNIT/ML (10ML VIAL) FOR BOLUS ONE (10:29)
[2023-01-19] MEDS ORDERED: EPTIFIBATIDE BOLUS 20 ML IV ONE (11:35)
--- NOTE | 2023-01-19 12:10 | Cardiac Procedure Note-CS/ASA ---
Pre-Procedure Note Pre-Op Procedure Note Date of Available H&P: Jan 14, 2023 Date H&P Reviewed: Jan 19, 2023 Time H&P Reviewed: 10:00 History & Physical: H&P Reviewed, No changes noted Moderate Sedation PreProcedure ASA Score 3 Airway Lungs Heart ASA score ASA 1: a normal healthy patient ASA 2: a patient with a mild systemic disease (mid diabetes, controlled hypertension, obesity ASA 3: a patient with a severe systemic disease that limits activity (angina, COPD, prior Myocardial infarction) ASA 4: a patient with an incapacitating disease that is a constant threat to life (CHF, renal failure) ASA 5: a moribund patient not expected to survive 24 hrs. (ruptured aneurysm) ASA 6: a declared brain- patient whose organs are being harvested. For emergent operations, add the letter E after the classification Mallampati Classification Grade 2 Sedation Plan Analgesia, Amnesia, Plan communicated to team members The patient is an appropriate candidate to undergo the planned procedure, sedation, and anesthesia. The patient immediately re-assessed prior to indication. TAQUERIA ERIC MD FACP FAC CCDS Jan 19, 2023 12:10
--- NOTE | 2023-01-19 12:24 | Cardiac Cath Report ---
CARDIAC CATHETERIZATION DATE OF PROCEDURE: 01-19-23 INDICATION: Chest pain HISTORY: The patient is a 52 year old male with continuing chest pain despite medical therapy. MPI has shown anteroapical ischemia PROCEDURES PERFORMED: 1. Cor angion; 2. LHC and LV antio; 3. iFR of LAD; 4. Stenting of mid LAD; 5. IVUS of LAD PROCEDURE DESCRIPTION: After informed consent and in the fasting state, left heart catheterization was performed through the R femoral artery utilizing a 5 Estonian system by percutaneous approach. JL4 and JL3.5 caths for L cors; JR4 for R cor; Pigtail for LHC and LV angio. HEMODYNAMICS: LVEDP 19 mmHg; no significant pressure gradient on pullback across the aortic valve CORONARY ANGIOGRAPHY: Left main coronary artery: short, Ok Left anterior descending coronary artery: 90% mid LAD with iFR 0.46 (treated with successful stenting with Skypoint 2.5 x 23, post-PCI IVUS confirmed good stent apposition w/o complications); very distal LAD 99-100% (vessel of very small caliber) Left circumflex coronary artery: diffuse moderate disease Right coronary artery: Dominant; chronic mid vessel occlusion with R to R and L to R collaterals LV Angiography SEN projection only: Apical hypokinesis. LVEF approx 45% PERCUTANEOUS CORONARY INTERVENTION TO MID LAD Pre-PCI 90% mid LAD with iFr 0.46 and with TAD 3 flow Guide: 6F JL3.5 Wire: Omni IFR wire for iFR Wire: BMW for PCI Balloon: MiniTrek 2.0 x 20 Stent: Skypoint 2.5 x 23 Post-PCI 0% residual in mid LAD with TAD 3 flow Post-PCI IVUS ([facility] IVUS) confirmed good stent expansion and apposition and no complications IMPRESSION: 1. Left main coronary artery: short, Ok. Left anterior descending coronary artery: 90% mid LAD with iFR 0.46 (treated with successful stenting with Skypoint 2.5 x 23, post-PCI IVUS confirmed good stent apposition w/o complications); very distal LAD 99-100% (vessel of very small caliber). Left circumflex coronary artery: diffuse moderate disease. Right coronary artery: Dominant; chronic mid vessel occlusion with R to R and L to R collaterals 2. LVEDP 19 mmHg 3. Apical hypokinesis. LVEF approx 45% TAQUERIA ERIC MD FACP FACC CCDS Jan 19, 2023 12:24
[2023-01-19] MEDS ORDERED: CLOPIDOGREL 300 MG TABLET PO ONE (12:26)
[2023-01-19] MEDS ORDERED: ASPIRIN 81 MG CHEWABLE TABLET ONE (12:26)
[2023-01-19] MEDS ORDERED: PATIENT MAY USE OWN MEDS, ALL PO SCH (12:30)
[2023-01-19] MEDS ORDERED: ASPIRIN 81 MG CHEWABLE TABLET PO PRN (12:30)
[2023-01-19] MEDS ORDERED: NON-FORMULARY MEDICATION 1 EA EA (Dulaglutide (Trulicity) 1.5 MG) SQ SCH (12:30)
[2023-01-19] MEDS ORDERED: FUROSEMIDE 40 MG TABLET PO PRN (12:30)
[2023-01-19] MEDS ORDERED: RT-ALBUTEROL SULF 2.5 MG/3 ML PRE-MIX VIAL INH PRN (12:30)
[2023-01-19] MEDS ORDERED: FUROSEMIDE 20 MG TABLET PO PRN (12:30)
[2023-01-19] MEDS ORDERED: NON-FORMULARY MEDICATION 1 EA EA (Nabumetone 500 MG) PO PRN (12:30)
[2023-01-19] MEDS ORDERED: ceFAZolin INJECTION 1,000 MG ONE (14:21)
--- NOTE | 2023-01-19 14:28 | Cardiac Procedure Note-CS/ASA ---
Pre-Procedure Note Pre-Op Procedure Note Date of Available H&P: Jan 14, 2023 Date H&P Reviewed: Jan 19, 2023 Time H&P Reviewed: 14:10 History & Physical: H&P Reviewed, No changes noted Moderate Sedation PreProcedure Time 10:00 ASA Score 3 Airway Lungs Heart ASA score ASA 1: a normal healthy patient ASA 2: a patient with a mild systemic disease (mid diabetes, controlled hypertension, obesity ASA 3: a patient with a severe systemic disease that limits activity (angina, COPD, prior Myocardial infarction) ASA 4: a patient with an incapacitating disease that is a constant threat to life (CHF, renal failure) ASA 5: a moribund patient not expected to survive 24 hrs. (ruptured aneurysm) ASA 6: a declared brain- patient whose organs are being harvested. For emergent operations, add the letter E after the classification Mallampati Classification Grade 2 Sedation Plan Analgesia, Amnesia, Plan communicated to team members The patient is an appropriate candidate to undergo the planned procedure, sedation, and anesthesia. The patient immediately re-assessed prior to indication. TAQUERIA ERIC MD FACP FAC CCDS Jan 19, 2023 14:28
--- NOTE | 2023-01-19 14:35 | Cardiac Cath Report ---
CARDIAC CATHETERIZATION DATE OF PROCEDURE: 01-19-23 INDICATION: Recurrent chest pain after PCI LAD earlier today HISTORY: The patient is a 52 year old male with recurrent chest pain after PCI LAD earlier today PROCEDURES PERFORMED: 1. Cor angio PROCEDURE DESCRIPTION: After informed consent and in the fasting state, left heart catheterization was performed through the [] [] artery utilizing a [] Tajik system by percutaneous approach. Standard Janette catheters were utilized for the diagnostic portion of the procedure. All catheters were exchanged over a guidewire. CORONARY ANGIOGRAPHY: Left main coronary artery: short, Ok. Left anterior descending coronary artery: Patent Skypoint 2.5 x 23 in mid LAD placed earlier today (TAD 3 flow), very distal LAD 99-100% unchanged from before (vessel of very small caliber). Left circumflex coronary artery: diffuse moderate disease. Right coronary artery: Dominant; chronic mid vessel occlusion with R to R and L to R collaterals IMPRESSION: Left main coronary artery: short, Ok. Left anterior descending coronary artery: Patent Skypoint 2.5 x 23 in mid LAD placed earlier today (TAD 3 flow), very distal LAD 99-100% unchanged from before (vessel of very small caliber). Left circumflex coronary artery: diffuse moderate disease. Right coronary artery: Dominant; chronic mid vessel occlusion with R to R and L to R collaterals Please refer to the cath report of earlier today for details of LAD intervention TAQUERIA ERIC MD [facility] Jan 19, 2023 14:35
[2023-01-19] MEDS ORDERED: IBUPROFEN 600 MG TABLET PO PRN (15:15)
[2023-01-19] MEDS: NS IV 1000 ML 1,000 ML IV SCH ×2 (16:18→22:01)
--- NOTE | 2023-01-19 18:10 | Tele-ICU Consult ---
History of Present Illness History of Present Illness Date Seen by Provider: Jan 19, 2023 Time Seen by Provider: 18:09 History of Present Illness eICU Critical Care Consult 52 yo M went to CCL found to have occlusion LAD, stent placed, continued to have CP, brought back to CCL findings unchanged Allergies and Home Medications Allergies Coded Allergies: No Known Drug Allergies (Unverified , 02/04/13) Home Medications Albuterol Sulfate 1 Puff Puff, 2 PUFF INH Q4H PRN for SHORTNESS OF BREATH, (Reported) Aspirin 81 Mg Tab.chew, 81 MG PO DAILY PRN for PAIN-MILD (1-4), (Reported) Dulaglutide 1.5 Mg/0.5 Ml Pen.injctr, 1.5 MG SQ WEDNESDAY, (Reported) Furosemide 20 Mg Tablet, 20 MG PO HS PRN for FLUID RETENTION, (Reported) Furosemide 40 Mg Tablet, 40 MG PO DAILY PRN for FLUID RETENTION, (Reported) Gabapentin 600 Mg Tablet, 600 MG PO BID, (Reported) Glipizide 5 Mg Tablet, 5 MG PO BID, (Reported) Insulin Aspart 100 Unit/Ml (3 Ml) Solution, 6 UNITS SQ DAILY, (Reported) LAST FILLED 05/22/2022 #1 BOX Nabumetone 500 Mg Tablet, 500 MG PO BID PRN for PAIN-MILD (1-4), (Reported) Pantoprazole Sodium 40 Mg Tablet.dr, 40 MG PO HS, (Reported) Sertraline HCl 100 Mg Tablet, 50 MG PO DAILY, (Reported) TAKES OF A (100MG) TABLET Sildenafil Citrate 50 Mg Tablet, 50 MG PO DAILY PRN for ERECTILE DYSFUNCTION, (Reported) Tramadol HCl 50 Mg Tablet, 50 MG PO TID PRN for PAIN-MODERATE (5-7), (Reported) Trazodone HCl 50 Mg Tablet, 50 MG PO HS, (Reported) Past Medical/Social/Family Hx Immunizations Up To Date First/Initial COVID19 Vaccinat: X3 Second COVID19 Vaccination Ted: X3 Tetanus Booster (TDap): Less Than 5 Years Hepatitis A: Yes Hepatitis B: Yes TB Skin Test: None Current Status Primary Language: Tajik Past Medical History Type II Diabetes with Neuropathy Medical Non-compliance Erectile Dysfunction Mixex Hyperlipidemia Osteoarthritis Hypertension Anxiety and Depression Gout Seasonal Allergies Tobacco Abuse Porokeratosis Past Surgical History: None Review of Systems Constitutional: see HPI EENTM: see HPI Respiratory: see HPI Cardiovascular: see HPI Gastrointestinal: see HPI Genitourinary: see HPI Musculoskeletal: see HPI Skin: see HPI Psychiatric/Neurological: See HPI Focused Exam Height, Weight, BMI Height: 5'8.00" Weight: 153lbs. 1.0oz. 69.686714qp; 24.81 BMI Method:Stated Exam Exam Patient acknowledged, consented, and participated in this virtual visit which was conducted using real time audio/video Vital Signs Date Time Temp Pulse Resp B/P (MAP) Pulse Ox O2 Delivery O2 Flow Rate FiO2 01/19/23 16:45 74 9 107/75 (86) 98 Room Air 01/19/23 16:30 77 14 106/70 (82) 95 Room Air 01/19/23 16:15 79 15 104/68 (80) 96 Room Air 01/19/23 16:07 36.1 01/19/23 16:00 80 28 90/65 (73) 95 Room Air 01/19/23 15:45 80 13 91/63 (72) 95 Room Air 01/19/23 15:30 80 23 93/75 (81) 96 Room Air 01/19/23 15:15 77 13 107/66 (80) 99 Room Air 01/19/23 15:00 77 20 88/75 (79) 96 Room Air 01/19/23 14:45 80 13 114/72 (86) 97 Room Air 01/19/23 14:30 83 20 99/70 (80) 97 Room Air 01/19/23 13:45 77 20 112/74 (86) 95 Room Air 01/19/23 13:30 80 28 119/80 (92) 98 Room Air 01/19/23 13:15 77 28 115/79 (90) 93 Room Air 01/19/23 13:00 76 10 120/78 (94) 94 Room Air 01/19/23 12:46 78 01/19/23 12:45 80 12 116/81 (93) 97 Room Air 01/19/23 07:36 36.2 91 18 124/75 (91) 97 Room Air Height & Weight Height: 5'8.00" Weight: 153lbs. 1.0oz. 69.037998rb; 24.81 BMI Method:Stated General Appearance: No Apparent Distress, WD/WN Respiratory: Lungs Clear Cardiovascular: Regular Rate, Rhythm Capillary Refill: Less Than 3 Seconds Results Lab Laboratory Tests 01/19/23 07:48 Assessment/Plan Assessment/Plan CAD, s/p stent LAD continue on DPT Critical Care: Critically Ill Patient Time spent with patient (mins): 15 NADINE MATIAS MD Jan 19, 2023 18:10
[2023-01-19] MEDS: glipiZIDE 5 MG TABLET PO SCH (18:32)
[2023-01-19] MEDS: GABAPENTIN 600 MG TABLET PO SCH (20:09)
[2023-01-19] MEDS ORDERED: traZODone 50 MG (DESYREL) TAB PO SCH (21:00)
[2023-01-19] MEDS ORDERED: PANTOPRAZOLE 40 MG TABLET PO SCH (21:00)
[2023-01-20] VITALS (8 sets, daily range): BP systolic 105–126; BP diastolic 64–78
[2023-01-20] MEDS: NS IV 1000 ML 1,000 ML IV SCH (02:11)
[2023-01-20] MEDS ORDERED: inSUlin ASPART 1 UNIT/0.01 ML (PER UNIT) SQ SCH (07:00)
[2023-01-20] MEDS: glipiZIDE 5 MG TABLET PO SCH (07:54)
[2023-01-20] MEDS: GABAPENTIN 600 MG TABLET PO SCH (07:55)
--- NOTE | 2023-01-20 08:51 | Progress Note - Cardiology ---
Cardiology SOAP Progress Note Subjective: C/O mid-sternal chest burning discomfort which he reports has been present even before cardiac cath with intervention No c/o SOB No c/o right groin discomfort Objective: I&O/Vital Signs Weight (Pounds): 153 Weight (Ounces): 1.0 Weight (Calculated Kilograms): 69.468708 Side: right Groin site without hematoma: Yes Condition: DP/PT pulses palpable Bruising: mild bruising Constitutional: AAO x 3, well-developed, well-nourished Respiratory: No accessory muscle use, No respiratory distress; chest expansion is symmetric, chest is bilaterally symmetric, other (prolonged exp phase) Cardiovascular: regular rate-rhythm; No JVD; S1 and S2 Gastrointestional: No tender; soft, round; No guarding; audible bowel sounds Extremities: no lower extremity edema bilateral Neurologic/Psychiatric: oriented x 3, other (moves all extremities) Skin: No rash on exposed areas, No ulcerations on exposed areas Results/Procedures: Labs Microbiology 01/19/23 MRSA Screen - Final, Complete MRSA not isolated A/P: Assessment: CAD - Card cath by Dr winn at [place], [place] on 05/10/20 reported to have shown diffuse, 50% CAD, LVEF 60%, LVEDP 15 mmHg - Echocardiogram of 11-09-22 showed concentric hypertrophy. LVEF 55-60%. Grade 2 diastolic dysfunction - MPI 01-12-23: Apical ischemia is indicated on this study (moderate). Localized apical akinesis and global hypokinesis. Left ventricular ejection fraction is calculated to be 40%. - Cardiac cath with intervention on 01-19-23: Left main coronary artery: short, Ok. Left anterior descending coronary artery: 90% mid LAD with iFR 0.46 (treated with successful stenting with Skypoint 2.5 x 23, post-PCI IVUS confirmed good stent apposition w/o complications); very distal LAD 99-100% (vessel of very small caliber). Left circumflex coronary artery: diffuse moderate disease. Right coronary artery: Dominant; chronic mid vessel occlusion with R to R and L to R collaterals. LVEDP 19 mmHg. Apical hypokinesis. LVEF approx 45% - Cardiac cath on 01-12-23 without intervention following pt c/o CP: Left main coronary artery: short, Ok. Left anterior descending coronary artery: Patent Skypoint 2.5 x 23 in mid LAD placed earlier today (TAD 3 flow), very distal LAD 99-100% unchanged from before (vessel of very small caliber). Left circumflex coronary artery: diffuse moderate disease. Right coronary artery: Dominant; chronic mid vessel occlusion with R to R and L to R collaterals Chronic non-specific chest discomfort which does not appear cardiac in origin as shown by repeat cardiac cath as documented above - undetermined etiology - PPI started add H2 eugenio Shortness of breath, probably multifactorial - COPD - chronic diastolic CHF DM II or GUILLERMO, insulin-requiring CKD 3 HTN Tobaccoism COPD Carotid u/s of 05-10-20 at [facility] showed no significant stenosis Plan: S/P successful coronary intervention on 01-19-23 Chronic non-specific chest discomfort which does not appear cardiac in origin based on repeat cardiac cath following successful coronary intervention as noted above - add Pepcid to PPI Awaiting lab results Ambulate in halls this morning Discharge planning YUMIKO GILMORE Jan 20, 2023 08:51
[2023-01-20] MEDS ORDERED: FAMOTIDINE 20 MG TABLET PO SCH (09:00)
[2023-01-20] MEDS ORDERED: SERTRALINE 50 MG TABLET PO SCH (09:00)
[2023-01-20] MEDS ORDERED: SERTRALINE 100 MG TABLET PO SCH (09:00)
[2023-01-20] MEDS ORDERED: CLOPIDOGREL 75 MG TABLET PO SCH (09:00)
[2023-01-20] MEDS ORDERED: ASPIRIN 81 MG CHEWABLE TABLET PO SCH (09:00)
[2023-01-20] MEDS ORDERED: NON-FORMULARY MEDICATION 1 EA EA (Insulin Aspart (Novolog Flexpen) 6 UNITS) SQ SCH (09:00)
[2023-01-20] MEDS ORDERED: ASPI81TA64 PO (09:08)
[2023-01-20] MEDS ORDERED: CLOP75TA28 PO (09:08)
[2023-01-20] MEDS ORDERED: FAMO20TA5 PO (09:08)
--- NOTE | 2023-01-20 09:09 | Discharge Inst-Cardiology ---
Discharge Inst-Cardiac Discharge Medications New Medications: Aspirin (Children's Aspirin) 81 Mg Tab.chew 81 MG PO DAILY, #90 TAB 3 Refills Clopidogrel Bisulfate (Clopidogrel) 75 Mg Tablet 75 MG PO DAILY, #90 TAB 3 Refills Famotidine (Famotidine) 20 Mg Tablet 20 MG PO BID, #60 TAB 1 Refill Continued Medications: Albuterol Sulfate (Ventolin Hfa) 1 Puff Puff 2 PUFF INH Q4H PRN for SHORTNESS OF BREATH, EA Dulaglutide (Trulicity) 1.5 Mg/0.5 Ml Pen.injctr 1.5 MG SQ WEDNESDAY, EA Furosemide (Furosemide) 20 Mg Tablet 20 MG PO HS PRN for FLUID RETENTION, TAB Gabapentin (Gabapentin) 600 Mg Tablet 600 MG PO BID, TAB Glipizide (Glipizide) 5 Mg Tablet 5 MG PO BID, TAB Insulin Aspart (Novolog Flexpen) 100 Unit/Ml (3 Ml) Solution 6 UNITS SQ DAILY, EA LAST FILLED 05/22/2022 #1 BOX Nabumetone (Nabumetone) 500 Mg Tablet 500 MG PO BID PRN for PAIN-MILD (1-4), TAB Pantoprazole Sodium (Protonix) 40 Mg Tablet.dr 40 MG PO HS, TAB Sertraline HCl (Sertraline HCl) 100 Mg Tablet 50 MG PO DAILY, TAB TAKES OF A (100MG) TABLET Sildenafil Citrate (Sildenafil Citrate) 50 Mg Tablet 50 MG PO DAILY PRN for ERECTILE DYSFUNCTION, TAB Tramadol HCl (Tramadol HCl) 50 Mg Tablet 50 MG PO TID PRN for PAIN-MODERATE (5-7), TAB Trazodone HCl (Trazodone HCl) 50 Mg Tablet 50 MG PO HS, TAB Discontinued Medications: Aspirin (Aspirin) 81 Mg Tab.chew 81 MG PO DAILY PRN for PAIN-MILD (1-4), TAB Furosemide (Furosemide) 40 Mg Tablet 40 MG PO DAILY PRN for FLUID RETENTION, TAB Patient Instructions Patient Instructions: Please schedule follow up appointment to see Dr. Garcia in one week YUMIKO GILMORE Jan 20, 2023 09:09
[2023-01-20 09:15] LABS: HEMATOCRIT 30 % (40-54); HEMOGLOBIN 10.3 g/dL (13.3-17.7); MEAN CORPUSCULAR HEMOGLOBIN 38 pg (25-34); MEAN CORPUSCULAR HGB CONC 34 g/dL (32-36); MEAN CORPUSCULAR VOLUME 110 fL (80-99); MEAN PLATELET VOLUME 10.6 fL (9.0-12.2); PLATELET COUNT 166 10^3/uL (130-400); WHITE BLOOD COUNT 4.1 10^3/uL (4.3-11.0)
[2023-01-20 09:22] LABS: POTASSIUM 4.1 MMOL/L (3.6-5.0)
[2023-01-20 09:23] LABS: CALCIUM 8.3 MG/DL (8.5-10.1)
[2023-01-20 09:27] LABS: CREATININE SERUM 0.77 MG/DL (0.60-1.30)
--- NOTE | 2023-01-20 17:18 | Progress Note - Cardiology ---
Cardiology SOAP Progress Note Subjective: Mild gen weakness and malaise No shortness of breath at rest No n/v/d No focal weakness No cp or palp No groin of leg pain or dicoloration Wishes to go home Objective: I&O/Vital Signs 01/20/23 01/20/23 01/20/23 01/20/23 06:00 07:04 07:50 11:50 Temp 36.5 36.5 Pulse 79 76 84 81 Resp 21 18 20 B/P (MAP) 125/78 (94) 126/67 (86) 119/75 (90) Pulse Ox 94 94 95 O2 Delivery Room Air Room Air Room Air Weight (Pounds): 153 Weight (Ounces): 1.0 Weight (Calculated Kilograms): 69.165454 Side: right Groin site without hematoma: Yes Condition: DP/PT pulses palpable Bruising: mild bruising Constitutional: AAO x 3, well-developed, well-nourished Respiratory: No accessory muscle use, No respiratory distress; chest expansion is symmetric, chest is bilaterally symmetric, other (prolonged exp phase) Cardiovascular: regular rate-rhythm; No JVD; S1 and S2 Gastrointestional: No tender; soft, round; No guarding; audible bowel sounds Extremities: no lower extremity edema bilateral Neurologic/Psychiatric: oriented x 3, other (moves all extremities) Skin: No rash on exposed areas, No ulcerations on exposed areas Results/Procedures: Labs Laboratory Tests 01/20/23 06:21: Glucometer 164H 01/20/23 09:00: White Blood Count 4.1L, Red Blood Count 2.75L, Hemoglobin 10.3L, Hematocrit 30L, Mean Corpuscular Volume 110H, Mean Corpuscular Hemoglobin 38H, Mean Corpuscular Hemoglobin Concent 34, Red Cell Distribution Width 13.2, Platelet Count 166, Mean Platelet Volume 10.6, Sodium Level 141, Potassium Level 4.1, Chloride Level 110H, Carbon Dioxide Level 24, Anion Gap 7, Blood Urea Nitrogen 8, Creatinine 0.77, Estimat Glomerular Filtration Rate 108, BUN/Creatinine Ratio 10, Glucose Level 114H, Calcium Level 8.3L Microbiology 01/19/23 MRSA Screen - Final, Complete MRSA not isolated Laboratory Tests 01/19/23 07:48 01/20/23 09:00 A/P: Assessment: CAD - Card cath by Dr winn at [place], [place] on 05/10/20 reported to have shown diffuse, 50% CAD, LVEF 60%, LVEDP 15 mmHg - Echocardiogram of 11-09-22 showed concentric hypertrophy. LVEF 55-60%. Grade 2 diastolic dysfunction - MPI 01-12-23: Apical ischemia is indicated on this study (moderate). Localized apical akinesis and global hypokinesis. Left ventricular ejection fraction is calculated to be 40%. - Cardiac cath with intervention on 01-19-23: Left main coronary artery: short, Ok. Left anterior descending coronary artery: 90% mid LAD with iFR 0.46 (treated with successful stenting with Skypoint 2.5 x 23, post-PCI IVUS confirmed good stent apposition w/o complications); very distal LAD 99-100% (vessel of very small caliber). Left circumflex coronary artery: diffuse moderate disease. Right coronary artery: Dominant; chronic mid vessel occlusion with R to R and L to R collaterals. LVEDP 19 mmHg. Apical hypokinesis. LVEF approx 45% - Cardiac cath on 01-12-23 without intervention following pt c/o CP: Left main coronary artery: short, Ok. Left anterior descending coronary artery: Patent Skypoint 2.5 x 23 in mid LAD placed earlier today (TAD 3 flow), very distal LAD 99-100% unchanged from before (vessel of very small caliber). Left circumflex coronary artery: diffuse moderate disease. Right coronary artery: Dominant; chronic mid vessel occlusion with R to R and L to R collaterals Chronic non-specific chest discomfort which does not appear cardiac in origin as shown by repeat cardiac cath as documented above - undetermined etiology - PPI started add H2 eugenio Shortness of breath, probably multifactorial - COPD - chronic diastolic CHF DM II or GUILLERMO, insulin-requiring CKD 3 HTN Tobaccoism COPD Carotid u/s of 05-10-[address] [facility] showed no significant stenosis Plan: S/P successful coronary intervention on 01-19-23. We discussed details with him and advised med compliance and outpt f/u Chronic non-specific chest discomfort which does not appear cardiac in origin based on repeat cardiac cath following successful coronary intervention as noted above - add Pepcid to PPI Ambulate in halls this morning: did well Discharge today TAQUERIA ERIC MD FACP FACC CCDS Jan 20, 2023 17:18
== END 2023-01-20 14:40 | disposition home or self-care (01) ==
LOC: CATH 07:09 → EDSTATUS 09:00 → CATH 12:36 → ICU 12:36 → CATH 01-20 14:40 → ICU 01-20 14:40
PROVIDERS: ATTEND Internal Medicine Cardiovascular Disease
DX: I25.10 Atherosclerotic heart disease of native coronary artery without angina pectoris (principal); J44.9 Chronic obstructive pulmonary disease, unspecified; I50.32 Chronic diastolic (congestive) heart failure; E11.9 Type 2 diabetes mellitus without complications; N18.30 Chronic kidney disease, stage 3 unspecified; I13.0 Hypertensive heart and chronic kidney disease with heart failure and stage 1 through stage 4 chronic kidney disease, or unspecified chronic kidney disease; E11.22 Type 2 diabetes mellitus with diabetic chronic kidney disease; R94.39 Abnormal result of other cardiovascular function study; R07.89 Other chest pain; F17.210 Nicotine dependence, cigarettes, uncomplicated; Z79.82 Long term (current) use of aspirin; Z79.84 Long term (current) use of oral hypoglycemic drugs; Z79.4 Long term (current) use of insulin; Z28.310 Unvaccinated for COVID-19
CPT/HCPCS: 36415; 80048; 80053; 80061; 82947; 85027; 85610; 85730; 87081; 93005; 93454; 93458